=== PATIENT | female | born 1965 | race African-American/Black ===

== ENCOUNTER 2016-08-26 21:57 | Emergency (ER) | payer OTHER ==
[2016-08-26 22:10] VITALS: BP 127/57; PULSE 93; TEMP 98.6; BMI 36.6
--- NOTE | 2016-08-26 22:57 | PDOC ---
History of Present Illness - General History Source: Patient, Old Records Exam Limitations: No Limitations - History of Present Illness Initial Comments: 08/26/16 23:09 The patient is a 50 year old female with a with past medical history of DM, asthma, anemia, migraines, COPD (active smoker), HTN, HLD, CAD, CVA, ARVIND who presents to the emergency department today for further evaluation of a headache for 5 days, abdominal pains and vomiting for two days. The patint notes that her abdominal pain feels like tightness and radiates from her left lower quadrant to her right lower quardrant. The patient reports that she last vomited at 8 pm today. The patient also reports right 5th finger edema. <Adam Roberson - Last Filed: 08/27/16 01:55> <Elena Lucero - Last Filed: 08/27/16 02:39> - General Chief Complaint: Pain Stated Complaint: ABD PAIN Time Seen by Provider: 08/26/16 22:17 Past History <Adam Roberson - Last Filed: 08/27/16 01:55> - Past Medical History Anemia: Yes Asthma: Yes Cancer: No Cardiac Disorders: Yes (chest pain, CAD, [place] x3) CVA: Yes (CVA x3, TIA, left sided residual) COPD: Yes CHF: No Dementia: No Diabetes: Yes GI Disorders: Yes (PEPTIC ULCER) Disorders: No HTN: Yes Hypercholesterolemia: Yes HIV: (PT REPORTS SHE IS POITIVE ON HER RECORDS BUT REPORTS SHE IS NEGATIVE) Liver Disease: No Psychiatric Problems: Yes (BIPOLAR, POST TRAMATIC STRESS) Suicide Attempt (Hx): No Seizures: No Thyroid Disease: No - Surgical History Abdominal Surgery: Yes Appendectomy: No Cardiac Surgery: No Cholecystectomy: No Lung Surgery: No Neurologic Surgery: No Orthopedic Surgery: No - Immunization History Immunization Up to Date: No - Psycho/Social/Smoking Cessation Hx Anxiety: Yes (DEPRESSION, BORDERLINE PERS DISORDER, PTSD) Suicidal Ideation: No Smoking Status: Yes Smoking History: Current every day smoker Have you smoked in the past 12 months: Yes Number of Cigarettes Smoked Daily: 3 If you are a former smoker, when did you quit?: 09/18/14 Cigars Per Day: 20 Information on smoking cessation initiated: No 'Breaking Loose' booklet given: 10/30/14 Hx Alcohol Use: No Drug/Substance Use Hx: No Substance Use Type: None Hx Substance Use Treatment: Yes <Elena Lucero - Last Filed: 08/27/16 02:39> - Past Medical History Allergies/Adverse Reactions: Allergies Allergy/AdvReac Type Severity Reaction Status Date / Time hydromorphone HCl Allergy Intermediate Itching Verified 08/26/16 22:04 [From Dilaudid] amoxicillin [Amoxicillin] Allergy Verified 08/26/16 22:04 ampicillin Allergy Verified 08/26/16 22:04 aspirin Allergy Verified 08/26/16 22:04 cranberry Allergy Verified 08/26/16 22:04 doxycycline Allergy Verified 08/26/16 22:04 Fish Containing Products Allergy Difficulty Verified 08/26/16 22:04 Breathing haloperidol [From Haldol] Allergy Verified 08/26/16 22:04 haloperidol lactate Allergy Verified 08/26/16 22:04 [From Haldol] ibuprofen [From Motrin] Allergy Verified 08/26/16 22:04 ketorolac tromethamine Allergy Verified 08/26/16 22:04 [From Toradol] levofloxacin [From Levaquin] Allergy Verified 08/26/16 22:04 lidocaine [From Lidoderm] Allergy Verified 08/26/16 22:04 milk Allergy Difficulty Verified 08/26/16 22:04 Breathing oxycodone HCl [From Percocet] Allergy Verified 08/26/16 22:04 Penicillins Allergy Verified 08/26/16 22:04 sulfamethoxazole Allergy Verified 08/26/16 22:04 [From Bactrim] tomato [Tomato] Allergy Hives Verified 08/26/16 22:04 trimethoprim [From Bactrim] Allergy Verified 08/26/16 22:04 warfarin sodium Allergy Verified 08/26/16 22:04 [From Coumadin] Gravy Allergy Unknown Uncoded 08/26/16 22:04 Cranberry/Cranberry juice Allergy Uncoded 08/26/16 22:04 Home Medications: Ambulatory Orders Clopidogrel Bisulfate [Plavix -] 75 mg PO DAILY #0 04/12/14 Docusate Sodium [Colace -] 100 mg PO DAILY #0 04/12/14 Sitagliptin Phosphate [Januvia -] 100 mg PO AM #0 04/12/14 Metformin HCl [Glucophage] 1,000 mg PO BID 05/12/14 Quetiapine Fumarate [Seroquel -] 450 mg PO HS 05/12/14 Simvastatin [Zocor -] 40 mg PO HS 05/12/14 Bupropion HCl [Forfivo Xl] 450 mg PO DAILY 09/18/14 Ferrous Sulfate [Feosol] 325 mg PO DAILY 09/18/14 Albuterol 0.083% Nebulizer Laurie [Ventolin 0.083% Nebulizer Soln -] 1 neb NEB Q6H PRN 09/27/14 Albuterol Sulfate Inhaler - [Ventolin HFA Inhaler -] 2 inh PO Q4H PRN 09/27/14 Nebulizer/Compressor [Comp-Air Elite Comp Nebulizer] 1 each MC DAILY #1 each Insulin Lispro [Humalog] 5 unit SQ TID 10/31/14 Aripiprazole [Abilify -] 10 mg PO DAILY 10/23/15 Cephalexin [Keflex] 500 mg PO QID #40 capsule 10/23/15 Clonazepam [Klonopin] 1 mg PO BID 10/23/15 Divalproex [Depakote -] 500 mg PO DAILY 10/23/15 Insulin Detemir [Levemir Flextouch] 10 unit SQ HS 10/23/15 Levothyroxine Sodium [Unithroid] 50 mcg PO DAILY 10/23/15 Morphine *Immediate Release* [Msir -] 15 mg PO Q6H PRN 10/23/15 Nitrofurantoin Monohyd/M-Cryst [Macrobid -] 100 mg PO BID 10/23/15 Nitroglycerin Sublingual [Nitrostat -] 0.6 mg SL BID PRN 10/23/15 Ondansetron HCl [Zofran] 4 mg PO Q8H 10/23/15 Pantoprazole Sodium [Protonix -] 40 mg PO DAILY 10/23/15 Polyethylene Glycol 3350 [Miralax (For Daily Use) -] 17 gm PO DAILY 10/23/15 Quetiapine Fumarate [Seroquel] 200 tab PO DAILY 10/23/15 Sennosides [Senna] 8.6 mg PO HS 10/23/15 Cephalexin Monohydrate [Keflex -] 500 mg PO QID #40 capsule 11/26/15 Review of Systems - Review of Systems Able to Perform ROS?: Yes Comments:: 08/26/16 23:10 CONSTITUTIONAL: Absent: fever, chills, diaphoresis, generalized weakness, malaise, loss of appetite HEENT: Absent: rhinorrhea, nasal congestion, throat pain, throat swelling, difficulty swallowing, mouth swelling, ear pain, eye pain, visual Changes CARDIOVASCULAR: Absent: chest pain, syncope, palpitations, irregular heart rate, lightheadedness , peripheral edema RESPIRATORY: Absent: cough, shortness of breath, dyspnea with exertion, orthopnea, wheezing, stridor, hemoptysis GASTROINTESTINAL: Present: Diarrhea, vomiting Absent: abdominal pain, abdominal distension, constipation, melena, hematochezia GENITOURINARY: Absent: dysuria, frequency, urgency, hesitancy, hematuria, flank pain, genital pain MUSCULOSKELETAL: Present: Right 5th finger edema SKIN: Absent: rash, itching, pallor HEMATOLOGIC/IMMUNOLOGIC: Absent: easy bleeding, easy bruising, lymphadenopathy, frequent infections ENDOCRINE: Absent: unexplained weight gain, unexplained weight loss, heat intolerance, cold intolerance NEUROLOGIC: Present: headache Absent: focal weakness or paresthesias, dizziness, unsteady gait, seizure, mental status changes, bladder or bowel incontinence PSYCHIATRIC: Absent: anxiety, depression, suicidal or homicidal ideation, hallucinations. <Adam Roberson - Last Filed: 08/27/16 01:55> *Physical Exam - Vital Signs Last Vital Signs Temp Pulse Resp BP Pulse Ox 98.6 F 93 H 14 127/57 96 08/26/16 22:05 08/26/16 22:05 08/26/16 22:05 08/26/16 22:05 08/26/16 22:05 - Physical Exam Comments: 08/26/16 23:10 GENERAL: Well developed, well nourished. Awake and alert. No acute distress. HEENT: Normocephalic, atraumatic. PERRLA, EOMI. No conjunctival pallor. Sclera are non- icteric. Moist mucous membranes. Oropharynx is clear. NECK: Supple. Full ROM. No JVD. Carotid pulses 2+ and symmetric, without bruits. No thyromegaly. No lymphadenopathy. CARDIOVASCULAR: Regular rate and rhythm. No murmurs, rubs, or gallops. Distal pulses are 2+ and symmetric. PULMONARY: No evidence of respiratory distress. Lungs clear to auscultation bilaterally. No wheezing, rales or rhonchi. ABDOMINAL: (+) Tenderness on palpation. Soft. Non-distended. No rebound or guarding. No organomegaly. Normoactive bowel sounds. MUSCULOSKELETAL Normal range of motion at all joints. No bony deformities or tenderness. No CVA tenderness. EXTREMITIES: No cyanosis. No clubbing. No edema. No calf tenderness. SKIN: Warm and dry. Normal capillary refill. No rashes. No jaundice. NEUROLOGICAL: Alert, awake, appropriate. Cranial nerves 2-12 intact. No deficits to light touch and temperature in face, upper extremities and lower extremities. No motor deficits in the in face, upper extremities and lower extremities. Normoreflexic in the upper and lower extremities. Normal speech. Toes are down-going bilaterally. Gait is normal without ataxia. PSYCHIATRIC: Cooperative. Good eye contact. Appropriate mood and affect. <Adam Roberson - Last Filed: 08/27/16 01:55> - Vital Signs Last Vital Signs Temp Pulse Resp BP Pulse Ox 98.6 F 93 H 14 127/57 96 08/26/16 22:05 08/26/16 22:05 08/26/16 22:05 08/26/16 22:05 08/26/16 22:05 <Elena Lucero - Last Filed: 08/27/16 02:39> ED Treatment Course - LABORATORY CBC & Chemistry Diagram: 08/26/16 23:45 08/26/16 23:45 <Adam Roberson - Last Filed: 08/27/16 01:55> - LABORATORY CBC & Chemistry Diagram: 08/26/16 23:45 08/26/16 23:45 <Elena Lucero - Last Filed: 08/27/16 02:39> Medical Decision Making - Medical Decision Making 08/27/16 01:55 Called skilled nursing. Patient's nurse was informed that the patient has a UTI and requested a psych eval. <Adam Roberson - Last Filed: 08/27/16 01:55> - Medical Decision Making 08/27/16 01:44 50 yo female BIBA from [facility]. She came WITHOUT ANY paperwork from [facility]. -she has c/o Nausea,vomiting,diarrhea, headache VITAL SIGNS-normotensive, afebrile -cbc and chemistries are unremarkable This pt did not have any vomiting and diarrhea during her ER visit -Urinalysis shows +++UTI I called the skilled nursing and spoke to her nurse. I told her that we received NO PAPERWORK from them. 1-We reviewed the pt's many diagnoses_ migraines, type 2 diabetes, undifferentiated schizophrenia, copd,, atypical face pain,OA 2-I reviewed her stable VS and the lab work with the nurse 3-I informed the nurse that this pt has a UTI and will be started on macrobid 4-the pt will be discharged back to the [facility] 5-pt will need continued antibiotics for her UTI I explained that I started her on macrobid because of the multiple antibiotic allergies I also called Dr Ernie Banuelos and told him of this pt's ER visit and the need for antibiotics for UTI at the skilled nursing. plan- since the pt was afebrile,hod no vomiting in ER,it was felt that we would try to place the pt on po antibiotics at this time 08/27/16 02:21 <Elena Lucero - Last Filed: 08/27/16 02:39> *DC/Admit/Observation/Transfer - Attestations Scribe Attestion: 08/26/16 23:10 Documentation prepared by Adam Roberson, acting as medical receptionist for Elena Lucero MD. <Adam Roberson - Last Filed: 08/27/16 01:55> <Elena Lucero - Last Filed: 08/27/16 02:39> Diagnosis at time of Disposition: UTI (urinary tract infection) Qualifiers: Urinary tract infection type: site unspecified Hematuria presence: without hematuria Qualified Code(s): N39.0 - Urinary tract infection, site not specified - Discharge Dispostion Disposition: HOME Condition at time of disposition: Stable - Patient Instructions Printed Discharge Instructions: DI for Urinary Tract Infection (UTI) Additional Instructions: THIS PATIENT HAS A UTI AND NEEDS ANTIBIOTICS. DUE TO MULTIPLE ALLERGIES SHE WAS STARTED ON MACROBID
[2016-08-26] MEDS ORDERED: ONDANSETRON *ODT* 4 MG TABLET SL ONE (23:02)
[2016-08-26] MEDS ORDERED: ONDANSETRON *ODT* 4 MG TABLET ONE (23:56)
[2016-08-27 00:07] LABS: BASOPHIL 0.7 % (0-2.0); EOSINOPHIL 1.2 % (0-4.5); MCH 28.2 pg (25.7-33.7); MCHC 34.5 g/dl (32.0-36.0); MEAN CELL VOLUME 81.7 fl (80-96); MEAN PLT VOLUME 10.6 fl (7.5-11.1); NEUTROPHILS 63.8 % (42.8-82.8); PLATELET COUNT 166 K/MM3 (134-434); WHITE BLOOD COUNT 9.8 K/mm3 (4.0-10.0)
[2016-08-27] MEDS ORDERED: SODIUM CHLORIDE 1,000 ML IV STA (00:29)
[2016-08-27 00:32] LABS: ALBUMIN 3.4 g/dl (3.4-5.0); ANION GAP 7 (8-16); BILIRUBIN,TOTAL 0.3 mg/dL (0.2-1.0); CALCIUM 8.8 mg/dL (8.5-10.1); CO2 31 mmol/L (21-32); CREATININE 0.9 mg/dL (0.55-1.02); GLUCOSE,RANDOM 83 mg/dL (74-106); SGPT/ALT 18 U/L (12-78)
[2016-08-27 00:33] LABS: ALK PHOS 85 U/L (45-117)
[2016-08-27 00:35] LABS: SGOT/AST 21 U/L (15-37)
[2016-08-27 01:15] LABS: URINE APPEARANCE SLCLOUDY; URINE BILIRUBIN NEGATIVE (NEGATIVE); URINE BLOOD NEGATIVE (NEGATIVE); URINE COLOR YELLOW; URINE GLUCOSE (UA) NEGATIVE (NEGATIVE); URINE KETONE NEGATIVE (NEGATIVE); URINE NITRITE NEGATIVE (NEGATIVE); URINE PROTEIN NEGATIVE (NEGATIVE); URINE UROBILINOGEN NEGATIVE E.U./dl (0.2-1.0)
[2016-08-27 01:19] LABS: URINE LEUK ESTERASE 3+ (NEGATIVE)
[2016-08-27 01:22] LABS: URINE BACTERIA RARE /hpf (NONE SEEN); URINE HYALINE CAST 3 /lpf; URINE MUCUS RARE; URINE RBC 4 /hpf (0-3); URINE WBC 69 /hpf (3-5)
[2016-08-27] MEDS ORDERED: morphine CARPU-JECT 2 MG/1 ML DISP.SYRIN IVPUSH ONE (01:42)
[2016-08-27] MEDS ORDERED: PHENAZOPYRIDINE HCL 100 MG TABLET (FP) PO ONE (01:43)
[2016-08-27] MEDS ORDERED: NITROFURANTOIN MACROCRYSTAL 50 MG CAPSULE (FP) PO SCH (01:45)
[2016-08-27] MEDS ORDERED: NITROFURANTOIN MACROCRYSTAL 50 MG CAPSULE (FP) ONE (01:46)
[2016-08-27] MEDS ORDERED: PHENAZOPYRIDINE HCL 100 MG TABLET (FP) ONE (01:46)
[2016-08-27] MEDS ORDERED: morphine CARPU-JECT 2 MG/1 ML DISP.SYRIN ONE (01:46)
== END 2016-08-27 03:57 ==
LOC: JER 21:57
PROC: 3E0337Z Introduction of Electrolytic and Water Balance Substance into Peripheral Vein, Percutaneous Approach (ICD-10-PCS; principal; 2016-08-26)
PROC: 3E033NZ Introduction of Analgesics, Hypnotics, Sedatives into Peripheral Vein, Percutaneous Approach (ICD-10-PCS; 2016-08-26)
DX: N39.0 Urinary tract infection, site not specified (principal); D64.9 Anemia, unspecified; J45.909 Unspecified asthma, uncomplicated; I25.10 Atherosclerotic heart disease of native coronary artery without angina pectoris; I10 Essential (primary) hypertension; F17.220 Nicotine dependence, chewing tobacco, uncomplicated; I25.2 Old myocardial infarction; I69.854 Hemiplegia and hemiparesis following other cerebrovascular disease affecting left non-dominant side; E11.9 Type 2 diabetes mellitus without complications; Z79.4 Long term (current) use of insulin; Z79.84 Long term (current) use of oral hypoglycemic drugs; J44.9 Chronic obstructive pulmonary disease, unspecified; F31.9 Bipolar disorder, unspecified; F43.10 Post-traumatic stress disorder, unspecified
CPT/HCPCS: 36415; 80053; 81003; 81015; 85025; 96361; 96374; 99283-25

== ENCOUNTER → 2016-11-08 | Emergency (ER) | payer OTHER ==
[~2016-11-08] MED LIST: DEXTROSE 5%-0.45% SALINE 1,000 ML IV SCH
[2016-11-08 19:00] VITALS: TEMP 98.4; BMI 36.9
--- NOTE | 2016-11-08 19:56 | PDOC ---
History of Present Illness - General History Source: Patient Exam Limitations: No Limitations - History of Present Illness Initial Comments: 11/08/16 20:04 The patient is a 51 year old female with significant past medical history of multiple drug and food allergy, diabetes, CAD, hypertension, hyperlipidemia, CVA with mild L sided weakness, asthma/COPD, nicotine dependence, ARVIND, anemia, and migraines who presents to the ED [facility] from [facility] for 1 day of L sided chest pain. Patient describes her pain as a 10/10 and sharp sensation radiating down the L arm with associated SOB and nausea, but no vomiting. No exacerbating or alleviating factors. States she developed pain yesterday while at rest. Patient also has complaints of abdominal discomfort. Denies lightheadedness, diaphoresis, jaw pain, palpitations, or leg swelling. The patient denies fever, chills, cough, and diarrhea. Allergies: hydromorphone HCl, amoxicillin, ampicillin, aspirin, doxycycline, haloperidol, haloperidol lactate, ibuprofen, ketorolac tromethamine, levofloxacin, lidocaine, oxycodone HCl, penicillins, sulfamethoxazole, trimethoprim, warfarin sodium Social History: Current smoker (ppd). Cocaine use Past Surgical History: partial hysterectomy PCP: Dr. Juan Manuel Roy <Priya Gomez - Last Filed: 11/09/16 01:37> - General History Source: Patient <Marcellus Castaneda - Last Filed: 11/12/16 19:18> - General Chief Complaint: Chest Pain Stated Complaint: CHEST PAIN Time Seen by Provider: 11/08/16 19:52 Past History <Priya Gomez - Last Filed: 11/09/16 01:37> - Past Medical History Anemia: Yes Asthma: Yes Cancer: No Cardiac Disorders: Yes (chest pain, CAD, [place] x3) CVA: Yes (CVA x3, TIA, left sided residual) COPD: Yes CHF: No Dementia: No Diabetes: Yes GI Disorders: Yes (PEPTIC ULCER) Disorders: No HTN: Yes Hypercholesterolemia: Yes HIV: (PT REPORTS SHE IS POITIVE ON HER RECORDS BUT REPORTS SHE IS NEGATIVE) Liver Disease: No Psychiatric Problems: Yes (BIPOLAR, POST TRAMATIC STRESS) Suicide Attempt (Hx): No Seizures: No Thyroid Disease: No - Surgical History Abdominal Surgery: Yes Appendectomy: No Cardiac Surgery: No Cholecystectomy: No Lung Surgery: No Neurologic Surgery: No Orthopedic Surgery: No - Immunization History Immunization Up to Date: No - Psycho/Social/Smoking Cessation Hx Anxiety: No Suicidal Ideation: No Smoking Status: Yes Smoking History: Unknown if ever smoked Have you smoked in the past 12 months: No Number of Cigarettes Smoked Daily: 3 If you are a former smoker, when did you quit?: 09/18/14 Cigars Per Day: 20 Information on smoking cessation initiated: No 'Breaking Loose' booklet given: 10/30/14 Hx Alcohol Use: No Drug/Substance Use Hx: No Substance Use Type: None Hx Substance Use Treatment: Yes <Marcellus Castaneda - Last Filed: 11/12/16 19:18> - Past Medical History Allergies/Adverse Reactions: Allergies Allergy/AdvReac Type Severity Reaction Status Date / Time hydromorphone HCl Allergy Intermediate Itching Verified 11/08/16 19:01 [From Dilaudid] amoxicillin [Amoxicillin] Allergy Verified 11/08/16 19:01 ampicillin Allergy Verified 11/08/16 19:01 aspirin Allergy Verified 11/08/16 19:01 cranberry Allergy Verified 11/08/16 19:01 doxycycline Allergy Verified 11/08/16 19:01 Fish Containing Products Allergy Difficulty Verified 11/08/16 19:01 Breathing haloperidol [From Haldol] Allergy Verified 11/08/16 19:01 haloperidol lactate Allergy Verified 11/08/16 19:01 [From Haldol] ibuprofen [From Motrin] Allergy Verified 11/08/16 19:01 ketorolac tromethamine Allergy Verified 11/08/16 19:01 [From Toradol] levofloxacin [From Levaquin] Allergy Verified 11/08/16 19:01 lidocaine [From Lidoderm] Allergy Verified 11/08/16 19:01 milk Allergy Difficulty Verified 11/08/16 19:01 Breathing oxycodone HCl [From Percocet] Allergy Verified 11/08/16 19:01 Penicillins Allergy Verified 11/08/16 19:01 sulfamethoxazole Allergy Verified 11/08/16 19:01 [From Bactrim] tomato [Tomato] Allergy Hives Verified 11/08/16 19:01 trimethoprim [From Bactrim] Allergy Verified 11/08/16 19:01 warfarin sodium Allergy Verified 11/08/16 19:01 [From Coumadin] Gravy Allergy Unknown Uncoded 11/08/16 19:01 Cranberry/Cranberry juice Allergy Uncoded 11/08/16 19:01 Home Medications: Ambulatory Orders Clopidogrel Bisulfate [Plavix -] 75 mg PO DAILY #0 04/12/14 Docusate Sodium [Colace -] 100 mg PO DAILY #0 04/12/14 Sitagliptin Phosphate [Januvia -] 100 mg PO AM #0 04/12/14 Metformin HCl [Glucophage] 1,000 mg PO BID 05/12/14 Quetiapine Fumarate [Seroquel -] 450 mg PO HS 05/12/14 Simvastatin [Zocor -] 40 mg PO HS 05/12/14 Bupropion HCl [Forfivo Xl] 450 mg PO DAILY 09/18/14 Ferrous Sulfate [Feosol] 325 mg PO DAILY 09/18/14 Albuterol 0.083% Nebulizer Laurie [Ventolin 0.083% Nebulizer Soln -] 1 neb NEB Q6H PRN 09/27/14 Albuterol Sulfate Inhaler - [Ventolin HFA Inhaler -] 2 inh PO Q4H PRN 09/27/14 Insulin Lispro [Humalog] 5 unit SQ TID 10/31/14 Aripiprazole [Abilify -] 10 mg PO DAILY 10/23/15 Cephalexin [Keflex] 500 mg PO QID #40 capsule 10/23/15 Clonazepam [Klonopin] 1 mg PO BID 10/23/15 Divalproex [Depakote -] 500 mg PO DAILY 10/23/15 Insulin Detemir [Levemir Flextouch] 10 unit SQ HS 10/23/15 Levothyroxine Sodium [Unithroid] 50 mcg PO DAILY 10/23/15 Morphine *Immediate Release* [Msir -] 15 mg PO Q6H PRN 10/23/15 Nitroglycerin Sublingual [Nitrostat -] 0.6 mg SL BID PRN 10/23/15 Ondansetron HCl [Zofran] 4 mg PO Q8H 10/23/15 Pantoprazole Sodium [Protonix -] 40 mg PO DAILY 10/23/15 Polyethylene Glycol 3350 [Miralax (For Daily Use) -] 17 gm PO DAILY 10/23/15 Quetiapine Fumarate [Seroquel] 200 tab PO DAILY 10/23/15 Sennosides [Senna] 8.6 mg PO HS 10/23/15 Unobtainable 08/27/16 Review of Systems - Review of Systems Able to Perform ROS?: Yes Comments:: 11/08/16 20:04 CONSTITUTIONAL: Absent: fever, chills, diaphoresis, generalized weakness, malaise, loss of appetite HEENT: Absent: rhinorrhea, nasal congestion, throat pain, throat swelling, difficulty swallowing, mouth swelling, ear pain, eye pain, visual Changes CARDIOVASCULAR: +L sided chest pain radiating down L arm Absent: syncope, palpitations, irregular heart rate, lightheadedness, peripheral edema RESPIRATORY: +SOB Absent: cough, dyspnea with exertion, orthopnea, wheezing, stridor, hemoptysis GASTROINTESTINAL: +abdominal discomfort, nausea Absent: abdominal distension, vomiting, diarrhea, constipation, melena, hematochezia GENITOURINARY: Absent: dysuria, frequency, urgency, hesitancy, hematuria, flank pain, genital pain MUSCULOSKELETAL: Absent: arthralgia, joint swelling SKIN: Absent: rash, itching, pallor NEUROLOGIC: Absent: headache, focal paresthesias, dizziness, unsteady gait, seizure, mental status changes, bladder or bowel incontinence <Priya Gomez - Last Filed: 11/09/16 01:37> *Physical Exam - Vital Signs Last Vital Signs Temp Pulse Resp BP Pulse Ox 98.4 F 84 18 103/75 97 11/08/16 18:36 11/08/16 18:36 11/08/16 18:36 11/08/16 18:36 11/08/16 18:36 - Physical Exam Comments: 11/08/16 20:04 GENERAL: Morbidly obese. Well developed, well nourished. Awake and alert. No acute distress. HEENT: Normocephalic, atraumatic. PERRLA, EOMI. No conjunctival pallor. Sclera are non- icteric. Moist mucous membranes. Oropharynx is clear. NECK: Supple. Full ROM. No JVD. Carotid pulses 2+ and symmetric, without bruits. No thyromegaly. No lymphadenopathy. CARDIOVASCULAR: Regular rate and rhythm. No murmurs, rubs, or gallops. Distal pulses are 2+ and symmetric. PULMONARY: No evidence of respiratory distress. Lungs clear to auscultation bilaterally. No wheezing, rales or rhonchi. ABDOMINAL: Protuberant. Soft. Non-tender. Non-distended. No rebound or guarding. No organomegaly. Normoactive bowel sounds. MUSCULOSKELETAL Normal range of motion at all joints. No bony deformities or tenderness. No CVA tenderness. EXTREMITIES: No cyanosis. No clubbing. No edema. No calf tenderness. SKIN: Warm and dry. Normal capillary refill. No rashes. No jaundice. NEUROLOGICAL: Alert, awake, appropriate. Cranial nerves 2-12 intact. No gross neurological deficits. <Priya Gomez - Last Filed: 11/09/16 01:37> - Vital Signs Last Vital Signs Temp Pulse Resp BP Pulse Ox 98.4 F 84 18 103/75 97 11/08/16 18:36 11/08/16 18:36 11/08/16 18:36 11/08/16 18:36 11/08/16 18:36 <Marcellus Castaneda - Last Filed: 11/12/16 19:18> Heart Score/ECG Review - ECG Impressions Comment:: 11/08/16 20:04 NSR @84bpm Cannot r/o anterior infarct, age undetermined Abnormal ECG 11/09/16 01:37 NSR @83bpm Nonspecific T wave abnormality Prolonged QT Abnormal ECG <Priya Gomez - Last Filed: 11/09/16 01:37> ED Treatment Course - LABORATORY CBC & Chemistry Diagram: 11/08/16 20:00 11/08/16 21:20 <Priya Gomez - Last Filed: 11/09/16 01:37> - LABORATORY CBC & Chemistry Diagram: 11/08/16 20:00 11/08/16 21:20 <Marcellus Castaneda - Last Filed: 11/12/16 19:18> Medical Decision Making - Medical Decision Making 11/08/16 22:[address] Jassi Lee (via answering service) who is covering for Dr. Juan Manuel Roy at 22:20 Awaiting call back 11/08/16 22:34 Patient's case discussed with Dr. Dawson Herman who is covering for Dr. Lee at 22:34 <Priya Gomez - Last Filed: 11/09/16 01:37> - Medical Decision Making 11/09/16 02:02 Pt is hemodynamically stable. Sugar improved to 86. No chest pain at this time. EKG unchanged from the first one. Will discharged back to [facility]. 11/12/16 19:18 Dr. Castaneda: The scribe's documentation has been prepared under my direction and personally reviewed by me in its entirery. I confirm that the note above accurately reflects all work, treatment, procedures, and medical decision making performed by me. <Marcellus Castaneda - Last Filed: 11/12/16 19:18> *DC/Admit/Observation/Transfer - Attestations Scribe Attestion: 11/08/16 20:05 Documentation prepared by Priya Gomez, acting as medical record technician for Marcellus Castaneda MD/DO. <Priya Gomez - Last Filed: 11/09/16 01:37> - Discharge Dispostion Admit: No <Marcellus Castaneda - Last Filed: 11/12/16 19:18> Diagnosis at time of Disposition: Diabetes type 2, controlled, Chest pain - Discharge Dispostion Disposition: HOME Condition at time of disposition: Stable - Referrals Referrals: Juan Manuel Roy [Primary Care Provider] - - Patient Instructions Printed Discharge Instructions: DI for Chest Pain
[2016-11-08 20:46] LABS: BASOPHIL 0.8 % (0-2.0); EOSINOPHIL 3.1 % (0-4.5); MCH 27.3 pg (25.7-33.7); MCHC 33.6 g/dl (32.0-36.0); MEAN CELL VOLUME 81.3 fl (80-96); MEAN PLT VOLUME 10.6 fl (7.5-11.1); NEUTROPHILS 62.4 % (42.8-82.8); PLATELET COUNT 207 K/MM3 (134-434); RDW 16.7 % (11.6-15.6)
[2016-11-08 21:48] LABS: INR 1.12 (0.82-1.09); PROTHROMBIN TIME (PATIENT) 12.3 SEC (9.98-11.88)
[2016-11-08 21:52] LABS: ALBUMIN 3.3 g/dl (3.4-5.0); ANION GAP 9 (8-16); BILIRUBIN,TOTAL 0.2 mg/dL (0.2-1.0); CALCIUM 8.4 mg/dL (8.5-10.1); CO2 27 mmol/L (21-32); CREATININE 1.1 mg/dL (0.55-1.02); GLUCOSE,RANDOM 65 mg/dL (74-106); MAGNESIUM 1.7 mg/dL (1.8-2.4); SGOT/AST 14 U/L (15-37); SGPT/ALT 16 U/L (12-78); TOT PROT 6.9 g/dl (6.4-8.2)
[2016-11-08 21:54] LABS: ALK PHOS 87 U/L (45-117); TROPONIN I < 0.02 ng/ml (0.00-0.05)
[2016-11-09 05:17] VITALS: BP 86/58; PULSE 83
--- NOTE | 2016-11-09 10:02 | EKG ---
Test Reason : Blood Pressure : / mmHG Vent. Rate : 084 BPM Atrial Rate : 084 BPM P-R Int : 144 ms QRS Dur : 090 ms QT Int : 378 ms P-R-T Axes : 038 017 028 degrees QTc Int : 446 ms NORMAL SINUS RHYTHM CANNOT RULE OUT ANTERIOR INFARCT , AGE UNDETERMINED ABNORMAL ECG WHEN COMPARED WITH ECG OF 29-OCT-2014 23:56, NONSPECIFIC T WAVE ABNORMALITY, IMPROVED IN INFERIOR LEADS Confirmed by CARA DANIELS, NAVNEET ([id number]) on 11/09/2016 10:01:56 AM Referred By: Confirmed By:NAVNEET MARROQUIN MD
--- NOTE | 2016-11-10 15:39 | EKG ---
Test Reason : Blood Pressure : / mmHG Vent. Rate : 083 BPM Atrial Rate : 083 BPM P-R Int : 146 ms QRS Dur : 088 ms QT Int : 392 ms P-R-T Axes : 042 030 047 degrees QTc Int : 460 ms NORMAL SINUS RHYTHM NONSPECIFIC T WAVE ABNORMALITY PROLONGED QT ABNORMAL ECG WHEN COMPARED WITH ECG OF 08-NOV-2016 18:50, NO SIGNIFICANT CHANGE WAS FOUND Confirmed by TAMIE DANIELS, PRITI ([id number]) on 11/10/2016 3:38:46 PM Referred By: Confirmed By:PRITI WILLETT MD
== END | disposition home or self-care (01) ==
LOC: JER 18:36
DX: E11.9 Type 2 diabetes mellitus without complications (principal); R07.9 Chest pain, unspecified; I25.10 Atherosclerotic heart disease of native coronary artery without angina pectoris; I10 Essential (primary) hypertension; E78.5 Hyperlipidemia, unspecified; J44.9 Chronic obstructive pulmonary disease, unspecified; Z86.73 Personal history of transient ischemic attack (TIA), and cerebral infarction without residual deficits; G47.33 Obstructive sleep apnea (adult) (pediatric); F31.9 Bipolar disorder, unspecified; Z87.891 Personal history of nicotine dependence; Z79.4 Long term (current) use of insulin
CPT/HCPCS: 36415; 71010-TC; 80053; 82550; 82553; 83690; 83735; 84484; 85025; 85610; 93005; 93010; 99283-25

== ENCOUNTER 2016-11-28 03:32 | Emergency (ER) | payer OTHER ==
[2016-11-28 04:00] VITALS: BP 98/65; PULSE 89; TEMP 98.8; BMI 36.9
--- NOTE | 2016-11-28 04:16 | PDOC ---
*Physical Exam - Vital Signs Last Vital Signs Temp Pulse Resp BP Pulse Ox 98.8 F 89 18 98/65 98 11/28/16 03:32 11/28/16 03:32 11/28/16 03:32 11/28/16 03:32 11/28/16 03:32 Medical Decision Making - Medical Decision Making 11/28/16 04:15 agree with care from KEYLINER Kurt *DC/Admit/Observation/Transfer Diagnosis at time of Disposition: Leg pain, bilateral - Discharge Dispostion Disposition: [facility] Condition at time of disposition: Stable - Referrals Referrals: Juan Manuel Roy [Primary Care Provider] - - Patient Instructions Printed Discharge Instructions: DI for Leg Pain Print Language: KENYAN
--- NOTE | 2016-11-28 05:36 | PDOC ---
History of Present Illness - General Chief Complaint: Pain Stated Complaint: LEG PAIN Time Seen by Provider: 11/28/16 03:44 History Source: Patient Exam Limitations: No Limitations - History of Present Illness Initial Comments: 11/28/16 05:32 51yo Female patient with extensive PmHx: HTN, HLD, CVA w/ Lt hemiparesis, COPD , Asthma, NIDDM, CAD, multiple food and drug allergies presents to ED via EMS from [facility] c/o nonspecific leg pain and staff wouldnt give her pain medications early. Patient denies CP, Abd pain, back pain, n/v/d, fever, diff breathing, coughing, congestion, or any other complaints at this time. Occurred: reports: just prior to arrival Severity: No: mild, moderate, severe Lower Extremity Pain Location: bilateral: leg Method of Injury: Yes: unknown. No: assault, burn, direct blow, fell, incised, motor vehicle accident, sports injury, twisted, other Modifying Factors: worse with: None, cold therapy, immobilization, pain medication, rest, other Associated Symptoms: Denies Lower Ext. Injury Location - Specific Injury Location Legs: bilateral: normal inspection, non-tender, normal range of motion Knees: bilateral no evidence of injury, bilateral normal range of motion, bilateral non-tender, bilateral normal inspection Extremity Pain Location - Extremity Pain Location Extremity Pain Locations: bilateral: leg (No swelling, edema, inflammation, sores or wounds noted.) Past History - Travel Traveled outside of the country in the last 30 days: No Close contact w/someone who was outside of country & ill: No - Past Medical History Allergies/Adverse Reactions: Allergies Allergy/AdvReac Type Severity Reaction Status Date / Time hydromorphone HCl Allergy Intermediate Itching Verified 11/28/16 03:52 [From Dilaudid] amoxicillin [Amoxicillin] Allergy Verified 11/28/16 03:52 ampicillin Allergy Verified 11/28/16 03:52 aspirin Allergy Verified 11/28/16 03:52 cranberry Allergy Verified 11/28/16 03:52 doxycycline Allergy Verified 11/28/16 03:52 Fish Containing Products Allergy Difficulty Verified 11/28/16 03:52 Breathing haloperidol [From Haldol] Allergy Verified 11/28/16 03:52 haloperidol lactate Allergy Verified 11/28/16 03:52 [From Haldol] ibuprofen [From Motrin] Allergy Verified 11/28/16 03:52 ketorolac tromethamine Allergy Verified 11/28/16 03:52 [From Toradol] levofloxacin [From Levaquin] Allergy Verified 11/28/16 03:52 lidocaine [From Lidoderm] Allergy Verified 11/28/16 03:52 milk Allergy Difficulty Verified 11/28/16 03:52 Breathing oxycodone HCl [From Percocet] Allergy Verified 11/28/16 03:52 Penicillins Allergy Verified 11/28/16 03:52 sulfamethoxazole Allergy Verified 11/28/16 03:52 [From Bactrim] tomato [Tomato] Allergy Hives Verified 11/28/16 03:52 trimethoprim [From Bactrim] Allergy Verified 11/28/16 03:52 warfarin sodium Allergy Verified 11/28/16 03:52 [From Coumadin] Gravy Allergy Unknown Uncoded 11/28/16 03:52 Cranberry/Cranberry juice Allergy Uncoded 11/28/16 03:52 Home Medications: Ambulatory Orders Clopidogrel Bisulfate [Plavix -] 75 mg PO DAILY #0 04/12/14 Docusate Sodium [Colace -] 100 mg PO DAILY #0 04/12/14 Sitagliptin Phosphate [Januvia -] 100 mg PO AM #0 04/12/14 Metformin HCl [Glucophage] 1,000 mg PO BID 05/12/14 Quetiapine Fumarate [Seroquel -] 450 mg PO HS 05/12/14 Simvastatin [Zocor -] 40 mg PO HS 05/12/14 Bupropion HCl [Forfivo Xl] 450 mg PO DAILY 09/18/14 Ferrous Sulfate [Feosol] 325 mg PO DAILY 09/18/14 Albuterol 0.083% Nebulizer Laurie [Ventolin 0.083% Nebulizer Soln -] 1 neb NEB Q6H PRN 09/27/14 Albuterol Sulfate Inhaler - [Ventolin HFA Inhaler -] 2 inh PO Q4H PRN 09/27/14 Insulin Lispro [Humalog] 5 unit SQ TID 10/31/14 Aripiprazole [Abilify -] 10 mg PO DAILY 10/23/15 Cephalexin [Keflex] 500 mg PO QID #40 capsule 10/23/15 Clonazepam [Klonopin] 1 mg PO BID 10/23/15 Divalproex [Depakote -] 500 mg PO DAILY 10/23/15 Insulin Detemir [Levemir Flextouch] 10 unit SQ HS 10/23/15 Levothyroxine Sodium [Unithroid] 50 mcg PO DAILY 10/23/15 Morphine *Immediate Release* [Msir -] 15 mg PO Q6H PRN 10/23/15 Nitroglycerin Sublingual [Nitrostat -] 0.6 mg SL BID PRN 10/23/15 Ondansetron HCl [Zofran] 4 mg PO Q8H 10/23/15 Pantoprazole Sodium [Protonix -] 40 mg PO DAILY 10/23/15 Polyethylene Glycol 3350 [Miralax (For Daily Use) -] 17 gm PO DAILY 10/23/15 Quetiapine Fumarate [Seroquel] 200 tab PO DAILY 10/23/15 Sennosides [Senna] 8.6 mg PO HS 10/23/15 Anemia: Yes Asthma: Yes Cancer: No Cardiac Disorders: Yes (chest pain, CAD, [place] x3) CVA: Yes (CVA x3, TIA, left sided residual) COPD: Yes CHF: No Dementia: No Diabetes: Yes GI Disorders: Yes (PEPTIC ULCER) Disorders: No HTN: Yes Hypercholesterolemia: Yes HIV: (PT REPORTS SHE IS POITIVE ON HER RECORDS BUT REPORTS SHE IS NEGATIVE) Liver Disease: No Psychiatric Problems: Yes (BIPOLAR, POST TRAMATIC STRESS) Suicide Attempt (Hx): No Seizures: No Thyroid Disease: No - Surgical History Abdominal Surgery: Yes Appendectomy: No Cardiac Surgery: No Cholecystectomy: No Lung Surgery: No Neurologic Surgery: No Orthopedic Surgery: No - Immunization History Immunization Up to Date: No - Psycho/Social/Smoking Cessation Hx Anxiety: No Suicidal Ideation: No Smoking Status: Yes Smoking History: Current every day smoker Have you smoked in the past 12 months: No Number of Cigarettes Smoked Daily: 3 If you are a former smoker, when did you quit?: 09/18/14 Cigars Per Day: 20 Information on smoking cessation initiated: No 'Breaking Loose' booklet given: 10/30/14 Hx Alcohol Use: No Drug/Substance Use Hx: No Substance Use Type: None Hx Substance Use Treatment: Yes Review of Systems - Review of Systems Able to Perform ROS?: Yes Is the patient limited Burmese proficient: No Musculoskeletal: Yes: Other (Bilateral Leg Pain) All Other Systems: Reviewed and Negative *Physical Exam - Vital Signs Last Vital Signs Temp Pulse Resp BP Pulse Ox 98.8 F 89 18 98/65 98 11/28/16 03:32 11/28/16 03:32 11/28/16 03:32 11/28/16 03:32 11/28/16 03:32 - Physical Exam General Appearance: Yes: Nourished, Appropriately Dressed. No: Apparent Distress, Mild Distress, Moderate Distress, Severe Distress Respiratory/Chest: positive: Lungs Clear, Normal Breath Sounds. negative: Chest Tender, Respiratory Distress, Accessory Muscle Use, Labored Respiration, Rapid RR Cardiovascular: positive: Regular Rhythm, Regular Rate Gastrointestinal/Abdominal: positive: Normal Bowel Sounds, Soft. negative: Distended, Guarding, Rebound, Tenderness Musculoskeletal: positive: Normal Inspection. negative: CVA Tenderness Extremity: positive: Normal Capillary Refill, Normal Inspection, Normal Range of Motion. negative: Tender, Pedal Edema, Swelling, Calf Tenderness, Erythema, Inflammation Integumentary: positive: Normal Color, Dry, Warm. negative: Cyanotic, Erythema , Pale, Cold, Clammy, Petechiae, Rash, Swelling, Bruising Neurologic: positive: hardwood faller II-XII NML intact, Fully Oriented, Alert, Normal Mood/ Affect, Normal Response, Motor Strength 5/5 *DC/Admit/Observation/Transfer Diagnosis at time of Disposition: Pain in both lower extremities - Discharge Dispostion Disposition: [facility] Condition at time of disposition: Stable Admit: No - Patient Instructions Printed Discharge Instructions: DI for Leg Pain Print Language: SLOVAK
== END 2016-11-28 06:24 ==
LOC: JER 03:32
DX: M79.605 Pain in left leg (principal); M79.604 Pain in right leg; I10 Essential (primary) hypertension; E78.00 Pure hypercholesterolemia, unspecified; J44.9 Chronic obstructive pulmonary disease, unspecified; J45.909 Unspecified asthma, uncomplicated; E11.9 Type 2 diabetes mellitus without complications; Z79.4 Long term (current) use of insulin; Z79.84 Long term (current) use of oral hypoglycemic drugs; F17.210 Nicotine dependence, cigarettes, uncomplicated
CPT/HCPCS: 99282-25

== ENCOUNTER 2016-12-18 16:22 | Emergency (ER) | payer OTHER ==
--- NOTE | 2016-12-18 16:40 | PDOC ---
History of Present Illness - General Chief Complaint: Chronic pain Stated Complaint: BACK PAIN Time Seen by Provider: 12/18/16 16:26 - History of Present Illness Initial Comments: 12/18/16 18:59 The patient is a 51 year old female with a significant past medical history of extensive psych diagnosis and laminectomy with chronic pain who presents to the emergency c/o waking up with severe pain in her back and legs today. She reports pain is constant and shooting in nature and extends from her upper back down her spinal cord to her legs. Her home morphine she says was not helpful. The patient denies chest pain, shortness of breath, headache and dizziness. Denies fever, chills, nausea, vomit, diarrhea and constipation. Denies dysuria, frequency, urgency and hematuria. Allergies:Hydromorphone, amoxicillin, ampicillin, ASA, cranberrys, doxy, fish, haloperidol, ibuprofen, ketorolac, levo, lidocaine, milk Past surgical history: laminectomy, partial hysterectomy Social history: 20 pack year smoking history, denies drinking or illicits PMD - 12/18/16 18:59 Past History - Past Medical History Allergies/Adverse Reactions: Allergies Allergy/AdvReac Type Severity Reaction Status Date / Time hydromorphone HCl Allergy Intermediate Itching Verified 12/18/16 16:42 [From Dilaudid] amoxicillin [Amoxicillin] Allergy Verified 12/18/16 16:42 ampicillin Allergy Verified 12/18/16 16:42 aspirin Allergy Verified 12/18/16 16:42 cranberry Allergy Verified 12/18/16 16:42 doxycycline Allergy Verified 12/18/16 16:42 Fish Containing Products Allergy Difficulty Verified 12/18/16 16:42 Breathing haloperidol [From Haldol] Allergy Verified 12/18/16 16:42 haloperidol lactate Allergy Verified 12/18/16 16:42 [From Haldol] ibuprofen [From Motrin] Allergy Verified 12/18/16 16:42 ketorolac tromethamine Allergy Verified 12/18/16 16:42 [From Toradol] levofloxacin [From Levaquin] Allergy Verified 12/18/16 16:42 lidocaine [From Lidoderm] Allergy Verified 12/18/16 16:42 milk Allergy Difficulty Verified 12/18/16 16:42 Breathing oxycodone HCl [From Percocet] Allergy Verified 12/18/16 16:42 Penicillins Allergy Verified 12/18/16 16:42 sulfamethoxazole Allergy Verified 12/18/16 16:42 [From Bactrim] tomato [Tomato] Allergy Hives Verified 12/18/16 16:42 trimethoprim [From Bactrim] Allergy Verified 12/18/16 16:42 warfarin sodium Allergy Verified 12/18/16 16:42 [From Coumadin] Gravy Allergy Unknown Uncoded 12/18/16 16:42 Cranberry/Cranberry juice Allergy Uncoded 12/18/16 16:42 Home Medications: Ambulatory Orders Clopidogrel Bisulfate [Plavix -] 75 mg PO DAILY #0 04/12/14 Docusate Sodium [Colace -] 100 mg PO DAILY #0 04/12/14 Sitagliptin Phosphate [Januvia -] 100 mg PO AM #0 04/12/14 Metformin HCl [Glucophage] 1,000 mg PO BID 05/12/14 Quetiapine Fumarate [Seroquel -] 450 mg PO HS 05/12/14 Simvastatin [Zocor -] 40 mg PO HS 05/12/14 Bupropion HCl [Forfivo Xl] 450 mg PO DAILY 09/18/14 Ferrous Sulfate [Feosol] 325 mg PO DAILY 09/18/14 Albuterol 0.083% Nebulizer Laurie [Ventolin 0.083% Nebulizer Soln -] 1 neb NEB Q6H PRN 09/27/14 Albuterol Sulfate Inhaler - [Ventolin HFA Inhaler -] 2 inh PO Q4H PRN 09/27/14 Insulin Lispro [Humalog] 5 unit SQ TID 10/31/14 Aripiprazole [Abilify -] 10 mg PO DAILY 10/23/15 Cephalexin [Keflex] 500 mg PO QID #40 capsule 10/23/15 Clonazepam [Klonopin] 1 mg PO BID 10/23/15 Divalproex [Depakote -] 500 mg PO DAILY 10/23/15 Insulin Detemir [Levemir Flextouch] 10 unit SQ HS 10/23/15 Levothyroxine Sodium [Unithroid] 50 mcg PO DAILY 10/23/15 Morphine *Immediate Release* [Msir -] 15 mg PO Q6H PRN 10/23/15 Nitroglycerin Sublingual [Nitrostat -] 0.6 mg SL BID PRN 10/23/15 Ondansetron HCl [Zofran] 4 mg PO Q8H 10/23/15 Pantoprazole Sodium [Protonix -] 40 mg PO DAILY 10/23/15 Polyethylene Glycol 3350 [Miralax (For Daily Use) -] 17 gm PO DAILY 10/23/15 Quetiapine Fumarate [Seroquel] 200 tab PO DAILY 10/23/15 Sennosides [Senna] 8.6 mg PO HS 10/23/15 Anemia: Yes Asthma: Yes Cancer: No Cardiac Disorders: Yes (chest pain, CAD, [place] x3) CVA: Yes (CVA x3, TIA, left sided residual) COPD: Yes CHF: No Dementia: No Diabetes: Yes GI Disorders: Yes (PEPTIC ULCER) Disorders: No HTN: Yes Hypercholesterolemia: Yes HIV: (PT REPORTS SHE IS POITIVE ON HER RECORDS BUT REPORTS SHE IS NEGATIVE) Liver Disease: No Psychiatric Problems: Yes (BIPOLAR, POST TRAMATIC STRESS) Suicide Attempt (Hx): No Seizures: No Thyroid Disease: No - Surgical History Abdominal Surgery: Yes Appendectomy: No Cardiac Surgery: No Cholecystectomy: No Lung Surgery: No Neurologic Surgery: No Orthopedic Surgery: No - Immunization History Immunization Up to Date: No - Psycho/Social/Smoking Cessation Hx Anxiety: No Suicidal Ideation: No Smoking Status: Yes Smoking History: Current every day smoker Have you smoked in the past 12 months: No Number of Cigarettes Smoked Daily: 3 If you are a former smoker, when did you quit?: 09/18/14 Cigars Per Day: 20 'Breaking Loose' booklet given: 10/30/14 Hx Alcohol Use: No Drug/Substance Use Hx: No Substance Use Type: None Hx Substance Use Treatment: Yes Review of Systems - Review of Systems Comments:: 12/18/16 18:59 GENERAL/CONSTITUTIONAL: No fever or chills. No weakness. HEAD, EYES, EARS, NOSE AND THROAT: No change in vision. No ear pain or discharge. No sore throat. CARDIOVASCULAR: No chest pain or shortness of breath RESPIRATORY: No cough, wheezing, or hemoptysis. GASTROINTESTINAL: No nausea, vomiting, diarrhea or constipation. GENITOURINARY: No dysuria, frequency, or change in urination. MUSCULOSKELETAL: +Endorses signficant back pain radiating down her legs SKIN: No rash NEUROLOGIC: No headache, vertigo, loss of consciousness, or change in strength/ sensation. ENDOCRINE: No increased thirst. No abnormal weight change HEMATOLOGIC/LYMPHATIC: No anemia, easy bleeding, or history of blood clots. ALLERGIC/IMMUNOLOGIC: No hives or skin allergy. 12/18/16 19:03 *Physical Exam - Physical Exam Comments: 12/18/16 18:59 GENERAL: Slurred speach and intermittently responsive; at times not able to tell where she is or what her name is HEAD: No signs of trauma, normocephalic, atraumatic EYES: PERRLA, EOMI, sclera anicteric, conjunctiva clear ENT: Auricles normal inspection, hearing grossly normal, nares patent, oropharynx clear without exudates. Moist mucosa NECK: +Pain to palpation at top of spine and down back. Normal ROM, supple, no lymphadenopathy, JVD, or masses LUNGS: No distress, speaks full sentences, clear to auscultation bilaterally HEART: Regular rate and rhythm, normal S1 and S2, no murmurs, rubs or gallops, peripheral pulses normal and equal bilaterally. ABDOMEN: Soft, nontender, normoactive bowel sounds. No guarding, no rebound. No masses EXTREMITIES: Normal inspection, Normal range of motion, no edema. No clubbing or cyanosis. NEUROLOGICAL: Cranial nerves II through XII grossly intact. Normal speech, normal gait, no focal sensorimotor deficits SKIN: Warm, Dry, normal turgor, no rashes or lesions noted. 12/18/16 19:04 ED Treatment Course - LABORATORY CBC & Chemistry Diagram: 12/18/16 18:26 12/18/16 18:26 Medical Decision Making - Medical Decision Making 12/18/16 19:05 Ms. Villela presented to ED for pain control after her home morphine wasn't able to control her pain. During the history taking she had an instance of not knowing where she was or her name and became unresponsive to voice. She retained eyelid reflex and strength in her extremities. Following this she began to answer again and reported continued pain. Ordered xray of thoracic / spine. Ordered UA/CBC/CMP/utox; Utox + for MDMA. Xray of thoracic/spine Head CT all clear of any acute pathology. Discharging to home to resume home medication. 12/18/16 19:07 12/18/16 21:38 12/18/16 21:40 12/18/16 21:44 12/18/16 21:45 *DC/Admit/Observation/Transfer Diagnosis at time of Disposition: Chronic low back pain Qualifiers: Back pain laterality: midline Sciatica presence: with sciatica Sciatica laterality: bilateral sciatica Qualified Code(s): M54.41 - Lumbago with sciatica , right side - Discharge Dispostion Disposition: INTERMEDIATE FACILITY Condition at time of disposition: Stable - Referrals Referrals: Nav Hsu [Primary Care Provider] - - Patient Instructions Printed Discharge Instructions: Managing Chronic Low Back Pain Additional Instructions: Please return if any worsening of pain or new symptoms. - Attestations Physician Attestion: 12/18/16 21:47 I, Dr. Kaden Covarrubias, attest that this document has been prepared under my direction and personally reviewed by me in its entirety. I further attest, that it accurately reflects all work, treatment, procedures and medical decision -making performed by me.
--- NOTE | 2016-12-18 16:47 | PDOC ---
Attending Attestation - Resident Resident Name: Russell Galindo - ED Attending Attestation I have performed the following: I have examined & evaluated the patient, The case was reviewed & discussed with the resident, I agree w/resident's findings & plan, Exceptions are as noted - HPI HPI: 12/18/16 17:52 51y F hx of dm, cad, htn, hl, cva with residual L sided waekness, copd, tessy, chronic back pain presents with back pain. Pt sent b[facility] for wrsening chronic back pain no associated numbness/tingling/weakness, urinary or bowel incontinence. Duyring HPI pt had an episode of nonresponsiveness, the pts eyes were open at the time, pupils were reactive approx 4mm and reactive to light, she maintained tone in her body as she was sitting up, her arms were limp but when i picked itup and dropped it, there was tone as slowed down the fall of her arm. She also flinched at my hand when i attempted startle her. After about 1 min, she started looking around. There was no seizure like activity, tongue biting,lose of postural tone. pt was able to get off her bed and was ambulatory afterwards on her own w/o assistance will obtain ekg and placed on monitor to r/o arrhtmia incosistent with CVA, but will obtain a CT head will obtain basic blood work and ua to r/o metabolic derangement, anemia, occult infection dispo pending 12/18/16 19:09 pts tox screen + for MDMA, suspect the pts episode may have been secondary to intoxication pt signed out to dr garcia if everything neg and pt at baseline, consider d/c [facility] to [facility] - Physicial Exam PE: 12/19/16 08:22 see above - Medical Decision Making 12/19/16 08:22 see above Heart Score/ECG Review - ECG Impressions Comment:: 12/18/16 19:14 Twelve-lead EKG was performed and reviewed by me. There is normal sinus rhythm with a normal rate. Rate of [address] changes suggestive of acute ischemia.
[2016-12-18 16:52] VITALS: BP 117/65; PULSE 80; TEMP 97; BMI 38.4
[2016-12-18 18:16] LABS: URINE MARIJUANA THC NEGATIVE ng/ml (CUTOFF=50)
[2016-12-18 18:42] LABS: MCH 26.8 pg (25.7-33.7); MEAN CELL VOLUME 81.1 fl (80-96); PLATELET COUNT 170 K/MM3 (134-434); RDW 16.3 % (11.6-15.6); WHITE BLOOD COUNT 9.6 K/mm3 (4.0-10.0)
[2016-12-18 19:06] LABS: ALBUMIN 3.3 g/dl (3.4-5.0); ALK PHOS 105 U/L (45-117); ANION GAP 8 (8-16); BILIRUBIN,TOTAL 0.1 mg/dL (0.2-1.0); CALCIUM 9.1 mg/dL (8.5-10.1); CO2 30 mmol/L (21-32); CREATININE 1.3 mg/dL (0.55-1.02); GLUCOSE,RANDOM 89 mg/dL (74-106); SGOT/AST 17 U/L (15-37); SGPT/ALT 15 U/L (12-78); TOT PROT 7.5 g/dl (6.4-8.2)
--- NOTE | 2016-12-19 14:51 | EKG ---
Test Reason : Blood Pressure : / mmHG Vent. Rate : 082 BPM Atrial Rate : 082 BPM P-R Int : 126 ms QRS Dur : 080 ms QT Int : 388 ms P-R-T Axes : 019 004 015 degrees QTc Int : 453 ms POOR DATA QUALITY, INTERPRETATION MAY BE ADVERSELY AFFECTED NORMAL SINUS RHYTHM CANNOT RULE OUT ANTERIOR INFARCT , AGE UNDETERMINED ABNORMAL ECG WHEN COMPARED WITH ECG OF 09-NOV-2016 01:25, NONSPECIFIC T WAVE ABNORMALITY NO LONGER EVIDENT IN ANTERIOR LEADS Confirmed by ALEXANDER DANIELS, ANDRÉS ([id number]) on 12/19/2016 2:50:59 PM Referred By: Confirmed By:ANDRÉS MUNOZ MD
== END 2016-12-18 23:50 ==
LOC: JER 16:22
DX: M54.41 Lumbago with sciatica, right side (principal); J45.909 Unspecified asthma, uncomplicated; J44.9 Chronic obstructive pulmonary disease, unspecified; I25.2 Old myocardial infarction; I10 Essential (primary) hypertension; F17.210 Nicotine dependence, cigarettes, uncomplicated; E11.9 Type 2 diabetes mellitus without complications; Z79.4 Long term (current) use of insulin; F43.10 Post-traumatic stress disorder, unspecified; Z31.9 Encounter for procreative management, unspecified; Z86.73 Personal history of transient ischemic attack (TIA), and cerebral infarction without residual deficits
CPT/HCPCS: 70450-TC; 72070-TC; 72100-TC; 80053; 80307; 85027; 93005; 93010; 99282-25

== ENCOUNTER 2016-12-31 11:45 | Emergency (ER) | payer OTHER ==
[2016-12-31 12:05] VITALS: TEMP 98.4; BMI 39.2
--- NOTE | 2016-12-31 12:30 | PDOC ---
History of Present Illness - General History Source: Patient Exam Limitations: No Limitations <Christina Yoder - Last Filed: 12/31/16 13:32> <Boom Vega - Last Filed: 12/31/16 19:45> - General Chief Complaint: Weakness Stated Complaint: PAIN Time Seen by Provider: 12/31/16 12:22 - History of Present Illness Initial Comments: 12/31/16 13:33 The patient is a 51 year old female, with a significant past medical history of dm, cad, htn, hl, cva with residual L sided weakness, copd, tessy, chronic back pain, who presents to the emergency department with chest pain and generalized weakness for the past 2 days. The patient reports midsternal non radiating chest pain. Patients chest pain is relieved with sublingual nitroglycerin. Also reports mild diffuse lower abdominal pain with associated nausea, vomiting and sweats.Patient presents to the ED for further evaluation. Note: Patient had recent neck surgery She denies headache or dizziness. She denies fever, chills, diarrhea or constipation. She denies dysuria, frequency, urgency or hematuria. (Christina Yoder) Past History <Christina Yoder - Last Filed: 12/31/16 13:32> - Past Medical History Anemia: Yes Asthma: Yes Cancer: No Cardiac Disorders: Yes (chest pain, CAD, [place] x3) CVA: Yes (CVA x3, TIA, left sided residual) COPD: Yes CHF: No Dementia: No Diabetes: Yes GI Disorders: Yes (PEPTIC ULCER) Disorders: No HTN: Yes Hypercholesterolemia: Yes HIV: (PT REPORTS SHE IS POITIVE ON HER RECORDS BUT REPORTS SHE IS NEGATIVE) Liver Disease: No Psychiatric Problems: Yes (BIPOLAR, POST TRAMATIC STRESS) Suicide Attempt (Hx): No Seizures: No Thyroid Disease: No - Surgical History Abdominal Surgery: Yes Appendectomy: No Cardiac Surgery: No Cholecystectomy: No Lung Surgery: No Neurologic Surgery: No Orthopedic Surgery: No - Immunization History Immunization Up to Date: No - Psycho/Social/Smoking Cessation Hx Anxiety: No Suicidal Ideation: No Smoking Status: Yes Smoking History: Current every day smoker Have you smoked in the past 12 months: Yes Number of Cigarettes Smoked Daily: 4 If you are a former smoker, when did you quit?: 09/18/14 Cigars Per Day: 20 Information on smoking cessation initiated: Yes 'Breaking Loose' booklet given: 10/30/14 Hx Alcohol Use: No Drug/Substance Use Hx: No Substance Use Type: None Hx Substance Use Treatment: Yes <Boom Vega - Last Filed: 12/31/16 19:45> - Past Medical History Allergies/Adverse Reactions: Allergies Allergy/AdvReac Type Severity Reaction Status Date / Time hydromorphone HCl Allergy Intermediate Itching Verified 12/31/16 11:59 [From Dilaudid] amoxicillin [Amoxicillin] Allergy Verified 12/31/16 11:59 ampicillin Allergy Verified 12/31/16 11:59 aspirin Allergy Verified 12/31/16 11:59 cranberry Allergy Verified 12/31/16 11:59 doxycycline Allergy Verified 12/31/16 11:59 Fish Containing Products Allergy Difficulty Verified 12/31/16 11:59 Breathing haloperidol [From Haldol] Allergy Verified 12/31/16 11:59 haloperidol lactate Allergy Verified 12/31/16 11:59 [From Haldol] ibuprofen [From Motrin] Allergy Verified 12/31/16 11:59 ketorolac tromethamine Allergy Verified 12/31/16 11:59 [From Toradol] levofloxacin [From Levaquin] Allergy Verified 12/31/16 11:59 lidocaine [From Lidoderm] Allergy Verified 12/31/16 11:59 milk Allergy Difficulty Verified 12/31/16 11:59 Breathing oxycodone HCl [From Percocet] Allergy Verified 12/31/16 11:59 Penicillins Allergy Verified 12/31/16 11:59 sulfamethoxazole Allergy Verified 12/31/16 11:59 [From Bactrim] tomato [Tomato] Allergy Hives Verified 12/31/16 11:59 trimethoprim [From Bactrim] Allergy Verified 12/31/16 11:59 warfarin sodium Allergy Verified 12/31/16 11:59 [From Coumadin] Gravy Allergy Unknown Uncoded 12/31/16 11:59 Cranberry/Cranberry juice Allergy Uncoded 12/31/16 11:59 Home Medications: Ambulatory Orders Docusate Sodium [Colace -] 100 mg PO DAILY #0 04/12/14 Metformin HCl [Glucophage] 1,000 mg PO BID 05/12/14 Simvastatin [Zocor -] 40 mg PO HS 05/12/14 Ferrous Sulfate [Feosol] 325 mg PO DAILY 09/18/14 Albuterol 0.083% Nebulizer Laurie [Ventolin 0.083% Nebulizer Soln -] 1 neb NEB Q6H PRN 09/27/14 Clonazepam [Klonopin] 1 mg PO BID 10/23/15 Divalproex [Depakote -] 500 mg PO BID 10/23/15 Levothyroxine Sodium [Unithroid] 50 mcg PO DAILY 10/23/15 Morphine *Immediate Release* [Msir -] 30 mg PO Q6H PRN 10/23/15 Nitroglycerin Sublingual [Nitrostat -] 0.6 mg SL BID PRN 10/23/15 Pantoprazole Sodium [Protonix -] 40 mg PO DAILY 10/23/15 Polyethylene Glycol 3350 [Miralax (For Daily Use) -] 17 gm PO DAILY 10/23/15 Quetiapine Fumarate [Seroquel] 200 tab PO HS 10/23/15 Sennosides [Senna] 8.6 mg PO HS 10/23/15 Apixaban [Eliquis] 5 mg PO BID 12/31/16 Benztropine Mesylate [Cogentin -] 0.5 mg PO BID 12/31/16 Budesonide/Formeterol Fumarate [SYMBICORT 80/4.5mcg -] 1 inh PO BID 12/31/16 Bupropion HCl [Wellbutrin Xl -] 150 mg PO BID 12/31/16 Divalproex [Depakote -] 250 mg PO HS 12/31/16 Fluoxetine HCl 20 mg PO BID 12/31/16 Furosemide [Lasix] 40 mg PO DAILY 12/31/16 Gabapentin [Neurontin] 600 mg PO TID 12/31/16 Metoprolol Succinate [Toprol Xl -] 25 mg PO BID 12/31/16 Nitrofurantoin Monohyd/M-Cryst [Macrobid -] 100 mg PO BID #10 capsule 12/31/16 Cardiac Specific PMH - Complaint Specific PMHX Pacemaker: No <Boom Vega - Last Filed: 12/31/16 19:45> Review of Systems - Review of Systems Able to Perform ROS?: Yes <Christina Yoder - Last Filed: 12/31/16 13:32> <Boom Vega - Last Filed: 12/31/16 19:45> - Review of Systems Comments:: 12/31/16 13:33 CONSTITUTIONAL: No reported: Fever, Chills, Diaphoresis, Generalized Weakness, Malaise, Loss of Appetite HEENT: No reported: Rhinorrhea, Nasal Congestion, Throat Pain, Throat Swelling, Difficulty Swallowing, Mouth Swelling, Ear Pain, Eye Pain, Visual Changes CARDIOVASCULAR: Chest pain. No reported: Syncope, Palpitations, Irregular Heart Rate, Lightheadedness, Peripheral Edema RESPIRATORY: No reported: Cough, Shortness of Breath, SOB with Exertion, Orthopnea, Wheezing , Stridor, Hemoptysis GASTROINTESTINAL:Abdominal pain, Nausea, Vomiting No reported: Abdominal Distension, Diarrhea, Constipation, Melena, Hematochezia GENITOURINARY: No reported: Dysuria, Frequency, Urgency, Hesitancy, Flank Pain, Genital Pain MUSCULOSKELETAL: No reported: Myalgia, Arthralgia, Joint Swelling, Back pain, Neck Pain SKIN: No reported: Rash, Itching, Pallor HEMATOLOGIC/IMMUNOLOGIC: No reported: Easy Bleeding, Easy Bruising, Lymphadenopathy, Frequent infections ENDOCRINE: No reported: Unexplained Weight Gain, Unexplained Weight Loss, Heat Intolerance , Cold Intolerance NEUROLOGIC: No reported: Headache, Focal Weakness, Paresthesias, Vertigo, Lightheadedness, Unsteady Gait, Seizure, Mental Status Changes, Incontinence PSYCHIATRIC: No reported: Anxiety, Depression (Christina Yoder) *Physical Exam <Christina Yoder - Last Filed: 12/31/16 13:32> <SilviaBoom - Last Filed: 12/31/16 19:45> - Vital Signs Last Vital Signs Temp Pulse Resp BP Pulse Ox 98.4 F 70 22 122/70 96 12/31/16 11:59 12/31/16 15:36 12/31/16 15:36 12/31/16 15:36 12/31/16 15:36 - Physical Exam Comments: 12/31/16 13:33 GENERAL: The patient is awake, alert, and fully oriented, Nontoxic - in no acute distress. HEAD: Normocephalic, atraumatic. EYES: extraocular movements intact, sclera anicteric, conjunctiva clear. ENT: Normal voice, Moist mucous membranes. NECK: Normal range of motion, No JVD LUNGS: Breath sounds equal, clear to auscultation bilaterally. No wheezes, no rhonchi, no rales. HEART: Regular rate and rhythm, normal S1 and S2 without murmur, rub or gallop. ABDOMEN: + Mild epigastric tenderness. Soft, nontender, normoactive bowel sounds. No guarding, no rebound. No masses. No CVA tenderness EXTREMITIES: +Trace edema. Normal range of motion, no edema. No clubbing or cyanosis. No cords, erythema, or tenderness. NEUROLOGICAL: No facial asymmetry, Normal speech, normal gait. PSYCH: Normal mood, normal affect. SKIN: Warm, Dry, normal turgor. (Christina Yoder) Heart Score/ECG Review <Paresh,Christina - Last Filed: 12/31/16 13:32> <Boom Vega - Last Filed: 12/31/16 19:45> - ECG Impressions Comment:: 12/31/16 18:56 Twelve-lead EKG was performed and reviewed by me. There is normal sinus rhythm with a normal rate. The axis is normal. The intervals are normal. There is normal R wave progression Nonspecific T wave (Boom Vega) ED Treatment Course - LABORATORY CBC & Chemistry Diagram: 12/31/16 12:07 12/31/16 12:06 <Christina Yoder - Last Filed: 12/31/16 13:32> - LABORATORY CBC & Chemistry Diagram: 12/31/16 12:07 12/31/16 12:06 <Boom Vega - Last Filed: 12/31/16 19:45> - ADDITIONAL ORDERS Additional order review: Laboratory Results 12/31/16 12/31/16 12/31/16 17:20 12:30 12:07 INR Sodium Potassium Chloride Carbon Dioxide Anion Gap BUN Creatinine Creat Clearance w eGFR Random Glucose Calcium Magnesium Total Bilirubin AST ALT Alkaline Phosphatase Creatine Kinase 159 Creatine Kinase Index 1.2 CK-MB (CK-2) 1.983 Troponin I < 0.02 Total Protein Albumin Lipase 105 Urine Color Ltyellow Urine Appearance Clear Urine pH 6.0 Urine Protein Negative Urine Glucose (UA) Negative Urine Ketones Negative Urine Blood Negative Urine Nitrite Positive Urine Bilirubin Negative Urine Urobilinogen Negative Ur Leukocyte Esterase 2+ H Urine RBC 1 Urine WBC 25 Ur Epithelial Cells Rare Urine Bacteria Many Urine Mucus Rare 12/31/16 12/31/16 12:07 12:06 INR 1.15 H Sodium 140 Potassium 4.2 Chloride 103 Carbon Dioxide 30 Anion Gap 7 L BUN 15 Creatinine 1.0 D Creat Clearance w eGFR 58.69 Random Glucose 74 Calcium 8.7 Magnesium 1.7 L Total Bilirubin 0.3 D AST 18 ALT 18 Alkaline Phosphatase 103 Creatine Kinase 203 H Creatine Kinase Index 1.3 CK-MB (CK-2) 2.794 Troponin I < 0.02 Total Protein 6.9 Albumin 3.3 L Lipase Urine Color Urine Appearance Urine pH Urine Protein Urine Glucose (UA) Urine Ketones Urine Blood Urine Nitrite Urine Bilirubin Urine Urobilinogen Ur Leukocyte Esterase Urine RBC Urine WBC Ur Epithelial Cells Urine Bacteria Urine Mucus 12/31/16 12:07 RBC 4.19 MCV 79.5 L MCHC 34.4 RDW 16.0 H MPV 10.4 Neutrophils % 64.6 Lymphocytes % 26.3 Monocytes % 5.9 Eosinophils % 2.1 Basophils % 1.1 - RADIOLOGY Radiology Studies Ordered: Category Date Time Status CHEST X-RAY PORTABLE* [RAD] Stat Radiology 12/31/16 12:05 Completed - Medications Given in the ED: ED Medications Discontinued Medications Generic Name Dose Route Start Last Admin Trade Name Freq PRN Reason Stop Dose Admin Al Hydroxide/Mg Hydroxide 30 ml 12/31/16 12:32 12/31/16 13:11 Mylanta Suspension - PO 12/31/16 12:33 Not Given ONCE ONE Famotidine/Sodium Chloride 50 mls @ 100 mls/hr 12/31/16 12:32 12/31/16 13:11 Pepcid 20 Mg Premixed Ivpb - IVPB 12/31/16 13:01 100 mls/hr ONCE ONE Administration Medical Decision Making <Christina Yoder - Last Filed: 12/31/16 13:32> <Boom Vega - Last Filed: 12/31/16 19:45> - Medical Decision Making 12/31/16 12:29 51y F with extensive medical history including dm, htn, cad, hl, cva with residula L sided weakness, copd, tessy, chronic back pain presents with generalized weakness, as well as mild chest pain and lower abdominal pain x 1 day. pt appears well in no distress, exam fairly unremarkable with mild diffuse lower ab tenderness. considder acs, gastritis, pancreatitis, occult uti, pna, will obtain cbc, cmp, lipase, ua, ekg, cxr gentle fluids, pepcid/malox, zofran will reasess A portion of this note was documented by scribe services under my direction. I have reviewed the details of the note, within reason, and agree with the documentation with the following case summary and management plan written by me 12/31/16 15:24 labs reviewed noted for +uti trop neg x 1 will obtain another trop at 4 hrs pt give macrobid 12/31/16 19:05 trop neg x 2 will give macrobid and have pt fu with pmd return precautions were idscussed I discussed the physical exam findings, ancillary test results and final diagnoses with the patient. I answered all of the patient's questions. The patient was satisfied with the care received and felt comfortable with the discharge plan and treatment plan. The patient will call their primary care physician within 24 hours to arrange follow-up and will return to the Emergency Department with any new, persistent or worsening symptoms. (Boom Vega) *DC/Admit/Observation/Transfer <Christina Yoder - Last Filed: 12/31/16 13:32> - Discharge Dispostion Admit: No <Boom Vega - Last Filed: 12/31/16 19:45> Diagnosis at time of Disposition: UTI (urinary tract infection) Qualifiers: Urinary tract infection type: acute cystitis Hematuria presence: with hematuria Qualified Code(s): N30.01 - Acute cystitis with hematuria Chest pain Qualifiers: Chest pain type: unspecified Qualified Code(s): R07.9 - Chest pain, unspecified - Discharge Dispostion Disposition: HOME Condition at time of disposition: Improved - Prescriptions Prescriptions: Nitrofurantoin Monohyd/M-Cryst [Macrobid -] 100 mg PO BID #10 capsule - Referrals Referrals: Fernando Serrano [Primary Care Provider] - - Patient Instructions Printed Discharge Instructions: DI for Urinary Tract Infection (UTI) Additional Instructions: Return to the emergency department immediately with ANY new, persistent or worsening symptoms including fevers, back pain, chills, chest pain, persistent vomiting or any other concerns. Take the antibiotics as prescribed You MUST call and follow up with your doctor tomorrow for further evaluation of your symptoms. Results were discussed with you. Please make sure your doctor reviews the results of your emergency evaluation. Print Language: BANGLADESHI - Attestations Scribe Attestion: 12/31/16 13:33 Documentation prepared by Christina Yoder, acting as hospital medical assistant for Boom Vega MD (Christina Yoder)
[2016-12-31] MEDS ORDERED: FAMOTIDINE 20 MG/50 ML IVPB 50 ML IVPB ONE (12:32)
[2016-12-31] MEDS ORDERED: MAG HYDROX/AL HYDROX/SIMETH 355 ML ORAL.SUSP PO ONE (12:32)
[2016-12-31 13:06] LABS: BASOPHIL 1.1 % (0-2.0); EOSINOPHIL 2.1 % (0-4.5); MCH 27.3 pg (25.7-33.7); MCHC 34.4 g/dl (32.0-36.0); MEAN CELL VOLUME 79.5 fl (80-96); MEAN PLT VOLUME 10.4 fl (7.5-11.1); NEUTROPHILS 64.6 % (42.8-82.8); PLATELET COUNT 184 K/MM3 (134-434); WHITE BLOOD COUNT 10.7 K/mm3 (4.0-10.0)
[2016-12-31 13:12] LABS: URINE APPEARANCE CLEAR; URINE BILIRUBIN NEGATIVE (NEGATIVE); URINE BLOOD NEGATIVE (NEGATIVE); URINE COLOR LTYELLOW; URINE GLUCOSE (UA) NEGATIVE (NEGATIVE); URINE KETONE NEGATIVE (NEGATIVE); URINE NITRITE POSITIVE (NEGATIVE); URINE PROTEIN NEGATIVE (NEGATIVE); URINE UROBILINOGEN NEGATIVE mg/dL (0.2-1.0)
[2016-12-31 13:17] LABS: URINE LEUK ESTERASE 2+ (NEGATIVE)
[2016-12-31 13:25] LABS: URINE BACTERIA MANY /hpf (NONE SEEN); URINE MUCUS RARE; URINE RBC 1 /hpf (0-3); URINE WBC 25 /hpf (3-5)
[2016-12-31 13:31] LABS: INR 1.15 (0.82-1.09); PROTHROMBIN TIME (PATIENT) 12.7 SEC (9.98-11.88)
[2016-12-31 13:31] LABS: ALBUMIN 3.3 g/dl (3.4-5.0); ANION GAP 7 (8-16); BILIRUBIN,TOTAL 0.3 mg/dL (0.2-1.0); CALCIUM 8.7 mg/dL (8.5-10.1); CO2 30 mmol/L (21-32); GLUCOSE,RANDOM 74 mg/dL (74-106); SGPT/ALT 18 U/L (12-78); TOT PROT 6.9 g/dl (6.4-8.2)
[2016-12-31 13:33] LABS: ALK PHOS 103 U/L (45-117); CPK 203 IU/L (26-192); TROPONIN I < 0.02 ng/ml (0.00-0.05)
[2016-12-31 13:35] LABS: MAGNESIUM 1.7 mg/dL (1.8-2.4); SGOT/AST 18 U/L (15-37)
[2016-12-31] MEDS ORDERED: NITROFURANTOIN MACROCRYSTAL 50 MG CAPSULE (FP) PO SCH (14:30)
--- NOTE | 2016-12-31 17:45 | EKG ---
Test Reason : Blood Pressure : / mmHG Vent. Rate : 068 BPM Atrial Rate : 068 BPM P-R Int : 146 ms QRS Dur : 094 ms QT Int : 430 ms P-R-T Axes : 028 009 008 degrees QTc Int : 457 ms NORMAL SINUS RHYTHM NORMAL ECG WHEN COMPARED WITH ECG OF 18-DEC-2016 18:04, NO SIGNIFICANT CHANGE WAS FOUND Confirmed by NELI MARIN MD ([id number]) on 12/31/2016 5:44:49 PM Referred By: Confirmed By:NELI MARIN MD
[2016-12-31 18:10] LABS: CPK 159 IU/L (26-192)
[2016-12-31 18:11] LABS: TROPONIN I < 0.02 ng/ml (0.00-0.05)
[2016-12-31 20:38] VITALS: BP 112/53; PULSE 67
--- NOTE | 2017-01-02 12:39 | PDOC ---
Patient Follow-up (Call Back) - Post ED Follow - Up Condition at time of discharge: Improved Disposition at time of original discharge: HOME Reason for Call Back: Abnwl. Microbiology (Patient with positive Klebsiella in urine, was prescribed Macrobid however resistant. Spoke to med was patient's pharmacy and double checked her list of allergies. As per [facility] pharmacist at [place] is patient is allergic to aspirin, doxycycline, Toradol, Motrin, Levaquin , hydromorphone. There is no penicillin allergy noted as per their records. We' ll prescribe Keflex 500 mg by mouth twice a day for 10 days to monitor patient for rash. [facility], [facility] made aware. [phone] extension [phone].)
== END 2016-12-31 20:38 | disposition home or self-care (01) ==
LOC: JER 11:45
PROC: 3E033GC Introduction of Other Therapeutic Substance into Peripheral Vein, Percutaneous Approach (ICD-10-PCS; principal; 2016-12-31)
DX: N30.01 Acute cystitis with hematuria (principal); R07.9 Chest pain, unspecified; E11.9 Type 2 diabetes mellitus without complications; Z79.84 Long term (current) use of oral hypoglycemic drugs; I10 Essential (primary) hypertension; J44.9 Chronic obstructive pulmonary disease, unspecified; G47.33 Obstructive sleep apnea (adult) (pediatric); I69.854 Hemiplegia and hemiparesis following other cerebrovascular disease affecting left non-dominant side
CPT/HCPCS: 36415; 71010-TC; 80053; 81003; 81015; 83690; 83735; 84484; 85025; 85610; 87086; 87186; 93005; 93010; 96365; 99285-25

== ENCOUNTER 2017-01-19 19:49 | Emergency (ER) | payer OTHER ==
--- NOTE | 2017-01-19 21:06 | PDOC ---
History of Present Illness - General Chief Complaint: Weakness Stated Complaint: DIZZINESS, WEAKNESS Time Seen by Provider: 01/19/17 20:52 - History of Present Illness Initial Comments: 01/19/17 21:04 CHIEF COMPLAINT: HISTORY OF PRESENT ILLNESS: 51 yo F with hx of HTN, HLD, CVA w/ left hemiparesis , COPD, Asthma, NIDDM, CAD, multiple food and drug allergies presents to ED via EMS from [facility] with complaints of weakness. No recent travel or sick contacts. PAST MEDICAL HISTORY: Denies past medical history FAMILY HISTORY: Denies SOCIAL HISTORY: Lives at home with ____. Occupation: . Denies tobacco, alcohol, illicit drug use. SURGICAL HISTORY: Denies ALLERGIES: No known drug allergies REVIEW OF SYSTEMS General/Constitutional: Denies fever or chills. Denies weakness, weight change. HEENT: Denies change in vision. Denies ear pain or discharge. Denies sore throat. Cardiovascular: Denies chest pain or shortness of breath. Respiratory: Denies cough, wheezing, or hemoptysis. Gastrointestinal: Denies nausea, vomiting, diarrhea or constipation. Denies rectal bleeding. Genitourinary: Denies dysuria, frequency, or change in urination. Musculoskeletal: Denies joint or muscle swelling or pain. Denies neck or back pain. Skin and breasts: Denies rash or easy bruising. Neurologic: Denies headache, vertigo, loss of consciousness, or loss of sensation. Psychiatric: Denies depression or anxiety. Endocrine: Denies increased thirst. Denies abnormal weight change. Hematologic/Lymphatic: Denies anemia, easy bleeding, or history of blood clots. Allergic/Immunologic: Denies hives or skin allergy. Denies latex allergy. PHYSICAL EXAM General Appearance: Well-appearing, appropriately dressed. No apparent distress , no intoxication. HEENT: EOMI, PERRLA, normal ENT inspection, normal voice, TMs normal, pharynx normal. No conjunctival pallor. No photophobia, scleral icterus. Neck: Supple. Trachea midline. No tenderness, rigidity, carotid bruit, stridor , lymphadenopathy, or thyromegaly. Respiratory/Chest: Lungs CTAB. No shortness of breath, chest tenderness, respiratory distress, accessory muscle use. No crackles, rales, rhonchi, stridor , wheezing, dullness Cardiovascular: RRR. S1, S2. No JVD, murmur, bradycardia, tachycardia. Vascular Pulses: Dorsalis-Pedis (R): 2+, Dorsalis-Pedis (L): 2+ Gastrointestinal/Abdominal: Normal bowel sounds. Abdomen soft, non-distended. No tenderness or rebound tenderness. No organomegaly, pulsatile mass, guarding , hernia, hepatomegaly, splenomegaly. Lymphatic: No adenopathy, tenderness. Musculoskeletal/Extremities: Normal inspection. FROM of all extremities, normal capillary refill. Pelvis Stable. No CVA tenderness. No tenderness to extremities, pedal edema, swelling, erythema or deformity. Integumentary: Appropriate color, dry, warm. No cyanosis, erythema, jaundice or rash Neurologic: veterinarian assistant II-XII intact. Fully oriented, alert. Appropriate mood/affect. Motor strength 5/5. No appreciable EOM palsy, facial droop or sensory deficit. Past History - Past Medical History Allergies/Adverse Reactions: Allergies Allergy/AdvReac Type Severity Reaction Status Date / Time hydromorphone HCl Allergy Intermediate Itching Verified 12/31/16 11:59 [From Dilaudid] amoxicillin [Amoxicillin] Allergy Verified 12/31/16 11:59 ampicillin Allergy Verified 12/31/16 11:59 aspirin Allergy Verified 12/31/16 11:59 cranberry Allergy Verified 12/31/16 11:59 doxycycline Allergy Verified 12/31/16 11:59 Fish Containing Products Allergy Difficulty Verified 12/31/16 11:59 Breathing haloperidol [From Haldol] Allergy Verified 12/31/16 11:59 haloperidol lactate Allergy Verified 12/31/16 11:59 [From Haldol] ibuprofen [From Motrin] Allergy Verified 12/31/16 11:59 ketorolac tromethamine Allergy Verified 12/31/16 11:59 [From Toradol] levofloxacin [From Levaquin] Allergy Verified 12/31/16 11:59 lidocaine [From Lidoderm] Allergy Verified 12/31/16 11:59 milk Allergy Difficulty Verified 12/31/16 11:59 Breathing oxycodone HCl [From Percocet] Allergy Verified 12/31/16 11:59 Penicillins Allergy Verified 12/31/16 11:59 sulfamethoxazole Allergy Verified 12/31/16 11:59 [From Bactrim] tomato [Tomato] Allergy Hives Verified 12/31/16 11:59 trimethoprim [From Bactrim] Allergy Verified 12/31/16 11:59 warfarin sodium Allergy Verified 12/31/16 11:59 [From Coumadin] Gravy Allergy Unknown Uncoded 12/31/16 11:59 Cranberry/Cranberry juice Allergy Uncoded 12/31/16 11:59 Home Medications: Ambulatory Orders Docusate Sodium [Colace -] 100 mg PO DAILY #0 04/12/14 Metformin HCl [Glucophage] 1,000 mg PO BID 05/12/14 Simvastatin [Zocor -] 40 mg PO HS 05/12/14 Ferrous Sulfate [Feosol] 325 mg PO DAILY 09/18/14 Albuterol 0.083% Nebulizer Laurie [Ventolin 0.083% Nebulizer Soln -] 1 neb NEB Q6H PRN 09/27/14 Clonazepam [Klonopin] 1 mg PO BID 10/23/15 Divalproex [Depakote -] 500 mg PO BID 10/23/15 Levothyroxine Sodium [Unithroid] 50 mcg PO DAILY 10/23/15 Morphine *Immediate Release* [Msir -] 30 mg PO Q6H PRN 10/23/15 Nitroglycerin Sublingual [Nitrostat -] 0.6 mg SL BID PRN 10/23/15 Pantoprazole Sodium [Protonix -] 40 mg PO DAILY 10/23/15 Polyethylene Glycol 3350 [Miralax (For Daily Use) -] 17 gm PO DAILY 10/23/15 Quetiapine Fumarate [Seroquel] 200 tab PO HS 10/23/15 Sennosides [Senna] 8.6 mg PO HS 10/23/15 Apixaban [Eliquis] 5 mg PO BID 12/31/16 Benztropine Mesylate [Cogentin -] 0.5 mg PO BID 12/31/16 Budesonide/Formeterol Fumarate [SYMBICORT 80/4.5mcg -] 1 inh PO BID 12/31/16 Bupropion HCl [Wellbutrin Xl -] 150 mg PO BID 12/31/16 Divalproex [Depakote -] 250 mg PO HS 12/31/16 Fluoxetine HCl 20 mg PO BID 12/31/16 Furosemide [Lasix] 40 mg PO DAILY 07/31/17 Gabapentin [Neurontin] 600 mg PO TID 12/31/16 Metoprolol Succinate [Toprol Xl -] 25 mg PO BID 12/31/16 Nitrofurantoin Monohyd/M-Cryst [Macrobid -] 100 mg PO BID #10 capsule 01/01/17 Cephalexin [Keflex] 500 mg PO BID #20 capsule 01/02/17 Anemia: Yes Asthma: Yes Cancer: No Cardiac Disorders: Yes (chest pain, CAD, [place] x3) CVA: Yes (CVA x3, TIA, left sided residual) COPD: Yes CHF: No Dementia: No Diabetes: Yes GI Disorders: Yes (PEPTIC ULCER) Disorders: No HTN: Yes Hypercholesterolemia: Yes HIV: (PT REPORTS SHE IS POITIVE ON HER RECORDS BUT REPORTS SHE IS NEGATIVE) Liver Disease: No Psychiatric Problems: Yes (BIPOLAR, POST TRAMATIC STRESS) Suicide Attempt (Hx): No Seizures: No Thyroid Disease: No - Surgical History Abdominal Surgery: Yes Appendectomy: No Cardiac Surgery: No Cholecystectomy: No Lung Surgery: No Neurologic Surgery: No Orthopedic Surgery: No - Immunization History Immunization Up to Date: No - Psycho/Social/Smoking Cessation Hx Anxiety: No Suicidal Ideation: No Smoking Status: Yes Smoking History: Current every day smoker Have you smoked in the past 12 months: No Number of Cigarettes Smoked Daily: 3 If you are a former smoker, when did you quit?: 09/18/14 Cigars Per Day: 20 'Breaking Loose' booklet given: 10/30/14 Hx Alcohol Use: No Drug/Substance Use Hx: No Substance Use Type: None Hx Substance Use Treatment: Yes
[2017-01-19] MEDS ORDERED: SODIUM CHLORIDE 1,000 ML IV SCH (21:15)
[2017-01-19 21:32] LABS: BASOPHIL 1.1 % (0-2.0); EOSINOPHIL 1.5 % (0-4.5); MEAN CELL VOLUME 79.9 fl (80-96); MEAN PLT VOLUME 10.6 fl (7.5-11.1); PLATELET COUNT 194 K/MM3 (134-434); RDW 16.2 % (11.6-15.6)
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
[2017-01-19 21:52] LABS: INR 1.23 (0.82-1.09); PROTHROMBIN TIME (PATIENT) 13.6 SEC (9.98-11.88)
[2017-01-19 22:00] LABS: ALBUMIN 3.8 g/dl (3.4-5.0); ANION GAP 10 (8-16); BILIRUBIN,TOTAL 0.3 mg/dL (0.2-1.0); CALCIUM 9.1 mg/dL (8.5-10.1); CO2 26 mmol/L (21-32); CREATININE 1.4 mg/dL (0.55-1.02); GLUCOSE,RANDOM 78 mg/dL (74-106); SGOT/AST 13 U/L (15-37); SGPT/ALT 19 U/L (12-78)
[2017-01-19 22:03] LABS: ALK PHOS 117 U/L (45-117); CPK 137 IU/L (26-192); TROPONIN I < 0.02 ng/ml (0.00-0.05)
[2017-01-19 22:04] VITALS: TEMP 98.1; BMI 31.0
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
[2017-01-19] MEDS ORDERED: ACETAMINOPHEN 325 MG TABLET (FP) PO ONE (23:14)
[2017-01-19] MEDS ORDERED: ONDANSETRON 4 MG/2 ML VIAL IVPUSH ONE (23:15)
[2017-01-19 23:28] LABS: URINE APPEARANCE SLCLOUDY; URINE BILIRUBIN NEGATIVE (NEGATIVE); URINE BLOOD NEGATIVE (NEGATIVE); URINE COLOR YELLOW; URINE GLUCOSE (UA) NEGATIVE (NEGATIVE); URINE KETONE NEGATIVE (NEGATIVE); URINE NITRITE NEGATIVE (NEGATIVE); URINE PROTEIN NEGATIVE (NEGATIVE); URINE UROBILINOGEN NEGATIVE mg/dL (0.2-1.0)
[2017-01-19 23:35] LABS: URINE LEUK ESTERASE 2+ (NEGATIVE)
[2017-01-19 23:51] LABS: URINE BACTERIA RARE /hpf (NONE SEEN); URINE HYALINE CAST 5 /lpf; URINE MUCUS RARE; URINE RBC 4 /hpf (0-3); URINE WBC 5 /hpf (3-5)
[2017-01-20 00:08] LABS: URINE MARIJUANA THC NEGATIVE ng/ml (CUTOFF=50)
[2017-01-20 03:29] VITALS: BP 100/51; PULSE 71
--- NOTE | 2017-01-20 12:50 | EKG ---
Test Reason : Blood Pressure : / mmHG Vent. Rate : 087 BPM Atrial Rate : 087 BPM P-R Int : 148 ms QRS Dur : 096 ms QT Int : 394 ms P-R-T Axes : 035 004 029 degrees QTc Int : 474 ms NORMAL SINUS RHYTHM NORMAL ECG WHEN COMPARED WITH ECG OF 31-DEC-2016 13:21, NO SIGNIFICANT CHANGE WAS FOUND Confirmed by ANYI VILLALBA MD ([id number]) on 01/20/2017 12:50:21 PM Referred By: Confirmed By:ANYI VILLALBA MD
== END 2017-01-20 03:29 | disposition home or self-care (01) ==
LOC: JER 19:49
PROC: 3E0337Z Introduction of Electrolytic and Water Balance Substance into Peripheral Vein, Percutaneous Approach (ICD-10-PCS; principal; 2017-01-19)
PROC: 3E033GC Introduction of Other Therapeutic Substance into Peripheral Vein, Percutaneous Approach (ICD-10-PCS; 2017-01-19)
DX: F15.10 Other stimulant abuse, uncomplicated (principal); I25.10 Atherosclerotic heart disease of native coronary artery without angina pectoris; I10 Essential (primary) hypertension; F17.210 Nicotine dependence, cigarettes, uncomplicated; I25.2 Old myocardial infarction; E11.9 Type 2 diabetes mellitus without complications; Z79.84 Long term (current) use of oral hypoglycemic drugs; J45.909 Unspecified asthma, uncomplicated; J44.9 Chronic obstructive pulmonary disease, unspecified; Z86.73 Personal history of transient ischemic attack (TIA), and cerebral infarction without residual deficits; Z79.01 Long term (current) use of anticoagulants; E78.00 Pure hypercholesterolemia, unspecified
CPT/HCPCS: 36415; 71010-TC; 80053; 80307; 81003; 81015; 84484; 85025; 85610; 93005; 93010; 96361; 96374; 99284-25

== ENCOUNTER 2017-01-25 00:05 | Emergency (ER) | payer OTHER ==
[2017-01-25 00:46] VITALS: TEMP 98.2; BMI 38.8
[2017-01-25] MEDS ORDERED: ACETAMINOPHEN 325 MG TABLET (FP) PO ONE (01:03)
[2017-01-25] MEDS ORDERED: ACETAMINOPHEN 325 MG TABLET (FP) ONE ×2 (01:12→01:17)
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
[2017-01-25] MEDS ORDERED: ALBUTEROL SO4 2.5/IPRATROPIUM 0.5 INH SOL 3 ML VIAL.NEB. NEB ONE ×2 (01:40→03:02)
[2017-01-25 07:29] VITALS: BP 118/86; PULSE 82
== END 2017-01-25 07:29 | disposition home or self-care (01) ==
LOC: JER 00:05
PROC: 3E0F7GC Introduction of Other Therapeutic Substance into Respiratory Tract, Via Natural or Artificial Opening (ICD-10-PCS; principal; 2017-01-25)
DX: B34.9 Viral infection, unspecified (principal); D64.9 Anemia, unspecified; J45.909 Unspecified asthma, uncomplicated; J44.9 Chronic obstructive pulmonary disease, unspecified; E11.9 Type 2 diabetes mellitus without complications; Z79.84 Long term (current) use of oral hypoglycemic drugs; I25.2 Old myocardial infarction; I10 Essential (primary) hypertension; E03.9 Hypothyroidism, unspecified; F31.9 Bipolar disorder, unspecified; F43.10 Post-traumatic stress disorder, unspecified
CPT/HCPCS: 71010-TC; 99281-25; 99282-25

== ENCOUNTER 2017-02-17 10:18 | Emergency (ER) | payer OTHER ==
[2017-02-17] MEDS ORDERED: ACETAMINOPHEN 500 MG TABLET (FP) PO ONE (11:07)
[2017-02-17] MEDS ORDERED: ACETAMINOPHEN 325 MG TABLET (FP) ONE (11:20)
[2017-02-17 11:55] VITALS: BMI 36.9
--- NOTE | 2017-02-17 12:13 | PDOC ---
History of Present Illness <Ryan Carrasco - Last Filed: 02/17/17 12:22> - History of Present Illness Initial Comments: 02/17/17 12:07 "The patient is a 51 year old female, with a significant past medical history of CAD,ND(x3), anemia, CVA(x3), TIA(w/ residual left sided weakness), asthma, COPD, bipolar disorder, hypertension, hyperlipidemia, hypothyroidism, morbid obesity, diabetes mellitus, hypertension, schizophrenia who presents to the emergency department s/p mechanical fall last night. Patient reports she was in bed last night, fell and landed on her left shoulder. Denies headstrike/LOC. Patient denies any weakness, changes in vision. No hip pain, neck or back pain. Patient reports associated left shoulder pain, which she rates a 9/10. Patient reports her pain is exacerbated with movement of her left arm. Patient reports she was able to get up on her own immediately afterwards. She denies any other trauma, recent travel or sick contacts. Allergies: As per nursing notes. Past Surgical History: Back Surgery, Abdominal surgery Social History: Former smoker. No reported ETOH or recreational drug use. PCP: Dr. Fernando Serrano " <Daryl Breen - Last Filed: 02/17/17 12:56> - General Chief Complaint: Injury Stated Complaint: SHOULDER PAIN Time Seen by Provider: 02/17/17 10:35 Past History <Ryan Carrasco - Last Filed: 02/17/17 12:22> - Past Medical History Anemia: Yes Asthma: Yes Cancer: No Cardiac Disorders: Yes (chest pain, CAD, ND x3) CVA: Yes (CVA x3, TIA, left sided residual) COPD: Yes CHF: No Dementia: No Diabetes: Yes GI Disorders: Yes (PEPTIC ULCER) Disorders: No HTN: Yes Hypercholesterolemia: Yes HIV: (PT REPORTS SHE IS POITIVE ON HER RECORDS BUT REPORTS SHE IS NEGATIVE) Liver Disease: No Psychiatric Problems: Yes (BIPOLAR, POST TRAMATIC STRESS) Suicide Attempt (Hx): No Seizures: No Thyroid Disease: No - Surgical History Abdominal Surgery: Yes Appendectomy: No Cardiac Surgery: No Cholecystectomy: No Lung Surgery: No Neurologic Surgery: No Orthopedic Surgery: No - Immunization History Immunization Up to Date: No - Psycho/Social/Smoking Cessation Hx Anxiety: No Suicidal Ideation: No Smoking Status: Yes Smoking History: Unknown if ever smoked Have you smoked in the past 12 months: No Number of Cigarettes Smoked Daily: 3 If you are a former smoker, when did you quit?: 09/18/14 Cigars Per Day: 20 Information on smoking cessation initiated: No 'Breaking Loose' booklet given: 10/30/14 Hx Alcohol Use: No Drug/Substance Use Hx: No Substance Use Type: None Hx Substance Use Treatment: Yes <Daryl Breen - Last Filed: 02/17/17 12:56> - Past Medical History Allergies/Adverse Reactions: Allergies Allergy/AdvReac Type Severity Reaction Status Date / Time hydromorphone HCl Allergy Intermediate Itching Verified 01/25/17 00:27 [From Dilaudid] amoxicillin [Amoxicillin] Allergy Verified 01/25/17 00:27 ampicillin Allergy Verified 01/25/17 00:27 aspirin Allergy Verified 01/25/17 00:27 cranberry Allergy Verified 01/25/17 00:27 doxycycline Allergy Verified 01/25/17 00:27 Fish Containing Products Allergy Difficulty Verified 01/25/17 00:27 Breathing haloperidol [From Haldol] Allergy Verified 01/25/17 00:27 haloperidol lactate Allergy Verified 01/25/17 00:27 [From Haldol] ibuprofen [From Motrin] Allergy Verified 01/25/17 00:27 ketorolac tromethamine Allergy Verified 01/25/17 00:27 [From Toradol] levofloxacin [From Levaquin] Allergy Verified 01/25/17 00:27 lidocaine [From Lidoderm] Allergy Verified 01/25/17 00:27 milk Allergy Difficulty Verified 01/25/17 00:27 Breathing oxycodone HCl [From Percocet] Allergy Verified 01/25/17 00:27 Penicillins Allergy Verified 01/25/17 00:27 sulfamethoxazole Allergy Verified 01/25/17 00:27 [From Bactrim] tomato [Tomato] Allergy Hives Verified 01/25/17 00:27 trimethoprim [From Bactrim] Allergy Verified 01/25/17 00:27 warfarin sodium Allergy Verified 01/25/17 00:27 [From Coumadin] Gravy Allergy Unknown Uncoded 01/25/17 00:27 Cranberry/Cranberry juice Allergy Uncoded 01/25/17 00:27 Home Medications: Ambulatory Orders Albuterol Sulfate Inhaler - [Ventolin Hfa Inhaler -] 2 inh PO Q6H 02/17/17 Apixaban [Eliquis -] 5 mg PO BID 02/17/17 Benztropine Mesylate [Cogentin -] 0.5 mg PO BID 02/17/17 Budesonide/Formeterol Fumarate [SYMBICORT 80/4.5mcg -] 1 inh PO BID 02/17/17 Clonazepam [Klonopin] 1 mg PO BID 02/17/17 Divalproex [Depakote -] 250 mg PO HS 02/17/17 Divalproex [Depakote -] 500 mg PO BID 02/17/17 Docusate Sodium [Colace -] 300 mg PO HS 02/17/17 Ferrous Sulfate [Feosol] 325 mg PO DAILY 02/17/17 Fluoxetine HCl 40 mg PO DAILY 02/17/17 Furosemide [Lasix -] 40 mg PO DAILY 02/17/17 Levothyroxine [Synthroid -] 50 mcg PO DAILY 02/17/17 Metformin HCl 1,000 mg PO BID 02/17/17 Metoprolol Succinate [Toprol Xl -] 25 mg PO BID 02/17/17 Pantoprazole Sodium [Protonix -] 40 mg PO DAILY 02/17/17 Polyethylene Glycol 3350 [Miralax (For Daily Use) -] 17 gm PO DAILY 02/17/17 Quetiapine Fumarate [Seroquel -] 200 mg PO HS 02/17/17 Sennosides [Senna] 2 tab PO HS 02/17/17 Simvastatin [Zocor -] 40 mg PO HS 02/17/17 Review of Systems - Review of Systems Comments:: 02/17/17 12:11 "GENERAL/CONSTITUTIONAL: No fever or chills. No weakness. HEAD, EYES, EARS, NOSE AND THROAT: No change in vision. No ear pain or discharge. No sore throat. CARDIOVASCULAR: No chest pain or shortness of breath. RESPIRATORY: No cough, wheezing, or hemoptysis. GASTROINTESTINAL: No nausea, vomiting, diarrhea or constipation. GENITOURINARY: No dysuria, frequency, or change in urination. MUSCULOSKELETAL: Yes: +left shoulder pain. No other joint or muscle swelling or pain. No neck or back pain. SKIN: No rash NEUROLOGIC: No vertigo, loss of consciousness, or change in strength/sensation. ENDOCRINE: No increased thirst. No abnormal weight change. HEMATOLOGIC/LYMPHATIC: No anemia, easy bleeding, or history of blood clots. ALLERGIC/IMMUNOLOGIC: No hives or skin allergy." <NuhaDaryl - Last Filed: 02/17/17 12:56> *Physical Exam - Vital Signs Last Vital Signs Temp Pulse Resp BP Pulse Ox 98.0 F 73 18 91/58 100 02/17/17 10:20 02/17/17 10:20 02/17/17 10:20 02/17/17 10:20 02/17/17 10:20 <Carrasco,Giomilsy - Last Filed: 02/17/17 12:22> - Vital Signs Last Vital Signs Temp Pulse Resp BP Pulse Ox 98.0 F 73 18 91/58 100 02/17/17 10:20 02/17/17 10:20 02/17/17 10:20 02/17/17 10:20 02/17/17 10:20 - Physical Exam Comments: 02/17/17 12:11 "GENERAL: Awake, alert, and fully oriented, in no acute distress HEAD: No signs of trauma EYES: PERRLA, EOMI, sclera anicteric, conjunctiva clear ENT: Auricles normal inspection, hearing grossly normal, nares patent, oropharynx clear without exudates. Moist mucosa NECK: Nontender, no stepoffs, Normal ROM, supple, no lymphadenopathy, JVD, or masses LUNGS: Breath sounds equal, clear to auscultation bilaterally. No wheezes, and no crackles HEART: Regular rate and rhythm, normal S1 and S2, no murmurs, rubs or gallops ABDOMEN: Soft, nontender, normoactive bowel sounds. No guarding, no rebound. No masses EXTREMITIES: Tenderness to palpation of the left AC joint. No deformity, Normal range of motion, no edema. No clubbing or cyanosis. No cords, erythema, or tenderness NEUROLOGICAL: Cranial nerves II through XII intact. 5/5 strength and sensation in all extremities, Normal speech, normal gait SKIN: Warm, Dry, normal turgor, no rashes or lesions noted. " <NuhaDaryl - Last Filed: 02/17/17 12:56> ED Treatment Course - Medications Given in the ED: ED Medications Discontinued Medications Generic Name Dose Route Start Last Admin Trade Name Mitchelaryan PRN Reason Stop Dose Admin Acetaminophen 1,000 mg 02/17/17 11:07 02/17/17 11:26 Tylenol - PO 02/17/17 11:08 1,000 mg ONCE ONE Administration <Ryan Carrasco - Last Filed: 02/17/17 12:22> - RADIOLOGY Radiology Studies Ordered: Category Date Time Status HEAD CT WITHOUT CONTRAST [CT] Stat CT Scan 02/17/17 11:03 Ordered CHEST PA & LAT [RAD] Stat Radiology 02/17/17 11:07 Completed SHOULDER-LEFT [RAD] Stat Radiology 02/17/17 11:02 Completed - Medications Given in the ED: ED Medications Discontinued Medications Generic Name Dose Route Start Last Admin Trade Name Freq PRN Reason Stop Dose Admin Acetaminophen 1,000 mg 02/17/17 11:07 02/17/17 11:26 Tylenol - PO 02/17/17 11:08 1,000 mg ONCE ONE Administration <Daryl Breen - Last Filed: 02/17/17 12:56> Medical Decision Making - Medical Decision Making 02/17/17 12:12 51 F with L shoulder pain after falling out of bed last night. No deformity to suggest fx or dislocation. Possible AC joint separation. - CTH given pt is on coumadin - XR shoulder - Tylenol 02/17/17 12:[address] negative. Pt stable for DC. <Daryl Breen - Last Filed: 02/17/17 12:56> *DC/Admit/Observation/Transfer - Attestations Scribe Attestion: 02/17/17 12:22 Documentation prepared by Ryan Carrasco, acting as neuropsychology medical consultant for Daryl Breen MD. <Ryan Carrasco - Last Filed: 02/17/17 12:22> - Attestations Physician Attestion: 02/17/17 12:55 I, Dr. Daryl Breen MD, attest that this document has been prepared under my direction and personally reviewed by me in its entirety. I further attest, that it accurately reflects all work, treatment, procedures and medical decision -making performed by me. <Daryl Breen - Last Filed: 02/17/17 12:56> Diagnosis at time of Disposition: Left shoulder pain - Discharge Dispostion Disposition: HOME - Patient Instructions Printed Discharge Instructions: DI for Shoulder Pain Additional Instructions: Take tylenol as needed for your shoulder pain. Follow up with your primary care doctor within 1-2 weeks for a re-evaluation. If you experience worsening pain, chest pain, shortness of breath, or any other concerning symptoms, return to the ER immediately.
[2017-02-17 13:47] VITALS: BP 133/100; PULSE 78; TEMP 97.7
== END 2017-02-17 13:47 ==
LOC: JER 10:18
DX: M25.512 Pain in left shoulder (principal); W06.XXXA Fall from bed, initial encounter; Y93.89 Activity, other specified; Y92.122 Bedroom in nursing home as the place of occurrence of the external cause; I25.2 Old myocardial infarction; I11.9 Hypertensive heart disease without heart failure; J45.909 Unspecified asthma, uncomplicated; J44.9 Chronic obstructive pulmonary disease, unspecified; F31.9 Bipolar disorder, unspecified; F20.9 Schizophrenia, unspecified; I10 Essential (primary) hypertension; E11.9 Type 2 diabetes mellitus without complications; Z79.84 Long term (current) use of oral hypoglycemic drugs; E78.00 Pure hypercholesterolemia, unspecified; E03.9 Hypothyroidism, unspecified; E66.01 Morbid (severe) obesity due to excess calories; Z68.36 Body mass index [BMI] 36.0-36.9, adult
CPT/HCPCS: 70450-TC; 71020-TC; 73030-TC-LT; 99282-25

== ENCOUNTER 2017-03-15 16:49 | Inpatient (IN) | payer OTHER ==
--- NOTE | 2017-03-15 16:52 | PDOC ---
History of Present Illness - General History Source: Patient Exam Limitations: No Limitations - History of Present Illness Initial Comments: 03/15/17 17:24 The patient is a 51 year old female, with a significant past medical history of CAD, NC(x3), anemia, CVA(x3), TIA(w/ residual left sided weakness), asthma, COPD , bipolar disorder, hypertension, hyperlipidemia, hypothyroidism, morbid obesity , diabetes mellitus, hypertension, schizophrenia who presents to the emergency department with numbness and tingling to the left face/extremities with associated weakness and slurred speech since earlier today. The patient reports she was last well at 23:00 last night before she went to bed. Patient states when she woke up this morning at around 07:30 she began to develop numbness and tingling on the left side of her body. Patient reports going to bed again, but when she woke up around 14:30 she noted increased slurred speech, which is not part of the baseline. Patient reports some dizziness, but denies any headache, changes in vision, or LOC. She reports some chest pain since earlier today, but denies any shortness of breath, diaphoresis, palpitations, or lower extremity edema. She reports some abdominal pain, nausea, and vomiting the past couple of days, but denies any diarrhea or constipation. She denies any dysuria, hematuria , frequency, or urgency. She denies any fever or chills. She denies any recent travel or sick contacts. Allergies: As per nursing notes. Past Surgical History: Back Surgery, Abdominal surgery Social History: Former smoker. No reported ETOH or recreational drug use. PCP: Dr. Fernando Serrano <Ryan Carrasco - Last Filed: 03/15/17 19:02> <Poppy Cohen - Last Filed: 03/19/17 01:20> - General Stated Complaint: POSS STROKE Time Seen by Provider: 03/15/17 16:51 NIH Stroke Scale - Last Known Well Date/Time & Onset Date Last Known Well: 03/14/17 Time Last Known Well: 23:00 - Initial Evaluation Level of consciousness: Alert Ask patient the month and their age: Answers one correctly Ask patient to open & close eyes; make fist and let go: Obeys both correctly Best gaze (horizontal eye movement): Normal Visual field testing: No visual field loss Facial paresis (Show teeth/raise eyebrows/close eyes tight): Normal symmetrical movement Motor Function: Left Arm: Drift Motor Function: Right Arm: Normal (extends arm 90 (or 45) degrees for 10 seconds without drift Motor Function: Left Leg: Drift Motor Function: Right Leg: Normal (extends leg 30 degrees for 5 seconds without drift) Limb Ataxia: No ataxia Sensory(Use pinprick test arms,legs,trunk,face/side to side): Mild to moderate decrease in sensation Best language (Describe picture, name items, read sentences): No Aphasia Dysarthria (read several words): Mild to moderate slurring of words Extinction and Inattention: No abnormality - Total Score NIH Stroke Scale Score: 5 <Poppy Cohen - Last Filed: 03/19/17 01:20> tPA Exclusion checklist 3-4.5h - Time Elapsed Date last known well: 03/14/17 Time last known well: 23:00 Elaspsed time: 4 Day(s) and 2 Hour(s) and 20 Minutes - Thrombolytic Therapy Candidate Is patient eligible for thrombolytic therapy: No - Ineligibility reason(s) Reasons No tPA given: Outside of window - delayed arrival <Poppy Cohen - Last Filed: 03/19/17 01:20> Past History <Ryan Carrasco - Last Filed: 03/15/17 19:02> - Past Medical History Anemia: Yes Asthma: Yes Cancer: No Cardiac Disorders: Yes (chest pain, CAD, NC x3) CVA: Yes (CVA x3, TIA, left sided residual) COPD: Yes CHF: No Dementia: No Diabetes: Yes GI Disorders: Yes (PEPTIC ULCER) Disorders: No HTN: Yes Hypercholesterolemia: Yes Liver Disease: No Psychiatric Problems: Yes (BIPOLAR, POST TRAMATIC STRESS) Seizures: No Thyroid Disease: No - Surgical History Abdominal Surgery: Yes Appendectomy: No Cardiac Surgery: No Cholecystectomy: No Lung Surgery: No Neurologic Surgery: No Orthopedic Surgery: No - Immunization History Immunization Up to Date: No - Suicide/Smoking/Psychosocial Hx Smoking Status: Yes Smoking History: Unknown if ever smoked Have you smoked in the past 12 months: No Number of Cigarettes Smoked Daily: 3 If you are a former smoker, when did you quit?: 09/18/14 Cigars Per Day: 20 'Breaking Loose' booklet given: 10/30/14 Hx Alcohol Use: No Drug/Substance Use Hx: No Substance Use Type: None Hx Substance Use Treatment: Yes <Poppy Cohen - Last Filed: 03/19/17 01:20> - Past Medical History Allergies/Adverse Reactions: Allergies Allergy/AdvReac Type Severity Reaction Status Date / Time hydromorphone HCl Allergy Intermediate Itching Verified 03/15/17 16:53 [From Dilaudid] amoxicillin [Amoxicillin] Allergy Verified 03/15/17 16:53 ampicillin Allergy Verified 03/15/17 16:53 aspirin Allergy Difficulty Verified 03/16/17 02:03 Breathing cranberry Allergy Rash Verified 03/16/17 02:03 doxycycline Allergy Rash Verified 03/16/17 02:03 Fish Containing Products Allergy Difficulty Verified 03/15/17 16:53 Breathing haloperidol [From Haldol] Allergy Rash Verified 03/16/17 02:03 haloperidol lactate Allergy Rash Verified 03/16/17 02:03 [From Haldol] ibuprofen [From Motrin] Allergy Difficulty Verified 03/16/17 02:03 Breathing ketorolac tromethamine Allergy Rash Verified 03/16/17 02:03 [From Toradol] levofloxacin [From Levaquin] Allergy Rash Verified 03/16/17 02:03 milk Allergy Difficulty Verified 03/15/17 16:53 Breathing oxycodone HCl [From Percocet] Allergy Rash Verified 03/16/17 02:03 Penicillins Allergy Difficulty Verified 03/16/17 02:03 Breathing sulfamethoxazole Allergy Rash Verified 03/16/17 02:03 [From Bactrim] tomato [Tomato] Allergy Hives Verified 03/15/17 16:53 trimethoprim [From Bactrim] Allergy Verified 03/15/17 16:53 warfarin sodium Allergy Verified 03/15/17 16:53 [From Coumadin] Gravy Allergy Unknown Uncoded 03/15/17 16:53 Cranberry/Cranberry juice Allergy Uncoded 03/15/17 16:53 Home Medications: Ambulatory Orders Albuterol Sulfate Inhaler - [Ventolin HFA Inhaler -] 2 puff IH Q4H 03/15/17 Benztropine Mesylate [Cogentin -] 0.5 mg PO BID 03/15/17 Budesonide/Formeterol Fumarate [SYMBICORT 80/4.5mcg -] 1 inh PO DAILY 03/15/17 Bupropion HCl [Bupropion HCl Sr] 150 mg PO DAILY 03/15/17 Clonazepam [Klonopin] 1 mg PO BID 03/15/17 Divalproex Sodium [Depakote] 500 mg PO BID 03/15/17 Docusate Sodium [Colace -] 300 mg PO HS 03/15/17 Ferrous Sulfate 325 mg PO DAILY 03/15/17 Furosemide [Lasix] 40 mg PO DAILY 03/15/17 Gabapentin [Neurontin] 600 mg PO TID 03/15/17 Metformin HCl 1,000 mg PO BID 03/15/17 Metoprolol Succinate [Toprol XL -] 25 mg PO BID 03/15/17 Morphine *Sr* [MS Contin -] 30 mg PO Q6H 03/15/17 Nitroglycerin [Nitrostat] 0.4 mg SL PRN PRN 03/15/17 Polyethylene Glycol 3350 [Miralax 119 gm Btl -] 17 gm PO DAILY 03/15/17 Quetiapine Fumarate [Seroquel] 200 tab PO HS 03/15/17 Sennosides [Senna -] 2 tab PO HS 03/15/17 Simvastatin [Zocor -] 40 mg PO HS 03/15/17 Apixaban [Eliquis] 5 mg PO BID 03/16/17 Divalproex [Depakote -] 250 mg PO HS 03/16/17 Fluoxetine HCl 40 mg PO DAILY 03/16/17 Levothyroxine [Synthroid -] 500 mcg PO DAILY 03/16/17 Pantoprazole Sodium [Protonix] 40 mg PO DAILY 03/16/17 Review of Systems - Review of Systems Able to Perform ROS?: Yes Comments:: 03/15/17 17:24 GENERAL/CONSTITUTIONAL: Yes left sided weakness. No fever or chills. HEAD, EYES, EARS, NOSE AND THROAT: No change in vision. No ear pain or discharge. No sore throat. CARDIOVASCULAR: Chest pain. No shortness of breath. RESPIRATORY: No cough, wheezing, or hemoptysis. GASTROINTESTINAL: Yes: abdominal pain, nausea, vomiting. No diarrhea or constipation. GENITOURINARY: No dysuria, frequency, or change in urination. MUSCULOSKELETAL: No joint or muscle swelling or pain. No neck or back pain. SKIN: No rash NEUROLOGIC: Left sided numbness/tingling, slurred speech, left sided weakness, dizziness. No headache, loss of consciousness. ENDOCRINE: No increased thirst. No abnormal weight change. HEMATOLOGIC/LYMPHATIC: No anemia, easy bleeding, or history of blood clots. ALLERGIC/IMMUNOLOGIC: No hives or skin allergy. <Ryan Carrasco - Last Filed: 03/15/17 19:02> *Physical Exam - Vital Signs Last Vital Signs Temp Pulse Resp BP Pulse Ox 98.5 F 88 18 125/70 100 03/15/17 16:53 03/15/17 17:08 03/15/17 16:53 03/15/17 16:53 03/15/17 17:08 - Physical Exam Comments: 03/15/17 17:24 GENERAL: Awake, alert, and oriented to place and time, in no acute distress HEAD: No signs of trauma EYES: PERRLA, EOMI, sclera anicteric, conjunctiva clear ENT: Auricles normal inspection, hearing grossly normal, nares patent, oropharynx clear without exudates. Moist mucosa NECK: Normal ROM, supple, no lymphadenopathy, JVD, or masses LUNGS: Breath sounds equal, clear to auscultation bilaterally. No wheezes, and no crackles HEART: Regular rate and rhythm, normal S1 and S2, no murmurs, rubs or gallops ABDOMEN: Periumbilical tenderness. Soft, normoactive bowel sounds. No guarding, no rebound. No masses EXTREMITIES: Normal range of motion, no edema. No clubbing or cyanosis. No cords, erythema, or tenderness NEUROLOGICAL: Stuttered/slurred speech. Decreased sensation to the left face, but no left facial droop or weakness. Decreased sensation to the left arm and left leg with ? muscle strength. Right upper and lower extremities 5/5 strength and sensation SKIN: Warm, Dry, normal turgor, no rashes or lesions noted. <Ryan Carrasco - Last Filed: 03/15/17 19:02> Heart Score/ECG Review - ECG Intrepretation Comment:: 03/15/17 18:37 sinus at 76, nl axis, nl interval, no acute st/t wave findings <Poppy Cohen - Last Filed: 03/19/17 01:20> ED Treatment Course - LABORATORY CBC & Chemistry Diagram: 03/15/17 17:12 03/15/17 17:12 <Ryan Carrasco - Last Filed: 03/15/17 19:02> - LABORATORY CBC & Chemistry Diagram: 03/17/17 08:22 03/17/17 08:22 <Poppy Cohen - Last Filed: 03/19/17 01:20> Medical Decision Making - Critical Care Time Total Critical Care Time (minutes): 30 Critical Care Statement: The care of this patient involved high complexity decision making to prevent further life threatening deterioration of the patient 's condition and/or to evaluate & treat vital organ system(s) failure or risk of failure. - Medical Decision Making 03/15/17 17:12 51yo female with medics from home for facial numbness -last seen normal was 11p last night. -when she woke up at 7am she already felt "off" -when she woke up at 2p she felt worse -abd pain x 2-3 days, n/v yesterday, cp today -will obtain head ct -will check labs, trop, ekg, cxr -pt out of the window for TPA given last normal was 11p last night -will need admission <Poppy Cohen - Last Filed: 03/19/17 01:20> *DC/Admit/Observation/Transfer - Attestations Scribe Attestion: 03/15/17 17:25 Documentation prepared by Ryan Carrasco, acting as electromedical equipment repairer for Poppy Cohen DO. <Ryan Carrasco - Last Filed: 03/15/17 19:02> <Poppy Cohen - Last Filed: 03/19/17 01:20> Diagnosis at time of Disposition: Cerebrovascular accident (CVA) Qualifiers: CVA mechanism: other Qualified Code(s): I63.8 - Other cerebral infarction - Discharge Dispostion Condition at time of disposition: Improved - Referrals
[2017-03-15 17:07] VITALS: BMI 38.8
[2017-03-15 17:48] LABS: BASOPHIL 1.2 % (0-2.0); EOSINOPHIL 1.3 % (0-4.5); MCH 28.2 pg (25.7-33.7); MCHC 34.2 g/dl (32.0-36.0); MEAN CELL VOLUME 82.4 fl (80-96); MEAN PLT VOLUME 12.6 fl (7.5-11.1); NEUTROPHILS 63.4 % (42.8-82.8); PLATELET COUNT 237 K/MM3 (134-434); RDW 16.8 % (11.6-15.6); WHITE BLOOD COUNT 10.4 K/mm3 (4.0-10.0)
[2017-03-15 18:34] LABS: INR 1.05 (0.82-1.09); PROTHROMBIN TIME (PATIENT) 11.9 SEC (9.98-11.88)
[2017-03-15] MEDS ORDERED: ACETAMINOPHEN 325 MG TABLET (FP) PO ONE (19:40)
[2017-03-15 20:02] LABS: URINE APPEARANCE CLEAR; URINE BILIRUBIN NEGATIVE (NEGATIVE); URINE BLOOD TRACE-LYSE (NEGATIVE); URINE COLOR LT. YELLOW; URINE GLUCOSE (UA) NEGATIVE (NEGATIVE); URINE KETONE NEGATIVE (NEGATIVE); URINE NITRITE NEGATIVE (NEGATIVE); URINE PROTEIN NEGATIVE (NEGATIVE); URINE UROBILINOGEN 0.2 mg/dL (0.2-1.0)
[2017-03-15] MEDS ORDERED: morphine SO4 SUSTAINED ACTING 15 MG TABLET.SA PO ONE (21:31)
[2017-03-15] MEDS ORDERED: morphine SO4 SUSTAINED ACTING 15 MG TABLET.SA ONE (21:32)
--- NOTE | 2017-03-15 21:58 | PDOC ---
*Physical Exam - Vital Signs Last Vital Signs Temp Pulse Resp BP Pulse Ox 98.5 F 88 18 125/70 100 03/15/17 16:53 03/15/17 17:08 03/15/17 16:53 03/15/17 16:53 03/15/17 17:08 <NitaCatracho - Last Filed: 03/15/17 21:57> - Vital Signs Last Vital Signs Temp Pulse Resp BP Pulse Ox 98.5 F 88 18 125/70 100 03/15/17 16:53 03/15/17 17:08 03/15/17 16:53 03/15/17 16:53 03/15/17 17:08 <Christy Lamar - Last Filed: 03/16/17 06:43> ED Treatment Course - LABORATORY CBC & Chemistry Diagram: 03/15/17 17:12 03/15/17 17:12 - ADDITIONAL ORDERS Additional order review: Laboratory Results 03/15/17 03/15/17 03/15/17 21:22 19:00 17:12 PT with INR INR PTT (Actin FS) Sodium Cancelled Potassium Cancelled Chloride Cancelled Carbon Dioxide Cancelled Anion Gap Cancelled BUN Cancelled Creatinine Cancelled Creat Clearance w eGFR Cancelled Random Glucose Cancelled Lactic Acid Calcium Cancelled Magnesium Cancelled Total Bilirubin Cancelled AST Cancelled ALT Cancelled Alkaline Phosphatase Cancelled B-Natriuretic Peptide Cancelled Cancelled Total Protein Cancelled Albumin Cancelled Lipase Cancelled Beta HCG, Quant Urine Color Lt. yellow Urine Appearance Clear Urine pH 6.0 Ur Specific [place] Urine Protein Negative Urine Glucose (UA) Negative Urine Ketones Negative Urine Blood Trace-lyse Urine Nitrite Negative Urine Bilirubin Negative Urine Urobilinogen 0.2 Ur Leukocyte Esterase Anti-A Titer Blood Type Antibody Screen Spec Expiration Date 03/15/17 03/15/17 03/15/17 17:12 17:12 17:12 PT with INR 11.90 H INR 1.05 PTT (Actin FS) Sodium Potassium Chloride Carbon Dioxide Anion Gap BUN Creatinine Creat Clearance w eGFR Random Glucose Lactic Acid 1.1 Calcium Magnesium Cancelled Total Bilirubin AST ALT Alkaline Phosphatase B-Natriuretic Peptide Total Protein Albumin Lipase Cancelled Beta HCG, Quant Urine Color Urine Appearance Urine pH Ur Specific [place] Urine Protein Urine Glucose (UA) Urine Ketones Urine Blood Urine Nitrite Urine Bilirubin Urine Urobilinogen Ur Leukocyte Esterase Anti-A Titer Blood Type Antibody Screen Spec Expiration Date 03/15/17 03/15/17 03/15/17 17:12 17:12 17:12 PT with INR INR PTT (Actin FS) 36.6 H Sodium Cancelled Potassium Cancelled Chloride Cancelled Carbon Dioxide Cancelled Anion Gap Cancelled BUN Cancelled Creatinine Cancelled Creat Clearance w eGFR Cancelled Random Glucose Cancelled Lactic Acid Calcium Cancelled Magnesium Total Bilirubin Cancelled AST Cancelled ALT Cancelled Alkaline Phosphatase Cancelled B-Natriuretic Peptide Total Protein Cancelled Albumin Cancelled Lipase Beta HCG, Quant Cancelled Urine Color Urine Appearance Urine pH Ur Specific [place] Urine Protein Urine Glucose (UA) Urine Ketones Urine Blood Urine Nitrite Urine Bilirubin Urine Urobilinogen Ur Leukocyte Esterase Anti-A Titer Cancelled Blood Type Cancelled Antibody Screen Cancelled Spec Expiration Date Cancelled 03/15/17 17:12 RBC 5.42 H MCV 82.4 MCHC 34.2 RDW 16.8 H MPV 12.6 H D Neutrophils % 63.4 Lymphocytes % 28.6 Monocytes % 5.5 Eosinophils % 1.3 Basophils % 1.2 - Medications Given in the ED: ED Medications Discontinued Medications Generic Name Dose Route Start Last Admin Trade Name Freq PRN Reason Stop Dose Admin Acetaminophen 975 mg 03/15/17 19:40 03/15/17 21:37 Tylenol - PO 03/15/17 19:41 Not Given ONCE ONE Morphine Sulfate 30 mg 03/15/17 21:31 03/15/17 21:37 Ms Contin - PO 03/15/17 21:32 30 mg ONCE ONE Administration <Catracho Moya - Last Filed: 03/15/17 21:57> - LABORATORY CBC & Chemistry Diagram: 03/15/17 17:12 03/15/17 21:21 - ADDITIONAL ORDERS Additional order review: Laboratory Results 03/15/17 03/15/17 03/15/17 21:22 19:00 17:12 PT with INR INR PTT (Actin FS) Sodium Cancelled Potassium Cancelled Chloride Cancelled Carbon Dioxide Cancelled Anion Gap Cancelled BUN Cancelled Creatinine Cancelled Creat Clearance w eGFR Cancelled Random Glucose Cancelled Lactic Acid Calcium Cancelled Magnesium Cancelled Total Bilirubin Cancelled AST Cancelled ALT Cancelled Alkaline Phosphatase Cancelled B-Natriuretic Peptide Cancelled Cancelled Total Protein Cancelled Albumin Cancelled Lipase Cancelled Beta HCG, Quant Urine Color Lt. yellow Urine Appearance Clear Urine pH 6.0 Ur Specific [place] Urine Protein Negative Urine Glucose (UA) Negative Urine Ketones Negative Urine Blood Trace-lyse Urine Nitrite Negative Urine Bilirubin Negative Urine Urobilinogen 0.2 Ur Leukocyte Esterase Anti-A Titer Blood Type Antibody Screen Spec Expiration Date 03/15/17 03/15/17 03/15/17 17:12 17:12 17:12 PT with INR 11.90 H INR 1.05 PTT (Actin FS) Sodium Potassium Chloride Carbon Dioxide Anion Gap BUN Creatinine Creat Clearance w eGFR Random Glucose Lactic Acid 1.1 Calcium Magnesium Cancelled Total Bilirubin AST ALT Alkaline Phosphatase B-Natriuretic Peptide Total Protein Albumin Lipase Cancelled Beta HCG, Quant Urine Color Urine Appearance Urine pH Ur Specific [place] Urine Protein Urine Glucose (UA) Urine Ketones Urine Blood Urine Nitrite Urine Bilirubin Urine Urobilinogen Ur Leukocyte Esterase Anti-A Titer Blood Type Antibody Screen Spec Expiration Date 03/15/17 03/15/17 03/15/17 17:12 17:12 17:12 PT with INR INR PTT (Actin FS) 36.6 H Sodium Cancelled Potassium Cancelled Chloride Cancelled Carbon Dioxide Cancelled Anion Gap Cancelled BUN Cancelled Creatinine Cancelled Creat Clearance w eGFR Cancelled Random Glucose Cancelled Lactic Acid Calcium Cancelled Magnesium Total Bilirubin Cancelled AST Cancelled ALT Cancelled Alkaline Phosphatase Cancelled B-Natriuretic Peptide Total Protein Cancelled Albumin Cancelled Lipase Beta HCG, Quant Cancelled Urine Color Urine Appearance Urine pH Ur Specific [place] Urine Protein Urine Glucose (UA) Urine Ketones Urine Blood Urine Nitrite Urine Bilirubin Urine Urobilinogen Ur Leukocyte Esterase Anti-A Titer Cancelled Blood Type Cancelled Antibody Screen Cancelled Spec Expiration Date Cancelled 03/15/17 17:12 RBC 5.42 H MCV 82.4 MCHC 34.2 RDW 16.8 H MPV 12.6 H D Neutrophils % 63.4 Lymphocytes % 28.6 Monocytes % 5.5 Eosinophils % 1.3 Basophils % 1.2 - Medications Given in the ED: ED Medications Discontinued Medications Generic Name Dose Route Start Last Admin Trade Name Freq PRN Reason Stop Dose Admin Acetaminophen 975 mg 03/15/17 19:40 03/15/17 21:37 Tylenol - PO 03/15/17 19:41 Not Given ONCE ONE Morphine Sulfate 30 mg 03/15/17 21:31 03/15/17 21:37 Ms Contin - PO 03/15/17 21:32 30 mg ONCE ONE Administration <Christy Lamar - Last Filed: 03/16/17 06:43> Medical Decision Making - Medical Decision Making 03/15/17 22:22 Dr. Rodriguez was paged and notified via phone service. Case was discussed with Dr. Rodriguez at 22:24. The patient will be admitted to the [facility] and Dr. Rodriguez has agreed to see the patient tomorrow morning. She will receive an MRI of the brain without contrast. 03/16/17 06:43 ADMITTED TO [facility]: cp/cva symptoms since last night. <Christy Lamar - Last Filed: 03/16/17 06:43> *DC/Admit/Observation/Transfer - Discharge Dispostion Admit: Yes <Catracho Moya - Last Filed: 03/15/17 21:57> - Attestations Scribe Attestion: 03/15/17 22:35 Documentation prepared by Christy Lamar, acting as medical attendant for Catracho Moya MD. <Christy Lamar - Last Filed: 03/16/17 06:43> Diagnosis at time of Disposition: Cerebrovascular accident (CVA) Qualifiers: CVA mechanism: other Qualified Code(s): I63.8 - Other cerebral infarction - Referrals - Patient Instructions - Post Discharge Activity History of Present Illnes - History of Present Illness History of Present Illness: 03/15/17 22:33 The patient is a 51 year old female, with a significant past medical history of CAD, GA(x3), anemia, CVA(x3), TIA(w/ residual left sided weakness), asthma, COPD , bipolar disorder, hypertension, hyperlipidemia, hypothyroidism, morbid obesity , diabetes mellitus, hypertension, schizophrenia, who presents to the ED with left-sided weakness and slurred speech. Pts Head CT scan is normal. She was a difficult stick and was stuck multiple times by Nursing and ED staff. Pt will be admitted for ongoing neurological symptoms. Allergies: As per nursing notes. Past Surgical History: Back Surgery, Abdominal surgery Social History: Former smoker. No reported ETOH or recreational drug use. PCP: Dr. Fernnado Serrano <Christy Lamar - Last Filed: 03/16/17 06:43>
[2017-03-15 22:39] LABS: ANION GAP 11 (8-16); CALCIUM 9.2 mg/dL (8.5-10.1); CO2 24 mmol/L (21-32); CREATININE 1.3 mg/dL (0.55-1.02); GLUCOSE,RANDOM 93 mg/dL (74-106)
--- NOTE | 2017-03-16 00:20 | HP ---
CHIEF COMPLAINT: Slurred speech and weakness of L side of face x 1 day PCP: None currently HISTORY OF PRESENT ILLNESS: Pt is a 51 year old female with PMHx of CAD, HI, CVA , Asthma, COPD, Bipolar disorder, HTN, HLD, Hypothyroidism, DM, morbid obesity, cocaine use, PUD, PTSD, migraines, presenting with slurred speech and weakness of the L side of her face. Patient lives in an adult home and went to bed yesterday at around 11pm (she has residual L sided weakness of Lower limb from previous stroke about 3 years ago with no previous slurring of speech) and woke up this morning at 7am with extreme fatigue and slurred speech. She reports having low appetite for the past 2-3 weeks, which just improved.Her mother asked her to go back to bed and she later woke up around 3pm with drooping of the left side of her face in addition to to the slurring of the speech. She was assisted using her cane down to the office where an ambulance was called that brought her her. There was no associated seizures or loss of consciousness. No history of trauma, no nausea or vomiting. Patient had been active the night before she said running after someone before she went to bed. No associated SOB, no cough, no orthopnea or PND. Patient reported chest pain today, crushing in nature, / that radiates to the L arm. The pain is relieved by morphine and there is no known aggravating factor. Patient admits to chronically being on pain meds since surgery for her back in 2009, and also to cocaine use, last use was yesterday. She was specifically requesting intravenous morphine as she says it works better and lasts longer. Patient is concerned about decreased urinary frequency and volume, said she passed urine last at 3pm on 03/15/17. No dysuria or hematuria. ER course was notable for: (1) Lactic acid 1.1, BNP-27.32, INR-1.05 (2) Cr-1.3 (3) Head CT w/o contrast- no discrete infarct- min to mild dilatation of lat and 3rd ventricle 4) Morphine- 30mg PO 5) Acetaminophen 675 6) EKG- Normal sinus rythm, normal EKG Recent Travel: PAST MEDICAL HISTORY: CAD, HI, CVA, Asthma, COPD, Bipolar disorder, HTN, HLD, Hypothyroidism, DM, morbid obesity, cocaine use, PUD, PTSD, migraines PAST SURGICAL HISTORY: Back surgery Abdominal hysterectomy Social History: Smoking: Current-5 cigs/day Alcohol: Not current user Drugs: Crack Cocaine-last use yesterday Family History: Allergies Breathing difficulty with-ASA, Penicillin, motrin Everything else listed rash-except lidocaine which she says she is not allergic to. hydromorphone HCl [From Dilaudid] Allergy (Intermediate, Verified 03/15/17 16:53 ) Itching amoxicillin [Amoxicillin] Allergy (Verified 03/15/17 16:53) ampicillin Allergy (Verified 03/15/17 16:53) aspirin Allergy (Verified 03/15/17 16:53) cranberry Allergy (Verified 03/15/17 16:53) doxycycline Allergy (Verified 03/15/17 16:53) Fish Containing Products Allergy (Verified 03/15/17 16:53) Difficulty Breathing haloperidol [From Haldol] Allergy (Verified 03/15/17 16:53) haloperidol lactate [From Haldol] Allergy (Verified 03/15/17 16:53) ibuprofen [From Motrin] Allergy (Verified 03/15/17 16:53) ketorolac tromethamine [From Toradol] Allergy (Verified 03/15/17 16:53) levofloxacin [From Levaquin] Allergy (Verified 03/15/17 16:53) lidocaine [From Lidoderm] Allergy (Verified 03/15/17 16:53) milk Allergy (Verified 03/15/17 16:53) Difficulty Breathing oxycodone HCl [From Percocet] Allergy (Verified 03/15/17 16:53) Penicillins Allergy (Verified 03/15/17 16:53) sulfamethoxazole [From Bactrim] Allergy (Verified 03/15/17 16:53) tomato [Tomato] Allergy (Verified 03/15/17 16:53) Hives trimethoprim [From Bactrim] Allergy (Verified 03/15/17 16:53) warfarin sodium [From Coumadin] Allergy (Verified 03/15/17 16:53) Gravy Allergy (Unknown, Uncoded 03/15/17 16:53) Cranberry/Cranberry juice Allergy (Uncoded 03/15/17 16:53) HOME MEDICATIONS: Home Medications Medication Instructions Recorded Albuterol Sulfate Inhaler - 2 puff IH DAILY 03/15/17 [Ventolin Hfa Inhaler -] Benztropine Mesylate [Cogentin -] 0.5 mg PO BID 03/15/17 Budesonide/Formeterol Fumarate 1 inh PO DAILY 03/15/17 [SYMBICORT 80/4.5mcg -] Bupropion HCl [Bupropion HCl Sr] 150 mg PO DAILY 03/15/17 Clonazepam [Klonopin] 1 mg PO BID 03/15/17 Divalproex Sodium [Depakote] 500 mg PO BID 03/15/17 Docusate Sodium [Colace -] 300 mg PO HS 03/15/17 Ferrous Sulfate 325 mg PO DAILY 03/15/17 Fluoxetine HCl 20 mg PO DAILY 03/15/17 Furosemide [Lasix] 40 mg PO DAILY 03/15/17 Gabapentin [Neurontin] 600 mg PO TID 03/15/17 Metformin HCl 1,000 mg PO BID 03/15/17 Metoprolol Succinate [Toprol Xl -] 25 mg PO BID 03/15/17 Morphine *Sr* [Ms Contin -] 30 mg PO Q6H 03/15/17 Nitroglycerin [Nitrostat] 0.4 mg SL PRN PRN 03/15/17 Polyethylene Glycol 3350 [Miralax 17 gm PO DAILY 03/15/17 (For Daily Use) -] Quetiapine Fumarate [Seroquel] 200 tab PO HS 03/15/17 Sennosides [Senna] 2 tab PO HS 03/15/17 Simvastatin [Zocor -] 40 mg PO HS 03/15/17 REVIEW OF SYSTEMS CONSTITUTIONAL: Absent: fever, chills, diaphoresis, generalized weakness+, malaise+, loss of appetite, weight change HEENT: Absent: rhinorrhea, nasal congestion, throat pain, throat swelling, difficulty swallowing+, mouth swelling, ear pain, eye pain, visual changes CARDIOVASCULAR: Absent: chest pain+, syncope, palpitations, irregular heart rate, lightheadedness, peripheral edema RESPIRATORY: Absent: cough, shortness of breath, dyspnea with exertion, orthopnea, wheezing, stridor, hemoptysis GASTROINTESTINAL: Absent: abdominal pain, abdominal distension, nausea, vomiting, diarrhea, constipation, melena, hematochezia GENITOURINARY: reduced urinary frequency,Absent: dysuria, frequency, urgency, hesitancy, hematuria, flank pain, genital pain MUSCULOSKELETAL: Absent: myalgia, arthralgia, joint swelling+, back pain, neck pain SKIN: Absent: rash, itching, pallor HEMATOLOGIC/IMMUNOLOGIC: Absent: easy bleeding, easy bruising, lymphadenopathy, frequent infections ENDOCRINE: Absent: unexplained weight gain, unexplained weight loss, heat intolerance, cold intolerance NEUROLOGIC: Absent: headache+, focal weakness+ (facial droop) or paresthesias, dizziness, unsteady gait, seizure, mental status changes, bladder or bowel incontinence PSYCHIATRIC: Absent: anxiety, depression, suicidal or homicidal ideation, hallucinations. PHYSICAL EXAMINATION GENERAL: Awake, lethargic, in no acute respiratory distress. HEAD: Normal with no signs of trauma EYES: Pupils equal, round and reactive to light, extraocular movements intact, no nystagmus, sclera anicteric, conjunctival injection L>R. EARS, NOSE, THROAT: Uvula and tongue not deviated, dark patches on hard palate, oropharynx clear without exudates. Moist mucous membranes. NECK: Normal range of motion, supple without lymphadenopathy, JVD, or masses. LUNGS: Reproducible chest pain in epigastric region, Breath sounds equal, clear to auscultation bilaterally. No wheezes, and no crackles. No accessory muscle use. HEART: Regular rate and rhythm, normal S1 and S2, murmur RSB, radiating to carotids ABDOMEN: Obese, Soft, epigastric tenderness, hypoactive bowel sounds, no guarding, no rebound, no masses. No hepatomegaly or splenomegaly. MUSCULOSKELETAL: Swollen knees R>L, No CVA tenderness. UPPER EXTREMITIES: , warm, well-perfused. No cyanosis. No clubbing. No peripheral edema. Normal power, tone and reflexes UL bilaterally LOWER EXTREMITIES: DP Pulses difficult to palpate, warm. No calf tenderness. No peripheral edema. Power 2/5 LLE, 5/5 RLE, 1+ reflex on L knee 2+ R knee NEUROLOGICAL: Facial droop, reduced facial crease on the R. Normal eye closure and eye brow raising bilaterally. Absent facial sensation on L. Reduced sensation on L upper and lower limbs. Slurred speech. gait not observed. PSYCHIATRIC: Cooperative. Good eye contact. Appropriate mood and affect. ASSESSMENT/PLAN: 51 yr f with PMHx of CAD, HI, CVA, Asthma, COPD, Bipolar disorder, HTN, HLD, Hypothyroidism, DM, morbid obesity, cocaine use, PUD, PTSD, migraines, presenting with slurred speech and weakness of the L side of her face. #R/O CVA: slurred speech, facial droop, reduced sensation on L side of face No acute infarction seen on CT scan w/o contrast EKG-no acute JUSTYNA/STD or TWI Patient said she has plates in back, so cannot do MRI - can verify with raiology as MRI of head was done 2012 after the time she said she got the plates [place] [address] scan of head tomorrow if MRI not possible Past window for TPA Patient is allergic to ASA (SOB) so can not take ASA Is on eliquis from home- continue eliquis 5 mg bid Continous cardiac monitoring Speech and swallow evaluation Neuro consult- Dr Rodriguez Physical therapy Carotid dopplers Atorvostatin 20mg HS Echo #Chest pain Recent cocaine use No SOB, normal EKG Reproducible epigastric pain Trops Repeat EKG Continous cardiac monitoring Hold B blockers Monitor #Chronic back pain Patient is requesting IV morphine, On chronic pain meds s/p back surgery Is on home morphine PO- continue monitor #Continous drug use disorder Patient is using crack cocaine Counseling Hold B blockers monitor #Obstructive Sleep apnea CPAP Monitor #Current smoker [employer] Nicotine patch offered #HTN Currently hypotensive in setting of likely CVA Hold Metoprolol Hold hydralazine Hold lasix #Bipolar disease Continue Quetiapine Continue prozac #COPD/Asthma Continue spiriva Continue Symbicort # PUD Continue Pantoprazole #CAD- stable for now Normal EKG Trops Echo Continue eliquis Hold Metoprolol Hold hydralazine Hold lasix #DM Hold metformin ISS BGMs #Previous CVA Depakoate #Prophylaxis Continue Eliquis Pantoprazole #FEN BMP Monitor electrolytes Replete as needed Visit type - Emergency Visit Emergency Visit: Yes ED Registration Date: 03/15/17 Care time: The patient presented to the Emergency Department on the above date and was hospitalized for further evaluation of their emergent condition. - New Patient This patient is new to me today: Yes Date on this admission: 03/16/17 - Critical Care Critical Care patient: No
--- NOTE | 2017-03-16 01:21 | PN ---
Teaching Attending Note Name of Resident: Maya Danielle ATTENDING PHYSICIAN STATEMENT I saw and evaluated the patient. I reviewed the resident's note and discussed the case with the resident. I agree with the resident's findings and plan as documented. SUBJECTIVE:51yo F with PMH CAD s/p [place] x2, COPD, bipolar, hypothyroid, DM, cocaine use, PTSH, DVT on eliquis presented to the ER for slurred speech and L sided weakness. states she woke up at 7AM with the symptoms but contributed it to being weak and a fever she had the day before (101.3). she took a nap and when she awoke at 1500 the symptoms persisted which prompted her to the ER. other than fever she has had no other symptoms and have been in usual state of health. she states she has had poor appetite over the past 2 months with 100 lb unintentional weight loss but that her appetite has improved. has not seen a physician in the past year. was recently started on a bladder medication due to incontinence, and started on eliquis due to B/L DVT that she developed earlier this year, does not know if they were provoked or not and has not seen a physician who instructed if she should continue or stop it. denies Cp, SOB, fever, chills, N/V/C/d last use cocaine yesterday OBJECTIVE: Last Vital Signs Temp Pulse Resp BP Pulse Ox 98.5 F 88 18 125/70 100 03/15/17 16:53 03/15/17 17:08 03/15/17 16:53 03/15/17 16:53 03/15/17 17:08 General NAD CV S1 S2 RRR no murmur/rub/gallop +chest wall tenderness Lungs CTA B/L no wheezing/rales/rhocnhi Abdomen soft NT/ND obese Extremities no pedal edema Neuro slurred speech, decreased sensation to L side of face, LUE and LLE, strength 5/5 B/L UE, no pronator drift, pt pushes against the bed with LLE to raise R leg and is using her hands during speaking and holding her head up off the bed with her L arm. dysmetria normal, gait testing deferred ASSESSMENT AND PLAN: 51yo F with PMH CAD s/p [place] x2, COPD, bipolar, hypothyroid, DM, cocaine use, PTSD , DVT on eliquis presented to the ER for slurred speech and L sided weakness 1. R/o CVA- tele admission. low suspicion for CVA given clinical findings but does have speech dysarthria. unclear if able to obtain MRI due to hardware in her back from back surgery 2009, does not know if there is metal. if unable to obtain MRI will need to repeat head CT, place on stroke unit, continuous cardiac monitoring, carotid doppler, echo, speech and swallow eval, PT assessment. pt has asa allergy. will defer to neurology about starting agent prophylactically. also questionable if on eliquis, may need to continue. on statin 2. CP-likely musculoskeletal. trend cardiac enzymes and EKG Q6H, continuous cardiac monitoring 3. Continuous cocaine dependence- last use yesterday. counseled on need for drug abstinence and risk assoc with continued use. hold beta chuy at this time 4. Leukocytosis- self reports fever at home. more likely reactive. no source of infection. will hold abx at this time 5. Chronic back pain- s/p surgery 2009. verify home morphine dose. 6. Hypothyroid- on LT4 7. DM- hold oral agents. iss, bgm 8. Bipolar- no signs of rebecca. QTc normal. cont seroquel, cogentin 9. COPD- not on home o2. no signs of COD exacerbation. cont inhalers 10. B/L DVT- self reports was on eliquis. will need to verify, has been on it for over 6 months at this time, may be able to hold at this time and f/u with PMD for hypercoagability workup 11. DVT ppx- hep sq
[2017-03-16] MEDS ORDERED: morphine SO4 SUSTAINED ACTING 15 MG TABLET.SA ONE ×3 (02:45→22:13)
[2017-03-16] MEDS: morphine SO4 SUSTAINED ACTING 30 MG TABLET.SA PO SCH ×4 (02:51→22:23)
[2017-03-16] MEDS ORDERED: LEVOTHYROXINE NA 100 MCG TABLET (FP) PO SCH (07:00)
[2017-03-16] MEDS: INSULIN SLIDING SCALE (NOVOLOG) 1 VIAL SQ SCH ×4 (08:03→22:31)
[2017-03-16] MEDS: BENZTROPINE MESYLATE 0.5 MG TABLET (FP) PO SCH ×2 (10:40→22:18)
[2017-03-16] MEDS: APIXABAN 5 MG TABLET PO SCH ×2 (10:41→22:18)
[2017-03-16] MEDS: DIVALPROEX SODIUM 500 MG TABLET E.C. PO SCH ×2 (10:41→22:18)
[2017-03-16] MEDS: FERROUS SO4 325 MG TABLET (FP) PO SCH (10:41)
[2017-03-16] MEDS: FLUoxetine HCL 20 MG CAPSULE (FP) PO SCH (10:42)
[2017-03-16] MEDS: PANTOPRAZOLE 40 MG TABLET (FP) PO SCH (10:42)
[2017-03-16] MEDS ORDERED: clonazePAM 0.5 MG TABLET ONE (10:56)
[2017-03-16] MEDS: clonazePAM 0.5 MG TABLET PO SCH ×2 (11:01→23:09)
[2017-03-16] MEDS: POLYETHYLENE GLYCOL 3350 119 GM BTL PO SCH (11:02)
--- NOTE | 2017-03-16 12:47 | EKG ---
Test Reason : Blood Pressure : / mmHG Vent. Rate : 076 BPM Atrial Rate : 076 BPM P-R Int : 134 ms QRS Dur : 100 ms QT Int : 418 ms P-R-T Axes : 047 013 038 degrees QTc Int : 470 ms NORMAL SINUS RHYTHM NORMAL ECG WHEN COMPARED WITH ECG OF 19-JAN-2017 21:27, NO SIGNIFICANT CHANGE WAS FOUND Confirmed by NAVNEET MARROQUIN MD ([id number]) on 03/16/2017 12:46:32 PM Referred By: Confirmed By:NAVNEET MARROQUIN MD
--- NOTE | 2017-03-16 13:36 | CONSULT ---
Consult - text type - Consultation Consultation Note: Neurology History of Present Illness The patient is a 51 year old female, with a significant past medical history of CAD, WV(x3), anemia, CVA(x3), TIA(w/ residual left sided weakness), asthma, COPD , bipolar disorder, hypertension, hyperlipidemia, hypothyroidism, morbid obesity , diabetes mellitus, hypertension, schizophrenia who presents to the emergency department with numbness and tingling to the left face/extremities with associated weakness and slurred speech. The patient reported she was last well night before admission at 23:00 before she went to bed. Patient states when she woke up this morning at around 07:30 she began to develop numbness and tingling on the left side of her body. Patient reports going to bed again, but when she woke up around 14:30 she noted increased slurred speech, which is not part of the baseline. She was not in TPA window. CT head was without acute changes. Admitted for further CVA workup. Past History - Past Medical History Anemia: Yes Asthma: Yes Cancer: No Cardiac Disorders: Yes (chest pain, CAD, WV x3) CVA: Yes (CVA x3, TIA, left sided residual) COPD: Yes CHF: No Dementia: No Diabetes: Yes GI Disorders: Yes (PEPTIC ULCER) Disorders: No HTN: Yes Hypercholesterolemia: Yes Liver Disease: No Psychiatric Problems: Yes (BIPOLAR, POST TRAMATIC STRESS) Seizures: No Thyroid Disease: No - Surgical History Abdominal Surgery: Yes Appendectomy: No Cardiac Surgery: No Cholecystectomy: No Lung Surgery: No Neurologic Surgery: No Orthopedic Surgery: No - Immunization History Immunization Up to Date: No - Suicide/Smoking/Psychosocial Hx Smoking Status: Yes Smoking History: Unknown if ever smoked Have you smoked in the past 12 months: No Number of Cigarettes Smoked Daily: 3 If you are a former smoker, when did you quit?: 09/18/14 Cigars Per Day: 20 'Breaking Loose' booklet given: 10/30/14 Hx Alcohol Use: No Drug/Substance Use Hx: No Substance Use Type: None Hx Substance Use Treatment: Yes - Past Medical History Allergies/Adverse Reactions: Allergies Allergy/AdvReac Type Severity Reaction Status Date / Time hydromorphone HCl Allergy Intermediate Itching Verified 03/15/17 16:53 [From Dilaudid] amoxicillin [Amoxicillin] Allergy Verified 03/15/17 16:53 ampicillin Allergy Verified 03/15/17 16:53 aspirin Allergy Verified 03/15/17 16:53 cranberry Allergy Verified 03/15/17 16:53 doxycycline Allergy Verified 03/15/17 16:53 Fish Containing Products Allergy Difficulty Verified 03/15/17 16:53 Breathing haloperidol [From Haldol] Allergy Verified 03/15/17 16:53 haloperidol lactate Allergy Verified 03/15/17 16:53 [From Haldol] ibuprofen [From Motrin] Allergy Verified 03/15/17 16:53 ketorolac tromethamine Allergy Verified 03/15/17 16:53 [From Toradol] levofloxacin [From Levaquin] Allergy Verified 03/15/17 16:53 lidocaine [From Lidoderm] Allergy Verified 03/15/17 16:53 milk Allergy Difficulty Verified 03/15/17 16:53 Breathing oxycodone HCl [From Percocet] Allergy Verified 03/15/17 16:53 Penicillins Allergy Verified 03/15/17 16:53 sulfamethoxazole Allergy Verified 03/15/17 16:53 [From Bactrim] tomato [Tomato] Allergy Hives Verified 03/15/17 16:53 trimethoprim [From Bactrim] Allergy Verified 03/15/17 16:53 warfarin sodium Allergy Verified 03/15/17 16:53 [From Coumadin] Gravy Allergy Unknown Uncoded 03/15/17 16:53 Cranberry/Cranberry juice Allergy Uncoded 03/15/17 16:53 Home Medications: Ambulatory Orders Albuterol Sulfate Inhaler - [Ventolin Hfa Inhaler -] 2 puff IH DAILY 03/15/17 Benztropine Mesylate [Cogentin -] 0.5 mg PO BID 03/15/17 Budesonide/Formeterol Fumarate [SYMBICORT 80/4.5mcg -] 1 inh PO DAILY 03/15/17 Bupropion HCl [Bupropion HCl Sr] 150 mg PO DAILY 03/15/17 Clonazepam [Klonopin] 1 mg PO BID 03/15/17 Divalproex Sodium [Depakote] 500 mg PO BID 03/15/17 Docusate Sodium [Colace -] 300 mg PO HS 03/15/17 Ferrous Sulfate 325 mg PO DAILY 03/15/17 Fluoxetine HCl 20 mg PO DAILY 03/15/17 Furosemide [Lasix] 40 mg PO DAILY 03/15/17 Gabapentin [Neurontin] 600 mg PO TID 03/15/17 Metformin HCl 1,000 mg PO BID 03/15/17 Metoprolol Succinate [Toprol Xl -] 25 mg PO BID 03/15/17 Morphine *Sr* [Ms Contin -] 30 mg PO Q6H 03/15/17 Nitroglycerin [Nitrostat] 0.4 mg SL PRN PRN 03/15/17 Polyethylene Glycol 3350 [Miralax (For Daily Use) -] 17 gm PO DAILY 03/15/17 Quetiapine Fumarate [Seroquel] 200 tab PO HS 03/15/17 Sennosides [Senna] 2 tab PO HS 03/15/17 Simvastatin [Zocor -] 40 mg PO HS 03/15/17 Review of Systems GENERAL/CONSTITUTIONAL: Yes left sided weakness. No fever or chills. HEAD, EYES, EARS, NOSE AND THROAT: No change in vision. No ear pain or discharge. No sore throat. CARDIOVASCULAR: Chest pain. No shortness of breath. RESPIRATORY: No cough, wheezing, or hemoptysis. GASTROINTESTINAL: Yes: abdominal pain, nausea, vomiting. No diarrhea or constipation. GENITOURINARY: No dysuria, frequency, or change in urination. MUSCULOSKELETAL: No joint or muscle swelling or pain. No neck or back pain. SKIN: No rash NEUROLOGIC: Left sided numbness/tingling, slurred speech, left sided weakness, dizziness. No headache, loss of consciousness. ENDOCRINE: No increased thirst. No abnormal weight change. HEMATOLOGIC/LYMPHATIC: No anemia, easy bleeding, or history of blood clots. ALLERGIC/IMMUNOLOGIC: No hives or skin allergy. *Physical Exam Vital Signs Temperature 97.2 F L 03/16/17 08:58 Pulse Rate 90 03/16/17 08:58 Respiratory Rate 20 03/16/17 08:58 Blood Pressure 108/79 03/16/17 08:58 O2 Sat by Pulse Oximetry (%) 98 03/16/17 06:49 GENERAL: Awake, alert, and oriented to place and time, in no acute distress HEAD: No signs of trauma EYES: PERRLA, EOMI, sclera anicteric, conjunctiva clear ENT: Auricles normal inspection, hearing grossly normal, nares patent, oropharynx clear without exudates. Moist mucosa NECK: Normal ROM, supple, no lymphadenopathy, JVD, or masses LUNGS: Breath sounds equal, clear to auscultation bilaterally. No wheezes, and no crackles HEART: Regular rate and rhythm, normal S1 and S2, no murmurs, rubs or gallops ABDOMEN: Periumbilical tenderness. Soft, normoactive bowel sounds. No guarding, no rebound. No masses EXTREMITIES: Normal range of motion, no edema. No clubbing or cyanosis. No cords, erythema, or tenderness NEUROLOGICAL: ?Stuttered/slurred speech. Decreased sensation to the left face, but no left facial droop or weakness. Decreased sensation to the left arm and left leg with ? muscle strength. Right upper and lower extremities 5/5 strength and sensation SKIN: Warm, Dry, normal turgor, no rashes or lesions noted. CBCD WBC 10.4 K/mm3 (4.0-10.0) H 03/15/17 17:12 RBC 5.42 M/mm3 (3.60-5.2) H 03/15/17 17:12 Hgb 15.3 GM/dL (10.7-15.3) D 03/15/17 17:12 Hct 44.6 % (32.4-45.2) D 03/15/17 17:12 MCV 82.4 fl (80-96) 03/15/17 17:12 MCHC 34.2 g/dl (32.0-36.0) 03/15/17 17:12 RDW 16.8 % (11.6-15.6) H 03/15/17 17:12 Plt Count 237 K/MM3 (134-434) D 03/15/17 17:12 MPV 12.6 fl (7.5-11.1) H D 03/15/17 17:12 CMP Sodium 141 mmol/L (136-145) 03/15/17 21:21 Potassium 4.3 mmol/L (3.5-5.1) 03/15/17 21:21 Chloride 106 mmol/L (98-107) 03/15/17 21:21 Carbon Dioxide 24 mmol/L (21-32) 03/15/17 21:21 Anion Gap 11 (8-16) 03/15/17 21:21 BUN 10 mg/dL (7-18) D 03/15/17 21:21 Creatinine 1.3 mg/dL (0.55-1.02) H 03/15/17 21:21 Creat Clearance w eGFR Cancelled 03/15/17 17:12 Calcium 9.2 mg/dL (8.5-10.1) 03/15/17 21:21 Total Bilirubin Cancelled 03/15/17 17:12 AST Cancelled 03/15/17 17:12 ALT Cancelled 03/15/17 17:12 Alkaline Phosphatase Cancelled 03/15/17 17:12 Total Protein Cancelled 03/15/17 17:12 Albumin Cancelled 03/15/17 17:12 CT head reviewed PLan: 51 year old female, with a significant past medical history of CAD, WV(x3), anemia, CVA(x3), TIA(w/ residual left sided weakness), asthma, COPD, bipolar disorder, hypertension, hyperlipidemia, hypothyroidism, morbid obesity, diabetes mellitus, hypertension, schizophrenia who presents to the emergency department with numbness and tingling to the left face/extremities with associated weakness and slurred speech. The patient reported she was last well night before admission at 23:00 before she went to bed. Patient states when she woke up this morning at around 07:30 she began to develop numbness and tingling on the left side of her body. Patient reports going to bed again, but when she woke up around 14:30 she noted increased slurred speech, which is not part of the baseline. She was not in TPA window. CT head was without acute changes. Admitted for further CVA workup. -MRI brain -ASA 81mg -Check LDL, statin -BP monitoring, goal < 160/90 -Tight glycemic control, continue metformin, -Monitor mental status, has h/o bipolar -PT/OT/Speech -DVT ppx
[2017-03-16] MEDS: BUDESONIDE/FORMETEROL FUMARATE 80/4.5 mcg INHALER IH SCH (21:51)
[2017-03-16] MEDS: ALBUTEROL SO4 18 GM HFA INHALER IH SCH (21:52)
[2017-03-16] MEDS ORDERED: morphine SULFATE IMMEDIATE RELEASE 30 MG TAB ONE (21:59)
[2017-03-16] MEDS: morphine SO4 SUSTAINED ACTING 15 MG TABLET.SA PO SCH (22:17)
[2017-03-16] MEDS: SENNOSIDES 8.6MG TABLET (FP) PO SCH (22:18)
[2017-03-16] MEDS: QUEtiapine FUMARATE 200 MG TABLET PO SCH (22:18)
[2017-03-16] MEDS: DOCUSATE SODIUM 100 MG CAPSULE (FP) PO SCH (22:19)
[2017-03-16] MEDS: ATORVASTATIN CA 20 MG TABLET (FP) PO SCH (22:19)
[2017-03-16] MEDS: DIVALPROEX SODIUM 250 MG TABLET E.C. (FP) PO SCH (22:19)
[2017-03-17] MEDS: morphine SO4 SUSTAINED ACTING 15 MG TABLET.SA PO SCH ×4 (01:04→18:35)
[2017-03-17] MEDS ORDERED: morphine SO4 SUSTAINED ACTING 15 MG TABLET.SA ONE ×2 (06:27→11:47)
[2017-03-17] MEDS: INSULIN SLIDING SCALE (NOVOLOG) 1 VIAL SQ SCH ×4 (06:31→16:28)
[2017-03-17 08:39] LABS: BASOPHIL 0.5 % (0-2.0); EOSINOPHIL 1.4 % (0-4.5); MCH 27.5 pg (25.7-33.7); MCHC 33.7 g/dl (32.0-36.0); MEAN CELL VOLUME 81.5 fl (80-96); MEAN PLT VOLUME 11.2 fl (7.5-11.1); NEUTROPHILS 73.9 % (42.8-82.8); PLATELET COUNT 192 K/MM3 (134-434); RDW 16.6 % (11.6-15.6); WHITE BLOOD COUNT 11.4 K/mm3 (4.0-10.0)
[2017-03-17 09:21] LABS: ALBUMIN 3.8 g/dl (3.4-5.0); ANION GAP 8 (8-16); BILIRUBIN,TOTAL 0.3 mg/dL (0.2-1.0); CALCIUM 9.4 mg/dL (8.5-10.1); CO2 29 mmol/L (21-32); CREATININE 1.4 mg/dL (0.55-1.02); GLUCOSE,RANDOM 118 mg/dL (74-106); SGOT/AST 12 U/L (15-37); SGPT/ALT 22 U/L (12-78)
[2017-03-17 09:22] LABS: ALK PHOS 106 U/L (45-117)
[2017-03-17] MEDS ORDERED: clonazePAM 0.5 MG TABLET ONE (10:30)
[2017-03-17] MEDS: clonazePAM 0.5 MG TABLET PO SCH (10:34)
[2017-03-17] MEDS: FERROUS SO4 325 MG TABLET (FP) PO SCH (10:34)
[2017-03-17] MEDS: FLUoxetine HCL 20 MG CAPSULE (FP) PO SCH (10:34)
[2017-03-17] MEDS: BENZTROPINE MESYLATE 0.5 MG TABLET (FP) PO SCH (10:34)
[2017-03-17] MEDS: APIXABAN 5 MG TABLET PO SCH (10:34)
[2017-03-17] MEDS: PANTOPRAZOLE 40 MG TABLET (FP) PO SCH (10:34)
[2017-03-17] MEDS: DIVALPROEX SODIUM 500 MG TABLET E.C. PO SCH (10:34)
[2017-03-17] MEDS: BUDESONIDE/FORMETEROL FUMARATE 80/4.5 mcg INHALER IH SCH (10:47)
[2017-03-17] MEDS: POLYETHYLENE GLYCOL 3350 119 GM BTL PO SCH (10:48)
[2017-03-17] MEDS: ALBUTEROL SO4 18 GM HFA INHALER IH SCH (10:48)
[2017-03-17] MEDS ORDERED: ASPIRIN 81 MG CHEWABLE TABLETS PO SCH (11:00)
[2017-03-17] MEDS ORDERED: diphenhydrAMINE HCL 25 MG CAPSULE (FP) PO ONE ×3 (15:10→21:19)
--- NOTE | 2017-03-17 15:27 | PN ---
Progress Note (short form) - Note Progress Note: called to see ms Manohar who is sedated at present, sleeping in holding area in awkward position. She is admitted with numbness and tingling and holding for CVA work up. Has past history of CVA. She bipolar or schizoaffective by history. She is on a concoction of psych medication including prozac 20 mg a day. Gapapentin 600 po tid Seroquel 200mg at night. depakote 500mg po bid. clonopin 1mg po bid. wellbutrin 150 mg daily. recommend u tox. VAlporic acid level.
--- NOTE | 2017-03-17 15:47 | PN ---
Physical Exam: SUBJECTIVE: Patient seen and examined. No acute events reported. Patient offers no new complaints and said nothing changed since yesterday. OBJECTIVE: Vital Signs Period Temp Pulse Resp BP Sys/Schultz Pulse Ox Last 24 Hr 97.4 F-97.8 F 94-122 18-20 112-128/55-77 96-98 GENERAL: Itching, anxious, A/0x3 with slurred speech HEAD: Normal with no signs of trauma EYES: Pupils equal, round and reactive to light, extraocular movements intact, no nystagmus, sclera anicteric EARS, NOSE, THROAT: Uvula and tongue not deviated, oropharynx clear without exudates. Moist mucous membranes. NECK: Normal range of motion, supple without lymphadenopathy, JVD, or masses. LUNGS: Breath sounds equal, clear to auscultation bilaterally. No wheezes, and no crackles. No accessory muscle use. HEART: Regular rate and rhythm, normal S1 and S2, murmur RSB ABDOMEN: Obese, Soft, epigastric tenderness, normoactive bowel sounds, no guarding, no rebound, no masses. No hepatomegaly or splenomegaly. MUSCULOSKELETAL: Swollen knees R>L, No CVA tenderness. UPPER EXTREMITIES: , warm, well-perfused. No cyanosis. No clubbing. No peripheral edema. Normal power, tone and reflexes UL bilaterally LOWER EXTREMITIES: 1+ pulses, warm. No calf tenderness. No peripheral edema. 3/ 5 LLE strength , 5/5 RLE, 1+ L knee patellar reflex NEUROLOGICAL: No left face droop or weakness. Normal eye closure and eye brow raising bilaterally. Reduced sensation on L upper and lower limbs. Slurred speech. gait not observed. Laboratory Results - last 24 hr 03/17/17 03/17/17 08:22 08:22 WBC 11.4 H RBC 4.89 Hgb 13.4 D Hct 39.9 MCV 81.5 MCH 27.5 MCHC 33.7 RDW 16.6 H Plt Count 192 MPV 11.2 H D Neutrophils % 73.9 Lymphocytes % 19.6 D Monocytes % 4.6 Eosinophils % 1.4 Basophils % 0.5 Sodium 139 Potassium 4.0 Chloride 102 Carbon Dioxide 29 D Anion Gap 8 BUN 20 H D Creatinine 1.4 H Creat Clearance w eGFR 39.80 Random Glucose 118 H D Calcium 9.4 Total Bilirubin 0.3 AST 12 L ALT 22 Alkaline Phosphatase 106 Total Protein 8.0 Albumin 3.8 Active Medications Generic Name Dose Route Start Last Admin Trade Name Winston PRN Reason Stop Dose Admin Albuterol Sulfate 2 puff 03/16/17 10:00 03/17/17 10:48 Ventolin Hfa Inhaler - IH 2 puff DAILY BHARAT Administration Apixaban 5 mg 03/16/17 10:00 03/17/17 10:34 Eliquis - PO 5 mg BID BHARAT Administration Atorvastatin Calcium 20 mg 03/16/17 22:00 03/16/17 22:19 Lipitor - PO 20 mg HS BHARAT Administration Benztropine Mesylate 0.5 mg 03/16/17 10:00 03/17/17 10:34 Cogentin - PO 0.5 mg BID BHARAT Administration Budesonide/Formoterol Fumarate 1 puff 03/16/17 10:00 03/17/17 10:47 Symbicort 80/4.5mcg - IH 1 puff DAILY BHARAT Administration Bupropion HCl 150 mg 03/16/17 10:00 03/17/17 10:34 Wellbutrin Xl - PO 150 mg DAILY BHARAT Administration Clonazepam 1 mg 03/16/17 10:00 03/17/17 10:34 Klonopin - PO 1 mg BID BHARAT Administration Divalproex Sodium 500 mg 03/16/17 10:00 03/17/17 10:34 Depakote - PO 500 mg BID BHARAT Administration Divalproex Sodium 250 mg 03/16/17 22:00 03/16/17 22:19 Depakote - PO 250 mg HS BHARAT Administration Docusate Sodium 300 mg 03/16/17 22:00 03/16/17 22:19 Colace - PO 300 mg HS BHARAT Administration Ferrous Sulfate 325 mg 03/16/17 10:00 03/17/17 10:34 Feosol - PO 325 mg DAILY BHARAT Administration Fluoxetine HCl 40 mg 03/16/17 10:00 03/17/17 10:34 Prozac - PO 40 mg DAILY BHARAT Administration Insulin Aspart 1 vial 03/16/17 07:00 03/17/17 11:12 Novolog Vial Sliding Scale - SQ Not Given ACHS BHARAT Protocol Morphine Sulfate 30 mg 03/16/17 22:13 03/17/17 11:57 Ms Contin - PO 30 mg Q6HPO BHARAT Administration Pantoprazole Sodium 40 mg 03/16/17 10:00 03/17/17 10:34 Protonix - PO 40 mg DAILY BHARAT Administration Polyethylene Glycol 17 gm 03/16/17 10:00 03/17/17 10:48 Miralax (For Daily Use) - PO Not Given DAILY BHARAT Quetiapine Fumarate 400 mg 03/16/17 22:00 03/16/17 22:18 Seroquel - PO 400 mg HS BHARAT Administration Senna 2 tab 03/16/17 22:00 03/16/17 22:18 Senna - PO 2 tab HS BHARAT Administration ASSESSMENT/PLAN: #R/O CVA: -slurred speech, reduced sensation on L side of face -No acute infarction seen on CT scan w/o contrast -EKG-no acute JUSTYNA/STD or TWI -Hardware in back according to patient from surgery in 2009, so cannot do MRI -Aspirin allergic -continue home eliquis 5 mg bid -Continous cardiac monitoring -Speech and swallow evaluation -Physical therapy -Carotid doppler shows minimal atherosclerotic vessels -Atorvostatin 20mg HS - Echo 2015: unremarkable -FU utox -FU neuro reccs #Chest pain -Recent cocaine use -Utox pending -negative trops -normal EKG -Continuous cardiac monitoring -BB held -Will monitor #Chronic back pain -On chronic pain meds s/p back surgery -Continue home morphine for pain control - will monitor #Polysubstance durg use -admits to crack/cocaine -BB held -counseling #HTN -Hold Metoprolol -Hold hydralazine -Hold lasix #Bipolar disease -Continue Quetiapine -Continue prozac -follow up psyche #COPD/Asthma -Continue spiriva -Continue Symbicort # PUD -Continue Pantoprazole #CAD -Continue eliquis -Hold Metoprolol -Hold hydralazine -Hold lasix #DM -Hold metformin -ISS -BGMs #History of CVA - cont Depakoate #DVT prophylaxis -Continue Eliquis #FEN -BMP -Monitor electrolytes -Replete as needed Visit type - Emergency Visit Emergency Visit: Yes ED Registration Date: 03/15/17 Care time: The patient presented to the Emergency Department on the above date and was hospitalized for further evaluation of their emergent condition. - New Patient This patient is new to me today: No - Critical Care Critical Care patient: No
--- NOTE | 2017-03-17 16:50 | PN ---
Teaching Attending Note Name of Resident: Olegario Ybarra ATTENDING PHYSICIAN STATEMENT I saw and evaluated the patient. I reviewed the resident's note and discussed the case with the resident. I agree with the resident's findings and plan as documented. SUBJECTIVE: OBJECTIVE: ASSESSMENT AND PLAN: patient is still complaining of itching MRI didnt show any acute stroke will keep jake patient on 1:1 psych evaluation c/w same medical management metoprolol was held due to cocaine use may consider carvidilol with alpha blockade or diltiazem if required but after cardiology consult
[2017-03-17] MEDS: DOCUSATE SODIUM 100 MG CAPSULE (FP) PO SCH (21:56)
[2017-03-17] MEDS: SENNOSIDES 8.6MG TABLET (FP) PO SCH (21:56)
[2017-03-17] MEDS: QUEtiapine FUMARATE 200 MG TABLET PO SCH (21:56)
[2017-03-17] MEDS: DIVALPROEX SODIUM 250 MG TABLET E.C. (FP) PO SCH (21:56)
[2017-03-17] MEDS: ATORVASTATIN CA 20 MG TABLET (FP) PO SCH (21:56)
[2017-03-18] MEDS: BENZTROPINE MESYLATE 0.5 MG TABLET (FP) PO SCH ×3 (01:17→21:02)
[2017-03-18] MEDS: APIXABAN 5 MG TABLET PO SCH ×3 (01:17→21:02)
[2017-03-18] MEDS: DIVALPROEX SODIUM 500 MG TABLET E.C. PO SCH ×3 (01:17→21:02)
[2017-03-18] MEDS: INSULIN SLIDING SCALE (NOVOLOG) 1 VIAL SQ SCH ×5 (01:39→21:51)
[2017-03-18] MEDS: morphine SO4 SUSTAINED ACTING 15 MG TABLET.SA PO SCH ×5 (01:40→23:21)
[2017-03-18] MEDS ORDERED: clonazePAM 0.5 MG TABLET ONE (02:46)
[2017-03-18] MEDS: clonazePAM 0.5 MG TABLET PO SCH ×3 (02:48→21:01)
--- NOTE | 2017-03-18 09:41 | CONSULT ---
Admitting History and Physical - Primary Care Physician PCP: Luther Moreno - Admission History of Present Illness: 51 yr f with PMHx of CAD, MD, CVA, Asthma, COPD, Bipolar disorder, HTN, HLD, Hypothyroidism, DM, morbid obesity, cocaine use, PUD, PTSD, migraines, presenting with slurred speech and weakness of the L side of her face. No acute infarction seen on CT scan w/o contrast or MRI. Microvascular changes noted. Pt c/o itchiness, scratching herself frequently. 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 No: Alzheimer's, Dementia, Multiple Sclerosis, Peripheral Neuropathy, Parkinson's, Seizure, Syncope, Vertigo, Other Cardiovascular: Yes: CAD, HTN, Hyperlipdemia, MD (x3 per pt) Pulmonary: Yes: Asthma, Sleep Apnea. No: Bronchitis, Cancer, COPD, O2 Dependent , Pneumonia, Previously Intubated, Pulmonary Embolus, Pulmonary Fibrosis, Other Gastrointestinal: Yes: Peptic Ulcer Disease. No: Ascites, Cancer, Constipation , Crohn's Disease, Diverticulitis, Diverticulosis, Esophageal Varices, Gastritis , GERD, GI Bleed, Hemorrhoids, Hiatal Hernia, Inflamatory Bowel Disease, Irritable Bowel Disease, Pancreatitis, Ulcerative Colitis, Other Psych: Yes: Addictions (cocaine abuse in past, clean since 2012), Depression, Other (Bipolar disorder) Musculoskeletal: Yes: Chronic low back pain Endocrine: Yes: Diabetes Mellitus, Other (Morbid Obesity) - Smoking History Smoking history: Unknown if ever smoked Have you smoked in the past 12 months: No Aproximately how many cigarettes per day: 3 If you are a former smoker, when did you quit?: 09/18/14 - Alcohol/Substance Use Hx Alcohol Use: No History of Substance Use: reports: Cocaine - Social History History of Recent Travel: No History - Admission Reason For Visit: CEREBROVASCULAR ACCIDENT (CVA) - Diagnostics CT Scan: Report Reviewed MRI: Report Reviewed (No acute infarct.Microvascular changes noted) - General Mental Status: Alert and Oriented, Awake and Alert, Able to Follow Commands Attention: Distractible, Mild Impairment Ability to Follow Directions: Good Head/Neck Control: WFL - Hearing Hearing: Normal Speech Evaluation - Communication Primary Language: ARABIC Oral Expression Ability: Yes: Mild Impairment, Moderate Impairment - Speech Production Apraxia: Yes Able to Make Needs Known: Yes: Mildly Impaired Intelligibility: Yes: Mildly Impaired, Moderately Impaired - Speech Characteristics Voice Loudness: Normal Voice Pitch: Yes: Normal Voice Phonatory-based Quality: Yes: Normal Speech Pattern: Impaired Speech Clarity: < 50% Nasal Resonance: Normal Articulation: Yes: Imprecise Rate of Speech: Too Fast - Language/Auditory Comprehension Follows: Yes: 1 Stage Simple Commands Observation: Able to respond to yes/no queries: Yes, Yes/No Confusion: No, Comprehends Conversational Speech: Yes - Language/Verbal Expression Able to Respond to Simple Queries: Yes: WNL Able to Communicate Wants and Needs: Yes: WNL Functional Communication Status: Yes: WNL - Swallow Evaluation/Bedside Assessment Current Nutritional Intake: Regular, Thin Liquids Oral Secretions: Yes: WFL Dentition: Yes: Edentulous Facial Symmetry at Rest: Facial Droop Left Facial Symmetry on Retraction: Symmetrical Against Resistance Opening: Normal Against Resistance Closing: Normal Pucker Lips: Normal Smile: Normal Lingual Movement: Symmetric Lingual Speed of Movement: Normal Lingual Movement Strgth Against Opposition: Normal Lingual Movement Characteristics: Normal Velopharyngeal Movement: Normal Laryngeal Elevation: WFL Laryngeal Movement: Able to Palpate Rate of Intake: WFL Bolus Size: WFL Labial Seal: WFL Chewing: WFL (edentulous) Oral Prep Time: WFL A-P Transit: WFL Pocketing: None Timing of Swallow: WFL Coughing/Throat Clear: No Change in Voice: No Recommendations - Speech Evaluation, Impression/Plan Impression: Pt with left facial weakness at rest. Speech is fairly precise and intelligible on 1-2 syllable level, but breaks down with multisyllabic words and phrases/sentennces, with imprecise articulation and rapid rate. Apraxia? Language grossly intact. Oriented. Swallowing overtly intact. Pt is edentulous , adversely affecting efficiency of mastication. - Dysphagia Impressions/Plan Dysphagia Impressions: Mild Impairment *Silent aspiration: cannot be R/O at bedside Dysphagia Treatment Plan: Safe Rate, Elevate HOB during feed - Recommendations Diet Consistency: Regular (Soft, consider chopped meats.) Medication Administration: Whole with water Liquids: Thin Liquids
--- NOTE | 2017-03-18 10:14 | PN ---
Progress Note (short form) - Note Progress Note: Neurology History of Present Illness The patient is a 51 year old female, with a significant past medical history of CAD, ND(x3), anemia, CVA(x3), TIA(w/ residual left sided weakness), asthma, COPD , bipolar disorder, hypertension, hyperlipidemia, hypothyroidism, morbid obesity , diabetes mellitus, hypertension, schizophrenia who presented to the emergency department with numbness and tingling to the left face/extremities with associated weakness and slurred speech. She was not in TPA window. CT head was without acute changes. Admitted for further CVA workup and MRI brain without acute changes. Carotid Dopplers completed and reviewed and without hemodynamically significant stenosis. Active Medications Albuterol Sulfate (Ventolin Hfa Inhaler -) 2 puff IH DAILY [facility] Last Admin: 03/17/17 10:48 Dose: 2 puff Apixaban (Eliquis -) 5 mg PO BID [facility] Last Admin: 03/18/17 01:17 Dose: 5 mg Atorvastatin Calcium (Lipitor -) 20 mg PO HS [facility] Last Admin: 03/17/17 21:56 Dose: 20 mg Benztropine Mesylate (Cogentin -) 0.5 mg PO BID [facility] Last Admin: 03/18/17 01:17 Dose: 0.5 mg Budesonide/Formoterol Fumarate (Symbicort 80/4.5mcg -) 1 puff IH DAILY [facility] Last Admin: 03/17/17 10:47 Dose: 1 puff Bupropion HCl (Wellbutrin Xl -) 150 mg PO DAILY [facility] Last Admin: 03/17/17 10:34 Dose: 150 mg Clonazepam (Klonopin -) 1 mg PO BID [facility] Last Admin: 03/18/17 02:48 Dose: 1 mg Divalproex Sodium (Depakote -) 500 mg PO BID [facility] Last Admin: 03/18/17 01:17 Dose: 500 mg Divalproex Sodium (Depakote -) 250 mg PO HS [facility] Last Admin: 03/17/17 21:56 Dose: 250 mg Docusate Sodium (Colace -) 300 mg PO HS [facility] Last Admin: 03/17/17 21:56 Dose: 300 mg Ferrous Sulfate (Feosol -) 325 mg PO DAILY [facility] Last Admin: 03/17/17 10:34 Dose: 325 mg Fluoxetine HCl (Prozac -) 40 mg PO DAILY [facility] Last Admin: 03/17/17 10:34 Dose: 40 mg Insulin Aspart (Novolog Vial Sliding Scale -) 1 vial SQ ACHS [facility] PRN Reason: Protocol Last Admin: 03/18/17 08:43 Dose: Not Given Morphine Sulfate (Ms Contin -) 30 mg PO Q6HPO [facility] Last Admin: 03/18/17 07:46 Dose: Not Given Pantoprazole Sodium (Protonix -) 40 mg PO DAILY [facility] Last Admin: 03/17/17 10:34 Dose: 40 mg Polyethylene Glycol (Miralax (For Daily Use) -) 17 gm PO DAILY [facility] Last Admin: 03/17/17 10:48 Dose: Not Given Quetiapine Fumarate (Seroquel -) 400 mg PO HS [facility] Last Admin: 03/17/17 21:56 Dose: 400 mg Senna (Senna -) 2 tab PO [facility] Last Admin: 03/17/17 21:56 Dose: 2 tab *Physical Exam Vital Signs Temperature 98.4 F 03/17/17 19:47 Pulse Rate 98 H 03/18/17 08:00 Respiratory Rate 20 03/18/17 08:00 Blood Pressure 109/70 03/18/17 08:00 O2 Sat by Pulse Oximetry (%) 99 03/17/17 23:50 GENERAL: Awake, alert, and oriented to place and time, in no acute distress HEAD: No signs of trauma EYES: PERRLA, EOMI, sclera anicteric, conjunctiva clear ENT: Auricles normal inspection, hearing grossly normal, nares patent, oropharynx clear without exudates. Moist mucosa NECK: Normal ROM, supple, no lymphadenopathy, JVD, or masses LUNGS: Breath sounds equal, clear to auscultation bilaterally. No wheezes, and no crackles HEART: Regular rate and rhythm, normal S1 and S2, no murmurs, rubs or gallops ABDOMEN: Periumbilical tenderness. Soft, normoactive bowel sounds. No guarding, no rebound. No masses EXTREMITIES: Normal range of motion, no edema. No clubbing or cyanosis. No cords, erythema, or tenderness NEUROLOGICAL: Stuttered/slurred speech. Decreased sensation to the left face, but no left facial droop or weakness. Decreased sensation to the left arm and left leg with ? muscle strength. Right upper and lower extremities 5/5 strength and sensation SKIN: Warm, Dry, normal turgor, no rashes or lesions noted. CBCD WBC 11.4 K/mm3 (4.0-10.0) H 03/17/17 08:22 RBC 4.89 M/mm3 (3.60-5.2) 03/17/17 08:22 Hgb 13.4 GM/dL (10.7-15.3) D 03/17/17 08:22 Hct 39.9 % (32.4-45.2) 03/17/17 08:22 MCV 81.5 fl (80-96) 03/17/17 08:22 MCHC 33.7 g/dl (32.0-36.0) 03/17/17 08:22 RDW 16.6 % (11.6-15.6) H 03/17/17 08:22 Plt Count 192 K/MM3 (134-434) 03/17/17 08:22 MPV 11.2 fl (7.5-11.1) H D 03/17/17 08:22 CMP Sodium 139 mmol/L (136-145) 03/17/17 08:22 Potassium 4.0 mmol/L (3.5-5.1) 03/17/17 08:22 Chloride 102 mmol/L (98-107) 03/17/17 08:22 Carbon Dioxide 29 mmol/L (21-32) D 03/17/17 08:22 Anion Gap 8 (8-16) 03/17/17 08:22 BUN 20 mg/dL (7-18) H D 03/17/17 08:22 Creatinine 1.4 mg/dL (0.55-1.02) H 03/17/17 08:22 Creat Clearance w eGFR 39.80 (>60) 03/17/17 08:22 Calcium 9.4 mg/dL (8.5-10.1) 03/17/17 08:22 Total Bilirubin 0.3 mg/dL (0.2-1.0) 03/17/17 08:22 AST 12 U/L (15-37) L 03/17/17 08:22 ALT 22 U/L (12-78) 03/17/17 08:22 Alkaline Phosphatase 106 U/L (45-117) 03/17/17 08:22 Total Protein 8.0 g/dl (6.4-8.2) 03/17/17 08:22 Albumin 3.8 g/dl (3.4-5.0) 03/17/17 08:22 CT head reviewed MRI brain reviewed PLan: 51 year old female, with a significant past medical history of CAD, ND(x3), anemia, CVA(x3), TIA(w/ residual left sided weakness), asthma, COPD, bipolar disorder, hypertension, hyperlipidemia, hypothyroidism, morbid obesity, diabetes mellitus, hypertension, schizophrenia who presents to the emergency department with numbness and tingling to the left face/extremities with associated weakness and slurred speech. The patient reported she was last well night before admission at 23:00 before she went to bed. Patient states when she woke up this morning at around 07:30 she began to develop numbness and tingling on the left side of her body. Patient reports going to bed again, but when she woke up around 14:30 she noted increased slurred speech, which is not part of the baseline. She was not in TPA window. CT head was without acute changes. Admitted for further CVA workup. -MRI brain reviewed , no acute changes -ASA 81mg -Check LDL, statin -BP monitoring, goal < 160/90 -Tight glycemic control, continue metformin, -Monitor mental status, has h/o bipolar -PT/OT/Speech therapy -DVT ppx
[2017-03-18] MEDS: ALBUTEROL SO4 18 GM HFA INHALER IH SCH (10:52)
[2017-03-18] MEDS: FERROUS SO4 325 MG TABLET (FP) PO SCH (10:52)
[2017-03-18] MEDS: PANTOPRAZOLE 40 MG TABLET (FP) PO SCH (10:52)
[2017-03-18] MEDS: BUDESONIDE/FORMETEROL FUMARATE 80/4.5 mcg INHALER IH SCH (11:09)
[2017-03-18] MEDS: FLUoxetine HCL 20 MG CAPSULE (FP) PO SCH (11:22)
[2017-03-18] MEDS ORDERED: HEMOQUE TEST 1 EACH EACH ONE ×2 (11:42→17:24)
[2017-03-18] MEDS: POLYETHYLENE GLYCOL 3350 119 GM BTL PO SCH (11:48)
--- NOTE | 2017-03-18 13:57 | PN ---
Teaching Attending Note Name of Resident: Olegario Ybarra ATTENDING PHYSICIAN STATEMENT I saw and evaluated the patient. I reviewed the resident's note and discussed the case with the resident. I agree with the resident's findings and plan as documented. SUBJECTIVE: No acute events She is alert and cooperative Per RN - ambulated with assistance Eats her meals No complaints No suicidal ideation Refused BG monitoring Active Medications Albuterol Sulfate (Ventolin Hfa Inhaler -) 2 puff IH DAILY [facility] Last Admin: 03/18/17 10:52 Dose: Not Given Apixaban (Eliquis -) 5 mg PO BID [facility] Last Admin: 03/18/17 11:21 Dose: 5 mg Atorvastatin Calcium (Lipitor -) 20 mg PO HS [facility] Last Admin: 03/17/17 21:56 Dose: 20 mg Benztropine Mesylate (Cogentin -) 0.5 mg PO BID [facility] Last Admin: 03/18/17 11:22 Dose: 0.5 mg Budesonide/Formoterol Fumarate (Symbicort 80/4.5mcg -) 1 puff IH DAILY [facility] Last Admin: 03/18/17 11:09 Dose: Not Given Bupropion HCl (Wellbutrin Xl -) 150 mg PO DAILY [facility] Last Admin: 03/18/17 11:21 Dose: 150 mg Clonazepam (Klonopin -) 1 mg PO BID [facility] Last Admin: 03/18/17 10:51 Dose: 1 mg Divalproex Sodium (Depakote -) 500 mg PO BID [facility] Last Admin: 03/18/17 11:21 Dose: 500 mg Divalproex Sodium (Depakote -) 250 mg PO HS [facility] Last Admin: 03/17/17 21:56 Dose: 250 mg Docusate Sodium (Colace -) 300 mg PO HS [facility] Last Admin: 03/17/17 21:56 Dose: 300 mg Ferrous Sulfate (Feosol -) 325 mg PO DAILY [facility] Last Admin: 03/18/17 10:52 Dose: 325 mg Fluoxetine HCl (Prozac -) 40 mg PO DAILY [facility] Last Admin: 03/18/17 11:22 Dose: 40 mg Insulin Aspart (Novolog Vial Sliding Scale -) 1 vial SQ ACHS [facility] PRN Reason: Protocol Last Admin: 03/18/17 11:48 Dose: Not Given Morphine Sulfate (Ms Contin -) 30 mg PO Q6HPO [facility] Last Admin: 03/18/17 11:30 Dose: 30 mg Pantoprazole Sodium (Protonix -) 40 mg PO DAILY [facility] Last Admin: 03/18/17 10:52 Dose: 40 mg Polyethylene Glycol (Miralax (For Daily Use) -) 17 gm PO DAILY [facility] Last Admin: 03/18/17 11:48 Dose: Not Given Quetiapine Fumarate (Seroquel -) 400 mg PO [facility] Last Admin: 03/17/17 21:56 Dose: 400 mg Senna (Senna -) 2 tab PO [facility] Last Admin: 03/17/17 21:56 Dose: 2 tab OBJECTIVE: Vital Signs Temperature 98.4 F 03/17/17 19:47 Pulse Rate 98 H 03/18/17 08:00 Respiratory Rate 20 03/18/17 12:55 Blood Pressure 109/70 03/18/17 08:00 O2 Sat by Pulse Oximetry (%) 99 03/18/17 12:55 LUNGS: Breath sounds equal, clear to auscultation bilaterally. No wheezes, and no crackles HEART: Regular rate and rhythm, normal S1 and S2, no murmurs, rubs or gallops ABDOMEN: Periumbilical tenderness. Soft, normoactive bowel sounds. No guarding, no rebound. No masses EXTREMITIES: Normal range of motion, no edema. No clubbing or cyanosis. No cords, erythema, or tenderness NEUROLOGICAL: Stuttered/slurred speech. Decreased sensation to the left face, but no left facial droop or weakness. Decreased sensation to the left arm and left muscle strength is intact . Right upper and lower extremities 5/5 strength and sensation SKIN: Warm, Dry, normal turgor CBC, BMP 03/17/17 08:22 03/17/17 08:22 ASSESSMENT AND PLAN: 1. Suspected CVA - ruled out . Presented with numbness and tingling to the left face/extremities with associated weakness and slurred speech. She was not in TPA window. CT head was without acute changes. Admitted for further CVA workup and MRI brain was without acute changes. Carotid Dopplers completed and reviewed and are without hemodynamically significant stenosis. Has multiple risk factors for CVA and at this point will continue with risk factor modifications. She is on Eliquis for DVT therefore not on ASA and Plavix 2. History of bipolar disorder , polysubstance abuse - no need for direct observation - c/w wellbutrin, seroquel, prozac 3. History of CAD- no chest pain now , metoprolol was held due to cocaine use. No acute changes on EKG 4. Self reported history of DVT - Eliquis was reinstated on this admission however it is unclear if DVT was provoked and if yes - wether she already completed the treatment . Patient is a poor historian and unable to clarify . 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
--- NOTE | 2017-03-18 16:44 | PN ---
Physical Exam: SUBJECTIVE: Patient seen and examined No new c/o. Seen eating in bed. Tolerating well. OBJECTIVE: Vital Signs Period Temp Pulse Resp BP Sys/Schultz Pulse Ox Last 24 Hr 98.4 F 92-104 16-20 106-134/52-73 18-99 GENERAL: The patient is awake, alert, in no acute distress. EYES: PERRL, extraocular movements intact, sclera anicteric, conjunctiva clear. ENT: moist mucous membranes. Edentulous. LUNGS: Breath sounds equal, clear to auscultation bilaterally, no wheezes, no crackles, no accessory muscle use. HEART: Regular rate and rhythm, S1, S2 without murmur, rub or gallop. ABDOMEN: Obese, Soft, nontender, nondistended, normoactive bowel sounds, EXTREMITIES: 2+ pulses, warm, well-perfused, no edema. Bilaterally mildly swollen tender knees. No visible tremors. NEUROLOGICAL: No facial droop. Decreased sensation to face on L and upper and lower limb on L. Tongue and uvula not deviated. Normal power, tone and reflexes UL bilaterally. Power 5/5 R LE and 5/5 LLE. Abnormal speech (absent teeth), gait not observed. PSYCH: Normal mood, normal affect. Laboratory Results - last 24 hr 03/16/17 03/17/17 03/17/17 22:30 05:57 11:10 POC Glucometer 134.48013 163.67815 141.27212 03/17/17 03/18/17 16:25 01:36 POC Glucometer 104.34946 129.55269 Active Medications Generic Name Dose Route Start Last Admin Trade Name Winston PRN Reason Stop Dose Admin Albuterol Sulfate 2 puff 03/16/17 10:00 03/18/17 10:52 Ventolin Hfa Inhaler - IH Not Given DAILY [facility] Apixaban 5 mg 03/16/17 10:00 03/18/17 11:21 Eliquis - PO 5 mg BID [facility] Administration Atorvastatin Calcium 20 mg 03/16/17 22:00 03/17/17 21:56 Lipitor - PO 20 mg HS [facility] Administration Benztropine Mesylate 0.5 mg 03/16/17 10:00 03/18/17 11:22 Cogentin - PO 0.5 mg BID [facility] Administration Budesonide/Formoterol Fumarate 1 puff 03/16/17 10:00 03/18/17 11:09 Symbicort 80/4.5mcg - IH Not Given DAILY [facility] Bupropion HCl 150 mg 03/16/17 10:00 03/18/17 11:21 Wellbutrin Xl - PO 150 mg DAILY [facility] Administration Clonazepam 1 mg 03/16/17 10:00 03/18/17 10:51 Klonopin - PO 1 mg BID [facility] Administration Divalproex Sodium 500 mg 03/16/17 10:00 03/18/17 11:21 Depakote - PO 500 mg BID [facility] Administration Divalproex Sodium 250 mg 03/16/17 22:00 03/17/17 21:56 Depakote - PO 250 mg HS [facility] Administration Docusate Sodium 300 mg 03/16/17 22:00 03/17/17 21:56 Colace - PO 300 mg HS [facility] Administration Ferrous Sulfate 325 mg 03/16/17 10:00 03/18/17 10:52 Feosol - PO 325 mg DAILY [facility] Administration Fluoxetine HCl 40 mg 03/16/17 10:00 03/18/17 11:22 Prozac - PO 40 mg DAILY [facility] Administration Insulin Aspart 1 vial 03/16/17 07:00 03/18/17 11:48 Novolog Vial Sliding Scale - SQ Not Given ACHS [facility] Protocol Morphine Sulfate 30 mg 03/16/17 22:13 03/18/17 11:30 Ms Contin - PO 30 mg Q6HPO [facility] Administration Pantoprazole Sodium 40 mg 03/16/17 10:00 03/18/17 10:52 Protonix - PO 40 mg DAILY [facility] Administration Polyethylene Glycol 17 gm 03/16/17 10:00 03/18/17 11:48 Miralax (For Daily Use) - PO Not Given DAILY [facility] Quetiapine Fumarate 400 mg 03/16/17 22:00 03/17/17 21:56 Seroquel - PO 400 mg HS [facility] Administration Senna 2 tab 03/16/17 22:00 03/17/17 21:56 Senna - PO 2 tab HS [facility] Administration ASSESSMENT/PLAN: 51 yr f with PMHx of CAD, [place], CVA, Asthma, COPD, Bipolar disorder, HTN, HLD, Hypothyroidism, DM, morbid obesity, cocaine use, PUD, PTSD, migraines, presenting with slurred speech and weakness of the L side of her face. #CVA: Ruled out No acute infarction seen on CT scan w/o contrast or on MRI EKG-Normal EKG, no acute JUSTYNA/STD or TWI Past window for TPA Patient is allergic to ASA (SOB) so can not take ASA Is on eliquis from home- continue eliquis 5 mg bid Discontinue continous cardiac monitoring Speech and swallow evaluation Neuro consult- Dr Rodriguez- reviewed Physical therapy- ambulates with walker Carotid dopplers- no evidence of significant stenosis Atorvostatin 20mg HS #Chest pain: Has had chronic chest pain, No SOB, normal EKG Recent cocaine use, Hold B blockers Reproducible epigastric pain Trops- negative No abnormality detected on continous cardiac monitoring- discontinue cardiac monitoring #Chronic back pain On chronic pain meds s/p back surgery Is on home morphine PO- continue #Continous drug use disorder Patient is using crack cocaine Counseling Hold B blockers monitor #Obstructive Sleep apnea CPAP #Current smoker Application Support Analyst Nicotine patch offered #HTN Currently hypotensive in setting of likely CVA Hold Metoprolol Resume hydralazine Resume lasix #Bipolar disease Continue Quetiapine Continue prozac #COPD/Asthma Continue spiriva Continue Symbicort # PUD Continue Pantoprazole 40mg daily #CAD- stable for now Normal EKG Trops-negative Continue eliquis Hold Metoprolol Continue hydralazine Continue lasix 40mg daily #DM Resume metformin 500mg bid Discontinue ISS, BGMs #Previous CVA Depakoate 250mg HS #Previous DVT Unclear when it was diagnosed and if she completed treatment Patient is restarted on eliquis, for likely change to plavix/ ASA (if she can tolerate) in future if eliquis is stopped Patient may resume all her medications except Metoprolol which is being held in the setting of continuous cocaine use. Visit type - Emergency Visit Emergency Visit: Yes ED Registration Date: 03/15/17 Care time: The patient presented to the Emergency Department on the above date and was hospitalized for further evaluation of their emergent condition. - New Patient This patient is new to me today: No - Critical Care Critical Care patient: No - Discharge Referral Referred to [facility] No
--- NOTE | 2017-03-18 18:42 | CON.PSY ---
Psychiatry Consult Chief Complaint: I am ok now. Symptoms: reports: Irritability, Disorganized/Disruptive Thoughts - Previous Psychiatric Treatment Outpatient: Less than 6 mos ago Inpatient: One prior admission - Previous Substance Abuse Treatment Outpatient: None - Reason for Previous Treatment Reason for Previous Treatment: Biploar Illness, Cocaine - Current Medications Current Medications: Active Medications Albuterol Sulfate (Ventolin Hfa Inhaler -) 2 puff IH DAILY [facility] Last Admin: 03/18/17 10:52 Dose: Not Given Apixaban (Eliquis -) 5 mg PO BID [facility] Last Admin: 03/18/17 11:21 Dose: 5 mg Atorvastatin Calcium (Lipitor -) 20 mg PO HS [facility] Last Admin: 03/17/17 21:56 Dose: 20 mg Benztropine Mesylate (Cogentin -) 0.5 mg PO BID [facility] Last Admin: 03/18/17 11:22 Dose: 0.5 mg Budesonide/Formoterol Fumarate (Symbicort 80/4.5mcg -) 1 puff IH DAILY [facility] Last Admin: 03/18/17 11:09 Dose: Not Given Bupropion HCl (Wellbutrin Xl -) 150 mg PO DAILY [facility] Last Admin: 03/18/17 11:21 Dose: 150 mg Clonazepam (Klonopin -) 1 mg PO BID [facility] Last Admin: 03/18/17 10:51 Dose: 1 mg Divalproex Sodium (Depakote -) 500 mg PO BID [facility] Last Admin: 03/18/17 11:21 Dose: 500 mg Divalproex Sodium (Depakote -) 250 mg PO HS [facility] Last Admin: 03/17/17 21:56 Dose: 250 mg Docusate Sodium (Colace -) 300 mg PO HS [facility] Last Admin: 03/17/17 21:56 Dose: 300 mg Ferrous Sulfate (Feosol -) 325 mg PO DAILY [facility] Last Admin: 03/18/17 10:52 Dose: 325 mg Fluoxetine HCl (Prozac -) 40 mg PO DAILY [facility] Last Admin: 03/18/17 11:22 Dose: 40 mg Insulin Aspart (Novolog Vial Sliding Scale -) 1 vial SQ ACHS [facility] PRN Reason: Protocol Last Admin: 03/18/17 17:50 Dose: Not Given Morphine Sulfate (Ms Contin -) 30 mg PO Q6HPO [facility] Last Admin: 03/18/17 17:49 Dose: 30 mg Pantoprazole Sodium (Protonix -) 40 mg PO DAILY [facility] Last Admin: 03/18/17 10:52 Dose: 40 mg Polyethylene Glycol (Miralax (For Daily Use) -) 17 gm PO DAILY [facility] Last Admin: 03/18/17 11:48 Dose: Not Given Quetiapine Fumarate (Seroquel -) 400 mg PO [facility] Last Admin: 03/17/17 21:56 Dose: 400 mg Senna (Senna -) 2 tab PO [facility] Last Admin: 03/17/17 21:56 Dose: 2 tab - Allergies Allergies: Allergies Allergy/AdvReac Type Severity Reaction Status Date / Time hydromorphone HCl Allergy Intermediate Itching Verified 03/15/17 16:53 [From Dilaudid] amoxicillin [Amoxicillin] Allergy Verified 03/15/17 16:53 ampicillin Allergy Verified 03/15/17 16:53 aspirin Allergy Difficulty Verified 03/16/17 02:03 Breathing cranberry Allergy Rash Verified 03/16/17 02:03 doxycycline Allergy Rash Verified 03/16/17 02:03 Fish Containing Products Allergy Difficulty Verified 03/15/17 16:53 Breathing haloperidol [From Haldol] Allergy Rash Verified 03/16/17 02:03 haloperidol lactate Allergy Rash Verified 03/16/17 02:03 [From Haldol] ibuprofen [From Motrin] Allergy Difficulty Verified 03/16/17 02:03 Breathing ketorolac tromethamine Allergy Rash Verified 03/16/17 02:03 [From Toradol] levofloxacin [From Levaquin] Allergy Rash Verified 03/16/17 02:03 milk Allergy Difficulty Verified 03/15/17 16:53 Breathing oxycodone HCl [From Percocet] Allergy Rash Verified 03/16/17 02:03 Penicillins Allergy Difficulty Verified 03/16/17 02:03 Breathing sulfamethoxazole Allergy Rash Verified 03/16/17 02:03 [From Bactrim] tomato [Tomato] Allergy Hives Verified 03/15/17 16:53 trimethoprim [From Bactrim] Allergy Verified 03/15/17 16:53 warfarin sodium Allergy Verified 03/15/17 16:53 [From Coumadin] Gravy Allergy Unknown Uncoded 03/15/17 16:53 Cranberry/Cranberry juice Allergy Uncoded 03/15/17 16:53 - Current Living Status Usual Living Arrangement: Residential - Current Mental Status Evaluation Appearance: Disheveled Attitude: Guarded - Affect Affect: Constrictive Appropriateness: Appropriate to Content - Mood Mood: Irritable - Speech/Language Expressive: Coherent - Psychomotor Activity Psychomotor Activity: Hyperactive - Thought Process Thought Process: Circumstantial - Thought Content Hallucinations: Absent Delusions: Absent - Self Perception Self Perception: No Impairment - Cognition Attention: Alert Orientation: Time Memory, Immediate Recall: Intact Memory, Short Term: 2/3 Memory, Remote with Promptin/3 - Concentration Serial Sevens Intact: No Simple Calculations Intact: No - Abstraction Proverb Interpretation: Intact Judgement: Minimally Impaired - Insight Insight: Impaired - Impulse Control Impulse Control: Minimally Impaired - Suicidal Ideation Suicidal Ideation: No - Homicidal Ideation Homicidal Ideation: No Assessment/Plan 1) Patient is Psychatrically stable. 2) Return to N Home.
[2017-03-18] MEDS ORDERED: diphenhydrAMINE HCL 25 MG CAPSULE (FP) PO ONE (20:38)
[2017-03-18] MEDS: DIVALPROEX SODIUM 250 MG TABLET E.C. (FP) PO SCH (21:01)
[2017-03-18] MEDS: ATORVASTATIN CA 20 MG TABLET (FP) PO SCH (21:01)
[2017-03-18] MEDS: DOCUSATE SODIUM 100 MG CAPSULE (FP) PO SCH (21:01)
[2017-03-18] MEDS: SENNOSIDES 8.6MG TABLET (FP) PO SCH (21:01)
[2017-03-18] MEDS: QUEtiapine FUMARATE 200 MG TABLET PO SCH (21:43)
[2017-03-19] MEDS: morphine SO4 SUSTAINED ACTING 15 MG TABLET.SA PO SCH ×2 (05:49)
[2017-03-19 05:55] VITALS: TEMP 98
[2017-03-19] MEDS: INSULIN SLIDING SCALE (NOVOLOG) 1 VIAL SQ SCH (06:09)
[2017-03-19 06:35] LABS: ALBUMIN 3.5 g/dl (3.4-5.0); ANION GAP 8 (8-16); CALCIUM 8.9 mg/dL (8.5-10.1); CO2 30 mmol/L (21-32); GLUCOSE,RANDOM 93 mg/dL (74-106); SGOT/AST 9 U/L (15-37); SGPT/ALT 18 U/L (12-78)
[2017-03-19 06:37] LABS: ALK PHOS 87 U/L (45-117); BILIRUBIN,TOTAL 0.3 mg/dL (0.2-1.0); TOT PROT 6.9 g/dl (6.4-8.2)
[2017-03-19] MEDS ORDERED: PT OWN MED DRAWER 7, Y5N ONE (08:00)
[2017-03-19] MEDS: clonazePAM 0.5 MG TABLET PO SCH (09:10)
[2017-03-19] MEDS: FLUoxetine HCL 20 MG CAPSULE (FP) PO SCH (09:11)
[2017-03-19] MEDS: APIXABAN 5 MG TABLET PO SCH (09:11)
[2017-03-19] MEDS: FERROUS SO4 325 MG TABLET (FP) PO SCH (09:11)
[2017-03-19] MEDS: BENZTROPINE MESYLATE 0.5 MG TABLET (FP) PO SCH (09:11)
[2017-03-19] MEDS: DIVALPROEX SODIUM 500 MG TABLET E.C. PO SCH (09:12)
[2017-03-19] MEDS: PANTOPRAZOLE 40 MG TABLET (FP) PO SCH (09:12)
[2017-03-19] MEDS: BUDESONIDE/FORMETEROL FUMARATE 80/4.5 mcg INHALER IH SCH (09:13)
[2017-03-19] MEDS: POLYETHYLENE GLYCOL 3350 119 GM BTL PO SCH (09:13)
--- NOTE | 2017-03-19 10:12 | PN ---
Progress Note (short form) - Note Progress Note: Neurology History of Present Illness The patient is a 51 year old female, with a significant past medical history of CAD, NV(x3), anemia, CVA(x3), TIA(w/ residual left sided weakness), asthma, COPD , bipolar disorder, hypertension, hyperlipidemia, hypothyroidism, morbid obesity , diabetes mellitus, hypertension, schizophrenia who presented to the emergency department with numbness and tingling to the left face/extremities with associated weakness and slurred speech. She was not in TPA window. CT head was without acute changes. Admitted for further CVA workup and MRI brain without acute changes. Carotid Dopplers completed and reviewed and without hemodynamically significant stenosis. Pysch consult note reviewed and deemed patient stable, recommended transfer back to [place] [facility]. Active Medications Albuterol Sulfate (Ventolin Hfa Inhaler -) 2 puff IH DAILY [facility] Last Admin: 03/18/17 10:52 Dose: Not Given Apixaban (Eliquis -) 5 mg PO BID [facility] Last Admin: 03/19/17 09:11 Dose: 5 mg Atorvastatin Calcium (Lipitor -) 20 mg PO HS [facility] Last Admin: 03/18/17 21:01 Dose: 20 mg Benztropine Mesylate (Cogentin -) 0.5 mg PO BID [facility] Last Admin: 03/19/17 09:11 Dose: 0.5 mg Budesonide/Formoterol Fumarate (Symbicort 80/4.5mcg -) 1 puff IH DAILY [facility] Last Admin: 03/19/17 09:13 Dose: Not Given Bupropion HCl (Wellbutrin Xl -) 150 mg PO DAILY [facility] Last Admin: 03/19/17 09:11 Dose: 150 mg Clonazepam (Klonopin -) 1 mg PO BID [facility] Last Admin: 03/19/17 09:10 Dose: 1 mg Divalproex Sodium (Depakote -) 500 mg PO BID [facility] Last Admin: 03/19/17 09:12 Dose: 500 mg Divalproex Sodium (Depakote -) 250 mg PO HS [facility] Last Admin: 03/18/17 21:01 Dose: 250 mg Docusate Sodium (Colace -) 300 mg PO HS [facility] Last Admin: 03/18/17 21:01 Dose: 300 mg Ferrous Sulfate (Feosol -) 325 mg PO DAILY [facility] Last Admin: 03/19/17 09:11 Dose: 325 mg Fluoxetine HCl (Prozac -) 40 mg PO DAILY [facility] Last Admin: 03/19/17 09:11 Dose: 40 mg Insulin Aspart (Novolog Vial Sliding Scale -) 1 vial SQ [facility] PRN Reason: Protocol Last Admin: 03/19/17 06:09 Dose: Not Given Morphine Sulfate (Ms Contin -) 30 mg PO Q6HPO [facility] Last Admin: 03/19/17 05:49 Dose: 30 mg Pantoprazole Sodium (Protonix -) 40 mg PO DAILY [facility] Last Admin: 03/19/17 09:12 Dose: 40 mg Polyethylene Glycol (Miralax (For Daily Use) -) 17 gm PO DAILY [facility] Last Admin: 03/19/17 09:13 Dose: Not Given Quetiapine Fumarate (Seroquel -) 400 mg PO HS [facility] Last Admin: 03/18/17 21:43 Dose: 400 mg Senna (Senna -) 2 tab PO [facility] Last Admin: 03/18/17 21:01 Dose: 2 tab *Physical Exam Vital Signs Temperature 98.0 F 03/19/17 05:54 Pulse Rate 107 H 03/19/17 05:54 Respiratory Rate 22 03/19/17 05:54 Blood Pressure 103/80 03/19/17 05:54 O2 Sat by Pulse Oximetry (%) 94 L 03/18/17 20:30 GENERAL: Awake, alert, and oriented to place and time, in no acute distress HEAD: No signs of trauma EYES: PERRLA, EOMI, sclera anicteric, conjunctiva clear ENT: Auricles normal inspection, hearing grossly normal, nares patent, oropharynx clear without exudates. Moist mucosa NECK: Normal ROM, supple, no lymphadenopathy, JVD, or masses LUNGS: Breath sounds equal, clear to auscultation bilaterally. No wheezes, and no crackles HEART: Regular rate and rhythm, normal S1 and S2, no murmurs, rubs or gallops ABDOMEN: Periumbilical tenderness. Soft, normoactive bowel sounds. No guarding, no rebound. No masses EXTREMITIES: Normal range of motion, no edema. No clubbing or cyanosis. No cords, erythema, or tenderness NEUROLOGICAL: Stuttered/slurred speech. Decreased sensation to the left face, but no left facial droop or weakness. Decreased sensation to the left arm and left leg with ? muscle strength. Right upper and lower extremities 5/5 strength and sensation SKIN: Warm, Dry, normal turgor, no rashes or lesions noted. CBCD WBC 11.4 K/mm3 (4.0-10.0) H 03/17/17 08:22 RBC 4.89 M/mm3 (3.60-5.2) 03/17/17 08:22 Hgb 13.4 GM/dL (10.7-15.3) D 03/17/17 08:22 Hct 39.9 % (32.4-45.2) 03/17/17 08:22 MCV 81.5 fl (80-96) 03/17/17 08:22 MCHC 33.7 g/dl (32.0-36.0) 03/17/17 08:22 RDW 16.6 % (11.6-15.6) H 03/17/17 08:22 Plt Count 192 K/MM3 (134-434) 03/17/17 08:22 MPV 11.2 fl (7.5-11.1) H D 03/17/17 08:22 CMP Sodium 142 mmol/L (136-145) 03/19/17 05:00 Potassium 4.4 mmol/L (3.5-5.1) 03/19/17 05:00 Chloride 104 mmol/L (98-107) 03/19/17 05:00 Carbon Dioxide 30 mmol/L (21-32) 03/19/17 05:00 Anion Gap 8 (8-16) 03/19/17 05:00 BUN 19 mg/dL (7-18) H 03/19/17 05:00 Creatinine 1.0 mg/dL (0.55-1.02) D 03/19/17 05:00 Creat Clearance w eGFR 58.69 (>60) 03/19/17 05:00 Calcium 8.9 mg/dL (8.5-10.1) 03/19/17 05:00 Total Bilirubin 0.3 mg/dL (0.2-1.0) 03/19/17 05:00 AST 9 U/L (15-37) L D 03/19/17 05:00 ALT 18 U/L (12-78) 03/19/17 05:00 Alkaline Phosphatase 87 U/L (45-117) 03/19/17 05:00 Total Protein 6.9 g/dl (6.4-8.2) 03/19/17 05:00 Albumin 3.5 g/dl (3.4-5.0) 03/19/17 05:00 CT head reviewed MRI brain reviewed PLan: 51 year old female, with a significant past medical history of CAD, NV(x3), anemia, CVA(x3), TIA(w/ residual left sided weakness), asthma, COPD, bipolar disorder, hypertension, hyperlipidemia, hypothyroidism, morbid obesity, diabetes mellitus, hypertension, schizophrenia who presents to the emergency department with numbness and tingling to the left face/extremities with associated weakness and slurred speech. The patient reported she was last well night before admission at 23:00 before she went to bed. Patient states when she woke up this morning at around 07:30 she began to develop numbness and tingling on the left side of her body. Patient reports going to bed again, but when she woke up around 14:30 she noted increased slurred speech, which is not part of the baseline. She was not in TPA window. CT head was without acute changes. Admitted for further CVA workup. -MRI brain reviewed , no acute changes -CD reviewed -Psych note appreciated -ASA 81mg -Check LDL, statin -BP monitoring, goal < 160/90 -Tight glycemic control, continue metformin, -Monitor mental status, has h/o bipolar -PT/OT/Speech therapy -DVT ppx
[2017-03-19 10:53] VITALS: BP 73/42; PULSE 18
--- NOTE | 2017-03-19 18:28 | PN ---
Teaching Attending Note Name of Resident: Maya Danielle ATTENDING PHYSICIAN STATEMENT I saw and evaluated the patient. I reviewed the resident's note and discussed the case with the resident. I agree with the resident's findings and plan as documented. SUBJECTIVE: OBJECTIVE: Vital Signs Period Temp Pulse Resp BP Sys/Schultz Pulse Ox Last 24 Hr 98.0 F-98.7 F 18-107 20-22 73-107/42-80 94-94 ASSESSMENT AND PLAN:
== END 2017-03-19 11:00 | disposition home or self-care (01) | DRG 58 ==
LOC: JER 16:49 → JERBED 21:59 → J2W 03-18 06:06
PROVIDERS: ADMIT Internal Medicine; ATTEND Internal Medicine
DX: R47.81 Slurred speech (principal); R53.1 Weakness; I25.10 Atherosclerotic heart disease of native coronary artery without angina pectoris; I25.2 Old myocardial infarction; D64.9 Anemia, unspecified; I69.854 Hemiplegia and hemiparesis following other cerebrovascular disease affecting left non-dominant side; J44.9 Chronic obstructive pulmonary disease, unspecified; F31.89 Other bipolar disorder; E11.9 Type 2 diabetes mellitus without complications; E78.5 Hyperlipidemia, unspecified; E03.9 Hypothyroidism, unspecified; I10 Essential (primary) hypertension; E66.8 Other obesity; Z68.38 Body mass index [BMI] 38.0-38.9, adult; F20.89 Other schizophrenia; R29.705 NIHSS score 5; F43.10 Post-traumatic stress disorder, unspecified; K27.9 Peptic ulcer, site unspecified, unspecified as acute or chronic, without hemorrhage or perforation; F14.10 Cocaine abuse, uncomplicated; G43.809 Other migraine, not intractable, without status migrainosus; F17.210 Nicotine dependence, cigarettes, uncomplicated; Z88.1 Allergy status to other antibiotic agents; G47.33 Obstructive sleep apnea (adult) (pediatric); M54.89 Other dorsalgia; M79.1 Myalgia; R07.89 Other chest pain
CPT/HCPCS: 36415; 70450-TC; 70551-TC; 71010-TC; 80048; 80053; 81003; 83605; 83690; 83880; 85025; 85610; 85730; 93005; 93010; 93880-TC; 99285-25

== ENCOUNTER 2017-03-26 23:55 | Emergency (ER) | payer OTHER ==
[2017-03-27 00:27] VITALS: BP 104/63; PULSE 71; TEMP 97.5; BMI 34.4
--- NOTE | 2017-03-27 00:28 | PDOC ---
History of Present Illness <Elena Lucero - Last Filed: 03/27/17 00:28> - General History Source: Patient - History of Present Illness Initial Comments: 03/27/17 01:33 The patient is a 51 year old female, with a significant past medical history of CAD, [place], CVA/TIA, Asthma, COPD, bipolar disorder, schizophrenia, HTN, HLD, hypothyroidism, DM, morbid obesity, cocaine use, PUD, PTSD, and migraines, who was BIBA to the ED with diffuse pain s/p fall. Patient states she is hurting all over except for her toes. She mentioned that she was having a lot of neck pain. Patient says her head is sore and thinks that she may have fell out of bed. She states that morphine will take care of her pain. Patient was recently here on the and discharged on the in regards to concern for CVA. She uses a cane to walk and states that she has chronic left sided upper extremity weakness due to her past stroke. Allergies: Dilaudid, haldol, toradol, levaquin, oxycodone, motrin, percocet, amoxicillin, trimethoprim, coumadin, bactrim, penicillins tomato, cranberry, gravy fish, milk. Past surgical history: None reported. Social Hx: Drug abuse PCP: Fernando Serrano She denies recent fevers, chills, or dizziness. She denies recent nausea, vomit , diarrhea or constipation. She denies recent dysuria, frequency, urgency or hematuria. She denies recent chest pain or shortness of breath. <Gisela Cavanaugh - Last Filed: 03/27/17 01:42> - General Chief Complaint: Injury Stated Complaint: FALL Past History - Past Medical History Anemia: Yes Asthma: Yes Cancer: No Cardiac Disorders: Yes (chest pain, CAD, [place] x3) CVA: Yes (CVA x3, TIA, left sided residual) COPD: Yes CHF: No Dementia: No Diabetes: Yes GI Disorders: Yes (PEPTIC ULCER) Disorders: No HTN: Yes Hypercholesterolemia: Yes Liver Disease: No Psychiatric Problems: Yes (BIPOLAR, POST TRAMATIC STRESS) Seizures: No Thyroid Disease: No - Surgical History Abdominal Surgery: Yes Appendectomy: No Cardiac Surgery: No Cholecystectomy: No Lung Surgery: No Neurologic Surgery: No Orthopedic Surgery: No - Immunization History Immunization Up to Date: No - Suicide/Smoking/Psychosocial Hx Smoking Status: Yes Smoking History: Unknown if ever smoked Have you smoked in the past 12 months: No Number of Cigarettes Smoked Daily: 3 If you are a former smoker, when did you quit?: 09/18/2014 Cigars Per Day: 20 Information on smoking cessation initiated: No 'Breaking Loose' booklet given: 10/30/14 Hx Alcohol Use: No Drug/Substance Use Hx: No Substance Use Type: None Hx Substance Use Treatment: Yes <Elena Lucero - Last Filed: 03/27/17 00:28> <Gisela Cavanaugh - Last Filed: 03/27/17 01:42> - Past Medical History Allergies/Adverse Reactions: Allergies Allergy/AdvReac Type Severity Reaction Status Date / Time hydromorphone HCl Allergy Intermediate Itching Verified 03/27/17 00:25 [From Dilaudid] amoxicillin [Amoxicillin] Allergy Verified 03/27/17 00:25 ampicillin Allergy Verified 03/27/17 00:25 aspirin Allergy Difficulty Verified 03/27/17 00:25 Breathing cranberry Allergy Rash Verified 03/27/17 00:25 doxycycline Allergy Rash Verified 03/27/17 00:25 Fish Containing Products Allergy Difficulty Verified 03/27/17 00:25 Breathing haloperidol [From Haldol] Allergy Rash Verified 03/27/17 00:25 haloperidol lactate Allergy Rash Verified 03/27/17 00:25 [From Haldol] ibuprofen [From Motrin] Allergy Difficulty Verified 03/27/17 00:25 Breathing ketorolac tromethamine Allergy Rash Verified 03/27/17 00:25 [From Toradol] levofloxacin [From Levaquin] Allergy Rash Verified 03/27/17 00:25 milk Allergy Difficulty Verified 03/27/17 00:25 Breathing oxycodone HCl [From Percocet] Allergy Rash Verified 03/27/17 00:25 Penicillins Allergy Difficulty Verified 03/27/17 00:25 Breathing sulfamethoxazole Allergy Rash Verified 03/27/17 00:25 [From Bactrim] tomato [Tomato] Allergy Hives Verified 03/27/17 00:25 trimethoprim [From Bactrim] Allergy Verified 03/27/17 00:25 warfarin sodium Allergy Verified 03/27/17 00:25 [From Coumadin] Gravy Allergy Unknown Uncoded 03/27/17 00:25 Cranberry/Cranberry juice Allergy Uncoded 03/27/17 00:25 Home Medications: Ambulatory Orders Albuterol Sulfate Inhaler - [Ventolin HFA Inhaler -] 2 puff IH Q4H 03/15/17 Benztropine Mesylate [Cogentin -] 0.5 mg PO BID 03/15/17 Budesonide/Formeterol Fumarate [SYMBICORT 80/4.5mcg -] 1 inh PO DAILY 03/15/17 Bupropion HCl [Bupropion HCl Sr] 150 mg PO DAILY 03/15/17 Clonazepam [Klonopin] 1 mg PO BID 03/15/17 Divalproex Sodium [Depakote] 500 mg PO BID 03/15/17 Docusate Sodium [Colace -] 300 mg PO HS 03/15/17 Ferrous Sulfate 325 mg PO DAILY 03/15/17 Furosemide [Lasix] 40 mg PO DAILY 03/15/17 Gabapentin [Neurontin] 600 mg PO TID 03/15/17 Metformin HCl 1,000 mg PO BID 03/15/17 Metoprolol Succinate [Toprol XL -] 25 mg PO BID 03/15/17 Morphine *Sr* [MS Contin -] 30 mg PO Q6H 03/15/17 Nitroglycerin [Nitrostat] 0.4 mg SL PRN PRN 03/15/17 Polyethylene Glycol 3350 [Miralax 119 gm Btl -] 17 gm PO DAILY 03/15/17 Quetiapine Fumarate [Seroquel] 200 tab PO HS 03/15/17 Sennosides [Senna -] 2 tab PO HS 03/15/17 Simvastatin [Zocor -] 40 mg PO HS 03/15/17 Apixaban [Eliquis] 5 mg PO BID 03/16/17 Divalproex [Depakote -] 250 mg PO HS 03/16/17 Fluoxetine HCl 40 mg PO DAILY 03/16/17 Levothyroxine [Synthroid -] 500 mcg PO DAILY 03/16/17 Pantoprazole Sodium [Protonix] 40 mg PO DAILY 03/16/17 Review of Systems - Review of Systems Comments:: 03/27/17 01:33 CONSTITUTIONAL: Present: Left-sided weakness Absent: fever, no chills, EYES: Absent: visual changes ENT: Present: neck pain. Absent: ear pain, no sore throat CARDIOVASCULAR: Absent: chest pain, no palpitations RESPIRATORY: Absent: cough, no SOB GI: Absent: abdominal pain, no nausea, no vomiting, no constipation, no diarrhea GENITOURINARY: Absent: dysuria, no frequency, no hematuria MUSCULOSKELETAL: Present: back pain, Mild-chronic left upper arm weakness. SKIN: Absent: rash NEURO: Present: headache <Gisela Cavanaugh - Last Filed: 03/27/17 01:42> *Physical Exam - Vital Signs Last Vital Signs Temp Pulse Resp BP Pulse Ox 97.5 F L 71 14 104/63 98 03/27/17 00:25 03/27/17 00:25 03/27/17 00:25 03/27/17 00:25 03/27/17 00:25 <Elena Lucero - Last Filed: 03/27/17 00:28> - Vital Signs Last Vital Signs Temp Pulse Resp BP Pulse Ox 97.5 F L 71 14 104/63 98 03/27/17 00:25 03/27/17 00:25 03/27/17 00:25 03/27/17 00:25 03/27/17 00:25 - Physical Exam Comments: 03/27/17 01:33 GENERAL: Obese. Disheveled in appearance HEENT: No scalp laceration or any evidence of head trauma. Normocephalic, atraumatic. PERRL, EOM intact. Uvula midline, no erythema CARDIOVASCULAR: Normal S1, S2. Regular rate and rhythm. PULMONARY: Clear to auscultation bilaterally. BACK: L5-S1 lower back pain ABDOMEN: Protuberant, soft, non-distended, non-tender. EXTREMITIES: Mild-chronic left upper arm weakness.Movement in all four extremities. No gross deformities. SKIN: Warm, dry. No rash NEUROLOGICAL: Alert, conversant.No focal neurological deficits. <Gisela Cavanaugh - Last Filed: 03/27/17 01:42> *DC/Admit/Observation/Transfer - Attestations Scribe Attestion: 03/27/17 01:41 Documentation prepared by Gisela Cavanaugh, acting as medical records secretary for Elena Lucero MD. <Gisela Cavanaugh - Last Filed: 03/27/17 01:42>
--- NOTE | 2017-03-27 04:01 | PDOC ---
*Physical Exam - Vital Signs Last Vital Signs Temp Pulse Resp BP Pulse Ox 97.5 F L 71 14 104/63 98 03/27/17 00:25 03/27/17 00:25 03/27/17 00:25 03/27/17 00:25 03/27/17 00:25 *DC/Admit/Observation/Transfer Diagnosis at time of Disposition: Chronic low back pain - Discharge Dispostion Disposition: HOME Condition at time of disposition: Stable Admit: No - Referrals Referrals: Fernando Serrano [Primary Care Provider] - - Patient Instructions Printed Discharge Instructions: Managing Chronic Low Back Pain - Post Discharge Activity
== END 2017-03-27 05:22 | disposition home or self-care (01) ==
LOC: JER 23:55
DX: M54.5 Low back pain (principal); G89.29 Other chronic pain; J44.9 Chronic obstructive pulmonary disease, unspecified; F31.9 Bipolar disorder, unspecified; F20.9 Schizophrenia, unspecified; I10 Essential (primary) hypertension; E78.5 Hyperlipidemia, unspecified; E03.9 Hypothyroidism, unspecified; F14.90 Cocaine use, unspecified, uncomplicated; K27.9 Peptic ulcer, site unspecified, unspecified as acute or chronic, without hemorrhage or perforation; Z86.73 Personal history of transient ischemic attack (TIA), and cerebral infarction without residual deficits; Z72.0 Tobacco use
CPT/HCPCS: 70450-TC; 72100-TC; 99281-25

== ENCOUNTER 2017-03-30 02:29 | Observation (INO) | payer OTHER ==
--- NOTE | 2017-03-30 02:41 | PDOC ---
History of Present Illness - General Chief Complaint: Syncope/Near Syncope Stated Complaint: FALL Time Seen by Provider: 03/30/17 02:39 - History of Present Illness Initial Comments: 03/30/17 03:42 The patient is a 51-year-old female with PMH of CAD, NC, CVA/TIA, asthma, COPD, bipolar disorder, schizophrenia, HTN, HLD, hypothyroidism, DM, morbid obesity, cocaine use, PUD, PTSD, and migraines who is brought in by ambulance to the emergency department this morning with pain status post fall/syncope. Patient states that she went up to smoke on the roof for building spoke for coming in. She states she kept her lightheaded and passed out. She reports LOC of approximately 10 minutes, however there is no clock on the roof and this was an unwitnessed fall. Patient states that she currently feels lightheaded and that she has "pain all over. She states that she has chest pain that started approximately 6 hours ago and is getting worse. She states that her last cocaine use was . Admits to headache, chest pain. Denies fevers, chills , cough, runny nose, shortness of breath, palpitations, nausea, vomiting and diarrhea. Past History - Travel Traveled outside of the country in the last 30 days: No Close contact w/someone who was outside of country & ill: No - Past Medical History Allergies/Adverse Reactions: Allergies Allergy/AdvReac Type Severity Reaction Status Date / Time hydromorphone HCl Allergy Intermediate Itching Verified 03/30/17 06:13 [From Dilaudid] amoxicillin [Amoxicillin] Allergy Verified 03/30/17 06:13 ampicillin Allergy Verified 03/30/17 06:13 aspirin Allergy Difficulty Verified 03/30/17 06:13 Breathing cranberry Allergy Rash Verified 03/30/17 06:13 doxycycline Allergy Rash Verified 03/30/17 06:13 Fish Containing Products Allergy Difficulty Verified 03/30/17 06:13 Breathing haloperidol [From Haldol] Allergy Rash Verified 03/30/17 06:13 haloperidol lactate Allergy Rash Verified 03/30/17 06:13 [From Haldol] ibuprofen [From Motrin] Allergy Difficulty Verified 03/30/17 06:13 Breathing ketorolac tromethamine Allergy Rash Verified 03/30/17 06:13 [From Toradol] levofloxacin [From Levaquin] Allergy Rash Verified 03/30/17 06:13 milk Allergy Difficulty Verified 03/30/17 06:13 Breathing oxycodone HCl [From Percocet] Allergy Rash Verified 03/30/17 06:13 Penicillins Allergy Difficulty Verified 03/30/17 06:13 Breathing sulfamethoxazole Allergy Rash Verified 03/30/17 06:13 [From Bactrim] tomato [Tomato] Allergy Hives Verified 03/30/17 06:13 trimethoprim [From Bactrim] Allergy Verified 03/30/17 06:13 warfarin sodium Allergy Verified 03/30/17 06:13 [From Coumadin] Gravy Allergy Unknown Uncoded 03/30/17 06:13 Cranberry/Cranberry juice Allergy Uncoded 03/30/17 06:13 Home Medications: Ambulatory Orders Albuterol Sulfate Inhaler - [Ventolin HFA Inhaler -] 2 puff IH Q4H 03/15/17 Benztropine Mesylate [Cogentin -] 0.5 mg PO BID 03/15/17 Budesonide/Formeterol Fumarate [SYMBICORT 80/4.5mcg -] 1 inh PO DAILY 03/15/17 Bupropion HCl [Bupropion HCl Sr] 150 mg PO DAILY 03/15/17 Clonazepam [Klonopin] 1 mg PO BID 03/15/17 Divalproex Sodium [Depakote] 500 mg PO BID 03/15/17 Docusate Sodium [Colace -] 300 mg PO HS 03/15/17 Ferrous Sulfate 325 mg PO DAILY 03/15/17 Furosemide [Lasix] 40 mg PO DAILY 03/15/17 Gabapentin [Neurontin] 600 mg PO TID 03/15/17 Metformin HCl 1,000 mg PO BID 03/15/17 Metoprolol Succinate [Toprol XL -] 25 mg PO BID 03/15/17 Morphine *Sr* [MS Contin -] 30 mg PO Q6H 03/15/17 Nitroglycerin [Nitrostat] 0.4 mg SL PRN PRN 03/15/17 Polyethylene Glycol 3350 [Miralax 119 gm Btl -] 17 gm PO DAILY 03/15/17 Quetiapine Fumarate [Seroquel] 200 tab PO HS 03/15/17 Sennosides [Senna -] 2 tab PO HS 03/15/17 Simvastatin [Zocor -] 40 mg PO HS 03/15/17 Apixaban [Eliquis] 5 mg PO BID 03/16/17 Divalproex [Depakote -] 250 mg PO HS 03/16/17 Fluoxetine HCl 40 mg PO DAILY 03/16/17 Levothyroxine [Synthroid -] 500 mcg PO DAILY 03/16/17 Pantoprazole Sodium [Protonix] 40 mg PO DAILY 03/16/17 Anemia: Yes Asthma: Yes Cancer: No Cardiac Disorders: Yes (chest pain, CAD, NC x3) CVA: Yes (CVA x3, TIA, left sided residual) COPD: Yes CHF: No Dementia: No Diabetes: Yes GI Disorders: Yes (PEPTIC ULCER) Disorders: No HTN: Yes Hypercholesterolemia: Yes Liver Disease: No Psychiatric Problems: Yes (BIPOLAR, POST TRAMATIC STRESS) Seizures: No Thyroid Disease: No - Surgical History Abdominal Surgery: Yes Appendectomy: No Cardiac Surgery: No Cholecystectomy: No Lung Surgery: No Neurologic Surgery: No Orthopedic Surgery: No - Immunization History Immunization Up to Date: No - Suicide/Smoking/Psychosocial Hx Smoking Status: Yes Smoking History: Unknown if ever smoked Have you smoked in the past 12 months: No Number of Cigarettes Smoked Daily: 3 If you are a former smoker, when did you quit?: 09/18/2014 Cigars Per Day: 20 'Breaking Loose' booklet given: 10/30/14 Hx Alcohol Use: No Drug/Substance Use Hx: No Substance Use Type: None Hx Substance Use Treatment: Yes Review of Systems - Review of Systems Able to Perform ROS?: Yes Comments:: 03/30/17 03:46 CONSTITUTIONAL: Absent: fever, chills, diaphoresis, generalized weakness, malaise, loss of appetite HEENT: Absent: rhinorrhea, nasal congestion, throat pain, throat swelling, difficulty swallowing, mouth swelling, ear pain, eye pain, visual Changes CARDIOVASCULAR: Present: Chest pain, syncope Absent: chest pain, loss of consciousness, palpitations, irregular heart rate, peripheral edema RESPIRATORY: Absent: cough, shortness of breath, dyspnea with exertion, orthopnea, wheezing, stridor, hemoptysis GASTROINTESTINAL: Absent: abdominal pain, abdominal distension, nausea, vomiting, diarrhea, constipation, melena, hematochezia GENITOURINARY: Absent: dysuria, frequency, urgency, hesitancy, hematuria, flank pain, genital pain MUSCULOSKELETAL: Absent: myalgia, arthralgia, joint swelling SKIN: Absent: rash, itching, pallor HEMATOLOGIC/IMMUNOLOGIC: Absent: easy bleeding, easy bruising, lymphadenopathy, frequent infections ENDOCRINE: Absent: unexplained weight gain, unexplained weight loss, heat intolerance, cold intolerance NEUROLOGIC: Present: Headache, dizziness. Absent: focal weakness or paresthesias, unsteady gait, seizure, mental status changes, bladder or bowel incontinence PSYCHIATRIC: Present: Suicidal ideation Absent: anxiety, depression, homicidal ideation, hallucinations. Is the patient limited [place]ian proficient: No *Physical Exam - Physical Exam Comments: 03/30/17 05:58 GENERAL: Well developed, well nourished. Awake and alertx3. No acute distress. Disheveled HEENT: Normocephalic, atraumatic. PERRLA, EOMI. No conjunctival pallor. Sclera are non- icteric. Moist mucous membranes. Oropharynx is clear. NECK: Supple. Full ROM. No JVD. Carotid pulses 2+ and symmetric, without bruits. No thyromegaly. No lymphadenopathy. CARDIOVASCULAR: TTP of chest. Regular rate and rhythm. No murmurs, rubs, or gallops. Distal pulses are 2+ and symmetric. PULMONARY: No evidence of respiratory distress. Lungs clear to auscultation bilaterally. No wheezing, rales or rhonchi. ABDOMINAL: Diffuse abdominal tenderness. Soft. Non-distended. No rebound or guarding. No organomegaly. Normoactive bowel sounds. MUSCULOSKELETAL Normal range of motion at all joints. No bony deformities or tenderness. No CVA tenderness. EXTREMITIES: No cyanosis. No clubbing. No edema. No calf tenderness. SKIN: Warm and dry. Normal capillary refill. No rashes. No jaundice. NEUROLOGICAL: Alert, awake, appropriate. Cranial nerves 2-12 intact. No deficits to light touch and temperature in face, upper extremities and lower extremities. No motor deficits in the in face, upper extremities and lower extremities. Normoreflexic in the upper and lower extremities. Speech slurred, however this is the pt baseline d/t old CVA. Toes are down-going bilaterally. Gait is normal without ataxia. PSYCHIATRIC: States she wants to hurt herself. Cooperative. Good eye contact. Appropriate mood and affect. ED Treatment Course - LABORATORY CBC & Chemistry Diagram: 03/30/17 07:20 03/30/17 07:20 Medical Decision Making - Medical Decision Making 03/30/17 03:59 The patient is a 51-year-old female with PMH of CAD, NC, CVA/TIA, asthma, COPD, bipolar disorder, schizophrenia, HTN, HLD, hypothyroidism, DM, morbid obesity, cocaine use, PUD, PTSD, and migraines who is brought in by ambulance to the emergency department this morning with pain status post fall/syncope. Pt. is well known to the department. Pt. states on arrival that she is having a "lot of pain" and is requesting morphine. Will work up for syncopal episode at this time. Chest pain does not seem to be cardiac in origin as it is reproducible on exam. Pt also states that she feels like she might want to hurt herself, but has no plan. 1. CBC, CMP, PT/INR, Trop, UA, UC, Upreg 2. Tylenol 3. CT Head, CXR, EKG 4. Psych consult in AM. 5. Reassess 03/30/17 04:48 EKG: rate 86, sinus rhythm. Normal intervals. No acute-st-t wave changes. Pt. with poor veins. Multiple IV attempts with no success. Pt. refuses arterial draw at this time. 03/30/17 06:00 Sign out given to Samreen Marquis NP. 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
[2017-03-30 02:53] VITALS: BMI 35.4
[2017-03-30] MEDS ORDERED: ACETAMINOPHEN 325 MG TABLET (FP) PO ONE (03:03)
[2017-03-30 05:53] LABS: INR 1.03 (0.82-1.09); PROTHROMBIN TIME (PATIENT) 11.6 SEC (9.98-11.88)
[2017-03-30 07:39] LABS: BASOPHIL 0.4 % (0-2.0); EOSINOPHIL 1.3 % (0-4.5); MCH 28.8 pg (25.7-33.7); MCHC 35.4 g/dl (32.0-36.0); MEAN CELL VOLUME 81.3 fl (80-96); MEAN PLT VOLUME 10.9 fl (7.5-11.1); NEUTROPHILS 66.2 % (42.8-82.8); PLATELET COUNT 164 K/MM3 (134-434); RDW 16.8 % (11.6-15.6); WHITE BLOOD COUNT 9.1 K/mm3 (4.0-10.0)
[2017-03-30 07:43] LABS: URINE APPEARANCE CLOUDY; URINE BILIRUBIN NEGATIVE (NEGATIVE); URINE BLOOD NEGATIVE (NEGATIVE); URINE COLOR DKYELLOW; URINE GLUCOSE (UA) NEGATIVE (NEGATIVE); URINE KETONE NEGATIVE (NEGATIVE); URINE NITRITE NEGATIVE (NEGATIVE); URINE UROBILINOGEN 4.0 E.U/dl mg/dL (0.2-1.0)
[2017-03-30 07:48] LABS: URINE PROTEIN 1+ (NEGATIVE)
[2017-03-30 07:49] LABS: URINE BACTERIA RARE /hpf (NONE SEEN); URINE HYALINE CAST 3 /lpf; URINE MUCUS RARE; URINE RBC 6 /hpf (0-3); URINE WBC 60 /hpf (3-5)
[2017-03-30 08:08] LABS: ALBUMIN 3.6 g/dl (3.4-5.0); ANION GAP 5 (8-16); CALCIUM 8.5 mg/dL (8.5-10.1); CO2 32 mmol/L (21-32); CREATININE 1.4 mg/dL (0.55-1.02); GLUCOSE,RANDOM 72 mg/dL (74-106); MAGNESIUM 2.1 mg/dL (1.8-2.4); PHOSPHOROUS 3.8 mg/dL (2.5-4.9); SGOT/AST 12 U/L (15-37); SGPT/ALT 19 U/L (12-78)
[2017-03-30 08:13] LABS: ALK PHOS 97 U/L (45-117); BILIRUBIN,TOTAL 0.4 mg/dL (0.2-1.0); CPK 258 IU/L (26-192); TOT PROT 7.3 g/dl (6.4-8.2); TROPONIN I < 0.02 ng/ml (0.00-0.05)
[2017-03-30] MEDS ORDERED: metFORMIN HCL 500 MG TABLET (FP) PO ONE (08:39)
[2017-03-30] MEDS ORDERED: GABAPENTIN 300 MG CAPSULE (FP) PO ONE (08:39)
[2017-03-30] MEDS ORDERED: FLUoxetine HCL 20 MG CAPSULE (FP) PO ONE (08:40)
[2017-03-30] MEDS ORDERED: clonazePAM 0.5 MG TABLET PO ONE (08:41)
[2017-03-30] MEDS ORDERED: DIVALPROEX SODIUM 500 MG TABLET E.C. PO ONE (08:41)
[2017-03-30] MEDS ORDERED: BENZTROPINE MESYLATE 0.5 MG TABLET (FP) PO ONE (08:42)
--- NOTE | 2017-03-30 08:45 | PDOC ---
*Physical Exam - Vital Signs Last Vital Signs Temp Pulse Resp BP Pulse Ox 98.0 F 78 16 110/68 98 03/30/17 06:24 03/30/17 06:24 03/30/17 06:24 03/30/17 06:24 03/30/17 06:24 ED Treatment Course - LABORATORY CBC & Chemistry Diagram: 03/30/17 07:20 03/30/17 07:20 - ADDITIONAL ORDERS Additional order review: Laboratory Results 03/30/17 03/30/17 03/30/17 07:32 07:30 07:20 PT with INR INR Sodium 140 Potassium 3.5 D Chloride 103 Carbon Dioxide 32 Anion Gap 5 L BUN 15 D Creatinine 1.4 H D Creat Clearance w eGFR 39.80 Random Glucose 72 L D Calcium 8.5 Phosphorus 3.8 Magnesium 2.1 D Total Bilirubin 0.4 D AST 12 L D ALT 19 Alkaline Phosphatase 97 Creatine Kinase 258 H Troponin I < 0.02 B-Natriuretic Peptide 34.55 Total Protein 7.3 Albumin 3.6 Urine Color Dkyellow Urine Appearance Cloudy Urine pH 6.0 Urine Protein 1+ H Urine Glucose (UA) Negative Urine Ketones Negative Urine Blood Negative Urine Nitrite Negative Urine Bilirubin Negative Urine Urobilinogen 4.0 e.u/dl H Urine RBC 6 Urine WBC 60 Ur Epithelial Cells Many Urine Bacteria Rare Hyaline Casts 3 Urine Mucus Rare Urine HCG, Qual Negative 03/30/17 05:20 PT with INR 11.60 INR 1.03 Sodium Potassium Chloride Carbon Dioxide Anion Gap BUN Creatinine Creat Clearance w eGFR Random Glucose Calcium Phosphorus Magnesium Total Bilirubin AST ALT Alkaline Phosphatase Creatine Kinase Troponin I B-Natriuretic Peptide Total Protein Albumin Urine Color Urine Appearance Urine pH Urine Protein Urine Glucose (UA) Urine Ketones Urine Blood Urine Nitrite Urine Bilirubin Urine Urobilinogen Urine RBC Urine WBC Ur Epithelial Cells Urine Bacteria Hyaline Casts Urine Mucus Urine HCG, Qual 03/30/17 07:20 RBC 4.35 MCV 81.3 MCHC 35.4 RDW 16.8 H MPV 10.9 Neutrophils % 66.2 Lymphocytes % 26.0 D Monocytes % 6.1 Eosinophils % 1.3 Basophils % 0.4 - Medications Given in the ED: ED Medications Discontinued Medications Generic Name Dose Route Start Last Admin Trade Name Freq PRN Reason Stop Dose Admin Acetaminophen 650 mg 03/30/17 03:03 03/30/17 04:02 Tylenol - PO 03/30/17 03:04 Not Given ONCE ONE Medical Decision Making - Medical Decision Making 03/30/17 07:44 Patient received in sign out. Patient status post syncopal episode with head injury. Patient also arrives with complaints of chest pain and while here states she has been feeling depressed and wanting to hurt herself feeling hopeless. Patient has no plan to injure herself and denies any homicidal ideation. Patient requesting her morning psych meds. Patient ordered for medication and awaiting [employer]sey [employer] talent scout for consultation. One-to-one observation in place. Pt eating breakfast. Laboratory Tests 03/30/17 03/30/17 07:20 07:45 Sodium 140 Potassium 3.5 D Chloride 103 Carbon Dioxide 32 Anion Gap 5 L BUN 15 D Creatinine 1.4 H D Creat Clearance w eGFR 39.80 Random Glucose 72 L D Calcium 8.5 Phosphorus 3.8 Magnesium 2.1 D Total Bilirubin 0.4 D AST 12 L D ALT 19 Alkaline Phosphatase 97 Creatine Kinase 258 H Creatine Kinase Index 1.0 CK-MB (CK-2) 2.604 Troponin I < 0.02 B-Natriuretic Peptide 34.55 Total Protein 7.3 Albumin 3.6 Opiates Screen Positive Ur Amphetamines Screen Positive MDMA (Ecstasy) Screen Positive Cocaine Screen Positive 03/30/17 10:[address] negative for acute findings. Patient stating she wants Tylenol for her headache. Patient will be given a dose of liquid Tylenol. Patient has been cleared by talent scout . 03/30/17 10:36 Since patient is on eliquis and had a head injury secondary to syncope patient will be admitted observation. 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
--- NOTE | 2017-03-30 09:37 | EKG ---
Test Reason : Blood Pressure : / mmHG Vent. Rate : 086 BPM Atrial Rate : 086 BPM P-R Int : 144 ms QRS Dur : 090 ms QT Int : 408 ms P-R-T Axes : 041 012 030 degrees QTc Int : 488 ms NORMAL SINUS RHYTHM CANNOT RULE OUT ANTERIOR INFARCT , AGE UNDETERMINED ABNORMAL ECG WHEN COMPARED WITH ECG OF 15-MAR-2017 17:08, NO SIGNIFICANT CHANGE WAS FOUND Confirmed by ALEXANDER DANIELS, ANDRÉS ([id number]) on 03/30/2017 9:37:05 AM Referred By: Confirmed By:ANDRÉS MUNOZ MD
[2017-03-30 09:48] LABS: URINE MARIJUANA THC NEGATIVE ng/ml (CUTOFF=50)
--- NOTE | 2017-03-30 10:08 | CON.PSY ---
Psychiatry Consult Chief Complaint: Asked to see this patient for suicidal ideation History of Present Problem: Patient was brought to the ER for expressing the thought to kill herself after the of her best friend. Her friend committed suicide. She was seen and evaluated Medical Records seen Hx obtained from patient and medical provider here in the ER,, She states that she did feel like ' ending it all' but at this time she feels well The purpose for living, she states are, her mentally ill son and her mother She did give some vague suicidal attempt in the past by drug OD. She denies hopeless and helplessness. no plans/ no intent/ Symptoms: denies: Depressed Mood, Anhedonia, Worthlessness/Guilt, Decreased Energy, Suicidality (Mood is neutral), Self destructive thoughts, Appetite Disturbance, Weight change, Hopelessness, Sleep Disturbance, Diurnal Mood Changes, Impaired Concentration, Decreased Motivation, Memory Impairment, Irritability, Expansive / Elevated Mood, Grandiosity, Hyper-religiosity, Excessive Energy, Racing Thoughts, Anxiety, Panic Attacks, Obsessive Thoughts, Flashbacks, Compulsive Behaviors, Agoraphobia, Restlessness, Phobias, Bulimic Behavior, Anorexic Behavior, Somatic Symptoms, Sexual Dysfunction, Inability to Control Temper, Aggressivity, Impulsivity, Depersonalization, Derealization, Amnesic Episodes, Disorganized/Disruptive Thoughts, Delusions, Hallucinations, Paranoia, Conduct Problems, Oppositionalism, Attention Deficit, Learning Problems, Firesetting, Enuresis, Lying, Hyperactivity, Other - Allergies Allergies: Allergies Allergy/AdvReac Type Severity Reaction Status Date / Time hydromorphone HCl Allergy Intermediate Itching Verified 03/30/17 06:13 [From Dilaudid] amoxicillin [Amoxicillin] Allergy Verified 03/30/17 06:13 ampicillin Allergy Verified 03/30/17 06:13 aspirin Allergy Difficulty Verified 03/30/17 06:13 Breathing cranberry Allergy Rash Verified 03/30/17 06:13 doxycycline Allergy Rash Verified 03/30/17 06:13 Fish Containing Products Allergy Difficulty Verified 03/30/17 06:13 Breathing haloperidol [From Haldol] Allergy Rash Verified 03/30/17 06:13 haloperidol lactate Allergy Rash Verified 03/30/17 06:13 [From Haldol] ibuprofen [From Motrin] Allergy Difficulty Verified 03/30/17 06:13 Breathing ketorolac tromethamine Allergy Rash Verified 03/30/17 06:13 [From Toradol] levofloxacin [From Levaquin] Allergy Rash Verified 03/30/17 06:13 milk Allergy Difficulty Verified 03/30/17 06:13 Breathing oxycodone HCl [From Percocet] Allergy Rash Verified 03/30/17 06:13 Penicillins Allergy Difficulty Verified 03/30/17 06:13 Breathing sulfamethoxazole Allergy Rash Verified 03/30/17 06:13 [From Bactrim] tomato [Tomato] Allergy Hives Verified 03/30/17 06:13 trimethoprim [From Bactrim] Allergy Verified 03/30/17 06:13 warfarin sodium Allergy Verified 03/30/17 06:13 [From Coumadin] Gravy Allergy Unknown Uncoded 03/30/17 06:13 Cranberry/Cranberry juice Allergy Uncoded 03/30/17 06:13 - Current Living Status Usual Living Arrangement: Jail - Current Mental Status Evaluation Attitude: Cooperative - Affect Affect: Constrictive Appropriateness: Appropriate to Content - Mood Mood: Other (neutral) - Speech/Language Receptive: Age Appropriate Comprehension of Spoken Words - Psychomotor Activity Psychomotor Activity: Normal - Thought Process Thought Process: Intact - Thought Content Hallucinations: Absent Delusions: Absent - Self Perception Self Perception: No Impairment - Cognition Attention: Alert Orientation: Time, Person, Place Memory, Immediate Recall: Intact - Concentration Simple Calculations Intact: Yes - Abstraction Proverb Interpretation: Intact Judgement: Minimally Impaired - Insight Insight: Intact - Impulse Control Impulse Control: Good Control - Suicidal Ideation Suicidal Ideation: No - Homicidal Ideation Homicidal Ideation: No Assessment/Plan Acute suicidal crisis and to thoughts of wanting to kill herself after the of her best friend. At this time her suicidal state has diminished Patient has underlying psychiatric condition and active polysubstance abuse She is refusing detoxification at this time Patient is not suicidal at this time.
[2017-03-30] MEDS ORDERED: ACETAMINOPHEN 650 MG/20.3 ML ORAL SOLUTION (CUPS) PO ONE (10:12)
[2017-03-30] MEDS ORDERED: PANTOPRAZOLE 40 MG TABLET (FP) PO ONE (10:26)
[2017-03-30 11:39] LABS: URINE LEUK ESTERASE 3+ (NEGATIVE)
--- NOTE | 2017-03-30 13:33 | HP ---
CHIEF COMPLAINT: Syncope HISTORY OF PRESENT ILLNESS: The patient is a 51-year-old female with PMH of CAD, [place], CVA/TIA, asthma, COPD, bipolar disorder, schizophrenia, HTN, HLD, hypothyroidism, DM, morbid obesity, cocaine use, PUD, PTSD, and migraines who was brought in by ambulance to the emergency department status post fall/syncope. Patient states that she went up to smoke on the roof of her building. She became lightheaded and passed out. She reports LOC of approximately 10 minutes, however there was no clock on the roof and this was an unwitnessed fall. On presentation to ED, patient stated she felt lightheaded, had a headache, and had "pain all over." She also reported chest pain x 6 hours. Her last cocaine use was . During the course of her ED stay, patient reported feeling depressed, hopeless and wanting to hurt herself. Denied fevers, sweats, chills, cough, runny nose, shortness of breath, palpitations, nausea, vomiting and diarrhea. ER course was notable for: (1) CT head: no acute pathology (2) Troponin neg x 1 (3) Utox positive for opiates, amphetamines, MDMA, cocaine (4) ECG: sinus rhythm @ 86bpm; prolonged QTc 488 Recent Travel: No PAST MEDICAL HISTORY: As above PAST SURGICAL HISTORY: As above Social History: Smoking: yes Alcohol: yes Drugs: yes Family History: Allergies hydromorphone HCl [From Dilaudid] Allergy (Intermediate, Verified 03/30/17 06:13 ) Itching amoxicillin [Amoxicillin] Allergy (Verified 03/30/17 06:13) ampicillin Allergy (Verified 03/30/17 06:13) aspirin Allergy (Verified 03/30/17 06:13) Difficulty Breathing cranberry Allergy (Verified 03/30/17 06:13) Rash doxycycline Allergy (Verified 03/30/17 06:13) Rash Fish Containing Products Allergy (Verified 03/30/17 06:13) Difficulty Breathing haloperidol [From Haldol] Allergy (Verified 03/30/17 06:13) Rash haloperidol lactate [From Haldol] Allergy (Verified 03/30/17 06:13) Rash ibuprofen [From Motrin] Allergy (Verified 03/30/17 06:13) Difficulty Breathing ketorolac tromethamine [From Toradol] Allergy (Verified 03/30/17 06:13) Rash levofloxacin [From Levaquin] Allergy (Verified 03/30/17 06:13) Rash milk Allergy (Verified 03/30/17 06:13) Difficulty Breathing oxycodone HCl [From Percocet] Allergy (Verified 03/30/17 06:13) Rash Penicillins Allergy (Verified 03/30/17 06:13) Difficulty Breathing sulfamethoxazole [From Bactrim] Allergy (Verified 03/30/17 06:13) Rash tomato [Tomato] Allergy (Verified 03/30/17 06:13) Hives trimethoprim [From Bactrim] Allergy (Verified 03/30/17 06:13) warfarin sodium [From Coumadin] Allergy (Verified 03/30/17 06:13) Gravy Allergy (Unknown, Uncoded 03/30/17 06:13) Cranberry/Cranberry juice Allergy (Uncoded 03/30/17 06:13) HOME MEDICATIONS: Home Medications Medication Instructions Recorded Albuterol Sulfate Inhaler - 2 puff IH Q4H 03/15/17 [Ventolin HFA Inhaler -] Benztropine Mesylate [Cogentin -] 0.5 mg PO BID 03/15/17 Budesonide/Formeterol Fumarate 1 inh PO DAILY 03/15/17 [SYMBICORT 80/4.5mcg -] Bupropion HCl [Bupropion HCl Sr] 150 mg PO DAILY 03/15/17 Clonazepam [Klonopin] 1 mg PO BID 03/15/17 Divalproex Sodium [Depakote] 500 mg PO BID 03/15/17 Docusate Sodium [Colace -] 300 mg PO HS 03/15/17 Ferrous Sulfate 325 mg PO DAILY 03/15/17 Furosemide [Lasix] 40 mg PO DAILY 03/15/17 Gabapentin [Neurontin] 600 mg PO TID 03/15/17 Metformin HCl 1,000 mg PO BID 03/15/17 Metoprolol Succinate [Toprol XL -] 25 mg PO BID 03/15/17 Morphine *Sr* [MS Contin -] 30 mg PO Q6H 03/15/17 Nitroglycerin [Nitrostat] 0.4 mg SL PRN PRN 03/15/17 Polyethylene Glycol 3350 [Miralax 17 gm PO DAILY 03/15/17 119 gm Btl -] Quetiapine Fumarate [Seroquel] 200 tab PO HS 03/15/17 Sennosides [Senna -] 2 tab PO HS 03/15/17 Simvastatin [Zocor -] 40 mg PO HS 03/15/17 Apixaban [Eliquis] 5 mg PO BID 03/16/17 Divalproex [Depakote -] 250 mg PO HS 03/16/17 Fluoxetine HCl 40 mg PO DAILY 03/16/17 Levothyroxine [Synthroid -] 500 mcg PO DAILY 03/16/17 Pantoprazole Sodium [Protonix] 40 mg PO DAILY 03/16/17 REVIEW OF SYSTEMS CONSTITUTIONAL: Present: weakness, dizziness Absent: fever, chills, diaphoresis, generalized weakness, malaise, loss of appetite, weight change HEENT: Absent: rhinorrhea, nasal congestion, throat pain, throat swelling, difficulty swallowing, mouth swelling, ear pain, eye pain, visual changes CARDIOVASCULAR: Present: chest pain, syncope, lightheadedness Absent: chest pain, syncope, palpitations, irregular heart rate, peripheral edema RESPIRATORY: Absent: cough, shortness of breath, dyspnea with exertion, orthopnea, wheezing, stridor, hemoptysis GASTROINTESTINAL: Absent: abdominal pain, abdominal distension, nausea, vomiting, diarrhea, constipation, melena, hematochezia GENITOURINARY: Absent: dysuria, frequency, urgency, hesitancy, hematuria, flank pain, genital pain MUSCULOSKELETAL: Absent: myalgia, arthralgia, joint swelling, back pain, neck pain SKIN: Absent: rash, itching, pallor HEMATOLOGIC/IMMUNOLOGIC: Absent: easy bleeding, easy bruising, lymphadenopathy, frequent infections ENDOCRINE: Absent: unexplained weight gain, unexplained weight loss, heat intolerance, cold intolerance NEUROLOGIC: Present: headache, dizziness Absent: focal weakness or paresthesias, unsteady gait, seizure, mental status changes, bladder or bowel incontinence PSYCHIATRIC: Present: depression, suicidal ideation Absent: anxiety, suicidal ideation, hallucinations. PHYSICAL EXAMINATION Vital Signs - 24 hr 03/30/17 12:39 Pulse Rate [ 80 Apical] Respiratory 18 Rate Blood Pressure 97/64 [Right Arm] O2 Sat by Pulse 100 Oximetry (%) GENERAL: Awake, alert, and fully oriented, in no acute distress. HEAD: Normal with no signs of trauma. EYES: Pupils equal, round and reactive to light, extraocular movements intact, sclera anicteric, conjunctiva clear. No ptosis. EARS, NOSE, THROAT: Ears normal, nares patent, oropharynx clear without exudates. Moist mucous membranes. NECK: Normal range of motion, supple without lymphadenopathy, JVD, or masses. LUNGS: Breath sounds equal, clear to auscultation bilaterally. No wheezes, and no crackles. No accessory muscle use. HEART: Regular rate and rhythm, normal S1 and S2 without murmur, rub or gallop. ABDOMEN: Soft, nontender, not distended, normoactive bowel sounds, no guarding, no rebound, no masses. No hepatomegaly or splenomegaly. MUSCULOSKELETAL: Normal range of motion at all joints. No bony deformities or tenderness. No CVA tenderness. UPPER EXTREMITIES: 2+ pulses, warm, well-perfused. No cyanosis. No clubbing. No peripheral edema. LOWER EXTREMITIES: 2+ pulses, warm, well-perfused. No calf tenderness. No peripheral edema. NEUROLOGICAL: Cranial nerves II-XII intact. Normal speech. Gait not observed. ASSESSMENT/PLAN: 51 year-old female with a PMH significant for HTN, HLD, CAD s/p [place], h/o CVA/TIA , migraines, asthma/COPD (current smoker), NIDDM, hypothyroidism, PUD, bipolar disorder, schizophrenia, and polysubstance abuse. Placed on observation following a syncopal episode. Syncope --r/o ACS: troponins negative x 2; echo ordered; cardiology consult requested ; telemetry monitoring --US carotids done earlier this month, no significant atherosclerosis, no hemodynamically significant stenosis --orthostatics --initial CT head negative for acute pathology, repeat pending Hypertension --stop metoprolol due to utox positive for cocaine --BP is well-controlled Hyperlipidemia --continue Lipitor CAD s/p [place] --allergic to ASA; continue statin; no beta blockers h/o CVA/TIA --continue Eliquis SIMRAN --Cr 1.4, baseline 1.0 --likely prerenal, IV fluids Asthma/COPD --continue symbicort, albuterol MDI NIDDM --Novolog sliding scale coverage Hypothyroidism --continue levothyroxine --f/u TSH PUD --Protonix PO Bipolar disorder Schizophrenia --hold seroquel due to prolonged QTc --continue Depakote, Wellbutrin, Prozac, clonazepam PRN Polysubstance abuse --utox positive for opiates, amphetamines, MDMA, cocaine --no signs or symptoms of withdrawal, monitor closely DVT prophylaxis: on Eliquis Dispo: continues to require inpatient care. Full Code. Visit type - Emergency Visit Emergency Visit: Yes ED Registration Date: 03/30/17 Care time: The patient presented to the Emergency Department on the above date and was hospitalized for further evaluation of their emergent condition. - New Patient This patient is new to me today: Yes Date on this admission: 03/31/17 - Critical Care Critical Care patient: No
[2017-03-30] MEDS ORDERED: PATIENT'S OWN MEDICATION (NON-FORMULARY) (Fluoxetine Hcl [Fluoxetine Hcl] 40 MG) PO SCH (13:45)
[2017-03-30] MEDS ORDERED: PATIENT'S OWN MEDICATION (NON-FORMULARY) (Clonazepam [Klonopin] 1 MG) PO SCH (13:45)
[2017-03-30] MEDS ORDERED: NITROGLYCERIN SUBLINGUAL 1/150 0.4 MG TAB SL PRN (13:45)
[2017-03-30] MEDS ORDERED: morphine SO4 SUSTAINED ACTING 30 MG TABLET.SA PO SCH (13:45)
[2017-03-30] MEDS ORDERED: PATIENT'S OWN MEDICATION (NON-FORMULARY) (Bupropion Hcl [Bupropion Hcl Sr] 150 MG) PO SCH (13:45)
[2017-03-30] MEDS ORDERED: clonazePAM 0.5 MG TABLET PO PRN (13:54)
[2017-03-30] MEDS ORDERED: PATIENT'S OWN MEDICATION (NON-FORMULARY) (Gabapentin [Neurontin] 600 MG) PO SCH (14:00)
[2017-03-30] MEDS ORDERED: DIVALPROEX SODIUM 250 MG TABLET E.C. (FP) PO SCH (14:00)
[2017-03-30] MEDS: ALBUTEROL SO4 18 GM HFA INHALER IH SCH ×2 (14:16→22:49)
[2017-03-30] MEDS: FUROSEMIDE 40 MG TABLET (FP) PO SCH (14:16)
[2017-03-30] MEDS: SODIUM CHLORIDE 1,000 ML IV SCH (14:16)
[2017-03-30] MEDS ORDERED: QUEtiapine FUMARATE 50 MG TABLET PO SCH (22:00)
[2017-03-30] MEDS ORDERED: METOPROLOL SUCCINATE 25 MG TAB.SR.24H (FP) PO SCH (22:00)
[2017-03-30] MEDS: BENZTROPINE MESYLATE 0.5 MG TABLET (FP) PO SCH (22:29)
[2017-03-30] MEDS: APIXABAN 5 MG TABLET PO SCH (22:29)
[2017-03-30] MEDS: morphine SO4 SUSTAINED ACTING 30 MG TABLET.SA PO SCH (22:30)
[2017-03-30] MEDS: GABAPENTIN 300 MG CAPSULE (FP) PO SCH (22:30)
[2017-03-30] MEDS: DOCUSATE SODIUM 100 MG CAPSULE (FP) PO SCH (22:31)
[2017-03-30] MEDS: ATORVASTATIN CA 20 MG TABLET (FP) PO SCH (22:32)
[2017-03-30] MEDS: SENNOSIDES 8.6MG TABLET (FP) PO SCH (22:33)
[2017-03-30] MEDS: INSULIN (NOVOLOG) ASPART 100 UNITS/ML 10ML VIAL SQ SCH (22:36)
[2017-03-30] MEDS: DIVALPROEX SODIUM 500 MG TABLET E.C. PO SCH (22:48)
[2017-03-30] MEDS: DIVALPROEX SODIUM 250 MG TABLET E.C. (FP) PO SCH (23:07)
[2017-03-31] MEDS: GABAPENTIN 300 MG CAPSULE (FP) PO SCH ×2 (06:29→14:00)
[2017-03-31] MEDS: morphine SO4 SUSTAINED ACTING 30 MG TABLET.SA PO SCH ×2 (06:30→14:00)
[2017-03-31] MEDS: LEVOTHYROXINE NA 100 MCG TABLET (FP) PO SCH (06:30)
[2017-03-31] MEDS: INSULIN (NOVOLOG) ASPART 100 UNITS/ML 10ML VIAL SQ SCH ×4 (06:36→22:38)
[2017-03-31 07:29] LABS: BASOPHIL 0.5 % (0-2.0); EOSINOPHIL 1.5 % (0-4.5); MCH 28.6 pg (25.7-33.7); MEAN CELL VOLUME 81.7 fl (80-96); NEUTROPHILS 59.7 % (42.8-82.8); PLATELET COUNT 155 K/MM3 (134-434); RDW 16.9 % (11.6-15.6)
[2017-03-31 08:16] LABS: ALBUMIN 3.4 g/dl (3.4-5.0); ANION GAP 7 (8-16); CALCIUM 8.5 mg/dL (8.5-10.1); CO2 29 mmol/L (21-32); CREATININE 1.5 mg/dL (0.55-1.02); GLUCOSE,RANDOM 90 mg/dL (74-106); MAGNESIUM 2.1 mg/dL (1.8-2.4); PHOSPHOROUS 4.3 mg/dL (2.5-4.9); SGOT/AST 8 U/L (15-37); SGPT/ALT 17 U/L (12-78)
[2017-03-31 08:27] LABS: ALK PHOS 95 U/L (45-117); BILIRUBIN,TOTAL 0.3 mg/dL (0.2-1.0); THYROID STIMULATING HORMONE 1.53 uIU/ml (0.358-3.74); TOT PROT 7.1 g/dl (6.4-8.2)
--- NOTE | 2017-03-31 09:46 | CONSULT ---
Consult - text type - Consultation Consultation Note: Cardiology 51-year-old female brought in by ambulance to the emergency department status post fall/syncope. Patient states that she went up to smoke on the roof of her building. She became lightheaded and passed out. She reports LOC of approximately 10 minutes, however there was no clock on the roof and this was an unwitnessed fall. On presentation to ED, patient stated she felt lightheaded , had a headache, and had "pain all over." She also reported chest pain x 6 hours. Her last cocaine use was . During the course of her ED stay, patient reported feeling depressed, hopeless and wanting to hurt herself. Utox positive for opiates, amphetamines, MDMA, cocaine social substance and cigarette abuse allergy ASA FH ? PMH ? CAD, ? [place], ? CVA/TIA, asthma, COPD, bipolar disorder, schizophrenia, HTN, HLD, hypothyroidism, DM, morbid obesity, cocaine use, PUD, PTSD, migraines Surgery:? PE: vitals stable normal cardio-pulmonary exam abdomen soft no leg edema Impression: atypical cardiac symptoms Dizziness and syncope No AK or CHF or arrythmia EKG NSR, low R diffusely, borderline QTc CXR normal telemetry NSR, PAC's Rec: Echocardiogram TSH Stress Echocardiogram or Nuclear stress test ( ? if she will be able to )
[2017-03-31] MEDS ORDERED: BUDESONIDE/FORMETEROL FUMARATE 80/4.5 mcg INHALER IH SCH (10:00)
[2017-03-31] MEDS ORDERED: POLYETHYLENE GLYCOL 3350 119 GM BTL PO SCH (10:00)
[2017-03-31] MEDS ORDERED: PANTOPRAZOLE 40 MG TABLET (FP) PO SCH (10:00)
[2017-03-31] MEDS ORDERED: LEVOTHYROXINE NA 100 MCG TABLET (FP) PO SCH (10:00)
[2017-03-31] MEDS: DIVALPROEX SODIUM 500 MG TABLET E.C. PO SCH ×2 (11:13→22:39)
[2017-03-31] MEDS: FUROSEMIDE 40 MG TABLET (FP) PO SCH (11:13)
[2017-03-31] MEDS: FLUoxetine HCL 20 MG CAPSULE (FP) PO SCH (11:14)
[2017-03-31] MEDS: BENZTROPINE MESYLATE 0.5 MG TABLET (FP) PO SCH ×2 (11:15→22:38)
[2017-03-31] MEDS: APIXABAN 5 MG TABLET PO SCH ×2 (11:15→22:38)
[2017-03-31] MEDS: ALBUTEROL SO4 18 GM HFA INHALER IH SCH ×3 (11:16→17:58)
--- NOTE | 2017-03-31 13:47 | PN ---
Physical Exam: SUBJECTIVE: Patient seen and examined. RN reported patient was oob earlier today , able to get to commode, walk a few steps around the room. This afternoon, RN noticed patient had not eaten her lunch and was somnolent. Found patient in bed. Breathing was unlabored. Afebrile. Vital signs stable. Responded to voice, opened eyes to her name, but would then close her eyes again. Responded to minimial painful stimuli, saying, loudly, "Ow." Stat CT head performed, negative. OBJECTIVE: Vital Signs Period Temp Pulse Resp BP Sys/Schultz Pulse Ox Last 24 Hr 97.2 F-98.9 F 82-100 16-22 111-126/62-78 95-97 GENERAL/NEURO: The patient appears to be sleepy but responds to voice and painful stimuli. Does not answer questions. HEAD: Normal with no signs of trauma. LUNGS: CTA HEART: Regular rate and rhythm, S1, S2 without murmur, rub or gallop. ABDOMEN: Soft, nontender, nondistended EXTREMITIES: 2+ pulses, warm, well-perfused, no edema. Laboratory Results - last 24 hr 03/30/17 03/30/17 03/30/17 14:25 15:25 17:17 WBC RBC Hgb Hct MCV MCH MCHC RDW Plt Count MPV Neutrophils % Lymphocytes % Monocytes % Eosinophils % Basophils % Sodium Potassium Chloride Carbon Dioxide Anion Gap BUN Creatinine Creat Clearance w eGFR POC Glucometer 87 Random Glucose Calcium Phosphorus Magnesium Total Bilirubin AST ALT Alkaline Phosphatase Troponin I Cancelled < 0.02 Total Protein Albumin TSH 03/30/17 03/31/17 03/31/17 22:36 05:20 05:20 WBC 9.0 RBC 4.40 Hgb 12.6 Hct 35.9 MCV 81.7 MCH 28.6 MCHC 35.0 RDW 16.9 H Plt Count 155 MPV 11.0 Neutrophils % 59.7 Lymphocytes % 32.7 D Monocytes % 5.6 Eosinophils % 1.5 Basophils % 0.5 Sodium 140 Potassium 4.1 Chloride 104 Carbon Dioxide 29 Anion Gap 7 L BUN 15 Creatinine 1.5 H Creat Clearance w eGFR 36.76 POC Glucometer 114 Random Glucose 90 D Calcium 8.5 Phosphorus 4.3 Magnesium 2.1 Total Bilirubin 0.3 D AST 8 L D ALT 17 Alkaline Phosphatase 95 Troponin I Total Protein 7.1 Albumin 3.4 TSH 1.53 03/31/17 03/31/17 06:36 11:10 WBC RBC Hgb Hct MCV MCH MCHC RDW Plt Count MPV Neutrophils % Lymphocytes % Monocytes % Eosinophils % Basophils % Sodium Potassium Chloride Carbon Dioxide Anion Gap BUN Creatinine Creat Clearance w eGFR POC Glucometer 111 125 Random Glucose Calcium Phosphorus Magnesium Total Bilirubin AST ALT Alkaline Phosphatase Troponin I Total Protein Albumin TSH Current Medications Generic Name Dose Route Start Last Admin Trade Name Freq PRN Reason Stop Dose Admin Albuterol Sulfate 2 puff 03/30/17 13:45 03/31/17 17:58 Ventolin Hfa Inhaler - IH Not Given Q4H BHARAT Apixaban 5 mg 03/30/17 13:45 03/31/17 11:15 Eliquis - PO 5 mg BID BHARAT Administration Atorvastatin Calcium 20 mg 03/30/17 22:00 03/30/17 22:32 Lipitor - PO 20 mg HS BHARAT Administration Benztropine Mesylate 0.5 mg 03/30/17 13:45 03/31/17 11:15 Cogentin - PO 0.5 mg BID BHARAT Administration Budesonide/Formoterol Fumarate 1 puff 03/31/17 10:00 03/31/17 11:14 Symbicort 80/4.5mcg - IH 1 inh DAILY BHARAT Administration Bupropion HCl 150 mg 03/31/17 10:00 03/31/17 10:00 Wellbutrin Xl - PO Not Given DAILY BHARAT Clonazepam 1 mg 03/30/17 13:54 Klonopin - PO BID PRN ANXIETY Divalproex Sodium 250 mg 03/30/17 22:00 03/30/17 23:07 Depakote - PO 250 mg HS BHARAT Administration Divalproex Sodium 500 mg 03/30/17 14:49 03/31/17 11:13 Depakote - PO 500 mg BID BHARAT Administration Docusate Sodium 300 mg 03/30/17 22:00 03/30/17 22:31 Colace - PO 300 mg HS BHARAT Administration Fluoxetine HCl 40 mg 03/31/17 10:00 03/31/17 11:14 Prozac - PO 40 mg DAILY BHARAT Administration Gabapentin 600 mg 03/30/17 15:00 03/31/17 14:00 Neurontin - PO Not Given TID BHARAT Sodium Chloride 1,000 mls @ 75 mls/hr 03/30/17 14:00 03/31/17 14:00 Normal Saline - IV Not Given ASDIR [facility] Insulin Aspart 0 units 03/30/17 16:30 03/31/17 17:57 Novolog Vial SQ Not Given ACHS [facility] Protocol Levothyroxine Sodium 100 mcg 03/31/17 07:00 03/31/17 06:30 Synthroid - PO 100 mcg DAILY@0700 BHARAT Administration Morphine Sulfate 30 mg 03/30/17 15:15 03/31/17 14:00 Ms Contin - PO Not Given TID [facility] Pantoprazole Sodium 40 mg 03/31/17 10:00 03/31/17 11:12 Protonix - PO 40 mg DAILY BHARAT Administration Polyethylene Glycol 17 gm 03/31/17 10:00 03/31/17 11:14 Miralax (For Daily Use) - PO 17 g DAILY BHARAT Administration Senna 2 tab 03/30/17 22:00 03/30/17 22:33 Senna - PO 2 tab HS BHARAT Administration ASSESSMENT/PLAN: 51 year-old female with a PMH significant for HTN, HLD, CAD s/p [place], h/o CVA/TIA , migraines, asthma/COPD (current smoker), NIDDM, hypothyroidism, PUD, bipolar disorder, schizophrenia, and polysubstance abuse. Placed on observation following a syncopal episode. Syncope --r/o ACS: troponins negative x 2; echo and stress tomorrow; cardiology following --US carotids no significant atherosclerois or hemodynamically significan stenosis --orthostatics qshift --CT head neg x 3 --possible that episode of somnolence this afternoon was from oversedation; hold MS Contin, restart at a lower dose Hypertension --stop metoprolol due to utox positive for cocaine --BP is well-controlled Hyperlipidemia --continue Lipitor CAD s/p [place] --allergic to ASA; continue statin; no beta blockers h/o CVA/TIA --continue Eliquis SIMRAN --Cr trending up --hold Lasix --renal consult requested Asthma/COPD --continue symbicort, albuterol MDI NIDDM --Novolog sliding scale coverage Hypothyroidism --continue levothyroxine --TSH wnl PUD --Protonix PO Bipolar disorder Schizophrenia --hold seroquel due to prolonged QTc --continue Depakote, Wellbutrin, Prozac, clonazepam PRN Polysubstance abuse --utox positive for opiates, amphetamines, MDMA, cocaine --no signs or symptoms of withdrawal, monitor closely DVT prophylaxis: on Eliquis Visit type - Emergency Visit Emergency Visit: Yes ED Registration Date: 03/30/17 Care time: The patient presented to the Emergency Department on the above date and was hospitalized for further evaluation of their emergent condition. - New Patient This patient is new to me today: No - Critical Care Critical Care patient: No
[2017-03-31] MEDS: SODIUM CHLORIDE 1,000 ML IV SCH (14:00)
[2017-03-31 19:12] LABS: URINE APPEARANCE CLEAR; URINE BILIRUBIN NEGATIVE (NEGATIVE); URINE BLOOD NEGATIVE (NEGATIVE); URINE COLOR YELLOW; URINE GLUCOSE (UA) NEGATIVE (NEGATIVE); URINE KETONE NEGATIVE (NEGATIVE); URINE NITRITE NEGATIVE (NEGATIVE); URINE PROTEIN NEGATIVE (NEGATIVE); URINE UROBILINOGEN NEGATIVE mg/dL (0.2-1.0)
[2017-03-31] MEDS: DIVALPROEX SODIUM 250 MG TABLET E.C. (FP) PO SCH (22:39)
--- NOTE | 2017-03-31 22:41 | HOSP ---
Subjective - Review of Symptoms Events since last encounter: Hospitalist Encounter Notified by RN that the patient is very restless and is complaining of generalized itching Arrived to bedside, patient is alert to name only, follows simple commands. Patient reports generalized pruritus Advised RN to give patient her psychotropic meds, ordered benadryl for itching Will continue to monitor Physical Examination Vital Signs: Vital Signs Temperature 97.5 F L 03/31/17 13:00 Pulse Rate 104 H 03/31/17 13:00 Respiratory Rate 16 03/31/17 13:00 Blood Pressure 150/90 03/31/17 13:00 O2 Sat by Pulse Oximetry (%) 94 L 03/31/17 13:00 Labs: CBC, BMP 03/31/17 05:20 03/31/17 05:20
[2017-03-31] MEDS: ATORVASTATIN CA 20 MG TABLET (FP) PO SCH (22:48)
[2017-03-31] MEDS: SENNOSIDES 8.6MG TABLET (FP) PO SCH (22:49)
[2017-03-31] MEDS: DOCUSATE SODIUM 100 MG CAPSULE (FP) PO SCH (22:49)
[2017-03-31 23:19] LABS: URINE LEUK ESTERASE Negative (NEGATIVE)
[2017-04-01] MEDS ORDERED: ONDANSETRON *ODT* 4 MG TABLET SL ONE (02:52)
[2017-04-01] MEDS: INSULIN (NOVOLOG) ASPART 100 UNITS/ML 10ML VIAL SQ SCH (06:11)
[2017-04-01] MEDS: LEVOTHYROXINE NA 100 MCG TABLET (FP) PO SCH (06:12)
[2017-04-01] MEDS: BENZTROPINE MESYLATE 0.5 MG TABLET (FP) PO SCH (10:39)
[2017-04-01] MEDS: APIXABAN 5 MG TABLET PO SCH (10:39)
[2017-04-01] MEDS: DIVALPROEX SODIUM 500 MG TABLET E.C. PO SCH (10:40)
[2017-04-01] MEDS: FLUoxetine HCL 20 MG CAPSULE (FP) PO SCH (10:40)
[2017-04-01 11:42] VITALS: BP 123/74; PULSE 77; TEMP 97.3
--- NOTE | 2017-04-01 14:45 | EKG ---
Test Reason : Blood Pressure : / mmHG Vent. Rate : 099 BPM Atrial Rate : 099 BPM P-R Int : 134 ms QRS Dur : 086 ms QT Int : 364 ms P-R-T Axes : 036 008 020 degrees QTc Int : 467 ms NORMAL SINUS RHYTHM NORMAL ECG WHEN COMPARED WITH ECG OF 30-MAR-2017 03:08, NO SIGNIFICANT CHANGE WAS FOUND Confirmed by NELI MARIN MD ([id number]) on 04/01/2017 2:45:49 PM Referred By: Tariq KUHN Confirmed By:NELI MARIN MD
--- NOTE | 2017-04-01 17:18 | DS ---
Physical Exam: SUBJECTIVE: Patient seen and examined OBJECTIVE: Vital Signs Period Temp Pulse Resp BP Sys/Schultz Pulse Ox Last 24 Hr 97.3 F-98.5 F 75-92 16-20 120-134/55-84 96-96 PHYSICAL EXAM GENERAL: The patient is awake, alert, and fully oriented, in no acute distress. HEAD: Normal with no signs of trauma. EYES: PERRL, extraocular movements intact, sclera anicteric, conjunctiva clear. ENT: Ears normal, nares patent, oropharynx clear without exudates, moist mucous membranes. NECK: Trachea midline, full range of motion, supple. LUNGS: Breath sounds equal, clear to auscultation bilaterally, no wheezes, no crackles, no accessory muscle use. HEART: Regular rate and rhythm, S1, S2 without murmur, rub or gallop. ABDOMEN: Soft, nontender, nondistended, normoactive bowel sounds, no guarding, no rebound, no hepatosplenomegaly, no masses. EXTREMITIES: 2+ pulses, warm, well-perfused, no edema. NEUROLOGICAL: Cranial nerves II through XII grossly intact. Normal speech, gait not observed. PSYCH: Normal mood, normal affect. SKIN: Warm, dry, normal turgor, no rashes or lesions noted. LABS Laboratory Results - last 24 hr 03/31/17 03/31/17 03/31/17 17:33 18:56 21:29 POC Glucometer 101 120 Urine Color Yellow Urine Appearance Clear Urine pH 5.0 Ur Specific [place] 1.015 Urine Protein Negative Urine Glucose (UA) Negative Urine Ketones Negative Urine Blood Negative Urine Nitrite Negative Urine Bilirubin Negative Urine Urobilinogen Negative Ur Leukocyte Esterase Negative HOSPITAL COURSE: Date of Admission:03/30/17 Date of Discharge: 04/01/17 Discharge Summary Reason For Visit: SYNCOPE Current Active Problems Chest pain at rest (Acute) Weakness (Acute) Asthma exacerbation (Chronic) Bipolar 1 disorder, depressed (Chronic) Bipolar disorder (Chronic) COPD exacerbation (Chronic) Cigarette nicotine dependence with nicotine-induced disorder (Chronic) 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 (Chronic) Hyperlipidemia (Chronic) Knee pain (Chronic) Leg pain, bilateral (Chronic) Morbid obesity (Chronic) Neurological muscle weakness (Chronic) ARVIND treated with BiPAP (Chronic) Condition: Unchanged/Unknown - Instructions Referrals: Fernando Serrano [Primary Care Provider] - Disposition: AGAINST MEDICAL ADVICE - Home Medications Comprehensive Discharge Medication List: Ambulatory Orders Albuterol Sulfate Inhaler - [Ventolin HFA Inhaler -] 2 puff IH Q4H 03/15/17 Benztropine Mesylate [Cogentin -] 0.5 mg PO BID 03/15/17 Budesonide/Formeterol Fumarate [SYMBICORT 80/4.5mcg -] 1 inh PO DAILY 03/15/17 Bupropion HCl [Bupropion HCl Sr] 150 mg PO DAILY 03/15/17 Clonazepam [Klonopin] 1 mg PO BID 03/15/17 Divalproex Sodium [Depakote] 500 mg PO BID 03/15/17 Docusate Sodium [Colace -] 300 mg PO HS 03/15/17 Ferrous Sulfate 325 mg PO DAILY 03/15/17 Furosemide [Lasix] 40 mg PO DAILY 03/15/17 Gabapentin [Neurontin] 600 mg PO TID 03/15/17 Metformin HCl 1,000 mg PO BID 03/15/17 Metoprolol Succinate [Toprol XL -] 25 mg PO BID 03/15/17 Morphine *Sr* [MS Contin -] 30 mg PO Q6H 03/15/17 Nitroglycerin [Nitrostat] 0.4 mg SL PRN PRN 03/15/17 Polyethylene Glycol 3350 [Miralax 119 gm Btl -] 17 gm PO DAILY 03/15/17 Quetiapine Fumarate [Seroquel] 200 tab PO HS 03/15/17 Sennosides [Senna -] 2 tab PO HS 03/15/17 Simvastatin [Zocor -] 40 mg PO HS 03/15/17 Apixaban [Eliquis] 5 mg PO BID 03/16/17 Divalproex [Depakote -] 250 mg PO HS 03/16/17 Fluoxetine HCl 40 mg PO DAILY 03/16/17 Levothyroxine [Synthroid -] 500 mcg PO DAILY 03/16/17 Pantoprazole Sodium [Protonix] 40 mg PO DAILY 03/16/17
== END 2017-04-01 11:30 | disposition left against medical advice (07) ==
LOC: JER 02:29 → JERBED 10:43 → J4W 16:58
PROVIDERS: ADMIT Hospitalist; ATTEND Nurse Practitioner Acute Care
PROC: 5A09357 Assistance with Respiratory Ventilation, Less than 24 Consecutive Hours, Continuous Positive Airway Pressure (ICD-10-PCS; principal; 2017-03-30)
PROC: 3E0F7GC Introduction of Other Therapeutic Substance into Respiratory Tract, Via Natural or Artificial Opening (ICD-10-PCS; 2017-03-30)
DX: R55 Syncope and collapse (principal); R07.9 Chest pain, unspecified; F99 Mental disorder, not otherwise specified; S09.90XA Unspecified injury of head, initial encounter; I10 Essential (primary) hypertension; I25.10 Atherosclerotic heart disease of native coronary artery without angina pectoris; I25.2 Old myocardial infarction; E78.5 Hyperlipidemia, unspecified; E03.9 Hypothyroidism, unspecified; E11.9 Type 2 diabetes mellitus without complications; G47.33 Obstructive sleep apnea (adult) (pediatric); R53.1 Weakness; J44.1 Chronic obstructive pulmonary disease with (acute) exacerbation; E66.01 Morbid (severe) obesity due to excess calories; F31.9 Bipolar disorder, unspecified; F20.0 Paranoid schizophrenia; F19.10 Other psychoactive substance abuse, uncomplicated; K27.9 Peptic ulcer, site unspecified, unspecified as acute or chronic, without hemorrhage or perforation; F43.10 Post-traumatic stress disorder, unspecified; D64.9 Anemia, unspecified; N17.9 Acute kidney failure, unspecified; F17.210 Nicotine dependence, cigarettes, uncomplicated; J45.901 Unspecified asthma with (acute) exacerbation; Z91.81 History of falling; Z79.01 Long term (current) use of anticoagulants; Z91.14 Patient's other noncompliance with medication regimen; Z88.1 Allergy status to other antibiotic agents; Z88.6 Allergy status to analgesic agent; Z88.0 Allergy status to penicillin; Z88.2 Allergy status to sulfonamides; Z88.8 Allergy status to other drugs, medicaments and biological substances; Z91.012 Allergy to eggs; Z79.84 Long term (current) use of oral hypoglycemic drugs; Z68.35 Body mass index [BMI] 35.0-35.9, adult; Z86.73 Personal history of transient ischemic attack (TIA), and cerebral infarction without residual deficits; W18.39XA Other fall on same level, initial encounter; Y93.9 Activity, unspecified; Y92.9 Unspecified place or not applicable
CPT/HCPCS: 36415; 70450-TC; 71010-TC; 80053; 80307; 81003; 81015; 82550; 82553; 83735; 83880; 84100; 84443; 84484; 84703; 85025; 85610; 87086; 93005; 93010; 93970-TC; 94640; 94660; 99285-25; G0378; G0480

== ENCOUNTER 2017-04-06 09:49 | Emergency (ER) | payer OTHER ==
[2017-04-06 10:10] VITALS: BMI 35.4
[2017-04-06 10:42] LABS: EOSINOPHIL 0.3 % (0-4.5); MCH 28.5 pg (25.7-33.7); MEAN CELL VOLUME 81.4 fl (80-96); MEAN PLT VOLUME 10.8 fl (7.5-11.1); NEUTROPHILS 67.4 % (42.8-82.8); PLATELET COUNT 158 K/MM3 (134-434); RDW 17.5 % (11.6-15.6); WHITE BLOOD COUNT 8.7 K/mm3 (4.0-10.0)
[2017-04-06 11:12] LABS: ALBUMIN 3.9 g/dl (3.4-5.0); ALK PHOS 103 U/L (45-117); ANION GAP 9 (8-16); BILIRUBIN,TOTAL 0.6 mg/dL (0.2-1.0); CO2 29 mmol/L (21-32); CREATININE 1.5 mg/dL (0.55-1.02); GLUCOSE,RANDOM 99 mg/dL (74-106); SGOT/AST 19 U/L (15-37); SGPT/ALT 20 U/L (12-78); TOT PROT 7.9 g/dl (6.4-8.2)
[2017-04-06 11:13] LABS: CPK 567 IU/L (26-192); TROPONIN I < 0.02 ng/ml (0.00-0.05)
[2017-04-06] MEDS ORDERED: ACETAMINOPHEN 325 MG TABLET (FP) PO ONE (11:16)
--- NOTE | 2017-04-06 11:21 | PDOC ---
Attending Attestation - Resident Resident Name: Jesus Ceron - ED Attending Attestation I have performed the following: I have examined & evaluated the patient, The case was reviewed & discussed with the resident, I agree w/resident's findings & plan, Exceptions are as noted - HPI HPI: 04/06/17 11:29 51y F hx of CAD, [place], CVA/TIA with residual L sided weakness,a sthma, copd, bipolar disorder, schizophrenia,htn, hl, hypothyroidism, dm, polysubstance abuse , ptsd, presents with chest pain. Pt states that she was using crack last night , marijuana and etoh last night as she felt lonely and sad (no SI/SA or HI). She notes her chest pain is L sided sharp, intermittent lasting for approx hr denies any diaphoresis, exertional sob. pts exam reveals mild reproducible pain to her L chest general: no distress, pulmonary: cta no wheezing/rales cardiac - rrr, no m/r/g abd: soft, nondistended, nontender, no rebound/guarding ext: mild edema symmetrically no tenderness suspect msk pain vs acs.possible cociane cp will obtain ekg, trops, cxr pt alelrgic to ASA will reassess - Physicial Exam PE: 04/07/17 15:32 see above - Medical Decision Making 04/06/17 17:25 trop neg x 2 pt feeling improved will dc with pmd fu return precautions were discussed Heart Score/ECG Review - ECG Impressions Comment:: 04/06/17 17:33 Twelve-lead EKG was performed and reviewed by me. There is normal sinus rhythm with a normal rate. rate of 80 The axis is normal. The intervals are normal. There is normal R wave progression There are no ST or T wave abnormalities. Impression: Normal twelve-lead EKG
[2017-04-06] MEDS ORDERED: traMADol HCL 50 MG TABLET PO ONE (12:36)
[2017-04-06] MEDS ORDERED: diphenhydrAMINE HCL 50 MG CAPSULE PO ONE (12:37)
[2017-04-06] MEDS ORDERED: diphenhydrAMINE HCL 25 MG CAPSULE (FP) PO ONE (12:53)
--- NOTE | 2017-04-06 16:08 | PDOC ---
History of Present Illness - General History Source: Patient Exam Limitations: No Limitations <Jesus Ceron - Last Filed: 04/10/17 14:59> <Boom Vega - Last Filed: 04/11/17 07:11> - General Chief Complaint: Chest Pain Stated Complaint: CHEST PAIN Time Seen by Provider: 04/06/17 10:10 - History of Present Illness Initial Comments: 04/06/17 16:44 51F (Jesus Ceron) Past History - Past Medical History Anemia: Yes Asthma: Yes Cancer: No Cardiac Disorders: Yes (chest pain, CAD, DC x3) CVA: Yes (CVA x3, TIA, left sided residual) COPD: Yes CHF: No Dementia: No Diabetes: Yes GI Disorders: Yes (PEPTIC ULCER) Disorders: No HTN: Yes Hypercholesterolemia: Yes Liver Disease: No Psychiatric Problems: Yes (BIPOLAR, POST TRAMATIC STRESS) Seizures: No Thyroid Disease: No - Surgical History Abdominal Surgery: Yes Appendectomy: No Cardiac Surgery: No Cholecystectomy: No Lung Surgery: No Neurologic Surgery: No Orthopedic Surgery: No - Immunization History Immunization Up to Date: No - Suicide/Smoking/Psychosocial Hx Smoking Status: Yes Smoking History: Current every day smoker Have you smoked in the past 12 months: Yes Number of Cigarettes Smoked Daily: 3 If you are a former smoker, when did you quit?: 09/18/2014 Cigars Per Day: 20 Information on smoking cessation initiated: No 'Breaking Loose' booklet given: 10/30/14 Hx Alcohol Use: Yes Drug/Substance Use Hx: Yes Substance Use Type: Alcohol, Cocaine, Marijuana Hx Substance Use Treatment: Yes <Jesus Ceron - Last Filed: 04/10/17 14:59> <Boom Vega - Last Filed: 04/11/17 07:11> - Past Medical History Allergies/Adverse Reactions: Allergies Allergy/AdvReac Type Severity Reaction Status Date / Time hydromorphone HCl Allergy Intermediate Itching Verified 04/06/17 10:05 [From Dilaudid] amoxicillin [Amoxicillin] Allergy Verified 04/06/17 10:05 ampicillin Allergy Verified 04/06/17 10:05 aspirin Allergy Difficulty Verified 04/06/17 10:05 Breathing cranberry Allergy Rash Verified 04/06/17 10:05 doxycycline Allergy Rash Verified 04/06/17 10:05 Fish Containing Products Allergy Difficulty Verified 04/06/17 10:05 Breathing haloperidol [From Haldol] Allergy Rash Verified 04/06/17 10:05 haloperidol lactate Allergy Rash Verified 04/06/17 10:05 [From Haldol] ibuprofen [From Motrin] Allergy Difficulty Verified 04/06/17 10:05 Breathing ketorolac tromethamine Allergy Rash Verified 04/06/17 10:05 [From Toradol] levofloxacin [From Levaquin] Allergy Rash Verified 04/06/17 10:05 milk Allergy Difficulty Verified 04/06/17 10:05 Breathing oxycodone HCl [From Percocet] Allergy Rash Verified 04/06/17 10:05 Penicillins Allergy Difficulty Verified 04/06/17 10:05 Breathing sulfamethoxazole Allergy Rash Verified 04/06/17 10:05 [From Bactrim] tomato [Tomato] Allergy Hives Verified 04/06/17 10:05 trimethoprim [From Bactrim] Allergy Verified 04/06/17 10:05 warfarin sodium Allergy Verified 04/06/17 10:05 [From Coumadin] Gravy Allergy Unknown Uncoded 04/06/17 10:05 Cranberry/Cranberry juice Allergy Uncoded 04/06/17 10:05 Home Medications: Ambulatory Orders Albuterol Sulfate Inhaler - [Ventolin HFA Inhaler -] 2 puff IH Q4H 03/15/17 Benztropine Mesylate [Cogentin -] 0.5 mg PO BID 03/15/17 Budesonide/Formeterol Fumarate [SYMBICORT 80/4.5mcg -] 1 inh PO DAILY 03/15/17 Bupropion HCl [Bupropion HCl Sr] 150 mg PO DAILY 03/15/17 Clonazepam [Klonopin] 1 mg PO BID 03/15/17 Divalproex Sodium [Depakote] 500 mg PO BID 03/15/17 Docusate Sodium [Colace -] 300 mg PO HS 03/15/17 Ferrous Sulfate 325 mg PO DAILY 03/15/17 Furosemide [Lasix] 40 mg PO DAILY 03/15/17 Gabapentin [Neurontin] 600 mg PO TID 03/15/17 Metformin HCl 1,000 mg PO BID 03/15/17 Metoprolol Succinate [Toprol XL -] 25 mg PO BID 03/15/17 Morphine *Sr* [MS Contin -] 30 mg PO Q6H 03/15/17 Nitroglycerin [Nitrostat] 0.4 mg SL PRN PRN 03/15/17 Polyethylene Glycol 3350 [Miralax 119 gm Btl -] 17 gm PO DAILY 03/15/17 Quetiapine Fumarate [Seroquel] 200 tab PO HS 03/15/17 Sennosides [Senna -] 2 tab PO HS 03/15/17 Simvastatin [Zocor -] 40 mg PO HS 03/15/17 Apixaban [Eliquis] 5 mg PO BID 03/16/17 Divalproex [Depakote -] 250 mg PO HS 03/16/17 Fluoxetine HCl 40 mg PO DAILY 03/16/17 Levothyroxine [Synthroid -] 500 mcg PO DAILY 03/16/17 Pantoprazole Sodium [Protonix] 40 mg PO DAILY 03/16/17 Cardiac Specific PMH - Complaint Specific PMHX Pacemaker: No <Jesus Ceron - Last Filed: 04/10/17 14:59> Review of Systems - Review of Systems Able to Perform ROS?: Yes Constitutional: No: Chills, Diaphoresis, Fever HEENTM: No: Blurred Vision, Double Vision Respiratory: No: Cough, Orthopnea, Shortness of Breath, SOB with Exertion, Wheezing Cardiac (ROS): Yes: Chest Pain. No: Irregular Heart Rate, Syncope, Chest Tightness ABD/GI: No: Nausea, Vomiting : No: Dysuria, Frequency Musculoskeletal: No: Back Pain Neurological: No: Headache, Numbness, Weakness <Boom Vega - Last Filed: 04/11/17 07:11> - Vital Signs Last Vital Signs Temp Pulse Resp BP Pulse Ox 98.4 F 76 20 120/65 100 04/06/17 17:30 04/06/17 17:30 04/06/17 17:30 04/06/17 17:30 04/06/17 17:30 Heart Score/ECG Review <Jesus Ceron - Last Filed: 04/10/17 14:59> <Boom Vega - Last Filed: 04/11/17 07:11> - ECG Impressions Comment:: 04/06/17 17:26 Twelve-lead EKG was performed and reviewed by me. There is normal sinus rhythm with a normal rate. rate of 80 The axis is normal. The intervals are normal. There is normal R wave progression There are no ST or T wave abnormalities. Impression: Normal twelve-lead EKG (Boom Vega) ED Treatment Course - LABORATORY CBC & Chemistry Diagram: 04/06/17 10:33 04/06/17 10:33 <Jesus Ceron - Last Filed: 04/10/17 14:59> - LABORATORY CBC & Chemistry Diagram: 04/06/17 10:33 04/06/17 10:33 <Boom Vega - Last Filed: 04/11/17 07:11> - ADDITIONAL ORDERS Additional order review: 04/06/17 10:33 RBC 4.69 MCV 81.4 MCHC 35.0 RDW 17.5 H MPV 10.8 Neutrophils % 67.4 Lymphocytes % 27.3 Monocytes % 4.0 Eosinophils % 0.3 Basophils % 1.0 - RADIOLOGY Radiology Studies Ordered: Category Date Time Status CHEST X-RAY PORTABLE* [RAD] Stat Radiology 04/06/17 10:12 Completed - Medications Given in the ED: ED Medications Discontinued Medications Generic Name Dose Route Start Last Admin Trade Name Winston PRN Reason Stop Dose Admin Acetaminophen 650 mg 04/06/17 11:16 04/06/17 11:30 Tylenol - PO 04/06/17 11:17 650 mg ONCE ONE Administration Diphenhydramine HCl 50 mg 04/06/17 12:37 04/06/17 12:58 Benadryl - PO 04/06/17 12:38 50 mg ONCE ONE Administration Tramadol HCl 50 mg 04/06/17 12:36 04/06/17 12:58 Ultram - PO 04/06/17 12:37 50 mg ONCE ONE Administration *DC/Admit/Observation/Transfer - Discharge Dispostion Admit: No <Jesus Ceron - Last Filed: 04/10/17 14:59> <Bomo Vega - Last Filed: 04/11/17 07:11> Diagnosis at time of Disposition: Atypical chest pain - Discharge Dispostion Disposition: HOME Condition at time of disposition: Improved - Patient Instructions Printed Discharge Instructions: DI for Atypical Chest Pain Additional Instructions: Come back to Emergency Department for any new, concerning or worsening symptom. Print Language: ROMANSH Addendum entered and electronically signed by Jesus Ceron, RES 04/06/17 19:16: History of Present Illness - General Chief Complaint: Chest Pain Stated Complaint: CHEST PAIN Time Seen by Provider: 04/06/17 10:10 History Source: Patient Exam Limitations: Physical Impairment - History of Present Illness Initial Comments: 04/06/17 19:16 51y F hx of CAD, DC, CVA/TIA with residual L sided weakness,a sthma, copd, bipolar disorder, schizophrenia,htn, hl, hypothyroidism, dm, polysubstance abuse , ptsd, presents with chest pain. Pt states that she was using crack last night , marijuana and etoh last night as she felt lonely and sad (no SI/SA or HI). She notes her chest pain is L sided sharp, intermittent lasting for approx hr denies any diaphoresis, exertional sob. Addendum entered and electronically signed by Jesus Ceron, RESIDENT 04/10/17 14 :59: History of Present Illness - General Chief Complaint: Chest Pain Stated Complaint: CHEST PAIN Time Seen by Provider: 04/06/17 10:10 History Source: Patient - History of Present Illness Initial Comments: 04/10/17 14:59 51y F hx of CAD, DC, CVA/TIA with residual L sided weakness,a sthma, copd, bipolar disorder, schizophrenia,htn, hl, hypothyroidism, dm, polysubstance abuse , ptsd, presents with chest pain. Pt states that she was using crack last night , marijuana and etoh last night as she felt lonely and sad (no SI/SA or HI). She notes her chest pain is L sided sharp, intermittent lasting for approx hr denies any diaphoresis, exertional sob. pts exam reveals mild reproducible pain to her L chest general: no distress, pulmonary: cta no wheezing/rales cardiac - rrr, no m/r/g abd: soft, nondistended, nontender, no rebound/guarding ext: mild edema symmetrically no tenderness
[2017-04-06 16:11] LABS: CPK 399 IU/L (26-192); TROPONIN I < 0.02 ng/ml (0.00-0.05)
[2017-04-06 19:07] VITALS: BP 120/65; PULSE 76; TEMP 98.4
--- NOTE | 2017-04-10 13:08 | EKG ---
Test Reason : Blood Pressure : / mmHG Vent. Rate : 080 BPM Atrial Rate : 080 BPM P-R Int : 146 ms QRS Dur : 096 ms QT Int : 386 ms P-R-T Axes : 037 000 015 degrees QTc Int : 445 ms NORMAL SINUS RHYTHM EARLY R WAVE PROGRESSION WHEN COMPARED WITH ECG OF 31-MAR-2017 15:26, NO SIGNIFICANT CHANGE WAS FOUND Confirmed by JARRETT VALE MD ([id number]) on 04/10/2017 1:08:07 PM Referred By: Confirmed By:JARRETT VALE MD
== END 2017-04-06 18:16 | disposition home or self-care (01) ==
LOC: JER 09:49
DX: R07.89 Other chest pain (principal); I25.2 Old myocardial infarction; I25.10 Atherosclerotic heart disease of native coronary artery without angina pectoris; I10 Essential (primary) hypertension; I69.852 Hemiplegia and hemiparesis following other cerebrovascular disease affecting left dominant side; J45.909 Unspecified asthma, uncomplicated; J44.9 Chronic obstructive pulmonary disease, unspecified; E78.00 Pure hypercholesterolemia, unspecified; E03.9 Hypothyroidism, unspecified; E11.9 Type 2 diabetes mellitus without complications; Z79.84 Long term (current) use of oral hypoglycemic drugs; F31.9 Bipolar disorder, unspecified; F20.9 Schizophrenia, unspecified
CPT/HCPCS: 36415; 71010-TC; 80053; 82550; 82553; 84484; 85025; 93005; 93010; 99285-25

== ENCOUNTER 2017-04-24 09:46 | Emergency (ER) | payer OTHER ==
[2017-04-24 09:55] VITALS: TEMP 98.4; BMI 35.4
--- NOTE | 2017-04-24 10:03 | PDOC ---
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 Staff at [facility] report that the patient usually uses a walker at baseline, but got up today without the walker and fell backwards. Staff also reports that she hit the back of her head. Pt reports that she does not remember the fall and thinks she may have passed out. Staff at [facility] states that she did not pass out and initially did not want medical attention but 30 mins later was having upper back pain and asked for transfer to the ER. The patient currently reports neck pain and back pain. She states that she feels off and ligthheaded. Denies chest pain, SOB, palpitations. Denies fever, chills, nausea, vomiting. Denies headache, changes in vision. Allergies: hydromorphone HCl, amoxicillin, ampicillin, aspirin, doxycycline, fish, haloperidol, haloperidol lactate, ibuprofen, ketorolac tromethamine, levofloxacin, oxycodone HCl, milk, fish, penicillins, sulfamethoxazole, trimethoprim, warfarin, tomato Social hx: Alcohol abuse (reports 1 drink/day). Crack use (Last used 4 days ago) , Everyday tobacco use <Janice Pickard - Last Filed: 04/24/17 12:33> <Christina Yoder - Last Filed: 04/24/17 13:55> <Adonay Liz - Last Filed: 04/24/17 16:03> - General Chief Complaint: Syncope/Near Syncope Stated Complaint: FALL Time Seen by Provider: 04/24/17 10:02 Past History <Janice Pickard - Last Filed: 04/24/17 12:33> <Christina Yoder - Last Filed: 04/24/17 13:55> - Past Medical History Anemia: Yes Asthma: Yes Cancer: No Cardiac Disorders: Yes (chest pain, CAD, [place] x3) CVA: Yes (CVA x3, TIA, left sided residual) COPD: Yes CHF: No Dementia: No Diabetes: Yes GI Disorders: Yes (PEPTIC ULCER) Disorders: No HTN: Yes Hypercholesterolemia: Yes Liver Disease: No Psychiatric Problems: Yes (BIPOLAR, POST TRAMATIC STRESS) Seizures: No Thyroid Disease: No - Surgical History Abdominal Surgery: Yes Appendectomy: No Cardiac Surgery: No Cholecystectomy: No Lung Surgery: No Neurologic Surgery: No Orthopedic Surgery: No - Immunization History Immunization Up to Date: No - Suicide/Smoking/Psychosocial Hx Smoking Status: Yes Smoking History: Current every day smoker Have you smoked in the past 12 months: Yes Number of Cigarettes Smoked Daily: 3 If you are a former smoker, when did you quit?: 09/18/2014 Cigars Per Day: 20 Information on smoking cessation initiated: Yes 'Breaking Loose' booklet given: 10/30/14 Hx Alcohol Use: Yes Drug/Substance Use Hx: Yes Substance Use Type: Alcohol, Cocaine, Marijuana Hx Substance Use Treatment: Yes <Adonay Liz - Last Filed: 04/24/17 16:03> - Past Medical History Allergies/Adverse Reactions: Allergies Allergy/AdvReac Type Severity Reaction Status Date / Time hydromorphone HCl Allergy Intermediate Itching Verified 04/24/17 09:59 [From Dilaudid] amoxicillin [Amoxicillin] Allergy Verified 04/24/17 09:59 ampicillin Allergy Verified 04/24/17 09:59 aspirin Allergy Difficulty Verified 04/24/17 09:59 Breathing cranberry Allergy Rash Verified 04/24/17 09:59 doxycycline Allergy Rash Verified 04/24/17 09:59 Fish Containing Products Allergy Difficulty Verified 04/24/17 09:59 Breathing haloperidol [From Haldol] Allergy Rash Verified 04/24/17 09:59 haloperidol lactate Allergy Rash Verified 04/24/17 09:59 [From Haldol] ibuprofen [From Motrin] Allergy Difficulty Verified 04/24/17 09:59 Breathing ketorolac tromethamine Allergy Rash Verified 04/24/17 09:59 [From Toradol] levofloxacin [From Levaquin] Allergy Rash Verified 04/24/17 09:59 milk Allergy Difficulty Verified 04/24/17 09:59 Breathing oxycodone HCl [From Percocet] Allergy Rash Verified 04/24/17 09:59 Penicillins Allergy Difficulty Verified 04/24/17 09:59 Breathing sulfamethoxazole Allergy Rash Verified 04/24/17 09:59 [From Bactrim] tomato [Tomato] Allergy Hives Verified 04/24/17 09:59 trimethoprim [From Bactrim] Allergy Verified 04/24/17 09:59 warfarin sodium Allergy Verified 04/24/17 09:59 [From Coumadin] Gravy Allergy Unknown Uncoded 04/24/17 09:59 Cranberry/Cranberry juice Allergy Uncoded 04/24/17 09:59 Home Medications: Ambulatory Orders Albuterol Sulfate Inhaler - [Ventolin HFA Inhaler -] 2 puff IH Q4H 03/15/17 Benztropine Mesylate [Cogentin -] 0.5 mg PO BID 03/15/17 Budesonide/Formeterol Fumarate [SYMBICORT 80/4.5mcg -] 1 inh PO DAILY 03/15/17 Bupropion HCl [Bupropion HCl Sr] 150 mg PO DAILY 03/15/17 Clonazepam [Klonopin] 1 mg PO BID 03/15/17 Divalproex Sodium [Depakote] 500 mg PO BID 03/15/17 Docusate Sodium [Colace -] 300 mg PO HS 03/15/17 Ferrous Sulfate 325 mg PO DAILY 03/15/17 Furosemide [Lasix] 40 mg PO DAILY 03/15/17 Gabapentin [Neurontin] 600 mg PO TID 03/15/17 Metoprolol Succinate [Toprol XL -] 25 mg PO BID 03/15/17 Morphine *Sr* [MS Contin -] 30 mg PO Q6H 03/15/17 Nitroglycerin [Nitrostat] 0.4 mg SL PRN PRN 03/15/17 Polyethylene Glycol 3350 [Miralax 119 gm Btl -] 17 gm PO DAILY 03/15/17 Quetiapine Fumarate [Seroquel] 200 tab PO HS 03/15/17 Sennosides [Senna -] 2 tab PO HS 03/15/17 Simvastatin [Zocor -] 40 mg PO HS 03/15/17 Apixaban [Eliquis] 5 mg PO BID 03/16/17 Divalproex [Depakote -] 250 mg PO HS 03/16/17 Levothyroxine [Synthroid -] 500 mcg PO DAILY 03/16/17 Pantoprazole Sodium [Protonix] 40 mg PO DAILY 03/16/17 Fluoxetine HCl [Prozac -] 20 mg PO DAILY 04/24/17 Metformin HCl [Glucophage -] 500 mg PO BID 04/24/17 Review of Systems - Review of Systems Able to Perform ROS?: Yes Comments:: 04/24/17 12:33 GENERAL/CONSTITUTIONAL: No fever or chills. No weakness. HEAD, EYES, EARS, NOSE AND THROAT: No change in vision. No ear pain or discharge. No sore throat. GASTROINTESTINAL: No nausea, vomiting, diarrhea or constipation. GENITOURINARY: No dysuria, frequency, or change in urination. CARDIOVASCULAR: No chest pain or shortness of breath. RESPIRATORY: No cough, wheezing, or hemoptysis. MUSCULOSKELETAL: +neck pain, back pain. SKIN: No rash NEUROLOGIC: +lightheaded. No headache, loss of consciousness, or change in strength/sensation. ENDOCRINE: No increased thirst. No abnormal weight change. HEMATOLOGIC/LYMPHATIC: No anemia, easy bleeding, or history of blood clots. ALLERGIC/IMMUNOLOGIC: No hives or skin allergy. <Janice Pickard - Last Filed: 04/24/17 12:33> *Physical Exam - Vital Signs Last Vital Signs Temp Pulse Resp BP Pulse Ox 98.4 F 83 16 110/64 04/24/17 09:51 04/24/17 09:51 04/24/17 09:51 04/24/17 09:51 - Physical Exam Comments: 04/24/17 12:33 GENERAL: Awake, alert, and fully oriented, in no acute distress HEAD: No signs of trauma, patch of alopecia on crown of head EYES: PERRLA, EOMI, sclera anicteric, conjunctiva clear ENT: Auricles normal inspection, hearing grossly normal, nares patent, oropharynx clear without exudates. Moist mucosa NECK: Normal ROM, supple, no lymphadenopathy, JVD, or masses LUNGS: Breath sounds equal, clear to auscultation bilaterally. No wheezes, and no crackles HEART: Regular rate and rhythm, normal S1 and S2, no murmurs, rubs or gallops ABDOMEN: Soft, nontender, normoactive bowel sounds. No guarding, no rebound. No masses EXTREMITIES: Normal range of motion, no edema. No clubbing or cyanosis. No cords , erythema, or tenderness BACK: There is a midline scar on the thoracic spine that is clean, dry and well healed. + midline spinal tenderness in cervical/thoracic region. No midline lumbar ttp. NEUROLOGICAL: Normal speech, cranial nerves intact, negative pronator drift, 5/ 5 strength in all 4 extremities, normal sensation to light touch in all 4 extremities, normal cerebellar exam, normal gait, normal reflexes and tone SKIN: Warm, Dry, normal turgor, no rashes or lesions noted. <Janice Pickard - Last Filed: 04/24/17 12:33> - Vital Signs Last Vital Signs Temp Pulse Resp BP Pulse Ox 98.4 F 83 16 110/64 04/24/17 09:51 04/24/17 09:51 04/24/17 09:51 04/24/17 09:51 <Christina Yoder - Last Filed: 04/24/17 13:55> - Vital Signs Last Vital Signs Temp Pulse Resp BP Pulse Ox 98.4 F 83 16 110/64 04/24/17 09:51 04/24/17 09:51 04/24/17 09:51 04/24/17 09:51 <Adonay Liz - Last Filed: 04/24/17 16:03> ED Treatment Course - LABORATORY CBC & Chemistry Diagram: 04/24/17 10:45 04/24/17 10:45 - ADDITIONAL ORDERS Additional order review: Laboratory Results 04/24/17 04/24/17 10:45 10:45 Sodium 141 Potassium 4.5 D Chloride 105 Carbon Dioxide 31 Anion Gap 5 L BUN 23 H D Creatinine 1.2 H Creat Clearance w eGFR 47.55 Random Glucose 78 D Calcium 8.7 Magnesium 2.1 Total Bilirubin 0.3 D AST 11 L D ALT 17 Alkaline Phosphatase 97 Troponin I < 0.02 Total Protein 7.3 Albumin 3.5 Beta HCG, Quant 2.9 Urine Color Yellow Urine Appearance Cloudy Urine pH 5.0 Ur Specific [place] 1.019 Urine Protein Negative Urine Glucose (UA) Negative Urine Ketones Negative Urine Blood Negative Urine Nitrite Negative Urine Bilirubin Negative Urine Urobilinogen 2.0 H 04/24/17 10:45 RBC 4.15 MCV 83.4 MCHC 34.3 RDW 16.9 H MPV 10.3 Neutrophils % 58.3 Lymphocytes % 33.1 D Monocytes % 6.3 Eosinophils % 1.5 D Basophils % 0.8 - Medications Given in the ED: ED Medications Discontinued Medications Generic Name Dose Route Start Last Admin Trade Name Freq PRN Reason Stop Dose Admin Morphine Sulfate 2 mg 04/24/17 12:04 04/24/17 12:10 Morphine Injection - IVPUSH 04/24/17 12:05 2 mg ONCE ONE Administration <AmandeepjerjoseJanice - Last Filed: 04/24/17 12:33> - LABORATORY CBC & Chemistry Diagram: 04/24/17 10:45 04/24/17 10:45 - ADDITIONAL ORDERS Additional order review: Laboratory Results 04/24/17 04/24/17 10:45 10:45 Sodium 141 Potassium 4.5 D Chloride 105 Carbon Dioxide 31 Anion Gap 5 L BUN 23 H D Creatinine 1.2 H Creat Clearance w eGFR 47.55 Random Glucose 78 D Calcium 8.7 Magnesium 2.1 Total Bilirubin 0.3 D AST 11 L D ALT 17 Alkaline Phosphatase 97 Troponin I < 0.02 Total Protein 7.3 Albumin 3.5 Beta HCG, Quant 2.9 Urine Color Yellow Urine Appearance Cloudy Urine pH 5.0 Ur Specific [place] 1.019 Urine Protein Negative Urine Glucose (UA) Negative Urine Ketones Negative Urine Blood Negative Urine Nitrite Negative Urine Bilirubin Negative Urine Urobilinogen 2.0 H Ur Leukocyte Esterase 1+ H 04/24/17 10:45 RBC 4.15 MCV 83.4 MCHC 34.3 RDW 16.9 H MPV 10.3 Neutrophils % 58.3 Lymphocytes % 33.1 D Monocytes % 6.3 Eosinophils % 1.5 D Basophils % 0.8 - Medications Given in the ED: ED Medications Discontinued Medications Generic Name Dose Route Start Last Admin Trade Name [place] PRN Reason Stop Dose Admin Morphine Sulfate 2 mg 04/24/17 12:04 04/24/17 12:10 Morphine Injection - IVPUSH 04/24/17 12:05 2 mg ONCE ONE Administration <Christina Yoder - Last Filed: 04/24/17 13:55> - LABORATORY CBC & Chemistry Diagram: 04/24/17 10:45 04/24/17 10:45 <Adonay Liz - Last Filed: 04/24/17 16:03> Medical Decision Making - Medical Decision Making 04/24/17 13:[address] w/o Con IMPRESSION: See discussion above The alignment is satisfactory. No gross fracture or subluxation is seen. Reported By: Shyla Saeed MD 04/24/[address] IMPRESSION: No significant interval change from 03/22/[address] No evidence of acute intracranial hemorrhage or acute skull fracture. No mass effect, midline shift or hydrocephalus. Reported By: Adolfo Perez DO 04/24/[address] IMPRESSION: Status post posterior fusion of T3-T9 vertebral bodies with interpedicular screws identified except at T6 level. Fusion of T5 and T6 vertebral bodies. No compression fracture or subluxation is identified. Evaluation of the spinal canal at the site of surgery is limited due to beam hardening artifacts. No compression fracture or subluxation is identified. No paravertebral soft tissue abnormality is seen Reported By: Shyla Saeed MD 04/24/17 1324 Chest Xray AP and lateral views reveal extensive spinal fusion with a accentuated thoracic kyphosis and degenerative changes with wedging. There is chin artifact, clear lungs, normal mediastinum and sharp angles. An acute process is not seen. Since 04/06/2017, there is a better inspiratory effort. If symptoms persist or there is decreased range of motion then further imaging may be of help. Reported By: Jigar Paige MD 04/24/17 1319 Hip/Pelvis Xray Impression : No acute pathology. See discussion above. Reported By: Jigar Paige MD 04/24/17 1327 <Christina Yoder - Last Filed: 04/24/17 13:55> - Medical Decision Making 04/24/17 12:57 51-year-old female with multiple medical problems presents with head pain, neck pain, and back pain after fall at the adult home this morning. The fall was witnessed by staff at [facility] who report that the patient typically uses a walker to ambulate but was not using her walker this morning and fell. The patient does not recall whether she lost consciousness or not, however the staff reports that she did not pass out. Will do a trauma workup to rule out any injury including a CT of the head, cervical spine, and thoracic spine. Will also obtain basic blood work and a troponin since patient does not recall the episode. 04/24/17 14:59 Blood work and imaging unremarkable. Patient now reports to me that she's had dull chest pain since yesterday in the sternal area that is nonradiating. EKG with normal sinus rhythm, rate 74. Normal axis and intervals. No ST elevations. Will check a second troponin and if negative, this is likely atypical chest pain. 04/24/17 16:02 Second troponin is negative. On reassessment the patient reports that she feels much better. She requests discharge to her adult home. I discussed the physical exam findings, ancillary test results and final diagnoses with the patient. I answered all of the patient's questions. The patient was satisfied with the care received and felt comfortable with the discharge plan and treatment plan. The patient will call their primary care physician within 24 hours to arrange follow-up and will return to the Emergency Department with any new, persistent or worsening symptoms. <Adonay Liz - Last Filed: 04/24/17 16:03> *DC/Admit/Observation/Transfer - Attestations Scribe Attestion: 04/24/17 12:34 Documentation prepared by BECKY Lowe, acting as medical receptionist assistant for Adonay Liz MD. <Janice Pickard - Last Filed: 04/24/17 12:33> <Christina Yoder - Last Filed: 04/24/17 13:55> - Discharge Dispostion Admit: No - Attestations Physician Attestion: 04/24/17 16:03 I, Dr. Adonay Liz MD, attest that this document has been prepared under my direction and personally reviewed by me in its entirety. I further attest, that it accurately reflects all work, treatment, procedures and medical decision -making performed by me. <Adonay Liz - Last Filed: 04/24/17 16:03> Diagnosis at time of Disposition: Chest pain, Fall - Discharge Dispostion Disposition: HOME Condition at time of disposition: Stable - Referrals Referrals: Fernando Serrano [Primary Care Provider] -
[2017-04-24 10:53] LABS: BASOPHIL 0.8 % (0-2.0); EOSINOPHIL 1.5 % (0-4.5); MCH 28.6 pg (25.7-33.7); MCHC 34.3 g/dl (32.0-36.0); MEAN CELL VOLUME 83.4 fl (80-96); MEAN PLT VOLUME 10.3 fl (7.5-11.1); NEUTROPHILS 58.3 % (42.8-82.8); PLATELET COUNT 141 K/MM3 (134-434); RDW 16.9 % (11.6-15.6); WHITE BLOOD COUNT 7.9 K/mm3 (4.0-10.0)
[2017-04-24 10:55] LABS: URINE APPEARANCE CLOUDY; URINE BILIRUBIN NEGATIVE (NEGATIVE); URINE BLOOD NEGATIVE (NEGATIVE); URINE COLOR YELLOW; URINE GLUCOSE (UA) NEGATIVE (NEGATIVE); URINE KETONE NEGATIVE (NEGATIVE); URINE NITRITE NEGATIVE (NEGATIVE); URINE PROTEIN NEGATIVE (NEGATIVE)
[2017-04-24 11:30] LABS: ALBUMIN 3.5 g/dl (3.4-5.0); ANION GAP 5 (8-16); BILIRUBIN,TOTAL 0.3 mg/dL (0.2-1.0); CALCIUM 8.7 mg/dL (8.5-10.1); CO2 31 mmol/L (21-32); CREATININE 1.2 mg/dL (0.55-1.02); GLUCOSE,RANDOM 78 mg/dL (74-106); MAGNESIUM 2.1 mg/dL (1.8-2.4); SGOT/AST 11 U/L (15-37); SGPT/ALT 17 U/L (12-78); TOT PROT 7.3 g/dl (6.4-8.2)
[2017-04-24 11:33] LABS: ALK PHOS 97 U/L (45-117); TROPONIN I < 0.02 ng/ml (0.00-0.05)
[2017-04-24] MEDS ORDERED: morphine CARPU-JECT 4 MG/1 ML DISP.SYRIN IVPUSH ONE (12:04)
[2017-04-24 12:42] LABS: URINE LEUK ESTERASE 1+ (NEGATIVE)
[2017-04-24 14:05] LABS: URINE RBC 0-3 /hpf (0-3)
[2017-04-24 14:06] LABS: URINE BACTERIA MODERATE /hpf (NEGATIVE)
[2017-04-24 16:34] VITALS: BP 110/70; PULSE 68
--- NOTE | 2017-04-25 21:41 | EKG ---
Test Reason : Blood Pressure : / mmHG Vent. Rate : 074 BPM Atrial Rate : 074 BPM P-R Int : 152 ms QRS Dur : 086 ms QT Int : 394 ms P-R-T Axes : 036 018 033 degrees QTc Int : 437 ms NORMAL SINUS RHYTHM EARLY R WAVE PROGRESSION WHEN COMPARED WITH ECG OF 06-APR-2017 10:12, NO SIGNIFICANT CHANGE WAS FOUND Confirmed by JARRETT VALE MD ([id number]) on 04/25/2017 9:41:02 PM Referred By: Confirmed By:JARRETT VALE MD
== END 2017-04-24 16:35 ==
LOC: JER 09:46
PROC: 3E033NZ Introduction of Analgesics, Hypnotics, Sedatives into Peripheral Vein, Percutaneous Approach (ICD-10-PCS; principal; 2017-04-24)
DX: R07.89 Other chest pain (principal); W18.39XA Other fall on same level, initial encounter; Y93.01 Activity, walking, marching and hiking; Y92.128 Other place in nursing home as the place of occurrence of the external cause; Y99.8 Other external cause status; I25.2 Old myocardial infarction; I25.10 Atherosclerotic heart disease of native coronary artery without angina pectoris; I10 Essential (primary) hypertension; F17.210 Nicotine dependence, cigarettes, uncomplicated; J45.909 Unspecified asthma, uncomplicated; J44.9 Chronic obstructive pulmonary disease, unspecified; E78.00 Pure hypercholesterolemia, unspecified; E03.9 Hypothyroidism, unspecified; E11.9 Type 2 diabetes mellitus without complications; F43.10 Post-traumatic stress disorder, unspecified; F31.9 Bipolar disorder, unspecified; F25.9 Schizoaffective disorder, unspecified; Z87.11 Personal history of peptic ulcer disease; I69.854 Hemiplegia and hemiparesis following other cerebrovascular disease affecting left non-dominant side
CPT/HCPCS: 36415; 70450-TC; 71020-TC; 72125-TC; 72128-TC; 72170-TC; 80053; 81003; 81015; 83735; 84484; 84702; 85025; 87086; 93005; 93010; 99283-25

== ENCOUNTER 2017-05-07 20:53 | Emergency (ER) | payer OTHER ==
[2017-05-07 21:24] VITALS: BP 114/74; PULSE 78; TEMP 98.6; BMI 35.9
--- NOTE | 2017-05-07 21:24 | PDOC ---
History of Present Illness - General Exam Limitations: No Limitations - History of Present Illness Initial Comments: 05/07/17 21:45 Patient is a 51 year old female with a significant past medical history of CAD, PR, CVA/TIA, asthma, COPD, bipolar disorder, schizophrenia, HTN, HLD, hypothyroidism, DM, morbid obesity, cocaine use, PUD, PTSD, and migraines who presents to the ED with complaints of chest pain that began yesterday at 3am. Patient reports waking up from sleeping yesterday morning with sudden onset of left sided chest pain. Patient states chest pain is a 10/10 pressured pain that radiates toward her left arm. She reports experiencing SOB secondary to left sided chest pain. Patient reports being treated and released yesterday afternoon from [facility] for chest pain. Patient states taking Nitro for chest pain with minimal relief. Denies fever, chills. Denies nausea, vomiting. Denies contact with sick individuals, out of state travel. Denies any other symptoms. Allergies: hydromorphone HCl, amoxicillin , ampicillin Allergy, aspirin Allergy , cranberry Allergy,doxycycline Allergy, Fish Containing Products Allergy, Haloperidol, haloperidol lactate,Ibuprofen, ketorolac tromethamine, Levofloxacin , milk Allergy, oxycodone HCl, Penicillins Allergy, Sulfamethoxazole, Tomato, Trimethoprim, warfarin sodium, Gravy Allergy,Cranberry/Cranberry juice Allergy Social history: Current smoker. Current drinker. Current Illicit drug user. Surgical history: None PMD: Dr. Fernando Serrano. <Galdino Meza - Last Filed: 05/07/17 21:46> - General History Source: Patient <Marcellus Castaneda - Last Filed: 05/08/17 19:26> - General Chief Complaint: Chest Pain Stated Complaint: CHEST PAIN Time Seen by Provider: 05/07/17 21:24 Past History <Galdino Meza - Last Filed: 05/07/17 21:46> - Past Medical History Anemia: Yes Asthma: Yes Cancer: No Cardiac Disorders: Yes (chest pain, CAD, [place] x3) CVA: Yes (CVA x3, TIA, left sided residual) COPD: Yes CHF: No Dementia: No Diabetes: Yes GI Disorders: Yes (PEPTIC ULCER) Disorders: No HTN: Yes Hypercholesterolemia: Yes Liver Disease: No Psychiatric Problems: Yes (BIPOLAR, POST TRAMATIC STRESS) Seizures: No Thyroid Disease: No - Surgical History Abdominal Surgery: Yes Appendectomy: No Cardiac Surgery: No Cholecystectomy: No Lung Surgery: No Neurologic Surgery: No Orthopedic Surgery: No - Immunization History Immunization Up to Date: No - Suicide/Smoking/Psychosocial Hx Smoking Status: Yes Smoking History: Never smoked Have you smoked in the past 12 months: Yes Number of Cigarettes Smoked Daily: 3 If you are a former smoker, when did you quit?: 09/18/2014 Cigars Per Day: 20 Information on smoking cessation initiated: No 'Breaking Loose' booklet given: 10/30/14 Hx Alcohol Use: No Drug/Substance Use Hx: No Substance Use Type: Alcohol, Cocaine, Marijuana Hx Substance Use Treatment: Yes <Marcellus Castaneda - Last Filed: 05/08/17 19:26> - Past Medical History Allergies/Adverse Reactions: Allergies Allergy/AdvReac Type Severity Reaction Status Date / Time hydromorphone HCl Allergy Intermediate Itching Verified 05/07/17 21:25 [From Dilaudid] amoxicillin [Amoxicillin] Allergy Verified 05/07/17 21:25 ampicillin Allergy Verified 05/07/17 21:25 aspirin Allergy Difficulty Verified 05/07/17 21:25 Breathing cranberry Allergy Rash Verified 05/07/17 21:25 doxycycline Allergy Rash Verified 05/07/17 21:25 Fish Containing Products Allergy Difficulty Verified 05/07/17 21:25 Breathing haloperidol [From Haldol] Allergy Rash Verified 05/07/17 21:25 haloperidol lactate Allergy Rash Verified 05/07/17 21:25 [From Haldol] ibuprofen [From Motrin] Allergy Difficulty Verified 05/07/17 21:25 Breathing ketorolac tromethamine Allergy Rash Verified 05/07/17 21:25 [From Toradol] levofloxacin [From Levaquin] Allergy Rash Verified 05/07/17 21:25 milk Allergy Difficulty Verified 05/07/17 21:25 Breathing oxycodone HCl [From Percocet] Allergy Rash Verified 05/07/17 21:25 Penicillins Allergy Difficulty Verified 05/07/17 21:25 Breathing sulfamethoxazole Allergy Rash Verified 05/07/17 21:25 [From Bactrim] tomato [Tomato] Allergy Hives Verified 05/07/17 21:25 trimethoprim [From Bactrim] Allergy Verified 05/07/17 21:25 warfarin sodium Allergy Verified 05/07/17 21:25 [From Coumadin] Gravy Allergy Unknown Uncoded 05/07/17 21:25 Cranberry/Cranberry juice Allergy Uncoded 05/07/17 21:25 Home Medications: Ambulatory Orders Albuterol Sulfate Inhaler - [Ventolin HFA Inhaler -] 2 puff IH Q4H 03/15/17 Benztropine Mesylate [Cogentin -] 0.5 mg PO BID 03/15/17 Budesonide/Formeterol Fumarate [SYMBICORT 80/4.5mcg -] 1 inh PO DAILY 03/15/17 Bupropion HCl [Bupropion HCl Sr] 150 mg PO DAILY 03/15/17 Clonazepam [Klonopin] 1 mg PO BID 03/15/17 Divalproex Sodium [Depakote] 500 mg PO BID 03/15/17 Docusate Sodium [Colace -] 300 mg PO HS 03/15/17 Ferrous Sulfate 325 mg PO DAILY 03/15/17 Furosemide [Lasix] 40 mg PO DAILY 03/15/17 Gabapentin [Neurontin] 600 mg PO TID 03/15/17 Metoprolol Succinate [Toprol XL -] 25 mg PO BID 03/15/17 Morphine *Sr* [MS Contin -] 30 mg PO Q6H 03/15/17 Nitroglycerin [Nitrostat] 0.4 mg SL PRN PRN 03/15/17 Polyethylene Glycol 3350 [Miralax 119 gm Btl -] 17 gm PO DAILY 03/15/17 Quetiapine Fumarate [Seroquel] 200 tab PO HS 03/15/17 Sennosides [Senna -] 2 tab PO HS 03/15/17 Simvastatin [Zocor -] 40 mg PO HS 03/15/17 Apixaban [Eliquis] 5 mg PO BID 03/16/17 Divalproex [Depakote -] 250 mg PO HS 03/16/17 Levothyroxine [Synthroid -] 500 mcg PO DAILY 03/16/17 Pantoprazole Sodium [Protonix] 40 mg PO DAILY 03/16/17 Fluoxetine HCl [Prozac -] 20 mg PO DAILY 04/24/17 Metformin HCl [Glucophage -] 500 mg PO BID 04/24/17 Review of Systems - Review of Systems Able to Perform ROS?: Yes Comments:: 12/05/17 21:45 CONSTITUTIONAL: Absent: fever, no chills, no fatigue EYES: Absent: visual changes ENT: Absent: ear pain, no sore throat CARDIOVASCULAR:+Chest Pain. Absent: no palpitations RESPIRATORY: +SOB. Absent: cough, GI: Absent: abdominal pain, no nausea, no vomiting, no constipation, no diarrhea GENITOURINARY: Absent: dysuria, no frequency, no hematuria MUSCULOSKELETAL: Absent: back pain, no arthralgia, no myalgia SKIN: Absent: rash All Other Systems: Reviewed and Negative <Galdino Meza - Last Filed: 05/07/17 21:46> *Physical Exam - Vital Signs Last Vital Signs Temp Pulse Resp BP Pulse Ox 98.6 F 78 18 114/74 100 05/07/17 20:53 05/07/17 20:53 05/07/17 20:53 05/07/17 20:53 05/07/17 20:53 - Physical Exam Comments: 05/07/17 21:45 GENERAL: Well-appearing, well-nourished. No apparent distress. HEENT: Normocephalic, atraumatic. PERRL, EOM intact. CARDIOVASCULAR: Normal S1, S2. Regular rate and rhythm. PULMONARY: Clear to auscultation bilaterally. ABDOMEN: Soft, non-distended, non-tender. EXTREMITIES: Normal ROM in all four extremities. No gross deformities. SKIN: Warm, dry. No rash NEUROLOGICAL: No focal neurological deficits. <Galdino Meza - Last Filed: 05/07/17 21:46> - Vital Signs Last Vital Signs Temp Pulse Resp BP Pulse Ox 98.6 F 78 18 114/74 100 05/07/17 20:53 05/07/17 20:53 05/07/17 20:53 05/07/17 20:53 05/07/17 20:53 <Marcellus Castaneda - Last Filed: 05/08/17 19:26> Heart Score/ECG Review - ECG Intrepretation Comment:: 05/07/17 21:34 Normal Sinus Rhythm. Cannot Rule out Anterior Infarct, age undetermined. Abnormal ECG. <Galdino Meza - Last Filed: 05/07/17 21:46> ED Treatment Course - LABORATORY CBC & Chemistry Diagram: 05/07/17 21:30 05/07/17 22:25 <Marcellus Castaneda - Last Filed: 05/08/17 19:26> Medical Decision Making - Medical Decision Making 05/08/17 19:25 Dr. Castaneda: The scribe's documentation has been prepared under my direction and personally reviewed by me in its entirery. I confirm that the note above accurately reflects all work, treatment, procedures, and medical decision making performed by me. <Marcellus Castaneda - Last Filed: 05/08/17 19:26> *DC/Admit/Observation/Transfer - Attestations Scribe Attestion: 05/07/17 21:34 Documentation prepared by Galdino Meza, acting as certified ophthalmic medical technician for Marcellus Castaneda MD/DO. <Galdino Meza - Last Filed: 05/07/17 21:46> - Discharge Dispostion Admit: No <Marcellus Castaneda - Last Filed: 05/08/17 19:26> Diagnosis at time of Disposition: Chest pain - Discharge Dispostion Disposition: HOME Condition at time of disposition: Stable - Referrals Referrals: Fernando Serrano [Primary Care Provider] - Andreas Soto MD [Staff Physician] - - Patient Instructions Printed Discharge Instructions: DI for Chest Pain Additional Instructions: Please continue your medications. Follow up with your doctor or the doctor referred to you. Return if any problems. - Post Discharge Activity
[2017-05-07 21:50] LABS: BASOPHIL 0.6 % (0-2.0); EOSINOPHIL 0.9 % (0-4.5); MCH 29.1 pg (25.7-33.7); MCHC 34.5 g/dl (32.0-36.0); MEAN CELL VOLUME 84.5 fl (80-96); MEAN PLT VOLUME 10.8 fl (7.5-11.1); NEUTROPHILS 54.7 % (42.8-82.8); PLATELET COUNT 192 K/MM3 (134-434); RDW 17.1 % (11.6-15.6); WHITE BLOOD COUNT 7.7 K/mm3 (4.0-10.0)
[2017-05-07 22:18] LABS: INR 1.01 (0.82-1.09); PROTHROMBIN TIME (PATIENT) 11.4 SEC (9.98-11.88)
[2017-05-07] MEDS ORDERED: morphine CARPU-JECT 2 MG/1 ML DISP.SYRIN IVPUSH ONE (23:00)
[2017-05-07 23:01] LABS: ALBUMIN 3.5 g/dl (3.4-5.0); ANION GAP 6 (8-16); BILIRUBIN,TOTAL 0.3 mg/dL (0.2-1.0); CALCIUM 8.6 mg/dL (8.5-10.1); CALCIUM 8.8 mg/dL (8.5-10.1); CO2 28 mmol/L (21-32); CO2 29 mmol/L (21-32); CREATININE 1.2 mg/dL (0.55-1.02); GLUCOSE,RANDOM 103 mg/dL (74-106); GLUCOSE,RANDOM 105 mg/dL (74-106); SGOT/AST 12 U/L (15-37); SGPT/ALT 14 U/L (12-78); TOT PROT 7.2 g/dl (6.4-8.2)
[2017-05-07 23:02] LABS: ALK PHOS 91 U/L (45-117)
[2017-05-07 23:03] LABS: TROPONIN I < 0.02 ng/ml (0.00-0.05)
[2017-05-08 03:06] LABS: TROPONIN I < 0.02 ng/ml (0.00-0.05)
[2017-05-08 03:09] LABS: CPK 184 IU/L (26-192)
--- NOTE | 2017-05-08 10:21 | EKG ---
Test Reason : Blood Pressure : / mmHG Vent. Rate : 073 BPM Atrial Rate : 073 BPM P-R Int : 152 ms QRS Dur : 086 ms QT Int : 394 ms P-R-T Axes : 029 001 019 degrees QTc Int : 434 ms NORMAL SINUS RHYTHM CANNOT RULE OUT ANTERIOR INFARCT , AGE UNDETERMINED ABNORMAL ECG WHEN COMPARED WITH ECG OF 24-APR-2017 11:10, MINIMAL CRITERIA FOR ANTERIOR INFARCT ARE NOW PRESENT Confirmed by ALEXANDER DANIELS, ANDRÉS ([id number]) on 05/08/2017 10:20:41 AM Referred By: Confirmed By:ANDRÉS MUNOZ MD
== END 2017-05-08 03:46 | disposition home or self-care (01) ==
LOC: JER 20:53
PROC: 3E033GC Introduction of Other Therapeutic Substance into Peripheral Vein, Percutaneous Approach (ICD-10-PCS; principal; 2017-05-07)
PROC: 3E033NZ Introduction of Analgesics, Hypnotics, Sedatives into Peripheral Vein, Percutaneous Approach (ICD-10-PCS; 2017-05-07)
DX: R07.9 Chest pain, unspecified (principal); I10 Essential (primary) hypertension; J44.9 Chronic obstructive pulmonary disease, unspecified; Z86.73 Personal history of transient ischemic attack (TIA), and cerebral infarction without residual deficits; I25.2 Old myocardial infarction; I50.9 Heart failure, unspecified; F31.9 Bipolar disorder, unspecified; E11.9 Type 2 diabetes mellitus without complications; E78.00 Pure hypercholesterolemia, unspecified; Z87.891 Personal history of nicotine dependence; E66.01 Morbid (severe) obesity due to excess calories; Z68.35 Body mass index [BMI] 35.0-35.9, adult
CPT/HCPCS: 36415; 71010-TC; 80048; 80053; 82550; 82553; 84484; 85025; 85610; 93005; 93010; 99282-25

== ENCOUNTER 2017-05-08 19:49 | Emergency (ER) | payer OTHER ==
[2017-05-08 20:04] VITALS: BP 110/65; PULSE 84; TEMP 98.5; BMI 39.9
[2017-05-08] MEDS ORDERED: ACETAMINOPHEN 325 MG TABLET (FP) PO ONE (20:30)
--- NOTE | 2017-05-08 22:22 | PDOC ---
History of Present Illness - General Chief Complaint: Injury Stated Complaint: FALL History Source: Patient Exam Limitations: No Limitations - History of Present Illness Initial Comments: 51-year-old female well-known to the ED here today complaining of a fall. Patient states she tripped and fell on some stairs sustaining injury to her left wrist and right knee. Denies any neck or back pain no LOC has been ambulating since with some mild pain no other moderating factors did not take anything for her pain prior to lsoounc24/06/17 22:13 Past History - Past Medical History Allergies/Adverse Reactions: Allergies Allergy/AdvReac Type Severity Reaction Status Date / Time hydromorphone HCl Allergy Intermediate Itching Verified 05/08/17 20:02 [From Dilaudid] amoxicillin [Amoxicillin] Allergy Verified 05/08/17 20:02 ampicillin Allergy Verified 05/08/17 20:02 aspirin Allergy Difficulty Verified 05/08/17 20:02 Breathing cranberry Allergy Rash Verified 05/08/17 20:02 doxycycline Allergy Rash Verified 05/08/17 20:02 Fish Containing Products Allergy Difficulty Verified 05/08/17 20:02 Breathing haloperidol [From Haldol] Allergy Rash Verified 05/08/17 20:02 haloperidol lactate Allergy Rash Verified 05/08/17 20:02 [From Haldol] ibuprofen [From Motrin] Allergy Difficulty Verified 05/08/17 20:02 Breathing ketorolac tromethamine Allergy Rash Verified 05/08/17 20:02 [From Toradol] levofloxacin [From Levaquin] Allergy Rash Verified 05/08/17 20:02 milk Allergy Difficulty Verified 05/08/17 20:02 Breathing oxycodone HCl [From Percocet] Allergy Rash Verified 05/08/17 20:02 Penicillins Allergy Difficulty Verified 05/08/17 20:02 Breathing sulfamethoxazole Allergy Rash Verified 05/08/17 20:02 [From Bactrim] tomato [Tomato] Allergy Hives Verified 05/08/17 20:02 trimethoprim [From Bactrim] Allergy Verified 05/08/17 20:02 warfarin sodium Allergy Verified 05/08/17 20:02 [From Coumadin] Gravy Allergy Unknown Uncoded 05/08/17 20:02 Cranberry/Cranberry juice Allergy Uncoded 05/08/17 20:02 Home Medications: Ambulatory Orders Albuterol Sulfate Inhaler - [Ventolin HFA Inhaler -] 2 puff IH Q4H 03/15/17 Benztropine Mesylate [Cogentin -] 0.5 mg PO BID 03/15/17 Budesonide/Formeterol Fumarate [SYMBICORT 80/4.5mcg -] 1 inh PO DAILY 03/15/17 Bupropion HCl [Bupropion HCl Sr] 150 mg PO DAILY 03/15/17 Clonazepam [Klonopin] 1 mg PO BID 03/15/17 Divalproex Sodium [Depakote] 500 mg PO BID 03/15/17 Docusate Sodium [Colace -] 300 mg PO HS 03/15/17 Ferrous Sulfate 325 mg PO DAILY 03/15/17 Furosemide [Lasix] 40 mg PO DAILY 03/15/17 Gabapentin [Neurontin] 600 mg PO TID 03/15/17 Metoprolol Succinate [Toprol XL -] 25 mg PO BID 03/15/17 Morphine *Sr* [MS Contin -] 30 mg PO Q6H 03/15/17 Nitroglycerin [Nitrostat] 0.4 mg SL PRN PRN 03/15/17 Polyethylene Glycol 3350 [Miralax 119 gm Btl -] 17 gm PO DAILY 03/15/17 Quetiapine Fumarate [Seroquel] 200 tab PO HS 03/15/17 Sennosides [Senna -] 2 tab PO HS 03/15/17 Simvastatin [Zocor -] 40 mg PO HS 03/15/17 Apixaban [Eliquis] 5 mg PO BID 03/16/17 Divalproex [Depakote -] 250 mg PO HS 03/16/17 Levothyroxine [Synthroid -] 500 mcg PO DAILY 03/16/17 Pantoprazole Sodium [Protonix] 40 mg PO DAILY 03/16/17 Fluoxetine HCl [Prozac -] 20 mg PO DAILY 04/24/17 Metformin HCl [Glucophage -] 500 mg PO BID 04/24/17 Anemia: Yes Asthma: Yes Cancer: No Cardiac Disorders: Yes (chest pain, CAD, [place] x3) CVA: Yes (CVA x3, TIA, left sided residual) COPD: Yes CHF: No DVT: No Dementia: No Diabetes: Yes GI Disorders: Yes (PEPTIC ULCER) Disorders: No HTN: Yes Hypercholesterolemia: Yes Liver Disease: No Psychiatric Problems: Yes (BIPOLAR, POST TRAMATIC STRESS) Seizures: No Thyroid Disease: No - Surgical History Abdominal Surgery: Yes Appendectomy: No Cardiac Surgery: No Cholecystectomy: No Lung Surgery: No Neurologic Surgery: No Orthopedic Surgery: No - Immunization History Immunization Up to Date: No - Suicide/Smoking/Psychosocial Hx Smoking Status: Yes Smoking History: Never smoked Have you smoked in the past 12 months: No Number of Cigarettes Smoked Daily: 3 If you are a former smoker, when did you quit?: 09/18/2014 Cigars Per Day: 20 Information on smoking cessation initiated: No 'Breaking Loose' booklet given: 10/30/14 Hx Alcohol Use: No Drug/Substance Use Hx: No Substance Use Type: Alcohol, Cocaine, Marijuana Hx Substance Use Treatment: Yes Review of Systems - Review of Systems Constitutional: No: Chills, Diaphoresis HEENTM: No: Blurred Vision, Mouth Swelling Respiratory: No: Orthopnea, Shortness of Breath Cardiac (ROS): No: Chest Pain, Edema ABD/GI: No: Abdominal Distended Musculoskeletal: Yes: Joint Pain Integumentary: No: Bruising, Change in Color Neurological: No: Headache, Numbness All Other Systems: Reviewed and Negative *Physical Exam - Vital Signs Last Vital Signs Temp Pulse Resp BP Pulse Ox 98.5 F 84 20 110/65 96 05/08/17 20:02 05/08/17 20:02 05/08/17 20:02 05/08/17 20:02 05/08/17 20:02 - Physical Exam General Appearance: Yes: Nourished, Appropriately Dressed HEENT: positive: LINDA Respiratory/Chest: positive: Lungs Clear, Normal Breath Sounds Cardiovascular: positive: Regular Rhythm, Regular Rate, S1, S2 Gastrointestinal/Abdominal: positive: Normal Bowel Sounds, Flat, Soft Extremity: positive: Tender, Other (left wrist ttp, no deformity. FROM. distally n/v intact. elbo / shoulder NTFROM. right knee mild ttp, no deformity no eccymosis or effusion. ) ED Treatment Course - RADIOLOGY Radiology Studies Ordered: Category Date Time Status KNEE 3 POS-RIGHT [RAD] Stat Radiology 05/08/17 20:29 Completed WRIST-LEFT [RAD] Stat Radiology 05/08/17 20:29 Completed - Medications Given in the ED: ED Medications Discontinued Medications Generic Name Dose Route Start Last Admin Trade Name Freq PRN Reason Stop Dose Admin Acetaminophen 650 mg 05/08/17 20:30 05/08/17 20:45 Tylenol - PO 05/08/17 20:31 650 mg ONCE ONE Administration Medical Decision Making - Medical Decision Making 05/08/17 22:16 51-year-old status post fall with complaint of left wrist and right knee pain. [facility] plan x-rays to rule out fracture pain control Tylenol. X-rays are negative for any acute fracture or deformity. We'll discharge patient home with Tylenol for pain and given orthopedic for follow-up as needed *DC/Admit/Observation/Transfer Diagnosis at time of Disposition: Contusion - Discharge Dispostion Disposition: HOME Condition at time of disposition: Improved Admit: No - Referrals Referrals: Fernando Serrano [Primary Care Provider] - Daryl Christianson MD [Staff Physician] - - Patient Instructions Printed Discharge Instructions: Contusion Additional Instructions: take tylenol 500 mg every 6 hours as needed for pain. return for any problems or concerns. you can follow up with orthopedist. see referral information for Dr. Christianson, see referral information. - Post Discharge Activity
== END 2017-05-08 23:48 ==
LOC: JER 19:49
DX: S60.212A Contusion of left wrist, initial encounter (principal); S80.01XA Contusion of right knee, initial encounter; W10.8XXA Fall (on) (from) other stairs and steps, initial encounter; Y93.89 Activity, other specified; Y92.128 Other place in nursing home as the place of occurrence of the external cause; Y99.8 Other external cause status; I25.10 Atherosclerotic heart disease of native coronary artery without angina pectoris; I10 Essential (primary) hypertension; I25.2 Old myocardial infarction; F31.9 Bipolar disorder, unspecified; F43.10 Post-traumatic stress disorder, unspecified; J45.909 Unspecified asthma, uncomplicated; I69.854 Hemiplegia and hemiparesis following other cerebrovascular disease affecting left non-dominant side
CPT/HCPCS: 73110-TC-LT; 73562-TC-RT; 99281-25

== ENCOUNTER 2017-05-12 19:29 | Inpatient (IN) | payer OTHER ==
[2017-05-12 19:45] VITALS: BMI 47.8
--- NOTE | 2017-05-12 19:45 | PDOC ---
History of Present Illness - History of Present Illness Initial Comments: 05/12/17 20:04 Ms. Villela is a 51 yo female w/ pmh of CAD, [place], CVA/TIA, asthma, COPD, bipolar disorder, schizophrenia, HTN, HLD, hypothyroidism, DM, morbid obesity, cocaine use, PUD, PTSD, and migraines who presents via EMS after she fell earlier today. Ms. Villela says that her vertigo was acting up and caused her to fall down on her right side. She is currently reporting severe right hip pain shooting down her leg. The patient denies chest pain, shortness of breath, headache and dizziness. Denies fever, chills, nausea, vomit, diarrhea and constipation. Denies dysuria, frequency, urgency and hematuria. <Kaden Covarrubias - Last Filed: 05/13/17 00:00> <Elena Lucero - Last Filed: 05/13/17 00:02> - General Stated Complaint: FALL Time Seen by Provider: 05/12/17 19:44 Past History - Past Medical History Anemia: Yes Asthma: Yes Cancer: No Cardiac Disorders: Yes (chest pain, CAD, [place] x3) CVA: Yes (CVA x3, TIA, left sided residual) COPD: Yes CHF: No DVT: No Dementia: No Diabetes: Yes GI Disorders: Yes (PEPTIC ULCER) Disorders: No HTN: Yes Hypercholesterolemia: Yes Liver Disease: No Psychiatric Problems: Yes (BIPOLAR, POST TRAMATIC STRESS) Seizures: No Thyroid Disease: No - Surgical History Abdominal Surgery: Yes Appendectomy: No Cardiac Surgery: No Cholecystectomy: No Lung Surgery: No Neurologic Surgery: No Orthopedic Surgery: No - Immunization History Immunization Up to Date: No - Suicide/Smoking/Psychosocial Hx Smoking Status: Yes Smoking History: Never smoked Have you smoked in the past 12 months: No Number of Cigarettes Smoked Daily: 3 If you are a former smoker, when did you quit?: 09/18/2014 Cigars Per Day: 20 'Breaking Loose' booklet given: 10/30/14 Hx Alcohol Use: No Drug/Substance Use Hx: No Substance Use Type: Alcohol, Cocaine, Marijuana Hx Substance Use Treatment: Yes <Kaden Covarrubias - Last Filed: 05/13/17 00:00> <Elena Lucero - Last Filed: 05/13/17 00:02> - Past Medical History Allergies/Adverse Reactions: Allergies Allergy/AdvReac Type Severity Reaction Status Date / Time hydromorphone HCl Allergy Intermediate Itching Verified 05/08/17 20:02 [From Dilaudid] amoxicillin [Amoxicillin] Allergy Verified 05/08/17 20:02 ampicillin Allergy Verified 05/08/17 20:02 aspirin Allergy Difficulty Verified 05/08/17 20:02 Breathing cranberry Allergy Rash Verified 05/08/17 20:02 doxycycline Allergy Rash Verified 05/08/17 20:02 Fish Containing Products Allergy Difficulty Verified 05/08/17 20:02 Breathing haloperidol [From Haldol] Allergy Rash Verified 05/08/17 20:02 haloperidol lactate Allergy Rash Verified 05/08/17 20:02 [From Haldol] ibuprofen [From Motrin] Allergy Difficulty Verified 05/08/17 20:02 Breathing ketorolac tromethamine Allergy Rash Verified 05/08/17 20:02 [From Toradol] levofloxacin [From Levaquin] Allergy Rash Verified 05/08/17 20:02 milk Allergy Difficulty Verified 05/08/17 20:02 Breathing oxycodone HCl [From Percocet] Allergy Rash Verified 05/08/17 20:02 Penicillins Allergy Difficulty Verified 05/08/17 20:02 Breathing sulfamethoxazole Allergy Rash Verified 05/08/17 20:02 [From Bactrim] tomato [Tomato] Allergy Hives Verified 05/08/17 20:02 trimethoprim [From Bactrim] Allergy Verified 05/08/17 20:02 warfarin sodium Allergy Verified 05/08/17 20:02 [From Coumadin] Gravy Allergy Unknown Uncoded 05/08/17 20:02 Cranberry/Cranberry juice Allergy Uncoded 05/08/17 20:02 Home Medications: Ambulatory Orders Albuterol Sulfate Inhaler - [Ventolin HFA Inhaler -] 2 puff IH Q4H 03/15/17 Benztropine Mesylate [Cogentin -] 0.5 mg PO BID 03/15/17 Budesonide/Formeterol Fumarate [SYMBICORT 80/4.5mcg -] 1 inh PO DAILY 03/15/17 Bupropion HCl [Bupropion HCl Sr] 150 mg PO DAILY 03/15/17 Clonazepam [Klonopin] 1 mg PO BID 03/15/17 Divalproex Sodium [Depakote] 500 mg PO BID 03/15/17 Docusate Sodium [Colace -] 300 mg PO HS 03/15/17 Ferrous Sulfate 325 mg PO DAILY 03/15/17 Furosemide [Lasix] 40 mg PO DAILY 03/15/17 Gabapentin [Neurontin] 600 mg PO TID 03/15/17 Metoprolol Succinate [Toprol XL -] 25 mg PO BID 03/15/17 Morphine *Sr* [MS Contin -] 30 mg PO Q6H 03/15/17 Nitroglycerin [Nitrostat] 0.4 mg SL PRN PRN 03/15/17 Polyethylene Glycol 3350 [Miralax 119 gm Btl -] 17 gm PO DAILY 03/15/17 Quetiapine Fumarate [Seroquel] 200 tab PO HS 03/15/17 Sennosides [Senna -] 2 tab PO HS 03/15/17 Simvastatin [Zocor -] 40 mg PO HS 03/15/17 Apixaban [Eliquis] 5 mg PO BID 03/16/17 Divalproex [Depakote -] 250 mg PO HS 03/16/17 Levothyroxine [Synthroid -] 500 mcg PO DAILY 03/16/17 Pantoprazole Sodium [Protonix] 40 mg PO DAILY 03/16/17 Fluoxetine HCl [Prozac -] 20 mg PO DAILY 04/24/17 Metformin HCl [Glucophage -] 500 mg PO BID 04/24/17 Review of Systems - Review of Systems Comments:: 05/12/17 20:13 GENERAL/CONSTITUTIONAL: No fever or chills. No weakness. HEAD, EYES, EARS, NOSE AND THROAT: No change in vision. No ear pain or discharge. No sore throat. CARDIOVASCULAR: No chest pain or shortness of breath RESPIRATORY: No cough, wheezing, or hemoptysis. GASTROINTESTINAL: No nausea, vomiting, diarrhea or constipation. GENITOURINARY: No dysuria, frequency, or change in urination. MUSCULOSKELETAL: +RLE pain with movement SKIN: No rash NEUROLOGIC: No headache, vertigo, loss of consciousness, or change in strength/ sensation. ENDOCRINE: No increased thirst. No abnormal weight change HEMATOLOGIC/LYMPHATIC: No anemia, easy bleeding, or history of blood clots. ALLERGIC/IMMUNOLOGIC: No hives or skin allergy. <Kaden Covarrubias - Last Filed: 05/13/17 00:00> *Physical Exam - Physical Exam Comments: 05/12/17 20:13 GENERAL: Awake, alert, and fully oriented, in no acute distress HEAD: No signs of trauma, normocephalic, atraumatic EYES: PERRLA, EOMI, sclera anicteric, conjunctiva clear ENT: Auricles normal inspection, hearing grossly normal, nares patent, oropharynx clear without exudates. Moist mucosa NECK: Normal ROM, supple, no lymphadenopathy, JVD, or masses LUNGS: No distress, speaks full sentences, clear to auscultation bilaterally HEART: Regular rate and rhythm, normal S1 and S2, no murmurs, rubs or gallops, peripheral pulses normal and equal bilaterally. ABDOMEN: Soft, nontender, normoactive bowel sounds. No guarding, no rebound. No masses EXTREMITIES: +RLE appears shortened and externally rotated. NEUROLOGICAL: Cranial nerves II through XII grossly intact. Normal speech, normal gait, no focal sensorimotor deficits SKIN: Warm, Dry, normal turgor, no rashes or lesions noted. <Kaden Covarrubias - Last Filed: 05/13/17 00:00> - Vital Signs Last Vital Signs Temp Pulse Resp BP Pulse Ox 98.3 F 105 H 18 112/75 99 05/12/17 19:42 05/12/17 19:42 05/12/17 19:42 05/12/17 19:42 05/12/17 19:42 <Elena Lucero - Last Filed: 05/13/17 00:02> ED Treatment Course - Medications Given in the ED: ED Medications Discontinued Medications Generic Name Dose Route Start Last Admin Trade Name Freq PRN Reason Stop Dose Admin Morphine Sulfate 4 mg 05/12/17 19:58 05/12/17 20:20 Morphine Injection - IM 05/12/17 19:59 4 mg ONCE ONE Administration <Elena Lucero - Last Filed: 05/13/17 00:02> Medical Decision Making - Medical Decision Making 05/12/17 23:42 Suspicion for fracture on Hip XR w/ reproducible point tenderness noted on exam. Pelvic CT ordered for further evaluation revealed: "Nondisplaced fracture involving posterior aspect of right acetabulum extending into the hip joint. Right hip effusion." Ortho paged 05/12/17 23:57 Discussed patient with Orthopedics ([facility]) who would like admitted for evaluation in morning. Patient discussed with inpatient team and admitted per Ortho recommendation. <Kaden Covarrubias - Last Filed: 05/13/17 00:00> *DC/Admit/Observation/Transfer - Discharge Dispostion Admit: Yes <Kaden Covarrubias - Last Filed: 05/13/17 00:00> - Discharge Dispostion Admit: Yes <Elena Lucero - Last Filed: 05/13/17 00:02> Diagnosis at time of Disposition: Pelvic fracture Qualifiers: Encounter type: initial encounter Pelvic bone location: acetabulum Sublocation of acetabulum: posterior wall Fracture type: closed Fracture alignment: nondisplaced Laterality: right Qualified Code(s): S32.424A - Nondisplaced fracture of posterior wall of right acetabulum, initial encounter for closed fracture - Discharge Dispostion Condition at time of disposition: Stable
[2017-05-12] MEDS ORDERED: morphine CARPU-JECT 2 MG/1 ML DISP.SYRIN IM ONE (19:58)
--- NOTE | 2017-05-13 00:08 | PDOC ---
Attending Attestation - Resident Resident Name: BrendanshelbyRolyKaden - ED Attending Attestation I have performed the following: I have examined & evaluated the patient, The case was reviewed & discussed with the resident, I agree w/resident's findings & plan, Exceptions are as noted - HPI HPI: 05/13/17 00:07 51 yo female BIBA from [facility] with c/o pelvic pain after falling, denies any head injury -pt alert and conversant -pain in pelvic area,no lower leg pain - Physicial Exam PE: 05/13/17 00:08 wnwd 51 yo female p/w pelvic pain s/p falling HEAD no evidence of trauma,no scalp lac ,no hematoma NECK supple lungs cta b/l cvs [id number] abd protuberant,no tenderness right leg- no ankle or leg pain pelvis pain in groin area left leg no pain,no deformity skin warm,dry neuro axox3,conversant - Medical Decision Making 05/13/17 00:12 ct scan shows nondispaced rt acetabular fracture of posterior aspect of acetabulum extending into the hip joint spoke with ortho([facility]) who recommended admission
[2017-05-13 00:35] LABS: BASO % 0.8 % (0-2.0); EOS % 0.4 % (0-4.5); MCH 29.1 pg (25.7-33.7); MCHC 34.8 g/dl (32.0-36.0); MEAN CELL VOLUME 83.5 fl (80-96); MEAN PLT VOLUME 11.5 fl (7.5-11.1); NEUT % 66.9 % (42.8-82.8); PLATELET COUNT 172 K/MM3 (134-434); RDW 16.7 % (11.6-15.6); WHITE BLOOD COUNT 11.5 K/mm3 (4.0-10.0)
[2017-05-13 01:22] LABS: ALBUMIN 3.6 g/dl (3.4-5.0); ANION GAP 7 (8-16); BILIRUBIN,TOTAL 0.5 mg/dL (0.2-1.0); CALCIUM 9.2 mg/dL (8.5-10.1); CO2 31 mmol/L (21-32); CREATININE 1.3 mg/dL (0.55-1.02); GLUCOSE,RANDOM 82 mg/dL (74-106); SGPT/ALT 18 U/L (12-78); TOT PROT 7.2 g/dl (6.4-8.2)
[2017-05-13 01:23] LABS: ALK PHOS 94 U/L (45-117); SGOT/AST 17 U/L (15-37)
--- NOTE | 2017-05-13 01:30 | PN ---
Teaching Attending Note Name of Resident: Eric Akers ATTENDING PHYSICIAN STATEMENT I saw and evaluated the patient. I reviewed the resident's note and discussed the case with the resident. I agree with the resident's findings and plan as documented. SUBJECTIVE: 51 F with Pmhx of CAD, CA, CVA/TIA, asthma, COPD, bipolar do, schizophrenia, HTN , HLD, hypothyriodism, DM, cocaine use hx, PUD, PTSD, and migraines who presents post fall. States she felt the room spinning and she fell. Notes she has had prior vertigo before. Also notes headache, pain when she turns her head to the right. Denies any chest pain, pressure or shortness of breath prior. OBJECTIVE: Physical: VS: Vital Signs Period Temp Pulse Resp BP Sys/Schultz Pulse Ox Last 24 Hr 98.3 F 105 18 112/75 99 GEN: NAD, Resting in bed, AAOx3 HEENT: NCAT, PERRL, Throat without erythema or exudates CARD:RRR S1, S2 RESP: Decreased at bases ABD: BSx4, NTD to palpation EXT: - C/C/E NEURO: CN II-XII intact CBCD WBC 11.5 K/mm3 (4.0-10.0) H D 05/13/17 00:28 RBC 4.19 M/mm3 (3.60-5.2) 05/13/17 00:28 Hgb 12.2 GM/dL (10.7-15.3) 05/13/17 00:28 Hct 35.0 % (32.4-45.2) 05/13/17 00:28 MCV 83.5 fl (80-96) 05/13/17 00:28 MCHC 34.8 g/dl (32.0-36.0) 05/13/17 00:28 RDW 16.7 % (11.6-15.6) H 05/13/17 00:28 Plt Count 172 K/MM3 (134-434) 05/13/17 00:28 MPV 11.5 fl (7.5-11.1) H 05/13/17 00:28 CMP Sodium 143 mmol/L (136-145) 05/13/17 00:28 Potassium 3.9 mmol/L (3.5-5.1) 05/13/17 00:28 Chloride 105 mmol/L (98-107) 05/13/17 00:28 Carbon Dioxide 31 mmol/L (21-32) 05/13/17 00:28 Anion Gap 7 (8-16) L 05/13/17 00:28 BUN 26 mg/dL (7-18) H D 05/13/17 00:28 Creatinine 1.3 mg/dL (0.55-1.02) H 05/13/17 00:28 Creat Clearance w eGFR 43.36 (>60) 05/13/17 00:28 Random Glucose 82 mg/dL (74-106) D 05/13/17 00:28 Calcium 9.2 mg/dL (8.5-10.1) 05/13/17 00:28 Total Bilirubin 0.5 mg/dL (0.2-1.0) D 05/13/17 00:28 AST 17 U/L (15-37) D 05/13/17 00:28 ALT 18 U/L (12-78) D 05/13/17 00:28 Alkaline Phosphatase 94 U/L (45-117) 05/13/17 00:28 Total Protein 7.2 g/dl (6.4-8.2) 05/13/17 00:28 Albumin 3.6 g/dl (3.4-5.0) 05/13/17 00:28 Home Medications Medication Instructions Recorded Albuterol Sulfate Inhaler - 2 puff IH Q4H 03/15/17 [Ventolin HFA Inhaler -] Benztropine Mesylate [Cogentin -] 0.5 mg PO BID 03/15/17 Budesonide/Formeterol Fumarate 1 inh PO DAILY 03/15/17 [SYMBICORT 80/4.5mcg -] Bupropion HCl [Bupropion HCl Sr] 150 mg PO DAILY 03/15/17 Clonazepam [Klonopin] 1 mg PO BID 03/15/17 Divalproex Sodium [Depakote] 500 mg PO BID 03/15/17 Docusate Sodium [Colace -] 300 mg PO HS 03/15/17 Ferrous Sulfate 325 mg PO DAILY 03/15/17 Furosemide [Lasix] 40 mg PO DAILY 03/15/17 Gabapentin [Neurontin] 600 mg PO TID 03/15/17 Metoprolol Succinate [Toprol XL -] 25 mg PO BID 03/15/17 Morphine *Sr* [MS Contin -] 30 mg PO Q6H 03/15/17 Nitroglycerin [Nitrostat] 0.4 mg SL PRN PRN 03/15/17 Polyethylene Glycol 3350 [Miralax 17 gm PO DAILY 03/15/17 119 gm Btl -] Quetiapine Fumarate [Seroquel] 200 tab PO HS 03/15/17 Sennosides [Senna -] 2 tab PO HS 03/15/17 Simvastatin [Zocor -] 40 mg PO HS 03/15/17 Apixaban [Eliquis] 5 mg PO BID 03/16/17 Divalproex [Depakote -] 250 mg PO HS 03/16/17 Levothyroxine [Synthroid -] 500 mcg PO DAILY 03/16/17 Pantoprazole Sodium [Protonix] 40 mg PO DAILY 03/16/17 Fluoxetine HCl [Prozac -] 20 mg PO DAILY 04/24/17 Metformin HCl [Glucophage -] 500 mg PO BID 04/24/17 EKG: NSR QtC 469 Hip Xray: Non-Displaced R. Acetabuler fracture ASSESSMENT AND PLAN: 51 F with Pmhx of CAD, CA, CVA/TIA, asthma, COPD, bipolar do, schizophrenia, HTN , HLD, hypothyriodism, DM, cocaine use hx, PUD, PTSD, and migraines who presents post fall, and found to have a R. Acetebular Fracture. 1.) Fracture of R. Acetabulum - NPO - IVF - Pain control - CBC, Type & Screen - Ortho consult 2.) Fall/Vertigo - Fall Percaustions - Meclizine prn - CT HEAD 3.) COPD - CXR- after prg. test - C/W home meds - Nebs Prn 4.) CAD - C/W home meds - ASA allergy 5.) Bipolar Do/Schizophrenia hx. -C/W home meds, with close obs. of QtC ([employer]) - Repeat EKG in AM 6.) Hypothyriodism - Chk. TSH - C/W Synthriod 7.) CVA/TIA HX. - ASA allergy - Hold Eliquis - Heparin gtt, stop 4 hrs prior if procedure needed. 8.) Dvt Ppx - Hep. gtt Place in Med-Sx
[2017-05-13] MEDS ORDERED: HEPARIN NA (PORCINE) 5,000 UNITS/ML 1ML VIAL IVPUSH PRN ×2 (02:21)
[2017-05-13 02:26] LABS: INR 1.12 (0.82-1.09); PROTHROMBIN TIME (PATIENT) 12.6 SEC (9.98-11.88)
[2017-05-13 02:28] LABS: ACTIVATED PTT 35.2 SECONDS (26.9-34.4)
[2017-05-13] MEDS ORDERED: HEPARIN SOD,PORK IN 0.45% NACL 25,000 UNIT/500 ML INFUS.BAG IVPB SCH (02:30)
--- NOTE | 2017-05-13 02:59 | HP ---
CHIEF COMPLAINT: Right hip pain after fall HISTORY OF PRESENT ILLNESS: Patient is a 51 yo F with PMHx of CAD, [place], CVA, Asthma, COPD, Bipolar disorder, HTN, HLD, Hypothyroidism, DM, morbid obesity, cocaine use, PUD, PTSD, migraines, presented today with 10/10 constant, right hip pain radiating to the right foot after falling at home. Patient said she was walking and lost her balance because she had an episode of "vertigo". Before she fell she said she felt as the room was spinning. She said she had vertigo for years and her doctor stopped the medications because it was affecting her blood pressure. She denied losing consciousness or hitting her head. She does endorses numbness and tingling of her right foot. She also says she has a history of migraines and gets headaches every time she turns her head to the right side. Patient denies head trauma, LOC, dizziness, SOB, chest pain, and urinary symptoms. ER course was notable for: (1) CT hip: nondispaced rt acetabular fracture of posterior aspect of acetabulum extending into the hip joint Recent Travel: n/A PAST MEDICAL HISTORY: CAD, [place], CVA, Asthma, COPD, Bipolar disorder, HTN, HLD, Hypothyroidism, DM, morbid obesity, cocaine use, PUD, PTSD, migraines PAST SURGICAL HISTORY: Social History: Smoking: yes Alcohol: no Drugs: cocaine, marijuana Family History: Allergies hydromorphone HCl [From Dilaudid] Allergy (Intermediate, Verified 05/08/17 20:02 ) Itching amoxicillin [Amoxicillin] Allergy (Verified 05/08/17 20:02) ampicillin Allergy (Verified 05/08/17 20:02) aspirin Allergy (Verified 05/08/17 20:02) Difficulty Breathing cranberry Allergy (Verified 05/08/17 20:02) Rash doxycycline Allergy (Verified 05/08/17 20:02) Rash Fish Containing Products Allergy (Verified 05/08/17 20:02) Difficulty Breathing haloperidol [From Haldol] Allergy (Verified 05/08/17 20:02) Rash haloperidol lactate [From Haldol] Allergy (Verified 05/08/17 20:02) Rash ibuprofen [From Motrin] Allergy (Verified 05/08/17 20:02) Difficulty Breathing ketorolac tromethamine [From Toradol] Allergy (Verified 05/08/17 20:02) Rash levofloxacin [From Levaquin] Allergy (Verified 05/08/17 20:02) Rash milk Allergy (Verified 05/08/17 20:02) Difficulty Breathing oxycodone HCl [From Percocet] Allergy (Verified 05/08/17 20:02) Rash Penicillins Allergy (Verified 05/08/17 20:02) Difficulty Breathing sulfamethoxazole [From Bactrim] Allergy (Verified 05/08/17 20:02) Rash tomato [Tomato] Allergy (Verified 05/08/17 20:02) Hives trimethoprim [From Bactrim] Allergy (Verified 05/08/17 20:02) warfarin sodium [From Coumadin] Allergy (Verified 05/08/17 20:02) Gravy Allergy (Unknown, Uncoded 05/08/17 20:02) Cranberry/Cranberry juice Allergy (Uncoded 05/08/17 20:02) HOME MEDICATIONS: Home Medications Medication Instructions Recorded Albuterol Sulfate Inhaler - 2 puff IH Q4H 03/15/17 [Ventolin HFA Inhaler -] Benztropine Mesylate [Cogentin -] 0.5 mg PO BID 03/15/17 Budesonide/Formeterol Fumarate 1 inh PO DAILY 03/15/17 [SYMBICORT 80/4.5mcg -] Bupropion HCl [Bupropion HCl Sr] 150 mg PO DAILY 03/15/17 Clonazepam [Klonopin] 1 mg PO BID 03/15/17 Divalproex Sodium [Depakote] 500 mg PO BID 03/15/17 Docusate Sodium [Colace -] 300 mg PO HS 03/15/17 Ferrous Sulfate 325 mg PO DAILY 03/15/17 Furosemide [Lasix] 40 mg PO DAILY 03/15/17 Gabapentin [Neurontin] 600 mg PO TID 03/15/17 Metoprolol Succinate [Toprol XL -] 25 mg PO BID 03/15/17 Morphine *Sr* [MS Contin -] 30 mg PO Q6H 03/15/17 Nitroglycerin [Nitrostat] 0.4 mg SL PRN PRN 03/15/17 Polyethylene Glycol 3350 [Miralax 17 gm PO DAILY 03/15/17 119 gm Btl -] Quetiapine Fumarate [Seroquel] 200 tab PO HS 03/15/17 Sennosides [Senna -] 2 tab PO HS 03/15/17 Simvastatin [Zocor -] 40 mg PO HS 03/15/17 Apixaban [Eliquis] 5 mg PO BID 03/16/17 Divalproex [Depakote -] 250 mg PO HS 03/16/17 Levothyroxine [Synthroid -] 500 mcg PO DAILY 03/16/17 Pantoprazole Sodium [Protonix] 40 mg PO DAILY 03/16/17 Fluoxetine HCl [Prozac -] 20 mg PO DAILY 04/24/17 Metformin HCl [Glucophage -] 500 mg PO BID 04/24/17 REVIEW OF SYSTEMS CONSTITUTIONAL: Absent: fever, chills, diaphoresis, generalized weakness, malaise, loss of appetite, weight change HEENT: Absent: rhinorrhea, nasal congestion, throat pain, throat swelling, difficulty swallowing, mouth swelling, ear pain, eye pain, visual changes CARDIOVASCULAR: Absent: chest pain, syncope, palpitations, irregular heart rate, lightheadedness , peripheral edema RESPIRATORY: Absent: cough, shortness of breath, dyspnea with exertion, orthopnea, wheezing, stridor, hemoptysis GASTROINTESTINAL: Absent: abdominal pain, abdominal distension, nausea, vomiting, diarrhea, constipation, melena, hematochezia GENITOURINARY: Absent: dysuria, frequency, urgency, hesitancy, hematuria, flank pain, genital pain MUSCULOSKELETAL: back pain Absent: myalgia, arthralgia, joint swelling, neck pain SKIN: Absent: rash, itching, pallor HEMATOLOGIC/IMMUNOLOGIC: Absent: easy bleeding, easy bruising, lymphadenopathy, frequent infections ENDOCRINE: Absent: unexplained weight gain, unexplained weight loss, heat intolerance, cold intolerance NEUROLOGIC: Absent: headache, focal weakness or paresthesias, dizziness, unsteady gait, seizure, mental status changes, bladder or bowel incontinence PSYCHIATRIC: Absent: anxiety, depression, suicidal or homicidal ideation, hallucinations. PHYSICAL EXAMINATION Vital Signs - 24 hr 05/12/17 19:42 Temperature 98.3 F Pulse Rate 105 H Respiratory 18 Rate Blood Pressure 112/75 O2 Sat by Pulse 99 Oximetry (%) GENERAL: Awake, alert, and oriented to place and time, in no acute distress HEAD: No signs of trauma EYES: PERRLA, EOMI, sclera anicteric, conjunctiva clear ENT:nares patent, oropharynx clear without exudates. Moist mucosa NECK: supple, no lymphadenopathy LUNGS: decreased breath sounds at bases HEART: Regular rate and rhythm, normal S1 and S2, no murmurs, rubs or gallops ABDOMEN: Soft, nontender normoactive bowel sounds. No guarding, no rebound. No masses EXTREMITIES: limited RLE examination. 1/5 strength. tender to palpation right hip down to foot.. RUE 5/5 strength. LUE 4/5 strength NEUROLOGICAL: CN 2-12 intact, decreased sensations in RLE from hip down to foot. reflex 2+ b/l throughout SKIN: Warm, Dry, normal turgor, no rashes or lesions noted. Laboratory Results - last 24 hr 05/13/17 05/13/17 05/13/17 00:28 00:28 00:28 WBC 11.5 H D RBC 4.19 Hgb 12.2 Hct 35.0 MCV 83.5 MCH 29.1 MCHC 34.8 RDW 16.7 H Plt Count 172 MPV 11.5 H Neutrophils % 66.9 D Lymphocytes % 24.4 D Monocytes % 7.5 Eosinophils % 0.4 Basophils % 0.8 Sodium 143 Potassium 3.9 Chloride 105 Carbon Dioxide 31 Anion Gap 7 L BUN 26 H D Creatinine 1.3 H Creat Clearance w eGFR 43.36 Random Glucose 82 D Calcium 9.2 Total Bilirubin 0.5 D AST 17 D ALT 18 D Alkaline Phosphatase 94 Total Protein 7.2 Albumin 3.6 Blood Type O POSITIVE Antibody Screen Negative ASSESSMENT/PLAN: 51 F with Pmhx of CAD, [place], CVA/TIA, asthma, COPD, bipolar do, schizophrenia, HTN , HLD, hypothyriodism, DM, cocaine use hx, PUD, PTSD, and migraines who presents was found to have a R. Acetebular Fracture s/p Fall. #Fracture of R. Acetabulum -nondispaced rt acetabular fracture of posterior aspect of acetabulum extending into the hip joint -Ortho consulted - IVF NS @75 cc/hour - Pain control with morphine 4mg q4 - FU CBC, CMP in AM #Fall/Vertigo - Fall Precautions - Meclizine prn - Head CT without contrast #Polysubstance drug use/Bipolar/COPD -need to confirm meds #HTN -restart home meds -need to confirm meds #CAD -Hold Metoprolol -Hold lasix -confirm meds #Hypothyroidism -confirm meds #DM -Hold metformin -ISS -BGMs #DVT prophylaxis -Heparin drip #FEN -IV fluids -WNL -NPO Dispo: med surge Visit type - Emergency Visit Emergency Visit: Yes ED Registration Date: 05/12/17 Care time: The patient presented to the Emergency Department on the above date and was hospitalized for further evaluation of their emergent condition. - New Patient This patient is new to me today: Yes Date on this admission: 05/13/17 - Critical Care Critical Care patient: No
[2017-05-13] MEDS: morphine SULFATE 4 MG/ML VIAL IVPUSH PRN ×3 (03:30→21:56)
[2017-05-13] MEDS: SODIUM CHLORIDE 1,000 ML IV SCH (03:30)
[2017-05-13] MEDS ORDERED: PT OWN MED DRAWER 7, Y5N ONE ×3 (05:46→18:24)
[2017-05-13] MEDS ORDERED: ALBUTEROL SO4 2.5/IPRATROPIUM 0.5 INH SOL 3 ML VIAL.NEB. NEB PRN (06:29)
[2017-05-13] MEDS ORDERED: INSULIN SLIDING SCALE (NOVOLOG) 1 VIAL SQ SCH (07:00)
[2017-05-13 07:37] LABS: BASO % 0.8 % (0-2.0); EOS % 0.7 % (0-4.5); MCH 29.3 pg (25.7-33.7); MEAN CELL VOLUME 83.7 fl (80-96); MEAN PLT VOLUME 11.1 fl (7.5-11.1); NEUT % 63.1 % (42.8-82.8); PLATELET COUNT 156 K/MM3 (134-434); RDW 16.9 % (11.6-15.6); WHITE BLOOD COUNT 9.7 K/mm3 (4.0-10.0)
[2017-05-13 08:06] LABS: INR 1.1 (0.82-1.09); PROTHROMBIN TIME (PATIENT) 12.4 SEC (9.98-11.88)
[2017-05-13] MEDS: INSULIN SLIDING SCALE (NOVOLOG) 1 VIAL SQ SCH ×4 (08:07→22:03)
--- NOTE | 2017-05-13 08:15 | PN ---
Physical Exam: SUBJECTIVE: Patient seen and examined by me this AM - Concerned about her pain control. Endorses spasms in her R hip and decreased sensation from the R hip down. Wants to eat, states she has a PAITÑO because she hasnt eaten. Denies any dizziness, sob, cp, n/v, changes in vision. Appears very lethargic w/ slow mentation on exam. - Plan to be seen by ortho today for possible surgical correction of fx. OBJECTIVE: Vital Signs Period Temp Pulse Resp BP Sys/Schultz Pulse Ox Last 24 Hr 97.9 F-98.3 F 87-105 18-20 112-126/64-75 99 GENERAL: The patient is A&Ox3, somnolent, appears fatigued HEAD: Normal with no signs of trauma. EYES: PERRL, extraocular movements intact, sclera anicteric, conjunctiva clear. No ptosis. ENT: Ears normal, nares patent, oropharynx clear without exudates, moist mucous membranes. NECK: Trachea midline, supple. LUNGS: Decreased breath sounds at bases, rhonchi at LLL. No wheezes, no crackles , no accessory muscle use. HEART: Regular rate and rhythm, S1, S2 without murmur, rub or gallop. ABDOMEN: Pendulous breasts BL. Globular abdomen, tender to palpation in periumbical region and RLQ. normoactive bowel sounds, conscious guarding, no rebound, no hepatosplenomegaly, no masses. Upper EXTREMITIES: 2+ pulses, warm, well-perfused, no edema. Lower extremities: 2+ pulses BL DP, PT. Wwp. No edema or lesions. NEUROLOGICAL: Cranial nerves II through XII grossly intact. Delayed speech, gait not observed. 4/5 strength with L arm flexion/extension at elbow. 5/5 strength in R arm flexion extension. 3+ R biceps reflex, 2+ left reflex. No sensation to light touch on R arm in all dermatomes. Normal on L. 5/5 strength throughout in L leg. Unable to adequately evaluated R leg, as tender to pain w/ movement, pt unwilling to move. However movement noted in toes. No sensation to light touch from hip down on R side, preserved on L. 2+ patellar reflexes BL. PSYCH: Constricted affect. SKIN: Warm, dry, normal turgor, no rashes or lesions noted Laboratory Results - last 24 hr 05/13/17 05/13/17 05/13/17 00:28 00:28 00:28 WBC 11.5 H D RBC 4.19 Hgb 12.2 Hct 35.0 MCV 83.5 MCH 29.1 MCHC 34.8 RDW 16.7 H Plt Count 172 MPV 11.5 H Neutrophils % 66.9 D Lymphocytes % 24.4 D Monocytes % 7.5 Eosinophils % 0.4 Basophils % 0.8 PT with INR INR PTT (Actin FS) Sodium 143 Potassium 3.9 Chloride 105 Carbon Dioxide 31 Anion Gap 7 L BUN 26 H D Creatinine 1.3 H Creat Clearance w eGFR 43.36 POC Glucometer Random Glucose 82 D Calcium 9.2 Total Bilirubin 0.5 D AST 17 D ALT 18 D Alkaline Phosphatase 94 Total Protein 7.2 Albumin 3.6 Blood Type O POSITIVE Antibody Screen Negative 05/13/17 05/13/17 05/13/17 02:00 06:00 07:43 WBC 9.7 RBC 4.19 Hgb 12.3 Hct 35.0 MCV 83.7 MCH 29.3 MCHC 35.0 RDW 16.9 H Plt Count 156 MPV 11.1 Neutrophils % 63.1 Lymphocytes % 27.5 Monocytes % 7.9 Eosinophils % 0.7 Basophils % 0.8 PT with INR 12.60 H INR 1.12 PTT (Actin FS) 35.2 H Sodium Potassium Chloride Carbon Dioxide Anion Gap BUN Creatinine Creat Clearance w eGFR POC Glucometer 92 Random Glucose Calcium Total Bilirubin AST ALT Alkaline Phosphatase Total Protein Albumin Blood Type Antibody Screen Active Medications Generic Name Dose Route Start Last Admin Trade Name Freq PRN Reason Stop Dose Admin Albuterol Sulfate 2 puff 05/13/17 07:15 Ventolin Hfa Inhaler - IH Q4H BHARAT Albuterol/Ipratropium 1 amp 05/13/17 06:29 Duoneb - NEB Q4H PRN SHORTNESS OF BREATH Atorvastatin Calcium 20 mg 05/13/17 22:00 Lipitor - PO HS BHARAT Budesonide/Formoterol Fumarate 1 puff 05/13/17 10:00 Symbicort 80/4.5mcg - IH DAILY BHAART Docusate Sodium 300 mg 05/13/17 22:00 Colace - PO HS BHARAT Ferrous Sulfate 325 mg 05/13/17 10:00 Feosol - PO DAILY BHARAT Sodium Chloride 1,000 mls @ 83 mls/hr 05/13/17 02:00 05/13/17 03:30 Normal Saline - IV 83 mls/hr ASDIR BHARAT Administration Insulin Aspart 1 vial 05/13/17 07:00 Novolog Vial Sliding Scale - SQ ACHS BHARAT Protocol Levothyroxine Sodium 50 mcg 05/14/17 07:00 Synthroid - PO DAILY@0700 BHARAT Meclizine HCl 12.5 mg 05/13/17 02:46 Antivert - PO Q6H PRN VERTIGO Metoprolol Succinate 25 mg 05/13/17 10:00 Toprol Xl - PO BID BHARAT Morphine Sulfate 4 mg 05/13/17 02:09 05/13/17 03:30 Morphine Sulfate IVPUSH 4 mg Q4H PRN Administration PAIN Pantoprazole Sodium 40 mg 05/13/17 10:00 Protonix - PO DAILY BHARAT Senna 2 tab 05/13/17 22:00 Senna - PO HS BHARAT No micro EKG: NSR, rate of 88, NAD, QTC 469 Imaging: Pelvic CT 05/12 - R acetabular fx on CT R Hip XR 05/12 - Finding suggestive of subtle acetabular fx. Non-con head CT 05/13 - Mild volume loss and mild to moderate ventriculomegaly that has increased since prior examination dated 01/25/2014. Neurology consult is suggested. No mass lesion, gross acute infarct or intracranial hemorrhage are identified ASSESSMENT/PLAN: Pt is a 51 yo F with pmh of CAD, [place], CVA, Asthma, COPD, Bipolar disorder, HTN, HLD, Hypothyroidism, DM2, cocaine abuse, PUD, PTSD presented late night 05/12 w / severe constant hip pain with radiation to R foot after mechanical fall at home due to episode of vertigo (no LOC, chronic vertigo). Current med list updated. #R acetabular fracture - Non-displaced R posterior acetabular fx on 05/12 CT scan of pelvis - Orth consulted. Recommend to non-surgical intervention. Limited weight- bearing of R LE - IVFs - Hgb 12.3 -> 12.2, stable overnight. Monitor for further bleeds or hypotension - Morphine 4mg q4h PRN for pain control #Mechanical fall/chronic vertigo - 05/[address] negative for acute bleed, mass or midline shift. Moderate ventriculomegaly/volume loss - Meclizine 12.5 q6h for vertigo - Consider Neuro eval - Fall risk - Bed alarm #PSA - Buproprion 400mg daily #Bipolar disorder/PTSD - Depakote 750 qHs - Klonopin 1mg PO BID - Hold Seroquel 300 qHs for now (QTC prolongation risk) #COPD - Ventolin 1 puff q4h prn - Symbicort 1 puff po daily #HTN -Toprol XL 12.5 BID - Monitor BP #CAD - Cardiology consulted. Recs appreciated. - Restarted home eliquis 5mg BID - Nitroglycerin 0.4mg SL PRN - Toprol XL 12.5 BID - Atovastatin 20mg po qHs - Hold lasix #Hypothyroidism - TSH 1.55 -Synthroid 50mcg daily #DM2 - BG controlled on admission -ISS -BGM ACHS - Gabapentin 300mg TID for neuropathy per home med list #Depression - Qtc 469 - Hold Prozac 20 mg daily for now #Anemia - Ferrous sulfate 325mg daily #PPX - Eliquis 5mg BID - Protonix 40mg daily #FEN F: NS 83cc E: Daily BMPs, no abs N: Diabetic diet Dispo: Continue to monitor on med/surg floors. Will likely require d/c to [place]. Plan discussed with attending, Dr. Cheyenne Powell, PGY1 Visit type - Emergency Visit Emergency Visit: Yes ED Registration Date: 05/12/17 Care time: The patient presented to the Emergency Department on the above date and was hospitalized for further evaluation of their emergent condition. - New Patient This patient is new to me today: Yes Date on this admission: 05/13/17 - Critical Care Critical Care patient: No
--- NOTE | 2017-05-13 08:50 | PN ---
Teaching Attending Note Name of Resident: Darrin Powell ATTENDING PHYSICIAN STATEMENT I saw and evaluated the patient. I reviewed the resident's note and discussed the case with the resident. I agree with the resident's findings and plan as documented. SUBJECTIVE: Patient is lying in bed c/o having right hip pain x 1 day. she states she fell and injured her right side yesterday. Denies any chest pain, no shortness of breath. No fever or chills. no abdominal pain. OBJECTIVE: Vital Signs Temperature 98 F 05/13/17 06:00 Pulse Rate 88 05/13/17 06:00 Respiratory Rate 20 05/13/17 06:00 Blood Pressure 126/68 05/13/17 06:00 O2 Sat by Pulse Oximetry (%) 99 05/12/17 19:42 CBCD WBC 9.7 K/mm3 (4.0-10.0) 05/13/17 06:00 RBC 4.19 M/mm3 (3.60-5.2) 05/13/17 06:00 Hgb 12.3 GM/dL (10.7-15.3) 05/13/17 06:00 Hct 35.0 % (32.4-45.2) 05/13/17 06:00 MCV 83.7 fl (80-96) 05/13/17 06:00 MCHC 35.0 g/dl (32.0-36.0) 05/13/17 06:00 RDW 16.9 % (11.6-15.6) H 05/13/17 06:00 Plt Count 156 K/MM3 (134-434) 05/13/17 06:00 MPV 11.1 fl (7.5-11.1) 05/13/17 06:00 CMP Sodium 141 mmol/L (136-145) 05/13/17 06:00 Potassium 3.9 mmol/L (3.5-5.1) 05/13/17 06:00 Chloride 105 mmol/L (98-107) 05/13/17 06:00 Carbon Dioxide 31 mmol/L (21-32) 05/13/17 00:28 Anion Gap 7 (8-16) L 05/13/17 00:28 BUN 26 mg/dL (7-18) H D 05/13/17 00:28 Creatinine 1.3 mg/dL (0.55-1.02) H 05/13/17 00:28 Creat Clearance w eGFR 43.36 (>60) 05/13/17 00:28 Random Glucose 82 mg/dL (74-106) D 05/13/17 00:28 Calcium 9.2 mg/dL (8.5-10.1) 05/13/17 00:28 Total Bilirubin 0.5 mg/dL (0.2-1.0) D 05/13/17 00:28 AST 17 U/L (15-37) D 05/13/17 00:28 ALT 18 U/L (12-78) D 05/13/17 00:28 Alkaline Phosphatase 94 U/L (45-117) 05/13/17 00:28 Total Protein 7.2 g/dl (6.4-8.2) 05/13/17 00:28 Albumin 3.6 g/dl (3.4-5.0) 05/13/17 00:28 Home Medication List Medication Instructions Recorded Confirmed Type Albuterol Sulfate Inhaler - 2 puff IH Q4H 03/15/17 05/13/17 History [Ventolin HFA Inhaler -] Benztropine Mesylate [Cogentin -] 0.5 mg PO BID 03/15/17 05/13/17 History Budesonide/Formeterol Fumarate 1 inh PO DAILY 03/15/17 05/13/17 History [SYMBICORT 80/4.5mcg -] Bupropion HCl [Bupropion HCl Sr] 150 mg PO DAILY 03/15/17 05/13/17 History Clonazepam [Klonopin] 1 mg PO BID 03/15/17 05/13/17 History Divalproex Sodium [Depakote] 500 mg PO BID 03/15/17 05/13/17 History Docusate Sodium [Colace -] 300 mg PO HS 03/15/17 05/13/17 History Ferrous Sulfate 325 mg PO DAILY 03/15/17 05/13/17 History Furosemide [Lasix] 40 mg PO DAILY 03/15/17 05/13/17 History Gabapentin [Neurontin] 600 mg PO TID 03/15/17 05/13/17 History Metoprolol Succinate [Toprol XL -] 25 mg PO BID 03/15/17 05/13/17 History Morphine *Sr* [MS Contin -] 30 mg PO Q6H 03/15/17 05/13/17 History Nitroglycerin [Nitrostat] 0.4 mg SL PRN PRN 03/15/17 05/13/17 History Polyethylene Glycol 3350 [Miralax 17 gm PO DAILY 03/15/17 05/13/17 History 119 gm Btl -] Quetiapine Fumarate [Seroquel] 200 tab PO HS 03/15/17 05/13/17 History Sennosides [Senna -] 2 tab PO HS 03/15/17 05/13/17 History Simvastatin [Zocor -] 40 mg PO HS 03/15/17 05/13/17 History Apixaban [Eliquis] 5 mg PO BID 03/16/17 05/13/17 History Divalproex [Depakote -] 250 mg PO HS 03/16/17 05/13/17 History Levothyroxine [Synthroid -] 500 mcg PO DAILY 03/16/17 05/13/17 History Pantoprazole Sodium [Protonix] 40 mg PO DAILY 03/16/17 05/13/17 History Fluoxetine HCl [Prozac -] 20 mg PO DAILY 04/24/17 05/13/17 History Metformin HCl [Glucophage -] 500 mg PO BID 04/24/17 05/13/17 History Active Medications Generic Name Dose Route Start Last Admin Trade Name Freq PRN Reason Stop Dose Admin Albuterol Sulfate 2 puff 05/13/17 07:15 Ventolin Hfa Inhaler - IH Q4H BHARAT Albuterol/Ipratropium 1 amp 05/13/17 06:29 Duoneb - NEB Q4H PRN SHORTNESS OF BREATH Atorvastatin Calcium 20 mg 05/13/17 22:00 Lipitor - PO HS BHARAT Budesonide/Formoterol Fumarate 1 puff 05/13/17 10:00 Symbicort 80/4.5mcg - IH DAILY BHARAT Docusate Sodium 300 mg 05/13/17 22:00 Colace - PO HS BHARAT Ferrous Sulfate 325 mg 05/13/17 10:00 Feosol - PO DAILY BHARAT Sodium Chloride 1,000 mls @ 83 mls/hr 05/13/17 02:00 05/13/17 03:30 Normal Saline - IV 83 mls/hr ASDIR BHARAT Administration Insulin Aspart 1 vial 05/13/17 07:00 05/13/17 08:07 Novolog Vial Sliding Scale - SQ Not Given ACHS [facility] Protocol Levothyroxine Sodium 50 mcg 05/14/17 07:00 Synthroid - PO DAILY@0700 BHARAT Meclizine HCl 12.5 mg 05/13/17 02:46 Antivert - PO Q6H PRN VERTIGO Metoprolol Succinate 25 mg 05/13/17 10:00 Toprol Xl - PO BID BHARAT Morphine Sulfate 4 mg 05/13/17 02:09 05/13/17 03:30 Morphine Sulfate IVPUSH 4 mg Q4H PRN Administration PAIN Pantoprazole Sodium 40 mg 05/13/17 10:00 Protonix - PO DAILY BHARAT Senna 2 tab 05/13/17 22:00 Senna - PO HS BHARAT Head CT without contrast: Mild volume loss; mild to moderate ventriculomegaly increased from prior exam. Xray of right hip: subtle acetabulum fx PE: per resident's note ASSESSMENT AND PLAN: Patient is a 51 F with Pmhx of CAD, [place], CVA/TIA, asthma, COPD, bipolar do, schizophrenia, HTN, HLD, hypothyriodism, DM, cocaine use hx, PUD, PTSD, and migraines who presents was found to have a Right Acetebular Fracture s/p Fall. # Nondisplaced Fracture of Right Acetabulum, as per ortho will proceed non- surgically and partial WB RLE , no surgeries at this time. Ortho consult appreciated # Hx of Dizziness and Vertigo; Fall Precautions ; Meclizine prn #Polysubstance drug use/Bipolar/COPD continue home meds. #HTN continue meds. #CAD Hold Metoprolol, lasix #Hypothyroidism ; continue meds #DM ISS, BGMs hold metformin for now #DVT Px: Heparin drip
[2017-05-13 08:54] LABS: BILIRUBIN,TOTAL 0.7 mg/dL (0.2-1.0)
[2017-05-13 08:58] LABS: ALBUMIN 3.5 g/dl (3.4-5.0); ALK PHOS 99 U/L (45-117); ANION GAP 9 (8-16); CALCIUM 8.7 mg/dL (8.5-10.1); CO2 27 mmol/L (21-32); CREATININE 1.2 mg/dL (0.55-1.02); GLUCOSE,RANDOM 81 mg/dL (74-106); MAGNESIUM 1.9 mg/dL (1.8-2.4); SGOT/AST 10 U/L (15-37); SGPT/ALT 15 U/L (12-78)
[2017-05-13 09:06] LABS: THYROID STIMULATING HORMONE 1.55 uIU/ml (0.358-3.74)
--- NOTE | 2017-05-13 09:43 | CONSULT ---
Consult Consult Specialty:: orthopedics - History of Present Illness History of Present Illness: 51y/o female c/o right hip pain for 1 day. she states she fell and injured her right side yesterday. She c/o pain in the right hip which is worse with movement and better with rest. She had x-rays and a CT of the pelvis in the ER. She has been resting in bed. The pain does not radiate. no other associated, aggravating or relieving factors. 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 No: Alzheimer's, Dementia, Multiple Sclerosis, Peripheral Neuropathy, Parkinson's, Seizure, Syncope, Vertigo, Other Cardio/Vascular: Yes: CAD, HTN, Hyperlipdemia, CO (x3 per pt) Pulmonary: Yes: Asthma, Sleep Apnea. No: Bronchitis, Cancer, COPD, O2 Dependent , Pneumonia, Previously Intubated, Pulmonary Embolus, Pulmonary Fibrosis, Other Gastrointestinal: Yes: Peptic Ulcer Disease. No: Ascites, Cancer, Constipation , Crohn's Disease, Diverticulitis, Diverticulosis, Esophageal Varices, Gastritis , GERD, GI Bleed, Hemorrhoids, Hiatal Hernia, Inflamatory Bowel Disease, Irritable Bowel Disease, Pancreatitis, Ulcerative Colitis, Other Psych: Yes: Addictions (cocaine abuse in past, clean since 2012), Depression, Other (Bipolar disorder) Musculoskeletal: Yes: Chronic low back pain Endocrine: Yes: Diabetes Mellitus, Other (Morbid Obesity) - Alcohol/Substance Use Hx Alcohol Use: No History of Substance Use: reports: Cocaine - Smoking History Smoking history: Never smoked Have you smoked in the past 12 months: No Aproximately how many cigarettes per day: 3 If you are a former smoker, when did you quit?: 09/18/2014 - Social History Usual Living Arrangement: [facility] History of Recent Travel: No Home Medications - Allergies Allergies/Adverse Reactions: Allergies Allergy/AdvReac Type Severity Reaction Status Date / Time hydromorphone HCl Allergy Intermediate Itching Verified 05/08/17 20:02 [From Dilaudid] amoxicillin [Amoxicillin] Allergy Verified 05/08/17 20:02 ampicillin Allergy Verified 05/08/17 20:02 aspirin Allergy Difficulty Verified 05/08/17 20:02 Breathing cranberry Allergy Rash Verified 05/08/17 20:02 doxycycline Allergy Rash Verified 05/08/17 20:02 Fish Containing Products Allergy Difficulty Verified 05/08/17 20:02 Breathing haloperidol [From Haldol] Allergy Rash Verified 05/08/17 20:02 haloperidol lactate Allergy Rash Verified 05/08/17 20:02 [From Haldol] ibuprofen [From Motrin] Allergy Difficulty Verified 05/08/17 20:02 Breathing ketorolac tromethamine Allergy Rash Verified 05/08/17 20:02 [From Toradol] levofloxacin [From Levaquin] Allergy Rash Verified 05/08/17 20:02 milk Allergy Difficulty Verified 05/08/17 20:02 Breathing oxycodone HCl [From Percocet] Allergy Rash Verified 05/08/17 20:02 Penicillins Allergy Difficulty Verified 05/08/17 20:02 Breathing sulfamethoxazole Allergy Rash Verified 05/08/17 20:02 [From Bactrim] tomato [Tomato] Allergy Hives Verified 05/08/17 20:02 trimethoprim [From Bactrim] Allergy Verified 05/08/17 20:02 warfarin sodium Allergy Verified 05/08/17 20:02 [From Coumadin] Gravy Allergy Unknown Uncoded 05/08/17 20:02 Cranberry/Cranberry juice Allergy Uncoded 05/08/17 20:02 - Home Medications Home Medications: Ambulatory Orders Albuterol Sulfate Inhaler - [Ventolin HFA Inhaler -] 2 puff IH Q4H 03/15/17 Benztropine Mesylate [Cogentin -] 0.5 mg PO BID 03/15/17 Budesonide/Formeterol Fumarate [SYMBICORT 80/4.5mcg -] 1 inh PO DAILY 03/15/17 Bupropion HCl [Bupropion HCl Sr] 150 mg PO DAILY 03/15/17 Clonazepam [Klonopin] 1 mg PO BID 03/15/17 Divalproex Sodium [Depakote] 500 mg PO BID 03/15/17 Docusate Sodium [Colace -] 300 mg PO HS 03/15/17 Ferrous Sulfate 325 mg PO DAILY 03/15/17 Furosemide [Lasix] 40 mg PO DAILY 03/15/17 Gabapentin [Neurontin] 600 mg PO TID 03/15/17 Metoprolol Succinate [Toprol XL -] 25 mg PO BID 03/15/17 Morphine *Sr* [MS Contin -] 30 mg PO Q6H 03/15/17 Nitroglycerin [Nitrostat] 0.4 mg SL PRN PRN 03/15/17 Polyethylene Glycol 3350 [Miralax 119 gm Btl -] 17 gm PO DAILY 03/15/17 Quetiapine Fumarate [Seroquel] 200 tab PO HS 03/15/17 Sennosides [Senna -] 2 tab PO HS 03/15/17 Simvastatin [Zocor -] 40 mg PO HS 03/15/17 Apixaban [Eliquis] 5 mg PO BID 03/16/17 Divalproex [Depakote -] 250 mg PO HS 03/16/17 Levothyroxine [Synthroid -] 500 mcg PO DAILY 03/16/17 Pantoprazole Sodium [Protonix] 40 mg PO DAILY 03/16/17 Fluoxetine HCl [Prozac -] 20 mg PO DAILY 04/24/17 Metformin HCl [Glucophage -] 500 mg PO BID 04/24/17 Review of Systems - Review of Systems Constitutional: reports: No Symptoms Eyes: reports: No Symptoms HENT: reports: No Symptoms Neck: reports: No Symptoms Cardiovascular: reports: No Symptoms Respiratory: reports: No Symptoms Gastrointestinal: reports: No Symptoms Genitourinary: reports: No Symptoms Breasts: reports: No Symptoms Reported Musculoskeletal: reports: Extremity Pain, Joint Pain Integumentary: reports: No Symptoms Neurological: reports: No Symptoms Endocrine: reports: No Symptoms Hematology/Lymphatic: reports: No Symptoms Psychiatric: reports: No Symptoms Physical Exam Vital Signs: Vital Signs Temperature 98.4 F 05/13/17 08:50 Pulse Rate 92 H 05/13/17 08:50 Respiratory Rate 20 05/13/17 08:50 Blood Pressure 124/62 05/13/17 08:50 O2 Sat by Pulse Oximetry (%) 99 05/12/17 19:42 Constitutional: Yes: Well Nourished, No Distress, Calm HENT: Yes: Atraumatic, Normocephalic Musculoskeletal: Yes: Other (Right hip: No open wounds. No focal areas of tenderness. Compartments soft. Calf nontender. Pain with motion of the hip. +2 distal pulses. Pt able to move foot but uncooperative. Pt states she cannot feel sensation but then stated 'your hand is cold' as I palpated the RLE.) Labs: CBC, BMP 05/13/17 06:00 12/11/17 06:00 Imaging - Results X-ray: Report Reviewed, Image Reviewed Cat Scan: Report Reviewed, Image Reviewed (Nondispaced acetabulum fracture) Assessment/Plan #1 Nondisplaced acetabulum fracture, right -Discussed today's findings and treatment options with the patient. -Will proceed non-surgically. Partial WB RLE -Pain control -DVT prophylaxis
[2017-05-13] MEDS ORDERED: LEVOTHYROXINE NA 100 MCG TABLET (FP) PO SCH (10:00)
[2017-05-13] MEDS ORDERED: METOPROLOL SUCCINATE 25 MG TAB.SR.24H (FP) PO SCH (10:00)
[2017-05-13] MEDS: PANTOPRAZOLE 40 MG TABLET (FP) PO SCH (10:46)
[2017-05-13] MEDS: FERROUS SO4 325 MG TABLET (FP) PO SCH (10:46)
--- NOTE | 2017-05-13 12:27 | CON.CARD ---
Consult Consult Specialty:: Cardiology Referred by:: Hospitalist Medicine Reason for Consultation:: Pre-operative cardiovascular evaluation - History of Present Illness Chief Complaint: Right hip pain post fall History of Present Illness: Patient is a 51 yo F with PMHx of CAD, [place], CVA, Asthma, COPD, Bipolar disorder, HTN, HLD, Hypothyroidism, DM, morbid obesity, cocaine use, PUD, PTSD, migraines , presented with constant, right hip pain radiating to the right foot after falling at home. Patient said she was walking and lost her balance because she had an episode of "vertigo". Before she fell she said she felt as the room was spinning. She c/o pain in the right hip which is worse with movement and better with rest. She denied losing consciousness or hitting her head. She does endorses numbness and tingling of her right foot. She also says she has a history of migraines and gets headaches every time she turns her head to the right side. Patient denies head trauma, LOC, dizziness, SOB, chest pain, palpitations, orthopnea, PND or LE edema. 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 No: Alzheimer's, Dementia, Multiple Sclerosis, Peripheral Neuropathy, Parkinson's, Seizure, Syncope, Vertigo, Other Cardio/Vascular: Yes: CAD, HTN, Hyperlipdemia, IL (x3 per pt) Pulmonary: Yes: Asthma, Sleep Apnea. No: Bronchitis, Cancer, COPD, O2 Dependent , Pneumonia, Previously Intubated, Pulmonary Embolus, Pulmonary Fibrosis, Other Gastrointestinal: Yes: Peptic Ulcer Disease. No: Ascites, Cancer, Constipation , Crohn's Disease, Diverticulitis, Diverticulosis, Esophageal Varices, Gastritis , GERD, GI Bleed, Hemorrhoids, Hiatal Hernia, Inflamatory Bowel Disease, Irritable Bowel Disease, Pancreatitis, Ulcerative Colitis, Other Psych: Yes: Addictions (cocaine abuse in past, clean since 2012), Depression, Other (Bipolar disorder) Musculoskeletal: Yes: Chronic low back pain Endocrine: Yes: Diabetes Mellitus, Other (Morbid Obesity) - Alcohol/Substance Use Hx Alcohol Use: No History of Substance Use: reports: Cocaine - Smoking History Smoking history: Never smoked Have you smoked in the past 12 months: No Aproximately how many cigarettes per day: 3 If you are a former smoker, when did you quit?: 09/18/2014 - Social History Usual Living Arrangement: Long Term History of Recent Travel: No Home Medications - Allergies Allergies/Adverse Reactions: Allergies Allergy/AdvReac Type Severity Reaction Status Date / Time hydromorphone HCl Allergy Intermediate Itching Verified 05/08/17 20:02 [From Dilaudid] amoxicillin [Amoxicillin] Allergy Verified 05/08/17 20:02 ampicillin Allergy Verified 05/08/17 20:02 aspirin Allergy Difficulty Verified 05/08/17 20:02 Breathing cranberry Allergy Rash Verified 05/08/17 20:02 doxycycline Allergy Rash Verified 05/08/17 20:02 Fish Containing Products Allergy Difficulty Verified 05/08/17 20:02 Breathing haloperidol [From Haldol] Allergy Rash Verified 05/08/17 20:02 haloperidol lactate Allergy Rash Verified 05/08/17 20:02 [From Haldol] ibuprofen [From Motrin] Allergy Difficulty Verified 05/08/17 20:02 Breathing ketorolac tromethamine Allergy Rash Verified 05/08/17 20:02 [From Toradol] levofloxacin [From Levaquin] Allergy Rash Verified 05/08/17 20:02 milk Allergy Difficulty Verified 05/08/17 20:02 Breathing oxycodone HCl [From Percocet] Allergy Rash Verified 05/08/17 20:02 Penicillins Allergy Difficulty Verified 05/08/17 20:02 Breathing sulfamethoxazole Allergy Rash Verified 05/08/17 20:02 [From Bactrim] tomato [Tomato] Allergy Hives Verified 05/08/17 20:02 trimethoprim [From Bactrim] Allergy Verified 05/08/17 20:02 warfarin sodium Allergy Verified 05/08/17 20:02 [From Coumadin] Gravy Allergy Unknown Uncoded 05/08/17 20:02 Cranberry/Cranberry juice Allergy Uncoded 05/08/17 20:02 - Home Medications Home Medications: Ambulatory Orders Albuterol Sulfate Inhaler - [Ventolin HFA Inhaler -] 2 puff IH Q4H 03/15/17 Benztropine Mesylate [Cogentin -] 0.5 mg PO BID 03/15/17 Budesonide/Formeterol Fumarate [SYMBICORT 80/4.5mcg -] 1 inh PO DAILY 03/15/17 Bupropion HCl [Bupropion HCl Sr] 150 mg PO DAILY 03/15/17 Clonazepam [Klonopin] 1 mg PO BID 03/15/17 Divalproex Sodium [Depakote] 500 mg PO BID 03/15/17 Docusate Sodium [Colace -] 300 mg PO HS 03/15/17 Ferrous Sulfate 325 mg PO DAILY 03/15/17 Furosemide [Lasix] 40 mg PO DAILY 03/15/17 Gabapentin [Neurontin] 600 mg PO TID 03/15/17 Metoprolol Succinate [Toprol XL -] 25 mg PO BID 03/15/17 Morphine *Sr* [MS Contin -] 30 mg PO Q6H 03/15/17 Nitroglycerin [Nitrostat] 0.4 mg SL PRN PRN 03/15/17 Polyethylene Glycol 3350 [Miralax 119 gm Btl -] 17 gm PO DAILY 03/15/17 Quetiapine Fumarate [Seroquel] 200 tab PO HS 03/15/17 Sennosides [Senna -] 2 tab PO HS 03/15/17 Simvastatin [Zocor -] 40 mg PO HS 03/15/17 Apixaban [Eliquis] 5 mg PO BID 03/16/17 Divalproex [Depakote -] 250 mg PO HS 03/16/17 Levothyroxine [Synthroid -] 500 mcg PO DAILY 03/16/17 Pantoprazole Sodium [Protonix] 40 mg PO DAILY 03/16/17 Fluoxetine HCl [Prozac -] 20 mg PO DAILY 04/24/17 Metformin HCl [Glucophage -] 500 mg PO BID 04/24/17 Review of Systems - Review of Systems Musculoskeletal: reports: Joint Pain (Right hip pain) Vital Signs: Vital Signs Temperature 98.4 F 05/13/17 08:50 Pulse Rate 92 H 05/13/17 08:50 Respiratory Rate 20 05/13/17 08:50 Blood Pressure 124/62 05/13/17 08:50 O2 Sat by Pulse Oximetry (%) 99 05/12/17 19:42 Constitutional: Yes: No Distress, Calm Neck: Yes: Supple Respiratory: Yes: Regular, Diminished Gastrointestinal: Yes: Normal Bowel Sounds, Soft Cardiovascular: Yes: Regular Rate and Rhythm JVD: No Carotid Bruit: No Heart Sounds: Yes: S1, S2 Edema: No - Other Data Labs, Other Data: CBC, BMP 05/13/17 06:00 05/13/17 06:00 INR, PTT INR 1.10 (0.82-1.09) 05/13/17 06:00 NSR @ Problem List - Problems (1) Pelvic fracture Code(s): S32.9XXA - FRACTURE OF UNSP PARTS OF LUMBOSACRAL SPINE AND PELVIS, INIT Qualifiers: Encounter type: initial encounter Pelvic bone location: acetabulum Sublocation of acetabulum: posterior wall Fracture type: closed Fracture alignment: nondisplaced Laterality: right Qualified Code(s): S32.424A - Nondisplaced fracture of posterior wall of right acetabulum, initial encounter for closed fracture (2) Hx of long-term use of 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 Code(s): Z79.01 - LONGTERM (CURRENT) USE OF ANTICOAGULANTS (3) Bipolar disorder Code(s): F31.9 - BIPOLAR DISORDER, UNSPECIFIED Qualifiers: Active/Remission status: in full remission Most recent bipolar episode type : most recent episode depressed (4) 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 Code(s): E11.9 - TYPE 2 DIABETES MELLITUS WITHOUT COMPLICATIONS Qualifiers: 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 type: type 2 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 complication status: without complication (5) HTN (hypertension) Code(s): I10 - ESSENTIAL (PRIMARY) HYPERTENSION Qualifiers: Hypertension type: essential hypertension Qualified Code(s): I10 - Essential (primary) hypertension (6) Hyperlipidemia Code(s): E78.5 - HYPERLIPIDEMIA, UNSPECIFIED Qualifiers: Hyperlipidemia type: pure hypercholesterolemia Qualified Code(s): E78.00 - Pure hypercholesterolemia, unspecified; E78.0 - Pure hypercholesterolemia (7) ARVIND treated with BiPAP Code(s): G47.33 - OBSTRUCTIVE SLEEP APNEA (ADULT) (PEDIATRIC) (8) Pre-operative cardiovascular examination Code(s): Z01.810 - ENCOUNTER FOR PREPROCEDURAL CARDIOVASCULAR EXAMINATION Assessment/Plan Cat Scan: Report Reviewed, Image Reviewed (Nondispaced acetabulum fracture) 1. Non-displaced Fracture of R. Acetabulum 2. CAD h/o [place] 3. Hypothyroidism 4. Polysubstance abuse, Bipolar d/o, schizophrenia 5. COPD 6. CVA/TIA 7. Migraine headache P:1. Ortho plans for non-surgical management with partial WB RLE, pain control 2. Continue Metoprolol Succinate [Toprol XL -] 25 mg PO BID, Zocor 40 qhs, hold Lasix 3. Maintain on eliquis 5 bid for DVT prophylaxis 4. Thank you for consultative opportunity
[2017-05-13] MEDS: BUDESONIDE/FORMETEROL FUMARATE 80/4.5 mcg INHALER IH SCH (13:29)
[2017-05-13] MEDS: ALBUTEROL SO4 18 GM HFA INHALER IH SCH ×4 (13:29→23:11)
--- NOTE | 2017-05-13 14:56 | EKG ---
Test Reason : Blood Pressure : / mmHG Vent. Rate : 088 BPM Atrial Rate : 088 BPM P-R Int : 136 ms QRS Dur : 094 ms QT Int : 388 ms P-R-T Axes : 039 012 033 degrees QTc Int : 469 ms NORMAL SINUS RHYTHM NORMAL ECG WHEN COMPARED WITH ECG OF 07-MAY-2017 21:26, NO SIGNIFICANT CHANGE WAS FOUND Confirmed by NELI MARIN MD ([id number]) on 05/13/2017 2:56:02 PM Referred By: Confirmed By:NELI MARIN MD
[2017-05-13] MEDS: SENNOSIDES 8.6MG TABLET (FP) PO SCH (21:58)
[2017-05-13] MEDS: DOCUSATE SODIUM 100 MG CAPSULE (FP) PO SCH (21:59)
[2017-05-13] MEDS: APIXABAN 5 MG TABLET PO SCH (21:59)
[2017-05-13] MEDS: METOPROLOL SUCCINATE 25 MG TAB.SR.24H (FP) PO SCH (22:00)
[2017-05-13] MEDS: ATORVASTATIN CA 20 MG TABLET (FP) PO SCH (22:00)
[2017-05-14] MEDS: ALBUTEROL SO4 18 GM HFA INHALER IH SCH ×4 (06:11→14:26)
[2017-05-14] MEDS: SODIUM CHLORIDE 1,000 ML IV SCH (06:12)
[2017-05-14] MEDS: INSULIN SLIDING SCALE (NOVOLOG) 1 VIAL SQ SCH ×4 (06:14→21:25)
[2017-05-14] MEDS: LEVOTHYROXINE NA 100 MCG TABLET (FP) PO SCH (06:15)
--- NOTE | 2017-05-14 06:33 | PN ---
Physical Exam: SUBJECTIVE: Patient seen and examined by me this AM - No major overnight events. Pt still complaining of lack of sensation in R leg from hip down, however reacts to tactile stimulation/joint manipulation. Pt complaining of persistent joint pain in R hip and upper leg. - Denies any fever/chills, PATIÑO/lightheadness, CP, palpitations, SOB, cough, N/V, abdominal pain, LE edema - Seen by ortho yesterday. Recommend non-surgical management, limited weight- bearing - Plan for transfer to short term rehab, pending authorization. OBJECTIVE: Vital Signs Intake & Output 05/11/17 05/12/17 05/13/17 05/14/17 23:59 23:59 23:59 23:59 Intake Total 1380 Balance 1380 Weight 146.964 kg 147 kg Period Temp Pulse Resp BP Sys/Schultz Pulse Ox Last 24 Hr 97.4 F-99 F 81-94 20-20 106-139/56-77 95-99 GENERAL: A&Ox3 HEAD: NCAt EYES: PERRL, extraocular movements intact, sclera anicteric, conjunctiva clear. No ptosis. ENT: Ears normal, nares patent, oropharynx clear without exudates, moist mucous membranes. NECK: Trachea midline, no thyromegaly appreciate, supple. LUNGS: Decreased bibasilar breath sounds, trace rhonchi at LLL. No wheezes, no crackles, no accessory muscle use. HEART: Regular rate and rhythm, S1, S2 without murmur, rub or gallop. ABDOMEN: Globular abdomen, tender to palpation in suprapubic region and RLQ. Normoactive bowel sounds, conscious guarding, no rebound, no hepatosplenomegaly , no masses. Upper EXTREMITIES: 2+ pulses, warm, well-perfused, no edema. Lower extremities: 2+ pulses BL DP, PT. wwp. No edema or lesions. NEUROLOGICAL: Cranial nerves II through XII grossly intact. Normal speech, gait not observed. 4/5 strength with L arm flexion/extension at elbow. 5/5 strength in R arm flexion/extension. 2+ R biceps reflex, 2+ left reflex. No sensation to light touch on R arm in all dermatomes. Normal on L. 5/5 strength throughout in L leg. Patient unwilling to move R leg, due to pain. Able to move toes, plantarflex. No sensation to light touch from hip down on R side, however patient reacts to limb manipulation and tactile stimulation. Preserved sensation to light touch on L. 2+ patellar reflexes BL. PSYCH: Constrict affect, appropriate. Denies any delusions. Endorses visual hallucinations at night "faces in the dark". Denies thoughts of homicide/ suicide. Good insight, poor judgment SKIN: Warm, dry, normal turgor, no rashes or lesions noted Laboratory Results - last 24 hr CBC, BMP 05/13/17 06:00 05/13/17 06:00 05/13/17 05/13/17 05/13/17 06:00 06:00 06:00 WBC 9.7 RBC 4.19 Hgb 12.3 Hct 35.0 MCV 83.7 MCH 29.3 MCHC 35.0 RDW 16.9 H Plt Count 156 MPV 11.1 Neutrophils % 63.1 Lymphocytes % 27.5 Monocytes % 7.9 Eosinophils % 0.7 Basophils % 0.8 PT with INR 12.40 H INR 1.10 Sodium 141 Potassium 3.9 Chloride 105 Carbon Dioxide 27 Anion Gap 9 BUN 22 H Creatinine 1.2 H Creat Clearance w eGFR 47.55 POC Glucometer Random Glucose 81 Calcium 8.7 Phosphorus 4.0 Magnesium 1.9 Total Bilirubin 0.7 D AST 10 L D ALT 15 Alkaline Phosphatase 99 Total Protein 7.0 Albumin 3.5 TSH 1.55 D 05/13/17 05/13/17 05/13/17 07:20 07:43 11:44 WBC RBC Hgb Hct MCV MCH MCHC RDW Plt Count MPV Neutrophils % Lymphocytes % Monocytes % Eosinophils % Basophils % PT with INR INR Sodium Potassium Chloride Carbon Dioxide Anion Gap BUN Creatinine Creat Clearance w eGFR POC Glucometer 92 134 Random Glucose Calcium Phosphorus Magnesium Total Bilirubin AST ALT Alkaline Phosphatase Total Protein Albumin TSH Cancelled 05/13/17 05/13/17 17:09 22:02 WBC RBC Hgb Hct MCV MCH MCHC RDW Plt Count MPV Neutrophils % Lymphocytes % Monocytes % Eosinophils % Basophils % PT with INR INR Sodium Potassium Chloride Carbon Dioxide Anion Gap BUN Creatinine Creat Clearance w eGFR POC Glucometer 129 125 Random Glucose Calcium Phosphorus Magnesium Total Bilirubin AST ALT Alkaline Phosphatase Total Protein Albumin TSH Active Medications Generic Name Dose Route Start Last Admin Trade Name Freq PRN Reason Stop Dose Admin Albuterol Sulfate 2 puff 05/13/17 07:15 05/14/17 06:15 Ventolin Hfa Inhaler - IH 2 puff Q4H BHARAT Administration Albuterol/Ipratropium 1 amp 05/13/17 06:29 Duoneb - NEB Q4H PRN SHORTNESS OF BREATH Apixaban 5 mg 05/13/17 22:00 05/13/17 21:59 Eliquis - PO 5 mg BID BHARAT Administration Atorvastatin Calcium 20 mg 05/13/17 22:00 05/13/17 22:00 Lipitor - PO 20 mg HS BHARAT Administration Budesonide/Formoterol Fumarate 1 puff 05/13/17 10:00 05/13/17 13:29 Symbicort 80/4.5mcg - IH Not Given DAILY BHARAT Docusate Sodium 300 mg 05/13/17 22:00 05/13/17 21:59 Colace - PO 300 mg HS BHARAT Administration Ferrous Sulfate 325 mg 05/13/17 10:00 05/13/17 10:46 Feosol - PO 325 mg DAILY BHARAT Administration Sodium Chloride 1,000 mls @ 83 mls/hr 05/13/17 02:00 05/14/17 06:12 Normal Saline - IV 83 mls/hr ASDIR BHARAT Administration Insulin Aspart 1 vial 05/13/17 07:00 05/14/17 06:14 Novolog Vial Sliding Scale - SQ Not Given ACHS [facility] Protocol Levothyroxine Sodium 50 mcg 05/14/17 07:00 05/14/17 06:15 Synthroid - PO 50 mcg DAILY@0700 BHARAT Administration Meclizine HCl 12.5 mg 05/13/17 02:46 Antivert - PO Q6H PRN VERTIGO Metoprolol Succinate 12.5 mg 05/13/17 22:00 05/13/17 22:00 Toprol Xl - PO 12.5 mg BID BHARAT Administration Morphine Sulfate 4 mg 05/13/17 02:09 05/13/17 21:56 Morphine Sulfate IVPUSH 4 mg Q4H PRN Administration PAIN Pantoprazole Sodium 40 mg 05/13/17 10:00 05/13/17 10:46 Protonix - PO 40 mg DAILY BHARAT Administration Senna 2 tab 05/13/17 22:00 05/13/17 21:58 Senna - PO 2 tab HS BHARAT Administration No micro EKG: NSR, rate of 88, NAD, QTC 469 Imaging: Pelvic CT 05/12 - R acetabular fx on CT R Hip XR 05/12 - Finding suggestive of subtle acetabular fx. Non-con head CT 05/13 - Mild volume loss and mild to moderate ventriculomegaly that has increased since prior examination dated 01/25/2014. Neurology consult is suggested. No mass lesion, gross acute infarct or intracranial hemorrhage are identified ASSESSMENT/PLAN: Pt is a 51 yo F with pmh of CAD, [place], CVA, Asthma, COPD, Bipolar disorder, HTN, HLD, Hypothyroidism, DM2, cocaine abuse, PUD, PTSD presented late night 05/12 w / severe constant hip pain with radiation to R foot after mechanical fall at home due to episode of vertigo (no LOC, chronic vertigo). Pt seen by ortho yesterday, recommend non-surgical management/limited weight-bearing. Pt pending placement at acute rehab facility. #R acetabular fracture - Non-displaced R posterior acetabular fx on 05/12 CT scan of pelvis - Orth consulted. Recommend to non-surgical intervention. Limited weight- bearing of R LE - IVFs - Hgb 12.2, 05/13. Monitor for further bleeds or hypotension - Morphine 4mg q4h PRN for pain control #Mechanical fall/chronic vertigo - 05/[address] negative for acute bleed, mass or midline shift. Moderate ventriculomegaly/volume loss - Meclizine 12.5 q6h for vertigo - Consider Neuro eval - Fall risk #PSA - Buproprion 400mg daily #Bipolar disorder/PTSD - Depakote 750 qHs - Klonopin 1mg PO BID - Seroquel 300 qHs #COPD - Ventolin 1 puff q4h prn - Symbicort 1 puff po daily #HTN -Toprol XL 12.5 BID - Monitor BP #CAD - Cardiology consulted. Recs appreciated. - Eliquis 5mg BID - Nitroglycerin 0.4mg SL PRN - Toprol XL 12.5 BID - Atovastatin 20mg po qHs - Hold lasix #Hypothyroidism - TSH 1.55 -Synthroid 50mcg daily #DM2 - BG controlled on admission -ISS -BGM ACHS - Gabapentin 300mg TID for neuropathy per home med list #Depression - Prozac 40 mg daily for now #Anemia - Ferrous sulfate 325mg daily #PPX - Eliquis 5mg BID - Protonix 40mg daily #FEN F: NS 83cc E: Daily BMPs, no abs N: Diabetic diet Dispo: Continue to monitor on med/surg floors. Possible d/c tomorrow pending authorization for acute care facility. Plan discussed with attending, Dr. Cheyenne Powell, PGY1 Visit type - Emergency Visit Emergency Visit: Yes ED Registration Date: 05/12/17 Care time: The patient presented to the Emergency Department on the above date and was hospitalized for further evaluation of their emergent condition. - New Patient This patient is new to me today: No - Critical Care Critical Care patient: No
[2017-05-14] MEDS ORDERED: PT OWN MED DRAWER 7, Y5N ONE ×4 (06:49→21:07)
[2017-05-14] MEDS ORDERED: PATIENT'S OWN MEDICATION (NON-FORMULARY) (Tizanidine Hcl [Zanaflex] 2 MG) PO PRN (07:27)
[2017-05-14] MEDS: morphine SULFATE 4 MG/ML VIAL IVPUSH PRN ×3 (08:43→20:13)
[2017-05-14] MEDS ORDERED: BUPROPION HCL 400 MG PO SCH (10:00)
[2017-05-14] MEDS: FERROUS SO4 325 MG TABLET (FP) PO SCH (10:15)
[2017-05-14] MEDS: FLUoxetine HCL 20 MG CAPSULE (FP) PO SCH (10:15)
[2017-05-14] MEDS: PANTOPRAZOLE 40 MG TABLET (FP) PO SCH (10:15)
[2017-05-14] MEDS: clonazePAM 0.5 MG TABLET PO SCH ×2 (10:15→21:42)
[2017-05-14] MEDS: METOPROLOL SUCCINATE 25 MG TAB.SR.24H (FP) PO SCH ×2 (10:16→21:32)
[2017-05-14] MEDS: BUDESONIDE/FORMETEROL FUMARATE 80/4.5 mcg INHALER IH SCH (10:16)
[2017-05-14] MEDS: APIXABAN 5 MG TABLET PO SCH ×2 (10:17→21:43)
[2017-05-14] MEDS: BENZTROPINE MESYLATE 0.5 MG TABLET (FP) PO SCH (10:17)
[2017-05-14] MEDS: POLYETHYLENE GLYCOL 3350 119 GM BTL PO SCH (10:18)
--- NOTE | 2017-05-14 10:49 | PN ---
Progress Note, Physician Chief Complaint: Events noted Complains of lower extremity pain History of Present Illness: Patient was seen and examined. Awake and alert. Chart was reviewed Denies chest pain, SOB or palpitations - Current Medication List Current Medications: Active Medications Albuterol Sulfate (Ventolin Hfa Inhaler -) 2 puff IH Q4H [facility] Last Admin: 05/14/17 06:15 Dose: 2 puff Albuterol/Ipratropium (Duoneb -) 1 amp NEB Q4H PRN PRN Reason: SHORTNESS OF BREATH Apixaban (Eliquis -) 5 mg PO BID [facility] Last Admin: 05/14/17 10:17 Dose: 5 mg Atorvastatin Calcium (Lipitor -) 20 mg PO HS [facility] Last Admin: 05/13/17 22:00 Dose: 20 mg Benztropine Mesylate (Cogentin -) 1 mg PO DAILY [facility] Last Admin: 05/14/17 10:17 Dose: 1 mg Budesonide/Formoterol Fumarate (Symbicort 80/4.5mcg -) 1 puff IH DAILY [facility] Last Admin: 05/14/17 10:16 Dose: Not Given Clonazepam (Klonopin -) 1 mg PO BID [facility] Last Admin: 05/14/17 10:15 Dose: 1 mg Divalproex Sodium (Depakote -) 750 mg PO HS [facility] Docusate Sodium (Colace -) 300 mg PO HS [facility] Last Admin: 05/13/17 21:59 Dose: 300 mg Ferrous Sulfate (Feosol -) 325 mg PO DAILY [facility] Last Admin: 05/14/17 10:15 Dose: 325 mg Fluoxetine HCl (Prozac -) 40 mg PO DAILY [facility] Last Admin: 05/14/17 10:15 Dose: 40 mg Gabapentin (Neurontin -) 300 mg PO TID [facility] Sodium Chloride (Normal Saline -) 1,000 mls @ 83 mls/hr IV ASDIR [facility] Last Admin: 05/14/17 06:12 Dose: 83 mls/hr Insulin Aspart (Novolog Vial Sliding Scale -) 1 vial SQ ACHS [facility] PRN Reason: Protocol Last Admin: 05/14/17 06:14 Dose: Not Given Levothyroxine Sodium (Synthroid -) 50 mcg PO DAILY@0700 [facility] Last Admin: 05/14/17 06:15 Dose: 50 mcg Meclizine HCl (Antivert -) 12.5 mg PO Q6H PRN PRN Reason: VERTIGO Metoprolol Succinate (Toprol Xl -) 12.5 mg PO BID [facility] Last Admin: 05/14/17 10:16 Dose: 12.5 mg Morphine Sulfate (Morphine Sulfate) 4 mg IVPUSH Q4H PRN PRN Reason: PAIN Last Admin: 05/14/17 08:43 Dose: 4 mg Non-Formulary Medication (Bupropion Hcl [Bupropion Hcl Sr]) 400 mg PO DAILY [facility] Non-Formulary Medication (Tizanidine Hcl [Zanaflex]) 2 mg PO TID PRN PRN Reason: MUSCLE SPASMS Pantoprazole Sodium (Protonix -) 40 mg PO DAILY [facility] Last Admin: 05/14/17 10:15 Dose: 40 mg Polyethylene Glycol (Miralax (For Daily Use) -) 17 gm PO DAILY [facility] Last Admin: 05/14/17 10:18 Dose: Not Given Quetiapine Fumarate (Seroquel -) mg PO [facility] Senna (Senna -) 2 tab PO [facility] Last Admin: 05/13/17 21:58 Dose: 2 tab - Objective Vital Signs: Vital Signs Temperature 98.6 F 05/14/17 05:00 Pulse Rate 81 05/14/17 05:00 Respiratory Rate 20 05/14/17 05:00 Blood Pressure 139/77 05/14/17 05:00 O2 Sat by Pulse Oximetry (%) 99 05/13/17 21:00 Constitutional: Yes: Mild Distress HENT: Yes: Atraumatic Neck: Yes: Supple Cardiovascular: Yes: Regular Rate and Rhythm, S1, S2 Respiratory: Yes: CTA Bilaterally Gastrointestinal: Yes: Normal Bowel Sounds, Soft. No: Tenderness Edema: No Labs: CBC, BMP 05/13/17 06:00 05/13/17 06:00 INR, PTT INR 1.10 (0.82-1.09) 05/13/17 06:00 Problem List - Problems (1) Pelvic fracture Code(s): S32.9XXA - FRACTURE OF UNSP PARTS OF LUMBOSACRAL SPINE AND PELVIS, INIT Qualifiers: Encounter type: subsequent encounter Pelvic bone location: acetabulum Sublocation of acetabulum: posterior wall Fracture type: closed Fracture alignment: nondisplaced Laterality: right Qualified Code(s): S32.424A - Nondisplaced fracture of posterior wall of right acetabulum, initial encounter for closed fracture (2) Weakness Code(s): R53.1 - WEAKNESS (3) Bipolar disorder Code(s): F31.9 - BIPOLAR DISORDER, UNSPECIFIED Qualifiers: Active/Remission status: in full remission Most recent bipolar episode type : most recent episode depressed (4) Diabetes type 2, controlled Code(s): E11.9 - TYPE 2 DIABETES MELLITUS WITHOUT COMPLICATIONS Qualifiers: 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 complication status: without complication 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 prison insulin use: without prison use Qualified Code(s): E11.9 - Type 2 diabetes mellitus without complications (5) HTN (hypertension) Code(s): I10 - ESSENTIAL (PRIMARY) HYPERTENSION Qualifiers: Hypertension type: essential hypertension Qualified Code(s): I10 - Essential (primary) hypertension (6) Hyperlipidemia Code(s): E78.5 - HYPERLIPIDEMIA, UNSPECIFIED Qualifiers: Hyperlipidemia type: pure hypercholesterolemia Qualified Code(s): E78.00 - Pure hypercholesterolemia, unspecified; E78.0 - Pure hypercholesterolemia (7) CAD (coronary artery disease) Code(s): I25.10 - ATHSCL HEART DISEASE OF [place] CORONARY ARTERY W/O ANG PCTRS (8) COPD (chronic obstructive pulmonary disease) Code(s): J44.9 - CHRONIC OBSTRUCTIVE PULMONARY DISEASE, UNSPECIFIED Assessment/Plan 1. Non-displaced Fracture of right acetabulum 2. CAD h/o [place] 3. Hypothyroidism 4. Polysubstance abuse, Bipolar disorder and schizophrenia 5. COPD 6. CVA/TIA 7. Migraine headache PLAN: 1. Non-surgical management as per Orthopedics 2. Continue Metoprolol ER 12.5 mg PO BID and Atorvastatin mg qhs. Lasix held 3. Maintain on Eliquis for DVT prophylaxis, but would need to clarify DVT prophylactic dose ? 2.5 mg BID 4. Continue analgesics Further plans are to follow Ahmet Antunez MD
[2017-05-14] MEDS: GABAPENTIN 300 MG CAPSULE (FP) PO SCH ×2 (14:18→21:42)
--- NOTE | 2017-05-14 18:35 | PN ---
Teaching Attending Note Name of Resident: Darrin Powell ATTENDING PHYSICIAN STATEMENT I saw and evaluated the patient. I reviewed the resident's note and discussed the case with the resident. I agree with the resident's findings and plan as documented. SUBJECTIVE: Patient is comfortable with no acute distress, no nausea or vomiting , c/o having right hip pain. OBJECTIVE: Vital Signs Temperature 98.9 F 05/14/17 15:07 Pulse Rate 97 H 05/14/17 15:07 Respiratory Rate 20 05/14/17 15:07 Blood Pressure 128/91 05/14/17 15:07 O2 Sat by Pulse Oximetry (%) 97 05/14/17 09:00 CBCD WBC 9.7 K/mm3 (4.0-10.0) 05/13/17 06:00 RBC 4.19 M/mm3 (3.60-5.2) 05/13/17 06:00 Hgb 12.3 GM/dL (10.7-15.3) 05/13/17 06:00 Hct 35.0 % (32.4-45.2) 05/13/17 06:00 MCV 83.7 fl (80-96) 05/13/17 06:00 MCHC 35.0 g/dl (32.0-36.0) 05/13/17 06:00 RDW 16.9 % (11.6-15.6) H 05/13/17 06:00 Plt Count 156 K/MM3 (134-434) 05/13/17 06:00 MPV 11.1 fl (7.5-11.1) 05/13/17 06:00 CMP Sodium 141 mmol/L (136-145) 05/13/17 06:00 Potassium 3.9 mmol/L (3.5-5.1) 05/13/17 06:00 Chloride 105 mmol/L (98-107) 05/13/17 06:00 Carbon Dioxide 27 mmol/L (21-32) 05/13/17 06:00 Anion Gap 9 (8-16) 05/13/17 06:00 BUN 22 mg/dL (7-18) H 05/13/17 06:00 Creatinine 1.2 mg/dL (0.55-1.02) H 05/13/17 06:00 Creat Clearance w eGFR 47.55 (>60) 05/13/17 06:00 Random Glucose 81 mg/dL (74-106) 05/13/17 06:00 Calcium 8.7 mg/dL (8.5-10.1) 05/13/17 06:00 Total Bilirubin 0.7 mg/dL (0.2-1.0) D 05/13/17 06:00 AST 10 U/L (15-37) L D 05/13/17 06:00 ALT 15 U/L (12-78) 05/13/17 06:00 Alkaline Phosphatase 99 U/L (45-117) 05/13/17 06:00 Total Protein 7.0 g/dl (6.4-8.2) 05/13/17 06:00 Albumin 3.5 g/dl (3.4-5.0) 05/13/17 06:00 Current Medications Generic Name Dose Route Start Last Admin Trade Name Freq PRN Reason Stop Dose Admin Albuterol Sulfate 2 puff 05/13/17 07:15 05/14/17 14:26 Ventolin Hfa Inhaler - IH Not Given Q4H BHARAT Albuterol/Ipratropium 1 amp 05/13/17 06:29 Duoneb - NEB Q4H PRN SHORTNESS OF BREATH Apixaban 5 mg 05/13/17 22:00 05/14/17 10:17 Eliquis - PO 5 mg BID BHARAT Administration Atorvastatin Calcium 20 mg 05/13/17 22:00 05/13/17 22:00 Lipitor - PO 20 mg HS BHARAT Administration Benztropine Mesylate 1 mg 05/14/17 10:00 05/14/17 10:17 Cogentin - PO 1 mg DAILY BHARAT Administration Budesonide/Formoterol Fumarate 1 puff 05/13/17 10:00 05/14/17 10:16 Symbicort 80/4.5mcg - IH Not Given DAILY BHARAT Clonazepam 1 mg 05/14/17 10:00 05/14/17 10:15 Klonopin - PO 1 mg BID BHARAT Administration Divalproex Sodium 750 mg 05/14/17 22:00 Depakote - PO HS BHARAT Docusate Sodium 300 mg 05/13/17 22:00 05/13/17 21:59 Colace - PO 300 mg HS BHARAT Administration Ferrous Sulfate 325 mg 05/13/17 10:00 05/14/17 10:15 Feosol - PO 325 mg DAILY BHARAT Administration Fluoxetine HCl 40 mg 05/14/17 10:00 05/14/17 10:15 Prozac - PO 40 mg DAILY BHARAT Administration Gabapentin 300 mg 05/14/17 14:00 05/14/17 14:18 Neurontin - PO 300 mg TID BHARAT Administration Sodium Chloride 1,000 mls @ 83 mls/hr 05/13/17 02:00 05/14/17 06:12 Normal Saline - IV 83 mls/hr ASDIR BHARAT Administration Insulin Aspart 1 vial 05/13/17 07:00 05/14/17 16:49 Novolog Vial Sliding Scale - SQ Not Given ACHS [facility] Protocol Levothyroxine Sodium 50 mcg 05/14/17 07:00 05/14/17 06:15 Synthroid - PO 50 mcg DAILY@0700 BHARAT Administration Meclizine HCl 12.5 mg 05/13/17 02:46 Antivert - PO Q6H PRN VERTIGO Metoprolol Succinate 12.5 mg 05/13/17 22:00 05/14/17 10:16 Toprol Xl - PO 12.5 mg BID BHARAT Administration Morphine Sulfate 4 mg 05/13/17 02:09 05/14/17 14:18 Morphine Sulfate IVPUSH 4 mg Q4H PRN Administration PAIN Non-Formulary Medication 400 mg 05/14/17 10:00 Bupropion Hcl [Bupropion Hcl Sr] PO DAILY BHARAT Non-Formulary Medication 2 mg 05/14/17 07:27 Tizanidine Hcl [Zanaflex] PO TID PRN MUSCLE SPASMS Pantoprazole Sodium 40 mg 05/13/17 10:00 05/14/17 10:15 Protonix - PO 40 mg DAILY BHARAT Administration Polyethylene Glycol 17 gm 05/14/17 10:00 05/14/17 10:18 Miralax (For Daily Use) - PO Not Given DAILY [facility] Quetiapine Fumarate mg 05/14/17 22:00 Seroquel - PO HS BHARAT Senna 2 tab 05/13/17 22:00 05/13/17 21:58 Senna - PO 2 tab HS BHARAT Administration Home Medications Medication Instructions Recorded Albuterol Sulfate Inhaler - 1 puff IH Q4H 03/15/17 [Ventolin HFA Inhaler -] Benztropine Mesylate [Cogentin -] 1 mg PO DAILY 03/15/17 Budesonide/Formeterol Fumarate 1 inh PO DAILY 03/15/17 [SYMBICORT 80/4.5mcg -] Bupropion HCl [Bupropion HCl Sr] 400 mg PO DAILY 03/15/17 Clonazepam [Klonopin] 1 mg PO BID 03/15/17 Docusate Sodium [Colace -] 300 mg PO HS 03/15/17 Ferrous Sulfate 325 mg PO DAILY 03/15/17 Furosemide [Lasix] 40 mg PO DAILY 03/15/17 Gabapentin [Neurontin] 300 mg PO TID 03/15/17 Metoprolol Succinate [Toprol XL -] 12.5 mg PO BID 03/15/17 Morphine *Sr* [MS Contin -] 15 mg PO Q6H 03/15/17 Nitroglycerin [Nitrostat] 0.6 mg SL PRN PRN 03/15/17 Polyethylene Glycol 3350 [Miralax 17 gm PO DAILY 03/15/17 119 gm Btl -] Quetiapine Fumarate [Seroquel] 300 tab PO HS 03/15/17 Sennosides [Senna -] 2 tab PO HS 03/15/17 Simvastatin [Zocor -] 40 mg PO HS 03/15/17 Apixaban [Eliquis] 5 mg PO BID 03/16/17 Divalproex [Depakote -] 750 mg PO HS 03/16/17 Levothyroxine [Synthroid -] 50 mcg PO DAILY 03/16/17 Pantoprazole Sodium [Protonix] 40 mg PO DAILY 03/16/17 Fluoxetine HCl [Prozac -] 40 mg PO DAILY 04/24/17 Metformin HCl [Glucophage -] 500 mg PO BID 04/24/17 Tizanidine HCl [Zanaflex] 2 mg PO TID PRN 05/13/[address] without contrast: Mild volume loss; mild to moderate ventriculomegaly increased from prior exam. Xray of right hip: subtle acetabulum fx PE: per resident's note Pulses are positive. ASSESSMENT AND PLAN: Patient is a 51 F with Pmhx of CAD, [place], CVA/TIA, asthma, COPD, bipolar do, schizophrenia, HTN, HLD, hypothyriodism, DM, cocaine use hx, PUD, PTSD, and migraines who presents was found to have a Right Acetebular Fracture s/p Fall. # Nondisplaced Fracture of Right Acetabulum, as per ortho: no surgeries at this time and partial WB RLE . Ortho consult appreciated # Hx of Dizziness and Vertigo; Fall Precautions ; Meclizine prn #Polysubstance drug use/Bipolar/COPD continue home meds. #HTN continue meds. #CAD Hold Metoprolol, lasix #Hypothyroidism ; continue meds #DM ISS, BGMs hold metformin for now #DVT Px: Heparin drip
--- NOTE | 2017-05-14 19:27 | CON.PSY ---
Psychiatry Consult Chief Complaint: Asked to see this patient for psychoses- auditory hallucination History of Present Problem: Patient has a hx of multiple psychiatric hospitalization in the past for what sounds like Bipolar symptoms with psychoses. She admits to hearing voices lately which is more prominent now during her hospitalization and increased stress. Admits that the voices are not of a command type - Admits to Depression more so because she has lost her sense of independence and is dependent on staff for ADL care etc. Also depressed about her son who has been diagnosed with schizophrenia. She denies suicidal/homicidal ideation. Symptoms: reports: Depressed Mood, Hallucinations - Current Medications Current Medications: Active Medications Albuterol Sulfate (Ventolin Hfa Inhaler -) 2 puff IH Q4H [facility] Last Admin: 05/14/17 14:26 Dose: Not Given Albuterol/Ipratropium (Duoneb -) 1 amp NEB Q4H PRN PRN Reason: SHORTNESS OF BREATH Apixaban (Eliquis -) 5 mg PO BID [facility] Last Admin: 05/14/17 10:17 Dose: 5 mg Atorvastatin Calcium (Lipitor -) 20 mg PO HS [facility] Last Admin: 05/13/17 22:00 Dose: 20 mg Benztropine Mesylate (Cogentin -) 1 mg PO DAILY [facility] Last Admin: 05/14/17 10:17 Dose: 1 mg Budesonide/Formoterol Fumarate (Symbicort 80/4.5mcg -) 1 puff IH DAILY [facility] Last Admin: 05/14/17 10:16 Dose: Not Given Clonazepam (Klonopin -) 1 mg PO BID [facility] Last Admin: 05/14/17 10:15 Dose: 1 mg Divalproex Sodium (Depakote -) 750 mg PO HS BHARAT Docusate Sodium (Colace -) 300 mg PO HS [facility] Last Admin: 05/13/17 21:59 Dose: 300 mg Ferrous Sulfate (Feosol -) 325 mg PO DAILY [facility] Last Admin: 05/14/17 10:15 Dose: 325 mg Fluoxetine HCl (Prozac -) 40 mg PO DAILY [facility] Last Admin: 05/14/17 10:15 Dose: 40 mg Gabapentin (Neurontin -) 300 mg PO TID [facility] Last Admin: 05/14/17 14:18 Dose: 300 mg Sodium Chloride (Normal Saline -) 1,000 mls @ 83 mls/hr IV ASDIR [facility] Last Admin: 05/14/17 06:12 Dose: 83 mls/hr Insulin Aspart (Novolog Vial Sliding Scale -) 1 vial SQ ACHS [facility] PRN Reason: Protocol Last Admin: 05/14/17 16:49 Dose: Not Given Levothyroxine Sodium (Synthroid -) 50 mcg PO DAILY@0700 [facility] Last Admin: 05/14/17 06:15 Dose: 50 mcg Meclizine HCl (Antivert -) 12.5 mg PO Q6H PRN PRN Reason: VERTIGO Metoprolol Succinate (Toprol Xl -) 12.5 mg PO BID [facility] Last Admin: 05/14/17 10:16 Dose: 12.5 mg Morphine Sulfate (Morphine Sulfate) 4 mg IVPUSH Q4H PRN PRN Reason: PAIN Last Admin: 05/14/17 14:18 Dose: 4 mg Non-Formulary Medication (Bupropion Hcl [Bupropion Hcl Sr]) 400 mg PO DAILY [facility] Non-Formulary Medication (Tizanidine Hcl [Zanaflex]) 2 mg PO TID PRN PRN Reason: MUSCLE SPASMS Pantoprazole Sodium (Protonix -) 40 mg PO DAILY [facility] Last Admin: 05/14/17 10:15 Dose: 40 mg Polyethylene Glycol (Miralax (For Daily Use) -) 17 gm PO DAILY [facility] Last Admin: 05/14/17 10:18 Dose: Not Given Quetiapine Fumarate (Seroquel -) mg PO HS [facility] Senna (Senna -) 2 tab PO [facility] Last Admin: 05/13/17 21:58 Dose: 2 tab - Allergies Allergies: Allergies Allergy/AdvReac Type Severity Reaction Status Date / Time hydromorphone HCl Allergy Intermediate Itching Verified 05/08/17 20:02 [From Dilaudid] amoxicillin [Amoxicillin] Allergy Verified 05/08/17 20:02 ampicillin Allergy Verified 05/08/17 20:02 aspirin Allergy Difficulty Verified 05/08/17 20:02 Breathing cranberry Allergy Rash Verified 05/08/17 20:02 doxycycline Allergy Rash Verified 05/08/17 20:02 Fish Containing Products Allergy Difficulty Verified 05/08/17 20:02 Breathing haloperidol [From Haldol] Allergy Rash Verified 05/08/17 20:02 haloperidol lactate Allergy Rash Verified 05/08/17 20:02 [From Haldol] ibuprofen [From Motrin] Allergy Difficulty Verified 05/08/17 20:02 Breathing ketorolac tromethamine Allergy Rash Verified 05/08/17 20:02 [From Toradol] levofloxacin [From Levaquin] Allergy Rash Verified 05/08/17 20:02 milk Allergy Difficulty Verified 05/08/17 20:02 Breathing oxycodone HCl [From Percocet] Allergy Rash Verified 05/08/17 20:02 Penicillins Allergy Difficulty Verified 05/08/17 20:02 Breathing sulfamethoxazole Allergy Rash Verified 05/08/17 20:02 [From Bactrim] trimethoprim [From Bactrim] Allergy Verified 05/08/17 20:02 warfarin sodium Allergy Verified 05/08/17 20:02 [From Coumadin] Gravy Allergy Unknown Uncoded 05/08/17 20:02 Cranberry/Cranberry juice Allergy Uncoded 05/08/17 20:02 raw tomato Allergy Uncoded 05/13/17 13:04 - Current Living Status Usual Living Arrangement: Retirement - Current Mental Status Evaluation Appearance: Other (d) Attitude: Guarded - Affect Affect: Constrictive Appropriateness: Not Appropriate, Appropriate to Content - Mood Mood: Depressed, Anxious - Speech/Language Expressive: Coherent Receptive: Age Appropriate Comprehension of Spoken Words - Psychomotor Activity Psychomotor Activity: Normal, Slowed - Thought Content Type: Auditory - Cognition Attention: Alert Orientation: Person, Place - Abstraction Judgement: Minimally Impaired (some aspects of test not done- unable to obtain due to her resistance) - Impulse Control Impulse Control: Minimally Impaired - Suicidal Ideation Suicidal Ideation: No - Homicidal Ideation Homicidal Ideation: No Assessment/Plan Auditory hallucinations Patient is not acutely psychotic. Her hospitalization is a stressful event for her which can explain the increase in auditory hallucinations Continue current meds
[2017-05-14] MEDS ORDERED: INSULIN (NOVOLOG) ASPART 100 UNITS/ML 10ML VIAL ONE (21:05)
[2017-05-14] MEDS: DOCUSATE SODIUM 100 MG CAPSULE (FP) PO SCH (21:38)
[2017-05-14] MEDS: DIVALPROEX SODIUM 250 MG TABLET E.C. (FP) PO SCH (21:42)
[2017-05-14] MEDS: SENNOSIDES 8.6MG TABLET (FP) PO SCH (21:42)
[2017-05-14] MEDS: ATORVASTATIN CA 20 MG TABLET (FP) PO SCH (21:43)
[2017-05-14] MEDS ORDERED: QUEtiapine FUMARATE 300 MG TABLET PO ONE (21:55)
[2017-05-14] MEDS ORDERED: QUEtiapine FUMARATE 100 MG TABLET (FP) PO SCH (22:00)
--- NOTE | 2017-05-15 05:50 | PN ---
Physical Exam: SUBJECTIVE: Patient seen and examined by me this AM - No major overnight events. Pt more somnolent on exam this AM. complaining of poor sleep, nightmares overnight. Pt still with pain in R hip. Continues to endorse no sensation throughout R leg, however reacts to passive joint manipulation. - Has not been OOB/ambulating. - Denies any fever, PATIÑO/lightheadness, CP, SOB, cough, N/V, abdominal pain, dysuria, diarrhea - Pt endorses continued auditory hallucinations. Dr. Valverde contacted this PM , informed. States that she does not believe pt is threat to herself or others, not a candidate for inpt psych. - Pt denied from all acute rehab facilities per SW. Will f/u tomorrow. OBJECTIVE: Vital Signs Intake & Output 05/12/17 05/13/17 05/14/17 05/15/17 23:59 23:59 23:59 23:59 Intake Total 1380 2286 Balance 1380 2286 Weight 146.964 kg 147 kg Period Temp Pulse Resp BP Sys/Schultz Pulse Ox Last 24 Hr 98.3 F-98.9 F 81-97 20-20 107-128/54-91 97 GENERAL: A&Ox3 HEAD: NCAT EYES: PERRL, extraocular movements intact, sclera anicteric, conjunctiva clear. No ptosis. ENT: Ears normal, nares patent, oropharynx clear without exudates, moist mucous membranes. NECK: Trachea midline, No JVD or thyromegaly, supple. LUNGS: Decreased bibasilar breath sounds. No wheezes, no crackles, no accessory muscle use. HEART: Regular rate and rhythm, S1, S2 without murmur, rub or gallop. ABDOMEN: Globular abdomen, tender to palpation in RLQ. Normoactive bowel sounds , conscious guarding w/ palpation in RLQ, no rebound, no hepatosplenomegaly, no masses. Upper EXTREMITIES: 2+ pulses, warm, well-perfused, no edema. Lower extremities: 2+ pulses BL DP, PT. wwp. No edema or lesions. NEUROLOGICAL: Cranial nerves II through XII grossly intact. Normal speech, gait not observed. 4/5 strength with L arm flexion/extension at elbow. 5/5 strength in R arm flexion/extension. 2+ R biceps reflex, 2+ left reflex. No sensation to light touch on R arm in all dermatomes. Normal on L. 5/5 strength throughout in L leg. 2/5 strength on dorse/plantarflexion of R foot. No sensation to light touch from hip down on R side, still reacts to passive joint manipulation. Preserved sensation to light touch on L. 2+ patellar reflexes BL. PSYCH: Constricted affect, appropriate. Denies any delusions. Endorses auditory hallucinations". Denies thoughts of homicide/suicide to interviewer. Good insight, poor judgment SKIN: Warm, dry, normal turgor, no rashes or lesions noted Laboratory Results - last 24 hr CBC, BMP 05/13/17 06:00 05/13/17 06:00 05/14/17 05/14/17 05/14/17 06:14 11:13 16:44 POC Glucometer 110 121 138 05/14/17 21:22 POC Glucometer 118 Active Medications Generic Name Dose Route Start Last Admin Trade Name Freq PRN Reason Stop Dose Admin Albuterol Sulfate 2 puff 05/13/17 07:15 05/14/17 14:26 Ventolin Hfa Inhaler - IH Not Given Q4H BHARAT Albuterol/Ipratropium 1 amp 05/13/17 06:29 Duoneb - NEB Q4H PRN SHORTNESS OF BREATH Apixaban 5 mg 05/13/17 22:00 05/14/17 21:43 Eliquis - PO 5 mg BID BHARAT Administration Atorvastatin Calcium 20 mg 05/13/17 22:00 05/14/17 21:43 Lipitor - PO 20 mg HS BHARAT Administration Benztropine Mesylate 1 mg 05/14/17 10:00 05/14/17 10:17 Cogentin - PO 1 mg DAILY BHARAT Administration Budesonide/Formoterol Fumarate 1 puff 05/13/17 10:00 05/14/17 10:16 Symbicort 80/4.5mcg - IH Not Given DAILY BHARAT Clonazepam 1 mg 05/14/17 10:00 05/14/17 21:42 Klonopin - PO 1 mg BID BHARAT Administration Divalproex Sodium 750 mg 05/14/17 22:00 05/14/17 21:42 Depakote - PO 750 mg HS BHARAT Administration Docusate Sodium 300 mg 05/13/17 22:00 05/14/17 21:38 Colace - PO 300 mg HS BHARAT Administration Ferrous Sulfate 325 mg 05/13/17 10:00 05/14/17 10:15 Feosol - PO 325 mg DAILY BHARAT Administration Fluoxetine HCl 40 mg 05/14/17 10:00 05/14/17 10:15 Prozac - PO 40 mg DAILY BHARAT Administration Gabapentin 300 mg 05/14/17 14:00 05/14/17 21:42 Neurontin - PO 300 mg TID BHARAT Administration Sodium Chloride 1,000 mls @ 83 mls/hr 05/13/17 02:00 05/14/17 06:12 Normal Saline - IV 83 mls/hr ASDIR BHARAT Administration Insulin Aspart 1 vial 05/13/17 07:00 05/14/17 21:25 Novolog Vial Sliding Scale - SQ Not Given ACHS [facility] Protocol Levothyroxine Sodium 50 mcg 05/14/17 07:00 05/14/17 06:15 Synthroid - PO 50 mcg DAILY@0700 BHARAT Administration Meclizine HCl 12.5 mg 05/13/17 02:46 Antivert - PO Q6H PRN VERTIGO Metoprolol Succinate 12.5 mg 05/13/17 22:00 05/14/17 21:32 Toprol Xl - PO Not Given BID BHARAT Morphine Sulfate 4 mg 05/13/17 02:09 05/14/17 20:13 Morphine Sulfate IVPUSH 4 mg Q4H PRN Administration PAIN Non-Formulary Medication 400 mg 05/14/17 10:00 Bupropion Hcl [Bupropion Hcl Sr] PO DAILY BHARAT Non-Formulary Medication 2 mg 05/14/17 07:27 Tizanidine Hcl [Zanaflex] PO TID PRN MUSCLE SPASMS Pantoprazole Sodium 40 mg 05/13/17 10:00 05/14/17 10:15 Protonix - PO 40 mg DAILY BHARAT Administration Polyethylene Glycol 17 gm 05/14/17 10:00 05/14/17 10:18 Miralax (For Daily Use) - PO Not Given DAILY BHARAT Quetiapine Fumarate mg 05/14/17 22:00 Seroquel - PO HS BHARAT Senna 2 tab 05/13/17 22:00 05/14/17 21:42 Senna - PO 2 tab HS BHARAT Administration No micro EKG: NSR, rate of 88, NAD, QTC 469 Imaging: Pelvic CT 05/12 - R acetabular fx on CT R Hip XR 05/12 - Finding suggestive of subtle acetabular fx. Non-con head CT 05/13 - Mild volume loss and mild to moderate ventriculomegaly that has increased since prior examination dated 01/25/2014. Neurology consult is suggested. No mass lesion, gross acute infarct or intracranial hemorrhage are identified Venous Duplex 05/15 - Impression: No DVT is identified involving either leg. Please see above. An approximately 4.4 x 2 x 1.3 cm right popliteal fossa cyst is noted. ASSESSMENT/PLAN: Pt is a 51 yo F with pmh of CAD, [place], CVA, Asthma, COPD, Bipolar disorder, HTN, HLD, Hypothyroidism, DM2, cocaine abuse, PUD, PTSD presented late night 05/12 w / severe constant hip pain with radiation to R foot after mechanical fall at home due to episode of vertigo (no LOC, chronic vertigo). Pt pending placement at short-term rehab facility. Pt endorsing auditory hallucinations, psych aware. Non-surgical management of R acetabular fx. #R acetabular fracture - Non-displaced R posterior acetabular fx on 05/12 CT scan of pelvis - Orth consulted. Recommend to non-surgical intervention. Limited weight- bearing of R LE - IVFs - Hgb 12.3 today. Monitor for further bleeds or hypotension - Decrease Morphine 4mg to 2mg q4h PRN for pain control. Add oxycodone 10mg PO q6h PRN - PT eval #Mechanical fall/chronic vertigo - 05/[address] negative for acute bleed, mass or midline shift. Moderate ventriculomegaly/volume loss - Cardiology consulted. Recs appreciated. - Meclizine 12.5 q6h for vertigo - Fall risk #PSA - Buproprion 400mg daily #Bipolar disorder/PTSD - Depakote 750 qHs - Klonopin 1mg PO BID - Seroquel 300 qHs #COPD - Ventolin 1 puff q4h prn - Symbicort 1 puff po daily #HTN -Toprol XL 12.5 BID - Monitor BP #CAD - Cardiology consulted. Recs appreciated. - Decrease Eliquis 5mg BID to 2.5mg BID per cardiology recs - Nitroglycerin 0.4mg SL PRN - Toprol XL 12.5 BID - Atovastatin 20mg po qHs - Hold lasix #Hypothyroidism - TSH 1.55 -Synthroid 50mcg daily #DM2 - BG controlled on admission -ISS -BGM ACHS - Gabapentin 300mg TID for neuropathy per home med list #Depression - Prozac 40 mg daily for now #Anemia - Ferrous sulfate 325mg daily #PPX - Eliquis 2.5mg BID - Protonix 40mg daily #FEN F: PO hydration E: Daily BMPs, no abs N: Diabetic diet Dispo: Continue to monitor on med/surg floors. Pending placement at acute rehab facility. Plan discussed with attending, Dr. Edwin Powell, PGY1 Visit type - Emergency Visit Emergency Visit: Yes ED Registration Date: 05/12/17 Care time: The patient presented to the Emergency Department on the above date and was hospitalized for further evaluation of their emergent condition. - New Patient This patient is new to me today: No - Critical Care Critical Care patient: No
[2017-05-15] MEDS: INSULIN SLIDING SCALE (NOVOLOG) 1 VIAL SQ SCH ×4 (06:36→23:31)
[2017-05-15] MEDS: LEVOTHYROXINE NA 100 MCG TABLET (FP) PO SCH (06:37)
[2017-05-15] MEDS: GABAPENTIN 300 MG CAPSULE (FP) PO SCH ×3 (06:37→23:36)
[2017-05-15] MEDS: SODIUM CHLORIDE 1,000 ML IV SCH (06:37)
[2017-05-15] MEDS: morphine SULFATE 4 MG/ML VIAL IVPUSH PRN ×4 (06:38→23:22)
[2017-05-15] MEDS ORDERED: PT OWN MED DRAWER 7, Y5N ONE ×2 (09:25→23:18)
[2017-05-15] MEDS: FERROUS SO4 325 MG TABLET (FP) PO SCH (09:28)
[2017-05-15] MEDS: FLUoxetine HCL 20 MG CAPSULE (FP) PO SCH (09:28)
[2017-05-15] MEDS: PANTOPRAZOLE 40 MG TABLET (FP) PO SCH (09:28)
[2017-05-15] MEDS: clonazePAM 0.5 MG TABLET PO SCH ×2 (09:28→23:38)
[2017-05-15] MEDS: POLYETHYLENE GLYCOL 3350 119 GM BTL PO SCH (09:29)
[2017-05-15] MEDS: METOPROLOL SUCCINATE 25 MG TAB.SR.24H (FP) PO SCH ×2 (09:29→23:32)
[2017-05-15] MEDS: BUDESONIDE/FORMETEROL FUMARATE 80/4.5 mcg INHALER IH SCH (09:29)
[2017-05-15] MEDS: APIXABAN 5 MG TABLET PO SCH (09:30)
[2017-05-15] MEDS: BENZTROPINE MESYLATE 0.5 MG TABLET (FP) PO SCH (09:30)
[2017-05-15 10:58] LABS: BASO % 1.2 % (0-2.0); EOS % 2.3 % (0-4.5); MCH 29.2 pg (25.7-33.7); MCHC 34.3 g/dl (32.0-36.0); MEAN CELL VOLUME 85.3 fl (80-96); MEAN PLT VOLUME 10.2 fl (7.5-11.1); NEUT % 66.3 % (42.8-82.8); PLATELET COUNT 142 K/MM3 (134-434); RDW 16.3 % (11.6-15.6); WHITE BLOOD COUNT 8.9 K/mm3 (4.0-10.0)
[2017-05-15] MEDS: ALBUTEROL SO4 18 GM HFA INHALER IH SCH (11:18)
[2017-05-15 11:34] LABS: ANION GAP 6 (8-16); CALCIUM 8.3 mg/dL (8.5-10.1); CO2 28 mmol/L (21-32); GLUCOSE,RANDOM 77 mg/dL (74-106)
--- NOTE | 2017-05-15 13:38 | PN ---
Progress Note, Physician History of Present Illness: Right hip discomfort. - Current Medication List Current Medications: Active Medications Albuterol Sulfate (Ventolin Hfa Inhaler -) 2 puff IH Q4H [facility] Last Admin: 05/15/17 11:18 Dose: Not Given Albuterol/Ipratropium (Duoneb -) 1 amp NEB Q4H PRN PRN Reason: SHORTNESS OF BREATH Apixaban (Eliquis -) 5 mg PO BID [facility] Last Admin: 05/15/17 09:30 Dose: 5 mg Atorvastatin Calcium (Lipitor -) 20 mg PO HS [facility] Last Admin: 05/14/17 21:43 Dose: 20 mg Benztropine Mesylate (Cogentin -) 1 mg PO DAILY [facility] Last Admin: 05/15/17 09:30 Dose: 1 mg Budesonide/Formoterol Fumarate (Symbicort 80/4.5mcg -) 1 puff IH DAILY [facility] Last Admin: 05/15/17 09:29 Dose: Not Given Clonazepam (Klonopin -) 1 mg PO BID [facility] Last Admin: 05/15/17 09:28 Dose: 1 mg Divalproex Sodium (Depakote -) 750 mg PO HS [facility] Last Admin: 05/14/17 21:42 Dose: 750 mg Docusate Sodium (Colace -) 300 mg PO HS [facility] Last Admin: 05/14/17 21:38 Dose: 300 mg Ferrous Sulfate (Feosol -) 325 mg PO DAILY [facility] Last Admin: 05/15/17 09:28 Dose: 325 mg Fluoxetine HCl (Prozac -) 40 mg PO DAILY [facility] Last Admin: 05/15/17 09:28 Dose: 40 mg Gabapentin (Neurontin -) 300 mg PO TID [facility] Last Admin: 05/15/17 06:37 Dose: 300 mg Sodium Chloride (Normal Saline -) 1,000 mls @ 83 mls/hr IV ASDIR [facility] Last Admin: 05/15/17 06:37 Dose: 83 mls/hr Insulin Aspart (Novolog Vial Sliding Scale -) 1 vial SQ ACHS [facility] PRN Reason: Protocol Last Admin: 05/15/17 11:19 Dose: Not Given Levothyroxine Sodium (Synthroid -) 50 mcg PO DAILY@0700 [facility] Last Admin: 05/15/17 06:37 Dose: 50 mcg Meclizine HCl (Antivert -) 12.5 mg PO Q6H PRN PRN Reason: VERTIGO Metoprolol Succinate (Toprol Xl -) 12.5 mg PO BID [facility] Last Admin: 05/15/17 09:29 Dose: 12.5 mg Morphine Sulfate (Morphine Sulfate) 4 mg IVPUSH Q4H PRN PRN Reason: PAIN Last Admin: 05/15/17 11:13 Dose: 4 mg Non-Formulary Medication (Bupropion Hcl [Bupropion Hcl Sr]) 400 mg PO DAILY [facility] Non-Formulary Medication (Tizanidine Hcl [Zanaflex]) 2 mg PO TID PRN PRN Reason: MUSCLE SPASMS Pantoprazole Sodium (Protonix -) 40 mg PO DAILY [facility] Last Admin: 05/15/17 09:28 Dose: 40 mg Polyethylene Glycol (Miralax (For Daily Use) -) 17 gm PO DAILY [facility] Last Admin: 05/15/17 09:29 Dose: Not Given Quetiapine Fumarate (Seroquel -) mg PO [facility] Senna (Senna -) 2 tab PO [facility] Last Admin: 05/14/17 21:42 Dose: 2 tab - Objective Vital Signs: Vital Signs Temperature 98.3 F 05/15/17 09:00 Pulse Rate 80 05/15/17 11:59 Respiratory Rate 20 05/15/17 09:00 Blood Pressure 114/73 05/15/17 09:00 O2 Sat by Pulse Oximetry (%) 98 05/15/17 11:59 Constitutional: Yes: No Distress, Calm Neck: Yes: Supple Cardiovascular: Yes: Regular Rate and Rhythm Respiratory: Yes: Regular, Diminished Gastrointestinal: Yes: Normal Bowel Sounds, Soft, Abdomen, Obese Edema: No Labs: CBC, BMP 05/15/17 10:50 05/15/17 10:50 INR, PTT INR 1.10 (0.82-1.09) 05/13/17 06:00 Problem List - Problems (1) Pelvic fracture Code(s): S32.9XXA - FRACTURE OF UNSP PARTS OF LUMBOSACRAL SPINE AND PELVIS, INIT Qualifiers: Encounter type: subsequent encounter Pelvic bone location: acetabulum Sublocation of acetabulum: posterior wall Fracture type: closed Fracture alignment: nondisplaced Laterality: right (2) Hx of prison use of 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 Code(s): Z79.01 - HALF-WAY (CURRENT) USE OF ANTICOAGULANTS (3) Bipolar disorder Code(s): F31.9 - BIPOLAR DISORDER, UNSPECIFIED Qualifiers: Active/Remission status: in full remission Most recent bipolar episode type : most recent episode depressed (4) 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 Code(s): E11.9 - TYPE 2 DIABETES MELLITUS WITHOUT COMPLICATIONS Qualifiers: 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 type: type 2 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 complication status: without complication (5) HTN (hypertension) Code(s): I10 - ESSENTIAL (PRIMARY) HYPERTENSION Qualifiers: Hypertension type: essential hypertension Qualified Code(s): I10 - Essential (primary) hypertension (6) Hyperlipidemia Code(s): E78.5 - HYPERLIPIDEMIA, UNSPECIFIED Qualifiers: Hyperlipidemia type: pure hypercholesterolemia Qualified Code(s): E78.00 - Pure hypercholesterolemia, unspecified; E78.0 - Pure hypercholesterolemia (7) ARVIND treated with BiPAP Code(s): G47.33 - OBSTRUCTIVE SLEEP APNEA (ADULT) (PEDIATRIC) (8) Pre-operative cardiovascular examination Code(s): Z01.810 - ENCOUNTER FOR PREPROCEDURAL CARDIOVASCULAR EXAMINATION Assessment/Plan Cat Scan: Report Reviewed, Image Reviewed (Nondispaced acetabulum fracture) 1. Non-displaced Fracture of right acetabulum 2. CAD h/o [place] 3. Hypothyroidism 4. Polysubstance abuse, Bipolar disorder and schizophrenia 5. COPD 6. CVA/TIA 7. Migraine headache PLAN: 1. Non-surgical management as per Orthopedics 2. Continue Metoprolol ER 12.5 mg PO BID and Atorvastatin 20 mg qhs. Lasix held 3. Decrease Eliquis 2.5 bid for DVT prophylaxis 4. Continue analgesics as needed
--- NOTE | 2017-05-15 19:19 | PN ---
Teaching Attending Note Name of Resident: Darrin Powell ATTENDING PHYSICIAN STATEMENT I saw and evaluated the patient. I reviewed the resident's note and discussed the case with the resident. I agree with the resident's findings and plan as documented. SUBJECTIVE: No fever or chills. cont to hear voices. does not have suicidal ideation . pain in R pevic area OBJECTIVE: NAD , awake , alert , and cooperative CV: RRR Lungs : CTAB Abd: soft, NT< ND < NL BS Ext : no edema , TTP over R groin ASSESSMENT AND PLAN: 51 y/o lady with h/o CAD, s/p MT, CVA/TIA, asthma, schizophrenia, HTN, and other medical problems who presented after a mechanical fall and was found to have R pelvic Fx 1- R acetabular Fx and R inferior pubic Ramus Fx . - No surgical intervention - cont pain control ( decrease morphine dose and add oxycodone ) - PT 2- Auditory hallucinations : case was revisited with Psych. further eval tomorrow - cont bupropion - cont seroquel - cont prozac and Klonopin 3- h/o cad and MT : - cont BB - not on ASA 4-h/o CVA: no h/o of Afib - will confirm dose of eliquis and indication 5- DVT PX : on eliquis DC IVF
[2017-05-15] MEDS ORDERED: oxyCODONE HCL 5 MG TABLET PO ONE (20:19)
[2017-05-15] MEDS ORDERED: morphine SULFATE 4 MG/ML VIAL IVPUSH ONE (20:20)
[2017-05-15] MEDS ORDERED: INSULIN (NOVOLOG) ASPART 100 UNITS/ML 10ML VIAL ONE (23:16)
[2017-05-15] MEDS: SENNOSIDES 8.6MG TABLET (FP) PO SCH (23:36)
[2017-05-15] MEDS: ATORVASTATIN CA 20 MG TABLET (FP) PO SCH (23:36)
[2017-05-15] MEDS: QUEtiapine FUMARATE 100 MG TABLET (FP) PO SCH (23:37)
[2017-05-15] MEDS: DOCUSATE SODIUM 100 MG CAPSULE (FP) PO SCH (23:37)
[2017-05-15] MEDS: DIVALPROEX SODIUM 250 MG TABLET E.C. (FP) PO SCH (23:39)
[2017-05-15] MEDS: APIXABAN 2.5 MG TABLET PO SCH (23:39)
[2017-05-16] MEDS: ALBUTEROL SO4 18 GM HFA INHALER IH SCH ×7 (01:13→20:00)
[2017-05-16] MEDS: morphine SULFATE 4 MG/ML VIAL IVPUSH PRN ×2 (03:32→09:13)
[2017-05-16] MEDS: INSULIN SLIDING SCALE (NOVOLOG) 1 VIAL SQ SCH ×4 (07:10→21:39)
[2017-05-16] MEDS: GABAPENTIN 300 MG CAPSULE (FP) PO SCH ×3 (07:11→21:40)
[2017-05-16] MEDS: LEVOTHYROXINE NA 100 MCG TABLET (FP) PO SCH (07:11)
--- NOTE | 2017-05-16 08:22 | PN ---
Physical Exam: SUBJECTIVE: Patient seen and examined by me this AM - Pt endorsing command auditory hallucinations overnight, telling her to hurt herself. Placed on 1to1. No active attempts at self-harm. Psychiatrist Dr. Valverde attempted to be contacted. Pt given morphine 4mg IV given for pain overnight - Very somnolent this AM. Fell asleep during exam. Continues to endorse auditory command hallucinations, but no active plan. Endorses visual hallucinations of past "people who hurt me". Still with pain, muscle spasms in R hip. Better tolerance to passive movement on exam. Endorsing mild PATIÑO. States she can feel more in R leg now. OBJECTIVE: Vital Signs Intake & Output 05/13/17 05/14/17 05/15/17 05/16/17 23:59 23:59 23:59 23:59 Intake Total 1380 2618 1727 Balance 1380 2618 1727 Weight 147 kg Period Temp Pulse Resp BP Sys/Schultz Pulse Ox Last 24 Hr 97.4 F-98.4 F 75-97 18-20 114-120/57-73 98-98 GENERAL: A&Ox3. Very somnolent in AM, falling asleep during exam HEAD: NCAT EYES: PERRL, extraocular movements intact, sclera anicteric, conjunctiva clear. No ptosis. ENT: Ears normal, nares patent, oropharynx clear without exudates, moist mucous membranes. NECK: Trachea midline, No JVD or thyromegaly, supple. LUNGS: Decreased bibasilar breath sounds. No wheezes, no crackles, no accessory muscle use. HEART: Regular rate and rhythm, S1, S2 without murmur, rub or gallop. ABDOMEN: Globular abdomen, monitor and storage bin tender to palpation in RLQ. Normoactive bowel sounds, guarding w/ palpation in RLQ, no rebound, no hepatosplenomegaly, no masses. Upper EXTREMITIES: 2+ pulses, warm, well-perfused, no edema. Lower extremities: 2+ pulses BL DP, PT. wwp. No edema or lesions. More tolerant of passive leg manipulation of R leg. Tender to palpation at R hip, RLQ and with significant external rotation of R leg at hip. NEUROLOGICAL: Cranial nerves II through XII grossly intact. Normal speech, gait not observed. 4/5 strength with L arm flexion/extension at elbow. 5/5 strength in R arm flexion/extension. 2+ R biceps reflex, 2+ left reflex. No sensation to light touch on R arm in all dermatomes. Normal on L. 5/5 strength throughout in L leg. 2/5 strength on dorse/plantarflexion of R foot. Endorses some mild sensation to light touch on anterior and medial thigh on R side. Preserved sensation to light touch on L. 2+ patellar reflexes BL. PSYCH: Constricted affect, appropriate. Denies any delusions. Endorses auditory hallucinations, visual hallucinations. States voices are telling her to hurt herself. Denies any homicidal ideation, + suicidal ideation w/o active plan. Good insight, poor judgment SKIN: Warm, dry, normal turgor, no rashes or lesions noted Laboratory Results - last 24 hr CBC, BMP 05/15/17 10:50 05/15/17 10:50 05/15/17 05/15/17 05/15/17 10:50 10:50 11:17 WBC 8.9 RBC 3.78 Hgb 11.1 Hct 32.3 L MCV 85.3 MCH 29.2 MCHC 34.3 RDW 16.3 H Plt Count 142 MPV 10.2 Neutrophils % 66.3 Lymphocytes % 23.1 Monocytes % 7.1 Eosinophils % 2.3 D Basophils % 1.2 Sodium 145 Potassium 3.9 Chloride 111 H Carbon Dioxide 28 Anion Gap 6 L BUN 22 H Creatinine 1.0 POC Glucometer 99 Random Glucose 77 Calcium 8.3 L 05/15/17 05/15/17 05/16/17 16:51 23:30 07:09 WBC RBC Hgb Hct MCV MCH MCHC RDW Plt Count MPV Neutrophils % Lymphocytes % Monocytes % Eosinophils % Basophils % Sodium Potassium Chloride Carbon Dioxide Anion Gap BUN Creatinine POC Glucometer 132 158 88 Random Glucose Calcium Active Medications Generic Name Dose Route Start Last Admin Trade Name Freq PRN Reason Stop Dose Admin Albuterol Sulfate 2 puff 05/13/17 07:15 05/16/17 04:29 Ventolin Hfa Inhaler - IH Not Given Q4H [facility] Albuterol/Ipratropium 1 amp 05/13/17 06:29 Duoneb - NEB Q4H PRN SHORTNESS OF BREATH Apixaban 2.5 mg 05/15/17 22:00 05/15/17 23:39 Eliquis - PO 2.5 mg BID [facility] Administration Atorvastatin Calcium 20 mg 05/13/17 22:00 05/15/17 23:36 Lipitor - PO 20 mg HS [facility] Administration Benztropine Mesylate 1 mg 05/14/17 10:00 05/15/17 09:30 Cogentin - PO 1 mg DAILY [facility] Administration Budesonide/Formoterol Fumarate 1 puff 05/13/17 10:00 05/15/17 09:29 Symbicort 80/4.5mcg - IH Not Given DAILY [facility] Clonazepam 1 mg 05/14/17 10:00 05/15/17 23:38 Klonopin - PO 1 mg BID [facility] Administration Divalproex Sodium 750 mg 05/14/17 22:00 05/15/17 23:39 Depakote - PO 750 mg HS [facility] Administration Docusate Sodium 300 mg 05/13/17 22:00 05/15/17 23:37 Colace - PO 300 mg HS [facility] Administration Ferrous Sulfate 325 mg 05/13/17 10:00 05/15/17 09:28 Feosol - PO 325 mg DAILY [facility] Administration Fluoxetine HCl 40 mg 05/14/17 10:00 05/15/17 09:28 Prozac - PO 40 mg DAILY [facility] Administration Gabapentin 300 mg 05/14/17 14:00 05/16/17 07:11 Neurontin - PO 300 mg TID [facility] Administration Insulin Aspart 1 vial 05/13/17 07:00 05/16/17 07:10 Novolog Vial Sliding Scale - SQ Not Given ACHS [facility] Protocol Levothyroxine Sodium 50 mcg 05/14/17 07:00 05/16/17 07:11 Synthroid - PO 50 mcg DAILY@0700 [facility] Administration Meclizine HCl 12.5 mg 05/13/17 02:46 Antivert - PO Q6H PRN VERTIGO Metoprolol Succinate 12.5 mg 05/13/17 22:00 05/15/17 23:32 Toprol Xl - PO Not Given BID [facility] Morphine Sulfate 2 mg 05/15/17 19:19 05/16/17 03:32 Morphine Sulfate IVPUSH 2 mg Q4H PRN Administration PAIN Non-Formulary Medication 400 mg 05/14/17 10:00 Bupropion Hcl [Bupropion Hcl Sr] PO DAILY [facility] Non-Formulary Medication 2 mg 05/14/17 07:27 Tizanidine Hcl [Zanaflex] PO TID PRN MUSCLE SPASMS Oxycodone HCl 10 mg 05/15/17 19:18 Roxicodone - PO Q6H PRN PAIN Pantoprazole Sodium 40 mg 05/13/17 10:00 05/15/17 09:28 Protonix - PO 40 mg DAILY [facility] Administration Polyethylene Glycol 17 gm 05/14/17 10:00 05/15/17 09:29 Miralax (For Daily Use) - PO Not Given DAILY [facility] Quetiapine Fumarate 300 mg 05/15/17 22:00 05/15/17 23:37 Seroquel - PO 300 mg HS [facility] Administration Senna 2 tab 05/13/17 22:00 05/15/17 23:36 Senna - PO 2 tab HS [facility] Administration No micro EKG: NSR, rate of 88, NAD, QTC 469 Imaging: Pelvic CT 05/12 - R acetabular fx on CT R Hip XR 05/12 - Finding suggestive of subtle acetabular fx. Non-con head CT 05/13 - Mild volume loss and mild to moderate ventriculomegaly that has increased since prior examination dated 01/25/2014. Neurology consult is suggested. No mass lesion, gross acute infarct or intracranial hemorrhage are identified Venous Duplex 05/15 - Impression: No DVT is identified involving either leg. Please see above. An approximately 4.4 x 2 x 1.3 cm right popliteal fossa cyst is noted. ASSESSMENT/PLAN: Pt is a 51 yo F with pmh of CAD, NM, CVA, Asthma, COPD, Bipolar disorder, HTN, HLD, Hypothyroidism, DM2, cocaine abuse, PUD, PTSD presented late night 05/12 w / severe constant hip pain with radiation to R foot after mechanical fall at home due to episode of vertigo (no LOC, chronic vertigo). Pt continues to endorse command auditory hallucinations, states voices are telling her to harm herself. Still on . Plan for placement at in psych facility. Psychiatry contacted again for reevaluation. No significant change in R hip pain. #R acetabular fracture - Non-displaced R posterior acetabular fx on 05/12 CT scan of pelvis - Orth consulted. Recommend to non-surgical intervention. Limited weight- bearing of R LE - IVFs - D/c morphine. oxycodone 10mg PO q6h PRN - Baclofen once time dose tonight for spasm. Hesitant to give muscle relaxants, as pt already very sedated. - PT eval #Auditory command hallucinations - Psychiatry consulted again. Will re-evaluate in PM. - Cont all home psych meds - Awaiting placement in inpt psych facility - Will require 2PC per SW - Cont 1to1 #Mechanical fall/chronic vertigo - 05/[address] negative for acute bleed, mass or midline shift. Moderate ventriculomegaly/volume loss - Cardiology consulted. Recs appreciated. - Meclizine 12.5 q6h for vertigo - Fall risk #Bipolar disorder/PTSD/psychosis - Depakote 750 qHs - Klonopin 1mg PO BID - Seroquel 300 qHs - Bupropion 300mg (400 mg non formulary) #COPD - Ventolin 1 puff q4h prn - Symbicort 1 puff po daily #HTN -Toprol XL 12.5 BID - Monitor BP #CAD - Cardiology consulted. Recs appreciated. - Eliquis 5mg for hx of DVTs (2 month ago, most recent) and CVA - Nitroglycerin 0.4mg SL PRN - Toprol XL 12.5 BID - Atovastatin 20mg po qHs - Hold lasix #Hypothyroidism - TSH 1.55 -Synthroid 50mcg daily #DM2 - BG controlled on admission -ISS -BGM ACHS - Gabapentin 300mg TID for neuropathy per home med list #Depression - Prozac 40 mg daily for now #Anemia - Ferrous sulfate 325mg daily #PPX - Eliquis 5mg BID - Protonix 40mg daily #FEN F: PO hydration E: Daily BMPs, no abs N: Diabetic diet Dispo: Continue to monitor on med/surg floors. Pending placement at inpt psych facility. Plan discussed with attending, Dr. Edwin Powell, PGY1 Visit type - Emergency Visit Emergency Visit: Yes ED Registration Date: 05/12/17 Care time: The patient presented to the Emergency Department on the above date and was hospitalized for further evaluation of their emergent condition. - New Patient This patient is new to me today: No - Critical Care Critical Care patient: No
[2017-05-16] MEDS ORDERED: PT OWN MED DRAWER 7, Y5N ONE (08:47)
[2017-05-16] MEDS: FERROUS SO4 325 MG TABLET (FP) PO SCH (09:17)
[2017-05-16] MEDS: FLUoxetine HCL 20 MG CAPSULE (FP) PO SCH (09:17)
[2017-05-16] MEDS: clonazePAM 0.5 MG TABLET PO SCH ×2 (09:17→21:40)
[2017-05-16] MEDS: PANTOPRAZOLE 40 MG TABLET (FP) PO SCH (09:18)
[2017-05-16] MEDS: BUDESONIDE/FORMETEROL FUMARATE 80/4.5 mcg INHALER IH SCH (09:19)
[2017-05-16] MEDS: METOPROLOL SUCCINATE 25 MG TAB.SR.24H (FP) PO SCH ×2 (09:19→21:50)
[2017-05-16] MEDS: BENZTROPINE MESYLATE 0.5 MG TABLET (FP) PO SCH (09:20)
[2017-05-16] MEDS: APIXABAN 2.5 MG TABLET PO SCH ×2 (09:21→21:41)
[2017-05-16] MEDS: POLYETHYLENE GLYCOL 3350 119 GM BTL PO SCH (10:00)
--- NOTE | 2017-05-16 12:18 | PN ---
Progress Note, Physician History of Present Illness: Right hip discomfort improved, appetite improved. - Current Medication List Current Medications: Active Medications Albuterol Sulfate (Ventolin Hfa Inhaler -) 2 puff IH Q4H [facility] Last Admin: 05/16/17 07:45 Dose: 2 puff Albuterol/Ipratropium (Duoneb -) 1 amp NEB Q4H PRN PRN Reason: SHORTNESS OF BREATH Apixaban (Eliquis -) 5 mg PO BID [facility] Atorvastatin Calcium (Lipitor -) 20 mg PO HS [facility] Last Admin: 05/15/17 23:36 Dose: 20 mg Benztropine Mesylate (Cogentin -) 1 mg PO DAILY [facility] Last Admin: 05/16/17 09:20 Dose: 1 mg Budesonide/Formoterol Fumarate (Symbicort 80/4.5mcg -) 1 puff IH DAILY [facility] Last Admin: 05/16/17 09:19 Dose: 1 inh Clonazepam (Klonopin -) 1 mg PO BID [facility] Last Admin: 05/16/17 09:17 Dose: 1 mg Divalproex Sodium (Depakote -) 750 mg PO HS [facility] Last Admin: 05/15/17 23:39 Dose: 750 mg Docusate Sodium (Colace -) 300 mg PO HS [facility] Last Admin: 05/15/17 23:37 Dose: 300 mg Ferrous Sulfate (Feosol -) 325 mg PO DAILY [facility] Last Admin: 05/16/17 09:17 Dose: 325 mg Fluoxetine HCl (Prozac -) 40 mg PO DAILY [facility] Last Admin: 05/16/17 09:17 Dose: 40 mg Gabapentin (Neurontin -) 300 mg PO TID [facility] Last Admin: 05/16/17 07:11 Dose: 300 mg Insulin Aspart (Novolog Vial Sliding Scale -) 1 vial SQ ACHS [facility] PRN Reason: Protocol Last Admin: 05/16/17 07:10 Dose: Not Given Levothyroxine Sodium (Synthroid -) 50 mcg PO DAILY@0700 [facility] Last Admin: 05/16/17 07:11 Dose: 50 mcg Meclizine HCl (Antivert -) 12.5 mg PO Q6H PRN PRN Reason: VERTIGO Metoprolol Succinate (Toprol Xl -) 12.5 mg PO BID [facility] Last Admin: 05/16/17 09:19 Dose: 12.5 mg Non-Formulary Medication (Bupropion Hcl [Bupropion Hcl Sr]) 400 mg PO DAILY [facility] Non-Formulary Medication (Tizanidine Hcl [Zanaflex]) 2 mg PO TID PRN PRN Reason: MUSCLE SPASMS Oxycodone HCl (Roxicodone -) 10 mg PO Q6H PRN PRN Reason: PAIN Pantoprazole Sodium (Protonix -) 40 mg PO DAILY [facility] Last Admin: 05/16/17 09:18 Dose: 40 mg Polyethylene Glycol (Miralax (For Daily Use) -) 17 gm PO DAILY [facility] Last Admin: 05/15/17 09:29 Dose: Not Given Quetiapine Fumarate (Seroquel -) 300 mg PO [facility] Last Admin: 05/15/17 23:37 Dose: 300 mg Senna (Senna -) 2 tab PO [facility] Last Admin: 05/15/17 23:36 Dose: 2 tab - Objective Vital Signs: Vital Signs Temperature 97.4 F L 05/16/17 06:00 Pulse Rate 97 H 05/16/17 06:00 Respiratory Rate 18 05/16/17 06:00 Blood Pressure 120/65 05/16/17 06:00 O2 Sat by Pulse Oximetry (%) 98 05/15/17 21:00 Constitutional: Yes: No Distress, Calm Neck: Yes: Supple Cardiovascular: Yes: Regular Rate and Rhythm, Varicosities Respiratory: Yes: Diminished Gastrointestinal: Yes: Normal Bowel Sounds, Soft, Abdomen, Obese Edema: No Labs: CBC, BMP 05/15/17 10:50 05/15/17 10:50 INR, PTT INR 1.10 (0.82-1.09) 05/13/17 06:00 - ....Imaging Ultrasound: Report Reviewed (Neg DVT bilaterally) Problem List - Problems (1) Pelvic fracture Code(s): S32.9XXA - FRACTURE OF UNSP PARTS OF LUMBOSACRAL SPINE AND PELVIS, INIT Qualifiers: Encounter type: subsequent encounter Pelvic bone location: acetabulum Sublocation of acetabulum: posterior wall Fracture type: closed Fracture alignment: nondisplaced Laterality: right (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 Code(s): Z79.01 - HIGH MAN (CURRENT) USE OF ANTICOAGULANTS (3) Bipolar disorder Code(s): F31.9 - BIPOLAR DISORDER, UNSPECIFIED Qualifiers: Active/Remission status: in full remission Most recent bipolar episode type : most recent episode depressed (4) 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 Code(s): E11.9 - TYPE 2 DIABETES MELLITUS WITHOUT COMPLICATIONS Qualifiers: 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 type: type 2 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 complication status: without complication (5) HTN (hypertension) Code(s): I10 - ESSENTIAL (PRIMARY) HYPERTENSION Qualifiers: Hypertension type: essential hypertension Qualified Code(s): I10 - Essential (primary) hypertension (6) Hyperlipidemia Code(s): E78.5 - HYPERLIPIDEMIA, UNSPECIFIED Qualifiers: Hyperlipidemia type: pure hypercholesterolemia Qualified Code(s): E78.00 - Pure hypercholesterolemia, unspecified; E78.0 - Pure hypercholesterolemia (7) ARVIND treated with BiPAP Code(s): G47.33 - OBSTRUCTIVE SLEEP APNEA (ADULT) (PEDIATRIC) (8) Auditory hallucinations Code(s): R44.0 - AUDITORY HALLUCINATIONS Assessment/Plan Cat Scan: Report Reviewed, Image Reviewed (Nondispaced acetabulum fracture) 1. Non-displaced Fracture of right acetabulum and R inferior pubic Ramus 2. CAD h/o [place] 3. Hypothyroidism 4. Polysubstance abuse, Bipolar disorder and schizophrenia 5. COPD 6. CVA/TIA 7. Migraine headache, auditory hallucinations PLAN: 1. Non-surgical management as per Orthopedics 2. Continue Metoprolol ER 12.5 mg PO BID and Atorvastatin 20 mg qhs. Lasix held 3. Recommend decrease Eliquis 2.5 bid for DVT prophylaxis dose 4. Continue analgesics as needed
[2017-05-16] MEDS: oxyCODONE HCL 5 MG TABLET PO PRN ×2 (15:59→22:28)
--- NOTE | 2017-05-16 17:50 | PN ---
Teaching Attending Note Name of Resident: Darrin Powell ATTENDING PHYSICIAN STATEMENT I saw and evaluated the patient. I reviewed the resident's note and discussed the case with the resident. I agree with the resident's findings and plan as documented. SUBJECTIVE: No fever or chills. still has auditory hallucinations that ask her to kill herself via strangulation. OBJECTIVE: NAD , awake , alert , and cooperative CV: RRR Lungs : CTAB Abd: soft, NT, ND, NL BS. Ext : no edema , TTP over R groin . decreased senation to light touch in R LE . ASSESSMENT AND PLAN: 51 y/o lady with h/o CAD, s/p [place], CVA/TIA, asthma, schizophrenia, HTN, and other medical problems who presented after a mechanical fall and was found to have R pelvic Fx 1- R acetabular Fx and R inferior pubic Ramus Fx. - No surgical intervention - cont pain control - PT 2- Auditory hallucinations : concern for SI - 1:1 observation - Psych was asked to reevaluate fpor inpt psych admisison - cont bupropion - cont seroquel - cont prozac and Klonopin 3- h/o cad and OR : - cont BB - not on ASA 4-h/o CVA: no h/o of Afib 5- Recent DVT as outpt 2 months ago, increase eliquis to 5 BID HLOC , pending dc planning
--- NOTE | 2017-05-16 18:43 | CON.PSY ---
Psychiatry Consult Chief Complaint: Asked to see Ms. Villela for suicidal ideation History of Present Problem: Patient was seen today. She was found lying in bed with a 1 to1 direct observation at her bedside. She was having visible spasm and she was screaming as they occur. Patient states that she does not want to hurt herself and has no plan. At the same time,she says that she wanted to strangle herself because that is the only means to do it as she is too weak and she cannot walk. Patient states that she had been through 'so much' throughout her life- childhood trauma, back surgery etc and she survived without wanting to hurt herself.. With all that has happened to her she states that she did not entertain self harm. She wants her pain to be controlled and she was reassured that the pain medication was changed today and she should be feeling better soon. Also, she did not get wellbutrin as it was non formulary, the [place] version,, Today, wellbutrin XL was ordered instead MS Patient is awake, alert and fully oriented x 4. + Muscle spasm noted. Speech is intact, logical and coherent. Mood is depressed. Thought process/ content- NL No psychoses elicited A/P Although she denies feeling helpless and hopeless, she did entertain a plan to strangle herself. This constitutes a plan. During the encounter she seemed to change her mind very often from yes I want to end it all to No, I am not going to act on it Based on these observations, I would lean on the side of safety and deemed her suicidal at this time. - Current Medications Current Medications: Active Medications Albuterol Sulfate (Ventolin Hfa Inhaler -) 2 puff IH Q4H [facility] Last Admin: 05/16/17 16:04 Dose: Not Given Albuterol/Ipratropium (Duoneb -) 1 amp NEB Q4H PRN PRN Reason: SHORTNESS OF BREATH Apixaban (Eliquis -) 2.5 mg PO BID [facility] Atorvastatin Calcium (Lipitor -) 20 mg PO HS [facility] Last Admin: 05/15/17 23:36 Dose: 20 mg Benztropine Mesylate (Cogentin -) 1 mg PO DAILY [facility] Last Admin: 05/16/17 09:20 Dose: 1 mg Budesonide/Formoterol Fumarate (Symbicort 80/4.5mcg -) 1 puff IH DAILY [facility] Last Admin: 05/16/17 09:19 Dose: 1 inh Bupropion HCl (Wellbutrin Xl -) 300 mg PO DAILY [facility] Clonazepam (Klonopin -) 1 mg PO BID [facility] Last Admin: 05/16/17 09:17 Dose: 1 mg Divalproex Sodium (Depakote -) 750 mg PO HS [facility] Last Admin: 05/15/17 23:39 Dose: 750 mg Docusate Sodium (Colace -) 300 mg PO HS [facility] Last Admin: 05/15/17 23:37 Dose: 300 mg Ferrous Sulfate (Feosol -) 325 mg PO DAILY [facility] Last Admin: 05/16/17 09:17 Dose: 325 mg Fluoxetine HCl (Prozac -) 40 mg PO DAILY [facility] Last Admin: 05/16/17 09:17 Dose: 40 mg Gabapentin (Neurontin -) 300 mg PO TID [facility] Last Admin: 05/16/17 15:58 Dose: 300 mg Insulin Aspart (Novolog Vial Sliding Scale -) 1 vial SQ ACHS [facility] PRN Reason: Protocol Last Admin: 05/16/17 15:18 Dose: Not Given Levothyroxine Sodium (Synthroid -) 50 mcg PO DAILY@0700 [facility] Last Admin: 05/16/17 07:11 Dose: 50 mcg Meclizine HCl (Antivert -) 12.5 mg PO Q6H PRN PRN Reason: VERTIGO Metoprolol Succinate (Toprol Xl -) 12.5 mg PO BID [facility] Last Admin: 05/16/17 09:19 Dose: 12.5 mg Non-Formulary Medication (Bupropion Hcl [Bupropion Hcl Sr]) 400 mg PO DAILY [facility] Non-Formulary Medication (Tizanidine Hcl [Zanaflex]) 2 mg PO TID PRN PRN Reason: MUSCLE SPASMS Oxycodone HCl (Roxicodone -) 10 mg PO Q6H PRN PRN Reason: PAIN Last Admin: 05/16/17 15:59 Dose: 10 mg Pantoprazole Sodium (Protonix -) 40 mg PO DAILY [facility] Last Admin: 05/16/17 09:18 Dose: 40 mg Polyethylene Glycol (Miralax (For Daily Use) -) 17 gm PO DAILY [facility] Last Admin: 05/16/17 10:00 Dose: Not Given Quetiapine Fumarate (Seroquel -) 300 mg PO [facility] Last Admin: 05/15/17 23:37 Dose: 300 mg Senna (Senna -) 2 tab PO [facility] Last Admin: 05/15/17 23:36 Dose: 2 tab - Allergies Allergies: Allergies Allergy/AdvReac Type Severity Reaction Status Date / Time hydromorphone HCl Allergy Intermediate Itching Verified 05/08/17 20:02 [From Dilaudid] amoxicillin [Amoxicillin] Allergy Verified 05/08/17 20:02 ampicillin Allergy Verified 05/08/17 20:02 aspirin Allergy Difficulty Verified 05/08/17 20:02 Breathing cranberry Allergy Rash Verified 05/08/17 20:02 doxycycline Allergy Rash Verified 05/08/17 20:02 Fish Containing Products Allergy Difficulty Verified 05/08/17 20:02 Breathing haloperidol [From Haldol] Allergy Rash Verified 05/08/17 20:02 haloperidol lactate Allergy Rash Verified 05/08/17 20:02 [From Haldol] ibuprofen [From Motrin] Allergy Difficulty Verified 05/08/17 20:02 Breathing ketorolac tromethamine Allergy Rash Verified 05/08/17 20:02 [From Toradol] levofloxacin [From Levaquin] Allergy Rash Verified 05/08/17 20:02 milk Allergy Difficulty Verified 05/08/17 20:02 Breathing oxycodone HCl [From Percocet] Allergy Rash Verified 05/08/17 20:02 Penicillins Allergy Difficulty Verified 05/08/17 20:02 Breathing sulfamethoxazole Allergy Rash Verified 05/08/17 20:02 [From Bactrim] trimethoprim [From Bactrim] Allergy Verified 05/08/17 20:02 warfarin sodium Allergy Verified 05/08/17 20:02 [From Coumadin] Gravy Allergy Unknown Uncoded 05/08/17 20:02 Cranberry/Cranberry juice Allergy Uncoded 05/08/17 20:02 raw tomato Allergy Uncoded 05/13/17 13:04
[2017-05-16] MEDS ORDERED: BACLOFEN 10 MG TABLET (FP) PO ONE (20:00)
[2017-05-16] MEDS: SENNOSIDES 8.6MG TABLET (FP) PO SCH (21:39)
[2017-05-16] MEDS: ATORVASTATIN CA 20 MG TABLET (FP) PO SCH (21:40)
[2017-05-16] MEDS: DOCUSATE SODIUM 100 MG CAPSULE (FP) PO SCH (21:40)
[2017-05-16] MEDS: QUEtiapine FUMARATE 100 MG TABLET (FP) PO SCH (21:41)
[2017-05-16] MEDS: DIVALPROEX SODIUM 250 MG TABLET E.C. (FP) PO SCH (21:41)
[2017-05-16] MEDS ORDERED: APIXABAN 5 MG TABLET PO SCH (22:00)
[2017-05-17] MEDS: ALBUTEROL SO4 18 GM HFA INHALER IH SCH ×7 (00:10→23:37)
[2017-05-17] MEDS: oxyCODONE HCL 5 MG TABLET PO PRN ×3 (06:20→18:26)
[2017-05-17] MEDS: LEVOTHYROXINE NA 100 MCG TABLET (FP) PO SCH (06:21)
[2017-05-17] MEDS: INSULIN SLIDING SCALE (NOVOLOG) 1 VIAL SQ SCH ×4 (06:21→21:10)
[2017-05-17] MEDS: GABAPENTIN 300 MG CAPSULE (FP) PO SCH ×3 (06:21→21:12)
--- NOTE | 2017-05-17 08:51 | PN ---
Physical Exam: SUBJECTIVE: Patient seen and examined by me this AM - No major events overnight. Still on 1to1. 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 States she could "strangle herself with her tubing". Concurs with plan for transfer to in psych. Pt will require 2PC. - Pt still complaining of R hip pain, muscle spasms. Started on baclofen with some improvement. -Pt more agreeable with staff this AM. Denies any hallucinations overnight. Sleep well. Denies any fevers/chills, CP, SOB, N/V, abdominal pain, LE edema, new neuro symptoms. States sensation returning in R leg. OBJECTIVE: Vital Signs Intake & Output 05/14/17 05/15/17 05/16/17 05/17/17 23:59 23:59 23:59 23:59 Intake Total 2618 1727 700 Balance 2618 1727 700 Period Temp Pulse Resp BP Sys/Schultz Pulse Ox Last 24 Hr 97.7 F-98.9 F 86-100 18-18 108-123/59-66 97-98 GENERAL: A&Ox3. More alert this AM, interactive with examiner HEAD: NCAT EYES: PERRL, extraocular movements intact, sclera anicteric, conjunctiva clear. No ptosis. ENT: Ears normal, nares patent, oropharynx clear without exudates, moist mucous membranes. NECK: Trachea midline, No JVD or thyromegaly, supple. LUNGS: Decreased breath sounds at bases. No wheezes, no crackles, no accessory muscle use. HEART: Regular rate and rhythm, S1, S2 without murmur, rub or gallop. ABDOMEN: Globular abdomen, char filter tank tender head to palpation in RLQ. Normoactive bowel sounds, guarding w/ palpation in RLQ, no rebound, no hepatosplenomegaly, no masses. Upper EXTREMITIES: 2+ pulses, warm, well-perfused, no edema. Lower extremities: 2+ pulses BL DP, PT. wwp. No edema or lesions. Tolerating passive leg manipulation of R leg w/ some pain. Distended superficial varicose veins inferior to L popliteal fossa. Tender to palpation at R hip, RLQ still. NEUROLOGICAL: Cranial nerves II through XII grossly intact. Normal speech, gait not observed. 5/5 strength with L arm flexion/extension at elbow. 5/5 strength in R arm flexion/extension. 2+ R biceps reflex, 2+ left biceps reflex. Decreased sensation to light touch on R arm in all dermatomes. Normal sensation on L. 5/5 strength throughout in L leg. 3/5 strength on dorsi/plantarflexion of R foot , 2/5 flex/extension at R knee, limited by pain. Endorses sensation to light touch in all dermatomes in R leg, diminished compared to L. Preserved sensation to light touch on L. 2+ patellar reflexes BL. PSYCH: Constricted affect, appropriate. Denies any delusions. Denies any auditory/visual hallucinations overnight. Good insight, poor judgment. SKIN: Warm, dry, normal turgor, no rashes or lesions noted Laboratory Results - last 24 hr CBC, BMP 05/15/17 10:50 05/15/17 10:50 05/16/17 05/17/17 20:47 06:19 POC Glucometer 131 88 Active Medications Generic Name Dose Route Start Last Admin Trade Name Freq PRN Reason Stop Dose Admin Albuterol Sulfate 2 puff 05/13/17 07:15 05/17/17 06:22 Ventolin Hfa Inhaler - IH 2 puff Q4H [facility] Administration Albuterol/Ipratropium 1 amp 05/13/17 06:29 Duoneb - NEB Q4H PRN SHORTNESS OF BREATH Apixaban 2.5 mg 05/16/17 22:00 05/16/17 21:41 Eliquis - PO 2.5 mg BID [facility] Administration Atorvastatin Calcium 20 mg 05/13/17 22:00 05/16/17 21:40 Lipitor - PO 20 mg HS [facility] Administration Benztropine Mesylate 1 mg 05/14/17 10:00 05/16/17 09:20 Cogentin - PO 1 mg DAILY [facility] Administration Budesonide/Formoterol Fumarate 1 puff 05/13/17 10:00 05/16/17 09:19 Symbicort 80/4.5mcg - IH 1 inh DAILY [facility] Administration Bupropion HCl 300 mg 05/17/17 10:00 Wellbutrin Xl - PO DAILY [facility] Clonazepam 1 mg 05/14/17 10:00 05/16/17 21:40 Klonopin - PO 1 mg BID [facility] Administration Divalproex Sodium 750 mg 05/14/17 22:00 05/16/17 21:41 Depakote - PO 750 mg HS [facility] Administration Docusate Sodium 300 mg 05/13/17 22:00 05/16/17 21:40 Colace - PO 300 mg HS [facility] Administration Ferrous Sulfate 325 mg 05/13/17 10:00 05/16/17 09:17 Feosol - PO 325 mg DAILY [facility] Administration Fluoxetine HCl 40 mg 05/14/17 10:00 05/16/17 09:17 Prozac - PO 40 mg DAILY [facility] Administration Gabapentin 300 mg 05/14/17 14:00 05/17/17 06:21 Neurontin - PO 300 mg TID [facility] Administration Insulin Aspart 1 vial 05/13/17 07:00 05/17/17 06:21 Novolog Vial Sliding Scale - SQ Not Given ACHS [facility] Protocol Levothyroxine Sodium 50 mcg 05/14/17 07:00 05/17/17 06:21 Synthroid - PO 50 mcg DAILY@0700 [facility] Administration Meclizine HCl 12.5 mg 05/13/17 02:46 Antivert - PO Q6H PRN [facility] Metoprolol Succinate 12.5 mg 05/13/17 22:00 05/16/17 21:50 Toprol Xl - PO 12.5 mg BID [facility] Administration Non-Formulary Medication 2 mg 05/14/17 07:27 Tizanidine Hcl [Zanaflex] PO TID PRN MUSCLE SPASMS Oxycodone HCl 10 mg 05/15/17 19:18 05/17/17 06:20 Roxicodone - PO 10 mg Q6H PRN Administration PAIN Pantoprazole Sodium 40 mg 05/13/17 10:00 05/16/17 09:18 Protonix - PO 40 mg DAILY [facility] Administration Polyethylene Glycol 17 gm 05/14/17 10:00 05/16/17 10:00 Miralax (For Daily Use) - PO Not Given DAILY [facility] Quetiapine Fumarate 300 mg 05/15/17 22:00 05/16/17 21:41 Seroquel - PO 300 mg HS [facility] Administration Senna 2 tab 05/13/17 22:00 05/16/17 21:39 Senna - PO 2 tab HS [facility] Administration No micro EKG: NSR, rate of 88, NAD, QTC 469 Imaging: Pelvic CT 05/12 - R acetabular fx on CT R Hip XR 05/12 - Finding suggestive of subtle acetabular fx. Non-con head CT 05/13 - Mild volume loss and mild to moderate ventriculomegaly that has increased since prior examination dated 01/25/2014. Neurology consult is suggested. No mass lesion, gross acute infarct or intracranial hemorrhage are identified Venous Duplex 05/15 - Impression: No DVT is identified involving either leg. Please see above. An approximately 4.4 x 2 x 1.3 cm right popliteal fossa cyst is noted. ASSESSMENT/PLAN: Pt is a 51 yo F with pmh of CAD, AK, CVA, Asthma, COPD, Bipolar disorder, HTN, HLD, Hypothyroidism, DM2, cocaine abuse, PUD, PTSD presented late night 05/12 w / severe constant hip pain with radiation to R foot after mechanical fall at home due to episode of vertigo (no LOC, chronic vertigo). Pt continued to endorse command auditory hallucinations last night w/ psychological stress evaluator w/ active plan. Recommend transfer to inpt psych facility, 2PC completed today. Still with pain , muscle spasms in R hip. #R acetabular fracture - Non-displaced R posterior acetabular fx on 05/12 CT scan of pelvis - Orth consulted initially. Recommend to non-surgical intervention, Limited weight-bearing of R LE - IVFs - oxycodone 10mg PO q6h PRN, acetaminophen for pain - Started on baclofen 10mg TID today. Hesitant to give muscle relaxants, as pt already very sedated. - PT following #Auditory command hallucinations/suicidality - Seen by psychological stress evaluator Candy Valverde, endorsing suicidality/command auditory hallucinations w/ active plan. Transfer to inpt psych facility - 2PC completed today. Will file for transfer to [facility] inpt psych facility - Cont all home psych meds - Cont 1to1 #Mechanical fall/chronic vertigo - 05/[address] negative for acute bleed, mass or midline shift. Moderate ventriculomegaly/volume loss - Meclizine 12.5 q6h for vertigo - Fall risk #Bipolar disorder/PTSD/psychosis - Depakote 750 qHs - Klonopin 1mg PO BID - Seroquel 300 qHs - Bupropion 300mg (400 mg non formulary) #COPD - Ventolin 1 puff q4h prn - Symbicort 1 puff po daily #HTN -Toprol XL 12.5 BID - Monitor BP #CAD - Cardiology consulted. Recs appreciated. - Eliquis 5mg for hx of DVTs (2 month ago, most recent) and CVA - Nitroglycerin 0.4mg SL PRN - Toprol XL 12.5 BID - Atovastatin 20mg po qHs #Hypothyroidism - TSH 1.55 -Synthroid 50mcg daily #DM2 - BG controlled on admission -ISS -BGM ACHS - Gabapentin 300mg TID for neuropathy per home med list #Depression - Prozac 40 mg daily for now #PPX - Eliquis 5mg BID - Protonix 40mg daily #FEN F: PO hydration E: Daily BMPs, no abs N: Diabetic diet Dispo: Pending placement for inpt psych. 2PC completed. Plan discussed with attending, Dr. Edwin Powell, PGY1 Visit type - Emergency Visit Emergency Visit: Yes ED Registration Date: 05/12/17 Care time: The patient presented to the Emergency Department on the above date and was hospitalized for further evaluation of their emergent condition. - New Patient This patient is new to me today: No - Critical Care Critical Care patient: No
[2017-05-17] MEDS ORDERED: PT OWN MED DRAWER 7, Y5N ONE ×2 (09:22→18:59)
[2017-05-17] MEDS: BUDESONIDE/FORMETEROL FUMARATE 80/4.5 mcg INHALER IH SCH (09:24)
[2017-05-17] MEDS: POLYETHYLENE GLYCOL 3350 119 GM BTL PO SCH ×2 (09:24→13:58)
[2017-05-17] MEDS: FERROUS SO4 325 MG TABLET (FP) PO SCH (09:26)
[2017-05-17] MEDS: clonazePAM 0.5 MG TABLET PO SCH ×2 (09:26→21:15)
[2017-05-17] MEDS: FLUoxetine HCL 20 MG CAPSULE (FP) PO SCH (09:26)
[2017-05-17] MEDS: PANTOPRAZOLE 40 MG TABLET (FP) PO SCH (09:29)
[2017-05-17] MEDS: METOPROLOL SUCCINATE 25 MG TAB.SR.24H (FP) PO SCH ×2 (09:29→21:12)
[2017-05-17] MEDS: APIXABAN 2.5 MG TABLET PO SCH (09:31)
[2017-05-17] MEDS: BENZTROPINE MESYLATE 0.5 MG TABLET (FP) PO SCH (09:31)
--- NOTE | 2017-05-17 14:20 | PN ---
Progress Note, Physician History of Present Illness: Right thigh muscle spasms. Suicidal ideations. - Current Medication List Current Medications: Active Medications Albuterol Sulfate (Ventolin Hfa Inhaler -) 2 puff IH Q4H [facility] Last Admin: 05/17/17 11:28 Dose: Not Given Albuterol/Ipratropium (Duoneb -) 1 amp NEB Q4H PRN PRN Reason: SHORTNESS OF BREATH Apixaban (Eliquis -) 2.5 mg PO BID [facility] Last Admin: 05/17/17 09:31 Dose: 2.5 mg Atorvastatin Calcium (Lipitor -) 20 mg PO HS [facility] Last Admin: 05/16/17 21:40 Dose: 20 mg Benztropine Mesylate (Cogentin -) 1 mg PO DAILY [facility] Last Admin: 05/17/17 09:31 Dose: 1 mg Budesonide/Formoterol Fumarate (Symbicort 80/4.5mcg -) 1 puff IH DAILY [facility] Last Admin: 05/17/17 09:24 Dose: 1 inh Bupropion HCl (Wellbutrin Xl -) 300 mg PO DAILY [facility] Last Admin: 05/17/17 09:31 Dose: 300 mg Clonazepam (Klonopin -) 1 mg PO BID [facility] Last Admin: 05/17/17 09:26 Dose: 1 mg Divalproex Sodium (Depakote -) 750 mg PO HS [facility] Last Admin: 05/16/17 21:41 Dose: 750 mg Docusate Sodium (Colace -) 300 mg PO HS [facility] Last Admin: 05/16/17 21:40 Dose: 300 mg Ferrous Sulfate (Feosol -) 325 mg PO DAILY [facility] Last Admin: 05/17/17 09:26 Dose: 325 mg Fluoxetine HCl (Prozac -) 40 mg PO DAILY [facility] Last Admin: 05/17/17 09:26 Dose: 40 mg Gabapentin (Neurontin -) 300 mg PO TID [facility] Last Admin: 05/17/17 13:58 Dose: 300 mg Insulin Aspart (Novolog Vial Sliding Scale -) 1 vial SQ ACHS [facility] PRN Reason: Protocol Last Admin: 05/17/17 11:27 Dose: Not Given Levothyroxine Sodium (Synthroid -) 50 mcg PO DAILY@0700 [facility] Last Admin: 05/17/17 06:21 Dose: 50 mcg Meclizine HCl (Antivert -) 12.5 mg PO Q6H PRN PRN Reason: VERTIGO Metoprolol Succinate (Toprol Xl -) 12.5 mg PO BID [facility] Last Admin: 05/17/17 09:29 Dose: 12.5 mg Oxycodone HCl (Roxicodone -) 10 mg PO Q6H PRN PRN Reason: PAIN Last Admin: 05/17/17 12:08 Dose: 10 mg Pantoprazole Sodium (Protonix -) 40 mg PO DAILY [facility] Last Admin: 05/17/17 09:29 Dose: 40 mg Polyethylene Glycol (Miralax (For Daily Use) -) 17 gm PO DAILY [facility] Last Admin: 05/17/17 13:58 Dose: Not Given Quetiapine Fumarate (Seroquel -) 300 mg PO [facility] Last Admin: 05/16/17 21:41 Dose: 300 mg Senna (Senna -) 2 tab PO [facility] Last Admin: 05/16/17 21:39 Dose: 2 tab - Objective Vital Signs: Vital Signs Temperature 98.2 F 05/17/17 09:00 Pulse Rate 91 H 05/17/17 09:00 Respiratory Rate 18 05/17/17 09:00 Blood Pressure 113/66 05/17/17 09:00 O2 Sat by Pulse Oximetry (%) 96 05/17/17 09:00 Constitutional: Yes: No Distress, Calm Neck: Yes: Supple Cardiovascular: Yes: Regular Rate and Rhythm Respiratory: Yes: Regular, Diminished Gastrointestinal: Yes: Normal Bowel Sounds, Soft, Abdomen, Obese Edema: No Labs: CBC, BMP 05/15/17 10:50 05/15/17 10:50 INR, PTT INR 1.10 (0.82-1.09) 05/13/17 06:00 Problem List - Problems (1) Pelvic fracture Code(s): S32.9XXA - FRACTURE OF UNSP PARTS OF LUMBOSACRAL SPINE AND PELVIS, INIT Qualifiers: Encounter type: subsequent encounter Pelvic bone location: acetabulum Sublocation of acetabulum: posterior wall Fracture type: closed Fracture alignment: nondisplaced Laterality: right (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 Code(s): Z79.01 - DETENTION (CURRENT) USE OF ANTICOAGULANTS (3) Bipolar disorder Code(s): F31.9 - BIPOLAR DISORDER, UNSPECIFIED Qualifiers: Active/Remission status: in full remission Most recent bipolar episode type : most recent episode depressed (4) 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 Code(s): E11.9 - TYPE 2 DIABETES MELLITUS WITHOUT COMPLICATIONS Qualifiers: 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 type: type 2 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 complication status: without complication (5) HTN (hypertension) Code(s): I10 - ESSENTIAL (PRIMARY) HYPERTENSION Qualifiers: Hypertension type: essential hypertension Qualified Code(s): I10 - Essential (primary) hypertension (6) Hyperlipidemia Code(s): E78.5 - HYPERLIPIDEMIA, UNSPECIFIED Qualifiers: Hyperlipidemia type: pure hypercholesterolemia Qualified Code(s): E78.00 - Pure hypercholesterolemia, unspecified; E78.0 - Pure hypercholesterolemia (7) ARVIND treated with BiPAP Code(s): G47.33 - OBSTRUCTIVE SLEEP APNEA (ADULT) (PEDIATRIC) (8) Auditory hallucinations Code(s): R44.0 - AUDITORY HALLUCINATIONS (9) Suicidal ideations Code(s): R45.851 - SUICIDAL IDEATIONS Assessment/Plan Cat Scan: Report Reviewed, Image Reviewed (Nondispaced acetabulum fracture) 1. Non-displaced Fracture of right acetabulum and R inferior pubic Ramus 2. CAD h/o PR 3. Hypothyroidism 4. Polysubstance abuse, Bipolar disorder and schizophrenia 5. COPD 6. CVA/TIA 7. Migraine headache, auditory hallucinations, suicidal ideations PLAN: 1. Non-surgical management as per Orthopedics 2. Continue Metoprolol ER 12.5 mg PO BID and Atorvastatin 20 mg qhs. Lasix held 3. Increased Eliquis 5 bid as patient currently in 3rd month of acute treatment 4. Continue analgesics as needed 5. Currently on 1:1 observation, plan for transfer to inpatient psych facility
[2017-05-17] MEDS ORDERED: APIXABAN 2.5 MG TABLET PO SCH (14:23)
--- NOTE | 2017-05-17 19:25 | PN ---
Teaching Attending Note Name of Resident: Darrin Powell ATTENDING PHYSICIAN STATEMENT I saw and evaluated the patient. I reviewed the resident's note and discussed the case with the resident. I agree with the resident's findings and plan as documented. SUBJECTIVE: no fever or chills. today she denies any hallucination OBJECTIVE: NAD , awake , alert , and cooperative CV: RRR Lungs : CTAB Abd: soft, NT, ND, NL BS. Ext : no edema , TTP over R groin . decreased senation to light touch in R LE . ASSESSMENT AND PLAN: 51 y/o lady with h/o CAD, s/p IN, CVA/TIA, asthma, schizophrenia, HTN, and other medical problems who presented after a mechanical fall and was found to have R pelvic Fx 1- R acetabular Fx and R inferior pubic Ramus Fx. - No surgical intervention - cont pain control - PT 2- Auditory hallucinations with suicidality - 1:1 observation -2PC commitment for inpt psych - cont bupropion - cont seroquel - cont prozac and Klonopin 3- h/o cad and IN : - cont BB - not on ASA 4-h/o CVA: no h/o of Afib 5- Recent DVT as outpt 2 months ago, cont eliquis 5 BID pending psych placement
[2017-05-17] MEDS: QUEtiapine FUMARATE 100 MG TABLET (FP) PO SCH (21:11)
[2017-05-17] MEDS: SENNOSIDES 8.6MG TABLET (FP) PO SCH (21:11)
[2017-05-17] MEDS: DIVALPROEX SODIUM 250 MG TABLET E.C. (FP) PO SCH (21:12)
[2017-05-17] MEDS: BACLOFEN 10 MG TABLET (FP) PO SCH (21:12)
[2017-05-17] MEDS: ATORVASTATIN CA 20 MG TABLET (FP) PO SCH (21:14)
[2017-05-17] MEDS: DOCUSATE SODIUM 100 MG CAPSULE (FP) PO SCH (21:15)
[2017-05-18] MEDS: ALBUTEROL SO4 18 GM HFA INHALER IH SCH ×5 (05:46→22:33)
[2017-05-18] MEDS: oxyCODONE HCL 5 MG TABLET PO PRN ×3 (05:50→19:53)
[2017-05-18] MEDS: BACLOFEN 10 MG TABLET (FP) PO SCH ×3 (05:52→23:33)
[2017-05-18] MEDS: GABAPENTIN 300 MG CAPSULE (FP) PO SCH ×3 (05:52→23:34)
[2017-05-18] MEDS: INSULIN SLIDING SCALE (NOVOLOG) 1 VIAL SQ SCH ×4 (06:00→23:35)
[2017-05-18] MEDS: LEVOTHYROXINE NA 100 MCG TABLET (FP) PO SCH (06:01)
[2017-05-18] MEDS ORDERED: PT OWN MED DRAWER 7, Y5N ONE ×2 (09:46→22:42)
[2017-05-18] MEDS: clonazePAM 0.5 MG TABLET PO SCH ×2 (09:59→23:33)
[2017-05-18] MEDS: FLUoxetine HCL 20 MG CAPSULE (FP) PO SCH (09:59)
[2017-05-18] MEDS: FERROUS SO4 325 MG TABLET (FP) PO SCH (09:59)
[2017-05-18] MEDS: PANTOPRAZOLE 40 MG TABLET (FP) PO SCH (09:59)
[2017-05-18] MEDS: METOPROLOL SUCCINATE 25 MG TAB.SR.24H (FP) PO SCH ×2 (09:59→23:34)
[2017-05-18] MEDS: POLYETHYLENE GLYCOL 3350 119 GM BTL PO SCH (10:00)
[2017-05-18] MEDS: APIXABAN 5 MG TABLET PO SCH ×2 (10:01→23:32)
[2017-05-18] MEDS: BENZTROPINE MESYLATE 0.5 MG TABLET (FP) PO SCH (10:01)
[2017-05-18] MEDS: BUDESONIDE/FORMETEROL FUMARATE 80/4.5 mcg INHALER IH SCH (10:01)
--- NOTE | 2017-05-18 12:30 | PN ---
Progress Note, Physician Chief Complaint: Events noted Complains of lower extremity pain Currently 1:1 for suicidal ideation History of Present Illness: Patient was seen and examined. Awake and alert. Chart was reviewed Denies chest pain, SOB or palpitations Hip and back pain - Current Medication List Current Medications: Active Medications Albuterol Sulfate (Ventolin Hfa Inhaler -) 2 puff IH Q4H [facility] Last Admin: 05/18/17 11:49 Dose: Not Given Apixaban (Eliquis -) 5 mg PO BID [facility] Last Admin: 05/18/17 10:01 Dose: 5 mg Atorvastatin Calcium (Lipitor -) 20 mg PO HS [facility] Last Admin: 05/17/17 21:14 Dose: 20 mg Baclofen (Lioresal -) 10 mg PO TID [facility] Last Admin: 05/18/17 05:52 Dose: 10 mg Benztropine Mesylate (Cogentin -) 1 mg PO DAILY [facility] Last Admin: 05/18/17 10:01 Dose: 1 mg Budesonide/Formoterol Fumarate (Symbicort 80/4.5mcg -) 1 puff IH DAILY [facility] Last Admin: 05/18/17 10:01 Dose: 1 inh Bupropion HCl (Wellbutrin Xl -) 300 mg PO DAILY [facility] Last Admin: 05/18/17 10:00 Dose: 300 mg Clonazepam (Klonopin -) 1 mg PO BID [facility] Last Admin: 05/18/17 09:59 Dose: 1 mg Divalproex Sodium (Depakote -) 750 mg PO HS [facility] Last Admin: 05/17/17 21:12 Dose: 750 mg Docusate Sodium (Colace -) 300 mg PO HS [facility] Last Admin: 05/17/17 21:15 Dose: 300 mg Ferrous Sulfate (Feosol -) 325 mg PO DAILY [facility] Last Admin: 05/18/17 09:59 Dose: 325 mg Fluoxetine HCl (Prozac -) 40 mg PO DAILY [facility] Last Admin: 05/18/17 09:59 Dose: 40 mg Gabapentin (Neurontin -) 300 mg PO TID [facility] Last Admin: 05/18/17 05:52 Dose: 300 mg Insulin Aspart (Novolog Vial Sliding Scale -) 1 vial SQ ACHS [facility] PRN Reason: Protocol Last Admin: 05/18/17 11:11 Dose: Not Given Levothyroxine Sodium (Synthroid -) 50 mcg PO DAILY@0700 [facility] Last Admin: 05/18/17 06:01 Dose: 50 mcg Meclizine HCl (Antivert -) 12.5 mg PO Q6H PRN PRN Reason: VERTIGO Metoprolol Succinate (Toprol Xl -) 12.5 mg PO BID [facility] Last Admin: 05/18/17 09:59 Dose: 12.5 mg Oxycodone HCl (Roxicodone -) 10 mg PO Q6H PRN PRN Reason: PAIN Last Admin: 05/18/17 12:08 Dose: 10 mg Pantoprazole Sodium (Protonix -) 40 mg PO DAILY [facility] Last Admin: 05/18/17 09:59 Dose: 40 mg Polyethylene Glycol (Miralax (For Daily Use) -) 17 gm PO DAILY [facility] Last Admin: 05/18/17 10:00 Dose: Not Given Quetiapine Fumarate (Seroquel -) 300 mg PO HS [facility] Last Admin: 05/17/17 21:11 Dose: 300 mg Senna (Senna -) 2 tab PO [facility] Last Admin: 05/17/17 21:11 Dose: 2 tab - Objective Vital Signs: Vital Signs Temperature 98.0 F 05/18/17 09:00 Pulse Rate 87 05/18/17 09:00 Respiratory Rate 18 05/18/17 09:00 Blood Pressure 110/64 05/18/17 09:00 O2 Sat by Pulse Oximetry (%) 96 05/18/17 09:00 Eyes: Yes: PERRL HENT: Yes: Atraumatic Neck: Yes: Supple Cardiovascular: Yes: Regular Rate and Rhythm, S1, S2 Respiratory: Yes: CTA Bilaterally Gastrointestinal: Yes: Normal Bowel Sounds, Soft. No: Tenderness Edema: No Problem List - Problems (1) Pelvic fracture Code(s): S32.9XXA - FRACTURE OF UNSP PARTS OF LUMBOSACRAL SPINE AND PELVIS, INIT Qualifiers: Encounter type: subsequent encounter Pelvic bone location: acetabulum Sublocation of acetabulum: posterior wall Fracture type: closed Fracture alignment: nondisplaced Laterality: right (2) Weakness Code(s): R53.1 - WEAKNESS (3) Bipolar disorder Code(s): F31.9 - BIPOLAR DISORDER, UNSPECIFIED Qualifiers: Active/Remission status: in full remission Most recent bipolar episode type : most recent episode depressed (4) Diabetes type 2, controlled Code(s): E11.9 - TYPE 2 DIABETES MELLITUS WITHOUT COMPLICATIONS Qualifiers: 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 complication status: without complication 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 halfway insulin use: without halfway use Qualified Code(s): E11.9 - Type 2 diabetes mellitus without complications (5) HTN (hypertension) Code(s): I10 - ESSENTIAL (PRIMARY) HYPERTENSION Qualifiers: Hypertension type: essential hypertension Qualified Code(s): I10 - Essential (primary) hypertension (6) Hyperlipidemia Code(s): E78.5 - HYPERLIPIDEMIA, UNSPECIFIED Qualifiers: Hyperlipidemia type: pure hypercholesterolemia Qualified Code(s): E78.00 - Pure hypercholesterolemia, unspecified; E78.0 - Pure hypercholesterolemia (7) CAD (coronary artery disease) Code(s): I25.10 - ATHSCL HEART DISEASE OF [place] CORONARY ARTERY W/O ANG PCTRS (8) COPD (chronic obstructive pulmonary disease) Code(s): J44.9 - CHRONIC OBSTRUCTIVE PULMONARY DISEASE, UNSPECIFIED Assessment/Plan 1. Non-displaced Fracture of right acetabulum 2. CAD h/o [place] 3. Hypothyroidism 4. Polysubstance abuse, Bipolar disorder and schizophrenia 5. COPD 6. CVA/TIA 7. Migraine headache 8. Suicidal ideation now on 1:1 PLAN: 1. Non-surgical management as per Orthopedics 2. Continue Metoprolol ER 12.5 mg PO BID and Atorvastatin mg qhs. Lasix held 3. Maintain on Eliquis for DVT prophylaxis, but would need to clarify DVT prophylactic dose ? 2.5 mg BID 4. Continue analgesics and eventual psych inpatient care Further plans are to follow Ahmet Antunez MD
[2017-05-18 13:57] LABS: URINE APPEARANCE TURBID; URINE BILIRUBIN NEGATIVE (NEGATIVE); URINE BLOOD 2+ (NEGATIVE); URINE COLOR YELLOW; URINE GLUCOSE (UA) NEGATIVE (NEGATIVE); URINE KETONE NEGATIVE (NEGATIVE); URINE NITRITE NEGATIVE (NEGATIVE); URINE UROBILINOGEN NEGATIVE mg/dL (0.2-1.0)
[2017-05-18 14:03] LABS: URINE LEUK ESTERASE 3+ (NEGATIVE); URINE PROTEIN 1+ (NEGATIVE)
[2017-05-18 14:15] LABS: URINE BACTERIA MANY /hpf (NONE SEEN); URINE RBC 78 /hpf (0-3); URINE WBC 199 /hpf (3-5)
--- NOTE | 2017-05-18 15:39 | PN ---
Physical Exam: SUBJECTIVE: Patient seen and examined by me at bedside. Patient denies any hallucinations. Patient complains of urinary frequency and lower abdominal tenderness. Otherwise, patient denies fever, chills, nausea, vomiting, abdominal pain, chest pain, palpitations, shortness of breath. OBJECTIVE: Vital Signs Period Temp Pulse Resp BP Sys/Schultz Pulse Ox Last 24 Hr 97.5 F-98.6 F 75-94 18-20 105-133/62-86 96-96 GENERAL: The patient is awake, alert, and fully oriented, in no acute distress. EYES: PERRL, extraocular movements intact, sclera anicteric, conjunctiva clear. No ptosis. ENT: Oropharynx clear without exudates, moist mucous membranes. LUNGS: Breath sounds equal, clear to auscultation bilaterally, no wheezes, no crackles, no accessory muscle use. HEART: Regular rate and rhythm, S1, S2 without murmur, rub or gallop. ABDOMEN: Soft, obese, nondistended, tenderness upon palpation of suprapubic region. Normoactive bowel sounds EXTREMITIES: No peripheral edema. Limited ROM of right leg. NEUROLOGICAL: Cranial nerves II through XII grossly intact. Normal speech. No facial droop. Motor strength 5/5 on left LE and unable to assess on right side Laboratory Results - last 24 hr 05/17/17 05/17/17 05/18/17 16:39 21:08 05:48 POC Glucometer 150 164 106 Urine Color Urine Appearance Urine pH Ur Specific [place] Urine Protein Urine Glucose (UA) Urine Ketones Urine Blood Urine Nitrite Urine Bilirubin Urine Urobilinogen Urine WBC (Auto) Urine RBC (Auto) Ur Epithelial Cells Urine Bacteria 05/18/17 05/18/17 11:07 13:08 POC Glucometer 114 Urine Color Yellow Urine Appearance Turbid Urine pH 5.0 Ur Specific [place] 1.012 Urine Protein 1+ H Urine Glucose (UA) Negative Urine Ketones Negative Urine Blood 2+ H Urine Nitrite Negative Urine Bilirubin Negative Urine Urobilinogen Negative Urine WBC (Auto) 199 Urine RBC (Auto) 78 Ur Epithelial Cells Many Urine Bacteria Many Active Medications Generic Name Dose Route Start Last Admin Trade Name Freq PRN Reason Stop Dose Admin Albuterol Sulfate 2 puff 05/13/17 07:15 05/18/17 11:49 Ventolin Hfa Inhaler - IH Not Given Q4H [facility] Apixaban 5 mg 05/18/17 10:00 05/18/17 10:01 Eliquis - PO 5 mg BID [facility] Administration Atorvastatin Calcium 20 mg 05/13/17 22:00 05/17/17 21:14 Lipitor - PO 20 mg HS [facility] Administration Baclofen 10 mg 05/17/17 22:00 05/18/17 13:24 Lioresal - PO 10 mg TID [facility] Administration Benztropine Mesylate 1 mg 05/14/17 10:00 05/18/17 10:01 Cogentin - PO 1 mg DAILY [facility] Administration Budesonide/Formoterol Fumarate 1 puff 05/13/17 10:00 05/18/17 10:01 Symbicort 80/4.5mcg - IH 1 inh DAILY [facility] Administration Bupropion HCl 300 mg 05/17/17 10:00 05/18/17 10:00 Wellbutrin Xl - PO 300 mg DAILY [facility] Administration Clonazepam 1 mg 05/14/17 10:00 05/18/17 09:59 Klonopin - PO 1 mg BID [facility] Administration Divalproex Sodium 750 mg 05/14/17 22:00 05/17/17 21:12 Depakote - PO 750 mg HS [facility] Administration Docusate Sodium 300 mg 05/13/17 22:00 05/17/17 21:15 Colace - PO 300 mg HS [facility] Administration Ferrous Sulfate 325 mg 05/13/17 10:00 05/18/17 09:59 Feosol - PO 325 mg DAILY [facility] Administration Fluoxetine HCl 40 mg 05/14/17 10:00 05/18/17 09:59 Prozac - PO 40 mg DAILY [facility] Administration Gabapentin 300 mg 05/14/17 14:00 05/18/17 13:24 Neurontin - PO 300 mg TID [facility] Administration Insulin Aspart 1 vial 05/13/17 07:00 05/18/17 11:11 Novolog Vial Sliding Scale - SQ Not Given ACHS [facility] Protocol Levothyroxine Sodium 50 mcg 05/14/17 07:00 05/18/17 06:01 Synthroid - PO 50 mcg DAILY@0700 [facility] Administration Meclizine HCl 12.5 mg 05/13/17 02:46 Antivert - PO Q6H PRN VERTIGO Metoprolol Succinate 12.5 mg 05/13/17 22:00 05/18/17 09:59 Toprol Xl - PO 12.5 mg BID [facility] Administration Oxycodone HCl 10 mg 05/15/17 19:18 05/18/17 12:08 Roxicodone - PO 10 mg Q6H PRN Administration PAIN Pantoprazole Sodium 40 mg 05/13/17 10:00 05/18/17 09:59 Protonix - PO 40 mg DAILY [facility] Administration Polyethylene Glycol 17 gm 05/14/17 10:00 05/18/17 10:00 Miralax (For Daily Use) - PO Not Given DAILY [facility] Quetiapine Fumarate 300 mg 05/15/17 22:00 05/17/17 21:11 Seroquel - PO 300 mg HS [facility] Administration Senna 2 tab 05/13/17 22:00 05/17/17 21:11 Senna - PO 2 tab HS [facility] Administration Imaging: Pelvic CT 05/12 - R acetabular fx on CT R Hip XR 05/12 - Finding suggestive of subtle acetabular fx. Non-con head CT 05/13 - Mild volume loss and mild to moderate ventriculomegaly that has increased since prior examination dated 01/25/2014. Neurology consult is suggested. No mass lesion, gross acute infarct or intracranial hemorrhage are identified Venous Duplex 05/15 - Impression: No DVT is identified involving either leg. Please see above. An approximately 4.4 x 2 x 1.3 cm right popliteal fossa cyst is noted. ASSESSMENT/PLAN: Patient is a 51 year old female who presented with severe constant hip pain with radiation to R foot after mechanical fall at home due to episode of vertigo. Patient continued to endorse command auditory hallucinations and suicidal ideations. Patient admitted for further monitoring and management. Right Acetabular Fracture - Non-displaced R posterior acetabular fx on 05/12 CT scan of pelvis - Orth consulted initially. Recommend to non-surgical intervention, Limited weight-bearing of R LE - oxycodone 10mg PO q6h PRN, acetaminophen for pain - Started on baclofen 10mg TID today. - PT following Auditory Command hallucinations/suicidality -Seen by psychiatric mental health nurse Candy Valverde, endorsing suicidality/command auditory hallucinations w/ active plan. Transfer to in psych facility pending. -Continue 1to1 -Continue Home medication Bupropion 300mg daily, Seroquel 300mg, Klonopin 1mg BID Urinary Frequency with Suprapubic Tenderness -U/A ordered -If U/A positive will send blood and urine cultures and start Abx Mechanical fall/chronic vertigo -07/[address] negative for acute bleed, mass or midline shift. Moderate ventriculomegaly/volume loss -Meclizine 12.5 q6h for vertigo -Fall risk Bipolar disorder/PTSD/psychosis/Depression - Depakote 750 qHs - Klonopin 1mg PO BID - Seroquel 300 qHs - Bupropion 300mg (400 mg non formulary) -Prozac 40 mg daily for now COPD - Ventolin 1 puff q4h prn - Symbicort 1 puff po daily HTN -Toprol XL 12.5 BID - Monitor BP CAD - Cardiology consulted. Recs appreciated. - Eliquis 5mg for hx of DVTs (2 month ago, most recent) and CVA - Nitroglycerin 0.4mg SL PRN - Toprol XL 12.5 BID - Atovastatin 20mg po qHs Hypothyroidism -TSH 1.55 -Synthroid 50mcg daily NIDDMII -ISS -BGM ACHS -Gabapentin 300mg TID for neuropathy per home med list F/E/N -PO hydration -Daily BMPs, no abs -Diabetic diet PPX -Eliquis 5mg BID -Protonix 40mg daily Disposition -Full code -Awaiting inpatient psych Visit type - Emergency Visit Emergency Visit: Yes ED Registration Date: 05/12/17 Care time: The patient presented to the Emergency Department on the above date and was hospitalized for further evaluation of their emergent condition. - New Patient This patient is new to me today: Yes Date on this admission: 05/18/17 - Critical Care Critical Care patient: No
--- NOTE | 2017-05-18 16:23 | PN ---
Teaching Attending Note Name of Resident: Sujatha Ybarra ATTENDING PHYSICIAN STATEMENT I saw and evaluated the patient. I reviewed the resident's note and discussed the case with the resident. I agree with the resident's findings and plan as documented. SUBJECTIVE: Cont to have R groin pain . cont to have auditory hallucinations , but have stopped to ask her to kill her self . complains of urinary frequency OBJECTIVE: NAD, awake , alert , and cooperative CV: RRR Lungs : CTAB Abd: soft, minimal TTP in suprapubic area , ND, NL BS. Ext: no edema , TTP over R groin . decreased senation to light touch in R LE . ASSESSMENT AND PLAN: 51 y/o lady with h/o CAD, s/p [place], CVA/TIA, asthma, schizophrenia, HTN, and other medical problems who presented after a mechanical fall and was found to have R pelvic Fx 1- R acetabular Fx and R inferior pubic Ramus Fx. - No surgical intervention - cont pain control - PT 2- Auditory hallucinations with suicidality - 1:1 observation - 2PC commitment for inpt psych - cont bupropion - cont seroquel - cont prozac and Klonopin 3- h/o cad and NM : - cont BB - not on ASA 4-H/o CVA: no h/o of Afib 5- Recent DVT as outpt 2 months ago, cont eliquis 5 BID 6- Dysuria : Check UA . blood work BMP tomorrow. pending psych placement
[2017-05-18] MEDS ORDERED: AZTREONAM 1 GRAM SYRINGE 1 GM/10 ML DISP.SYRIN IVPUSH SCH (18:00)
[2017-05-18 19:15] LABS: URINE LEUK ESTERASE 2+ (NEGATIVE)
[2017-05-18] MEDS: AZTREONAM 1 GRAM SYRINGE 1 GM/10 ML DISP.SYRIN IVPUSH SCH (19:55)
[2017-05-18] MEDS ORDERED: INSULIN (NOVOLOG) ASPART 100 UNITS/ML 10ML VIAL ONE (22:40)
[2017-05-18] MEDS: DIVALPROEX SODIUM 250 MG TABLET E.C. (FP) PO SCH (23:32)
[2017-05-18] MEDS: DOCUSATE SODIUM 100 MG CAPSULE (FP) PO SCH (23:32)
[2017-05-18] MEDS: ATORVASTATIN CA 20 MG TABLET (FP) PO SCH (23:34)
[2017-05-18] MEDS: QUEtiapine FUMARATE 100 MG TABLET (FP) PO SCH (23:34)
[2017-05-18] MEDS: SENNOSIDES 8.6MG TABLET (FP) PO SCH (23:34)
[2017-05-19] MEDS: ALBUTEROL SO4 18 GM HFA INHALER IH SCH ×6 (00:40→21:16)
[2017-05-19] MEDS: AZTREONAM 1 GRAM SYRINGE 1 GM/10 ML DISP.SYRIN IVPUSH SCH ×3 (02:43→17:26)
[2017-05-19] MEDS: INSULIN SLIDING SCALE (NOVOLOG) 1 VIAL SQ SCH ×4 (06:14→21:38)
[2017-05-19] MEDS ORDERED: INSULIN (NOVOLOG) ASPART 100 UNITS/ML 10ML VIAL ONE ×2 (06:47→21:13)
[2017-05-19] MEDS: LEVOTHYROXINE NA 100 MCG TABLET (FP) PO SCH (07:20)
[2017-05-19] MEDS: GABAPENTIN 300 MG CAPSULE (FP) PO SCH ×3 (07:20→21:37)
[2017-05-19] MEDS: BACLOFEN 10 MG TABLET (FP) PO SCH ×3 (07:21→21:37)
[2017-05-19] MEDS: oxyCODONE HCL 5 MG TABLET PO PRN ×3 (07:21→19:29)
[2017-05-19] MEDS: METOPROLOL SUCCINATE 25 MG TAB.SR.24H (FP) PO SCH ×2 (09:55→21:19)
[2017-05-19] MEDS: PANTOPRAZOLE 40 MG TABLET (FP) PO SCH (09:55)
[2017-05-19] MEDS: FLUoxetine HCL 20 MG CAPSULE (FP) PO SCH (09:55)
[2017-05-19] MEDS: BENZTROPINE MESYLATE 0.5 MG TABLET (FP) PO SCH (09:55)
[2017-05-19] MEDS: clonazePAM 0.5 MG TABLET PO SCH ×2 (09:55→21:30)
[2017-05-19] MEDS: APIXABAN 5 MG TABLET PO SCH ×2 (09:56→21:30)
[2017-05-19] MEDS: BUDESONIDE/FORMETEROL FUMARATE 80/4.5 mcg INHALER IH SCH (09:56)
[2017-05-19] MEDS: POLYETHYLENE GLYCOL 3350 119 GM BTL PO SCH (09:56)
[2017-05-19] MEDS: FERROUS SO4 325 MG TABLET (FP) PO SCH (09:58)
[2017-05-19 10:31] LABS: ANION GAP 7 (8-16); CALCIUM 8.9 mg/dL (8.5-10.1); CO2 28 mmol/L (21-32); GLUCOSE,RANDOM 110 mg/dL (74-106)
--- NOTE | 2017-05-19 11:01 | CON.ID ---
Consult Consult Specialty:: infectious diseases Reason for Consultation:: UTI, - History of Present Illness Chief Complaint: pain in the leg and increased frequency of urine History of Present Illness: 51y/o female admitted for rt hip pain and was diagnosed with rt pelvic fracture evalauted by ortho and being treated conservatively . 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 No: Alzheimer's, Dementia, Multiple Sclerosis, Peripheral Neuropathy, Parkinson's, Seizure, Syncope, Vertigo, Other Cardio/Vascular: Yes: CAD, HTN, Hyperlipdemia, [place] (x3 per pt) Pulmonary: Yes: Asthma, Sleep Apnea. No: Bronchitis, Cancer, COPD, O2 Dependent , Pneumonia, Previously Intubated, Pulmonary Embolus, Pulmonary Fibrosis, Other Gastrointestinal: Yes: Peptic Ulcer Disease. No: Ascites, Cancer, Constipation , Crohn's Disease, Diverticulitis, Diverticulosis, Esophageal Varices, Gastritis , GERD, GI Bleed, Hemorrhoids, Hiatal Hernia, Inflamatory Bowel Disease, Irritable Bowel Disease, Pancreatitis, Ulcerative Colitis, Other Psych: Yes: Addictions (cocaine abuse in past, clean since 2012), Depression, Other (Bipolar disorder) Musculoskeletal: Yes: Chronic low back pain Endocrine: Yes: Diabetes Mellitus, Other (Morbid Obesity) - Alcohol/Substance Use Hx Alcohol Use: No History of Substance Use: reports: Cocaine - Smoking History Smoking history: Never smoked Have you smoked in the past 12 months: No Aproximately how many cigarettes per day: 3 If you are a former smoker, when did you quit?: 09/18/2014 - Social History Usual Living Arrangement: Assisted History of Recent Travel: No Home Medications - Allergies Allergies/Adverse Reactions: Allergies Allergy/AdvReac Type Severity Reaction Status Date / Time hydromorphone HCl Allergy Intermediate Itching Verified 05/08/17 20:02 [From Dilaudid] amoxicillin [Amoxicillin] Allergy Verified 05/08/17 20:02 ampicillin Allergy Verified 05/08/17 20:02 aspirin Allergy Difficulty Verified 05/08/17 20:02 Breathing cranberry Allergy Rash Verified 05/08/17 20:02 doxycycline Allergy Rash Verified 05/08/17 20:02 Fish Containing Products Allergy Difficulty Verified 05/08/17 20:02 Breathing haloperidol [From Haldol] Allergy Rash Verified 05/08/17 20:02 haloperidol lactate Allergy Rash Verified 05/08/17 20:02 [From Haldol] ibuprofen [From Motrin] Allergy Difficulty Verified 05/08/17 20:02 Breathing ketorolac tromethamine Allergy Rash Verified 05/08/17 20:02 [From Toradol] levofloxacin [From Levaquin] Allergy Rash Verified 05/08/17 20:02 milk Allergy Difficulty Verified 05/08/17 20:02 Breathing oxycodone HCl [From Percocet] Allergy Rash Verified 05/08/17 20:02 Penicillins Allergy Difficulty Verified 05/08/17 20:02 Breathing sulfamethoxazole Allergy Rash Verified 05/08/17 20:02 [From Bactrim] trimethoprim [From Bactrim] Allergy Verified 05/08/17 20:02 warfarin sodium Allergy Verified 05/08/17 20:02 [From Coumadin] Gravy Allergy Unknown Uncoded 05/08/17 20:02 Cranberry/Cranberry juice Allergy Uncoded 05/08/17 20:02 raw tomato Allergy Uncoded 05/13/17 13:04 - Home Medications Home Medications: Ambulatory Orders Albuterol Sulfate Inhaler - [Ventolin HFA Inhaler -] 1 puff IH Q4H 03/15/17 Benztropine Mesylate [Cogentin -] 1 mg PO DAILY 03/15/17 Budesonide/Formeterol Fumarate [SYMBICORT 80/4.5mcg -] 1 inh PO DAILY 03/15/17 Bupropion HCl [Bupropion HCl Sr] 400 mg PO DAILY 03/15/17 Clonazepam [Klonopin] 1 mg PO BID 03/15/17 Docusate Sodium [Colace -] 300 mg PO HS 03/15/17 Ferrous Sulfate 325 mg PO DAILY 03/15/17 Furosemide [Lasix] 40 mg PO DAILY 03/15/17 Gabapentin [Neurontin] 300 mg PO TID 03/15/17 Metoprolol Succinate [Toprol XL -] 12.5 mg PO BID 03/15/17 Morphine *Sr* [MS Contin -] 15 mg PO Q6H 03/15/17 Nitroglycerin [Nitrostat] 0.6 mg SL PRN PRN 03/15/17 Polyethylene Glycol 3350 [Miralax 119 gm Btl -] 17 gm PO DAILY 03/15/17 Quetiapine Fumarate [Seroquel] 300 tab PO HS 03/15/17 Sennosides [Senna -] 2 tab PO HS 03/15/17 Simvastatin [Zocor -] 40 mg PO HS 03/15/17 Apixaban [Eliquis] 5 mg PO BID 03/16/17 Divalproex [Depakote -] 750 mg PO HS 03/16/17 Levothyroxine [Synthroid -] 50 mcg PO DAILY 03/16/17 Pantoprazole Sodium [Protonix] 40 mg PO DAILY 03/16/17 Fluoxetine HCl [Prozac -] 40 mg PO DAILY 04/24/17 Metformin HCl [Glucophage -] 500 mg PO BID 04/24/17 Tizanidine HCl [Zanaflex] 2 mg PO TID PRN 05/13/17 Review of Systems - Review of Systems Constitutional: reports: Other Eyes: reports: No Symptoms HENT: reports: No Symptoms Neck: reports: No Symptoms Cardiovascular: reports: No Symptoms Respiratory: reports: No Symptoms Gastrointestinal: reports: No Symptoms Genitourinary: reports: Frequency Musculoskeletal: reports: Joint Pain (rt side), Other Endocrine: reports: No Symptoms Hematology/Lymphatic: reports: No Symptoms Physical Exam Vital Signs: Vital Signs Temperature 98.6 F 05/19/17 09:00 Pulse Rate 87 05/19/17 09:00 Respiratory Rate 20 05/19/17 09:00 Blood Pressure 109/64 05/19/17 09:00 O2 Sat by Pulse Oximetry (%) 95 05/19/17 09:00 Constitutional: Yes: Well Nourished, Calm, Mild Distress, Obese Eyes: Yes: Conjunctiva Clear HENT: Yes: Atraumatic, Normocephalic Neck: Yes: Supple, Trachea Midline Cardiovascular: Yes: Regular Rate and Rhythm Respiratory: Yes: Regular, Poor Air Entry (bases) Gastrointestinal: Yes: Normal Bowel Sounds, Soft Musculoskeletal: Yes: Other (pain in the rt leg) Neurological: Yes: Alert, Oriented Psychiatric: Yes: Alert, Oriented Labs: CBC, BMP 05/15/17 10:50 05/19/17 09:53 Assessment/Plan patient with rt sided fracture now with uti and suicidal ideation and one to one patient still with symptoms cx have been send patient allergic to multiple medications allergies asked and noted what patient gets Problem List - Problems (1) Pelvic fracture Code(s): S32.9XXA - FRACTURE OF UNSP PARTS OF LUMBOSACRAL SPINE AND PELVIS, INIT Qualifiers: Encounter type: subsequent encounter Pelvic bone location: acetabulum Sublocation of acetabulum: posterior wall Fracture type: closed Fracture alignment: nondisplaced Laterality: right (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 Code(s): Z79.01 - [facility] (CURRENT) USE OF ANTICOAGULANTS (3) Bipolar disorder Code(s): F31.9 - BIPOLAR DISORDER, UNSPECIFIED Qualifiers: Active/Remission status: in full remission Most recent bipolar episode type : most recent episode depressed (4) 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 Code(s): E11.9 - TYPE 2 DIABETES MELLITUS WITHOUT COMPLICATIONS Qualifiers: 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 type: type 2 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 complication status: without complication (5) HTN (hypertension) Code(s): I10 - ESSENTIAL (PRIMARY) HYPERTENSION Qualifiers: Hypertension type: essential hypertension Qualified Code(s): I10 - Essential (primary) hypertension (6) Hyperlipidemia Code(s): E78.5 - HYPERLIPIDEMIA, UNSPECIFIED Qualifiers: Hyperlipidemia type: pure hypercholesterolemia Qualified Code(s): E78.00 - Pure hypercholesterolemia, unspecified; E78.0 - Pure hypercholesterolemia (7) ARVIND treated with BiPAP Code(s): G47.33 - OBSTRUCTIVE SLEEP APNEA (ADULT) (PEDIATRIC) (8) Auditory hallucinations Code(s): R44.0 - AUDITORY HALLUCINATIONS 9 UTI patient has received aztreonam plan we will continnue aztreonam await for cx reports to be back once we have that then we will decide further mgmt rest ct to monitor for fevers
--- NOTE | 2017-05-19 14:35 | PN ---
Progress Note (short form) - Note Progress Note: Subjective: no fever or chills. has pain in R hip. feels much better today Objective: Vital Signs: Last Vital Signs Temp Pulse Resp BP Pulse Ox 98.3 F 95 H 20 114/71 95 05/19/17 14:00 05/19/17 14:00 05/19/17 14:00 05/19/17 14:00 05/19/17 09:00 Laboratory Results - last 24 hr 05/18/17 05/18/17 05/18/17 13:08 16:49 23:29 Sodium Potassium Chloride Carbon Dioxide Anion Gap BUN Creatinine POC Glucometer 132 201 Random Glucose Calcium Ur Leukocyte Esterase 2+ H 05/19/17 05/19/17 05/19/17 06:11 09:53 11:00 Sodium 140 Potassium 4.5 Chloride 105 Carbon Dioxide 28 Anion Gap 7 L BUN 25 H Creatinine 1.0 POC Glucometer 97 90 Random Glucose 110 H D Calcium 8.9 Ur Leukocyte Esterase Physical Exam: NAD, awake , alert , and cooperative CV: RRR Lungs : CTAB Abd: soft, minimal TTP in suprapubic area , ND, NL BS. Ext: no edema , TTP over R groin . NL sensation in LE b/l ASSESSMENT AND PLAN: 51 y/o lady with h/o CAD, s/p [place], CVA/TIA, asthma, schizophrenia, HTN, and other medical problems who presented after a mechanical fall and was found to have R pelvic Fx 1- R acetabular Fx and R inferior pubic Ramus Fx. - No surgical intervention - cont pain control - PT 2- Auditory hallucinations with suicidality - 1:1 observation - 2PC commitment for inpt psych - cont bupropion - cont seroquel - cont prozac and Klonopin 3- UTI: with multiple allergies to ABx. cont ot have abd tenderness. unfortunately, ABx were given before U cx was sent - cont Aztreonam, day 2 - CBC in am 4-h/o CAD and CA : - cont BB - not on ASA 5- H/o CVA: no h/o of Afib 6- Recent DVT as outpt 2 months ago, cont eliquis 5 BID HLOC cont to search for inpatient psych facility Visit type - Emergency Visit Emergency Visit: Yes ED Registration Date: 05/12/17 Care time: The patient presented to the Emergency Department on the above date and was hospitalized for further evaluation of their emergent condition. - New Patient This patient is new to me today: No - Critical Care Critical Care patient: No
[2017-05-19] MEDS: AZTREONAM 1 GM in DEXTROSE 5%-WATER - 50 ML IVPB SCH (14:42)
[2017-05-19] MEDS ORDERED: ACETAMINOPHEN 1000 MG/100 ML VIAL (NON FORMULARY) IVPB ONE (20:59)
[2017-05-19] MEDS ORDERED: PT OWN MED DRAWER 7, Y5N ONE ×3 (21:16→21:20)
--- NOTE | 2017-05-19 21:21 | PN ---
Progress Note, Physician Chief Complaint: Events noted Complains of lower extremity pain Currently 1:1 for suicidal ideation History of Present Illness: Patient was seen and examined. Awake and alert. Chart was reviewed Denies chest pain, SOB or palpitations Hip and back pain - Current Medication List Current Medications: Active Medications Albuterol Sulfate (Ventolin Hfa Inhaler -) 2 puff IH Q4H [facility] Last Admin: 05/19/17 21:16 Dose: Not Given Apixaban (Eliquis -) 5 mg PO BID [facility] Last Admin: 05/19/17 09:56 Dose: 5 mg Atorvastatin Calcium (Lipitor -) 20 mg PO HS [facility] Last Admin: 05/18/17 23:34 Dose: 20 mg Baclofen (Lioresal -) 10 mg PO TID [facility] Last Admin: 05/19/17 13:21 Dose: 10 mg Benztropine Mesylate (Cogentin -) 1 mg PO DAILY [facility] Last Admin: 05/19/17 09:55 Dose: 1 mg Budesonide/Formoterol Fumarate (Symbicort 80/4.5mcg -) 1 puff IH DAILY [facility] Last Admin: 05/19/17 09:56 Dose: 1 inh Bupropion HCl (Wellbutrin Xl -) 300 mg PO DAILY [facility] Last Admin: 05/19/17 09:54 Dose: 300 mg Clonazepam (Klonopin -) 1 mg PO BID [facility] Last Admin: 05/19/17 09:55 Dose: 1 mg Divalproex Sodium (Depakote -) 750 mg PO [facility] Last Admin: 05/18/17 23:32 Dose: 750 mg Docusate Sodium (Colace -) 300 mg PO HS [facility] Last Admin: 05/18/17 23:32 Dose: 300 mg Ferrous Sulfate (Feosol -) 325 mg PO DAILY [facility] Last Admin: 05/19/17 09:58 Dose: 325 mg Fluoxetine HCl (Prozac -) 40 mg PO DAILY [facility] Last Admin: 05/19/17 09:55 Dose: 40 mg Gabapentin (Neurontin -) 300 mg PO TID [facility] Last Admin: 05/19/17 13:21 Dose: 300 mg Aztreonam (Azactam (Restricted To Id) -) 1 gm in 10 mls @ 120 mls/hr IVPUSH Q8H -IV [facility] PRN Reason: Protocol Last Admin: 05/19/17 17:26 Dose: 120 mls/hr Insulin Aspart (Novolog Vial Sliding Scale -) 1 vial SQ ACHS [facility] PRN Reason: Protocol Last Admin: 05/19/17 17:13 Dose: Not Given Levothyroxine Sodium (Synthroid -) 50 mcg PO DAILY@0700 [facility] Last Admin: 05/19/17 07:20 Dose: 50 mcg Meclizine HCl (Antivert -) 12.5 mg PO Q6H PRN PRN Reason: VERTIGO Metoprolol Succinate (Toprol Xl -) 12.5 mg PO BID [facility] Last Admin: 05/19/17 09:55 Dose: 12.5 mg Oxycodone HCl (Roxicodone -) 10 mg PO Q6H PRN PRN Reason: PAIN Last Admin: 05/19/17 19:29 Dose: 10 mg Pantoprazole Sodium (Protonix -) 40 mg PO DAILY [facility] Last Admin: 05/19/17 09:55 Dose: 40 mg Polyethylene Glycol (Miralax (For Daily Use) -) 17 gm PO DAILY [facility] Last Admin: 05/19/17 09:56 Dose: Not Given Quetiapine Fumarate (Seroquel -) 300 mg PO HS [facility] Last Admin: 05/18/17 23:34 Dose: 300 mg Senna (Senna -) 2 tab PO [facility] Last Admin: 05/18/17 23:34 Dose: 2 tab - Objective Vital Signs: Vital Signs Temperature 99 F 05/19/17 19:36 Pulse Rate 103 H 05/19/17 19:36 Respiratory Rate 20 05/19/17 19:36 Blood Pressure 105/81 05/19/17 19:36 O2 Sat by Pulse Oximetry (%) 95 05/19/17 19:37 Eyes: Yes: PERRL HENT: Yes: Atraumatic Neck: Yes: Supple Cardiovascular: Yes: Regular Rate and Rhythm, S1, S2 Respiratory: Yes: CTA Bilaterally Gastrointestinal: Yes: Normal Bowel Sounds, Soft. No: Tenderness Edema: No Labs: CBC, BMP 05/15/17 10:50 05/19/17 09:53 Problem List - Problems (1) Pelvic fracture Code(s): S32.9XXA - FRACTURE OF UNSP PARTS OF LUMBOSACRAL SPINE AND PELVIS, INIT Qualifiers: Encounter type: subsequent encounter Pelvic bone location: acetabulum Sublocation of acetabulum: posterior wall Fracture type: closed Fracture alignment: nondisplaced Laterality: right (2) Weakness Code(s): R53.1 - WEAKNESS (3) Bipolar disorder Code(s): F31.9 - BIPOLAR DISORDER, UNSPECIFIED Qualifiers: Active/Remission status: in full remission Most recent bipolar episode type : most recent episode depressed (4) Diabetes type 2, controlled Code(s): E11.9 - TYPE 2 DIABETES MELLITUS WITHOUT COMPLICATIONS Qualifiers: 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 complication status: without complication 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 ocean transportation intermediary insulin use: without snf use Qualified Code(s): E11.9 - Type 2 diabetes mellitus without complications (5) HTN (hypertension) Code(s): I10 - ESSENTIAL (PRIMARY) HYPERTENSION Qualifiers: Hypertension type: essential hypertension Qualified Code(s): I10 - Essential (primary) hypertension (6) Hyperlipidemia Code(s): E78.5 - HYPERLIPIDEMIA, UNSPECIFIED Qualifiers: Hyperlipidemia type: pure hypercholesterolemia Qualified Code(s): E78.00 - Pure hypercholesterolemia, unspecified; E78.0 - Pure hypercholesterolemia (7) CAD (coronary artery disease) Code(s): I25.10 - ATHSCL HEART DISEASE OF [place] CORONARY ARTERY W/O ANG PCTRS (8) COPD (chronic obstructive pulmonary disease) Code(s): J44.9 - CHRONIC OBSTRUCTIVE PULMONARY DISEASE, UNSPECIFIED Assessment/Plan 1. Non-displaced Fracture of right acetabulum 2. CAD h/o [place] 3. Hypothyroidism 4. Polysubstance abuse, Bipolar disorder and schizophrenia 5. COPD 6. CVA/TIA 7. Migraine headache 8. Suicidal ideation now on 1:1 PLAN: 1. Non-surgical management as per Orthopedics 2. Continue Metoprolol ER and Atorvastatin. 3. Maintain on Eliquis for DVT prophylaxis, but would need to clarify DVT prophylactic dose ? 2.5 mg BID 4. Continue analgesics and eventual psych inpatient care Further plans are to follow Ahmet Antunez MD
[2017-05-19] MEDS: DOCUSATE SODIUM 100 MG CAPSULE (FP) PO SCH (21:29)
[2017-05-19] MEDS: DIVALPROEX SODIUM 250 MG TABLET E.C. (FP) PO SCH (21:30)
[2017-05-19] MEDS: QUEtiapine FUMARATE 100 MG TABLET (FP) PO SCH (21:38)
[2017-05-19] MEDS: SENNOSIDES 8.6MG TABLET (FP) PO SCH (21:38)
[2017-05-19] MEDS: ATORVASTATIN CA 20 MG TABLET (FP) PO SCH (21:39)
[2017-05-20] MEDS: ALBUTEROL SO4 18 GM HFA INHALER IH SCH ×6 (00:42→23:09)
[2017-05-20] MEDS ORDERED: PT OWN MED DRAWER 7, Y5N ONE ×5 (01:57→18:27)
[2017-05-20] MEDS: AZTREONAM 1 GRAM SYRINGE 1 GM/10 ML DISP.SYRIN IVPUSH SCH ×3 (02:43→17:22)
[2017-05-20] MEDS: INSULIN SLIDING SCALE (NOVOLOG) 1 VIAL SQ SCH ×4 (06:28→21:52)
[2017-05-20] MEDS: LEVOTHYROXINE NA 100 MCG TABLET (FP) PO SCH (06:30)
[2017-05-20] MEDS: GABAPENTIN 300 MG CAPSULE (FP) PO SCH ×3 (06:31→21:40)
[2017-05-20] MEDS: BACLOFEN 10 MG TABLET (FP) PO SCH ×3 (06:32→21:39)
[2017-05-20] MEDS: oxyCODONE HCL 5 MG TABLET PO PRN ×2 (06:32→15:41)
[2017-05-20 08:17] LABS: EOS % 2.6 % (0-4.5); MCH 28.7 pg (25.7-33.7); MEAN CELL VOLUME 84.6 fl (80-96); MEAN PLT VOLUME 10.6 fl (7.5-11.1); NEUT % 59.5 % (42.8-82.8); PLATELET COUNT 171 K/MM3 (134-434); RDW 16.1 % (11.6-15.6); WHITE BLOOD COUNT 7.2 K/mm3 (4.0-10.0)
[2017-05-20] MEDS: clonazePAM 0.5 MG TABLET PO SCH ×2 (09:12→21:39)
[2017-05-20] MEDS: FERROUS SO4 325 MG TABLET (FP) PO SCH (09:12)
[2017-05-20] MEDS: FLUoxetine HCL 20 MG CAPSULE (FP) PO SCH (09:12)
[2017-05-20] MEDS: PANTOPRAZOLE 40 MG TABLET (FP) PO SCH (09:12)
[2017-05-20] MEDS: BUDESONIDE/FORMETEROL FUMARATE 80/4.5 mcg INHALER IH SCH (09:14)
[2017-05-20] MEDS: METOPROLOL SUCCINATE 25 MG TAB.SR.24H (FP) PO SCH ×2 (09:14→21:37)
[2017-05-20] MEDS: APIXABAN 5 MG TABLET PO SCH ×2 (09:15→21:38)
[2017-05-20] MEDS: POLYETHYLENE GLYCOL 3350 119 GM BTL PO SCH (09:15)
[2017-05-20] MEDS: BENZTROPINE MESYLATE 1 MG TABLET (FP) PO SCH (09:15)
--- NOTE | 2017-05-20 10:50 | PN ---
Progress Note, Physician History of Present Illness: Resting comfortably, remains on 1:1 observation for suicidal ideations. - Current Medication List Current Medications: Active Medications Albuterol Sulfate (Ventolin Hfa Inhaler -) 2 puff IH Q4H [facility] Last Admin: 05/20/17 09:12 Dose: Not Given Apixaban (Eliquis -) 5 mg PO BID [facility] Last Admin: 05/20/17 09:15 Dose: 5 mg Atorvastatin Calcium (Lipitor -) 20 mg PO HS [facility] Last Admin: 05/19/17 21:39 Dose: 20 mg Baclofen (Lioresal -) 10 mg PO TID [facility] Last Admin: 05/20/17 06:32 Dose: 10 mg Benztropine Mesylate (Cogentin -) 1 mg PO DAILY [facility] Last Admin: 05/20/17 09:15 Dose: 1 mg Budesonide/Formoterol Fumarate (Symbicort 80/4.5mcg -) 1 puff IH DAILY [facility] Last Admin: 05/20/17 09:14 Dose: 1 inh Bupropion HCl (Wellbutrin Xl -) 300 mg PO DAILY [facility] Last Admin: 05/20/17 09:15 Dose: 300 mg Clonazepam (Klonopin -) 1 mg PO BID [facility] Last Admin: 05/20/17 09:12 Dose: 1 mg Divalproex Sodium (Depakote -) 750 mg PO HS [facility] Last Admin: 05/19/17 21:30 Dose: 750 mg Docusate Sodium (Colace -) 300 mg PO HS [facility] Last Admin: 05/19/17 21:29 Dose: 300 mg Ferrous Sulfate (Feosol -) 325 mg PO DAILY [facility] Last Admin: 05/20/17 09:12 Dose: 325 mg Fluoxetine HCl (Prozac -) 40 mg PO DAILY [facility] Last Admin: 05/20/17 09:12 Dose: 40 mg Gabapentin (Neurontin -) 300 mg PO TID [facility] Last Admin: 05/20/17 06:31 Dose: 300 mg Aztreonam (Azactam (Restricted To Id) -) 1 gm in 10 mls @ 120 mls/hr IVPUSH Q8H -IV [facility] PRN Reason: Protocol Last Admin: 05/20/17 09:24 Dose: 120 mls/hr Insulin Aspart (Novolog Vial Sliding Scale -) 1 vial SQ ACHS [facility] PRN Reason: Protocol Last Admin: 05/20/17 06:28 Dose: Not Given Levothyroxine Sodium (Synthroid -) 50 mcg PO DAILY@0700 [facility] Last Admin: 05/20/17 06:30 Dose: 50 mcg Meclizine HCl (Antivert -) 12.5 mg PO Q6H PRN PRN Reason: VERTIGO Metoprolol Succinate (Toprol Xl -) 12.5 mg PO BID [facility] Last Admin: 05/20/17 09:14 Dose: 12.5 mg Oxycodone HCl (Roxicodone -) 10 mg PO Q6H PRN PRN Reason: PAIN Last Admin: 05/20/17 06:32 Dose: 10 mg Pantoprazole Sodium (Protonix -) 40 mg PO DAILY [facility] Last Admin: 05/20/17 09:12 Dose: 40 mg Polyethylene Glycol (Miralax (For Daily Use) -) 17 gm PO DAILY [facility] Last Admin: 05/20/17 09:15 Dose: Not Given Quetiapine Fumarate (Seroquel -) 300 mg PO HS [facility] Last Admin: 05/19/17 21:38 Dose: 300 mg Senna (Senna -) 2 tab PO [facility] Last Admin: 05/19/17 21:38 Dose: 2 tab - Objective Vital Signs: Vital Signs Temperature 98.1 F 05/20/17 08:54 Pulse Rate 84 05/20/17 08:54 Respiratory Rate 20 05/20/17 08:54 Blood Pressure 114/67 05/20/17 08:54 O2 Sat by Pulse Oximetry (%) 95 05/19/17 19:37 Constitutional: Yes: No Distress, Calm Neck: Yes: Supple Cardiovascular: Yes: Regular Rate and Rhythm Respiratory: Yes: Regular, Diminished Gastrointestinal: Yes: Normal Bowel Sounds, Soft, Abdomen, Obese Edema: No Labs: CBC, BMP 05/20/17 06:30 05/19/17 09:53 INR, PTT INR 1.10 (0.82-1.09) 05/13/17 06:00 Problem List - Problems (1) Pelvic fracture Code(s): S32.9XXA - FRACTURE OF UNSP PARTS OF LUMBOSACRAL SPINE AND PELVIS, INIT Qualifiers: Encounter type: subsequent encounter Pelvic bone location: acetabulum Sublocation of acetabulum: posterior wall Fracture type: closed Fracture alignment: nondisplaced Laterality: right (2) 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 (3) Bipolar disorder Code(s): F31.9 - BIPOLAR DISORDER, UNSPECIFIED Qualifiers: Active/Remission status: in full remission Most recent bipolar episode type : most recent episode depressed (4) 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 Code(s): E11.9 - TYPE 2 DIABETES MELLITUS WITHOUT COMPLICATIONS Qualifiers: 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 type: type 2 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 complication status: without complication (5) HTN (hypertension) Code(s): I10 - ESSENTIAL (PRIMARY) HYPERTENSION Qualifiers: Hypertension type: essential hypertension Qualified Code(s): I10 - Essential (primary) hypertension (6) Hyperlipidemia Code(s): E78.5 - HYPERLIPIDEMIA, UNSPECIFIED Qualifiers: Hyperlipidemia type: pure hypercholesterolemia Qualified Code(s): E78.00 - Pure hypercholesterolemia, unspecified; E78.0 - Pure hypercholesterolemia (7) ARVIND treated with BiPAP Code(s): G47.33 - OBSTRUCTIVE SLEEP APNEA (ADULT) (PEDIATRIC) (8) Auditory hallucinations Code(s): R44.0 - AUDITORY HALLUCINATIONS (9) Suicidal ideations Code(s): R45.851 - SUICIDAL IDEATIONS (10) DVT (deep venous thrombosis) Code(s): I82.409 - ACUTE EMBOLISM AND THOMBOS UNSP DEEP VN UNSP LOWER EXTREMITY Assessment/Plan 1. Non-displaced Fracture of right acetabulum 2. CAD h/o [place] 3. Hypothyroidism 4. Polysubstance abuse, Bipolar disorder and schizophrenia 5. COPD 6. CVA/TIA 7. Migraine headache 8. Suicidal ideation now on 1:1 9. DVT 2 months ago 10. UTI PLAN: 1. Non-surgical management as per Orthopedics 2. Continue Metoprolol ER 12.5 bid and Atorvastatin 20 qhs. 3. Maintain on Eliquis 5 bid for DVT treatment 4. Continue analgesics and eventual psych inpatient care 5. Abx course for UTI
--- NOTE | 2017-05-20 13:12 | PN ---
Progress Note, Physician History of Present Illness: remains on 1 to 1 for suicidal ideas otherwise stable - Current Medication List Current Medications: Active Medications Albuterol Sulfate (Ventolin Hfa Inhaler -) 2 puff IH Q4H [facility] Last Admin: 05/20/17 11:22 Dose: 2 puff Apixaban (Eliquis -) 5 mg PO BID [facility] Last Admin: 05/20/17 09:15 Dose: 5 mg Atorvastatin Calcium (Lipitor -) 20 mg PO HS [facility] Last Admin: 05/19/17 21:39 Dose: 20 mg Baclofen (Lioresal -) 10 mg PO TID [facility] Last Admin: 05/20/17 06:32 Dose: 10 mg Benztropine Mesylate (Cogentin -) 1 mg PO DAILY [facility] Last Admin: 05/20/17 09:15 Dose: 1 mg Budesonide/Formoterol Fumarate (Symbicort 80/4.5mcg -) 1 puff IH DAILY [facility] Last Admin: 05/20/17 09:14 Dose: 1 inh Bupropion HCl (Wellbutrin Xl -) 300 mg PO DAILY [facility] Last Admin: 05/20/17 09:15 Dose: 300 mg Clonazepam (Klonopin -) 1 mg PO BID [facility] Last Admin: 05/20/17 09:12 Dose: 1 mg Divalproex Sodium (Depakote -) 750 mg PO HS [facility] Last Admin: 05/19/17 21:30 Dose: 750 mg Docusate Sodium (Colace -) 300 mg PO HS [facility] Last Admin: 05/19/17 21:29 Dose: 300 mg Ferrous Sulfate (Feosol -) 325 mg PO DAILY [facility] Last Admin: 05/20/17 09:12 Dose: 325 mg Fluoxetine HCl (Prozac -) 40 mg PO DAILY [facility] Last Admin: 05/20/17 09:12 Dose: 40 mg Gabapentin (Neurontin -) 300 mg PO TID [facility] Last Admin: 05/20/17 06:31 Dose: 300 mg Aztreonam (Azactam (Restricted To Id) -) 1 gm in 10 mls @ 120 mls/hr IVPUSH Q8H -IV [facility] PRN Reason: Protocol Last Admin: 05/20/17 09:24 Dose: 120 mls/hr Insulin Aspart (Novolog Vial Sliding Scale -) 1 vial SQ ACHS [facility] PRN Reason: Protocol Last Admin: 05/20/17 11:23 Dose: Not Given Levothyroxine Sodium (Synthroid -) 50 mcg PO DAILY@0700 [facility] Last Admin: 05/20/17 06:30 Dose: 50 mcg Meclizine HCl (Antivert -) 12.5 mg PO Q6H PRN PRN Reason: VERTIGO Metoprolol Succinate (Toprol Xl -) 12.5 mg PO BID [facility] Last Admin: 05/20/17 09:14 Dose: 12.5 mg Oxycodone HCl (Roxicodone -) 10 mg PO Q6H PRN PRN Reason: PAIN Last Admin: 05/20/17 06:32 Dose: 10 mg Pantoprazole Sodium (Protonix -) 40 mg PO DAILY [facility] Last Admin: 05/20/17 09:12 Dose: 40 mg Polyethylene Glycol (Miralax (For Daily Use) -) 17 gm PO DAILY [facility] Last Admin: 05/20/17 09:15 Dose: Not Given Quetiapine Fumarate (Seroquel -) 300 mg PO [facility] Last Admin: 05/19/17 21:38 Dose: 300 mg Senna (Senna -) 2 tab PO [facility] Last Admin: 05/19/17 21:38 Dose: 2 tab - Objective Vital Signs: Vital Signs Temperature 98.1 F 05/20/17 08:54 Pulse Rate 84 05/20/17 08:54 Respiratory Rate 20 05/20/17 08:54 Blood Pressure 114/67 05/20/17 08:54 O2 Sat by Pulse Oximetry (%) 92 L 05/20/17 09:00 Constitutional: Yes: No Distress, Calm Cardiovascular: Yes: Regular Rate and Rhythm Respiratory: Yes: Regular, CTA Bilaterally Gastrointestinal: Yes: Normal Bowel Sounds, Soft Extremities: Yes: Other Labs: CBC, BMP 05/20/17 06:30 05/19/17 09:53 INR, PTT INR 1.10 (0.82-1.09) 05/13/17 06:00 Assessment/Plan patient with rt sided fracture now with uti and suicidal ideation and one to one patient still with symptoms cx have been send patient allergic to multiple medications allergies asked and noted what patient gets Problem List - Problems (1) Pelvic fracture Code(s): S32.9XXA - FRACTURE OF UNSP PARTS OF LUMBOSACRAL SPINE AND PELVIS, INIT Qualifiers: Encounter type: subsequent encounter Pelvic bone location: acetabulum Sublocation of acetabulum: posterior wall Fracture type: closed Fracture alignment: nondisplaced Laterality: right (2) 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 Code(s): Z79.01 - JAIL (CURRENT) USE OF ANTICOAGULANTS (3) Bipolar disorder Code(s): F31.9 - BIPOLAR DISORDER, UNSPECIFIED Qualifiers: Active/Remission status: in full remission Most recent bipolar episode type : most recent episode depressed (4) 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 Code(s): E11.9 - TYPE 2 DIABETES MELLITUS WITHOUT COMPLICATIONS Qualifiers: 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 type: type 2 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 complication status: without complication (5) HTN (hypertension) Code(s): I10 - ESSENTIAL (PRIMARY) HYPERTENSION Qualifiers: Hypertension type: essential hypertension Qualified Code(s): I10 - Essential (primary) hypertension (6) Hyperlipidemia Code(s): E78.5 - HYPERLIPIDEMIA, UNSPECIFIED Qualifiers: Hyperlipidemia type: pure hypercholesterolemia Qualified Code(s): E78.00 - Pure hypercholesterolemia, unspecified; E78.0 - Pure hypercholesterolemia (7) ARVIND treated with BiPAP Code(s): G47.33 - OBSTRUCTIVE SLEEP APNEA (ADULT) (PEDIATRIC) (8) Auditory hallucinations Code(s): R44.0 - AUDITORY HALLUCINATIONS 9 UTI plan continue abx repeat urine rest as per primary team
--- NOTE | 2017-05-20 17:28 | PN ---
Physical Exam: SUBJECTIVE: Patient seen and examined. No acute events overnight. Pt states that right hip pain is same as yesterday, well controlled. She denies chest pain, SOB, abdominal pain, n/v/d/c, and dysuria. OBJECTIVE: Vital Signs Period Temp Pulse Resp BP Sys/Schultz Pulse Ox Last 24 Hr 97.9 F-99 F 84-103 20-20 101-114/54-81 92-95 GENERAL: middle aged female, tired, alert, in no acute distress. HEENT: NC, AT LUNGS: Breath sounds equal, clear to auscultation bilaterally, no wheezes, no crackles, no accessory muscle use. HEART: Regular rate and rhythm, S1, S2 without murmur, rub or gallop. ABDOMEN: obese abdomen, soft, nontender, nondistended, normoactive bowel sounds , no guarding EXTREMITIES: no edema. R leg is externally rotated. NEUROLOGICAL: Normal speech, gait not observed. PSYCH: denies SI, HI, AH, and VH Laboratory Results - last 24 hr 05/19/17 05/20/17 05/20/17 21:29 06:27 06:30 WBC 7.2 RBC 3.98 Hgb 11.4 Hct 33.7 MCV 84.6 MCH 28.7 MCHC 34.0 RDW 16.1 H Plt Count 171 D MPV 10.6 Neutrophils % 59.5 Lymphocytes % 31.9 D Monocytes % 5.0 Eosinophils % 2.6 Basophils % 1.0 POC Glucometer 165 101 Active Medications Generic Name Dose Route Start Last Admin Trade Name Freq PRN Reason Stop Dose Admin Albuterol Sulfate 2 puff 05/13/17 07:15 05/20/17 15:41 Ventolin Hfa Inhaler - IH 2 puff Q4H [facility] Administration Apixaban 5 mg 05/18/17 10:00 05/20/17 09:15 Eliquis - PO 5 mg BID [facility] Administration Atorvastatin Calcium 20 mg 05/13/17 22:00 05/19/17 21:39 Lipitor - PO 20 mg HS [facility] Administration Baclofen 10 mg 05/17/17 22:00 05/20/17 13:19 Lioresal - PO 10 mg TID [facility] Administration Benztropine Mesylate 1 mg 05/20/17 10:00 05/20/17 09:15 Cogentin - PO 1 mg DAILY [facility] Administration Budesonide/Formoterol Fumarate 1 puff 05/13/17 10:00 05/20/17 09:14 Symbicort 80/4.5mcg - IH 1 inh DAILY [facility] Administration Bupropion HCl 300 mg 05/17/17 10:00 05/20/17 09:15 Wellbutrin Xl - PO 300 mg DAILY [facility] Administration Clonazepam 1 mg 05/14/17 10:00 05/20/17 09:12 Klonopin - PO 1 mg BID [facility] Administration Divalproex Sodium 750 mg 05/14/17 22:00 05/19/17 21:30 Depakote - PO 750 mg HS [facility] Administration Docusate Sodium 300 mg 05/13/17 22:00 05/19/17 21:29 Colace - PO 300 mg HS [facility] Administration Ferrous Sulfate 325 mg 05/13/17 10:00 05/20/17 09:12 Feosol - PO 325 mg DAILY [facility] Administration Fluoxetine HCl 40 mg 05/14/17 10:00 05/20/17 09:12 Prozac - PO 40 mg DAILY [facility] Administration Gabapentin 300 mg 05/14/17 14:00 05/20/17 13:19 Neurontin - PO 300 mg TID [facility] Administration Aztreonam 1 gm in 10 mls @ 120 mls/hr 05/19/17 11:00 05/20/17 09:24 Azactam (Restricted To Id) - IVPUSH 120 mls/hr Q8H-IV [facility] Administration Protocol Insulin Aspart 1 vial 05/13/17 07:00 05/20/17 16:35 Novolog Vial Sliding Scale - SQ Not Given ACHS [facility] Protocol Levothyroxine Sodium 50 mcg 05/14/17 07:00 05/20/17 06:30 Synthroid - PO 50 mcg DAILY@0700 [facility] Administration Meclizine HCl 12.5 mg 05/13/17 02:46 Antivert - PO Q6H PRN [facility]IGO Metoprolol Succinate 12.5 mg 05/13/17 22:00 05/20/17 09:14 Toprol Xl - PO 12.5 mg BID [facility] Administration Oxycodone HCl 10 mg 05/15/17 19:18 05/20/17 15:41 Roxicodone - PO 10 mg Q6H PRN Administration PAIN Pantoprazole Sodium 40 mg 05/13/17 10:00 05/20/17 09:12 Protonix - PO 40 mg DAILY [facility] Administration Polyethylene Glycol 17 gm 05/14/17 10:00 05/20/17 09:15 Miralax (For Daily Use) - PO Not Given DAILY [facility] Quetiapine Fumarate 300 mg 05/15/17 22:00 05/19/17 21:38 Seroquel - PO 300 mg HS [facility] Administration Senna 2 tab 05/13/17 22:00 05/19/17 21:38 Senna - PO 2 tab HS [facility] Administration ASSESSMENT/PLAN: 51F w/ hx of CAD s/p MS, CVA/TIA, asthma, DVT, schizophrenia, and HTN who presented after a mechanical fall and was found to have R acetabular and right inferior pubic ramus fracture. #R acetabular Fx and R inferior pubic Ramus Fx - no surgical intervention - continue pain control with oxycodone PRN - PT #Auditory hallucinations with suicidality - 1:1 observation - awaiting inpt psych consideration at [facility] - continue bupropion, seroquel, prozac, Klonopin, depakote #DM -continue ISS, gabapentin #UTI - multiple allergies to abx, abx were given before Ucx was sent -still has abdominal tenderness. No fever, no leukocytosis. - cont Aztreonam, day 3. Switch to nitrofurantoin once inpt bed available - monitor wbc count #asthma -continue symbicort and ventolin #hypothyroidism -continue synthroid #anemia -continue ferrous sulfate #HLD -continue lipitor #constipation -continue colace, miralax, senna #h/o CAD and MS - cont toprol - not on ASA #H/o CVA: no h/o of Afib #DVT - occurred as outpt 2 months ago - cont eliquis 5 BID #FEN/ppx -not on fluids -no electrolyte labs today -diabetic diet -protonix 40 -eliquis 5 BID #Dispo -awaiting inpatient psych placement -Deondre Moya MD PGY1 Visit type - Emergency Visit Emergency Visit: Yes ED Registration Date: 05/12/17 Care time: The patient presented to the Emergency Department on the above date and was hospitalized for further evaluation of their emergent condition. - New Patient This patient is new to me today: Yes Date on this admission: 05/20/17 - Critical Care Critical Care patient: No
--- NOTE | 2017-05-20 19:20 | PN ---
Teaching Attending Note Name of Resident: Deondre Moya ATTENDING PHYSICIAN STATEMENT I saw and evaluated the patient. I reviewed the resident's note and discussed the case with the resident. I agree with the resident's findings and plan as documented. SUBJECTIVE: pain in R hip, no fever or chills, has minimal dysuria OBJECTIVE: NAD, awake , alert , and cooperative CV: RRR Lungs: CTAB Abd: soft, minimal TTP in suprapubic area , ND, NL BS. Ext: no edema , TTP over R groin . NL sensation in LE b/l ASSESSMENT AND PLAN: 51 y/o lady with h/o CAD, s/p HI, CVA/TIA, asthma, schizophrenia, HTN, and other medical problems who presented after a mechanical fall and was found to have R pelvic Fx 1- R acetabular Fx and R inferior pubic Ramus Fx. - No surgical intervention - cont pain control - PT 2- Auditory hallucinations with suicidality - 1:1 observation - cont bupropion - cont seroquel - cont prozac and Klonopin 3- UTI: with multiple allergies to ABx. cont ot have abd tenderness. unfortunately, ABx were given before U cx was sent , and cx is contaminant - cont Aztreonam, day 3 . - probably at dc will switch to po Macrobid 4-h/o CAD and HI : - cont BB - not on ASA 5- H/o CVA: no h/o of Afib 6- Recent DVT as outpt 2 months ago, cont eliquis 5 BID HLOC cont to search for inpatient psych facility
[2017-05-20] MEDS: SENNOSIDES 8.6MG TABLET (FP) PO SCH (21:36)
[2017-05-20] MEDS: DIVALPROEX SODIUM 250 MG TABLET E.C. (FP) PO SCH (21:38)
[2017-05-20] MEDS: DOCUSATE SODIUM 100 MG CAPSULE (FP) PO SCH (21:38)
[2017-05-20] MEDS: QUEtiapine FUMARATE 100 MG TABLET (FP) PO SCH (21:40)
[2017-05-20] MEDS: ATORVASTATIN CA 20 MG TABLET (FP) PO SCH (21:50)
[2017-05-21] MEDS: AZTREONAM 1 GRAM SYRINGE 1 GM/10 ML DISP.SYRIN IVPUSH SCH ×3 (02:09→17:48)
[2017-05-21] MEDS: ALBUTEROL SO4 18 GM HFA INHALER IH SCH ×6 (02:21→22:39)
[2017-05-21] MEDS: BACLOFEN 10 MG TABLET (FP) PO SCH ×3 (06:18→21:24)
[2017-05-21] MEDS: GABAPENTIN 300 MG CAPSULE (FP) PO SCH ×3 (06:18→21:24)
[2017-05-21] MEDS: LEVOTHYROXINE NA 100 MCG TABLET (FP) PO SCH (06:18)
[2017-05-21] MEDS: oxyCODONE HCL 5 MG TABLET PO PRN ×3 (06:20→20:01)
[2017-05-21] MEDS: INSULIN SLIDING SCALE (NOVOLOG) 1 VIAL SQ SCH ×4 (06:21→21:26)
[2017-05-21] MEDS ORDERED: PT OWN MED DRAWER 7, Y5N ONE ×3 (09:38→21:10)
[2017-05-21] MEDS: FERROUS SO4 325 MG TABLET (FP) PO SCH (09:39)
[2017-05-21] MEDS: PANTOPRAZOLE 40 MG TABLET (FP) PO SCH (09:40)
[2017-05-21] MEDS: clonazePAM 0.5 MG TABLET PO SCH ×2 (09:40→21:23)
[2017-05-21] MEDS: FLUoxetine HCL 20 MG CAPSULE (FP) PO SCH (09:40)
[2017-05-21] MEDS: BENZTROPINE MESYLATE 1 MG TABLET (FP) PO SCH (09:40)
[2017-05-21] MEDS: MECLIZINE HCL 12.5 MG TABLET PO PRN (09:40)
[2017-05-21] MEDS: BUDESONIDE/FORMETEROL FUMARATE 80/4.5 mcg INHALER IH SCH (09:41)
[2017-05-21] MEDS: POLYETHYLENE GLYCOL 3350 119 GM BTL PO SCH (09:41)
[2017-05-21] MEDS: APIXABAN 5 MG TABLET PO SCH ×2 (09:41→21:25)
[2017-05-21] MEDS: METOPROLOL SUCCINATE 25 MG TAB.SR.24H (FP) PO SCH ×2 (09:41→21:24)
--- NOTE | 2017-05-21 11:37 | PN ---
Progress Note, Physician Chief Complaint: Events noted Complains of lower extremity and back pain Currently 1:1 observation for suicidal ideation History of Present Illness: Patient was seen and examined. Awake and alert. Chart was reviewed Denies chest pain, SOB or palpitations Hip and back pain - Current Medication List Current Medications: Active Medications Albuterol Sulfate (Ventolin Hfa Inhaler -) 2 puff IH Q4H [facility] Last Admin: 05/21/17 11:24 Dose: Not Given Apixaban (Eliquis -) 5 mg PO BID [facility] Last Admin: 05/21/17 09:41 Dose: 5 mg Atorvastatin Calcium (Lipitor -) 20 mg PO HS [facility] Last Admin: 05/20/17 21:50 Dose: 20 mg Baclofen (Lioresal -) 10 mg PO TID [facility] Last Admin: 05/21/17 06:18 Dose: 10 mg Benztropine Mesylate (Cogentin -) 1 mg PO DAILY [facility] Last Admin: 05/21/17 09:40 Dose: 1 mg Budesonide/Formoterol Fumarate (Symbicort 80/4.5mcg -) 1 puff IH DAILY [facility] Last Admin: 05/21/17 09:41 Dose: 1 inh Bupropion HCl (Wellbutrin Xl -) 300 mg PO DAILY [facility] Last Admin: 05/21/17 09:41 Dose: 300 mg Clonazepam (Klonopin -) 1 mg PO BID [facility] Last Admin: 05/21/17 09:40 Dose: 1 mg Divalproex Sodium (Depakote -) 750 mg PO HS [facility] Last Admin: 05/20/17 21:38 Dose: 750 mg Docusate Sodium (Colace -) 300 mg PO HS [facility] Last Admin: 05/20/17 21:38 Dose: 300 mg Ferrous Sulfate (Feosol -) 325 mg PO DAILY [facility] Last Admin: 05/21/17 09:39 Dose: 325 mg Fluoxetine HCl (Prozac -) 40 mg PO DAILY [facility] Last Admin: 05/21/17 09:40 Dose: 40 mg Gabapentin (Neurontin -) 300 mg PO TID [facility] Last Admin: 05/21/17 06:18 Dose: 300 mg Aztreonam (Azactam (Restricted To Id) -) 1 gm in 10 mls @ 120 mls/hr IVPUSH Q8H -IV [facility] PRN Reason: Protocol Last Admin: 05/21/17 02:09 Dose: 120 mls/hr Insulin Aspart (Novolog Vial Sliding Scale -) 1 vial SQ ACHS [facility] PRN Reason: Protocol Last Admin: 05/21/17 11:24 Dose: Not Given Levothyroxine Sodium (Synthroid -) 50 mcg PO DAILY@0700 [facility] Last Admin: 05/21/17 06:18 Dose: 50 mcg Meclizine HCl (Antivert -) 12.5 mg PO Q6H PRN PRN Reason: [facility]ERTIGO Last Admin: 05/21/17 09:40 Dose: 12.5 mg Metoprolol Succinate (Toprol Xl -) 12.5 mg PO BID [facility] Last Admin: 05/21/17 09:41 Dose: Not Given Oxycodone HCl (Roxicodone -) 10 mg PO Q6H PRN PRN Reason: PAIN Last Admin: 05/21/17 06:20 Dose: 10 mg Pantoprazole Sodium (Protonix -) 40 mg PO DAILY [facility] Last Admin: 05/21/17 09:40 Dose: 40 mg Polyethylene Glycol (Miralax (For Daily Use) -) 17 gm PO DAILY [facility] Last Admin: 05/21/17 09:41 Dose: Not Given Quetiapine Fumarate (Seroquel -) 300 mg PO HS [facility] Last Admin: 05/20/17 21:40 Dose: 300 mg Senna (Senna -) 2 tab PO [facility] Last Admin: 05/20/17 21:36 Dose: 2 tab - Objective Vital Signs: Vital Signs Temperature 98.4 F 05/21/17 09:00 Pulse Rate 86 05/21/17 09:00 Respiratory Rate 20 05/21/17 09:00 Blood Pressure 94/55 05/21/17 09:00 O2 Sat by Pulse Oximetry (%) 98 05/21/17 09:00 Eyes: Yes: PERRL HENT: Yes: Atraumatic Neck: Yes: Supple Cardiovascular: Yes: Regular Rate and Rhythm, S1, S2 Respiratory: Yes: CTA Bilaterally Gastrointestinal: Yes: Normal Bowel Sounds, Soft. No: Tenderness Edema: No Labs: CBC, BMP 05/20/17 06:30 05/19/17 09:53 Problem List - Problems (1) Pelvic fracture Code(s): S32.9XXA - FRACTURE OF UNSP PARTS OF LUMBOSACRAL SPINE AND PELVIS, INIT Qualifiers: Encounter type: subsequent encounter Pelvic bone location: acetabulum Sublocation of acetabulum: posterior wall Fracture type: closed Fracture alignment: nondisplaced Laterality: right (2) Weakness Code(s): R53.1 - WEAKNESS (3) Bipolar disorder Code(s): F31.9 - BIPOLAR DISORDER, UNSPECIFIED Qualifiers: Active/Remission status: in full remission Most recent bipolar episode type : most recent episode depressed (4) Diabetes type 2, controlled Code(s): E11.9 - TYPE 2 DIABETES MELLITUS WITHOUT COMPLICATIONS Qualifiers: 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 complication status: without complication 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 longterm insulin use: without longterm use Qualified Code(s): E11.9 - Type 2 diabetes mellitus without complications (5) HTN (hypertension) Code(s): I10 - ESSENTIAL (PRIMARY) HYPERTENSION Qualifiers: Hypertension type: essential hypertension Qualified Code(s): I10 - Essential (primary) hypertension (6) Hyperlipidemia Code(s): E78.5 - HYPERLIPIDEMIA, UNSPECIFIED Qualifiers: Hyperlipidemia type: pure hypercholesterolemia Qualified Code(s): E78.00 - Pure hypercholesterolemia, unspecified; E78.0 - Pure hypercholesterolemia (7) CAD (coronary artery disease) Code(s): I25.10 - ATHSCL HEART DISEASE OF [place] CORONARY ARTERY W/O ANG PCTRS (8) COPD (chronic obstructive pulmonary disease) Code(s): J44.9 - CHRONIC OBSTRUCTIVE PULMONARY DISEASE, UNSPECIFIED Assessment/Plan 1. Non-displaced Fracture of right acetabulum 2. CAD h/o OR 3. Hypothyroidism 4. Polysubstance abuse, Bipolar disorder and schizophrenia 5. COPD 6. CVA/TIA 7. Migraine headache 8. Suicidal ideation now on 1:1 PLAN: 1. Non-surgical management as per Orthopedics 2. Continue Metoprolol ER and Atorvastatin. 3. Maintain on Eliquis for DVT prophylaxis, but would need to clarify DVT prophylactic dose ? 2.5 mg BID 4. Continue analgesics and eventual psych inpatient care Further plans are to follow Ahmet Antunez MD
--- NOTE | 2017-05-21 13:48 | PN ---
Progress Note, Physician History of Present Illness: stable no new issues dysuria improving - Current Medication List Current Medications: Active Medications Albuterol Sulfate (Ventolin Hfa Inhaler -) 2 puff IH Q4H [facility] Last Admin: 05/21/17 11:24 Dose: Not Given Apixaban (Eliquis -) 5 mg PO BID [facility] Last Admin: 05/21/17 09:41 Dose: 5 mg Atorvastatin Calcium (Lipitor -) 20 mg PO HS [facility] Last Admin: 05/20/17 21:50 Dose: 20 mg Baclofen (Lioresal -) 10 mg PO TID [facility] Last Admin: 05/21/17 06:18 Dose: 10 mg Benztropine Mesylate (Cogentin -) 1 mg PO DAILY [facility] Last Admin: 05/21/17 09:40 Dose: 1 mg Budesonide/Formoterol Fumarate (Symbicort 80/4.5mcg -) 1 puff IH DAILY [facility] Last Admin: 05/21/17 09:41 Dose: 1 inh Bupropion HCl (Wellbutrin Xl -) 300 mg PO DAILY [facility] Last Admin: 05/21/17 09:41 Dose: 300 mg Clonazepam (Klonopin -) 1 mg PO BID [facility] Last Admin: 05/21/17 09:40 Dose: 1 mg Divalproex Sodium (Depakote -) 750 mg PO [facility] Last Admin: 05/20/17 21:38 Dose: 750 mg Docusate Sodium (Colace -) 300 mg PO HS [facility] Last Admin: 05/20/17 21:38 Dose: 300 mg Ferrous Sulfate (Feosol -) 325 mg PO DAILY [facility] Last Admin: 05/21/17 09:39 Dose: 325 mg Fluoxetine HCl (Prozac -) 40 mg PO DAILY [facility] Last Admin: 05/21/17 09:40 Dose: 40 mg Gabapentin (Neurontin -) 300 mg PO TID [facility] Last Admin: 05/21/17 06:18 Dose: 300 mg Aztreonam (Azactam (Restricted To Id) -) 1 gm in 10 mls @ 120 mls/hr IVPUSH Q8H -IV [facility] PRN Reason: Protocol Last Admin: 05/21/17 12:41 Dose: 120 mls/hr Insulin Aspart (Novolog Vial Sliding Scale -) 1 vial SQ ACHS [facility] PRN Reason: Protocol Last Admin: 05/21/17 11:24 Dose: Not Given Levothyroxine Sodium (Synthroid -) 50 mcg PO DAILY@0700 [facility] Last Admin: 05/21/17 06:18 Dose: 50 mcg Meclizine HCl (Antivert -) 12.5 mg PO Q6H PRN PRN Reason: VERTIGO Last Admin: 05/21/17 09:40 Dose: 12.5 mg Metoprolol Succinate (Toprol Xl -) 12.5 mg PO BID [facility] Last Admin: 05/21/17 09:41 Dose: Not Given Oxycodone HCl (Roxicodone -) 10 mg PO Q6H PRN PRN Reason: PAIN Last Admin: 05/21/17 12:42 Dose: 10 mg Pantoprazole Sodium (Protonix -) 40 mg PO DAILY [facility] Last Admin: 05/21/17 09:40 Dose: 40 mg Polyethylene Glycol (Miralax (For Daily Use) -) 17 gm PO DAILY [facility] Last Admin: 05/21/17 09:41 Dose: Not Given Quetiapine Fumarate (Seroquel -) 300 mg PO HS [facility] Last Admin: 05/20/17 21:40 Dose: 300 mg Senna (Senna -) 2 tab PO [facility] Last Admin: 05/20/17 21:36 Dose: 2 tab - Objective Vital Signs: Vital Signs Temperature 98.4 F 05/21/17 09:00 Pulse Rate 86 05/21/17 09:00 Respiratory Rate 20 05/21/17 09:00 Blood Pressure 94/55 05/21/17 09:00 O2 Sat by Pulse Oximetry (%) 98 05/21/17 09:00 Constitutional: Yes: No Distress, Calm Cardiovascular: Yes: Regular Rate and Rhythm Respiratory: Yes: Regular, CTA Bilaterally Gastrointestinal: Yes: Normal Bowel Sounds, Soft Musculoskeletal: Yes: WNL Extremities: Yes: WNL Neurological: Yes: Alert, Oriented Psychiatric: Yes: Alert, Oriented Labs: CBC, BMP 05/20/17 06:30 05/19/17 09:53 INR, PTT INR 1.10 (0.82-1.09) 05/13/17 06:00 Assessment/Plan patient with rt sided fracture now with uti and suicidal ideation and one to one patient still with symptoms cx have been send patient allergic to multiple medications allergies asked and noted what patient gets Problem List - Problems (1) Pelvic fracture Code(s): S32.9XXA - FRACTURE OF UNSP PARTS OF LUMBOSACRAL SPINE AND PELVIS, INIT Qualifiers: Encounter type: subsequent encounter Pelvic bone location: acetabulum Sublocation of acetabulum: posterior wall Fracture type: closed Fracture alignment: nondisplaced Laterality: right (2) Hx of half-way use of 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 Code(s): Z79.01 - [employer]OMOTIVE [employer]JECT [employer] (CURRENT) USE OF ANTICOAGULANTS (3) Bipolar disorder Code(s): F31.9 - BIPOLAR DISORDER, UNSPECIFIED Qualifiers: Active/Remission status: in full remission Most recent bipolar episode type : most recent episode depressed (4) 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 Code(s): E11.9 - TYPE 2 DIABETES MELLITUS WITHOUT COMPLICATIONS Qualifiers: 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 type: type 2 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 complication status: without complication (5) HTN (hypertension) Code(s): I10 - ESSENTIAL (PRIMARY) HYPERTENSION Qualifiers: Hypertension type: essential hypertension Qualified Code(s): I10 - Essential (primary) hypertension (6) Hyperlipidemia Code(s): E78.5 - HYPERLIPIDEMIA, UNSPECIFIED Qualifiers: Hyperlipidemia type: pure hypercholesterolemia Qualified Code(s): E78.00 - Pure hypercholesterolemia, unspecified; E78.0 - Pure hypercholesterolemia (7) ARVIND treated with BiPAP Code(s): G47.33 - OBSTRUCTIVE SLEEP APNEA (ADULT) (PEDIATRIC) (8) Auditory hallucinations Code(s): R44.0 - AUDITORY HALLUCINATIONS 9 UTI plan continue abx once patient finishes 5 days can stop if possible to get repeat urine cx so we can figure out if she still has infection rest as per primary team
--- NOTE | 2017-05-21 15:59 | PN ---
Teaching Attending Note Name of Resident: Deondre Moya ATTENDING PHYSICIAN STATEMENT I saw and evaluated the patient. I reviewed the resident's note and discussed the case with the resident. I agree with the resident's findings and plan as documented. SUBJECTIVE: no fever or chills. has R hip pain OBJECTIVE: NAD, awake , alert , and cooperative CV: RRR Lungs: CTAB Abd: soft, minimal TTP in suprapubic area , ND, NL BS. Ext: no edema , TTP over R groin . NL sensation in LE b/l ASSESSMENT AND PLAN: 51 y/o lady with h/o CAD, s/p NH, CVA/TIA, asthma, schizophrenia, HTN, and other medical problems who presented after a mechanical fall and was found to have R pelvic Fx 1- R acetabular Fx and R inferior pubic Ramus Fx. - No surgical intervention - cont pain control - PT 2- Auditory hallucinations with suicidality - 1:1 observation - cont bupropion - cont seroquel - cont prozac and Klonopin 3- UTI: with multiple allergies to ABx. - cont Aztreonam, day 4. d/w Dr. Baird, last day tomorrow . 4-h/o CAD and NH : - cont BB - not on ASA 5- H/o CVA: no h/o of Afib 6- Recent DVT as outpt 2 months ago, cont eliquis 5 BID HLOC cont to search for inpatient psych facility , difficult dispo , due to rehab needs . Cont PT in mean time, ambulation improved significantly today ( 40 feet with PT). hopefully will have no rehab needs in few days
--- NOTE | 2017-05-21 16:11 | PN ---
Physical Exam: SUBJECTIVE: Patient seen and examined. No acute events overnight. Pt refused morning labs. She complains of mild back and knee pain, but denies chest pain, SOB, abdominal pain, n/v/d/c, and dysuria. OBJECTIVE: Vital Signs Period Temp Pulse Resp BP Sys/Schultz Pulse Ox Last 24 Hr 97.8 F-98.8 F 72-94 20-20 94-141/53-78 98-99 GENERAL: middle aged female, alert, in no acute distress. HEENT: NC, AT LUNGS: Breath sounds equal, clear to auscultation bilaterally, no wheezes, no crackles, no accessory muscle use. HEART: Regular rate and rhythm, S1, S2 without murmur, rub or gallop. ABDOMEN: obese abdomen, soft, nontender, nondistended, normoactive bowel sounds , no guarding EXTREMITIES: no edema. R leg is externally rotated. NEUROLOGICAL: Normal speech, gait not observed. PSYCH: denies SI, HI, AH, and VH Laboratory Results - last 24 hr 05/20/17 05/20/17 05/20/17 11:20 16:26 21:50 POC Glucometer 88 110 130 05/21/17 05/21/17 06:17 11:22 POC Glucometer 100 123 Active Medications Generic Name Dose Route Start Last Admin Trade Name Winston PRN Reason Stop Dose Admin Albuterol Sulfate 2 puff 05/13/17 07:15 05/21/17 14:45 Ventolin Hfa Inhaler - IH Not Given Q4H [facility] Apixaban 5 mg 05/18/17 10:00 05/21/17 09:41 Eliquis - PO 5 mg BID [facility] Administration Atorvastatin Calcium 20 mg 05/13/17 22:00 05/20/17 21:50 Lipitor - PO 20 mg HS [facility] Administration Baclofen 10 mg 05/17/17 22:00 05/21/17 13:50 Lioresal - PO 10 mg TID [facility] Administration Benztropine Mesylate 1 mg 05/20/17 10:00 05/21/17 09:40 Cogentin - PO 1 mg DAILY [facility] Administration Budesonide/Formoterol Fumarate 1 puff 05/13/17 10:00 05/21/17 09:41 Symbicort 80/4.5mcg - IH 1 inh DAILY [facility] Administration Bupropion HCl 300 mg 05/17/17 10:00 05/21/17 09:41 Wellbutrin Xl - PO 300 mg DAILY [facility] Administration Clonazepam 1 mg 05/14/17 10:00 05/21/17 09:40 Klonopin - PO 1 mg BID [facility] Administration Divalproex Sodium 750 mg 05/14/17 22:00 05/20/17 21:38 Depakote - PO 750 mg HS [facility] Administration Docusate Sodium 300 mg 05/13/17 22:00 05/20/17 21:38 Colace - PO 300 mg HS [facility] Administration Ferrous Sulfate 325 mg 05/13/17 10:00 05/21/17 09:39 Feosol - PO 325 mg DAILY [facility] Administration Fluoxetine HCl 40 mg 05/14/17 10:00 05/21/17 09:40 Prozac - PO 40 mg DAILY [facility] Administration Gabapentin 300 mg 05/14/17 14:00 05/21/17 13:50 Neurontin - PO 300 mg TID [facility] Administration Aztreonam 1 gm in 10 mls @ 120 mls/hr 05/19/17 11:00 05/21/17 12:41 Azactam (Restricted To Id) - IVPUSH 120 mls/hr Q8H-IV [facility] Administration Protocol Insulin Aspart 1 vial 05/13/17 07:00 05/21/17 11:24 Novolog Vial Sliding Scale - SQ Not Given ACHS [facility] Protocol Levothyroxine Sodium 50 mcg 05/14/17 07:00 05/21/17 06:18 Synthroid - PO 50 mcg DAILY@0700 [facility] Administration Meclizine HCl 12.5 mg 05/13/17 02:46 05/21/17 09:40 Antivert - PO 12.5 mg Q6H PRN Administration VERTIGO Metoprolol Succinate 12.5 mg 05/13/17 22:00 05/21/17 09:41 Toprol Xl - PO Not Given BID [facility] Oxycodone HCl 10 mg 05/15/17 19:18 05/21/17 12:42 Roxicodone - PO 10 mg Q6H PRN Administration PAIN Pantoprazole Sodium 40 mg 05/13/17 10:00 05/21/17 09:40 Protonix - PO 40 mg DAILY [facility] Administration Polyethylene Glycol 17 gm 05/14/17 10:00 05/21/17 09:41 Miralax (For Daily Use) - PO Not Given DAILY [facility] Quetiapine Fumarate 300 mg 05/15/17 22:00 05/20/17 21:40 Seroquel - PO 300 mg HS [facility] Administration Senna 2 tab 05/13/17 22:00 05/20/17 21:36 Senna - PO 2 tab HS [facility] Administration ASSESSMENT/PLAN: 51F w/ hx of CAD s/p [place], CVA/TIA, asthma, DVT, schizophrenia, and HTN who presented after a mechanical fall and was found to have R acetabular and right inferior pubic ramus fracture. #R acetabular Fx and R inferior pubic Ramus Fx - no surgical intervention - continue pain control with oxycodone PRN - PT #Auditory hallucinations with suicidality - 1:1 observation - awaiting inpt psych consideration at [facility] - continue bupropion, seroquel, prozac, Klonopin, depakote #DM -continue ISS, gabapentin #UTI - multiple allergies to abx, abx were given before Ucx was sent -Ucx: contaminant. Repeat ordered. f/u -no further abdominal tenderness. No fever, no leukocytosis. - cont Aztreonam, day 4. Switch to nitrofurantoin once inpt bed available - monitor wbc count #asthma -continue symbicort and ventolin #hypothyroidism -continue synthroid #anemia -continue ferrous sulfate #HLD -continue lipitor #constipation -continue colace, miralax, senna #h/o CAD and [place] - cont toprol - not on ASA #H/o CVA: no h/o of Afib #DVT - occurred as outpt 2 months ago - cont eliquis 5 BID #FEN/ppx -not on fluids -no electrolyte labs today -diabetic diet -protonix 40 -eliquis 5 BID #Dispo -awaiting inpatient psych placement -Deondre Moya MD PGY1 Visit type - Emergency Visit Emergency Visit: Yes ED Registration Date: 05/12/17 Care time: The patient presented to the Emergency Department on the above date and was hospitalized for further evaluation of their emergent condition. - New Patient This patient is new to me today: No - Critical Care Critical Care patient: No
--- NOTE | 2017-05-21 19:36 | HOSP ---
Subjective - Review of Symptoms Events since last encounter: Pt c/o new onset chest pain on the Right and Left side of chest, radiating down the Left arm. Pt pointed to subclavicular area on both sides of chest as origin of pain. Pain is not reproducible on exam. Pain was exacerbated when pt became aggravated by her roommate. Pt reports a history of heart attack and stroke, endorsing that the current pain feels similar to those occasions. Pain is constant, described as a feeling of pressure, progressively worsening, rated 8/10. Physical Exam: GENERAL: AAOx3, NAD, calmly watching television with headphones when I entered the room CV: RRR, +S1/S2, no murmur LUNGS: CTAB AB: soft, nontender, nondistended EXTREMETIES: no edema Physical Examination Vital Signs: Vital Signs Temperature 97.8 F 05/21/17 14:03 Pulse Rate 94 H 05/21/17 14:03 Respiratory Rate 20 05/21/17 14:03 Blood Pressure 129/68 05/21/17 14:03 O2 Sat by Pulse Oximetry (%) 98 05/21/17 09:00 Labs: CBC, BMP 05/20/17 06:30 05/19/17 09:53 Hospitalist Encounter Assessment: A/P 51yo F with PMH of CAD, [place], CVA/TIA, htn, schizophrenia, presenting with new onset chest pain. - Suspicion for ACS is low. - f/u stat EKG - f/u stat trops Visit type - Emergency Visit Emergency Visit: Yes ED Registration Date: 05/12/17 Care time: The patient presented to the Emergency Department on the above date and was hospitalized for further evaluation of their emergent condition. - New Patient This patient is new to me today: Yes Date on this admission: 05/21/17 - Critical Care Critical Care patient: No
[2017-05-21] MEDS: DOCUSATE SODIUM 100 MG CAPSULE (FP) PO SCH (21:23)
[2017-05-21] MEDS: SENNOSIDES 8.6MG TABLET (FP) PO SCH (21:24)
[2017-05-21] MEDS: ATORVASTATIN CA 20 MG TABLET (FP) PO SCH (21:24)
[2017-05-21] MEDS: QUEtiapine FUMARATE 100 MG TABLET (FP) PO SCH (21:25)
[2017-05-21] MEDS: DIVALPROEX SODIUM 250 MG TABLET E.C. (FP) PO SCH (21:25)
[2017-05-22] MEDS ORDERED: PT OWN MED DRAWER 7, Y5N ONE ×5 (01:13→22:45)
[2017-05-22] MEDS: AZTREONAM 1 GRAM SYRINGE 1 GM/10 ML DISP.SYRIN IVPUSH SCH ×3 (01:20→17:28)
[2017-05-22] MEDS: ALBUTEROL SO4 18 GM HFA INHALER IH SCH ×4 (03:25→14:28)
[2017-05-22] MEDS: BACLOFEN 10 MG TABLET (FP) PO SCH ×3 (05:49→23:04)
[2017-05-22] MEDS: GABAPENTIN 300 MG CAPSULE (FP) PO SCH ×3 (05:49→23:03)
[2017-05-22] MEDS: oxyCODONE HCL 5 MG TABLET PO PRN ×3 (05:50→19:51)
[2017-05-22] MEDS: INSULIN SLIDING SCALE (NOVOLOG) 1 VIAL SQ SCH ×4 (06:00→23:05)
[2017-05-22] MEDS: LEVOTHYROXINE NA 100 MCG TABLET (FP) PO SCH (06:00)
[2017-05-22] MEDS: clonazePAM 0.5 MG TABLET PO SCH ×2 (10:15→23:03)
[2017-05-22] MEDS: FERROUS SO4 325 MG TABLET (FP) PO SCH (10:17)
[2017-05-22] MEDS: PANTOPRAZOLE 40 MG TABLET (FP) PO SCH (10:17)
[2017-05-22] MEDS: APIXABAN 5 MG TABLET PO SCH ×2 (10:17→23:04)
[2017-05-22] MEDS: FLUoxetine HCL 20 MG CAPSULE (FP) PO SCH (10:17)
[2017-05-22] MEDS: BUDESONIDE/FORMETEROL FUMARATE 80/4.5 mcg INHALER IH SCH (10:18)
[2017-05-22] MEDS: POLYETHYLENE GLYCOL 3350 119 GM BTL PO SCH (10:18)
[2017-05-22] MEDS: METOPROLOL SUCCINATE 25 MG TAB.SR.24H (FP) PO SCH ×2 (10:18→23:06)
[2017-05-22] MEDS: BENZTROPINE MESYLATE 1 MG TABLET (FP) PO SCH (10:18)
--- NOTE | 2017-05-22 11:19 | EKG ---
Test Reason : Blood Pressure : / mmHG Vent. Rate : 084 BPM Atrial Rate : 084 BPM P-R Int : 144 ms QRS Dur : 084 ms QT Int : 396 ms P-R-T Axes : 036 011 052 degrees QTc Int : 467 ms NORMAL SINUS RHYTHM NORMAL ECG WHEN COMPARED WITH ECG OF 13-MAY-2017 00:34, NO SIGNIFICANT CHANGE WAS FOUND Confirmed by ANDRÉS MUNOZ MD ([id number]) on 05/22/2017 11:19:26 AM Referred By: Confirmed By:ANDRÉS MUNOZ MD
--- NOTE | 2017-05-22 11:37 | PN ---
Progress Note, Physician History of Present Illness: Resting comfortably, remains on 1:1 observation for suicidal ideations. Atypical chest discomfort earlier since resolved, no EKG changes. - Current Medication List Current Medications: Active Medications Albuterol Sulfate (Ventolin Hfa Inhaler -) 2 puff IH Q4H [facility] Last Admin: 05/22/17 11:10 Dose: Not Given Apixaban (Eliquis -) 5 mg PO BID [facility] Last Admin: 05/22/17 10:17 Dose: 5 mg Atorvastatin Calcium (Lipitor -) 20 mg PO HS [facility] Last Admin: 05/21/17 21:24 Dose: 20 mg Baclofen (Lioresal -) 10 mg PO TID [facility] Last Admin: 05/22/17 05:49 Dose: 10 mg Benztropine Mesylate (Cogentin -) 1 mg PO DAILY [facility] Last Admin: 05/22/17 10:18 Dose: 1 mg Budesonide/Formoterol Fumarate (Symbicort 80/4.5mcg -) 1 puff IH DAILY [facility] Last Admin: 05/22/17 10:18 Dose: 1 inh Bupropion HCl (Wellbutrin Xl -) 300 mg PO DAILY [facility] Last Admin: 05/22/17 10:18 Dose: 300 mg Clonazepam (Klonopin -) 1 mg PO BID [facility] Last Admin: 05/22/17 10:15 Dose: 1 mg Divalproex Sodium (Depakote -) 750 mg PO HS [facility] Last Admin: 05/21/17 21:25 Dose: 750 mg Docusate Sodium (Colace -) 300 mg PO HS [facility] Last Admin: 05/21/17 21:23 Dose: 300 mg Ferrous Sulfate (Feosol -) 325 mg PO DAILY [facility] Last Admin: 05/22/17 10:17 Dose: 325 mg Fluoxetine HCl (Prozac -) 40 mg PO DAILY [facility] Last Admin: 05/22/17 10:17 Dose: 40 mg Gabapentin (Neurontin -) 300 mg PO TID [facility] Last Admin: 05/22/17 05:49 Dose: 300 mg Aztreonam (Azactam (Restricted To Id) -) 1 gm in 10 mls @ 120 mls/hr IVPUSH Q8H -IV [facility] PRN Reason: Protocol Stop: 05/22/17 23:59 Last Admin: 05/22/17 10:15 Dose: 120 mls/hr Insulin Aspart (Novolog Vial Sliding Scale -) 1 vial SQ ACHS [facility] PRN Reason: Protocol Last Admin: 05/22/17 11:10 Dose: Not Given Levothyroxine Sodium (Synthroid -) 50 mcg PO DAILY@0700 [facility] Last Admin: 05/22/17 06:00 Dose: 50 mcg Meclizine HCl (Antivert -) 12.5 mg PO Q6H PRN PRN Reason: VERTIGO Last Admin: 05/21/17 09:40 Dose: 12.5 mg Metoprolol Succinate (Toprol Xl -) 12.5 mg PO BID [facility] Last Admin: 05/22/17 10:18 Dose: Not Given Oxycodone HCl (Roxicodone -) 10 mg PO Q6H PRN PRN Reason: PAIN Last Admin: 05/22/17 05:50 Dose: 10 mg Pantoprazole Sodium (Protonix -) 40 mg PO DAILY [facility] Last Admin: 05/22/17 10:17 Dose: 40 mg Polyethylene Glycol (Miralax (For Daily Use) -) 17 gm PO DAILY [facility] Last Admin: 05/22/17 10:18 Dose: Not Given Quetiapine Fumarate (Seroquel -) 300 mg PO HS [facility] Last Admin: 05/21/17 21:25 Dose: 300 mg Senna (Senna -) 2 tab PO [facility] Last Admin: 05/21/17 21:24 Dose: 2 tab - Objective Vital Signs: Vital Signs Temperature 97.9 F 05/22/17 09:00 Pulse Rate 88 05/22/17 09:00 Respiratory Rate 20 05/22/17 09:00 Blood Pressure 94/55 05/22/17 09:00 O2 Sat by Pulse Oximetry (%) 97 05/22/17 09:00 Constitutional: Yes: No Distress, Calm Neck: Yes: Supple Cardiovascular: Yes: Regular Rate and Rhythm Respiratory: Yes: Regular, Diminished Gastrointestinal: Yes: Normal Bowel Sounds, Soft, Abdomen, Obese Edema: No Labs: CBC, BMP 05/20/17 06:30 05/19/17 09:53 INR, PTT INR 1.10 (0.82-1.09) 05/13/17 06:00 - ....Imaging EKG: Report Reviewed (NSR without ST-T changes) Problem List - Problems (1) Pelvic fracture Code(s): S32.9XXA - FRACTURE OF UNSP PARTS OF LUMBOSACRAL SPINE AND PELVIS, INIT Qualifiers: Encounter type: subsequent encounter Pelvic bone location: acetabulum Sublocation of acetabulum: posterior wall Fracture type: closed Fracture alignment: nondisplaced Laterality: right (2) Hx of 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 use of 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 Code(s): Z79.01 - PANMAN (CURRENT) USE OF ANTICOAGULANTS (3) Bipolar disorder Code(s): F31.9 - BIPOLAR DISORDER, UNSPECIFIED Qualifiers: Active/Remission status: in full remission Most recent bipolar episode type : most recent episode depressed (4) 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 Code(s): E11.9 - TYPE 2 DIABETES MELLITUS WITHOUT COMPLICATIONS Qualifiers: 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 type: type 2 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 complication status: without complication (5) HTN (hypertension) Code(s): I10 - ESSENTIAL (PRIMARY) HYPERTENSION Qualifiers: Hypertension type: essential hypertension Qualified Code(s): I10 - Essential (primary) hypertension (6) Hyperlipidemia Code(s): E78.5 - HYPERLIPIDEMIA, UNSPECIFIED Qualifiers: Hyperlipidemia type: pure hypercholesterolemia Qualified Code(s): E78.00 - Pure hypercholesterolemia, unspecified; E78.0 - Pure hypercholesterolemia (7) ARVIND treated with BiPAP Code(s): G47.33 - OBSTRUCTIVE SLEEP APNEA (ADULT) (PEDIATRIC) (8) Auditory hallucinations Code(s): R44.0 - AUDITORY HALLUCINATIONS (9) Suicidal ideations Code(s): R45.851 - SUICIDAL IDEATIONS (10) DVT (deep venous thrombosis) Code(s): I82.409 - ACUTE EMBOLISM AND THOMBOS UNSP DEEP VN UNSP LOWER EXTREMITY Assessment/Plan 1. Non-displaced Fracture of right acetabulum 2. CAD h/o NH 3. Hypothyroidism 4. Polysubstance abuse, Bipolar disorder and schizophrenia 5. COPD 6. CVA/TIA 7. Migraine headache 8. Suicidal ideation now on 1:1 PLAN: 1. Non-surgical management as per Orthopedics 2. Continue Metoprolol ER and Atorvastatin. 3. Maintain on Eliquis for DVT prophylaxis, but would need to clarify DVT prophylactic dose ? 2.5 mg BID 4. Continue analgesics and eventual psych inpatient care
--- NOTE | 2017-05-22 15:47 | PN ---
Progress Note, Physician History of Present Illness: stable no new issues patient still c/o of dysuria pain still in the leg - Current Medication List Current Medications: Active Medications Albuterol Sulfate (Ventolin Hfa Inhaler -) 2 puff IH Q4H [facility] Last Admin: 05/22/17 14:28 Dose: Not Given Apixaban (Eliquis -) 5 mg PO BID [facility] Last Admin: 05/22/17 10:17 Dose: 5 mg Atorvastatin Calcium (Lipitor -) 20 mg PO HS [facility] Last Admin: 05/21/17 21:24 Dose: 20 mg Baclofen (Lioresal -) 10 mg PO TID [facility] Last Admin: 05/22/17 13:19 Dose: 10 mg Benztropine Mesylate (Cogentin -) 1 mg PO DAILY [facility] Last Admin: 05/22/17 10:18 Dose: 1 mg Budesonide/Formoterol Fumarate (Symbicort 80/4.5mcg -) 1 puff IH DAILY [facility] Last Admin: 05/22/17 10:18 Dose: 1 inh Bupropion HCl (Wellbutrin Xl -) 300 mg PO DAILY [facility] Last Admin: 05/22/17 10:18 Dose: 300 mg Clonazepam (Klonopin -) 1 mg PO BID [facility] Last Admin: 05/22/17 10:15 Dose: 1 mg Divalproex Sodium (Depakote -) 750 mg PO HS [facility] Last Admin: 05/21/17 21:25 Dose: 750 mg Docusate Sodium (Colace -) 300 mg PO HS [facility] Last Admin: 05/21/17 21:23 Dose: 300 mg Ferrous Sulfate (Feosol -) 325 mg PO DAILY [facility] Last Admin: 05/22/17 10:17 Dose: 325 mg Fluoxetine HCl (Prozac -) 40 mg PO DAILY [facility] Last Admin: 05/22/17 10:17 Dose: 40 mg Gabapentin (Neurontin -) 300 mg PO TID [facility] Last Admin: 05/22/17 13:19 Dose: 300 mg Aztreonam (Azactam (Restricted To Id) -) 1 gm in 10 mls @ 120 mls/hr IVPUSH Q8H -IV [facility] PRN Reason: Protocol Stop: 05/22/17 23:59 Last Admin: 05/22/17 10:15 Dose: 120 mls/hr Insulin Aspart (Novolog Vial Sliding Scale -) 1 vial SQ ACHS [facility] PRN Reason: Protocol Last Admin: 05/22/17 11:10 Dose: Not Given Levothyroxine Sodium (Synthroid -) 50 mcg PO DAILY@0700 [facility] Last Admin: 05/22/17 06:00 Dose: 50 mcg Meclizine HCl (Antivert -) 12.5 mg PO Q6H PRN PRN Reason: VERTIGO Last Admin: 05/21/17 09:40 Dose: 12.5 mg Metoprolol Succinate (Toprol Xl -) 12.5 mg PO BID [facility] Last Admin: 05/22/17 10:18 Dose: Not Given Oxycodone HCl (Roxicodone -) 10 mg PO Q6H PRN PRN Reason: PAIN Last Admin: 05/22/17 11:57 Dose: 10 mg Pantoprazole Sodium (Protonix -) 40 mg PO DAILY [facility] Last Admin: 05/22/17 10:17 Dose: 40 mg Polyethylene Glycol (Miralax (For Daily Use) -) 17 gm PO DAILY [facility] Last Admin: 05/22/17 10:18 Dose: Not Given Quetiapine Fumarate (Seroquel -) 300 mg PO HS [facility] Last Admin: 05/21/17 21:25 Dose: 300 mg Senna (Senna -) 2 tab PO [facility] Last Admin: 05/21/17 21:24 Dose: 2 tab - Objective Vital Signs: Vital Signs Temperature 98.4 F 05/22/17 15:27 Pulse Rate 95 H 05/22/17 15:27 Respiratory Rate 20 05/22/17 15:27 Blood Pressure 125/73 05/22/17 15:27 O2 Sat by Pulse Oximetry (%) 97 05/22/17 09:00 Constitutional: Yes: Calm, Mild Distress Eyes: Yes: Conjunctiva Clear Cardiovascular: Yes: Regular Rate and Rhythm Respiratory: Yes: Regular, CTA Bilaterally Gastrointestinal: Yes: Normal Bowel Sounds, Soft Musculoskeletal: Yes: WNL Extremities: Yes: WNL Neurological: Yes: Alert, Oriented Psychiatric: Yes: Alert, Oriented Labs: CBC, BMP 05/20/17 06:30 05/19/17 09:53 INR, PTT INR 1.10 (0.82-1.09) 05/13/17 06:00 Assessment/Plan patient with rt sided fracture now with uti and suicidal ideation and one to one patient still with symptoms cx have been send patient allergic to multiple medications allergies asked and noted what patient gets Problem List - Problems (1) Pelvic fracture Code(s): S32.9XXA - FRACTURE OF UNSP PARTS OF LUMBOSACRAL SPINE AND PELVIS, INIT Qualifiers: Encounter type: subsequent encounter Pelvic bone location: acetabulum Sublocation of acetabulum: posterior wall Fracture type: closed Fracture alignment: nondisplaced Laterality: right (2) Hx of terminal gauger use of 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 Code(s): Z79.01 - SUSTAINABLE AGRICULTURE SPECIALIST (CURRENT) USE OF ANTICOAGULANTS (3) Bipolar disorder Code(s): F31.9 - BIPOLAR DISORDER, UNSPECIFIED Qualifiers: Active/Remission status: in full remission Most recent bipolar episode type : most recent episode depressed (4) 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 Code(s): E11.9 - TYPE 2 DIABETES MELLITUS WITHOUT COMPLICATIONS Qualifiers: 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 type: type 2 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 complication status: without complication (5) HTN (hypertension) Code(s): I10 - ESSENTIAL (PRIMARY) HYPERTENSION Qualifiers: Hypertension type: essential hypertension Qualified Code(s): I10 - Essential (primary) hypertension (6) Hyperlipidemia Code(s): E78.5 - HYPERLIPIDEMIA, UNSPECIFIED Qualifiers: Hyperlipidemia type: pure hypercholesterolemia Qualified Code(s): E78.00 - Pure hypercholesterolemia, unspecified; E78.0 - Pure hypercholesterolemia (7) ARVIND treated with BiPAP Code(s): G47.33 - OBSTRUCTIVE SLEEP APNEA (ADULT) (PEDIATRIC) (8) Auditory hallucinations Code(s): R44.0 - AUDITORY HALLUCINATIONS 9 UTI plan stopped abx hydration pain mgmt rest as per primary
--- NOTE | 2017-05-22 16:22 | PN ---
Mental Health Exam - Mental Status Exam Alert and Oriented to: Time, Place, Person Cognitive Function: Grossly Intact Patient Appearance: Well Groomed Mood: Apathetic, Apprehensive ("i have no strength in my legs". ) Affect: Appropriate, Normal Range Patient Behavior: Passive, Appropriate, Cooperative Speech Pattern: Clear, Perseverating ("i want to go home at this time, if i had the strength". ) Voice Loudness: Normal Thought Process: Intact, Goal Oriented Thought Disorder: Not Present Hallucinations: None Suicidal Ideation: None, No Plan Homicidal Ideation: None, No Plan Insight/Judgement: Fair Sleep: Fair Appetite: Fair Muscle strength/Tone: Mild Hypotonicity Gait/Station: Deferred (Client is seen at bedside on Constant observaion with a sitter staff. She is intently watching her favorite Tv show. She denies SI?HI at present.Has no plan at present.She stated, "i am too weak, my legs, i am in pain and unable to walk".) Additional Comments: wellbutrin xl at present. See Mental healt status update. Plan.. may discontinue Constant awareness for suicidal ideation. .....Spoke with PAVEL Bolaños covering 7[address] A re client made coments last night that "i will get out of bed to help u", as roomate was calling [employer] for assistance. ...Client is not currently suicidal, without a plan to harm self.
--- NOTE | 2017-05-22 16:46 | PN ---
Physical Exam: SUBJECTIVE: Patient seen and examined. Pt complained of chest pain overnight. EKG was NSR without signs of ischemia. She refused nurse to draw labs. This am, pt states that her knee is still causing her pain, but she denies chest pain at this time. She denies all other complaints. OBJECTIVE: Vital Signs Period Temp Pulse Resp BP Sys/Schultz Pulse Ox Last 24 Hr 97.5 F-98.5 F 71-95 20-20 94-125/55-73 96-97 GENERAL: middle aged female, alert, in no acute distress. HEENT: NC, AT LUNGS: Breath sounds equal, clear to auscultation bilaterally, no wheezes, no crackles, no accessory muscle use. HEART: Regular rate and rhythm, S1, S2 without murmur, rub or gallop. ABDOMEN: obese abdomen, soft, nontender, nondistended, normoactive bowel sounds , no guarding EXTREMITIES: no edema. R leg is externally rotated. NEUROLOGICAL: Normal speech, gait not observed. PSYCH: denies SI, HI, AH, and VH Laboratory Results - last 24 hr 05/21/17 05/22/17 05/22/17 21:23 05:52 11:08 POC Glucometer 162 93 130 05/22/17 16:20 POC Glucometer 145 Active Medications Generic Name Dose Route Start Last Admin Trade Name Winston PRN Reason Stop Dose Admin Albuterol Sulfate 2 puff 05/13/17 07:15 05/22/17 14:28 Ventolin Hfa Inhaler - IH Not Given Q4H BHARAT Apixaban 5 mg 05/18/17 10:00 05/22/17 10:17 Eliquis - PO 5 mg BID BHARAT Administration Atorvastatin Calcium 20 mg 05/13/17 22:00 05/21/17 21:24 Lipitor - PO 20 mg HS BHARAT Administration Baclofen 10 mg 05/17/17 22:00 05/22/17 13:19 Lioresal - PO 10 mg TID [facility]AT Administration Benztropine Mesylate 1 mg 05/20/17 10:00 05/22/17 10:18 Cogentin - PO 1 mg DAILY [facility]ARAT Administration Budesonide/Formoterol Fumarate 1 puff 05/13/17 10:00 05/22/17 10:18 Symbicort 80/4.5mcg - IH 1 inh DAILY BHARAT Administration Bupropion HCl 300 mg 05/17/17 10:00 05/22/17 10:18 Wellbutrin Xl - PO 300 mg DAILY [facility]AT Administration Clonazepam 1 mg 05/14/17 10:00 05/22/17 10:15 Klonopin - PO 1 mg BID BH[facility]AT Administration Divalproex Sodium 750 mg 05/14/17 22:00 05/21/17 21:25 Depakote - PO 750 mg HS BHARAT Administration Docusate Sodium 300 mg 05/13/17 22:00 05/21/17 21:23 Colace - PO 300 mg HS [facility]AT Administration Ferrous Sulfate 325 mg 05/13/17 10:00 05/22/17 10:17 Feosol - PO 325 mg DAILY [facility] Administration Fluoxetine HCl 40 mg 05/14/17 10:00 05/22/17 10:17 Prozac - PO 40 mg DAILY [facility] Administration Gabapentin 300 mg 05/14/17 14:00 05/22/17 13:19 Neurontin - PO 300 mg TID [facility] Administration Aztreonam 1 gm in 10 mls @ 120 mls/hr 05/19/17 11:00 05/22/17 10:15 Azactam (Restricted To Id) - IVPUSH 05/22/17 23:59 120 mls/hr Q8H-IV [facility]ARAT Administration Protocol Insulin Aspart 1 vial 05/13/17 07:00 05/22/17 16:21 Novolog Vial Sliding Scale - SQ Not Given ACHS BHARAT Protocol Levothyroxine Sodium 50 mcg 05/14/17 07:00 05/22/17 06:00 Synthroid - PO 50 mcg DAILY@0700 [facility] Administration Meclizine HCl 12.5 mg 05/13/17 02:46 05/21/17 09:40 Antivert - PO 12.5 mg Q6H PRN Administration VERTIGO Metoprolol Succinate 12.5 mg 05/13/17 22:00 05/22/17 10:18 Toprol Xl - PO Not Given BID [facility]ARAT Oxycodone HCl 10 mg 05/15/17 19:18 05/22/17 11:57 Roxicodone - PO 10 mg Q6H PRN Administration PAIN Pantoprazole Sodium 40 mg 05/13/17 10:00 05/22/17 10:17 Protonix - PO 40 mg DAILY [facility]AT Administration Polyethylene Glycol 17 gm 05/14/17 10:00 05/22/17 10:18 Miralax (For Daily Use) - PO Not Given DAILY [facility] Quetiapine Fumarate 300 mg 05/15/17 22:00 05/21/17 21:25 Seroquel - PO 300 mg HS [facility] Administration Senna 2 tab 05/13/17 22:00 05/21/17 21:24 Senna - PO 2 tab HS [facility] Administration ASSESSMENT/PLAN: 51F w/ hx of CAD s/p [place], CVA/TIA, asthma, DVT, schizophrenia, and HTN who presented after a mechanical fall and was found to have R acetabular and right inferior pubic ramus fracture. #R acetabular Fx and R inferior pubic Ramus Fx - no surgical intervention - continue pain control with oxycodone PRN - PT #Auditory hallucinations with suicidality - 1:1 observation - psych re-evaluated pt and determined that pt is no longer acutely suicidal - continue bupropion, seroquel, prozac, Klonopin, depakote #DM -continue ISS, gabapentin #UTI - multiple allergies to abx, abx were given before Ucx was sent -f/u Ucx -No fever, no leukocytosis. - cont Aztreonam, day 5, last day - monitor wbc count #asthma -continue symbicort and ventolin #hypothyroidism -continue synthroid #anemia -continue ferrous sulfate #HLD -continue lipitor #constipation -continue colace, miralax, senna #h/o CAD and OK - cont toprol - not on ASA #H/o CVA: no h/o of Afib #DVT - occurred as outpt 2 months ago - cont eliquis 5 BID #FEN/ppx -not on fluids -no electrolyte labs today -diabetic diet -protonix 40 -eliquis 5 BID #Dispo -medically stable for discharge. Pt no longer suicidal per psych, so pt can be discharged to any SNF. -Deondre Moya MD PGY1 Visit type - Emergency Visit Emergency Visit: Yes ED Registration Date: 05/12/17 Care time: The patient presented to the Emergency Department on the above date and was hospitalized for further evaluation of their emergent condition. - New Patient This patient is new to me today: No - Critical Care Critical Care patient: No
--- NOTE | 2017-05-22 19:47 | PN ---
Teaching Attending Note Name of Resident: Deondre Moya ATTENDING PHYSICIAN STATEMENT I saw and evaluated the patient. I reviewed the resident's note and discussed the case with the resident. I agree with the resident's findings and plan as documented. SUBJECTIVE: Patient is lying in bed, does not want to talk, making no eye contacts. OBJECTIVE: Vital Signs Temperature 98.3 F 05/22/17 18:00 Pulse Rate 103 H 05/22/17 18:00 Respiratory Rate 18 05/22/17 18:00 Blood Pressure 114/62 05/22/17 18:00 O2 Sat by Pulse Oximetry (%) 97 05/22/17 09:00 CBCD WBC 7.2 K/mm3 (4.0-10.0) 05/20/17 06:30 RBC 3.98 M/mm3 (3.60-5.2) 05/20/17 06:30 Hgb 11.4 GM/dL (10.7-15.3) 05/20/17 06:30 Hct 33.7 % (32.4-45.2) 05/20/17 06:30 MCV 84.6 fl (80-96) 05/20/17 06:30 MCHC 34.0 g/dl (32.0-36.0) 05/20/17 06:30 RDW 16.1 % (11.6-15.6) H 05/20/17 06:30 Plt Count 171 K/MM3 (134-434) D 05/20/17 06:30 MPV 10.6 fl (7.5-11.1) 05/20/17 06:30 CMP Sodium 140 mmol/L (136-145) 05/19/17 09:53 Potassium 4.5 mmol/L (3.5-5.1) 05/19/17 09:53 Chloride 105 mmol/L (98-107) 05/19/17 09:53 Carbon Dioxide 28 mmol/L (21-32) 05/19/17 09:53 Anion Gap 7 (8-16) L 05/19/17 09:53 BUN 25 mg/dL (7-18) H 05/19/17 09:53 Creatinine 1.0 mg/dL (0.55-1.02) 05/19/17 09:53 Creat Clearance w eGFR 47.55 (>60) 05/13/17 06:00 Random Glucose 110 mg/dL (74-106) H D 05/19/17 09:53 Calcium 8.9 mg/dL (8.5-10.1) 05/19/17 09:53 Total Bilirubin 0.7 mg/dL (0.2-1.0) D 05/13/17 06:00 AST 10 U/L (15-37) L D 05/13/17 06:00 ALT 15 U/L (12-78) 05/13/17 06:00 Alkaline Phosphatase 99 U/L (45-117) 05/13/17 06:00 Total Protein 7.0 g/dl (6.4-8.2) 05/13/17 06:00 Albumin 3.5 g/dl (3.4-5.0) 05/13/17 06:00 Current Medications Generic Name Dose Route Start Last Admin Trade Name Freq PRN Reason Stop Dose Admin Albuterol Sulfate 2 puff 05/13/17 07:15 05/22/17 14:28 Ventolin Hfa Inhaler - IH Not Given Q4H BHARAT Apixaban 5 mg 05/18/17 10:00 05/22/17 10:17 Eliquis - PO 5 mg BID BHARAT Administration Atorvastatin Calcium 20 mg 05/13/17 22:00 05/21/17 21:24 Lipitor - PO 20 mg HS BHARAT Administration Baclofen 10 mg 05/17/17 22:00 05/22/17 13:19 Lioresal - PO 10 mg TID BHARAT Administration Benztropine Mesylate 1 mg 05/20/17 10:00 05/22/17 10:18 Cogentin - PO 1 mg DAILY BHARAT Administration Budesonide/Formoterol Fumarate 1 puff 05/13/17 10:00 05/22/17 10:18 Symbicort 80/4.5mcg - IH 1 inh DAILY BHARAT Administration Bupropion HCl 300 mg 05/17/17 10:00 05/22/17 10:18 Wellbutrin Xl - PO 300 mg DAILY BHARAT Administration Clonazepam 1 mg 05/14/17 10:00 05/22/17 10:15 Klonopin - PO 1 mg BID BHARAT Administration Divalproex Sodium 750 mg 05/14/17 22:00 05/21/17 21:25 Depakote - PO 750 mg HS BHARAT Administration Docusate Sodium 300 mg 05/13/17 22:00 05/21/17 21:23 Colace - PO 300 mg HS BHARAT Administration Ferrous Sulfate 325 mg 05/13/17 10:00 05/22/17 10:17 Feosol - PO 325 mg DAILY BHARAT Administration Fluoxetine HCl 40 mg 05/14/17 10:00 05/22/17 10:17 Prozac - PO 40 mg DAILY BHARAT Administration Gabapentin 300 mg 05/14/17 14:00 05/22/17 13:19 Neurontin - PO 300 mg TID BHARAT Administration Aztreonam 1 gm in 10 mls @ 120 mls/hr 05/19/17 11:00 05/22/17 17:28 Azactam (Restricted To Id) - IVPUSH 05/22/17 23:59 120 mls/hr Q8H-IV BHARAT Administration Protocol Insulin Aspart 1 vial 05/13/17 07:00 05/22/17 16:21 Novolog Vial Sliding Scale - SQ Not Given ACHS BHARAT Protocol Levothyroxine Sodium 50 mcg 05/14/17 07:00 05/22/17 06:00 Synthroid - PO 50 mcg DAILY@0700 [facility]AT Administration Meclizine HCl 12.5 mg 05/13/17 02:46 05/21/17 09:40 Antivert - PO 12.5 mg Q6H PRN Administration VERTIGO Metoprolol Succinate 12.5 mg 05/13/17 22:00 05/22/17 10:18 Toprol Xl - PO Not Given BID BHARAT Oxycodone HCl 10 mg 05/15/17 19:18 05/22/17 11:57 Roxicodone - PO 10 mg Q6H PRN Administration PAIN Pantoprazole Sodium 40 mg 05/13/17 10:00 05/22/17 10:17 Protonix - PO 40 mg DAILY BHARAT Administration Polyethylene Glycol 17 gm 05/14/17 10:00 05/22/17 10:18 Miralax (For Daily Use) - PO Not Given DAILY BHARAT Quetiapine Fumarate 300 mg 05/15/17 22:00 05/21/17 21:25 Seroquel - PO 300 mg HS BHARAT Administration Senna 2 tab 05/13/17 22:00 05/21/17 21:24 Senna - PO 2 tab HS BHARAT Administration Home Medications Medication Instructions Recorded Albuterol Sulfate Inhaler - 1 puff IH Q4H 03/15/17 [Ventolin HFA Inhaler -] Benztropine Mesylate [Cogentin -] 1 mg PO DAILY 03/15/17 Budesonide/Formeterol Fumarate 1 inh PO DAILY 03/15/17 [SYMBICORT 80/4.5mcg -] Bupropion HCl [Bupropion HCl Sr] 400 mg PO DAILY 03/15/17 Clonazepam [Klonopin] 1 mg PO BID 03/15/17 Docusate Sodium [Colace -] 300 mg PO HS 03/15/17 Ferrous Sulfate 325 mg PO DAILY 03/15/17 Furosemide [Lasix] 40 mg PO DAILY 03/15/17 Gabapentin [Neurontin] 300 mg PO TID 03/15/17 Metoprolol Succinate [Toprol XL -] 12.5 mg PO BID 03/15/17 Morphine *Sr* [MS Contin -] 15 mg PO Q6H 03/15/17 Nitroglycerin [Nitrostat] 0.6 mg SL PRN PRN 03/15/17 Polyethylene Glycol 3350 [Miralax 17 gm PO DAILY 03/15/17 119 gm Btl -] Quetiapine Fumarate [Seroquel] 300 tab PO HS 03/15/17 Sennosides [Senna -] 2 tab PO HS 03/15/17 Simvastatin [Zocor -] 40 mg PO HS 03/15/17 Apixaban [Eliquis] 5 mg PO BID 03/16/17 Divalproex [Depakote -] 750 mg PO HS 03/16/17 Levothyroxine [Synthroid -] 50 mcg PO DAILY 03/16/17 Pantoprazole Sodium [Protonix] 40 mg PO DAILY 03/16/17 Fluoxetine HCl [Prozac -] 40 mg PO DAILY 04/24/17 Metformin HCl [Glucophage -] 500 mg PO BID 04/24/17 Tizanidine HCl [Zanaflex] 2 mg PO TID PRN 05/13/17 PE: refused physical exam. ASSESSMENT AND PLAN: Patient is a 51 y/o lady with h/o CAD, s/p [place], CVA/TIA, asthma, schizophrenia, HTN, who presented after a mechanical fall and was found to have R pelvic Fx # Acute rihgt acetabular Fx and Right inferior pubic Ramus Fx. No surgical intervention as per ortho. PT continue, pain meds. prn # Auditory hallucinations with suicidality , will get psych. to see her for further assessment , continue Observation 1:1, cont bupropion , seroquel, prozac and Klonopin as per her home meds. # UTI: with multiple allergies to ABx. last day of Aztreonam is today .completed 5 days of IV Abx. as per discussion with Dr. Baird. #h/o CAD and SD : cont BB , not on ASA # H/o CVA: no h/o of Afib # Recent DVT as outpt 2 months ago, cont eliquis 5 BID
[2017-05-22] MEDS: SENNOSIDES 8.6MG TABLET (FP) PO SCH (23:02)
[2017-05-22] MEDS: DOCUSATE SODIUM 100 MG CAPSULE (FP) PO SCH (23:03)
[2017-05-22] MEDS: ATORVASTATIN CA 20 MG TABLET (FP) PO SCH (23:04)
[2017-05-22] MEDS: DIVALPROEX SODIUM 250 MG TABLET E.C. (FP) PO SCH (23:05)
[2017-05-22] MEDS: QUEtiapine FUMARATE 100 MG TABLET (FP) PO SCH (23:06)
[2017-05-23] MEDS: oxyCODONE HCL 5 MG TABLET PO PRN ×2 (02:30→19:08)
[2017-05-23] MEDS: BACLOFEN 10 MG TABLET (FP) PO SCH ×3 (06:21→21:47)
[2017-05-23] MEDS: INSULIN SLIDING SCALE (NOVOLOG) 1 VIAL SQ SCH ×4 (06:21→21:48)
[2017-05-23] MEDS: LEVOTHYROXINE NA 100 MCG TABLET (FP) PO SCH (06:22)
[2017-05-23] MEDS: GABAPENTIN 300 MG CAPSULE (FP) PO SCH ×3 (06:22→21:47)
--- NOTE | 2017-05-23 08:45 | PN ---
Teaching Attending Note Name of Resident: Deondre Moya ATTENDING PHYSICIAN STATEMENT I saw and evaluated the patient. I reviewed the resident's note and discussed the case with the resident. I agree with the resident's findings and plan as documented. SUBJECTIVE: Patient is feeling better with no acute distress. Patient denies any suicidal ideation. OBJECTIVE: Vital Signs Temperature 97.6 F 05/23/17 06:00 Pulse Rate 84 05/23/17 06:00 Respiratory Rate 18 05/23/17 06:00 Blood Pressure 109/75 05/23/17 06:00 O2 Sat by Pulse Oximetry (%) 95 05/22/17 19:54 CBCD WBC 7.2 K/mm3 (4.0-10.0) 05/20/17 06:30 RBC 3.98 M/mm3 (3.60-5.2) 05/20/17 06:30 Hgb 11.4 GM/dL (10.7-15.3) 05/20/17 06:30 Hct 33.7 % (32.4-45.2) 05/20/17 06:30 MCV 84.6 fl (80-96) 05/20/17 06:30 MCHC 34.0 g/dl (32.0-36.0) 05/20/17 06:30 RDW 16.1 % (11.6-15.6) H 05/20/17 06:30 Plt Count 171 K/MM3 (134-434) D 05/20/17 06:30 MPV 10.6 fl (7.5-11.1) 05/20/17 06:30 CMP Sodium 140 mmol/L (136-145) 05/19/17 09:53 Potassium 4.5 mmol/L (3.5-5.1) 05/19/17 09:53 Chloride 105 mmol/L (98-107) 05/19/17 09:53 Carbon Dioxide 28 mmol/L (21-32) 05/19/17 09:53 Anion Gap 7 (8-16) L 05/19/17 09:53 BUN 25 mg/dL (7-18) H 05/19/17 09:53 Creatinine 1.0 mg/dL (0.55-1.02) 05/19/17 09:53 Creat Clearance w eGFR 47.55 (>60) 05/13/17 06:00 Random Glucose 110 mg/dL (74-106) H D 05/19/17 09:53 Calcium 8.9 mg/dL (8.5-10.1) 05/19/17 09:53 Total Bilirubin 0.7 mg/dL (0.2-1.0) D 05/13/17 06:00 AST 10 U/L (15-37) L D 05/13/17 06:00 ALT 15 U/L (12-78) 05/13/17 06:00 Alkaline Phosphatase 99 U/L (45-117) 05/13/17 06:00 Total Protein 7.0 g/dl (6.4-8.2) 05/13/17 06:00 Albumin 3.5 g/dl (3.4-5.0) 05/13/17 06:00 Current Medications Generic Name Dose Route Start Last Admin Trade Name Freq PRN Reason Stop Dose Admin Albuterol Sulfate 2 puff 05/13/17 07:15 05/22/17 14:28 Ventolin Hfa Inhaler - IH Not Given Q4H BHARAT Apixaban 5 mg 05/18/17 10:00 05/22/17 23:04 Eliquis - PO 5 mg BID BHARAT Administration Atorvastatin Calcium 20 mg 05/13/17 22:00 05/22/17 23:04 Lipitor - PO 20 mg HS BHARAT Administration Baclofen 10 mg 05/17/17 22:00 05/23/17 06:21 Lioresal - PO 10 mg TID BHARAT Administration Benztropine Mesylate 1 mg 05/20/17 10:00 05/22/17 10:18 Cogentin - PO 1 mg DAILY BHARAT Administration Budesonide/Formoterol Fumarate 1 puff 05/13/17 10:00 05/22/17 10:18 Symbicort 80/4.5mcg - IH 1 inh DAILY BHARAT Administration Bupropion HCl 300 mg 05/17/17 10:00 05/22/17 10:18 Wellbutrin Xl - PO 300 mg DAILY BHARAT Administration Clonazepam 1 mg 05/14/17 10:00 05/22/17 23:03 Klonopin - PO 1 mg BID BHARAT Administration Divalproex Sodium 750 mg 05/14/17 22:00 05/22/17 23:05 Depakote - PO 750 mg HS BHARAT Administration Docusate Sodium 300 mg 05/13/17 22:00 05/22/17 23:03 Colace - PO 300 mg HS BHARAT Administration Ferrous Sulfate 325 mg 05/13/17 10:00 05/22/17 10:17 Feosol - PO 325 mg DAILY [facility]ARAT Administration Fluoxetine HCl 40 mg 05/14/17 10:00 05/22/17 10:17 Prozac - PO 40 mg DAILY BHARAT Administration Gabapentin 300 mg 05/14/17 14:00 05/23/17 06:22 Neurontin - PO 300 mg TID BHARAT Administration Insulin Aspart 1 vial 05/13/17 07:00 05/23/17 06:21 Novolog Vial Sliding Scale - SQ Not Given ACHS [facility] Protocol Levothyroxine Sodium 50 mcg 05/14/17 07:00 05/23/17 06:22 Synthroid - PO 50 mcg DAILY@0700 BHARAT Administration Meclizine HCl 12.5 mg 05/13/17 02:46 05/21/17 09:40 Antivert - PO 12.5 mg Q6H PRN Administration VERTIGO Metoprolol Succinate 12.5 mg 05/13/17 22:00 05/22/17 23:06 Toprol Xl - PO Not Given BID BHARAT Oxycodone HCl 10 mg 05/15/17 19:18 05/23/17 02:30 Roxicodone - PO 10 mg Q6H PRN Administration PAIN Pantoprazole Sodium 40 mg 05/13/17 10:00 05/22/17 10:17 Protonix - PO 40 mg DAILY BHARAT Administration Polyethylene Glycol 17 gm 05/14/17 10:00 05/22/17 10:18 Miralax (For Daily Use) - PO Not Given DAILY BHARAT Quetiapine Fumarate 300 mg 05/15/17 22:00 05/22/17 23:06 Seroquel - PO 300 mg HS BHARAT Administration Senna 2 tab 05/13/17 22:00 05/22/17 23:02 Senna - PO 2 tab HS BHARAT Administration Home Medications Medication Instructions Recorded RX: Albuterol Sulfate Inhaler - 1 puff IH Q4H 03/15/17 [Ventolin HFA Inhaler -] RX: Benztropine Mesylate [Cogentin 1 mg PO DAILY 03/15/17 -] RX: Budesonide/Formeterol Fumarate 1 inh PO DAILY 03/15/17 [SYMBICORT 80/4.5mcg -] RX: Bupropion HCl [Bupropion HCl 400 mg PO DAILY 03/15/17 Sr] RX: Clonazepam [Klonopin] 1 mg PO BID 03/15/17 RX: Docusate Sodium [Colace -] 300 mg PO HS 03/15/17 RX: Ferrous Sulfate 325 mg PO DAILY 03/15/17 RX: Furosemide [Lasix] 40 mg PO DAILY 03/15/17 RX: Gabapentin [Neurontin] 300 mg PO TID 03/15/17 RX: Metoprolol Succinate [Toprol 12.5 mg PO BID 03/15/17 XL -] RX: Morphine *Sr* [MS Contin -] 15 mg PO Q6H 03/15/17 RX: Nitroglycerin [Nitrostat] 0.6 mg SL PRN PRN 03/15/17 RX: Polyethylene Glycol 3350 17 gm PO DAILY 03/15/17 [Miralax 119 gm Btl -] RX: Quetiapine Fumarate [Seroquel] 300 tab PO HS 03/15/17 RX: Sennosides [Senna -] 2 tab PO HS 03/15/17 RX: Simvastatin [Zocor -] 40 mg PO HS 03/15/17 RX: Apixaban [Eliquis] 5 mg PO BID 03/16/17 RX: Divalproex [Depakote -] 750 mg PO HS 03/16/17 RX: Levothyroxine [Synthroid -] 50 mcg PO DAILY 03/16/17 RX: Pantoprazole Sodium [Protonix] 40 mg PO DAILY 03/16/17 Fluoxetine HCl [Prozac -] 40 mg PO DAILY 04/24/17 Metformin HCl [Glucophage -] 500 mg PO BID 04/24/17 Tizanidine HCl [Zanaflex] 2 mg PO TID PRN 05/13/17 PE: per resident's note ASSESSMENT AND PLAN: Patient is a 51 y/o lady with h/o CAD, s/p [place], CVA/TIA, asthma, schizophrenia, HTN, who presented after a mechanical fall and was found to have R pelvic Fx # Right Acetabulum nondisplaced Fracture , Right inferior pubic Ramus Fx :as per ortho; no surgeries at this time and partial WB RLE . Ortho Dr.Christianson. No surgical intervention as per ortho. PT continue, pain meds. prn # Auditory hallucinations with suicidal ideation resolved , discontinued Observation 1:1, cont. her home meds bupropion , seroquel, prozac and Klonopin # UTI: completed 5 days of IV Abx. discussed with Dr. Baird. Ucx: growing group D strep or enterococcus, as per Brie to start the patien ton Vancomycin #h/o CAD and [place] : cont BB , not on ASA # H/o CVA: no h/o of Afib # Recent DVT as outpt 2 months ago, cont eliquis 5 BID
[2017-05-23] MEDS: FLUoxetine HCL 20 MG CAPSULE (FP) PO SCH (10:30)
[2017-05-23] MEDS: clonazePAM 0.5 MG TABLET PO SCH ×2 (10:31→21:47)
[2017-05-23] MEDS: FERROUS SO4 325 MG TABLET (FP) PO SCH (10:31)
[2017-05-23] MEDS: PANTOPRAZOLE 40 MG TABLET (FP) PO SCH (10:34)
[2017-05-23] MEDS: METOPROLOL SUCCINATE 25 MG TAB.SR.24H (FP) PO SCH ×2 (10:34→21:46)
[2017-05-23] MEDS: POLYETHYLENE GLYCOL 3350 119 GM BTL PO SCH (10:34)
[2017-05-23] MEDS: APIXABAN 5 MG TABLET PO SCH ×2 (10:40→21:48)
[2017-05-23] MEDS: BENZTROPINE MESYLATE 1 MG TABLET (FP) PO SCH (10:40)
--- NOTE | 2017-05-23 11:16 | PN ---
Progress Note, Physician History of Present Illness: continues to c/o of severe burning also drinking a lot - Current Medication List Current Medications: Active Medications Albuterol Sulfate (Ventolin Hfa Inhaler -) 2 puff IH Q4H [facility] Last Admin: 05/22/17 14:28 Dose: Not Given Apixaban (Eliquis -) 5 mg PO BID [facility] Last Admin: 05/23/17 10:40 Dose: 5 mg Atorvastatin Calcium (Lipitor -) 20 mg PO HS [facility] Last Admin: 05/22/17 23:04 Dose: 20 mg Baclofen (Lioresal -) 10 mg PO TID [facility] Last Admin: 05/23/17 06:21 Dose: 10 mg Benztropine Mesylate (Cogentin -) 1 mg PO DAILY [facility] Last Admin: 05/23/17 10:40 Dose: 1 mg Budesonide/Formoterol Fumarate (Symbicort 80/4.5mcg -) 1 puff IH DAILY [facility] Last Admin: 05/22/17 10:18 Dose: 1 inh Bupropion HCl (Wellbutrin Xl -) 300 mg PO DAILY [facility] Last Admin: 05/23/17 10:35 Dose: 300 mg Clonazepam (Klonopin -) 1 mg PO BID [facility] Last Admin: 05/23/17 10:31 Dose: 1 mg Divalproex Sodium (Depakote -) 750 mg PO HS [facility] Last Admin: 05/22/17 23:05 Dose: 750 mg Docusate Sodium (Colace -) 300 mg PO HS [facility] Last Admin: 05/22/17 23:03 Dose: 300 mg Ferrous Sulfate (Feosol -) 325 mg PO DAILY [facility] Last Admin: 05/23/17 10:31 Dose: 325 mg Fluoxetine HCl (Prozac -) 40 mg PO DAILY [facility] Last Admin: 05/23/17 10:30 Dose: 40 mg Gabapentin (Neurontin -) 300 mg PO TID [facility] Last Admin: 05/23/17 06:22 Dose: 300 mg Insulin Aspart (Novolog Vial Sliding Scale -) 1 vial SQ ACHS [facility] PRN Reason: Protocol Last Admin: 05/23/17 06:21 Dose: Not Given Levothyroxine Sodium (Synthroid -) 50 mcg PO DAILY@0700 [facility] Last Admin: 05/23/17 06:22 Dose: 50 mcg Meclizine HCl (Antivert -) 12.5 mg PO Q6H PRN PRN Reason: VERTIGO Last Admin: 05/21/17 09:40 Dose: 12.5 mg Metoprolol Succinate (Toprol Xl -) 12.5 mg PO BID [facility] Last Admin: 05/23/17 10:34 Dose: 12.5 mg Oxycodone HCl (Roxicodone -) 10 mg PO Q6H PRN PRN Reason: PAIN Last Admin: 05/23/17 02:30 Dose: 10 mg Pantoprazole Sodium (Protonix -) 40 mg PO DAILY [facility] Last Admin: 05/23/17 10:34 Dose: 40 mg Polyethylene Glycol (Miralax (For Daily Use) -) 17 gm PO DAILY [facility] Last Admin: 05/23/17 10:34 Dose: Not Given Quetiapine Fumarate (Seroquel -) 300 mg PO HS [facility] Last Admin: 05/22/17 23:06 Dose: 300 mg Senna (Senna -) 2 tab PO [facility] Last Admin: 05/22/17 23:02 Dose: 2 tab - Objective Vital Signs: Vital Signs Temperature 97.6 F 05/23/17 06:00 Pulse Rate 84 05/23/17 06:00 Respiratory Rate 18 05/23/17 06:00 Blood Pressure 109/75 05/23/17 06:00 O2 Sat by Pulse Oximetry (%) 95 05/22/17 19:54 Constitutional: Yes: Calm, Mild Distress Cardiovascular: Yes: Regular Rate and Rhythm Respiratory: Yes: Regular, CTA Bilaterally Gastrointestinal: Yes: Normal Bowel Sounds, Soft Musculoskeletal: Yes: WNL Extremities: Yes: WNL Neurological: Yes: Alert, Oriented Psychiatric: Yes: Alert, Oriented Labs: CBC, BMP 05/20/17 06:30 05/19/17 09:53 INR, PTT INR 1.10 (0.82-1.09) 05/13/17 06:00 Assessment/Plan patient with rt sided fracture now with uti and suicidal ideation and one to one patient still with symptoms cx have been send patient allergic to multiple medications allergies asked and noted what patient gets Problem List - Problems (1) Pelvic fracture Code(s): S32.9XXA - FRACTURE OF UNSP PARTS OF LUMBOSACRAL SPINE AND PELVIS, INIT Qualifiers: Encounter type: subsequent encounter Pelvic bone location: acetabulum Sublocation of acetabulum: posterior wall Fracture type: closed Fracture alignment: nondisplaced Laterality: right (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 Code(s): Z79.01 - [facility] (CURRENT) USE OF ANTICOAGULANTS (3) Bipolar disorder Code(s): F31.9 - BIPOLAR DISORDER, UNSPECIFIED Qualifiers: Active/Remission status: in full remission Most recent bipolar episode type : most recent episode depressed (4) 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 Code(s): E11.9 - TYPE 2 DIABETES MELLITUS WITHOUT COMPLICATIONS Qualifiers: 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 type: type 2 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 complication status: without complication (5) HTN (hypertension) Code(s): I10 - ESSENTIAL (PRIMARY) HYPERTENSION Qualifiers: Hypertension type: essential hypertension Qualified Code(s): I10 - Essential (primary) hypertension (6) Hyperlipidemia Code(s): E78.5 - HYPERLIPIDEMIA, UNSPECIFIED Qualifiers: Hyperlipidemia type: pure hypercholesterolemia Qualified Code(s): E78.00 - Pure hypercholesterolemia, unspecified; E78.0 - Pure hypercholesterolemia (7) ARVIND treated with BiPAP Code(s): G47.33 - OBSTRUCTIVE SLEEP APNEA (ADULT) (PEDIATRIC) (8) Auditory hallucinations Code(s): R44.0 - AUDITORY HALLUCINATIONS 9 UTI plan repeat cx noted 1 to 1 stopped burning still present will start patient on vanco
--- NOTE | 2017-05-23 12:30 | PN ---
Progress Note, Physician Chief Complaint: Events noted no significant changes History of Present Illness: Patient was seen and examined. Awake and alert. Chart was reviewed Denies chest pain, SOB or palpitations Hip and back pain - Current Medication List Current Medications: Active Medications Albuterol Sulfate (Ventolin Hfa Inhaler -) 2 puff IH Q4H [facility] Last Admin: 05/22/17 14:28 Dose: Not Given Apixaban (Eliquis -) 5 mg PO BID [facility] Last Admin: 05/23/17 10:40 Dose: 5 mg Atorvastatin Calcium (Lipitor -) 20 mg PO HS [facility] Last Admin: 05/22/17 23:04 Dose: 20 mg Baclofen (Lioresal -) 10 mg PO TID [facility] Last Admin: 05/23/17 06:21 Dose: 10 mg Benztropine Mesylate (Cogentin -) 1 mg PO DAILY [facility] Last Admin: 05/23/17 10:40 Dose: 1 mg Budesonide/Formoterol Fumarate (Symbicort 80/4.5mcg -) 1 puff IH DAILY [facility] Last Admin: 05/22/17 10:18 Dose: 1 inh Bupropion HCl (Wellbutrin Xl -) 300 mg PO DAILY [facility] Last Admin: 05/23/17 10:35 Dose: 300 mg Clonazepam (Klonopin -) 1 mg PO BID [facility] Last Admin: 05/23/17 10:31 Dose: 1 mg Divalproex Sodium (Depakote -) 750 mg PO HS [facility] Last Admin: 05/22/17 23:05 Dose: 750 mg Docusate Sodium (Colace -) 300 mg PO HS [facility] Last Admin: 05/22/17 23:03 Dose: 300 mg Ferrous Sulfate (Feosol -) 325 mg PO DAILY [facility] Last Admin: 05/23/17 10:31 Dose: 325 mg Fluoxetine HCl (Prozac -) 40 mg PO DAILY [facility] Last Admin: 05/23/17 10:30 Dose: 40 mg Gabapentin (Neurontin -) 300 mg PO TID [facility] Last Admin: 05/23/17 06:22 Dose: 300 mg Vancomycin HCl 1,250 mg/ (Dextrose) 250 mls @ 250 mls/hr IVPB DAILY [facility] PRN Reason: Protocol Insulin Aspart (Novolog Vial Sliding Scale -) 1 vial SQ ACHS [facility] PRN Reason: Protocol Last Admin: 05/23/17 06:21 Dose: Not Given Levothyroxine Sodium (Synthroid -) 50 mcg PO DAILY@0700 [facility] Last Admin: 05/23/17 06:22 Dose: 50 mcg Meclizine HCl (Antivert -) 12.5 mg PO Q6H PRN PRN Reason: VERTIGO Last Admin: 05/21/17 09:40 Dose: 12.5 mg Metoprolol Succinate (Toprol Xl -) 12.5 mg PO BID [facility] Last Admin: 05/23/17 10:34 Dose: 12.5 mg Oxycodone HCl (Roxicodone -) 10 mg PO Q6H PRN PRN Reason: PAIN Last Admin: 05/23/17 02:30 Dose: 10 mg Pantoprazole Sodium (Protonix -) 40 mg PO DAILY [facility] Last Admin: 05/23/17 10:34 Dose: 40 mg Polyethylene Glycol (Miralax (For Daily Use) -) 17 gm PO DAILY [facility] Last Admin: 05/23/17 10:34 Dose: Not Given Quetiapine Fumarate (Seroquel -) 300 mg PO HS [facility] Last Admin: 05/22/17 23:06 Dose: 300 mg Senna (Senna -) 2 tab PO [facility] Last Admin: 05/22/17 23:02 Dose: 2 tab - Objective Vital Signs: Vital Signs Temperature 97.6 F 05/23/17 06:00 Pulse Rate 84 05/23/17 06:00 Respiratory Rate 18 05/23/17 06:00 Blood Pressure 109/75 05/23/17 06:00 O2 Sat by Pulse Oximetry (%) 95 05/22/17 19:54 Neck: Yes: Supple Cardiovascular: Yes: Regular Rate and Rhythm, S1, S2 Respiratory: Yes: CTA Bilaterally Gastrointestinal: Yes: Normal Bowel Sounds, Soft. No: Tenderness Edema: No Problem List - Problems (1) Pelvic fracture Code(s): S32.9XXA - FRACTURE OF UNSP PARTS OF LUMBOSACRAL SPINE AND PELVIS, INIT Qualifiers: Encounter type: subsequent encounter Pelvic bone location: acetabulum Sublocation of acetabulum: posterior wall Fracture type: closed Fracture alignment: nondisplaced Laterality: right (2) Weakness Code(s): R53.1 - WEAKNESS (3) Bipolar disorder Code(s): F31.9 - BIPOLAR DISORDER, UNSPECIFIED Qualifiers: Active/Remission status: in full remission Most recent bipolar episode type : most recent episode depressed (4) Diabetes type 2, controlled Code(s): E11.9 - TYPE 2 DIABETES MELLITUS WITHOUT COMPLICATIONS Qualifiers: 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 complication status: without complication 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 alf insulin use: without alf use Qualified Code(s): E11.9 - Type 2 diabetes mellitus without complications (5) HTN (hypertension) Code(s): I10 - ESSENTIAL (PRIMARY) HYPERTENSION Qualifiers: Hypertension type: essential hypertension Qualified Code(s): I10 - Essential (primary) hypertension (6) Hyperlipidemia Code(s): E78.5 - HYPERLIPIDEMIA, UNSPECIFIED Qualifiers: Hyperlipidemia type: pure hypercholesterolemia Qualified Code(s): E78.00 - Pure hypercholesterolemia, unspecified; E78.0 - Pure hypercholesterolemia (7) CAD (coronary artery disease) Code(s): I25.10 - ATHSCL HEART DISEASE OF [place] CORONARY ARTERY W/O ANG PCTRS (8) COPD (chronic obstructive pulmonary disease) Code(s): J44.9 - CHRONIC OBSTRUCTIVE PULMONARY DISEASE, UNSPECIFIED Assessment/Plan 1. Non-displaced Fracture of right acetabulum 2. CAD h/o NE 3. Hypothyroidism 4. Polysubstance abuse, Bipolar disorder and schizophrenia 5. COPD 6. CVA/TIA 7. Migraine headache 8. Suicidal ideation on 1:1 PLAN: 1. Non-surgical management as per Orthopedics 2. Continue Metoprolol ER and Atorvastatin. 3. Maintain on Eliquis for DVT prophylaxis, but would need to clarify DVT prophylactic dose ? 2.5 mg BID 4. Continue analgesics and psych follow up Further plans are to follow Ahmet Antunez MD
[2017-05-23] MEDS: ALBUTEROL SO4 18 GM HFA INHALER IH SCH ×3 (15:02→19:09)
--- NOTE | 2017-05-23 15:04 | PN ---
Physical Exam: SUBJECTIVE: Patient seen and examined. No acute events overnight. Pt re-evaluated by psych yesterday, deemed not to be acutely suicidal anymore. This am, pt reports mild pain in leg, but no chest pain, SOB, abdominal pain, n/v/d/c, and dysuria. OBJECTIVE: Vital Signs Period Temp Pulse Resp BP Sys/Schultz Pulse Ox Last 24 Hr 97.6 F-98.7 F 84-103 18-20 105-125/62-75 95-95 GENERAL: middle aged female, alert, in no acute distress. HEENT: NC, AT LUNGS: Breath sounds equal, clear to auscultation bilaterally, no wheezes, no crackles, no accessory muscle use. HEART: Regular rate and rhythm, S1, S2 without murmur, rub or gallop. ABDOMEN: obese abdomen, soft, nontender, nondistended, normoactive bowel sounds , no guarding EXTREMITIES: no edema. R leg is externally rotated slightly. NEUROLOGICAL: Normal speech, gait not observed. PSYCH: denies SI, HI, AH, and VH at this time Laboratory Results - last 24 hr 05/22/17 05/22/17 05/23/17 16:20 23:01 06:20 POC Glucometer 145 135 112 05/23/17 12:16 POC Glucometer 86 Active Medications Generic Name Dose Route Start Last Admin Trade Name Mitchelq PRN Reason Stop Dose Admin Albuterol Sulfate 2 puff 05/13/17 07:15 05/22/17 14:28 Ventolin Hfa Inhaler - IH Not Given Q4H BHARAT Apixaban 5 mg 05/18/17 10:00 05/23/17 10:40 Eliquis - PO 5 mg BID BHARAT Administration Atorvastatin Calcium 20 mg 05/13/17 22:00 05/22/17 23:04 Lipitor - PO 20 mg HS BHARAT Administration Baclofen 10 mg 05/17/17 22:00 05/23/17 06:21 Lioresal - PO 10 mg TID BHARAT Administration Benztropine Mesylate 1 mg 05/20/17 10:00 05/23/17 10:40 Cogentin - PO 1 mg DAILY BHARAT Administration Budesonide/Formoterol Fumarate 1 puff 05/13/17 10:00 05/22/17 10:18 Symbicort 80/4.5mcg - IH 1 inh DAILY BHARAT Administration Bupropion HCl 300 mg 05/17/17 10:00 05/23/17 10:35 Wellbutrin Xl - PO 300 mg DAILY BHARAT Administration Clonazepam 1 mg 05/14/17 10:00 05/23/17 10:31 Klonopin - PO 1 mg BID BHARAT Administration Divalproex Sodium 750 mg 05/14/17 22:00 05/22/17 23:05 Depakote - PO 750 mg HS BHARAT Administration Docusate Sodium 300 mg 05/13/17 22:00 05/22/17 23:03 Colace - PO 300 mg HS BHARAT Administration Ferrous Sulfate 325 mg 05/13/17 10:00 05/23/17 10:31 Feosol - PO 325 mg DAILY BHARAT Administration Fluoxetine HCl 40 mg 05/14/17 10:00 05/23/17 10:30 Prozac - PO 40 mg DAILY BHARAT Administration Gabapentin 300 mg 05/14/17 14:00 05/23/17 06:22 Neurontin - PO 300 mg TID BHARAT Administration Vancomycin HCl 1,250 mg/ 250 mls @ 166.667 mls/hr 05/23/17 13:00 Dextrose IVPB DAILY@1300 [facility] Protocol Insulin Aspart 1 vial 05/13/17 07:00 05/23/17 06:21 Novolog Vial Sliding Scale - SQ Not Given ACHS [facility] Protocol Levothyroxine Sodium 50 mcg 05/14/17 07:00 05/23/17 06:22 Synthroid - PO 50 mcg DAILY@0700 BHARAT Administration Meclizine HCl 12.5 mg 05/13/17 02:46 05/21/17 09:40 Antivert - PO 12.5 mg Q6H PRN Administration VERTIGO Metoprolol Succinate 12.5 mg 05/13/17 22:00 05/23/17 10:34 Toprol Xl - PO 12.5 mg BID BHARAT Administration Oxycodone HCl 10 mg 05/15/17 19:18 05/23/17 02:30 Roxicodone - PO 10 mg Q6H PRN Administration PAIN Pantoprazole Sodium 40 mg 05/13/17 10:00 05/23/17 10:34 Protonix - PO 40 mg DAILY BHARAT Administration Polyethylene Glycol 17 gm 05/14/17 10:00 05/23/17 10:34 Miralax (For Daily Use) - PO Not Given DAILY BHARAT Quetiapine Fumarate 300 mg 05/15/17 22:00 05/22/17 23:06 Seroquel - PO 300 mg HS BHARAT Administration Senna 2 tab 05/13/17 22:00 05/22/17 23:02 Senna - PO 2 tab HS BHARAT Administration ASSESSMENT/PLAN: 51F w/ hx of CAD s/p [place], CVA/TIA, asthma, DVT, schizophrenia, and HTN who presented after a mechanical fall and was found to have R acetabular and right inferior pubic ramus fracture. #R acetabular Fx and R inferior pubic Ramus Fx - no surgical intervention - continue pain control with oxycodone PRN - PT #Auditory hallucinations with suicidality- resolved as per psych - 1:1 observation discontinued - psych re-evaluated pt and determined that pt is no longer acutely suicidal - continue bupropion, seroquel, prozac, Klonopin, depakote #DM -continue ISS, gabapentin #UTI - multiple allergies to abx, abx were given before Ucx was sent -Ucx: growing > 100,000 CFU of group D strep or enterococcus -No fever, no leukocytosis. - per ID, pt started on vancomycin #asthma -continue symbicort and ventolin #hypothyroidism -continue synthroid #anemia -continue ferrous sulfate #HLD -continue lipitor #constipation -continue colace, miralax, senna #h/o CAD and [place] - cont toprol - not on ASA #H/o CVA: no h/o of Afib #DVT - occurred as outpt 2 months ago - cont eliquis 5 BID #FEN/ppx -not on fluids -no electrolyte labs today -diabetic diet -protonix 40 -eliquis 5 BID #Dispo -medically stable for discharge. Pt no longer suicidal per psych, so pt can be discharged to any SNF. -Deondre Moya MD PGY1 Visit type - Emergency Visit Emergency Visit: Yes ED Registration Date: 05/12/17 Care time: The patient presented to the Emergency Department on the above date and was hospitalized for further evaluation of their emergent condition. - New Patient This patient is new to me today: No - Critical Care Critical Care patient: No
[2017-05-23] MEDS: VANCOMYCIN 1,250 MG in DEXTROSE 5%-WATER - 250 ML IVPB SCH (15:06)
[2017-05-23] MEDS: BUDESONIDE/FORMETEROL FUMARATE 80/4.5 mcg INHALER IH SCH (15:07)
[2017-05-23] MEDS ORDERED: PT OWN MED DRAWER 7, Y5N ONE (21:16)
[2017-05-23] MEDS: DOCUSATE SODIUM 100 MG CAPSULE (FP) PO SCH (21:45)
[2017-05-23] MEDS: SENNOSIDES 8.6MG TABLET (FP) PO SCH (21:46)
[2017-05-23] MEDS: QUEtiapine FUMARATE 100 MG TABLET (FP) PO SCH (21:47)
[2017-05-23] MEDS: ATORVASTATIN CA 20 MG TABLET (FP) PO SCH (21:47)
[2017-05-23] MEDS: DIVALPROEX SODIUM 250 MG TABLET E.C. (FP) PO SCH (21:48)
[2017-05-24] MEDS: ALBUTEROL SO4 18 GM HFA INHALER IH SCH ×4 (00:22→22:16)
[2017-05-24] MEDS: BACLOFEN 10 MG TABLET (FP) PO SCH ×3 (05:53→22:08)
[2017-05-24] MEDS: oxyCODONE HCL 5 MG TABLET PO PRN ×3 (05:53→21:18)
[2017-05-24] MEDS: GABAPENTIN 300 MG CAPSULE (FP) PO SCH ×3 (05:53→22:08)
[2017-05-24] MEDS: LEVOTHYROXINE NA 100 MCG TABLET (FP) PO SCH (06:01)
[2017-05-24] MEDS: INSULIN SLIDING SCALE (NOVOLOG) 1 VIAL SQ SCH ×4 (06:15→22:16)
[2017-05-24 08:48] LABS: BASO # 0.1 # (0.1-1); BASO % 0.7 % (0-2.0); EOS # 0.1 # (0-4.5); EOS % 1.5 % (0-4.5); MCH 28.7 pg (25.7-33.7); MEAN CELL VOLUME 84.2 fl (80-96); MEAN PLT VOLUME 10.3 fl (7.5-11.1); MONO # 0.4 # (3.8-10.2); NEUT # 5.2 # (42.8-82.8); NEUT % 66.9 % (42.8-82.8); PLATELET COUNT 207 K/MM3 (134-434); WHITE BLOOD COUNT 7.8 K/mm3 (4.0-10.0)
[2017-05-24 09:08] LABS: ANION GAP 7 (8-16); CALCIUM 8.8 mg/dL (8.5-10.1); CO2 31 mmol/L (21-32); CREATININE 1.1 mg/dL (0.55-1.02); GLUCOSE,RANDOM 81 mg/dL (74-106)
[2017-05-24] MEDS: METOPROLOL SUCCINATE 25 MG TAB.SR.24H (FP) PO SCH ×2 (10:58→22:06)
[2017-05-24] MEDS: PANTOPRAZOLE 40 MG TABLET (FP) PO SCH (10:59)
[2017-05-24] MEDS: FERROUS SO4 325 MG TABLET (FP) PO SCH (10:59)
[2017-05-24] MEDS: FLUoxetine HCL 20 MG CAPSULE (FP) PO SCH (10:59)
[2017-05-24] MEDS: clonazePAM 0.5 MG TABLET PO SCH ×2 (11:00→22:07)
[2017-05-24] MEDS ORDERED: PT OWN MED DRAWER 7, Y5N ONE ×2 (11:02→12:23)
[2017-05-24] MEDS: APIXABAN 5 MG TABLET PO SCH ×2 (11:03→22:07)
[2017-05-24] MEDS: BENZTROPINE MESYLATE 1 MG TABLET (FP) PO SCH (11:04)
[2017-05-24] MEDS: POLYETHYLENE GLYCOL 3350 119 GM BTL PO SCH (11:06)
[2017-05-24] MEDS: BUDESONIDE/FORMETEROL FUMARATE 80/4.5 mcg INHALER IH SCH (11:15)
--- NOTE | 2017-05-24 11:24 | PN ---
Progress Note, Physician History of Present Illness: says burning in urine has not improved much patient looks comfortable - Current Medication List Current Medications: Active Medications Albuterol Sulfate (Ventolin Hfa Inhaler -) 2 puff IH Q4H [facility] Last Admin: 05/24/17 03:50 Dose: Not Given Apixaban (Eliquis -) 5 mg PO BID [facility] Last Admin: 05/24/17 11:03 Dose: 5 mg Atorvastatin Calcium (Lipitor -) 20 mg PO HS [facility] Last Admin: 05/23/17 21:47 Dose: 20 mg Baclofen (Lioresal -) 10 mg PO TID [facility] Last Admin: 05/24/17 05:53 Dose: 10 mg Benztropine Mesylate (Cogentin -) 1 mg PO DAILY [facility] Last Admin: 05/24/17 11:04 Dose: 1 mg Budesonide/Formoterol Fumarate (Symbicort 80/4.5mcg -) 1 puff IH DAILY [facility] Last Admin: 05/24/17 11:15 Dose: Not Given Bupropion HCl (Wellbutrin Xl -) 300 mg PO DAILY [facility] Last Admin: 05/24/17 10:58 Dose: 300 mg Clonazepam (Klonopin -) 1 mg PO BID [facility] Last Admin: 05/24/17 11:00 Dose: 1 mg Divalproex Sodium (Depakote -) 750 mg PO HS [facility] Last Admin: 05/23/17 21:48 Dose: 750 mg Docusate Sodium (Colace -) 300 mg PO HS [facility] Last Admin: 05/23/17 21:45 Dose: 300 mg Ferrous Sulfate (Feosol -) 325 mg PO DAILY [facility] Last Admin: 05/24/17 10:59 Dose: 325 mg Fluoxetine HCl (Prozac -) 40 mg PO DAILY [facility] Last Admin: 05/24/17 10:59 Dose: 40 mg Gabapentin (Neurontin -) 300 mg PO TID [facility] Last Admin: 05/24/17 05:53 Dose: 300 mg Vancomycin HCl 1,250 mg/ (Dextrose) 250 mls @ 166.667 mls/hr IVPB DAILY@1300 [facility] PRN Reason: Protocol Last Admin: 05/23/17 15:06 Dose: 166.667 mls/hr Insulin Aspart (Novolog Vial Sliding Scale -) 1 vial SQ ACHS [facility] PRN Reason: Protocol Last Admin: 05/24/17 06:15 Dose: Not Given Levothyroxine Sodium (Synthroid -) 50 mcg PO DAILY@0700 [facility] Last Admin: 05/24/17 06:01 Dose: 50 mcg Meclizine HCl (Antivert -) 12.5 mg PO Q6H PRN PRN Reason: VERTIGO Last Admin: 05/21/17 09:40 Dose: 12.5 mg Metoprolol Succinate (Toprol Xl -) 12.5 mg PO BID [facility] Last Admin: 05/24/17 10:58 Dose: 12.5 mg Oxycodone HCl (Roxicodone -) 10 mg PO Q6H PRN PRN Reason: PAIN Last Admin: 05/24/17 05:53 Dose: 10 mg Pantoprazole Sodium (Protonix -) 40 mg PO DAILY [facility] Last Admin: 05/24/17 10:59 Dose: 40 mg Polyethylene Glycol (Miralax (For Daily Use) -) 17 gm PO DAILY [facility] Last Admin: 05/24/17 11:06 Dose: 17 grams Quetiapine Fumarate (Seroquel -) 300 mg PO HS [facility] Last Admin: 05/23/17 21:47 Dose: 300 mg Senna (Senna -) 2 tab PO [facility] Last Admin: 05/23/17 21:46 Dose: 2 tab - Objective Vital Signs: Vital Signs Temperature 98.7 F 05/24/17 08:41 Pulse Rate 85 05/24/17 08:41 Respiratory Rate 18 05/24/17 08:41 Blood Pressure 110/68 05/24/17 08:41 O2 Sat by Pulse Oximetry (%) 100 05/23/17 21:00 Constitutional: Yes: No Distress, Calm Cardiovascular: Yes: Regular Rate and Rhythm Respiratory: Yes: Regular, CTA Bilaterally Gastrointestinal: Yes: Normal Bowel Sounds, Soft Musculoskeletal: Yes: WNL Extremities: Yes: WNL Neurological: Yes: Alert, Oriented Psychiatric: Yes: Alert Labs: CBC, BMP 05/24/17 08:20 05/24/17 08:20 INR, PTT INR 1.10 (0.82-1.09) 05/13/17 06:00 Assessment/Plan patient with rt sided fracture now with uti and suicidal ideation and one to one patient still with symptoms cx have been send patient allergic to multiple medications allergies asked and noted what patient gets Problem List - Problems (1) Pelvic fracture Code(s): S32.9XXA - FRACTURE OF UNSP PARTS OF LUMBOSACRAL SPINE AND PELVIS, INIT Qualifiers: Encounter type: subsequent encounter Pelvic bone location: acetabulum Sublocation of acetabulum: posterior wall Fracture type: closed Fracture alignment: nondisplaced Laterality: right (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 Code(s): 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.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) USE OF ANTICOAGULANTS (3) Bipolar disorder Code(s): F31.9 - BIPOLAR DISORDER, UNSPECIFIED Qualifiers: Active/Remission status: in full remission Most recent bipolar episode type : most recent episode depressed (4) 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 Code(s): E11.9 - TYPE 2 DIABETES MELLITUS WITHOUT COMPLICATIONS Qualifiers: 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 type: type 2 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 complication status: without complication (5) HTN (hypertension) Code(s): I10 - ESSENTIAL (PRIMARY) HYPERTENSION Qualifiers: Hypertension type: essential hypertension Qualified Code(s): I10 - Essential (primary) hypertension (6) Hyperlipidemia Code(s): E78.5 - HYPERLIPIDEMIA, UNSPECIFIED Qualifiers: Hyperlipidemia type: pure hypercholesterolemia Qualified Code(s): E78.00 - Pure hypercholesterolemia, unspecified; E78.0 - Pure hypercholesterolemia (7) ARVIND treated with BiPAP Code(s): G47.33 - OBSTRUCTIVE SLEEP APNEA (ADULT) (PEDIATRIC) (8) Auditory hallucinations Code(s): R44.0 - AUDITORY HALLUCINATIONS 9 UTI plan continue abx if patients insurance approves linezoloid patient can be discharged on zyox 600 mg bid for 7 days
--- NOTE | 2017-05-24 11:31 | PN ---
Progress Note, Physician History of Present Illness: Resting comfortably, no complaints. - Current Medication List Current Medications: Active Medications Albuterol Sulfate (Ventolin Hfa Inhaler -) 2 puff IH Q4H [facility] Last Admin: 05/24/17 03:50 Dose: Not Given Apixaban (Eliquis -) 5 mg PO BID [facility] Last Admin: 05/24/17 11:03 Dose: 5 mg Atorvastatin Calcium (Lipitor -) 20 mg PO HS [facility] Last Admin: 05/23/17 21:47 Dose: 20 mg Baclofen (Lioresal -) 10 mg PO TID [facility] Last Admin: 05/24/17 05:53 Dose: 10 mg Benztropine Mesylate (Cogentin -) 1 mg PO DAILY [facility] Last Admin: 05/24/17 11:04 Dose: 1 mg Budesonide/Formoterol Fumarate (Symbicort 80/4.5mcg -) 1 puff IH DAILY [facility] Last Admin: 05/24/17 11:15 Dose: Not Given Bupropion HCl (Wellbutrin Xl -) 300 mg PO DAILY [facility] Last Admin: 05/24/17 10:58 Dose: 300 mg Clonazepam (Klonopin -) 1 mg PO BID [facility] Last Admin: 05/24/17 11:00 Dose: 1 mg Divalproex Sodium (Depakote -) 750 mg PO [facility] Last Admin: 05/23/17 21:48 Dose: 750 mg Docusate Sodium (Colace -) 300 mg PO HS [facility] Last Admin: 05/23/17 21:45 Dose: 300 mg Ferrous Sulfate (Feosol -) 325 mg PO DAILY [facility] Last Admin: 05/24/17 10:59 Dose: 325 mg Fluoxetine HCl (Prozac -) 40 mg PO DAILY [facility] Last Admin: 05/24/17 10:59 Dose: 40 mg Gabapentin (Neurontin -) 300 mg PO TID [facility] Last Admin: 05/24/17 05:53 Dose: 300 mg Vancomycin HCl 1,250 mg/ (Dextrose) 250 mls @ 166.667 mls/hr IVPB DAILY@1300 [facility] PRN Reason: Protocol Last Admin: 05/23/17 15:06 Dose: 166.667 mls/hr Insulin Aspart (Novolog Vial Sliding Scale -) 1 vial SQ ACHS [facility] PRN Reason: Protocol Last Admin: 05/24/17 06:15 Dose: Not Given Levothyroxine Sodium (Synthroid -) 50 mcg PO DAILY@0700 [facility] Last Admin: 05/24/17 06:01 Dose: 50 mcg Meclizine HCl (Antivert -) 12.5 mg PO Q6H PRN PRN Reason: VERTIGO Last Admin: 05/21/17 09:40 Dose: 12.5 mg Metoprolol Succinate (Toprol Xl -) 12.5 mg PO BID [facility] Last Admin: 05/24/17 10:58 Dose: 12.5 mg Oxycodone HCl (Roxicodone -) 10 mg PO Q6H PRN PRN Reason: PAIN Last Admin: 05/24/17 05:53 Dose: 10 mg Pantoprazole Sodium (Protonix -) 40 mg PO DAILY [facility] Last Admin: 05/24/17 10:59 Dose: 40 mg Polyethylene Glycol (Miralax (For Daily Use) -) 17 gm PO DAILY [facility] Last Admin: 05/24/17 11:06 Dose: 17 grams Quetiapine Fumarate (Seroquel -) 300 mg PO [facility] Last Admin: 05/23/17 21:47 Dose: 300 mg Senna (Senna -) 2 tab PO [facility] Last Admin: 05/23/17 21:46 Dose: 2 tab - Objective Vital Signs: Vital Signs Temperature 98.7 F 05/24/17 08:41 Pulse Rate 85 05/24/17 08:41 Respiratory Rate 18 05/24/17 08:41 Blood Pressure 110/68 05/24/17 08:41 O2 Sat by Pulse Oximetry (%) 100 05/23/17 21:00 Constitutional: Yes: No Distress, Calm, Thin Neck: Yes: Supple Cardiovascular: Yes: Regular Rate and Rhythm Respiratory: Yes: Regular, Diminished Gastrointestinal: Yes: Normal Bowel Sounds, Soft Edema: No Labs: CBC, BMP 05/24/17 08:20 05/24/17 08:20 INR, PTT INR 1.10 (0.82-1.09) 05/13/17 06:00 Problem List - Problems (1) Pelvic fracture Code(s): S32.9XXA - FRACTURE OF UNSP PARTS OF LUMBOSACRAL SPINE AND PELVIS, INIT Qualifiers: Encounter type: subsequent encounter Pelvic bone location: acetabulum Sublocation of acetabulum: posterior wall Fracture type: closed Fracture alignment: nondisplaced Laterality: right (2) 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(s): 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 (3) Bipolar disorder Code(s): F31.9 - BIPOLAR DISORDER, UNSPECIFIED Qualifiers: Active/Remission status: in full remission Most recent bipolar episode type : most recent episode depressed (4) 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 Code(s): E11.9 - TYPE 2 DIABETES MELLITUS WITHOUT COMPLICATIONS Qualifiers: 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 type: type 2 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 complication status: without complication (5) HTN (hypertension) Code(s): I10 - ESSENTIAL (PRIMARY) HYPERTENSION Qualifiers: Hypertension type: essential hypertension Qualified Code(s): I10 - Essential (primary) hypertension (6) Hyperlipidemia Code(s): E78.5 - HYPERLIPIDEMIA, UNSPECIFIED Qualifiers: Hyperlipidemia type: pure hypercholesterolemia Qualified Code(s): E78.00 - Pure hypercholesterolemia, unspecified; E78.0 - Pure hypercholesterolemia (7) ARVIND treated with BiPAP Code(s): G47.33 - OBSTRUCTIVE SLEEP APNEA (ADULT) (PEDIATRIC) (8) Auditory hallucinations Code(s): R44.0 - AUDITORY HALLUCINATIONS (9) Suicidal ideations Code(s): R45.851 - SUICIDAL IDEATIONS (10) DVT (deep venous thrombosis) Code(s): I82.409 - ACUTE EMBOLISM AND THOMBOS UNSP DEEP VN UNSP LOWER EXTREMITY Assessment/Plan 1. Non-displaced Fracture of right acetabulum 2. CAD h/o [place] 3. Hypothyroidism 4. Polysubstance abuse, Bipolar disorder and schizophrenia 5. COPD 6. CVA/TIA 7. Migraine headache PLAN: 1. Non-surgical management as per Orthopedics 2. Continue Metoprolol ER 12.5 bid and Atorvastatin 20 qhs 3. Maintain on Eliquis 5 bid for DVT treatment 4. Continue analgesics and eventual psych inpatient care
[2017-05-24] MEDS: MECLIZINE HCL 12.5 MG TABLET PO PRN (12:24)
[2017-05-24] MEDS: VANCOMYCIN 1,250 MG in DEXTROSE 5%-WATER - 250 ML IVPB SCH (14:17)
[2017-05-24] MEDS ORDERED: morphine CARPU-JECT 10 MG/1 ML DISP.SYRIN IVPUSH ONE (14:39)
[2017-05-24] MEDS ORDERED: morphine CARPU-JECT 8 MG/1 ML DISP.SYRIN IVPUSH ONE (14:45)
--- NOTE | 2017-05-24 18:33 | DS ---
Physical Exam: SUBJECTIVE: Patient seen and examined. Pt refused PT yesterday. This am, pt endorses usual back and leg pain. She denies headache, chest pain, SOB, abdominal pain, n/v/d/c, and dysuria. OBJECTIVE: Vital Signs Period Temp Pulse Resp BP Sys/Schultz Pulse Ox Last 24 Hr 97.5 F-98.7 F 72-91 18-20 103-136/50-71 100 PHYSICAL EXAM GENERAL: middle aged female, alert, in no acute distress. HEENT: NC, AT LUNGS: Breath sounds equal, clear to auscultation bilaterally, no wheezes, no crackles, no accessory muscle use. HEART: Regular rate and rhythm, S1, S2 without murmur, rub or gallop. ABDOMEN: obese abdomen, soft, nontender, nondistended, normoactive bowel sounds , no guarding EXTREMITIES: no edema. R leg is externally rotated slightly. NEUROLOGICAL: Normal speech, gait not observed. PSYCH: denies SI, HI, AH, and VH at this time LABS Laboratory Results - last 24 hr 05/24/17 05/24/17 05/24/17 05:52 08:20 08:20 WBC 7.8 RBC 4.15 Hgb 11.9 Hct 35.0 MCV 84.2 MCH 28.7 MCHC 34.0 RDW 16.0 H Plt Count 207 D MPV 10.3 Absolute Neuts (auto) 5.2 L Absolute Lymphs (auto) 2.0 L Absolute Monos (auto) 0.4 L Absolute Eos (auto) 0.1 Absolute Basos (auto) 0.1 Neutrophils % 66.9 Lymphocytes % 25.9 Monocytes % 5.0 Eosinophils % 1.5 Basophils % 0.7 Sodium 143 Potassium 4.0 Chloride 105 Carbon Dioxide 31 Anion Gap 7 L BUN 28 H Creatinine 1.1 H POC Glucometer 97 Random Glucose 81 D Calcium 8.8 05/24/17 05/24/17 12:14 16:04 WBC RBC Hgb Hct MCV MCH MCHC RDW Plt Count MPV Absolute Neuts (auto) Absolute Lymphs (auto) Absolute Monos (auto) Absolute Eos (auto) Absolute Basos (auto) Neutrophils % Lymphocytes % Monocytes % Eosinophils % Basophils % Sodium Potassium Chloride Carbon Dioxide Anion Gap BUN Creatinine POC Glucometer 116 184 Random Glucose Calcium HOSPITAL COURSE: Date of Admission:05/12/17 Date of Discharge: 05/24/17 51F w/ hx of CAD s/p [place], CVA/TIA, asthma, DVT, schizophrenia, and HTN who presented after a mechanical fall and was found to have R acetabular and right inferior pubic ramus fracture. Per orthopedic surgery, pt was treated conservatively with pain control and physical therapy. Pt was evaluated by psych and deemed to be acutely suicidal requiring 1:1 observation. Several days later, after re-evaluation by psych, pt was deemed to be no longer suicidal. During her hospitalization, she developed a UTI growing enterococcus on Ucx. Pt treated with vancomycin. Today, pt has normal vitals, is stable, and is ready for discharge to [facility]. She is to complete her course of vancomycin. -Deondre Moya MD PGY1 Minutes to complete discharge: 38 Discharge Summary Reason For Visit: FRACTURE OF PELVIS Current Active Problems Auditory hallucinations (Acute) Fall (Acute) Pelvic fracture (Acute) Pre-operative cardiovascular examination (Acute) Suicidal ideations (Acute) Asthma (Chronic) Bipolar 1 disorder, depressed (Chronic) Bipolar disorder (Chronic) CAD (coronary artery disease) (Chronic) COPD (chronic obstructive pulmonary disease) (Chronic) Chronic low back pain (Chronic) DVT (deep venous thrombosis) (Chronic) Diabetes type 2, controlled (Chronic) HTN (hypertension) (Chronic) Hyperlipidemia (Chronic) - Instructions Diet, Activity, Other Instructions: You were admitted to the hospital after a fall and found to have a non- displaced right acetabulum fracture. Surgery decided that it did not require surgery, and so you were managed with physical therapy and pain control. You were also found to have a UTI, for which you are currently receiving a course of antibiotics. Medications: Please continue taking your previous home medications as prescribed. In addition , vancomycin IV prescribed for you for 5 more days to finish a course of antibiotics for a UTI. Follow-up: 1. Please follow-up with your primary care provider in one week. If you require a referral for a primary care provider, contact information for Dr. Rees has been provided to you. Please call this number to schedule an appointment in one week. 2. Please follow up with psychiatry within two weeks. If you don't have one, we have referred you to Dr. Chacko. 3. Please follow up with orthopedic surgery within two weeks. We have referred you to [facility]. Diet: Please conform to a low salt, low carbohydrate diet and avoid refined foods with high sugar content. Exercise: You are approved for walking with partial weight-bearing on your right leg. Please return to the hospital if you have any worsening pain, swelling, numbness in your right leg or you feel that your leg is become cold to touch, or if you experience any new symptoms. Referrals: Suleiman Rees MD [Staff Physician] - 1 Week Thien eMi PA [Physician Optical Glass Etcher] - 2 Weeks Irene Chacko MD [Staff Physician] - Disposition: [facility] - Home Medications Comprehensive Discharge Medication List: Ambulatory Orders Albuterol Sulfate Inhaler - [Ventolin HFA Inhaler -] 1 puff IH Q4H 03/15/17 Benztropine Mesylate [Cogentin -] 1 mg PO DAILY 03/15/17 Budesonide/Formeterol Fumarate [SYMBICORT 80/4.5mcg -] 1 inh PO DAILY 03/15/17 Bupropion HCl [Bupropion HCl Sr] 400 mg PO DAILY 03/15/17 Clonazepam [Klonopin] 1 mg PO BID 03/15/17 Docusate Sodium [Colace -] 300 mg PO HS 03/15/17 Ferrous Sulfate 325 mg PO DAILY 03/15/17 Furosemide [Lasix] 40 mg PO DAILY 03/15/17 Gabapentin [Neurontin] 300 mg PO TID 03/15/17 Metoprolol Succinate [Toprol XL -] 12.5 mg PO BID 03/15/17 Morphine *Sr* [MS Contin -] 15 mg PO Q6H 03/15/17 Nitroglycerin [Nitrostat] 0.6 mg SL PRN PRN 03/15/17 Polyethylene Glycol 3350 [Miralax 119 gm Btl -] 17 gm PO DAILY 03/15/17 Quetiapine Fumarate [Seroquel] 300 tab PO HS 03/15/17 Sennosides [Senna -] 2 tab PO HS 03/15/17 Simvastatin [Zocor -] 40 mg PO HS 03/15/17 Apixaban [Eliquis] 5 mg PO BID 03/16/17 Divalproex [Depakote -] 750 mg PO HS 03/16/17 Levothyroxine [Synthroid -] 50 mcg PO DAILY 03/16/17 Pantoprazole Sodium [Protonix] 40 mg PO DAILY 03/16/17 Fluoxetine HCl [Prozac -] 40 mg PO DAILY 04/24/17 Metformin HCl [Glucophage -] 500 mg PO BID 04/24/17 Tizanidine HCl [Zanaflex] 2 mg PO TID PRN 05/13/17 Vancomycin 1,250 mg IVPB DAILY@1300 3 Days vial 05/24/17 This patient is new to me today: No Emergency Visit: Yes ED Registration Date: 05/12/17 Care time: The patient presented to the Emergency Department on the above date and was hospitalized for further evaluation of their emergent condition. Critical Care patient: No - Discharge Referral Referred to [facility] Med [facility] No
--- NOTE | 2017-05-24 21:18 | PN ---
Teaching Attending Note Name of Resident: Deondre Moya ATTENDING PHYSICIAN STATEMENT I saw and evaluated the patient. I reviewed the resident's note and discussed the case with the resident. I agree with the resident's findings and plan as documented. SUBJECTIVE: Patient continues to feel well, no acute distress. No fever or chills, no shortness of breath. OBJECTIVE: Vital Signs Temperature 98.5 F 05/24/17 19:20 Pulse Rate 89 05/24/17 19:20 Respiratory Rate 20 05/24/17 19:20 Blood Pressure 111/73 05/24/17 19:20 O2 Sat by Pulse Oximetry (%) 100 05/23/17 21:00 CBCD WBC 7.8 K/mm3 (4.0-10.0) 05/24/17 08:20 RBC 4.15 M/mm3 (3.60-5.2) 05/24/17 08:20 Hgb 11.9 GM/dL (10.7-15.3) 05/24/17 08:20 Hct 35.0 % (32.4-45.2) 05/24/17 08:20 MCV 84.2 fl (80-96) 05/24/17 08:20 MCHC 34.0 g/dl (32.0-36.0) 05/24/17 08:20 RDW 16.0 % (11.6-15.6) H 05/24/17 08:20 Plt Count 207 K/MM3 (134-434) D 05/24/17 08:20 MPV 10.3 fl (7.5-11.1) 05/24/17 08:20 CMP Sodium 143 mmol/L (136-145) 05/24/17 08:20 Potassium 4.0 mmol/L (3.5-5.1) 05/24/17 08:20 Chloride 105 mmol/L (98-107) 05/24/17 08:20 Carbon Dioxide 31 mmol/L (21-32) 05/24/17 08:20 Anion Gap 7 (8-16) L 05/24/17 08:20 BUN 28 mg/dL (7-18) H 05/24/17 08:20 Creatinine 1.1 mg/dL (0.55-1.02) H 05/24/17 08:20 Creat Clearance w eGFR 47.55 (>60) 05/13/17 06:00 Random Glucose 81 mg/dL (74-106) D 05/24/17 08:20 Calcium 8.8 mg/dL (8.5-10.1) 05/24/17 08:20 Total Bilirubin 0.7 mg/dL (0.2-1.0) D 05/13/17 06:00 AST 10 U/L (15-37) L D 05/13/17 06:00 ALT 15 U/L (12-78) 05/13/17 06:00 Alkaline Phosphatase 99 U/L (45-117) 05/13/17 06:00 Total Protein 7.0 g/dl (6.4-8.2) 05/13/17 06:00 Albumin 3.5 g/dl (3.4-5.0) 05/13/17 06:00 Current Medications Generic Name Dose Route Start Last Admin Trade Name Freq PRN Reason Stop Dose Admin Albuterol Sulfate 2 puff 05/13/17 07:15 05/24/17 21:03 Ventolin Hfa Inhaler - IH Not Given Q4H BHARAT Apixaban 5 mg 05/18/17 10:00 05/24/17 11:03 Eliquis - PO 5 mg BID BHARAT Administration Atorvastatin Calcium 20 mg 05/13/17 22:00 05/23/17 21:47 Lipitor - PO 20 mg HS BHARAT Administration Baclofen 10 mg 05/17/17 22:00 05/24/17 15:04 Lioresal - PO 10 mg TID BHARAT Administration Benztropine Mesylate 1 mg 05/20/17 10:00 05/24/17 11:04 Cogentin - PO 1 mg DAILY BHARAT Administration Budesonide/Formoterol Fumarate 1 puff 05/13/17 10:00 05/24/17 11:15 Symbicort 80/4.5mcg - IH Not Given DAILY BHARAT Bupropion HCl 300 mg 05/17/17 10:00 05/24/17 10:58 Wellbutrin Xl - PO 300 mg DAILY BHARAT Administration Clonazepam 1 mg 05/14/17 10:00 05/24/17 11:00 Klonopin - PO 1 mg BID BHARAT Administration Divalproex Sodium 750 mg 05/14/17 22:00 05/23/17 21:48 Depakote - PO 750 mg HS BHARAT Administration Docusate Sodium 300 mg 05/13/17 22:00 05/23/17 21:45 Colace - PO 300 mg HS BHARAT Administration Ferrous Sulfate 325 mg 05/13/17 10:00 05/24/17 10:59 Feosol - PO 325 mg DAILY BHARAT Administration Fluoxetine HCl 40 mg 05/14/17 10:00 05/24/17 10:59 Prozac - PO 40 mg DAILY BHARAT Administration Gabapentin 300 mg 05/14/17 14:00 05/24/17 15:04 Neurontin - PO 300 mg TID BHARAT Administration Vancomycin HCl 1,250 mg/ 250 mls @ 166.667 mls/hr 05/23/17 13:00 05/24/17 14: 17 Dextrose IVPB 166.667 mls/hr DAILY@1300 BHARAT Administration Protocol Insulin Aspart 1 vial 05/13/17 07:00 05/24/17 16:05 Novolog Vial Sliding Scale - SQ Not Given ACHS [facility] Protocol Levothyroxine Sodium 50 mcg 05/14/17 07:00 05/24/17 06:01 Synthroid - PO 50 mcg DAILY@0700 BHARAT Administration Meclizine HCl 12.5 mg 05/13/17 02:46 05/24/17 12:24 Antivert - PO 12.5 mg Q6H PRN Administration VERTIGO Metoprolol Succinate 12.5 mg 05/13/17 22:00 05/24/17 10:58 Toprol Xl - PO 12.5 mg BID BHARAT Administration Oxycodone HCl 10 mg 05/15/17 19:18 05/24/17 14:15 Roxicodone - PO 10 mg Q6H PRN Administration PAIN Pantoprazole Sodium 40 mg 05/13/17 10:00 05/24/17 10:59 Protonix - PO 40 mg DAILY BHARAT Administration Polyethylene Glycol 17 gm 05/14/17 10:00 05/24/17 11:06 Miralax (For Daily Use) - PO 17 grams DAILY BHARAT Administration Quetiapine Fumarate 300 mg 05/15/17 22:00 05/23/17 21:47 Seroquel - PO 300 mg HS BHARAT Administration Senna 2 tab 05/13/17 22:00 05/23/17 21:46 Senna - PO 2 tab HS BHARAT Administration Home Medications Medication Instructions Recorded Albuterol Sulfate Inhaler - 1 puff IH Q4H 03/15/17 [Ventolin HFA Inhaler -] Benztropine Mesylate [Cogentin -] 1 mg PO DAILY 03/15/17 Budesonide/Formeterol Fumarate 1 inh PO DAILY 03/15/17 [SYMBICORT 80/4.5mcg -] Bupropion HCl [Bupropion HCl Sr] 400 mg PO DAILY 03/15/17 Clonazepam [Klonopin] 1 mg PO BID 03/15/17 Docusate Sodium [Colace -] 300 mg PO HS 03/15/17 Ferrous Sulfate 325 mg PO DAILY 03/15/17 Furosemide [Lasix] 40 mg PO DAILY 03/15/17 Gabapentin [Neurontin] 300 mg PO TID 03/15/17 Metoprolol Succinate [Toprol XL -] 12.5 mg PO BID 03/15/17 Morphine *Sr* [MS Contin -] 15 mg PO Q6H 03/15/17 Nitroglycerin [Nitrostat] 0.6 mg SL PRN PRN 03/15/17 Polyethylene Glycol 3350 [Miralax 17 gm PO DAILY 03/15/17 119 gm Btl -] Quetiapine Fumarate [Seroquel] 300 tab PO HS 03/15/17 Sennosides [Senna -] 2 tab PO HS 03/15/17 Simvastatin [Zocor -] 40 mg PO HS 03/15/17 Apixaban [Eliquis] 5 mg PO BID 03/16/17 Divalproex [Depakote -] 750 mg PO HS 03/16/17 Levothyroxine [Synthroid -] 50 mcg PO DAILY 03/16/17 Pantoprazole Sodium [Protonix] 40 mg PO DAILY 03/16/17 Fluoxetine HCl [Prozac -] 40 mg PO DAILY 04/24/17 Metformin HCl [Glucophage -] 500 mg PO BID 04/24/17 Tizanidine HCl [Zanaflex] 2 mg PO TID PRN 05/13/17 Vancomycin 1,250 mg IVPB DAILY@1300 3 Days 05/24/17 vial ASSESSMENT AND PLAN: Patient is a 51 y/o lady with h/o CAD, s/p UT, CVA/TIA, asthma, schizophrenia, HTN, who presented after a mechanical fall and was found to have R pelvic Fx # Right Acetabulum nondisplaced Fracture , Right inferior pubic Ramus Fx :as per ortho; no surgeries at this time and partial WB RLE . Ortho . # No further Auditory hallucinations or any suicidal ideation , discontinued Observation 1:1, cont. her home meds bupropion , seroquel, prozac and Klonopin # UTI: completed 5 days of IV Abx. discussed with Dr. Baird. Ucx: growing group D strep or enterococcus, as per Brie to start the patient on Vancomycin day #2 #h/o CAD and UT : cont BB , not on ASA # H/o CVA: no h/o of Afib # Recent DVT as outpt 2 months ago, cont eliquis 5 BID
[2017-05-24] MEDS: SENNOSIDES 8.6MG TABLET (FP) PO SCH (22:06)
[2017-05-24] MEDS: DIVALPROEX SODIUM 250 MG TABLET E.C. (FP) PO SCH (22:06)
[2017-05-24] MEDS: QUEtiapine FUMARATE 100 MG TABLET (FP) PO SCH (22:07)
[2017-05-24] MEDS: DOCUSATE SODIUM 100 MG CAPSULE (FP) PO SCH (22:08)
[2017-05-24] MEDS: ATORVASTATIN CA 20 MG TABLET (FP) PO SCH (22:08)
[2017-05-25] MEDS: ALBUTEROL SO4 18 GM HFA INHALER IH SCH ×8 (04:29→23:15)
[2017-05-25] MEDS: BACLOFEN 10 MG TABLET (FP) PO SCH ×3 (05:56→22:40)
[2017-05-25] MEDS: GABAPENTIN 300 MG CAPSULE (FP) PO SCH ×3 (05:56→22:40)
[2017-05-25] MEDS: oxyCODONE HCL 5 MG TABLET PO PRN ×2 (05:57→12:23)
[2017-05-25] MEDS: INSULIN SLIDING SCALE (NOVOLOG) 1 VIAL SQ SCH ×5 (06:00→23:17)
[2017-05-25] MEDS: LEVOTHYROXINE NA 100 MCG TABLET (FP) PO SCH (06:00)
--- NOTE | 2017-05-25 07:28 | PN ---
Mental Health Exam - Mental Status Exam Alert and Oriented to: Time, Place, Person Cognitive Function: Grossly Intact Patient Appearance: Unkempt Mood: Suspicious, Withdrawn, Apprehensive Affect: Labile Patient Behavior: Restless Speech Pattern: Clear Voice Loudness: Normal Thought Process: Circumstantial, Goal Oriented Thought Disorder: Present (Hearing voices ") Hallucinations: Auditory Suicidal Ideation: Current, Plan ("to strangle myself") Homicidal Ideation: No Plan Insight/Judgement: Impaired Sleep: Fair Appetite: Fair Muscle strength/Tone: Mild Hypotonicity Gait/Station: Deferred
--- NOTE | 2017-05-25 07:31 | PN ---
Progress Note (short form) - Note Progress Note: Client re -consult. Stated my mood is "bad". "the 1-1 lifts my mood". Hearing voices to hurt self with "my hands on my neck" plan. Maintain Constant observation, titrate, add, seroquel to 25mg in the am Continue current regimen. Spoke with [place] ZHAO on floor. Problem List - Problems (1) Auditory hallucinations Code(s): R44.0 - AUDITORY HALLUCINATIONS
[2017-05-25] MEDS ORDERED: PT OWN MED DRAWER 7, Y5N ONE ×4 (10:18→23:08)
[2017-05-25] MEDS: FLUoxetine HCL 20 MG CAPSULE (FP) PO SCH (10:22)
[2017-05-25] MEDS: clonazePAM 0.5 MG TABLET PO SCH ×2 (10:22→22:40)
[2017-05-25] MEDS: METOPROLOL SUCCINATE 25 MG TAB.SR.24H (FP) PO SCH ×2 (10:23→22:43)
[2017-05-25] MEDS: FERROUS SO4 325 MG TABLET (FP) PO SCH (10:23)
[2017-05-25] MEDS: PANTOPRAZOLE 40 MG TABLET (FP) PO SCH (10:23)
[2017-05-25] MEDS: BUDESONIDE/FORMETEROL FUMARATE 80/4.5 mcg INHALER IH SCH (10:24)
[2017-05-25] MEDS: APIXABAN 5 MG TABLET PO SCH ×2 (10:24→22:41)
[2017-05-25] MEDS: POLYETHYLENE GLYCOL 3350 119 GM BTL PO SCH (10:24)
[2017-05-25] MEDS: BENZTROPINE MESYLATE 1 MG TABLET (FP) PO SCH (10:24)
--- NOTE | 2017-05-25 13:44 | PN ---
Progress Note, Physician History of Present Illness: Tearful, reported auditory hallucinations to psychiatrist. - Current Medication List Current Medications: Active Medications Albuterol Sulfate (Ventolin Hfa Inhaler -) 2 puff IH Q4H [facility] Last Admin: 05/25/17 07:35 Dose: Not Given Apixaban (Eliquis -) 5 mg PO BID [facility] Last Admin: 05/25/17 10:24 Dose: 5 mg Atorvastatin Calcium (Lipitor -) 20 mg PO HS [facility] Last Admin: 05/24/17 22:08 Dose: 20 mg Baclofen (Lioresal -) 10 mg PO TID [facility] Last Admin: 05/25/17 05:56 Dose: 10 mg Benztropine Mesylate (Cogentin -) 1 mg PO DAILY [facility] Last Admin: 05/25/17 10:24 Dose: 1 mg Budesonide/Formoterol Fumarate (Symbicort 80/4.5mcg -) 1 puff IH DAILY [facility] Last Admin: 05/25/17 10:24 Dose: Not Given Bupropion HCl (Wellbutrin Xl -) 300 mg PO DAILY [facility] Last Admin: 05/25/17 10:23 Dose: 300 mg Clonazepam (Klonopin -) 1 mg PO BID [facility] Last Admin: 05/25/17 10:22 Dose: 1 mg Divalproex Sodium (Depakote -) 750 mg PO HS [facility] Last Admin: 05/24/17 22:06 Dose: 750 mg Docusate Sodium (Colace -) 300 mg PO HS [facility] Last Admin: 05/24/17 22:08 Dose: 300 mg Ferrous Sulfate (Feosol -) 325 mg PO DAILY [facility] Last Admin: 05/25/17 10:23 Dose: 325 mg Fluoxetine HCl (Prozac -) 40 mg PO DAILY [facility] Last Admin: 05/25/17 10:22 Dose: 40 mg Gabapentin (Neurontin -) 300 mg PO TID [facility] Last Admin: 05/25/17 05:56 Dose: 300 mg Vancomycin HCl 1,250 mg/ (Dextrose) 250 mls @ 166.667 mls/hr IVPB DAILY@1300 [facility] PRN Reason: Protocol Last Admin: 05/24/17 14:17 Dose: 166.667 mls/hr Insulin Aspart (Novolog Vial Sliding Scale -) 1 vial SQ ACHS [facility] PRN Reason: Protocol Last Admin: 05/25/17 06:00 Dose: Not Given Levothyroxine Sodium (Synthroid -) 50 mcg PO DAILY@0700 [facility] Last Admin: 05/25/17 06:00 Dose: 50 mcg Meclizine HCl (Antivert -) 12.5 mg PO Q6H PRN PRN Reason: VERTIGO Last Admin: 05/24/17 12:24 Dose: 12.5 mg Metoprolol Succinate (Toprol Xl -) 12.5 mg PO BID [facility] Last Admin: 05/25/17 10:23 Dose: 12.5 mg Oxycodone HCl (Roxicodone -) 10 mg PO Q6H PRN PRN Reason: PAIN Last Admin: 05/25/17 12:23 Dose: 10 mg Pantoprazole Sodium (Protonix -) 40 mg PO DAILY [facility] Last Admin: 05/25/17 10:23 Dose: 40 mg Polyethylene Glycol (Miralax (For Daily Use) -) 17 gm PO DAILY [facility] Last Admin: 05/25/17 10:24 Dose: Not Given Quetiapine Fumarate (Seroquel -) 300 mg PO HS [facility] Last Admin: 05/24/17 22:07 Dose: 300 mg Senna (Senna -) 2 tab PO [facility] Last Admin: 05/24/17 22:06 Dose: 2 tab - Objective Vital Signs: Vital Signs Temperature 98.7 F 05/25/17 06:00 Pulse Rate 75 05/25/17 06:00 Respiratory Rate 20 05/25/17 06:00 Blood Pressure 128/75 05/25/17 06:00 O2 Sat by Pulse Oximetry (%) 97 05/24/17 21:00 Constitutional: Yes: No Distress, Calm Neck: Yes: Supple Cardiovascular: Yes: Regular Rate and Rhythm Respiratory: Yes: Regular, Diminished Gastrointestinal: Yes: Normal Bowel Sounds, Soft Edema: No Labs: CBC, BMP 05/24/17 08:20 05/24/17 08:20 INR, PTT INR 1.10 (0.82-1.09) 05/13/17 06:00 Problem List - Problems (1) Pelvic fracture Code(s): S32.9XXA - FRACTURE OF UNSP PARTS OF LUMBOSACRAL SPINE AND PELVIS, INIT Qualifiers: Encounter type: subsequent encounter Pelvic bone location: acetabulum Sublocation of acetabulum: posterior wall Fracture type: closed Fracture alignment: nondisplaced Laterality: right (2) 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 Code(s): Z79.01 - [facility] (CURRENT) USE OF ANTICOAGULANTS (3) Bipolar disorder Code(s): F31.9 - BIPOLAR DISORDER, UNSPECIFIED Qualifiers: Active/Remission status: in full remission Most recent bipolar episode type : most recent episode depressed (4) 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 Code(s): E11.9 - TYPE 2 DIABETES MELLITUS WITHOUT COMPLICATIONS Qualifiers: 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 type: type 2 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 complication status: without complication (5) HTN (hypertension) Code(s): I10 - ESSENTIAL (PRIMARY) HYPERTENSION Qualifiers: Hypertension type: essential hypertension Qualified Code(s): I10 - Essential (primary) hypertension (6) Hyperlipidemia Code(s): E78.5 - HYPERLIPIDEMIA, UNSPECIFIED Qualifiers: Hyperlipidemia type: pure hypercholesterolemia Qualified Code(s): E78.00 - Pure hypercholesterolemia, unspecified; E78.0 - Pure hypercholesterolemia (7) ARVIND treated with BiPAP Code(s): G47.33 - OBSTRUCTIVE SLEEP APNEA (ADULT) (PEDIATRIC) (8) Auditory hallucinations Code(s): R44.0 - AUDITORY HALLUCINATIONS (9) Suicidal ideations Code(s): R45.851 - SUICIDAL IDEATIONS (10) DVT (deep venous thrombosis) Code(s): I82.409 - ACUTE EMBOLISM AND THOMBOS UNSP DEEP VN UNSP LOWER EXTREMITY Assessment/Plan 1. Non-displaced Fracture of right acetabulum 2. CAD h/o NH 3. Hypothyroidism 4. Polysubstance abuse, Bipolar disorder and schizophrenia with auditory hallucinations 5. COPD 6. CVA/TIA 7. Migraine headache PLAN: 1. Non-surgical management as per Orthopedics 2. Continue Metoprolol ER 12.5 bid and Atorvastatin 20 qhs 3. Maintain on Eliquis 5 bid for DVT treatment 4. Continue analgesics, psychotropes per psych and eventual psych inpatient care
[2017-05-25] MEDS: morphine SO4 SUSTAINED ACTING 15 MG TABLET.SA PO SCH ×3 (14:03→23:14)
[2017-05-25] MEDS: VANCOMYCIN 1,250 MG in DEXTROSE 5%-WATER - 250 ML IVPB SCH (14:04)
--- NOTE | 2017-05-25 14:45 | PN ---
Progress Note, Physician History of Present Illness: Pt seen and examined. Events noted, notes reviewed. Pt is afebrile, alert. States she is depressed and wants to kill herself but does not want anything because "no one can fix me". When asked she states she has dysuria. - Current Medication List Current Medications: Active Medications Albuterol Sulfate (Ventolin Hfa Inhaler -) 2 puff IH Q4H [facility] Last Admin: 05/25/17 13:49 Dose: Not Given Apixaban (Eliquis -) 5 mg PO BID [facility] Last Admin: 05/25/17 10:24 Dose: 5 mg Atorvastatin Calcium (Lipitor -) 20 mg PO HS [facility] Last Admin: 05/24/17 22:08 Dose: 20 mg Baclofen (Lioresal -) 10 mg PO TID [facility] Last Admin: 05/25/17 14:03 Dose: Not Given Benztropine Mesylate (Cogentin -) 1 mg PO DAILY [facility] Last Admin: 05/25/17 10:24 Dose: 1 mg Budesonide/Formoterol Fumarate (Symbicort 80/4.5mcg -) 1 puff IH DAILY [facility] Last Admin: 05/25/17 10:24 Dose: Not Given Bupropion HCl (Wellbutrin Xl -) 300 mg PO DAILY [facility] Last Admin: 05/25/17 10:23 Dose: 300 mg Clonazepam (Klonopin -) 1 mg PO BID [facility] Last Admin: 05/25/17 10:22 Dose: 1 mg Divalproex Sodium (Depakote -) 750 mg PO [facility] Last Admin: 05/24/17 22:06 Dose: 750 mg Docusate Sodium (Colace -) 300 mg PO [facility] Last Admin: 05/24/17 22:08 Dose: 300 mg Ferrous Sulfate (Feosol -) 325 mg PO DAILY [facility] Last Admin: 05/25/17 10:23 Dose: 325 mg Fluoxetine HCl (Prozac -) 40 mg PO DAILY [facility] Last Admin: 05/25/17 10:22 Dose: 40 mg Gabapentin (Neurontin -) 300 mg PO TID [facility] Last Admin: 05/25/17 14:03 Dose: 300 mg Vancomycin HCl 1,250 mg/ (Dextrose) 250 mls @ 166.667 mls/hr IVPB DAILY@1300 [facility] PRN Reason: Protocol Last Admin: 05/25/17 14:04 Dose: 166.667 mls/hr Insulin Aspart (Novolog Vial Sliding Scale -) 1 vial SQ ACHS [facility] PRN Reason: Protocol Last Admin: 05/25/17 13:49 Dose: Not Given Levothyroxine Sodium (Synthroid -) 50 mcg PO DAILY@0700 [facility] Last Admin: 05/25/17 06:00 Dose: 50 mcg Meclizine HCl (Antivert -) 12.5 mg PO Q6H PRN PRN Reason: VERTIGO Last Admin: 05/24/17 12:24 Dose: 12.5 mg Metoprolol Succinate (Toprol Xl -) 12.5 mg PO BID [facility] Last Admin: 05/25/17 10:23 Dose: 12.5 mg Morphine Sulfate (Ms Contin -) 15 mg PO Q6HPO [facility] Last Admin: 05/25/17 14:03 Dose: 15 mg Pantoprazole Sodium (Protonix -) 40 mg PO DAILY [facility] Last Admin: 05/25/17 10:23 Dose: 40 mg Polyethylene Glycol (Miralax (For Daily Use) -) 17 gm PO DAILY [facility] Last Admin: 05/25/17 10:24 Dose: Not Given Quetiapine Fumarate (Seroquel -) 300 mg PO HS [facility] Last Admin: 05/24/17 22:07 Dose: 300 mg Senna (Senna -) 2 tab PO [facility] Last Admin: 05/24/17 22:06 Dose: 2 tab - Objective Vital Signs: Vital Signs Temperature 98.7 F 05/25/17 06:00 Pulse Rate 75 05/25/17 06:00 Respiratory Rate 20 05/25/17 06:00 Blood Pressure 128/75 05/25/17 06:00 O2 Sat by Pulse Oximetry (%) 97 05/24/17 21:00 Constitutional: Yes: No Distress Cardiovascular: Yes: Regular Rate and Rhythm Respiratory: Yes: Regular Gastrointestinal: Yes: Normal Bowel Sounds, Soft Genitourinary: Yes: WNL Neurological: Yes: Alert Psychiatric: Yes: Suicidal Ideation Labs: CBC, BMP 05/24/17 08:20 05/24/17 08:20 INR, PTT INR 1.10 (0.82-1.09) 05/13/17 06:00 Microbiology 05/21/17 15:15 Urine - Urine Clean Catch Urine Culture - Final Enterococcus Faecalis 05/18/17 20:28 Urine - Urine Clean Catch Urine Culture - Final Contaminated: Please Repeat Problem List - Problems (1) Pelvic fracture Code(s): S32.9XXA - FRACTURE OF UNSP PARTS OF LUMBOSACRAL SPINE AND PELVIS, INIT Qualifiers: Encounter type: subsequent encounter Pelvic bone location: acetabulum Sublocation of acetabulum: posterior wall Fracture type: closed Fracture alignment: nondisplaced Laterality: right (2) Suicidal ideations Code(s): R45.851 - SUICIDAL IDEATIONS (3) Bipolar disorder Code(s): F31.9 - BIPOLAR DISORDER, UNSPECIFIED Qualifiers: Active/Remission status: in full remission Most recent bipolar episode type : most recent episode depressed (4) CAD (coronary artery disease) Code(s): I25.10 - ATHSCL HEART DISEASE OF [place] CORONARY ARTERY W/O ANG PCTRS (5) DVT (deep venous thrombosis) Code(s): I82.409 - ACUTE EMBOLISM AND THOMBOS UNSP DEEP VN UNSP LOWER EXTREMITY (6) Diabetes type 2, controlled Code(s): E11.9 - TYPE 2 DIABETES MELLITUS WITHOUT COMPLICATIONS Qualifiers: 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 complication status: without complication 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 female with multiple medical problems, including nondisplaced acetabular fracture with c/o dysuria Enterococcal UTI Multiple antibiotic allergies - continue Vancomycin IV for now - psychiatry following continue monitor
--- NOTE | 2017-05-25 19:34 | PN ---
Physical Exam: SUBJECTIVE: Patient seen and examined c/o having Dysuria. having suicidal ideation again. Otherwise the patient has no complains. OBJECTIVE: Vital Signs Temperature 97.9 F 05/25/17 18:00 Pulse Rate 94 H 05/25/17 18:00 Respiratory Rate 20 05/25/17 18:00 Blood Pressure 132/75 05/25/17 18:00 O2 Sat by Pulse Oximetry (%) 97 05/25/17 09:00 GENERAL: The patient is awake, alert, and fully oriented, in no acute distress. HEAD: Normal with no signs of trauma. EYES: PERRL, extraocular movements intact, sclera anicteric, conjunctiva clear. ENT: Ears normal, oropharynx clear without exudates, moist mucous membranes. NECK: Trachea midline, full range of motion, supple. LUNGS: Breath sounds equal, clear to auscultation bilaterally, no wheezes, no crackles, no accessory muscle use. HEART: Regular rate and rhythm, S1, S2 without murmur, rub or gallop. ABDOMEN: Soft, nontender, nondistended, normoactive bowel sounds, no guarding, no rebound, no hepatosplenomegaly, no masses. EXTREMITIES: 2+ pulses, warm, well-perfused, right lower hip fx nondisplaced NEUROLOGICAL: Cranial nerves II through XII grossly intact. Normal speech, gait not observed. PSYCH: Normal mood, normal affect. SKIN: Warm, dry, normal turgor, no rashes or lesions noted Laboratory Results - last 24 hr 05/25/17 05/25/17 05:59 11:41 POC Glucometer 85 122 Active Medications Generic Name Dose Route Start Last Admin Trade Name Winston PRN Reason Stop Dose Admin Albuterol Sulfate 2 puff 05/13/17 07:15 05/25/17 16:47 Ventolin Hfa Inhaler - IH Not Given Q4H BHARAT Apixaban 5 mg 05/18/17 10:00 05/25/17 10:24 Eliquis - PO 5 mg BID BHARAT Administration Atorvastatin Calcium 20 mg 05/13/17 22:00 05/24/17 22:08 Lipitor - PO 20 mg HS BHARAT Administration Baclofen 10 mg 05/17/17 22:00 05/25/17 14:03 Lioresal - PO Not Given TID BHARAT Benztropine Mesylate 1 mg 05/20/17 10:00 05/25/17 10:24 Cogentin - PO 1 mg DAILY BHARAT Administration Budesonide/Formoterol Fumarate 1 puff 05/13/17 10:00 05/25/17 10:24 Symbicort 80/4.5mcg - IH Not Given DAILY BHARAT Bupropion HCl 300 mg 05/17/17 10:00 05/25/17 10:23 Wellbutrin Xl - PO 300 mg DAILY BHARAT Administration Clonazepam 1 mg 05/14/17 10:00 05/25/17 10:22 Klonopin - PO 1 mg BID BHARAT Administration Divalproex Sodium 750 mg 05/14/17 22:00 05/24/17 22:06 Depakote - PO 750 mg HS BHARAT Administration Docusate Sodium 300 mg 05/13/17 22:00 05/24/17 22:08 Colace - PO 300 mg HS BHARAT Administration Ferrous Sulfate 325 mg 05/13/17 10:00 05/25/17 10:23 Feosol - PO 325 mg DAILY BHARAT Administration Fluoxetine HCl 40 mg 05/14/17 10:00 05/25/17 10:22 Prozac - PO 40 mg DAILY BHARAT Administration Gabapentin 300 mg 05/14/17 14:00 05/25/17 14:03 Neurontin - PO 300 mg TID BHARAT Administration Vancomycin HCl 1,250 mg/ 250 mls @ 166.667 mls/hr 05/23/17 13:00 05/25/17 14: 04 Dextrose IVPB 166.667 mls/hr DAILY@1300 BHARAT Administration Protocol Insulin Aspart 1 vial 05/13/17 07:00 05/25/17 16:47 Novolog Vial Sliding Scale - SQ Not Given [facility] Protocol Levothyroxine Sodium 50 mcg 05/14/17 07:00 05/25/17 06:00 Synthroid - PO 50 mcg DAILY@0700 BHARAT Administration Meclizine HCl 12.5 mg 05/13/17 02:46 05/24/17 12:24 Antivert - PO 12.5 mg Q6H PRN Administration VERTIGO Metoprolol Succinate 12.5 mg 05/13/17 22:00 05/25/17 10:23 Toprol Xl - PO 12.5 mg BID BHARAT Administration Morphine Sulfate 15 mg 05/25/17 14:00 05/25/17 18:03 Ms Contin - PO 15 mg Q6HPO BHARAT Administration Pantoprazole Sodium 40 mg 05/13/17 10:00 05/25/17 10:23 Protonix - PO 40 mg DAILY BHARAT Administration Polyethylene Glycol 17 gm 05/14/17 10:00 05/25/17 10:24 Miralax (For Daily Use) - PO Not Given DAILY BHARAT Quetiapine Fumarate 300 mg 05/15/17 22:00 05/24/17 22:07 Seroquel - PO 300 mg HS BHARAT Administration Senna 2 tab 05/13/17 22:00 05/24/17 22:06 Senna - PO 2 tab HS BHARAT Administration Home Medications Medication Instructions Recorded Albuterol Sulfate Inhaler - 1 puff IH Q4H 03/15/17 [Ventolin HFA Inhaler -] Benztropine Mesylate [Cogentin -] 1 mg PO DAILY 03/15/17 Budesonide/Formeterol Fumarate 1 inh PO DAILY 03/15/17 [SYMBICORT 80/4.5mcg -] Bupropion HCl [Bupropion HCl Sr] 400 mg PO DAILY 03/15/17 Clonazepam [Klonopin] 1 mg PO BID 03/15/17 Docusate Sodium [Colace -] 300 mg PO HS 03/15/17 Ferrous Sulfate 325 mg PO DAILY 03/15/17 Furosemide [Lasix] 40 mg PO DAILY 03/15/17 Gabapentin [Neurontin] 300 mg PO TID 03/15/17 Metoprolol Succinate [Toprol XL -] 12.5 mg PO BID 03/15/17 Morphine *Sr* [MS Contin -] 15 mg PO Q6H 03/15/17 Nitroglycerin [Nitrostat] 0.6 mg SL PRN PRN 03/15/17 Polyethylene Glycol 3350 [Miralax 17 gm PO DAILY 03/15/17 119 gm Btl -] Quetiapine Fumarate [Seroquel] 300 tab PO HS 03/15/17 Sennosides [Senna -] 2 tab PO HS 03/15/17 Simvastatin [Zocor -] 40 mg PO HS 03/15/17 Apixaban [Eliquis] 5 mg PO BID 03/16/17 Divalproex [Depakote -] 750 mg PO HS 03/16/17 Levothyroxine [Synthroid -] 50 mcg PO DAILY 03/16/17 Pantoprazole Sodium [Protonix] 40 mg PO DAILY 03/16/17 Fluoxetine HCl [Prozac -] 40 mg PO DAILY 04/24/17 Metformin HCl [Glucophage -] 500 mg PO BID 04/24/17 Tizanidine HCl [Zanaflex] 2 mg PO TID PRN 05/13/17 Vancomycin 1,250 mg IVPB DAILY@1300 3 Days 05/24/17 vial ASSESSMENT/PLAN: Patient is a 51 y/o lady with h/o CAD, s/p MS, CVA/TIA, asthma, schizophrenia, HTN, who presented after a mechanical fall and was found to have R pelvic Fx # Right Acetabular nondisplaced Fracture , Right inferior pubic Ramus Fx :as per ortho; no surgery at this time and partial WB RLE . Ortho appreciated. # Continues to have suicidal ideation , will continue Observation 1:1, cont. her home meds bupropion , seroquel, prozac and Klonopin , being seen by [facility]. # Enteroccal UTI with dysuria : on Vancomycin day #3 s/p completed 5 days of IV Abx, Azactam since is allergic to PCN #h/o CAD and MS : cont BB , not on ASA # H/o CVA: no h/o of Afib # Recent DVT 2 months ago, cont eliquis 5mg BID waiting for rehab. Visit type - Emergency Visit Emergency Visit: Yes ED Registration Date: 05/12/17 Care time: The patient presented to the Emergency Department on the above date and was hospitalized for further evaluation of their emergent condition. - New Patient This patient is new to me today: No - Critical Care Critical Care patient: No
[2017-05-25] MEDS: DIVALPROEX SODIUM 250 MG TABLET E.C. (FP) PO SCH (22:40)
[2017-05-25] MEDS: SENNOSIDES 8.6MG TABLET (FP) PO SCH (22:42)
[2017-05-25] MEDS: DOCUSATE SODIUM 100 MG CAPSULE (FP) PO SCH (22:42)
[2017-05-25] MEDS: QUEtiapine FUMARATE 100 MG TABLET (FP) PO SCH (22:42)
[2017-05-25] MEDS: ATORVASTATIN CA 20 MG TABLET (FP) PO SCH (22:42)
[2017-05-26] MEDS: ALBUTEROL SO4 18 GM HFA INHALER IH SCH ×7 (02:06→22:51)
[2017-05-26] MEDS: INSULIN SLIDING SCALE (NOVOLOG) 1 VIAL SQ SCH ×4 (06:15→21:36)
[2017-05-26] MEDS: BACLOFEN 10 MG TABLET (FP) PO SCH ×3 (06:16→21:34)
[2017-05-26] MEDS: GABAPENTIN 300 MG CAPSULE (FP) PO SCH ×3 (06:17→21:35)
[2017-05-26] MEDS: LEVOTHYROXINE NA 100 MCG TABLET (FP) PO SCH (06:17)
[2017-05-26] MEDS: morphine SO4 SUSTAINED ACTING 15 MG TABLET.SA PO SCH ×4 (06:18→23:18)
[2017-05-26] MEDS ORDERED: PT OWN MED DRAWER 7, Y5N ONE (09:02)
[2017-05-26] MEDS: FLUoxetine HCL 20 MG CAPSULE (FP) PO SCH (09:05)
[2017-05-26] MEDS: METOPROLOL SUCCINATE 25 MG TAB.SR.24H (FP) PO SCH ×2 (09:05→21:34)
[2017-05-26] MEDS: PANTOPRAZOLE 40 MG TABLET (FP) PO SCH (09:05)
[2017-05-26] MEDS: FERROUS SO4 325 MG TABLET (FP) PO SCH (09:05)
[2017-05-26] MEDS: clonazePAM 0.5 MG TABLET PO SCH ×2 (09:05→21:33)
[2017-05-26] MEDS: APIXABAN 5 MG TABLET PO SCH ×2 (09:06→21:34)
[2017-05-26] MEDS: BENZTROPINE MESYLATE 1 MG TABLET (FP) PO SCH (09:06)
[2017-05-26] MEDS: POLYETHYLENE GLYCOL 3350 119 GM BTL PO SCH (09:06)
[2017-05-26] MEDS: BUDESONIDE/FORMETEROL FUMARATE 80/4.5 mcg INHALER IH SCH (09:07)
--- NOTE | 2017-05-26 09:17 | PN ---
Progress Note (short form) - Note Progress Note: Patient continues to have suicidal ideation Vital Signs Temperature 98.3 F 05/26/17 08:56 Pulse Rate 90 05/26/17 08:56 Respiratory Rate 18 05/26/17 08:56 Blood Pressure 122/64 05/26/17 08:56 O2 Sat by Pulse Oximetry (%) 99 05/25/17 22:30 GENERAL: The patient is awake, alert, and fully oriented, in no acute distress. HEAD: Normal with no signs of trauma. EYES: PERRL, extraocular movements intact, sclera anicteric, conjunctiva clear. ENT: Ears normal, oropharynx clear without exudates, moist mucous membranes. NECK: Trachea midline, full range of motion, supple. LUNGS: Breath sounds equal, clear to auscultation bilaterally, no wheezes, no crackles, no accessory muscle use. HEART: Regular rate and rhythm, S1, S2 without murmur, rub or gallop. ABDOMEN: Soft, nontender, nondistended, normoactive bowel sounds, no guarding, no rebound, no hepatosplenomegaly, no masses. EXTREMITIES: 2+ pulses, warm, well-perfused, right lower hip fx nondisplaced NEUROLOGICAL: Cranial nerves II through XII grossly intact. Normal speech, gait not observed. PSYCH: Normal mood, normal affect. SKIN: Warm, dry, normal turgor, no rashes or lesions noted CBCD WBC 7.8 K/mm3 (4.0-10.0) 05/24/17 08:20 RBC 4.15 M/mm3 (3.60-5.2) 05/24/17 08:20 Hgb 11.9 GM/dL (10.7-15.3) 05/24/17 08:20 Hct 35.0 % (32.4-45.2) 05/24/17 08:20 MCV 84.2 fl (80-96) 05/24/17 08:20 MCHC 34.0 g/dl (32.0-36.0) 05/24/17 08:20 RDW 16.0 % (11.6-15.6) H 05/24/17 08:20 Plt Count 207 K/MM3 (134-434) D 05/24/17 08:20 MPV 10.3 fl (7.5-11.1) 05/24/17 08:20 CMP Sodium 143 mmol/L (136-145) 05/24/17 08:20 Potassium 4.0 mmol/L (3.5-5.1) 05/24/17 08:20 Chloride 105 mmol/L (98-107) 05/24/17 08:20 Carbon Dioxide 31 mmol/L (21-32) 05/24/17 08:20 Anion Gap 7 (8-16) L 05/24/17 08:20 BUN 28 mg/dL (7-18) H 05/24/17 08:20 Creatinine 1.1 mg/dL (0.55-1.02) H 05/24/17 08:20 Creat Clearance w eGFR 47.55 (>60) 05/13/17 06:00 Random Glucose 81 mg/dL (74-106) D 05/24/17 08:20 Calcium 8.8 mg/dL (8.5-10.1) 05/24/17 08:20 Total Bilirubin 0.7 mg/dL (0.2-1.0) D 05/13/17 06:00 AST 10 U/L (15-37) L D 05/13/17 06:00 ALT 15 U/L (12-78) 05/13/17 06:00 Alkaline Phosphatase 99 U/L (45-117) 05/13/17 06:00 Total Protein 7.0 g/dl (6.4-8.2) 05/13/17 06:00 Albumin 3.5 g/dl (3.4-5.0) 05/13/17 06:00 Current Medications Generic Name Dose Route Start Last Admin Trade Name Winston PRN Reason Stop Dose Admin Albuterol Sulfate 2 puff 05/13/17 07:15 05/26/17 06:20 Ventolin Hfa Inhaler - IH 2 puff Q4H BHARAT Administration Apixaban 5 mg 05/18/17 10:00 05/26/17 09:06 Eliquis - PO 5 mg BID BHARAT Administration Atorvastatin Calcium 20 mg 05/13/17 22:00 05/25/17 22:42 Lipitor - PO 20 mg HS BHARAT Administration Baclofen 10 mg 05/17/17 22:00 05/26/17 06:16 Lioresal - PO 10 mg TID BHARAT Administration Benztropine Mesylate 1 mg 05/20/17 10:00 05/26/17 09:06 Cogentin - PO 1 mg DAILY BHARAT Administration Budesonide/Formoterol Fumarate 1 puff 05/13/17 10:00 05/26/17 09:07 Symbicort 80/4.5mcg - IH Not Given DAILY BHARAT Bupropion HCl 300 mg 05/17/17 10:00 05/26/17 09:06 Wellbutrin Xl - PO 300 mg DAILY BHARAT Administration Clonazepam 1 mg 05/14/17 10:00 05/26/17 09:05 Klonopin - PO 1 mg BID BHARAT Administration Divalproex Sodium 750 mg 05/14/17 22:00 05/25/17 22:40 Depakote - PO 750 mg HS BHARAT Administration Docusate Sodium 300 mg 05/13/17 22:00 05/25/17 22:42 Colace - PO 300 mg HS BHARAT Administration Ferrous Sulfate 325 mg 05/13/17 10:00 05/26/17 09:05 Feosol - PO 325 mg DAILY BHARAT Administration Fluoxetine HCl 40 mg 05/14/17 10:00 05/26/17 09:05 Prozac - PO 40 mg DAILY BHARAT Administration Gabapentin 300 mg 05/14/17 14:00 05/26/17 06:17 Neurontin - PO 300 mg TID BHARAT Administration Vancomycin HCl 1,250 mg/ 250 mls @ 166.667 mls/hr 05/23/17 13:00 05/25/17 14: 04 Dextrose IVPB 166.667 mls/hr DAILY@1300 BHARAT Administration Protocol Insulin Aspart 1 vial 05/13/17 07:00 05/26/17 06:15 Novolog Vial Sliding Scale - SQ Not Given ACHS [facility] Protocol Levothyroxine Sodium 50 mcg 05/14/17 07:00 05/26/17 06:17 Synthroid - PO 50 mcg DAILY@0700 BHARAT Administration Meclizine HCl 12.5 mg 05/13/17 02:46 05/24/17 12:24 Antivert - PO 12.5 mg Q6H PRN Administration VERTIGO Metoprolol Succinate 12.5 mg 05/13/17 22:00 05/26/17 09:05 Toprol Xl - PO 12.5 mg BID BHARAT Administration Morphine Sulfate 15 mg 05/25/17 14:00 05/26/17 06:18 Ms Contin - PO 15 mg Q6HPO BHARAT Administration Pantoprazole Sodium 40 mg 05/13/17 10:00 05/26/17 09:05 Protonix - PO 40 mg DAILY BHARAT Administration Polyethylene Glycol 17 gm 05/14/17 10:00 05/26/17 09:06 Miralax (For Daily Use) - PO Not Given DAILY BHARAT Quetiapine Fumarate 300 mg 05/15/17 22:00 05/25/17 22:42 Seroquel - PO 300 mg HS BHARAT Administration Senna 2 tab 05/13/17 22:00 05/25/17 22:42 Senna - PO 2 tab HS BHARAT Administration Home Medications Medication Instructions Recorded Albuterol Sulfate Inhaler - 1 puff IH Q4H 03/15/17 [Ventolin HFA Inhaler -] Benztropine Mesylate [Cogentin -] 1 mg PO DAILY 03/15/17 Budesonide/Formeterol Fumarate 1 inh PO DAILY 03/15/17 [SYMBICORT 80/4.5mcg -] Bupropion HCl [Bupropion HCl Sr] 400 mg PO DAILY 03/15/17 Clonazepam [Klonopin] 1 mg PO BID 03/15/17 Docusate Sodium [Colace -] 300 mg PO HS 03/15/17 Ferrous Sulfate 325 mg PO DAILY 03/15/17 Furosemide [Lasix] 40 mg PO DAILY 03/15/17 Gabapentin [Neurontin] 300 mg PO TID 03/15/17 Metoprolol Succinate [Toprol XL -] 12.5 mg PO BID 03/15/17 Morphine *Sr* [MS Contin -] 15 mg PO Q6H 03/15/17 Nitroglycerin [Nitrostat] 0.6 mg SL PRN PRN 03/15/17 Polyethylene Glycol 3350 [Miralax 17 gm PO DAILY 03/15/17 119 gm Btl -] Quetiapine Fumarate [Seroquel] 300 tab PO HS 03/15/17 Sennosides [Senna -] 2 tab PO HS 03/15/17 Simvastatin [Zocor -] 40 mg PO HS 03/15/17 Apixaban [Eliquis] 5 mg PO BID 03/16/17 Divalproex [Depakote -] 750 mg PO HS 03/16/17 Levothyroxine [Synthroid -] 50 mcg PO DAILY 03/16/17 Pantoprazole Sodium [Protonix] 40 mg PO DAILY 03/16/17 Fluoxetine HCl [Prozac -] 40 mg PO DAILY 04/24/17 Metformin HCl [Glucophage -] 500 mg PO BID 04/24/17 Tizanidine HCl [Zanaflex] 2 mg PO TID PRN 05/13/17 Vancomycin 1,250 mg IVPB DAILY@1300 3 Days 05/24/17 vial A/P: Patient is a 51 y/o lady with h/o CAD, s/p [place], CVA/TIA, asthma, schizophrenia, HTN, who presented after a mechanical fall and was found to have R pelvic Fx # Right Acetabular nondisplaced Fracture , Right inferior pubic Ramus Fx :as per ortho; no surgery at this time and partial WB RLE . Ortho appreciated. # Continues to have suicidal ideation , will place her back to Observation 1:1, cont. her home meds bupropion , seroquel, prozac and Klonopin , being seen by [facility]. # Enteroccal UTI with dysuria : on Vancomycin day #4 continue s/p completed 5 days of IV Abx, Azactam since is allergic to PCN #h/o CAD and [place] : cont BB , not on ASA # H/o CVA: no h/o of Afib # Recent DVT 2 months ago, cont eliquis 5mg BID waiting for rehab. Visit type - Emergency Visit Emergency Visit: Yes ED Registration Date: 05/12/17 Care time: The patient presented to the Emergency Department on the above date and was hospitalized for further evaluation of their emergent condition. - New Patient This patient is new to me today: No - Critical Care Critical Care patient: No
--- NOTE | 2017-05-26 12:32 | PN ---
Progress Note, Physician History of Present Illness: Eating lunch, no complaints. - Current Medication List Current Medications: Active Medications Albuterol Sulfate (Ventolin Hfa Inhaler -) 2 puff IH Q4H [facility] Last Admin: 05/26/17 11:19 Dose: 2 puff Apixaban (Eliquis -) 5 mg PO BID [facility] Last Admin: 05/26/17 09:06 Dose: 5 mg Atorvastatin Calcium (Lipitor -) 20 mg PO HS [facility] Last Admin: 05/25/17 22:42 Dose: 20 mg Baclofen (Lioresal -) 10 mg PO TID [facility] Last Admin: 05/26/17 06:16 Dose: 10 mg Benztropine Mesylate (Cogentin -) 1 mg PO DAILY [facility] Last Admin: 05/26/17 09:06 Dose: 1 mg Budesonide/Formoterol Fumarate (Symbicort 80/4.5mcg -) 1 puff IH DAILY [facility] Last Admin: 05/26/17 09:07 Dose: Not Given Bupropion HCl (Wellbutrin Xl -) 300 mg PO DAILY [facility] Last Admin: 05/26/17 09:06 Dose: 300 mg Clonazepam (Klonopin -) 1 mg PO BID [facility] Last Admin: 05/26/17 09:05 Dose: 1 mg Divalproex Sodium (Depakote -) 750 mg PO [facility] Last Admin: 05/25/17 22:40 Dose: 750 mg Docusate Sodium (Colace -) 300 mg PO HS [facility] Last Admin: 05/25/17 22:42 Dose: 300 mg Ferrous Sulfate (Feosol -) 325 mg PO DAILY [facility] Last Admin: 05/26/17 09:05 Dose: 325 mg Fluoxetine HCl (Prozac -) 40 mg PO DAILY [facility] Last Admin: 05/26/17 09:05 Dose: 40 mg Gabapentin (Neurontin -) 300 mg PO TID [facility] Last Admin: 05/26/17 06:17 Dose: 300 mg Vancomycin HCl 1,250 mg/ (Dextrose) 250 mls @ 166.667 mls/hr IVPB DAILY@1300 [facility] PRN Reason: Protocol Last Admin: 05/25/17 14:04 Dose: 166.667 mls/hr Insulin Aspart (Novolog Vial Sliding Scale -) 1 vial SQ ACHS [facility] PRN Reason: Protocol Last Admin: 05/26/17 11:19 Dose: Not Given Levothyroxine Sodium (Synthroid -) 50 mcg PO DAILY@0700 [facility] Last Admin: 05/26/17 06:17 Dose: 50 mcg Meclizine HCl (Antivert -) 12.5 mg PO Q6H PRN PRN Reason: VERTIGO Last Admin: 05/24/17 12:24 Dose: 12.5 mg Metoprolol Succinate (Toprol Xl -) 12.5 mg PO BID [facility] Last Admin: 05/26/17 09:05 Dose: 12.5 mg Morphine Sulfate (Ms Contin -) 15 mg PO Q6HPO [facility] Last Admin: 05/26/17 11:16 Dose: 15 mg Pantoprazole Sodium (Protonix -) 40 mg PO DAILY [facility] Last Admin: 05/26/17 09:05 Dose: 40 mg Polyethylene Glycol (Miralax (For Daily Use) -) 17 gm PO DAILY [facility] Last Admin: 05/26/17 09:06 Dose: Not Given Quetiapine Fumarate (Seroquel -) 300 mg PO [facility] Last Admin: 05/25/17 22:42 Dose: 300 mg Senna (Senna -) 2 tab PO [facility] Last Admin: 05/25/17 22:42 Dose: 2 tab - Objective Vital Signs: Vital Signs Temperature 98.3 F 05/26/17 08:56 Pulse Rate 90 05/26/17 08:56 Respiratory Rate 18 05/26/17 08:56 Blood Pressure 122/64 05/26/17 08:56 O2 Sat by Pulse Oximetry (%) 95 05/26/17 09:00 Constitutional: Yes: No Distress, Calm Neck: Yes: Supple Cardiovascular: Yes: Regular Rate and Rhythm Respiratory: Yes: Regular, Diminished Gastrointestinal: Yes: Normal Bowel Sounds, Soft Edema: No Labs: CBC, BMP 05/24/17 08:20 05/24/17 08:20 INR, PTT INR 1.10 (0.82-1.09) 05/13/17 06:00 Problem List - Problems (1) Pelvic fracture Code(s): S32.9XXA - FRACTURE OF UNSP PARTS OF LUMBOSACRAL SPINE AND PELVIS, INIT Qualifiers: Encounter type: subsequent encounter Pelvic bone location: acetabulum Sublocation of acetabulum: posterior wall Fracture type: closed Fracture alignment: nondisplaced Laterality: right (2) Hx of alf use of 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 Code(s): Z79.01 - [employer] (CURRENT) USE OF ANTICOAGULANTS (3) Bipolar disorder Code(s): F31.9 - BIPOLAR DISORDER, UNSPECIFIED Qualifiers: Active/Remission status: in full remission Most recent bipolar episode type : most recent episode depressed (4) HTN (hypertension) Code(s): I10 - ESSENTIAL (PRIMARY) HYPERTENSION Qualifiers: Hypertension type: essential hypertension Qualified Code(s): I10 - Essential (primary) hypertension (5) Hyperlipidemia Code(s): E78.5 - HYPERLIPIDEMIA, UNSPECIFIED Qualifiers: Hyperlipidemia type: pure hypercholesterolemia Qualified Code(s): E78.00 - Pure hypercholesterolemia, unspecified; E78.0 - Pure hypercholesterolemia (6) ARVIND treated with BiPAP Code(s): G47.33 - OBSTRUCTIVE SLEEP APNEA (ADULT) (PEDIATRIC) (7) Auditory hallucinations Code(s): R44.0 - AUDITORY HALLUCINATIONS (8) Suicidal ideations Code(s): R45.851 - SUICIDAL IDEATIONS (9) DVT (deep venous thrombosis) Code(s): I82.409 - ACUTE EMBOLISM AND THOMBOS UNSP DEEP VN UNSP LOWER EXTREMITY (10) Enterococcus UTI Code(s): N39.0 - URINARY TRACT INFECTION, SITE NOT SPECIFIED; B95.2 - ENTEROCOCCUS THE CAUSE OF DISEASES CLASSIFIED ELSEWHERE Assessment/Plan 1. Non-displaced Fracture of right acetabulum 2. CAD h/o [place] 3. Hypothyroidism 4. Polysubstance abuse, Bipolar disorder and schizophrenia with auditory hallucinations 5. COPD 6. CVA/TIA 7. Migraine headache 8. Enterococcal UTI PLAN: 1. Non-surgical management as per Orthopedics 2. Continue Metoprolol ER 12.5 bid and Atorvastatin 20 qhs 3. Maintain on Eliquis 5 bid for DVT treatment 4. Continue analgesics, psychotropes per psych and eventual psych inpatient care 5. Abx course per ID
[2017-05-26] MEDS: VANCOMYCIN 1,250 MG in DEXTROSE 5%-WATER - 250 ML IVPB SCH ×2 (13:33→17:02)
--- NOTE | 2017-05-26 13:38 | PN ---
Progress Note, Physician History of Present Illness: Pt alert, no new complaints. - Current Medication List Current Medications: Active Medications Albuterol Sulfate (Ventolin Hfa Inhaler -) 2 puff IH Q4H [facility] Last Admin: 05/26/17 11:19 Dose: 2 puff Apixaban (Eliquis -) 5 mg PO BID [facility] Last Admin: 05/26/17 09:06 Dose: 5 mg Atorvastatin Calcium (Lipitor -) 20 mg PO HS [facility] Last Admin: 05/25/17 22:42 Dose: 20 mg Baclofen (Lioresal -) 10 mg PO TID [facility] Last Admin: 05/26/17 13:33 Dose: 10 mg Benztropine Mesylate (Cogentin -) 1 mg PO DAILY [facility] Last Admin: 05/26/17 09:06 Dose: 1 mg Budesonide/Formoterol Fumarate (Symbicort 80/4.5mcg -) 1 puff IH DAILY [facility] Last Admin: 05/26/17 09:07 Dose: Not Given Bupropion HCl (Wellbutrin Xl -) 300 mg PO DAILY [facility] Last Admin: 05/26/17 09:06 Dose: 300 mg Clonazepam (Klonopin -) 1 mg PO BID [facility] Last Admin: 05/26/17 09:05 Dose: 1 mg Divalproex Sodium (Depakote -) 750 mg PO [facility] Last Admin: 05/25/17 22:40 Dose: 750 mg Docusate Sodium (Colace -) 300 mg PO HS [facility] Last Admin: 05/25/17 22:42 Dose: 300 mg Ferrous Sulfate (Feosol -) 325 mg PO DAILY [facility] Last Admin: 05/26/17 09:05 Dose: 325 mg Fluoxetine HCl (Prozac -) 40 mg PO DAILY [facility] Last Admin: 05/26/17 09:05 Dose: 40 mg Gabapentin (Neurontin -) 300 mg PO TID [facility] Last Admin: 05/26/17 13:33 Dose: 300 mg Vancomycin HCl 1,250 mg/ (Dextrose) 250 mls @ 166.667 mls/hr IVPB DAILY@1300 [facility] PRN Reason: Protocol Last Admin: 05/26/17 13:33 Dose: 166.667 mls/hr Insulin Aspart (Novolog Vial Sliding Scale -) 1 vial SQ ACHS [facility] PRN Reason: Protocol Last Admin: 05/26/17 11:19 Dose: Not Given Levothyroxine Sodium (Synthroid -) 50 mcg PO DAILY@0700 [facility] Last Admin: 05/26/17 06:17 Dose: 50 mcg Meclizine HCl (Antivert -) 12.5 mg PO Q6H PRN PRN Reason: VERTIGO Last Admin: 05/24/17 12:24 Dose: 12.5 mg Metoprolol Succinate (Toprol Xl -) 12.5 mg PO BID [facility] Last Admin: 05/26/17 09:05 Dose: 12.5 mg Morphine Sulfate (Ms Contin -) 15 mg PO Q6HPO [facility] Last Admin: 05/26/17 11:16 Dose: 15 mg Pantoprazole Sodium (Protonix -) 40 mg PO DAILY [facility] Last Admin: 05/26/17 09:05 Dose: 40 mg Polyethylene Glycol (Miralax (For Daily Use) -) 17 gm PO DAILY [facility] Last Admin: 05/26/17 09:06 Dose: Not Given Quetiapine Fumarate (Seroquel -) 300 mg PO [facility] Last Admin: 05/25/17 22:42 Dose: 300 mg Senna (Senna -) 2 tab PO [facility] Last Admin: 05/25/17 22:42 Dose: 2 tab - Objective Vital Signs: Vital Signs Temperature 98.3 F 05/26/17 08:56 Pulse Rate 90 05/26/17 08:56 Respiratory Rate 18 05/26/17 08:56 Blood Pressure 122/64 05/26/17 08:56 O2 Sat by Pulse Oximetry (%) 95 05/26/17 09:00 Constitutional: Yes: No Distress Cardiovascular: Yes: Regular Rate and Rhythm Respiratory: Yes: Regular Gastrointestinal: Yes: Normal Bowel Sounds, Soft Neurological: Yes: Alert Labs: CBC, BMP 05/24/17 08:20 05/24/17 08:20 INR, PTT INR 1.10 (0.82-1.09) 05/13/17 06:00 Problem List - Problems (1) Pelvic fracture Code(s): S32.9XXA - FRACTURE OF UNSP PARTS OF LUMBOSACRAL SPINE AND PELVIS, INIT Qualifiers: Encounter type: subsequent encounter Pelvic bone location: acetabulum Sublocation of acetabulum: posterior wall Fracture type: closed Fracture alignment: nondisplaced Laterality: right (2) Suicidal ideations Code(s): R45.851 - SUICIDAL IDEATIONS (3) Bipolar disorder Code(s): F31.9 - BIPOLAR DISORDER, UNSPECIFIED Qualifiers: Active/Remission status: in full remission Most recent bipolar episode type : most recent episode depressed (4) CAD (coronary artery disease) Code(s): I25.10 - ATHSCL HEART DISEASE OF [place] CORONARY ARTERY W/O ANG PCTRS (5) DVT (deep venous thrombosis) Code(s): I82.409 - ACUTE EMBOLISM AND THOMBOS UNSP DEEP VN UNSP LOWER EXTREMITY (6) Diabetes type 2, controlled Code(s): E11.9 - TYPE 2 DIABETES MELLITUS WITHOUT COMPLICATIONS Qualifiers: 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 complication status: without complication 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 detention insulin use: without detention use Qualified Code(s): E11.9 - Type 2 diabetes mellitus without complications (7) Enterococcus UTI Code(s): N39.0 - URINARY TRACT INFECTION, SITE NOT SPECIFIED; B95.2 - ENTEROCOCCUS THE CAUSE OF DISEASES CLASSIFIED ELSEWHERE Assessment/Plan 51 y.o. female with multiple medical problems, including nondisplaced acetabular fracture with c/o dysuria Enterococcal UTI Multiple antibiotic allergies continue Vancomycin - pt afebrile, without leukocytosis continue monitor
[2017-05-26] MEDS: DIVALPROEX SODIUM 250 MG TABLET E.C. (FP) PO SCH (21:33)
[2017-05-26] MEDS: SENNOSIDES 8.6MG TABLET (FP) PO SCH (21:33)
[2017-05-26] MEDS: DOCUSATE SODIUM 100 MG CAPSULE (FP) PO SCH (21:34)
[2017-05-26] MEDS: QUEtiapine FUMARATE 100 MG TABLET (FP) PO SCH (21:35)
[2017-05-26] MEDS: ATORVASTATIN CA 20 MG TABLET (FP) PO SCH (21:36)
[2017-05-27] MEDS: ALBUTEROL SO4 18 GM HFA INHALER IH SCH ×5 (02:58→18:52)
[2017-05-27] MEDS: GABAPENTIN 300 MG CAPSULE (FP) PO SCH ×3 (06:43→22:00)
[2017-05-27] MEDS: BACLOFEN 10 MG TABLET (FP) PO SCH ×3 (06:43→22:06)
[2017-05-27] MEDS: morphine SO4 SUSTAINED ACTING 15 MG TABLET.SA PO SCH ×3 (06:43→18:51)
[2017-05-27] MEDS: INSULIN SLIDING SCALE (NOVOLOG) 1 VIAL SQ SCH ×4 (06:43→22:06)
[2017-05-27] MEDS: LEVOTHYROXINE NA 100 MCG TABLET (FP) PO SCH (06:44)
[2017-05-27 08:51] LABS: ALBUMIN 2.8 g/dl (3.4-5.0); ANION GAP 6 (8-16); CALCIUM 8.4 mg/dL (8.5-10.1); CO2 31 mmol/L (21-32); GLUCOSE,RANDOM 81 mg/dL (74-106)
[2017-05-27 08:54] LABS: ALK PHOS 115 U/L (45-117); BILIRUBIN,TOTAL 0.3 mg/dL (0.2-1.0); CREATININE 1.1 mg/dL (0.55-1.02); PHOSPHOROUS 4.7 mg/dL (2.5-4.9); SGOT/AST 13 U/L (15-37); SGPT/ALT 25 U/L (12-78); TOT PROT 6.6 g/dl (6.4-8.2)
[2017-05-27] MEDS: METOPROLOL SUCCINATE 25 MG TAB.SR.24H (FP) PO SCH ×2 (10:18→22:03)
[2017-05-27] MEDS: FLUoxetine HCL 20 MG CAPSULE (FP) PO SCH (10:18)
[2017-05-27] MEDS: BENZTROPINE MESYLATE 1 MG TABLET (FP) PO SCH (10:19)
[2017-05-27] MEDS: clonazePAM 0.5 MG TABLET PO SCH (10:19)
[2017-05-27] MEDS: APIXABAN 5 MG TABLET PO SCH ×2 (10:19→22:00)
[2017-05-27] MEDS: FERROUS SO4 325 MG TABLET (FP) PO SCH (10:19)
[2017-05-27] MEDS: PANTOPRAZOLE 40 MG TABLET (FP) PO SCH (10:19)
[2017-05-27] MEDS: POLYETHYLENE GLYCOL 3350 119 GM BTL PO SCH (10:20)
[2017-05-27] MEDS: BUDESONIDE/FORMETEROL FUMARATE 80/4.5 mcg INHALER IH SCH (10:21)
--- NOTE | 2017-05-27 10:24 | PN ---
Progress Note, Physician History of Present Illness: stable no issues now again 1 to 1 for suicidal thoughts - Current Medication List Current Medications: Active Medications Albuterol Sulfate (Ventolin Hfa Inhaler -) 2 puff IH Q4H [facility] Last Admin: 05/27/17 06:45 Dose: Not Given Apixaban (Eliquis -) 5 mg PO BID [facility] Last Admin: 05/27/17 10:19 Dose: 5 mg Atorvastatin Calcium (Lipitor -) 20 mg PO HS [facility] Last Admin: 05/26/17 21:36 Dose: 20 mg Baclofen (Lioresal -) 10 mg PO TID [facility] Last Admin: 05/27/17 06:43 Dose: 10 mg Benztropine Mesylate (Cogentin -) 1 mg PO DAILY [facility] Last Admin: 05/27/17 10:19 Dose: 1 mg Budesonide/Formoterol Fumarate (Symbicort 80/4.5mcg -) 1 puff IH DAILY [facility] Last Admin: 05/27/17 10:21 Dose: Not Given Bupropion HCl (Wellbutrin Xl -) 300 mg PO DAILY [facility] Last Admin: 05/27/17 10:21 Dose: 300 mg Clonazepam (Klonopin -) 1 mg PO BID [facility] Last Admin: 05/27/17 10:19 Dose: 1 mg Divalproex Sodium (Depakote -) 750 mg PO HS [facility] Last Admin: 05/26/17 21:33 Dose: 750 mg Docusate Sodium (Colace -) 300 mg PO HS [facility] Last Admin: 05/26/17 21:34 Dose: 300 mg Ferrous Sulfate (Feosol -) 325 mg PO DAILY [facility] Last Admin: 05/27/17 10:19 Dose: 325 mg Fluoxetine HCl (Prozac -) 40 mg PO DAILY [facility] Last Admin: 05/27/17 10:18 Dose: 40 mg Gabapentin (Neurontin -) 300 mg PO TID [facility] Last Admin: 05/27/17 06:43 Dose: 300 mg Insulin Aspart (Novolog Vial Sliding Scale -) 1 vial SQ ACHS [facility] PRN Reason: Protocol Last Admin: 05/27/17 06:43 Dose: Not Given Levothyroxine Sodium (Synthroid -) 50 mcg PO DAILY@0700 [facility] Last Admin: 05/27/17 06:44 Dose: 50 mcg Meclizine HCl (Antivert -) 12.5 mg PO Q6H PRN PRN Reason: VERTIGO Last Admin: 05/24/17 12:24 Dose: 12.5 mg Metoprolol Succinate (Toprol Xl -) 12.5 mg PO BID [facility] Last Admin: 05/27/17 10:18 Dose: 12.5 mg Morphine Sulfate (Ms Contin -) 15 mg PO Q6HPO [facility] Last Admin: 05/27/17 06:43 Dose: 15 mg Pantoprazole Sodium (Protonix -) 40 mg PO DAILY [facility] Last Admin: 05/27/17 10:19 Dose: 40 mg Polyethylene Glycol (Miralax (For Daily Use) -) 17 gm PO DAILY [facility] Last Admin: 05/27/17 10:20 Dose: Not Given Quetiapine Fumarate (Seroquel -) 300 mg PO [facility] Last Admin: 05/26/17 21:35 Dose: 300 mg Senna (Senna -) 2 tab PO [facility] Last Admin: 05/26/17 21:33 Dose: 2 tab - Objective Vital Signs: Vital Signs Temperature 98.2 F 05/27/17 09:28 Pulse Rate 80 05/27/17 09:28 Respiratory Rate 16 05/27/17 09:28 Blood Pressure 104/60 05/27/17 09:28 O2 Sat by Pulse Oximetry (%) 98 05/26/17 21:00 Constitutional: Yes: No Distress, Calm Cardiovascular: Yes: Regular Rate and Rhythm Respiratory: Yes: Regular, CTA Bilaterally Gastrointestinal: Yes: Normal Bowel Sounds, Soft Labs: CBC, BMP 05/24/17 08:20 05/27/17 08:00 INR, PTT INR 1.10 (0.82-1.09) 05/13/17 06:00 Assessment/Plan patient with rt sided fracture now with uti and suicidal ideation and one to one patient still with symptoms cx have been send patient allergic to multiple medications allergies asked and noted what patient gets Problem List - Problems (1) Pelvic fracture Code(s): S32.9XXA - FRACTURE OF UNSP PARTS OF LUMBOSACRAL SPINE AND PELVIS, INIT Qualifiers: Encounter type: subsequent encounter Pelvic bone location: acetabulum Sublocation of acetabulum: posterior wall Fracture type: closed Fracture alignment: nondisplaced Laterality: right (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 Code(s): Z79.01 - ASSISTED (CURRENT) USE OF ANTICOAGULANTS (3) Bipolar disorder Code(s): F31.9 - BIPOLAR DISORDER, UNSPECIFIED Qualifiers: Active/Remission status: in full remission Most recent bipolar episode type : most recent episode depressed (4) 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 Code(s): E11.9 - TYPE 2 DIABETES MELLITUS WITHOUT COMPLICATIONS Qualifiers: 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 type: type 2 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 complication status: without complication (5) HTN (hypertension) Code(s): I10 - ESSENTIAL (PRIMARY) HYPERTENSION Qualifiers: Hypertension type: essential hypertension Qualified Code(s): I10 - Essential (primary) hypertension (6) Hyperlipidemia Code(s): E78.5 - HYPERLIPIDEMIA, UNSPECIFIED Qualifiers: Hyperlipidemia type: pure hypercholesterolemia Qualified Code(s): E78.00 - Pure hypercholesterolemia, unspecified; E78.0 - Pure hypercholesterolemia (7) ARVIND treated with BiPAP Code(s): G47.33 - OBSTRUCTIVE SLEEP APNEA (ADULT) (PEDIATRIC) (8) Auditory hallucinations Code(s): R44.0 - AUDITORY HALLUCINATIONS 9 UTI plan will stop abx rest continue as per primary team
--- NOTE | 2017-05-27 11:48 | PN ---
Physical Exam: SUBJECTIVE: Patient seen and examined. No acute events overnight. Pt reports that her pain is 10/10, not being controlled on morphine. She states that she still has SI. OBJECTIVE: Vital Signs Period Temp Pulse Resp BP Sys/Schultz Pulse Ox Last 24 Hr 97.4 F-98.4 F 70-89 16-20 91-147/60-68 98 GENERAL: obese, middle aged female, alert, in no acute distress. HEENT: NC, AT LUNGS: Breath sounds equal, clear to auscultation bilaterally, no wheezes, no crackles, no accessory muscle use. HEART: Regular rate and rhythm, S1, S2 without murmur, rub or gallop. ABDOMEN: obese abdomen, soft, nontender, nondistended, normoactive bowel sounds , no guarding EXTREMITIES: no edema. R leg is externally rotated slightly. NEUROLOGICAL: Normal speech, gait not observed. Laboratory Results - last 24 hr 05/26/17 05/27/17 05/27/17 16:21 06:35 08:00 Sodium 143 Potassium 4.1 Chloride 106 Carbon Dioxide 31 Anion Gap 6 L BUN 28 H Creatinine 1.1 H Creat Clearance w eGFR 52.58 POC Glucometer 105 77 Random Glucose 81 Calcium 8.4 L Phosphorus 4.7 Magnesium 2.0 Total Bilirubin 0.3 D AST 13 L D ALT 25 D Alkaline Phosphatase 115 Total Protein 6.6 Albumin 2.8 L Active Medications Generic Name Dose Route Start Last Admin Trade Name Freq PRN Reason Stop Dose Admin Albuterol Sulfate 2 puff 05/13/17 07:15 05/27/17 06:45 Ventolin Hfa Inhaler - IH Not Given Q4H [facility]ARAT Apixaban 5 mg 05/18/17 10:00 05/27/17 10:19 Eliquis - PO 5 mg BID [facility] Administration Atorvastatin Calcium 20 mg 05/13/17 22:00 05/26/17 21:36 Lipitor - PO 20 mg HS [facility] Administration Baclofen 10 mg 05/17/17 22:00 05/27/17 06:43 Lioresal - PO 10 mg TID [facility] Administration Benztropine Mesylate 1 mg 05/20/17 10:00 05/27/17 10:19 Cogentin - PO 1 mg DAILY [facility] Administration Budesonide/Formoterol Fumarate 1 puff 05/13/17 10:00 05/27/17 10:21 Symbicort 80/4.5mcg - IH Not Given DAILY [facility] Bupropion HCl 300 mg 05/17/17 10:00 05/27/17 10:21 Wellbutrin Xl - PO 300 mg DAILY [facility] Administration Clonazepam 1 mg 05/14/17 10:00 05/27/17 10:19 Klonopin - PO 1 mg BID [facility] Administration Divalproex Sodium 750 mg 05/14/17 22:00 05/26/17 21:33 Depakote - PO 750 mg HS [facility] Administration Docusate Sodium 300 mg 05/13/17 22:00 05/26/17 21:34 Colace - PO 300 mg HS [facility] Administration Ferrous Sulfate 325 mg 05/13/17 10:00 05/27/17 10:19 Feosol - PO 325 mg DAILY [facility] Administration Fluoxetine HCl 40 mg 05/14/17 10:00 05/27/17 10:18 Prozac - PO 40 mg DAILY [facility] Administration Gabapentin 300 mg 05/14/17 14:00 05/27/17 06:43 Neurontin - PO 300 mg TID [facility] Administration Insulin Aspart 1 vial 05/13/17 07:00 05/27/17 11:37 Novolog Vial Sliding Scale - SQ Not Given ACH[facility] Protocol Levothyroxine Sodium 50 mcg 05/14/17 07:00 05/27/17 06:44 Synthroid - PO 50 mcg DAILY@0700 [facility] Administration Meclizine HCl 12.5 mg 05/13/17 02:46 05/24/17 12:24 Antivert - PO 12.5 mg Q6H PRN Administration VERTIGO Metoprolol Succinate 12.5 mg 05/13/17 22:00 05/27/17 10:18 Toprol Xl - PO 12.5 mg BID [facility] Administration Morphine Sulfate 15 mg 05/25/17 14:00 05/27/17 06:43 Ms Contin - PO 15 mg Q6HPO [facility] Administration Pantoprazole Sodium 40 mg 05/13/17 10:00 05/27/17 10:19 Protonix - PO 40 mg DAILY [facility] Administration Polyethylene Glycol 17 gm 05/14/17 10:00 05/27/17 10:20 Miralax (For Daily Use) - PO Not Given DAILY [facility] Quetiapine Fumarate 300 mg 05/15/17 22:00 05/26/17 21:35 Seroquel - PO 300 mg HS [facility] Administration Senna 2 tab 05/13/17 22:00 05/26/17 21:33 Senna - PO 2 tab HS [facility] Administration ASSESSMENT/PLAN: 51F w/ hx of CAD s/p OK, CVA/TIA, asthma, DVT, schizophrenia, and HTN who presented after a mechanical fall and was found to have R acetabular and right inferior pubic ramus fracture. Treated with physical therapy and pain control. Pt was supppsed to be D/C'd on 05/24, but accepting SNF said that they no longer have the staffing to accept pt until 05/28. In addition, pt developed SI again on 05/24 requiring 1:1. #R acetabular Fx and R inferior pubic Ramus Fx - no surgical intervention - continue pain control with MS contin - PT #suicidality- started again on 05/24 - 1:1 observation restarted - continue bupropion, seroquel, prozac, Klonopin, depakote - have psych re-evaluate pt again #DM -continue ISS, gabapentin #UTI -resolved, finished course of abx #asthma -continue symbicort and ventolin #hypothyroidism -continue synthroid #anemia -continue ferrous sulfate #HLD -continue lipitor #constipation -continue colace, miralax, senna #h/o CAD and OK - cont toprol - not on ASA #H/o CVA: no h/o of Afib #DVT - occurred as outpt 2 months ago - cont eliquis 5 BID #FEN/ppx -not on fluids -electrolytes wnl -diabetic diet -protonix 40 -eliquis 5 BID #Dispo -medically stable for discharge. Pt developed suicidal ideation again on . Will have psych re-evaluate pt again marissa. -Deondre Moya MD PGY1 Visit type - Emergency Visit Emergency Visit: Yes ED Registration Date: 05/12/17 Care time: The patient presented to the Emergency Department on the above date and was hospitalized for further evaluation of their emergent condition. - New Patient This patient is new to me today: No - Critical Care Critical Care patient: No
--- NOTE | 2017-05-27 14:32 | PN ---
Progress Note, Physician History of Present Illness: Eating lunch, no complaints. - Current Medication List Current Medications: Active Medications Albuterol Sulfate (Ventolin Hfa Inhaler -) 2 puff IH Q4H [facility] Last Admin: 05/27/17 12:08 Dose: 2 puff Apixaban (Eliquis -) 5 mg PO BID [facility] Last Admin: 05/27/17 10:19 Dose: 5 mg Atorvastatin Calcium (Lipitor -) 20 mg PO HS [facility] Last Admin: 05/26/17 21:36 Dose: 20 mg Baclofen (Lioresal -) 10 mg PO TID [facility] Last Admin: 05/27/17 06:43 Dose: 10 mg Benztropine Mesylate (Cogentin -) 1 mg PO DAILY [facility] Last Admin: 05/27/17 10:19 Dose: 1 mg Budesonide/Formoterol Fumarate (Symbicort 80/4.5mcg -) 1 puff IH DAILY [facility] Last Admin: 05/27/17 10:21 Dose: Not Given Bupropion HCl (Wellbutrin Xl -) 300 mg PO DAILY [facility] Last Admin: 05/27/17 10:21 Dose: 300 mg Clonazepam (Klonopin -) 1 mg PO BID [facility] Last Admin: 05/27/17 10:19 Dose: 1 mg Divalproex Sodium (Depakote -) 750 mg PO HS [facility] Last Admin: 05/26/17 21:33 Dose: 750 mg Docusate Sodium (Colace -) 300 mg PO HS [facility] Last Admin: 05/26/17 21:34 Dose: 300 mg Ferrous Sulfate (Feosol -) 325 mg PO DAILY [facility] Last Admin: 05/27/17 10:19 Dose: 325 mg Fluoxetine HCl (Prozac -) 40 mg PO DAILY [facility] Last Admin: 05/27/17 10:18 Dose: 40 mg Gabapentin (Neurontin -) 300 mg PO TID [facility] Last Admin: 05/27/17 06:43 Dose: 300 mg Insulin Aspart (Novolog Vial Sliding Scale -) 1 vial SQ ACHS [facility] PRN Reason: Protocol Last Admin: 05/27/17 11:37 Dose: Not Given Levothyroxine Sodium (Synthroid -) 50 mcg PO DAILY@0700 [facility] Last Admin: 05/27/17 06:44 Dose: 50 mcg Meclizine HCl (Antivert -) 12.5 mg PO Q6H PRN PRN Reason: VERTIGO Last Admin: 05/24/17 12:24 Dose: 12.5 mg Metoprolol Succinate (Toprol Xl -) 12.5 mg PO BID [facility] Last Admin: 05/27/17 10:18 Dose: 12.5 mg Morphine Sulfate (Ms Contin -) 15 mg PO Q6HPO [facility] Last Admin: 05/27/17 12:00 Dose: 15 mg Pantoprazole Sodium (Protonix -) 40 mg PO DAILY [facility] Last Admin: 05/27/17 10:19 Dose: 40 mg Polyethylene Glycol (Miralax (For Daily Use) -) 17 gm PO DAILY [facility] Last Admin: 05/27/17 10:20 Dose: Not Given Quetiapine Fumarate (Seroquel -) 300 mg PO [facility] Last Admin: 05/26/17 21:35 Dose: 300 mg Senna (Senna -) 2 tab PO [facility] Last Admin: 05/26/17 21:33 Dose: 2 tab - Objective Vital Signs: Vital Signs Temperature 98.2 F 05/27/17 09:28 Pulse Rate 80 05/27/17 09:28 Respiratory Rate 16 05/27/17 09:28 Blood Pressure 104/60 05/27/17 09:28 O2 Sat by Pulse Oximetry (%) 98 05/26/17 21:00 Constitutional: Yes: No Distress, Calm Neck: Yes: Supple Cardiovascular: Yes: Regular Rate and Rhythm Respiratory: Yes: Regular, Diminished Gastrointestinal: Yes: Normal Bowel Sounds, Soft, Abdomen, Obese Edema: No Labs: CBC, BMP 05/24/17 08:20 05/27/17 08:00 INR, PTT INR 1.10 (0.82-1.09) 05/13/17 06:00 Problem List - Problems (1) Pelvic fracture Code(s): S32.9XXA - FRACTURE OF UNSP PARTS OF LUMBOSACRAL SPINE AND PELVIS, INIT Qualifiers: Encounter type: subsequent encounter Pelvic bone location: acetabulum Sublocation of acetabulum: posterior wall Fracture type: closed Fracture alignment: nondisplaced Laterality: right (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 Code(s): Z79.01 - CORRECTION (CURRENT) USE OF ANTICOAGULANTS (3) Bipolar disorder Code(s): F31.9 - BIPOLAR DISORDER, UNSPECIFIED Qualifiers: Active/Remission status: in full remission Most recent bipolar episode type : most recent episode depressed (4) HTN (hypertension) Code(s): I10 - ESSENTIAL (PRIMARY) HYPERTENSION Qualifiers: Hypertension type: essential hypertension Qualified Code(s): I10 - Essential (primary) hypertension (5) Hyperlipidemia Code(s): E78.5 - HYPERLIPIDEMIA, UNSPECIFIED Qualifiers: Hyperlipidemia type: pure hypercholesterolemia Qualified Code(s): E78.00 - Pure hypercholesterolemia, unspecified; E78.0 - Pure hypercholesterolemia (6) ARVIND treated with BiPAP Code(s): G47.33 - OBSTRUCTIVE SLEEP APNEA (ADULT) (PEDIATRIC) (7) Auditory hallucinations Code(s): R44.0 - AUDITORY HALLUCINATIONS (8) Suicidal ideations Code(s): R45.851 - SUICIDAL IDEATIONS (9) DVT (deep venous thrombosis) Code(s): I82.409 - ACUTE EMBOLISM AND THOMBOS UNSP DEEP VN UNSP LOWER EXTREMITY (10) Enterococcus UTI Code(s): N39.0 - URINARY TRACT INFECTION, SITE NOT SPECIFIED; B95.2 - ENTEROCOCCUS THE CAUSE OF DISEASES CLASSIFIED ELSEWHERE Assessment/Plan 1. Non-displaced Fracture of right acetabulum 2. CAD h/o SC 3. Hypothyroidism 4. Polysubstance abuse, Bipolar disorder and schizophrenia with auditory hallucinations 5. COPD 6. CVA/TIA 7. Migraine headache 8. Enterococcal UTI PLAN: 1. Non-surgical management as per Orthopedics 2. Continue Metoprolol ER 12.5 bid and Atorvastatin 20 qhs 3. Maintain on Eliquis 5 bid for DVT treatment 4. Continue analgesics, psychotropes per psych and eventual psych inpatient care 5. Abx course per ID
[2017-05-27] MEDS ORDERED: INSULIN DETEMIR 100 UNITS/ML MDV SQ ONE (17:30)
[2017-05-27] MEDS ORDERED: INSULIN (NOVOLOG) ASPART 100 UNITS/ML 10ML VIAL ONE (17:30)
--- NOTE | 2017-05-27 19:07 | PN ---
Teaching Attending Note Name of Resident: Deondre Moya ATTENDING PHYSICIAN STATEMENT I saw and evaluated the patient. I reviewed the resident's note and discussed the case with the resident. I agree with the resident's findings and plan as documented. SUBJECTIVE: Continues to have suicidal thoughts, one to one continues. OBJECTIVE: Vital Signs Temperature 98.2 F 05/27/17 14:37 Pulse Rate 86 05/27/17 14:37 Respiratory Rate 20 05/27/17 14:37 Blood Pressure 124/93 05/27/17 14:37 O2 Sat by Pulse Oximetry (%) 95 05/27/17 09:00 CBCD WBC 7.8 K/mm3 (4.0-10.0) 05/24/17 08:20 RBC 4.15 M/mm3 (3.60-5.2) 05/24/17 08:20 Hgb 11.9 GM/dL (10.7-15.3) 05/24/17 08:20 Hct 35.0 % (32.4-45.2) 05/24/17 08:20 MCV 84.2 fl (80-96) 05/24/17 08:20 MCHC 34.0 g/dl (32.0-36.0) 05/24/17 08:20 RDW 16.0 % (11.6-15.6) H 05/24/17 08:20 Plt Count 207 K/MM3 (134-434) D 05/24/17 08:20 MPV 10.3 fl (7.5-11.1) 05/24/17 08:20 CMP Sodium 143 mmol/L (136-145) 05/27/17 08:00 Potassium 4.1 mmol/L (3.5-5.1) 05/27/17 08:00 Chloride 106 mmol/L (98-107) 05/27/17 08:00 Carbon Dioxide 31 mmol/L (21-32) 05/27/17 08:00 Anion Gap 6 (8-16) L 05/27/17 08:00 BUN 28 mg/dL (7-18) H 05/27/17 08:00 Creatinine 1.1 mg/dL (0.55-1.02) H 05/27/17 08:00 Creat Clearance w eGFR 52.58 (>60) 05/27/17 08:00 Random Glucose 81 mg/dL (74-106) 05/27/17 08:00 Calcium 8.4 mg/dL (8.5-10.1) L 05/27/17 08:00 Total Bilirubin 0.3 mg/dL (0.2-1.0) D 05/27/17 08:00 AST 13 U/L (15-37) L D 05/27/17 08:00 ALT 25 U/L (12-78) D 05/27/17 08:00 Alkaline Phosphatase 115 U/L (45-117) 05/27/17 08:00 Total Protein 6.6 g/dl (6.4-8.2) 05/27/17 08:00 Albumin 2.8 g/dl (3.4-5.0) L 05/27/17 08:00 Current Medications Generic Name Dose Route Start Last Admin Trade Name Freq PRN Reason Stop Dose Admin Albuterol Sulfate 2 puff 05/13/17 07:15 05/27/17 18:52 Ventolin Hfa Inhaler - IH Not Given Q4H [facility] Apixaban 5 mg 05/18/17 10:00 05/27/17 10:19 Eliquis - PO 5 mg BID [facility] Administration Atorvastatin Calcium 20 mg 05/13/17 22:00 05/26/17 21:36 Lipitor - PO 20 mg HS [facility] Administration Baclofen 10 mg 05/17/17 22:00 05/27/17 14:00 Lioresal - PO 10 mg TID [facility] Administration Benztropine Mesylate 1 mg 05/20/17 10:00 05/27/17 10:19 Cogentin - PO 1 mg DAILY [facility] Administration Budesonide/Formoterol Fumarate 1 puff 05/13/17 10:00 05/27/17 10:21 Symbicort 80/4.5mcg - IH Not Given DAILY [facility] Bupropion HCl 300 mg 05/17/17 10:00 05/27/17 10:21 Wellbutrin Xl - PO 300 mg DAILY [facility] Administration Divalproex Sodium 750 mg 05/14/17 22:00 05/26/17 21:33 Depakote - PO 750 mg HS [facility] Administration Docusate Sodium 300 mg 05/13/17 22:00 05/26/17 21:34 Colace - PO 300 mg HS [facility] Administration Ferrous Sulfate 325 mg 05/13/17 10:00 05/27/17 10:19 Feosol - PO 325 mg DAILY [facility] Administration Fluoxetine HCl 40 mg 05/14/17 10:00 05/27/17 10:18 Prozac - PO 40 mg DAILY [facility] Administration Gabapentin 300 mg 05/14/17 14:00 05/27/17 14:00 Neurontin - PO 300 mg TID [facility] Administration Insulin Aspart 1 vial 05/13/17 07:00 05/27/17 17:24 Novolog Vial Sliding Scale - SQ Not Given ACHS [facility] Protocol Levothyroxine Sodium 50 mcg 05/14/17 07:00 05/27/17 06:44 Synthroid - PO 50 mcg DAILY@0700 [facility] Administration Meclizine HCl 12.5 mg 05/13/17 02:46 05/24/17 12:24 Antivert - PO 12.5 mg Q6H PRN Administration VERTIGO Metoprolol Succinate 12.5 mg 05/13/17 22:00 05/27/17 10:18 Toprol Xl - PO 12.5 mg BID [facility] Administration Morphine Sulfate 15 mg 05/25/17 14:00 05/27/17 18:51 Ms Contin - PO 15 mg Q6HPO [facility] Administration Pantoprazole Sodium 40 mg 05/13/17 10:00 05/27/17 10:19 Protonix - PO 40 mg DAILY [facility] Administration Polyethylene Glycol 17 gm 05/14/17 10:00 05/27/17 10:20 Miralax (For Daily Use) - PO Not Given DAILY [facility] Quetiapine Fumarate 300 mg 05/15/17 22:00 05/26/17 21:35 Seroquel - PO 300 mg HS [facility] Administration Senna 2 tab 05/13/17 22:00 05/26/17 21:33 Senna - PO 2 tab HS [facility] Administration Home Medications Medication Instructions Recorded Albuterol Sulfate Inhaler - 1 puff IH Q4H 03/15/17 [Ventolin HFA Inhaler -] Benztropine Mesylate [Cogentin -] 1 mg PO DAILY 03/15/17 Budesonide/Formeterol Fumarate 1 inh PO DAILY 03/15/17 [SYMBICORT 80/4.5mcg -] Bupropion HCl [Bupropion HCl Sr] 400 mg PO DAILY 03/15/17 Clonazepam [Klonopin] 1 mg PO BID 03/15/17 Docusate Sodium [Colace -] 300 mg PO HS 03/15/17 Ferrous Sulfate 325 mg PO DAILY 03/15/17 Furosemide [Lasix] 40 mg PO DAILY 03/15/17 Gabapentin [Neurontin] 300 mg PO TID 03/15/17 Metoprolol Succinate [Toprol XL -] 12.5 mg PO BID 03/15/17 Morphine *Sr* [MS Contin -] 15 mg PO Q6H 03/15/17 Nitroglycerin [Nitrostat] 0.6 mg SL PRN PRN 03/15/17 Polyethylene Glycol 3350 [Miralax 17 gm PO DAILY 03/15/17 119 gm Btl -] Quetiapine Fumarate [Seroquel] 300 tab PO HS 03/15/17 Sennosides [Senna -] 2 tab PO HS 03/15/17 Simvastatin [Zocor -] 40 mg PO HS 03/15/17 Apixaban [Eliquis] 5 mg PO BID 03/16/17 Divalproex [Depakote -] 750 mg PO HS 03/16/17 Levothyroxine [Synthroid -] 50 mcg PO DAILY 03/16/17 Pantoprazole Sodium [Protonix] 40 mg PO DAILY 03/16/17 Fluoxetine HCl [Prozac -] 40 mg PO DAILY 04/24/17 Metformin HCl [Glucophage -] 500 mg PO BID 04/24/17 Tizanidine HCl [Zanaflex] 2 mg PO TID PRN 05/13/17 Vancomycin 1,250 mg IVPB DAILY@1300 3 Days 05/24/17 vial PEL per resident's note ASSESSMENT AND PLAN: Patient is a 51 y/o lady with h/o CAD, s/p MA, CVA/TIA, asthma, schizophrenia, HTN, who presented after a mechanical fall and was found to have R pelvic Fx # Right Acetabular nondisplaced Fracture , Right inferior pubic Ramus Fx :as per ortho; no surgery at this time and partial WB RLE . Ortho appreciated. # Suicidal ideation will continue Observation 1:1, cont. her home meds bupropion , seroquel, prozac and Klonopin , pschy.consult requested again to clear the patient again. # Enteroccal UTI without dysuria : s/p Vancomycin completed IV Abx, Azactam completed since is allergic to PCN #h/o CAD and MA : cont BB , not on ASA # H/o CVA: no h/o of Afib # Recent DVT 2 months ago, cont eliquis 5mg BID waiting for rehab.
[2017-05-27] MEDS: ATORVASTATIN CA 20 MG TABLET (FP) PO SCH (22:00)
[2017-05-27] MEDS: QUEtiapine FUMARATE 100 MG TABLET (FP) PO SCH (22:01)
[2017-05-27] MEDS: SENNOSIDES 8.6MG TABLET (FP) PO SCH (22:03)
[2017-05-27] MEDS: DOCUSATE SODIUM 100 MG CAPSULE (FP) PO SCH (22:03)
[2017-05-27] MEDS: DIVALPROEX SODIUM 250 MG TABLET E.C. (FP) PO SCH (22:03)
[2017-05-28] MEDS: morphine SO4 SUSTAINED ACTING 15 MG TABLET.SA PO SCH ×5 (00:41→23:33)
[2017-05-28] MEDS: GABAPENTIN 300 MG CAPSULE (FP) PO SCH ×3 (06:40→22:42)
[2017-05-28] MEDS: BACLOFEN 10 MG TABLET (FP) PO SCH ×3 (06:40→22:42)
[2017-05-28] MEDS: INSULIN SLIDING SCALE (NOVOLOG) 1 VIAL SQ SCH ×4 (06:40→22:43)
[2017-05-28] MEDS: LEVOTHYROXINE NA 100 MCG TABLET (FP) PO SCH (06:42)
[2017-05-28] MEDS: ALBUTEROL SO4 18 GM HFA INHALER IH SCH ×6 (08:14→22:51)
[2017-05-28] MEDS ORDERED: PT OWN MED DRAWER 7, Y5N ONE ×2 (10:02→21:52)
[2017-05-28] MEDS: FLUoxetine HCL 20 MG CAPSULE (FP) PO SCH (10:04)
[2017-05-28] MEDS: FERROUS SO4 325 MG TABLET (FP) PO SCH (10:05)
[2017-05-28] MEDS: POLYETHYLENE GLYCOL 3350 119 GM BTL PO SCH (10:05)
[2017-05-28] MEDS: METOPROLOL SUCCINATE 25 MG TAB.SR.24H (FP) PO SCH ×2 (10:05→22:45)
[2017-05-28] MEDS: BUDESONIDE/FORMETEROL FUMARATE 80/4.5 mcg INHALER IH SCH (10:05)
[2017-05-28] MEDS: BENZTROPINE MESYLATE 1 MG TABLET (FP) PO SCH (10:05)
[2017-05-28] MEDS: PANTOPRAZOLE 40 MG TABLET (FP) PO SCH (10:05)
[2017-05-28] MEDS: APIXABAN 5 MG TABLET PO SCH ×2 (10:05→22:42)
--- NOTE | 2017-05-28 12:11 | PN ---
Progress Note (short form) - Note Progress Note: Patient seen for psych follow up. Reviewed all previous consultys and follow ups. Spoke to Patiernts medical attending> Patient known to me from previous admissions. History of chronic mental illness. Daja lives at [facility]. patient has been voicing that she had been hearing voices on and off and thretening suicidal behaviour. Tim on 1:1. MS: alert, oriented, able to engage in conversation. Doers not appear to be hallucinating, not displaying any self damaging behaviour. Making herself cofee. nO evidence of any seizure activity at this time. she denies any suicidal ideas or plans at this time. Cognition INtact. PLAN : d/c 1:1 2) Discharge back to senior living.
--- NOTE | 2017-05-28 14:00 | PN ---
Progress Note, Physician History of Present Illness: stable says she has no complaints still on 1 to 1 - Current Medication List Current Medications: Active Medications Albuterol Sulfate (Ventolin Hfa Inhaler -) 2 puff IH Q4H [facility] Last Admin: 05/28/17 11:15 Dose: Not Given Apixaban (Eliquis -) 5 mg PO BID [facility] Last Admin: 05/28/17 10:05 Dose: 5 mg Atorvastatin Calcium (Lipitor -) 20 mg PO HS [facility] Last Admin: 05/27/17 22:00 Dose: 20 mg Baclofen (Lioresal -) 10 mg PO TID [facility] Last Admin: 05/28/17 13:26 Dose: 10 mg Benztropine Mesylate (Cogentin -) 1 mg PO DAILY [facility] Last Admin: 05/28/17 10:05 Dose: 1 mg Budesonide/Formoterol Fumarate (Symbicort 80/4.5mcg -) 1 puff IH DAILY [facility] Last Admin: 05/28/17 10:05 Dose: Not Given Bupropion HCl (Wellbutrin Xl -) 300 mg PO DAILY [facility] Last Admin: 05/28/17 10:05 Dose: 300 mg Divalproex Sodium (Depakote -) 750 mg PO HS [facility] Last Admin: 05/27/17 22:03 Dose: 750 mg Docusate Sodium (Colace -) 300 mg PO HS [facility] Last Admin: 05/27/17 22:03 Dose: 300 mg Ferrous Sulfate (Feosol -) 325 mg PO DAILY [facility] Last Admin: 05/28/17 10:05 Dose: 325 mg Fluoxetine HCl (Prozac -) 40 mg PO DAILY [facility] Last Admin: 05/28/17 10:04 Dose: 40 mg Gabapentin (Neurontin -) 300 mg PO TID [facility] Last Admin: 05/28/17 13:26 Dose: 300 mg Insulin Aspart (Novolog Vial Sliding Scale -) 1 vial SQ ACHS [facility] PRN Reason: Protocol Last Admin: 05/28/17 11:15 Dose: Not Given Levothyroxine Sodium (Synthroid -) 50 mcg PO DAILY@0700 [facility] Last Admin: 05/28/17 06:42 Dose: 50 mcg Meclizine HCl (Antivert -) 12.5 mg PO Q6H PRN PRN Reason: [facility] Last Admin: 12/22/17 12:24 Dose: 12.5 mg Metoprolol Succinate (Toprol Xl -) 12.5 mg PO BID [facility] Last Admin: 05/28/17 10:05 Dose: Not Given Morphine Sulfate (Ms Contin -) 15 mg PO Q6HPO [facility] Last Admin: 05/28/17 12:11 Dose: 15 mg Pantoprazole Sodium (Protonix -) 40 mg PO DAILY [facility] Last Admin: 05/28/17 10:05 Dose: 40 mg Polyethylene Glycol (Miralax (For Daily Use) -) 17 gm PO DAILY [facility] Last Admin: 05/28/17 10:05 Dose: Not Given Quetiapine Fumarate (Seroquel -) 300 mg PO HS [facility] Last Admin: 05/27/17 22:01 Dose: 300 mg Senna (Senna -) [address] [facility] Last Admin: 05/27/17 22:03 Dose: 2 tab - Objective Vital Signs: Vital Signs Temperature 98.5 F 05/28/17 09:00 Pulse Rate 86 05/28/17 09:00 Respiratory Rate 20 05/28/17 09:00 Blood Pressure 99/58 05/28/17 09:00 O2 Sat by Pulse Oximetry (%) 96 05/28/17 09:00 Constitutional: Yes: No Distress, Calm Cardiovascular: Yes: Regular Rate and Rhythm Respiratory: Yes: Regular, CTA Bilaterally Gastrointestinal: Yes: Normal Bowel Sounds, Soft Musculoskeletal: Yes: WNL Extremities: Yes: WNL Neurological: Yes: Alert, Oriented Psychiatric: Yes: Alert, Oriented Labs: CBC, BMP 05/24/17 08:20 05/27/17 08:00 INR, PTT INR 1.10 (0.82-1.09) 05/13/17 06:00 Assessment/Plan patient with rt sided fracture now with uti and suicidal ideation and one to one patient still with symptoms cx have been send patient allergic to multiple medications allergies asked and noted what patient gets Problem List - Problems (1) Pelvic fracture Code(s): S32.9XXA - FRACTURE OF UNSP PARTS OF LUMBOSACRAL SPINE AND PELVIS, INIT Qualifiers: Encounter type: subsequent encounter Pelvic bone location: acetabulum Sublocation of acetabulum: posterior wall Fracture type: closed Fracture alignment: nondisplaced Laterality: right (2) Hx of fdc use of 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 Code(s): Z79.01 - NOUGAT CUTTER MACHINE (CURRENT) USE OF ANTICOAGULANTS (3) Bipolar disorder Code(s): F31.9 - BIPOLAR DISORDER, UNSPECIFIED Qualifiers: Active/Remission status: in full remission Most recent bipolar episode type : most recent episode depressed (4) 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 Code(s): E11.9 - TYPE 2 DIABETES MELLITUS WITHOUT COMPLICATIONS Qualifiers: 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 type: type 2 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 complication status: without complication (5) HTN (hypertension) Code(s): I10 - ESSENTIAL (PRIMARY) HYPERTENSION Qualifiers: Hypertension type: essential hypertension Qualified Code(s): I10 - Essential (primary) hypertension (6) Hyperlipidemia Code(s): E78.5 - HYPERLIPIDEMIA, UNSPECIFIED Qualifiers: Hyperlipidemia type: pure hypercholesterolemia Qualified Code(s): E78.00 - Pure hypercholesterolemia, unspecified; E78.0 - Pure hypercholesterolemia (7) ARVIND treated with BiPAP Code(s): G47.33 - OBSTRUCTIVE SLEEP APNEA (ADULT) (PEDIATRIC) (8) Auditory hallucinations Code(s): R44.0 - AUDITORY HALLUCINATIONS 9 UTI plan stable off of abx psych note noted rest as per primary
--- NOTE | 2017-05-28 17:02 | PN ---
Teaching Attending Note Name of Resident: Denodre Moya ATTENDING PHYSICIAN STATEMENT I saw and evaluated the patient. I reviewed the resident's note and discussed the case with the resident. I agree with the resident's findings and plan as documented. SUBJECTIVE: Patient is not suicidal at this time, was cleared by pschy. again. OBJECTIVE: Vital Signs Temperature 98.5 F 05/28/17 09:00 Pulse Rate 86 05/28/17 09:00 Respiratory Rate 20 05/28/17 09:00 Blood Pressure 99/58 05/28/17 09:00 O2 Sat by Pulse Oximetry (%) 96 05/28/17 09:00 CBCD WBC 7.8 K/mm3 (4.0-10.0) 05/24/17 08:20 RBC 4.15 M/mm3 (3.60-5.2) 05/24/17 08:20 Hgb 11.9 GM/dL (10.7-15.3) 05/24/17 08:20 Hct 35.0 % (32.4-45.2) 05/24/17 08:20 MCV 84.2 fl (80-96) 05/24/17 08:20 MCHC 34.0 g/dl (32.0-36.0) 05/24/17 08:20 RDW 16.0 % (11.6-15.6) H 05/24/17 08:20 Plt Count 207 K/MM3 (134-434) D 05/24/17 08:20 MPV 10.3 fl (7.5-11.1) 05/24/17 08:20 CMP Sodium 143 mmol/L (136-145) 05/27/17 08:00 Potassium 4.1 mmol/L (3.5-5.1) 05/27/17 08:00 Chloride 106 mmol/L (98-107) 05/27/17 08:00 Carbon Dioxide 31 mmol/L (21-32) 05/27/17 08:00 Anion Gap 6 (8-16) L 05/27/17 08:00 BUN 28 mg/dL (7-18) H 05/27/17 08:00 Creatinine 1.1 mg/dL (0.55-1.02) H 05/27/17 08:00 Creat Clearance w eGFR 52.58 (>60) 05/27/17 08:00 Random Glucose 81 mg/dL (74-106) 05/27/17 08:00 Calcium 8.4 mg/dL (8.5-10.1) L 05/27/17 08:00 Total Bilirubin 0.3 mg/dL (0.2-1.0) D 05/27/17 08:00 AST 13 U/L (15-37) L D 05/27/17 08:00 ALT 25 U/L (12-78) D 05/27/17 08:00 Alkaline Phosphatase 115 U/L (45-117) 05/27/17 08:00 Total Protein 6.6 g/dl (6.4-8.2) 05/27/17 08:00 Albumin 2.8 g/dl (3.4-5.0) L 05/27/17 08:00 Current Medications Generic Name Dose Route Start Last Admin Trade Name Freq PRN Reason Stop Dose Admin Albuterol Sulfate 2 puff 05/13/17 07:15 05/28/17 16:37 Ventolin Hfa Inhaler - IH Not Given Q4H [facility] Apixaban 5 mg 05/18/17 10:00 05/28/17 10:05 Eliquis - PO 5 mg BID [facility] Administration Atorvastatin Calcium 20 mg 05/13/17 22:00 05/27/17 22:00 Lipitor - PO 20 mg HS [facility] Administration Baclofen 10 mg 05/17/17 22:00 05/28/17 13:26 Lioresal - PO 10 mg TID [facility] Administration Benztropine Mesylate 1 mg 05/20/17 10:00 05/28/17 10:05 Cogentin - PO 1 mg DAILY [facility] Administration Budesonide/Formoterol Fumarate 1 puff 05/13/17 10:00 05/28/17 10:05 Symbicort 80/4.5mcg - IH Not Given DAILY [facility] Bupropion HCl 300 mg 05/17/17 10:00 05/28/17 10:05 Wellbutrin Xl - PO 300 mg DAILY [facility] Administration Divalproex Sodium 750 mg 05/14/17 22:00 05/27/17 22:03 Depakote - PO 750 mg HS [facility] Administration Docusate Sodium 300 mg 05/13/17 22:00 05/27/17 22:03 Colace - PO 300 mg HS [facility] Administration Ferrous Sulfate 325 mg 05/13/17 10:00 05/28/17 10:05 Feosol - PO 325 mg DAILY [facility] Administration Fluoxetine HCl 40 mg 05/14/17 10:00 05/28/17 10:04 Prozac - PO 40 mg DAILY [facility] Administration Gabapentin 300 mg 05/14/17 14:00 05/28/17 13:26 Neurontin - PO 300 mg TID [facility] Administration Insulin Aspart 1 vial 05/13/17 07:00 05/28/17 16:37 Novolog Vial Sliding Scale - SQ Not Given ACHS [facility] Protocol Levothyroxine Sodium 50 mcg 05/14/17 07:00 05/28/17 06:42 Synthroid - PO 50 mcg DAILY@0700 [facility] Administration Meclizine HCl 12.5 mg 05/13/17 02:46 05/24/17 12:24 Antivert - PO 12.5 mg Q6H PRN Administration VERTIGO Metoprolol Succinate 12.5 mg 05/13/17 22:00 05/28/17 10:05 Toprol Xl - PO Not Given BID [facility] Morphine Sulfate 15 mg 05/25/17 14:00 05/28/17 12:11 Ms Contin - PO 15 mg Q6HPO [facility] Administration Pantoprazole Sodium 40 mg 05/13/17 10:00 05/28/17 10:05 Protonix - PO 40 mg DAILY [facility] Administration Polyethylene Glycol 17 gm 05/14/17 10:00 05/28/17 10:05 Miralax (For Daily Use) - PO Not Given DAILY [facility] Quetiapine Fumarate 300 mg 05/15/17 22:00 05/27/17 22:01 Seroquel - PO 300 mg HS [facility] Administration Senna 2 tab 05/13/17 22:00 05/27/17 22:03 Senna - PO 2 tab HS [facility] Administration Home Medications Medication Instructions Recorded Albuterol Sulfate Inhaler - 1 puff IH Q4H 03/15/17 [Ventolin HFA Inhaler -] Benztropine Mesylate [Cogentin -] 1 mg PO DAILY 03/15/17 Budesonide/Formeterol Fumarate 1 inh PO DAILY 03/15/17 [SYMBICORT 80/4.5mcg -] Bupropion HCl [Bupropion HCl Sr] 400 mg PO DAILY 03/15/17 Clonazepam [Klonopin] 1 mg PO BID 03/15/17 Docusate Sodium [Colace -] 300 mg PO HS 03/15/17 Ferrous Sulfate 325 mg PO DAILY 03/15/17 Furosemide [Lasix] 40 mg PO DAILY 03/15/17 Gabapentin [Neurontin] 300 mg PO TID 03/15/17 Metoprolol Succinate [Toprol XL -] 12.5 mg PO BID 03/15/17 Morphine *Sr* [MS Contin -] 15 mg PO Q6H 03/15/17 Nitroglycerin [Nitrostat] 0.6 mg SL PRN PRN 03/15/17 Polyethylene Glycol 3350 [Miralax 17 gm PO DAILY 03/15/17 119 gm Btl -] Quetiapine Fumarate [Seroquel] 300 tab PO HS 03/15/17 Sennosides [Senna -] 2 tab PO HS 03/15/17 Simvastatin [Zocor -] 40 mg PO HS 03/15/17 Apixaban [Eliquis] 5 mg PO BID 03/16/17 Divalproex [Depakote -] 750 mg PO HS 03/16/17 Levothyroxine [Synthroid -] 50 mcg PO DAILY 03/16/17 Pantoprazole Sodium [Protonix] 40 mg PO DAILY 03/16/17 Fluoxetine HCl [Prozac -] 40 mg PO DAILY 04/24/17 Metformin HCl [Glucophage -] 500 mg PO BID 04/24/17 Tizanidine HCl [Zanaflex] 2 mg PO TID PRN 05/13/17 PE: per resident's note ASSESSMENT AND PLAN: Patient is a 51 y/o lady with h/o CAD, s/p AR, CVA/TIA, asthma, schizophrenia, HTN, who presented after a mechanical fall and was found to have R pelvic Fx # Right Acetabular nondisplaced Fracture , Right inferior pubic Ramus Fx :as per ortho; no surgery at this time and partial WB RLE . Ortho appreciated. # Suicidal ideation : patient denies at this time, off Observation 1:1, Psyc cleared the patient, patient has to be 24 hr off observation , prior to discharge to rehab. or her snf if patient gets accepted back . Cont. her home meds bupropion , seroquel, prozac and Klonopin , pschy.cleared the patient again. As per pschy , she can go back to her instituition if ambulating or to a rehab. if is not ambulating. # Enteroccal UTI without dysuria : s/p Vancomycin completed IV Abx, Azactam completed since is allergic to PCN #h/o CAD and AR : cont BB , not on ASA # H/o CVA: no h/o of Afib # Recent DVT 2 months ago, cont eliquis 5mg BID waiting for rehab.or back to her instituition if they take her back.
--- NOTE | 2017-05-28 17:17 | PN ---
Physical Exam: SUBJECTIVE: Patient seen and examined. No acute events overnight. Pt only complaining of usual pains. OBJECTIVE: Vital Signs Period Temp Pulse Resp BP Sys/Schultz Pulse Ox Last 24 Hr 98.1 F-98.9 F 84-97 20-20 99-115/50-85 96-97 GENERAL: obese, middle aged female, alert, in no acute distress, eating breakfast HEENT: NC, AT LUNGS: Breath sounds equal, clear to auscultation bilaterally, no wheezes, no crackles, no accessory muscle use. HEART: Regular rate and rhythm, S1, S2 without murmur, rub or gallop. ABDOMEN: obese abdomen, soft, nontender, nondistended, normoactive bowel sounds , no guarding EXTREMITIES: no edema. R leg is externally rotated slightly. NEUROLOGICAL: Normal speech, gait not observed. Laboratory Results - last 24 hr 05/27/17 05/27/17 05/28/17 17:23 22:00 06:39 POC Glucometer 134 157 98 05/28/17 05/28/17 10:55 16:32 POC Glucometer 93 131 Active Medications Generic Name Dose Route Start Last Admin Trade Name Freq PRN Reason Stop Dose Admin Albuterol Sulfate 2 puff 05/13/17 07:15 05/28/17 16:37 Ventolin Hfa Inhaler - IH Not Given Q4H [facility] Apixaban 5 mg 05/18/17 10:00 05/28/17 10:05 Eliquis - PO 5 mg BID [facility] Administration Atorvastatin Calcium 20 mg 05/13/17 22:00 05/27/17 22:00 Lipitor - PO 20 mg HS [facility] Administration Baclofen 10 mg 05/17/17 22:00 05/28/17 13:26 Lioresal - PO 10 mg TID [facility] Administration Benztropine Mesylate 1 mg 05/20/17 10:00 05/28/17 10:05 Cogentin - PO 1 mg DAILY [facility] Administration Budesonide/Formoterol Fumarate 1 puff 05/13/17 10:00 05/28/17 10:05 Symbicort 80/4.5mcg - IH Not Given DAILY [facility] Bupropion HCl 300 mg 05/17/17 10:00 05/28/17 10:05 Wellbutrin Xl - PO 300 mg DAILY [facility] Administration Divalproex Sodium 750 mg 05/14/17 22:00 05/27/17 22:03 Depakote - PO 750 mg HS [facility] Administration Docusate Sodium 300 mg 05/13/17 22:00 05/27/17 22:03 Colace - PO 300 mg HS [facility] Administration Ferrous Sulfate 325 mg 05/13/17 10:00 05/28/17 10:05 Feosol - PO 325 mg DAILY [facility] Administration Fluoxetine HCl 40 mg 05/14/17 10:00 05/28/17 10:04 Prozac - PO 40 mg DAILY [facility] Administration Gabapentin 300 mg 05/14/17 14:00 05/28/17 13:26 Neurontin - PO 300 mg TID [facility] Administration Insulin Aspart 1 vial 05/13/17 07:00 05/28/17 16:37 Novolog Vial Sliding Scale - SQ Not Given ACHS [facility] Protocol Levothyroxine Sodium 50 mcg 05/14/17 07:00 05/28/17 06:42 Synthroid - PO 50 mcg DAILY@0700 [facility] Administration Meclizine HCl 12.5 mg 05/13/17 02:46 05/24/17 12:24 Antivert - PO 12.5 mg Q6H PRN Administration VERTIGO Metoprolol Succinate 12.5 mg 05/13/17 22:00 05/28/17 10:05 Toprol Xl - PO Not Given BID [facility] Morphine Sulfate 15 mg 05/25/17 14:00 05/28/17 12:11 Ms Contin - PO 15 mg Q6HPO [facility] Administration Pantoprazole Sodium 40 mg 05/13/17 10:00 05/28/17 10:05 Protonix - PO 40 mg DAILY [facility] Administration Polyethylene Glycol 17 gm 05/14/17 10:00 05/28/17 10:05 Miralax (For Daily Use) - PO Not Given DAILY [facility] Quetiapine Fumarate 300 mg 05/15/17 22:00 05/27/17 22:01 Seroquel - PO 300 mg HS [facility] Administration Senna 2 tab 05/13/17 22:00 05/27/17 22:03 Senna - PO 2 tab HS [facility] Administration ASSESSMENT/PLAN: 51F w/ hx of CAD s/p GA, CVA/TIA, asthma, DVT, schizophrenia, and HTN who presented after a mechanical fall and was found to have R acetabular and right inferior pubic ramus fracture. Treated with physical therapy and pain control. Pt was supppsed to be D/C'd on 05/24, but accepting SNF said that they no longer have the staffing to accept pt until 05/28. However, pt developed SI again requiring 1:1 observation, now off of it. #R acetabular Fx and R inferior pubic Ramus Fx - no surgical intervention - continue pain control with MS contin - PT #suicidality- started again on 05/24 - re-evaluate by antonio- pt no longer suicidal, can be d/c'd home - 1:1 observation discontinued - continue bupropion, seroquel, prozac, Klonopin, depakote #DM -continue ISS, gabapentin #UTI -resolved, finished course of abx #asthma -continue symbicort and ventolin #hypothyroidism -continue synthroid #anemia -continue ferrous sulfate #HLD -continue lipitor #constipation -continue colace, miralax, senna #h/o CAD and GA - cont toprol - not on ASA #H/o CVA: no h/o of Afib #DVT - occurred as outpt 2 months ago - cont eliquis 5 BID #FEN/ppx -not on fluids -electrolytes wnl -diabetic diet -protonix 40 -eliquis 5 BID #Dispo -medically stable for discharge to custodial. Pt can be discharged marissa after noon bc must be off of 1:1 for 24 hours for facility to accept. -Deondre Moya MD PGY1 Visit type - Emergency Visit Emergency Visit: Yes ED Registration Date: 05/12/17 Care time: The patient presented to the Emergency Department on the above date and was hospitalized for further evaluation of their emergent condition. - New Patient This patient is new to me today: No - Critical Care Critical Care patient: No
[2017-05-28] MEDS: QUEtiapine FUMARATE 100 MG TABLET (FP) PO SCH (22:41)
[2017-05-28] MEDS: DIVALPROEX SODIUM 250 MG TABLET E.C. (FP) PO SCH (22:41)
[2017-05-28] MEDS: SENNOSIDES 8.6MG TABLET (FP) PO SCH (22:41)
[2017-05-28] MEDS: DOCUSATE SODIUM 100 MG CAPSULE (FP) PO SCH (22:42)
[2017-05-28] MEDS: ATORVASTATIN CA 20 MG TABLET (FP) PO SCH (22:50)
[2017-05-29] MEDS: ALBUTEROL SO4 18 GM HFA INHALER IH SCH ×6 (03:17→22:18)
[2017-05-29] MEDS: GABAPENTIN 300 MG CAPSULE (FP) PO SCH ×3 (06:10→22:07)
[2017-05-29] MEDS: LEVOTHYROXINE NA 100 MCG TABLET (FP) PO SCH (06:10)
[2017-05-29] MEDS: BACLOFEN 10 MG TABLET (FP) PO SCH ×3 (06:10→22:06)
[2017-05-29] MEDS: morphine SO4 SUSTAINED ACTING 15 MG TABLET.SA PO SCH ×4 (06:11→23:36)
[2017-05-29] MEDS: INSULIN SLIDING SCALE (NOVOLOG) 1 VIAL SQ SCH ×4 (06:12→22:09)
[2017-05-29] MEDS: POLYETHYLENE GLYCOL 3350 119 GM BTL PO SCH (10:38)
[2017-05-29] MEDS: FERROUS SO4 325 MG TABLET (FP) PO SCH (10:38)
[2017-05-29] MEDS: PANTOPRAZOLE 40 MG TABLET (FP) PO SCH (10:38)
[2017-05-29] MEDS: FLUoxetine HCL 20 MG CAPSULE (FP) PO SCH (10:38)
[2017-05-29] MEDS: APIXABAN 5 MG TABLET PO SCH ×2 (10:40→22:08)
[2017-05-29] MEDS: BENZTROPINE MESYLATE 1 MG TABLET (FP) PO SCH (10:40)
[2017-05-29] MEDS: METOPROLOL SUCCINATE 25 MG TAB.SR.24H (FP) PO SCH ×2 (10:40→22:09)
[2017-05-29] MEDS: BUDESONIDE/FORMETEROL FUMARATE 80/4.5 mcg INHALER IH SCH (10:40)
--- NOTE | 2017-05-29 11:14 | PN ---
Progress Note, Physician History of Present Illness: No complaints. - Current Medication List Current Medications: Active Medications Albuterol Sulfate (Ventolin Hfa Inhaler -) 2 puff IH Q4H [facility] Last Admin: 05/29/17 10:38 Dose: Not Given Apixaban (Eliquis -) 5 mg PO BID [facility] Last Admin: 05/29/17 10:40 Dose: 5 mg Atorvastatin Calcium (Lipitor -) 20 mg PO HS [facility] Last Admin: 05/28/17 22:50 Dose: 20 mg Baclofen (Lioresal -) 10 mg PO TID [facility] Last Admin: 05/29/17 06:10 Dose: 10 mg Benztropine Mesylate (Cogentin -) 1 mg PO DAILY [facility] Last Admin: 05/29/17 10:40 Dose: 1 mg Budesonide/Formoterol Fumarate (Symbicort 80/4.5mcg -) 1 puff IH DAILY [facility] Last Admin: 05/29/17 10:40 Dose: Not Given Bupropion HCl (Wellbutrin Xl -) 300 mg PO DAILY [facility] Last Admin: 05/29/17 10:40 Dose: 300 mg Divalproex Sodium (Depakote -) 750 mg PO HS [facility] Last Admin: 05/28/17 22:41 Dose: 750 mg Docusate Sodium (Colace -) 300 mg PO HS [facility] Last Admin: 05/28/17 22:42 Dose: 300 mg Ferrous Sulfate (Feosol -) 325 mg PO DAILY [facility] Last Admin: 05/29/17 10:38 Dose: 325 mg Fluoxetine HCl (Prozac -) 40 mg PO DAILY [facility] Last Admin: 05/29/17 10:38 Dose: 40 mg Gabapentin (Neurontin -) 300 mg PO TID [facility] Last Admin: 05/29/17 06:10 Dose: 300 mg Insulin Aspart (Novolog Vial Sliding Scale -) 1 vial SQ ACHS [facility] PRN Reason: Protocol Last Admin: 05/29/17 10:55 Dose: Not Given Levothyroxine Sodium (Synthroid -) 50 mcg PO DAILY@0700 [facility] Last Admin: 05/29/17 06:10 Dose: 50 mcg Meclizine HCl (Antivert -) 12.5 mg PO Q6H PRN PRN Reason: [facility] Last Admin: 05/24/17 12:24 Dose: 12.5 mg Metoprolol Succinate (Toprol Xl -) 12.5 mg PO BID [facility] Last Admin: 05/29/17 10:40 Dose: Not Given Morphine Sulfate (Ms Contin -) 15 mg PO Q6HPO [facility] Last Admin: 05/29/17 06:11 Dose: 15 mg Pantoprazole Sodium (Protonix -) 40 mg PO DAILY [facility] Last Admin: 05/29/17 10:38 Dose: 40 mg Polyethylene Glycol (Miralax (For Daily Use) -) 17 gm PO DAILY [facility] Last Admin: 05/29/17 10:38 Dose: Not Given Quetiapine Fumarate (Seroquel -) 300 mg PO HS [facility] Last Admin: 05/28/17 22:41 Dose: 300 mg Senna (Senna -) 2 tab PO [facility] Last Admin: 05/28/17 22:41 Dose: 2 tab - Objective Vital Signs: Vital Signs Temperature 98.3 F 05/29/17 05:49 Pulse Rate 78 05/29/17 05:49 Respiratory Rate 20 05/29/17 05:49 Blood Pressure 121/72 05/29/17 05:49 O2 Sat by Pulse Oximetry (%) 97 05/28/17 21:00 Constitutional: Yes: No Distress, Calm Neck: Yes: Supple Cardiovascular: Yes: Regular Rate and Rhythm Respiratory: Yes: Regular, Diminished Gastrointestinal: Yes: Normal Bowel Sounds, Soft Edema: No Labs: CBC, BMP 05/24/17 08:20 05/27/17 08:00 INR, PTT INR 1.10 (0.82-1.09) 05/13/17 06:00 Problem List - Problems (1) Pelvic fracture Code(s): S32.9XXA - FRACTURE OF UNSP PARTS OF LUMBOSACRAL SPINE AND PELVIS, INIT Qualifiers: Encounter type: subsequent encounter Pelvic bone location: acetabulum Sublocation of acetabulum: posterior wall Fracture type: closed Fracture alignment: nondisplaced Laterality: right (2) Hx of manager intermediate use of 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 Code(s): Z79.01 - MEDICAL CLERICAL ASSISTANT (CURRENT) USE OF ANTICOAGULANTS (3) Bipolar disorder Code(s): F31.9 - BIPOLAR DISORDER, UNSPECIFIED Qualifiers: Active/Remission status: in full remission Most recent bipolar episode type : most recent episode depressed (4) HTN (hypertension) Code(s): I10 - ESSENTIAL (PRIMARY) HYPERTENSION Qualifiers: Hypertension type: essential hypertension Qualified Code(s): I10 - Essential (primary) hypertension (5) Hyperlipidemia Code(s): E78.5 - HYPERLIPIDEMIA, UNSPECIFIED Qualifiers: Hyperlipidemia type: pure hypercholesterolemia Qualified Code(s): E78.00 - Pure hypercholesterolemia, unspecified; E78.0 - Pure hypercholesterolemia (6) ARVIND treated with BiPAP Code(s): G47.33 - OBSTRUCTIVE SLEEP APNEA (ADULT) (PEDIATRIC) (7) Auditory hallucinations Code(s): R44.0 - AUDITORY HALLUCINATIONS (8) Suicidal ideations Code(s): R45.851 - SUICIDAL IDEATIONS (9) DVT (deep venous thrombosis) Code(s): I82.409 - ACUTE EMBOLISM AND THOMBOS UNSP DEEP VN UNSP LOWER EXTREMITY (10) Enterococcus UTI Code(s): N39.0 - URINARY TRACT INFECTION, SITE NOT SPECIFIED; B95.2 - ENTEROCOCCUS THE CAUSE OF DISEASES CLASSIFIED ELSEWHERE Assessment/Plan 1. Non-displaced Fracture of right acetabulum 2. CAD h/o NH 3. Hypothyroidism 4. Polysubstance abuse, Bipolar disorder and schizophrenia with auditory hallucinations 5. COPD 6. CVA/TIA 7. Migraine headache 8. Enterococcal UTI PLAN: 1. Non-surgical management as per Orthopedics 2. Continue Metoprolol ER 12.5 bid and Atorvastatin 20 qhs 3. Maintain on Eliquis 5 bid for DVT treatment 4. Continue analgesics, psychotropes per psych and eventual psych inpatient care 5. Completed Abx course per ID
[2017-05-29] MEDS ORDERED: PT OWN MED DRAWER 7, Y5N ONE ×2 (11:24→20:56)
--- NOTE | 2017-05-29 15:58 | PN ---
Progress Note, Physician History of Present Illness: patient stable no new issues - Current Medication List Current Medications: Active Medications Albuterol Sulfate (Ventolin Hfa Inhaler -) 2 puff IH Q4H [facility] Last Admin: 05/29/17 14:50 Dose: Not Given Apixaban (Eliquis -) 5 mg PO BID [facility] Last Admin: 05/29/17 10:40 Dose: 5 mg Atorvastatin Calcium (Lipitor -) 20 mg PO HS [facility] Last Admin: 05/28/17 22:50 Dose: 20 mg Baclofen (Lioresal -) 10 mg PO TID [facility] Last Admin: 05/29/17 13:17 Dose: Not Given Benztropine Mesylate (Cogentin -) 1 mg PO DAILY [facility] Last Admin: 05/29/17 10:40 Dose: 1 mg Budesonide/Formoterol Fumarate (Symbicort 80/4.5mcg -) 1 puff IH DAILY [facility] Last Admin: 05/29/17 10:40 Dose: Not Given Bupropion HCl (Wellbutrin Xl -) 300 mg PO DAILY [facility] Last Admin: 05/29/17 10:40 Dose: 300 mg Divalproex Sodium (Depakote -) 750 mg PO HS [facility] Last Admin: 05/28/17 22:41 Dose: 750 mg Docusate Sodium (Colace -) 300 mg PO HS [facility] Last Admin: 05/28/17 22:42 Dose: 300 mg Ferrous Sulfate (Feosol -) 325 mg PO DAILY [facility] Last Admin: 05/29/17 10:38 Dose: 325 mg Fluoxetine HCl (Prozac -) 40 mg PO DAILY [facility] Last Admin: 05/29/17 10:38 Dose: 40 mg Gabapentin (Neurontin -) 300 mg PO TID [facility] Last Admin: 05/29/17 13:18 Dose: Not Given Insulin Aspart (Novolog Vial Sliding Scale -) 1 vial SQ ACHS [facility] PRN Reason: Protocol Last Admin: 05/29/17 10:55 Dose: Not Given Levothyroxine Sodium (Synthroid -) 50 mcg PO DAILY@0700 [facility] Last Admin: 05/29/17 06:10 Dose: 50 mcg Meclizine HCl (Antivert -) 12.5 mg PO Q6H PRN PRN Reason: [facility]IGO Last Admin: 05/24/17 12:24 Dose: 12.5 mg Metoprolol Succinate (Toprol Xl -) 12.5 mg PO BID [facility] Last Admin: 05/29/17 10:40 Dose: Not Given Morphine Sulfate (Ms Contin -) 15 mg PO Q6HPO [facility] Last Admin: 05/29/17 12:16 Dose: 15 mg Pantoprazole Sodium (Protonix -) 40 mg PO DAILY [facility] Last Admin: 05/29/17 10:38 Dose: 40 mg Polyethylene Glycol (Miralax (For Daily Use) -) 17 gm PO DAILY [facility] Last Admin: 05/29/17 10:38 Dose: Not Given Quetiapine Fumarate (Seroquel -) 300 mg PO HS [facility] Last Admin: 05/28/17 22:41 Dose: 300 mg Senna (Senna -) 2 tab PO [facility] Last Admin: 05/28/17 22:41 Dose: 2 tab - Objective Vital Signs: Vital Signs Temperature 98.5 F 05/29/17 09:00 Pulse Rate 86 05/29/17 09:00 Respiratory Rate 20 05/29/17 09:00 Blood Pressure 108/68 05/29/17 09:00 O2 Sat by Pulse Oximetry (%) 98 05/29/17 09:00 Constitutional: Yes: No Distress, Calm Cardiovascular: Yes: Regular Rate and Rhythm Respiratory: Yes: Regular, CTA Bilaterally Gastrointestinal: Yes: Normal Bowel Sounds, Soft Musculoskeletal: Yes: WNL Extremities: Yes: WNL Neurological: Yes: Alert, Oriented Psychiatric: Yes: Alert, Oriented Labs: CBC, BMP 05/24/17 08:20 05/27/17 08:00 INR, PTT INR 1.10 (0.82-1.09) 05/13/17 06:00 Assessment/Plan patient with rt sided fracture now with uti and suicidal ideation and one to one patient still with symptoms cx have been send patient allergic to multiple medications allergies asked and noted what patient gets Problem List - Problems (1) Pelvic fracture Code(s): S32.9XXA - FRACTURE OF UNSP PARTS OF LUMBOSACRAL SPINE AND PELVIS, INIT Qualifiers: Encounter type: subsequent encounter Pelvic bone location: acetabulum Sublocation of acetabulum: posterior wall Fracture type: closed Fracture alignment: nondisplaced Laterality: right (2) Hx of correction use of 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 Code(s): Z79.01 - [facility] (CURRENT) USE OF ANTICOAGULANTS (3) Bipolar disorder Code(s): F31.9 - BIPOLAR DISORDER, UNSPECIFIED Qualifiers: Active/Remission status: in full remission Most recent bipolar episode type : most recent episode depressed (4) 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 Code(s): E11.9 - TYPE 2 DIABETES MELLITUS WITHOUT COMPLICATIONS Qualifiers: 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 type: type 2 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 complication status: without complication (5) HTN (hypertension) Code(s): I10 - ESSENTIAL (PRIMARY) HYPERTENSION Qualifiers: Hypertension type: essential hypertension Qualified Code(s): I10 - Essential (primary) hypertension (6) Hyperlipidemia Code(s): E78.5 - HYPERLIPIDEMIA, UNSPECIFIED Qualifiers: Hyperlipidemia type: pure hypercholesterolemia Qualified Code(s): E78.00 - Pure hypercholesterolemia, unspecified; E78.0 - Pure hypercholesterolemia (7) ARVIND treated with BiPAP Code(s): G47.33 - OBSTRUCTIVE SLEEP APNEA (ADULT) (PEDIATRIC) (8) Auditory hallucinations Code(s): R44.0 - AUDITORY HALLUCINATIONS 9 UTI plan finished abx course continue current mgmt rest as per primary team
--- NOTE | 2017-05-29 17:50 | PN ---
Physical Exam: SUBJECTIVE: Patient seen and examined. No acute events overnight. Pt states that LE pain is still present. OBJECTIVE: Vital Signs Period Temp Pulse Resp BP Sys/Schultz Pulse Ox Last 24 Hr 98.3 F-98.8 F 78-88 20-20 100-121/62-73 97-98 GENERAL: obese, middle aged female, alert, in no acute distress, eating breakfast HEENT: NC, AT LUNGS: Breath sounds equal, clear to auscultation bilaterally, no wheezes, no crackles, no accessory muscle use. HEART: Regular rate and rhythm, S1, S2 without murmur, rub or gallop. ABDOMEN: obese abdomen, soft, nontender, nondistended, normoactive bowel sounds , no guarding EXTREMITIES: no edema NEUROLOGICAL: Normal speech, gait not observed. Laboratory Results - last 24 hr 05/28/17 05/29/17 05/29/17 22:39 06:08 10:54 POC Glucometer 118 79 99 05/29/17 16:24 POC Glucometer 112 Active Medications Generic Name Dose Route Start Last Admin Trade Name Freq PRN Reason Stop Dose Admin Albuterol Sulfate 2 puff 05/13/17 07:15 05/29/17 14:50 Ventolin Hfa Inhaler - IH Not Given Q4H BHARAT Apixaban 5 mg 05/18/17 10:00 05/29/17 10:40 Eliquis - PO 5 mg BID BHARAT Administration Atorvastatin Calcium 20 mg 05/13/17 22:00 05/28/17 22:50 Lipitor - PO 20 mg HS [facility]ARAT Administration Baclofen 10 mg 05/17/17 22:00 05/29/17 13:17 Lioresal - PO Not Given TID BHARAT Benztropine Mesylate 1 mg 05/20/17 10:00 05/29/17 10:40 Cogentin - PO 1 mg DAILY [facility]AT Administration Budesonide/Formoterol Fumarate 1 puff 05/13/17 10:00 05/29/17 10:40 Symbicort 80/4.5mcg - IH Not Given DAILY BHARAT Bupropion HCl 300 mg 05/17/17 10:00 05/29/17 10:40 Wellbutrin Xl - PO 300 mg DAILY [facility] Administration Divalproex Sodium 750 mg 05/14/17 22:00 05/28/17 22:41 Depakote - PO 750 mg HS [facility]AT Administration Docusate Sodium 300 mg 05/13/17 22:00 05/28/17 22:42 Colace - PO 300 mg HS [facility]AT Administration Ferrous Sulfate 325 mg 05/13/17 10:00 05/29/17 10:38 Feosol - PO 325 mg DAILY [facility] Administration Fluoxetine HCl 40 mg 05/14/17 10:00 05/29/17 10:38 Prozac - PO 40 mg DAILY [facility] Administration Gabapentin 300 mg 05/14/17 14:00 05/29/17 13:18 Neurontin - PO Not Given TID [facility] Insulin Aspart 1 vial 05/13/17 07:00 05/29/17 16:29 Novolog Vial Sliding Scale - SQ Not Given ACHS [facility] Protocol Levothyroxine Sodium 50 mcg 05/14/17 07:00 05/29/17 06:10 Synthroid - PO 50 mcg DAILY@0700 [facility] Administration Meclizine HCl 12.5 mg 05/13/17 02:46 05/24/17 12:24 Antivert - PO 12.5 mg Q6H PRN Administration VERTIGO Metoprolol Succinate 12.5 mg 05/13/17 22:00 05/29/17 10:40 Toprol Xl - PO Not Given BID [facility] Morphine Sulfate 15 mg 05/25/17 14:00 05/29/17 17:26 Ms Contin - PO 15 mg Q6HPO [facility] Administration Pantoprazole Sodium 40 mg 05/13/17 10:00 05/29/17 10:38 Protonix - PO 40 mg DAILY [facility] Administration Polyethylene Glycol 17 gm 05/14/17 10:00 05/29/17 10:38 Miralax (For Daily Use) - PO Not Given DAILY [facility] Quetiapine Fumarate 300 mg 05/15/17 22:00 05/28/17 22:41 Seroquel - PO 300 mg HS [facility] Administration Senna 2 tab 05/13/17 22:00 05/28/17 22:41 Senna - PO 2 tab HS [facility] Administration ASSESSMENT/PLAN: 51F w/ hx of CAD s/p CA, CVA/TIA, asthma, DVT, schizophrenia, and HTN who presented after a mechanical fall and was found to have R acetabular and right inferior pubic ramus fracture. Treated with physical therapy and pain control. Pt was supppsed to be D/C'd on 05/24, but accepting SNF said that they no longer have the staffing to accept pt until 05/28. However, pt developed SI again requiring 1:1 observation, now off of it. #R acetabular Fx and R inferior pubic Ramus Fx - no surgical intervention - continue pain control with MS contin - PT refused by patient. per PT, pt should be D/C'd to SNF because they can' t be sure that pt is fully rehabilitated due to lack of cooperation #suicidality- started again on 05/24 - re-evaluate by antonio- pt no longer suicidal, can be d/c'd - 1:1 observation discontinued - continue bupropion, seroquel, prozac, Klonopin, depakote #DM -continue ISS, gabapentin #UTI -resolved, finished course of abx #asthma -continue symbicort and ventolin #hypothyroidism -continue synthroid #anemia -continue ferrous sulfate #HLD -continue lipitor #constipation -continue colace, miralax, senna #h/o CAD and CA - cont toprol - not on ASA #H/o CVA: no h/o of Afib #DVT - occurred as outpt 2 months ago - cont eliquis 5 BID #FEN/ppx -not on fluids -no electrolyte labs today -diabetic diet -protonix 40 -eliquis 5 BID #Dispo -medically stable for discharge to SNF. -Deondre Moya MD PGY1 Visit type - Emergency Visit Emergency Visit: Yes ED Registration Date: 05/12/17 Care time: The patient presented to the Emergency Department on the above date and was hospitalized for further evaluation of their emergent condition. - New Patient This patient is new to me today: No - Critical Care Critical Care patient: No
--- NOTE | 2017-05-29 19:17 | PN ---
Teaching Attending Note Name of Resident: Deondre Moya ATTENDING PHYSICIAN STATEMENT I saw and evaluated the patient. I reviewed the resident's note and discussed the case with the resident. I agree with the resident's findings and plan as documented. SUBJECTIVE: No fever or chills . pain in R groin , denies SI , still hears voices but they just scream , and no commands to kill her self OBJECTIVE: NAD, awake , alert , and cooperative CV: RRR Lungs: CTAB Abd: soft, minimal TTP in suprapubic area , ND, NL BS. Ext: no edema , TTP over R groin . NL sensation in LE b/l ASSESSMENT AND PLAN: 51 y/o lady with h/o CAD, s/p [place], CVA/TIA, asthma, schizophrenia, HTN, and other medical problems who presented after a mechanical fall and was found to have R pelvic Fx 1- R acetabular Fx and R inferior pubic Ramus Fx. - No surgical intervention - cont pain control - refused PT 2- Auditory hallucinations : no SI - off 1:1 observation - cont bupropion - cont seroquel - cont prozac and Klonopin - No need for inpt psych 3- UTI: finished a course of Abx 4-h/o CAD and DE : - cont BB - not on ASA 5- H/o CVA: no h/o of Afib 6- Recent DVT as outpt 2 months ago, cont eliquis 5 BID Cont PT
[2017-05-29] MEDS: DOCUSATE SODIUM 100 MG CAPSULE (FP) PO SCH (22:06)
[2017-05-29] MEDS: ATORVASTATIN CA 20 MG TABLET (FP) PO SCH (22:06)
[2017-05-29] MEDS: SENNOSIDES 8.6MG TABLET (FP) PO SCH (22:07)
[2017-05-29] MEDS: QUEtiapine FUMARATE 100 MG TABLET (FP) PO SCH (22:07)
[2017-05-29] MEDS: DIVALPROEX SODIUM 250 MG TABLET E.C. (FP) PO SCH (22:08)
[2017-05-30] MEDS: ALBUTEROL SO4 18 GM HFA INHALER IH SCH (04:40)
[2017-05-30] MEDS: morphine SO4 SUSTAINED ACTING 15 MG TABLET.SA PO SCH ×2 (06:24→11:10)
[2017-05-30] MEDS: BACLOFEN 10 MG TABLET (FP) PO SCH (06:25)
[2017-05-30] MEDS: GABAPENTIN 300 MG CAPSULE (FP) PO SCH (06:25)
[2017-05-30] MEDS: LEVOTHYROXINE NA 100 MCG TABLET (FP) PO SCH (06:26)
[2017-05-30] MEDS: INSULIN SLIDING SCALE (NOVOLOG) 1 VIAL SQ SCH (06:27)
[2017-05-30] MEDS ORDERED: PT OWN MED DRAWER 7, Y5N ONE (10:39)
[2017-05-30 10:40] VITALS: BP 111/78; PULSE 90; TEMP 97.2
--- NOTE | 2017-05-30 11:14 | PN ---
Progress Note, Physician History of Present Illness: No complaints. - Current Medication List Current Medications: Active Medications Albuterol Sulfate (Ventolin Hfa Inhaler -) 2 puff IH Q4H [facility] Last Admin: 05/30/17 04:40 Dose: Not Given Apixaban (Eliquis -) 5 mg PO BID [facility] Last Admin: 05/29/17 22:08 Dose: 5 mg Atorvastatin Calcium (Lipitor -) 20 mg PO HS [facility] Last Admin: 05/29/17 22:06 Dose: 20 mg Baclofen (Lioresal -) 10 mg PO TID [facility] Last Admin: 05/30/17 06:25 Dose: 10 mg Benztropine Mesylate (Cogentin -) 1 mg PO DAILY [facility] Last Admin: 05/29/17 10:40 Dose: 1 mg Budesonide/Formoterol Fumarate (Symbicort 80/4.5mcg -) 1 puff IH DAILY [facility] Last Admin: 05/29/17 10:40 Dose: Not Given Bupropion HCl (Wellbutrin Xl -) 300 mg PO DAILY [facility] Last Admin: 05/29/17 10:40 Dose: 300 mg Divalproex Sodium (Depakote -) 750 mg PO HS [facility] Last Admin: 05/29/17 22:08 Dose: 750 mg Docusate Sodium (Colace -) 300 mg PO HS [facility] Last Admin: 05/29/17 22:06 Dose: 300 mg Ferrous Sulfate (Feosol -) 325 mg PO DAILY [facility] Last Admin: 05/29/17 10:38 Dose: 325 mg Fluoxetine HCl (Prozac -) 40 mg PO DAILY [facility] Last Admin: 05/29/17 10:38 Dose: 40 mg Gabapentin (Neurontin -) 300 mg PO TID [facility] Last Admin: 05/30/17 06:25 Dose: 300 mg Insulin Aspart (Novolog Vial Sliding Scale -) 1 vial SQ ACHS [facility] PRN Reason: Protocol Last Admin: 05/30/17 06:27 Dose: Not Given Levothyroxine Sodium (Synthroid -) 50 mcg PO DAILY@0700 [facility] Last Admin: 05/30/17 06:26 Dose: 50 mcg Meclizine HCl (Antivert -) 12.5 mg PO Q6H PRN PRN Reason: VERTIGO Last Admin: 05/24/17 12:24 Dose: 12.5 mg Metoprolol Succinate (Toprol Xl -) 12.5 mg PO BID [facility] Last Admin: 05/29/17 22:09 Dose: Not Given Morphine Sulfate (Ms Contin -) 15 mg PO Q6HPO [facility] Last Admin: 05/30/17 06:24 Dose: 15 mg Pantoprazole Sodium (Protonix -) 40 mg PO DAILY [facility] Last Admin: 05/29/17 10:38 Dose: 40 mg Polyethylene Glycol (Miralax (For Daily Use) -) 17 gm PO DAILY [facility] Last Admin: 05/29/17 10:38 Dose: Not Given Quetiapine Fumarate (Seroquel -) 300 mg PO HS [facility] Last Admin: 05/29/17 22:07 Dose: 300 mg Senna (Senna -) 2 tab PO [facility] Last Admin: 05/29/17 22:07 Dose: 2 tab - Objective Vital Signs: Vital Signs Temperature 97.2 F L 05/30/17 10:00 Pulse Rate 90 05/30/17 10:00 Respiratory Rate 18 05/30/17 10:00 Blood Pressure 111/78 05/30/17 10:00 O2 Sat by Pulse Oximetry (%) 100 05/29/17 21:00 Constitutional: Yes: No Distress, Calm Neck: Yes: Supple Cardiovascular: Yes: Regular Rate and Rhythm Respiratory: Yes: Regular, Diminished Gastrointestinal: Yes: Normal Bowel Sounds, Soft, Abdomen, Obese Edema: No Labs: CBC, BMP 05/24/17 08:20 05/27/17 08:00 INR, PTT INR 1.10 (0.82-1.09) 05/13/17 06:00 Problem List - Problems (1) Pelvic fracture Code(s): S32.9XXA - FRACTURE OF UNSP PARTS OF LUMBOSACRAL SPINE AND PELVIS, INIT Qualifiers: Encounter type: subsequent encounter Pelvic bone location: acetabulum Sublocation of acetabulum: posterior wall Fracture type: closed Fracture alignment: nondisplaced Laterality: right (2) 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(s): Z79.01 - NURSING HOME (CURRENT) USE OF ANTICOAGULANTS (3) Bipolar disorder Code(s): F31.9 - BIPOLAR DISORDER, UNSPECIFIED Qualifiers: Active/Remission status: in full remission Most recent bipolar episode type : most recent episode depressed (4) HTN (hypertension) Code(s): I10 - ESSENTIAL (PRIMARY) HYPERTENSION Qualifiers: Hypertension type: essential hypertension Qualified Code(s): I10 - Essential (primary) hypertension (5) Hyperlipidemia Code(s): E78.5 - HYPERLIPIDEMIA, UNSPECIFIED Qualifiers: Hyperlipidemia type: pure hypercholesterolemia Qualified Code(s): E78.00 - Pure hypercholesterolemia, unspecified; E78.0 - Pure hypercholesterolemia (6) ARVIND treated with BiPAP Code(s): G47.33 - OBSTRUCTIVE SLEEP APNEA (ADULT) (PEDIATRIC) (7) Auditory hallucinations Code(s): R44.0 - AUDITORY HALLUCINATIONS (8) Suicidal ideations Code(s): R45.851 - SUICIDAL IDEATIONS (9) DVT (deep venous thrombosis) Code(s): I82.409 - ACUTE EMBOLISM AND THOMBOS UNSP DEEP VN UNSP LOWER EXTREMITY (10) Enterococcus UTI Code(s): N39.0 - URINARY TRACT INFECTION, SITE NOT SPECIFIED; B95.2 - ENTEROCOCCUS THE CAUSE OF DISEASES CLASSIFIED ELSEWHERE Assessment/Plan 1. Non-displaced Fracture of right acetabulum 2. CAD h/o PR 3. Hypothyroidism 4. Polysubstance abuse, Bipolar disorder and schizophrenia with auditory hallucinations 5. COPD 6. CVA/TIA 7. Migraine headache 8. Enterococcal UTI PLAN: 1. Non-surgical management as per Orthopedics 2. Continue Metoprolol ER 12.5 bid and Atorvastatin 20 qhs 3. Maintain on Eliquis 5 bid for DVT treatment 4. Continue analgesics, psychotropes per psych and eventual psych inpatient care 5. Completed Abx course per ID
[2017-05-30] MEDS: BENZTROPINE MESYLATE 1 MG TABLET (FP) PO SCH (11:16)
[2017-05-30] MEDS: APIXABAN 5 MG TABLET PO SCH (11:16)
[2017-05-30] MEDS: FERROUS SO4 325 MG TABLET (FP) PO SCH (11:16)
[2017-05-30] MEDS: POLYETHYLENE GLYCOL 3350 119 GM BTL PO SCH (11:17)
[2017-05-30] MEDS: PANTOPRAZOLE 40 MG TABLET (FP) PO SCH (11:17)
[2017-05-30] MEDS: FLUoxetine HCL 20 MG CAPSULE (FP) PO SCH (11:17)
[2017-05-30] MEDS: METOPROLOL SUCCINATE 25 MG TAB.SR.24H (FP) PO SCH (11:18)
--- NOTE | 2017-05-30 11:55 | PN ---
Teaching Attending Note Name of Resident: Deondre Moya ATTENDING PHYSICIAN STATEMENT I saw and evaluated the patient. I reviewed the resident's note and discussed the case with the resident. I agree with the resident's findings and plan as documented. SUBJECTIVE: no fever or chills, refused to participate in PT. no pain, no SI , voices have stopped ordering her to kill her self OBJECTIVE: NAD, awake, alert , and cooperative CV: RRR Lungs: CTAB Abd: soft, minimal TTP in suprapubic area , ND, NL BS. Ext: no edema , TTP over R groin . NL sensation in LE b/l ASSESSMENT AND PLAN: 51 y/o lady with h/o CAD, s/p [place], CVA/TIA, asthma, schizophrenia, HTN, and other medical problems who presented after a mechanical fall and was found to have R pelvic Fx 1- R acetabular Fx and R inferior pubic Ramus Fx. - partial weight baring, f/u with ortho in 2 weeks . PT . - cont her home dose morphine 2- Auditory hallucinations : no SI - cont bupropion - cont seroquel - cont prozac - No need for inpt psych 3- UTI: finished a course of Abx 4-h/o CAD and IN : - cont BB - not on ASA 5- H/o CVA: no h/o of Afib 6- Recent DVT as outpt 2 months prior to presentation, cont eliquis 5 BID Cont PT as outpt . patient has been refusing to participate in PT, but she was witnessed walking with her walker alone by floor director. dc to assisted living .
--- NOTE | 2017-05-30 15:55 | DS ---
Physical Exam: SUBJECTIVE: Patient seen and examined. No acute events overnight. Pt endorses chronic leg pain that is improved from yesterday. She denies headache, chest pain, shortness of breath, abdominal pain , n/v/d/c, and dysuria. OBJECTIVE: Vital Signs Period Temp Pulse Resp BP Sys/Schultz Pulse Ox Last 24 Hr 97.2 F-98.8 F 86-90 18-20 110-111/52-78 98-100 PHYSICAL EXAM GENERAL: obese, middle aged female, alert, in no acute distress, eating breakfast HEENT: NC, AT LUNGS: Breath sounds equal, clear to auscultation bilaterally, no wheezes, no crackles, no accessory muscle use. HEART: Regular rate and rhythm, S1, S2 without murmur, rub or gallop. ABDOMEN: obese abdomen, soft, nontender, nondistended, normoactive bowel sounds , no guarding EXTREMITIES: no edema, legs mildly tender to palpation NEUROLOGICAL: Normal speech, gait not observed. LABS Laboratory Results - last 24 hr 05/29/17 05/29/17 05/30/17 16:24 22:03 06:22 POC Glucometer 112 97 97 Microbiology 05/21/17 15:15 Urine - Urine Clean Catch Urine Culture - Final Enterococcus Faecalis 05/18/17 20:28 Urine - Urine Clean Catch Urine Culture - Final Contaminated: Please Repeat CT pelvis w/o contrast: IMPRESSION: 1. Essentially nondisplaced, acute posterior wall and transverse fracture of the right acetabulum. Small right hip joint effusion. No femoral head dislocation. 2. Nondisplaced acute fracture through the right inferior pubic ramus. 3. Prominent urinary bladder wall, may be secondary to underdistention. Cystitis is not excluded. Please correlate clinically, with urinalysis. A preliminary report with these findings was provided overnight by imaging record clerk salesperson (Dr. Hickman). HOSPITAL COURSE: Date of Admission:05/12/17 Date of Discharge: 05/30/17 51F w/ hx of CAD s/p [place], CVA/TIA, asthma, DVT, schizophrenia, and HTN who presented after a mechanical fall and was found to have R acetabular and right inferior pubic ramus fracture. Pt was treated with physical therapy and pain control, and no surgery was indicated per the surgery team. She developed a UTI in the hospital, and she completed a course of antibiotics. Pt became acutely suicidal requiring 1:1 observation and was evaluated by psychiatry. Pt was re- evaluated several days later, deemed to no longer be suicidal, and was safe to discharge home. Today, pt has normal vitals, benign physical exam, no subjective complaints other than her chronic leg pain, and is safe for discharge home. Pt informed to f/u with her PCP, orthopedic surgery, and psychiatry. -Deondre Moya MD PGY1 Minutes to complete discharge: 37 Discharge Summary Reason For Visit: FRACTURE OF PELVIS Condition: Stable - Instructions Diet, Activity, Other Instructions: You were admitted to the hospital after a fall and found to have a non- displaced right acetabulum fracture. The surgeon decided that it did not require surgery, and so you were managed with physical therapy and pain control. You were also found to have a UTI, for which you completed a course of antibiotics. Medications: Please continue taking your previous home medications as prescribed. Follow-up: 1. Please follow-up with your primary care provider in one week. If you require a referral for a primary care provider, contact information for Dr. Rees has been provided to you. Please call this number to schedule an appointment in one week. 2. Please follow up with psychiatry within two weeks. If you don't have one, we have referred you to Dr. Chacko. 3. Please follow up with orthopedic surgery within two weeks. We have referred you to [facility]. Diet: Please conform to a low salt, low carbohydrate diet and avoid refined foods with high sugar content. Exercise: You are approved for walking with partial weight-bearing on your right leg. Please return to the hospital if you have any worsening pain, swelling, numbness in your right leg or you feel that your leg is become cold to touch, or if you experience any new symptoms. Referrals: Suleiman Rees MD [Staff Physician] - 1 Week Thien Mei PA [Physician Slip Maker] - 2 Weeks Irene Chacko MD [Staff Physician] - Disposition: HOME - Home Medications Comprehensive Discharge Medication List: Ambulatory Orders Albuterol Sulfate Inhaler - [Ventolin HFA Inhaler -] 1 puff IH Q4H 03/15/17 Budesonide/Formeterol Fumarate [SYMBICORT 80/4.5mcg -] 1 inh PO DAILY 03/15/17 Clonazepam [Klonopin] 1 mg PO BID 03/15/17 Morphine *Sr* [MS Contin -] 15 mg PO Q6H 03/15/17 Nitroglycerin [Nitrostat] 0.6 mg SL PRN PRN 03/15/17 Polyethylene Glycol 3350 [Miralax 119 gm Btl -] 17 gm PO DAILY 03/15/17 Tizanidine HCl [Zanaflex] 2 mg PO TID PRN 05/13/17 Apixaban [Eliquis] 5 mg PO BID #30 tablet 05/30/17 Benztropine Mesylate [Cogentin -] 1 mg PO DAILY #30 tablet 05/30/17 Bupropion HCl [Wellbutrin Xl] 300 mg PO DAILY #30 tab.er.24h 05/30/17 Divalproex [Depakote -] 750 mg PO HS #30 tablet.ec 05/30/17 Docusate Sodium [Colace -] 300 mg PO HS #30 capsule 05/30/17 Ferrous Sulfate 325 mg PO DAILY #30 tablet 05/30/17 Fluoxetine HCl [Prozac -] 40 mg PO DAILY #30 capsule 05/30/17 Furosemide [Lasix] 40 mg PO DAILY #30 tablet 05/30/17 Gabapentin [Neurontin] 300 mg PO TID #90 tablet 05/30/17 Levothyroxine [Synthroid -] 50 mcg PO DAILY #30 tablet 05/30/17 Metformin HCl [Glucophage -] 500 mg PO BID #30 tablet 05/30/17 Metoprolol Succinate [Toprol XL -] 12.5 mg PO BID #30 tab.sr.24h 05/30/17 Pantoprazole Sodium [Protonix] 40 mg PO DAILY #30 tablet. 05/30/17 Quetiapine Fumarate [Seroquel] 300 tab PO HS #30 tablet 05/30/17 Sennosides [Senna -] 2 tab PO HS #30 tablet 05/30/17 Simvastatin [Zocor -] 40 mg PO HS #30 tablet 05/30/17 This patient is new to me today: No Emergency Visit: Yes ED Registration Date: 05/12/17 Care time: The patient presented to the Emergency Department on the above date and was hospitalized for further evaluation of their emergent condition. Critical Care patient: No - Discharge Referral Referred to [facility] No
== END 2017-05-30 15:17 | disposition home or self-care (01) | DRG 341 ==
LOC: JER 19:29 → JERBED 23:59 → J7W 05-13 02:34
PROVIDERS: ADMIT Internal Medicine; ATTEND Internal Medicine
PROC: 3E0F7GC Introduction of Other Therapeutic Substance into Respiratory Tract, Via Natural or Artificial Opening (ICD-10-PCS; principal; 2017-05-15)
DX: S32.491A Other specified fracture of right acetabulum, initial encounter for closed fracture (principal); S32.591A Other specified fracture of right pubis, initial encounter for closed fracture; I25.10 Atherosclerotic heart disease of native coronary artery without angina pectoris; I25.2 Old myocardial infarction; J44.9 Chronic obstructive pulmonary disease, unspecified; F31.89 Other bipolar disorder; F20.89 Other schizophrenia; I10 Essential (primary) hypertension; E78.5 Hyperlipidemia, unspecified; E11.9 Type 2 diabetes mellitus without complications; E66.01 Morbid (severe) obesity due to excess calories; Z68.42 Body mass index [BMI] 45.0-49.9, adult; D64.9 Anemia, unspecified; F43.10 Post-traumatic stress disorder, unspecified; G43.809 Other migraine, not intractable, without status migrainosus; I69.354 Hemiplegia and hemiparesis following cerebral infarction affecting left non-dominant side; R42 Dizziness and giddiness; B95.2 Enterococcus as the cause of diseases classified elsewhere; E03.9 Hypothyroidism, unspecified; F32.9 Major depressive disorder, single episode, unspecified; E11.40 Type 2 diabetes mellitus with diabetic neuropathy, unspecified; N39.0 Urinary tract infection, site not specified; R45.851 Suicidal ideations; F19.10 Other psychoactive substance abuse, uncomplicated; R44.0 Auditory hallucinations; K59.09 Other constipation; R30.0 Dysuria; G47.33 Obstructive sleep apnea (adult) (pediatric); W18.39XA Other fall on same level, initial encounter; Y92.098 Other place in other non-institutional residence as the place of occurrence of the external cause; Y93.89 Activity, other specified; Z87.11 Personal history of peptic ulcer disease; Z86.718 Personal history of other venous thrombosis and embolism
CPT/HCPCS: 36415; 70450-TC; 72192-TC; 73523-TC; 80048; 80053; 81003; 81015; 83735; 84100; 84443; 85025; 85610; 85730; 86850; 86900; 86901; 87086; 87186; 93005; 93010; 93970-TC; 97116-GP; 97161-GP; 99282-25; J0475

== ENCOUNTER 2017-06-01 16:59 | Inpatient (IN) | payer OTHER ==
--- NOTE | 2017-06-01 17:39 | PDOC ---
History of Present Illness - General Chief Complaint: Chest Pain Stated Complaint: CHEST PAIN - History of Present Illness Initial Comments: 06/01/17 17:38 51y F hx of CAD, [place], CVA/TIA with residual L sided weakness,a sthma, copd, bipolar disorder, schizophrenia,htn, hl, hypothyroidism, dm, polysubstance abuse , ptsd, presents with chest pain. Pt states That after she broke her hip she was discharged without knowing how to follow up and that [facility] ([facility] (her adult home) wont let her stay there while she's not mobile/able to ambulate. Also complains of chest pain, left sided non radiating reproducible 06/01/17 18:11 Past History - Past Medical History Allergies/Adverse Reactions: Allergies Allergy/AdvReac Type Severity Reaction Status Date / Time hydromorphone HCl Allergy Intermediate Itching Verified 06/01/17 17:07 [From Dilaudid] amoxicillin [Amoxicillin] Allergy Verified 06/01/17 17:07 ampicillin Allergy Verified 06/01/17 17:07 aspirin Allergy Difficulty Verified 06/01/17 17:07 Breathing cranberry Allergy Rash Verified 06/01/17 17:07 doxycycline Allergy Rash Verified 06/01/17 17:07 Fish Containing Products Allergy Difficulty Verified 06/01/17 17:07 Breathing haloperidol [From Haldol] Allergy Rash Verified 06/01/17 17:07 haloperidol lactate Allergy Rash Verified 06/01/17 17:07 [From Haldol] ibuprofen [From Motrin] Allergy Difficulty Verified 06/01/17 17:07 Breathing ketorolac tromethamine Allergy Rash Verified 06/01/17 17:07 [From Toradol] levofloxacin [From Levaquin] Allergy Rash Verified 06/01/17 17:07 milk Allergy Difficulty Verified 06/01/17 17:07 Breathing oxycodone HCl [From Percocet] Allergy Rash Verified 06/01/17 17:07 Penicillins Allergy Difficulty Verified 06/01/17 17:07 Breathing sulfamethoxazole Allergy Rash Verified 06/01/17 17:07 [From Bactrim] trimethoprim [From Bactrim] Allergy Verified 06/01/17 17:07 warfarin sodium Allergy Verified 06/01/17 17:07 [From Coumadin] Gravy Allergy Unknown Uncoded 06/01/17 17:07 Cranberry/Cranberry juice Allergy Uncoded 06/01/17 17:07 raw tomato Allergy Uncoded 06/01/17 17:07 Home Medications: Ambulatory Orders Albuterol Sulfate Inhaler - [Ventolin HFA Inhaler -] 1 puff IH Q4H 03/15/17 Budesonide/Formeterol Fumarate [SYMBICORT 80/4.5mcg -] 1 inh PO DAILY 03/15/17 Clonazepam [Klonopin] 1 mg PO BID 03/15/17 Morphine *Sr* [MS Contin -] 15 mg PO Q6H 03/15/17 Nitroglycerin [Nitrostat] 0.6 mg SL PRN PRN 03/15/17 Polyethylene Glycol 3350 [Miralax 119 gm Btl -] 17 gm PO DAILY 03/15/17 Tizanidine HCl [Zanaflex] 2 mg PO TID PRN 05/13/17 Apixaban [Eliquis] 5 mg PO BID #30 tablet 05/30/17 Benztropine Mesylate [Cogentin -] 1 mg PO DAILY #30 tablet 05/30/17 Bupropion HCl [Wellbutrin Xl] 300 mg PO DAILY #30 tab.er.24h 05/30/17 Divalproex [Depakote -] 750 mg PO HS #30 tablet.ec 05/30/17 Docusate Sodium [Colace -] 300 mg PO HS #30 capsule 05/30/17 Ferrous Sulfate 325 mg PO DAILY #30 tablet 05/30/17 Fluoxetine HCl [Prozac -] 40 mg PO DAILY #30 capsule 05/30/17 Furosemide [Lasix] 40 mg PO DAILY #30 tablet 05/30/17 Gabapentin [Neurontin] 300 mg PO TID #90 tablet 05/30/17 Levothyroxine [Synthroid -] 50 mcg PO DAILY #30 tablet 05/30/17 Metformin HCl [Glucophage -] 500 mg PO BID #30 tablet 05/30/17 Metoprolol Succinate [Toprol XL -] 12.5 mg PO BID #30 tab.sr.24h 05/30/17 Pantoprazole Sodium [Protonix] 40 mg PO DAILY #30 tablet. 05/30/17 Quetiapine Fumarate [Seroquel] 300 tab PO HS #30 tablet 05/30/17 Sennosides [Senna -] 2 tab PO HS #30 tablet 05/30/17 Simvastatin [Zocor -] 40 mg PO HS #30 tablet 05/30/17 Anemia: Yes Asthma: Yes Cancer: No Cardiac Disorders: Yes (chest pain, CAD, [place] x3) CVA: Yes (CVA x3, TIA, left sided residual) COPD: Yes CHF: No DVT: No Dementia: No Diabetes: Yes GI Disorders: Yes (PEPTIC ULCER) Disorders: No HTN: Yes Hypercholesterolemia: Yes Liver Disease: No Psychiatric Problems: Yes (Schizophrenia) Seizures: No Thyroid Disease: No Other medical history: h/o Fx of Rt acetabulum - Surgical History Abdominal Surgery: Yes Appendectomy: No Cardiac Surgery: No Cholecystectomy: No Lung Surgery: No Neurologic Surgery: No Orthopedic Surgery: Yes - Immunization History Immunization Up to Date: No - Suicide/Smoking/Psychosocial Hx Smoking Status: Yes Smoking History: Former smoker Have you smoked in the past 12 months: No Number of Cigarettes Smoked Daily: 3 If you are a former smoker, when did you quit?: 09/18/2014 Cigars Per Day: 20 Information on smoking cessation initiated: No 'Breaking Loose' booklet given: 10/30/14 Hx Alcohol Use: No (denies) Drug/Substance Use Hx: No (denies) Substance Use Type: Alcohol, Cocaine, Marijuana Hx Substance Use Treatment: Yes Cardiac Specific PMH - Complaint Specific PMHX Pacemaker: No Review of Systems - Review of Systems Able to Perform ROS?: Yes Constitutional: No: Symptoms Reported HEENTM: No: Symptoms Reported Respiratory: Yes: See HPI Cardiac (ROS): Yes: See HPI ABD/GI: No: Symptoms Reported : No: Symptoms Reported Musculoskeletal: Yes: See HPI Integumentary: No: Symptoms Reported Neurological: No: Symptoms reported All Other Systems: Reviewed and Negative *Physical Exam - Vital Signs Last Vital Signs Temp Pulse Resp BP Pulse Ox 98.5 F 71 17 119/63 100 06/01/17 17:13 06/01/17 17:13 06/01/17 17:13 06/01/17 17:13 06/01/17 17:18 - Physical Exam General Appearance: Yes: Obese HEENT: positive: EOMI, LINDA, Normal ENT Inspection Neck: positive: Trachea midline. negative: Tender Respiratory/Chest: positive: Lungs Clear, Normal Breath Sounds. negative: Chest Tender Cardiovascular: positive: Regular Rhythm, Regular Rate, S1, S2 Gastrointestinal/Abdominal: positive: Normal Bowel Sounds, Protuberent Musculoskeletal: positive: Normal Inspection Extremity: positive: Normal Capillary Refill Integumentary: positive: Normal Color, Dry, Warm Neurologic: positive: Fully Oriented, Alert, Depressed Affect ED Treatment Course - LABORATORY CBC & Chemistry Diagram: 06/01/17 18:08 06/01/17 18:08 - ADDITIONAL ORDERS Additional order review: Laboratory Results 06/01/17 06/01/17 18:08 18:08 Sodium 142 Potassium 3.6 Chloride 105 Carbon Dioxide 27 Anion Gap 10 BUN 17 D Creatinine 0.9 Creat Clearance w eGFR > 60 Random Glucose 77 Calcium 9.0 Total Bilirubin 0.4 D AST 18 D ALT 24 Alkaline Phosphatase 129 H Creatine Kinase 214 H Creatine Kinase Index 0.8 CK-MB (CK-2) 1.85 Troponin I < 0.02 Total Protein 7.3 Albumin 3.2 L 06/01/17 18:08 RBC 4.27 MCV 83.0 MCHC 34.2 RDW 16.0 H MPV 10.4 Neutrophils % 77.4 Lymphocytes % 16.5 D Monocytes % 4.7 Eosinophils % 0.3 Basophils % 1.1 - RADIOLOGY Radiology Studies Ordered: Category Date Time Status CXRPORT [CHEST X-RAY PORTABLE*] [RAD] Stat Radiology 06/01/17 18:05 Taken - Medications Given in the ED: ED Medications Discontinued Medications Generic Name Dose Route Start Last Admin Trade Name Freq PRN Reason Stop Dose Admin Morphine Sulfate 2 mg 06/01/17 18:18 06/01/17 18:27 Morphine Injection - IVPUSH 06/01/17 18:19 2 mg ONCE ONE Administration Medical Decision Making - Medical Decision Making 06/01/17 18:22 Jethro Olea contacted and confirmed that patient wouldn't be accepted as a resident if not mobile. Labs, cardiac enzymes, ekg, cxr sent and pending. 06/01/17 18:59 Gave 2mg IV morphine for pain control [facility], spoke to Dr. Purvis who accepted the patient for Dr. Degroot. *DC/Admit/Observation/Transfer Diagnosis at time of Disposition: Pelvic fracture - Discharge Dispostion Condition at time of disposition: Stable Admit: Yes Decision to Admit order Date/Time: Decision to Admit Order Category Date Time Status Decision to Admit to Hospital Routine Admission 06/01/17 18:59 Ordered - Referrals - Patient Instructions - Post Discharge Activity
[2017-06-01 17:41] VITALS: BMI 38.8
--- NOTE | 2017-06-01 18:09 | PDOC ---
Attending Attestation - Resident Resident Name: CeronJesus - ED Attending Attestation I have performed the following: I have examined & evaluated the patient, The case was reviewed & discussed with the resident, I agree w/resident's findings & plan, Exceptions are as noted - HPI HPI: 06/01/17 18:09 51-year-old female with history of coronary disease, [place], stroke, asthma, COPD, bipolar disorder, schizophrenia, hypertension, hyperlipidemia, hypothyroidism, diabetes, obesity, migraines, PTSD sent in from [place] for inability to ambulate. We had spoken to the facility, the facility states that the patient is not allowed to stay at the facility given that she is nonmobile and her right hip fracture. States that the patient must be evaluated in the hospital. They cannot take her back given that she is not infiltrate. The patient reports that she's been having persistent right hip pain since she was discharged on the . During that time, she was admitted for right hip fracture in the setting of a fall and was diagnosed with urinary tract infection evaluated for psychiatric reasons. Patient was initially discharged back to the facility. Here , the patient continues to report right hip pain. Also states that she's been having persistent chest pain since her admission to the hospital. Patient reports that she's been worked up. The patient's chest pain is vague and nondescript. No shortness of breath. - Physicial Exam PE: 06/01/17 18:09 GENERAL: Awake, alert, and fully oriented, in no acute distress. HEAD: No signs of trauma EYES: PERRLA, EOMI, sclera anicteric, conjunctiva clear ENT: Auricles normal inspection, hearing grossly normal, nares patent, NECK: Normal ROM, supple LUNGS: Breath sounds equal, clear to auscultation bilaterally. No wheezes, and no crackles HEART: Regular rate and rhythm, normal S1 and S2, no murmurs, rubs or gallops ABDOMEN: Soft, nontender, normoactive bowel sounds. No guarding, no rebound. No masses EXTREMITIES: Normal range of motion, no edema. No clubbing or cyanosis. No cords, erythema, or tenderness. TTP R hip. NEUROLOGICAL: Cranial nerves II through XII grossly intact. Normal speech. SKIN: Warm, Dry, normal turgor, no rashes or lesions noted. - Medical Decision Making 06/01/17 18:10 Vital Signs Temp Pulse Resp BP Pulse Ox 98.5 F 71 17 119/63 100 06/01/17 17:13 06/01/17 17:13 06/01/17 17:13 06/01/17 17:13 06/01/17 17:18 Patient's chest pain is quite vague but given her history of cardiac disease, we 'll send a troponin. Given that the patient has been having several weeks of this similar chest pain and was worked up, we'll send one troponin. If negative , I feel like it's less likely to be acute coronary syndrome. We have called and contacted the facility would confirm that the patient cannot be sent back given that their policies mandate that she is in laboratory. Given that she has a known diagnosis of right hip fracture, we'll obtain labs and admit the patient back to the hospital. Heart Score/ECG Review - History History: Slightly suspicious - Age Age: 45-65 - Risk Factors Based on the list above the patient has:: >/=3 risk factors or Hx atherosclerotic disease #1 ECG reviewed & interpreted by me at: 17:25 06/01/17 18:38 NSR 81, no std/iadan, TWI V2, QTC 471 msec. normal axis, normal intervals
[2017-06-01 18:15] LABS: BASO % 1.1 % (0-2.0); EOS % 0.3 % (0-4.5); HEMATOCRIT 35.4 % (32.4-45.2); HEMOGLOBIN 12.1 GM/dL (10.7-15.3); LYMPH % 16.5 % (8-40); MCH 28.4 pg (25.7-33.7); MCHC 34.2 g/dl (32.0-36.0); MEAN PLT VOLUME 10.4 fl (7.5-11.1); MONO % 4.7 % (3.8-10.2); NEUT % 77.4 % (42.8-82.8); PLATELET COUNT 284 K/MM3 (134-434); RBC 4.27 M/mm3 (3.60-5.2); WHITE BLOOD COUNT 10.6 K/mm3 (4.0-10.0)
[2017-06-01] MEDS ORDERED: morphine CARPU-JECT 2 MG/1 ML DISP.SYRIN IM ONE (18:16)
[2017-06-01] MEDS ORDERED: morphine CARPU-JECT 10 MG/1 ML DISP.SYRIN ONE (18:17)
[2017-06-01] MEDS ORDERED: morphine CARPU-JECT 2 MG/1 ML DISP.SYRIN IVPUSH ONE (18:18)
[2017-06-01 18:39] LABS: ALBUMIN 3.2 g/dl (3.4-5.0); ANION GAP 10 (8-16); BLOOD UREA NITROGEN 17 mg/dL (7-18); CHLORIDE 105 mmol/L (98-107); CO2 27 mmol/L (21-32); CREATININE 0.9 mg/dL (0.55-1.02); GLUCOSE,RANDOM 77 mg/dL (74-106); POTASSIUM 3.6 mmol/L (3.5-5.1); SGOT/AST 18 U/L (15-37); SGPT/ALT 24 U/L (12-78); SODIUM 142 mmol/L (136-145); TOT PROT 7.3 g/dl (6.4-8.2)
[2017-06-01 18:43] LABS: ALK PHOS 129 U/L (45-117); BILIRUBIN,TOTAL 0.4 mg/dL (0.2-1.0)
[2017-06-01] MEDS ORDERED: ENOXAPARIN NA (PORCINE) 40 MG/0.4 ML DISP.SYRIN SQ SCH (19:00)
[2017-06-01] MEDS ORDERED: PATIENT'S OWN MEDICATION (NON-FORMULARY) (Tizanidine Hcl [Zanaflex] 2 MG) PO PRN (19:02)
[2017-06-01] MEDS ORDERED: NITROGLYCERIN SUBLINGUAL 1/150 0.4 MG TAB SL PRN (19:02)
--- NOTE | 2017-06-01 19:14 | HP ---
CHIEF COMPLAINT: Inability to ambulate. PCP:Irene Chacko MD HISTORY OF PRESENT ILLNESS: 51-year-old female with history of coronary disease, [place], stroke, asthma, COPD, bipolar disorder, schizophrenia, hypertension, hyperlipidemia, hypothyroidism, diabetes, obesity, migraines, PTSD sent in from [place] for inability to ambulate. She states that her pain has been about the same since she left but is unable to ambulate on her own without assist. Her adult home states that is she is unable to ambulate on her own she is not allowed to be there. She also mentions a few hours of vague chest pain. She states the pain is not localized and intermittent in nature. It is not related to activity or associated with sweating or nausea. She endorses subjective and chills however found to be afebrile and lying comfortably at the time of this H&P. ER course was notable for: (1)EKG shows NSR with no ST or T wave abnormalities. Troponin I (-) x1 (2)Given 4mg IV morphine for pain control. (3)CXR shows no acute pathology. Recent Travel: NONE PAST MEDICAL HISTORY: CAD, [place], CVA, Asthma, COPD, Bipolar disorder, HTN, HLD, Hypothyroidism, DM, morbid obesity, cocaine use, PUD, PTSD, migraines PAST SURGICAL HISTORY: hysterectomy and laminectomy Social History: Smoking: yes, quit 2016 after being admitted to [facility]. 25 pack year history prior. Alcohol: no Drugs: cocaine, marijuana Family History: Allergies hydromorphone HCl [From Dilaudid] Allergy (Intermediate, Verified 06/01/17 17:07 ) Itching amoxicillin [Amoxicillin] Allergy (Verified 06/01/17 17:07) ampicillin Allergy (Verified 06/01/17 17:07) aspirin Allergy (Verified 06/01/17 17:07) Difficulty Breathing cranberry Allergy (Verified 06/01/17 17:07) Rash doxycycline Allergy (Verified 06/01/17 17:07) Rash Fish Containing Products Allergy (Verified 06/01/17 17:07) Difficulty Breathing haloperidol [From Haldol] Allergy (Verified 06/01/17 17:07) Rash haloperidol lactate [From Haldol] Allergy (Verified 06/01/17 17:07) Rash ibuprofen [From Motrin] Allergy (Verified 06/01/17 17:07) Difficulty Breathing ketorolac tromethamine [From Toradol] Allergy (Verified 06/01/17 17:07) Rash levofloxacin [From Levaquin] Allergy (Verified 06/01/17 17:07) Rash milk Allergy (Verified 06/01/17 17:07) Difficulty Breathing oxycodone HCl [From Percocet] Allergy (Verified 06/01/17 17:07) Rash Penicillins Allergy (Verified 06/01/17 17:07) Difficulty Breathing sulfamethoxazole [From Bactrim] Allergy (Verified 06/01/17 17:07) Rash trimethoprim [From Bactrim] Allergy (Verified 06/01/17 17:07) warfarin sodium [From Coumadin] Allergy (Verified 06/01/17 17:07) Gravy Allergy (Unknown, Uncoded 06/01/17 17:07) Cranberry/Cranberry juice Allergy (Uncoded 06/01/17 17:07) raw tomato Allergy (Uncoded 06/01/17 17:07) HOME MEDICATIONS: Home Medications Medication Instructions Recorded Albuterol Sulfate Inhaler - 1 puff IH Q4H 03/15/17 [Ventolin HFA Inhaler -] Budesonide/Formeterol Fumarate 1 inh PO DAILY 03/15/17 [SYMBICORT 80/4.5mcg -] Clonazepam [Klonopin] 1 mg PO BID 03/15/17 Morphine *Sr* [MS Contin -] 15 mg PO Q6H 03/15/17 Nitroglycerin [Nitrostat] 0.6 mg SL PRN PRN 03/15/17 Polyethylene Glycol 3350 [Miralax 17 gm PO DAILY 03/15/17 119 gm Btl -] Tizanidine HCl [Zanaflex] 2 mg PO TID PRN 05/13/17 Apixaban [Eliquis] 5 mg PO BID #30 tablet 05/30/17 Benztropine Mesylate [Cogentin -] 1 mg PO DAILY #30 tablet 05/30/17 Bupropion HCl [Wellbutrin Xl] 300 mg PO DAILY #30 tab.er.24h 05/30/17 Divalproex [Depakote -] 750 mg PO HS #30 tablet.ec 05/30/17 Docusate Sodium [Colace -] 300 mg PO HS #30 capsule 05/30/17 Ferrous Sulfate 325 mg PO DAILY #30 tablet 05/30/17 Fluoxetine HCl [Prozac -] 40 mg PO DAILY #30 capsule 05/30/17 Furosemide [Lasix] 40 mg PO DAILY #30 tablet 05/30/17 Gabapentin [Neurontin] 300 mg PO TID #90 tablet 05/30/17 Levothyroxine [Synthroid -] 50 mcg PO DAILY #30 tablet 05/30/17 Metformin HCl [Glucophage -] 500 mg PO BID #30 tablet 05/30/17 Metoprolol Succinate [Toprol XL -] 12.5 mg PO BID #30 tab.sr.24h 05/30/17 Pantoprazole Sodium [Protonix] 40 mg PO DAILY #30 tablet.dr 05/30/17 Quetiapine Fumarate [Seroquel] 300 tab PO HS #30 tablet 05/30/17 Sennosides [Senna -] 2 tab PO HS #30 tablet 05/30/17 Simvastatin [Zocor -] 40 mg PO HS #30 tablet 05/30/17 REVIEW OF SYSTEMS CONSTITUTIONAL: loss of appetite Absent: fever, chills, diaphoresis, generalized weakness, malaise, , weight change HEENT: Absent: rhinorrhea, nasal congestion, throat pain, throat swelling, difficulty swallowing, mouth swelling, ear pain, eye pain, visual changes CARDIOVASCULAR: Absent: chest pain, syncope, palpitations, irregular heart rate, lightheadedness , peripheral edema RESPIRATORY: Absent: cough, shortness of breath, dyspnea with exertion, orthopnea, wheezing, stridor, hemoptysis GASTROINTESTINAL: Absent: abdominal pain, abdominal distension, nausea, vomiting, diarrhea, constipation, melena, hematochezia GENITOURINARY: Absent: dysuria, frequency, urgency, hesitancy, hematuria, flank pain, genital pain MUSCULOSKELETAL: joint swelling, back pain Absent: myalgia, arthralgia, , neck pain SKIN: Absent: rash, itching, pallor HEMATOLOGIC/IMMUNOLOGIC: Absent: easy bleeding, easy bruising, lymphadenopathy, frequent infections ENDOCRINE: Absent: unexplained weight gain, unexplained weight loss, heat intolerance, cold intolerance NEUROLOGIC: Absent: headache, focal weakness or paresthesias, dizziness, unsteady gait, seizure, mental status changes, bladder or bowel incontinence PSYCHIATRIC: Absent: anxiety, depression, suicidal or homicidal ideation, hallucinations. PHYSICAL EXAMINATION Vital Signs - 24 hr 06/01/17 06/01/17 17:13 17:18 Temperature 98.5 F Pulse Rate 71 Respiratory 17 Rate Blood Pressure 119/63 O2 Sat by Pulse 100 100 Oximetry (%) GENERAL: obese, middle aged female, alert, in no acute distress, eating breakfast HEENT: NC, AT LUNGS: CTAB, no wheezes, no crackles, no accessory muscle use. HEART: RRR, Normal S1S2 with no M/G/R ABDOMEN: obese abdomen, soft, nontender, nondistended, normoactive bowel sounds , no guarding, or organomegally. EXTREMITIES: no edema, right leg mildly tender to palpation with limited ROM, limited RLE examination 1/5 strength, Neurovascularly intact LE bilaterally. NEUROLOGICAL: Normal speech, gait not observed. Laboratory Results - last 24 hr 06/01/17 06/01/17 06/01/17 18:08 18:08 18:08 WBC 10.6 H D RBC 4.27 Hgb 12.1 Hct 35.4 MCV 83.0 MCH 28.4 MCHC 34.2 RDW 16.0 H Plt Count 284 D MPV 10.4 Neutrophils % 77.4 Lymphocytes % 16.5 D Monocytes % 4.7 Eosinophils % 0.3 Basophils % 1.1 Sodium 142 Potassium 3.6 Chloride 105 Carbon Dioxide 27 Anion Gap 10 BUN 17 D Creatinine 0.9 Creat Clearance w eGFR > 60 Random Glucose 77 Calcium 9.0 Total Bilirubin 0.4 D AST 18 D ALT 24 Alkaline Phosphatase 129 H Creatine Kinase 214 H Creatine Kinase Index 0.8 CK-MB (CK-2) 1.85 Troponin I < 0.02 Total Protein 7.3 Albumin 3.2 L ASSESSMENT/PLAN: 51 y/o F with PMHX CAD, s/p [place], CVA/TIA, asthma, schizophrenia, HTN, and other medical problems who presented after a mechanical fall and was found to have R pelvic Fx and was discharged to her home being admitted for inability to ambulate. Problem List - Problem (1) Inability to ambulate due to hip Assessment/Plan: WIll need PT eval for SNF placement. * Placed on previous pain managemnt regimen of MS contin 15mg Q8H (2) CAD (coronary artery disease) Assessment/Plan: Unlikely presentation for ACS. * Will send for one more set of Troponin * EKG WNL * may need nuclear stress test in the future * Atorvastatin Calcium (Lipitor -) 20 mg PO HS * Metoprolol Succinate (Toprol Xl -) 12.5 mg PO BID (3) Pelvic fracture Assessment/Plan: Known pelvic fracture with conservative management. * Evaluated and cleared by Ortho since previous admission. (4) Asthma Assessment/Plan: Well controlled on current regimen will continue: * Albuterol Sulfate (Ventolin Hfa Inhaler -) 1 puff IH Q4H PRN * Budesonide/Formoterol Fumarate1 puff IH DAILY * Albuterol INH PRN * Supplemental O2 PRN maintain SpO2 >90% (5) Bipolar 1 disorder, depressed Assessment/Plan: * Fluoxetine HCl (Prozac -) 40 mg PO DAILY * Quetiapine Fumarate (Seroquel -) 300 mg PO DAILY (6) Chronic low back pain (7) DVT (deep venous thrombosis) Assessment/Plan: Will contine AC with Eliquis. (8) Diabetes type 2, controlled Assessment/Plan: Well controlled at this time * ADA sodium controlled diet * BGM TIDAC * Novolog ISS TIDAC Qualifiers: 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 complication status: with unspecified complications 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 detention insulin use: without detention use Qualified Code( s): E11.8 - Type 2 diabetes mellitus with unspecified complications (9) HTN (hypertension) (10) Hyperlipidemia (11) Morbid obesity Assessment/Plan: counseled on the importance of loosing weight and maintaining a healthy diet. Visit type - Emergency Visit Emergency Visit: Yes Care time: The patient presented to the Emergency Department on the above date and was hospitalized for further evaluation of their emergent condition. - New Patient This patient is new to me today: Yes Date on this admission: 06/01/17 - Critical Care Critical Care patient: No
--- NOTE | 2017-06-01 19:35 | PN ---
Teaching Attending Note Name of Resident: Neftaly Purvis ATTENDING PHYSICIAN STATEMENT I saw and evaluated the patient. Chart, data, and imaging reviewed. I reviewed the resident's note and discussed the case with the resident. I agree with the resident's findings and plan as documented. SUBJECTIVE: 51-year-old woman with history of coronary disease, [place], stroke, asthma, COPD, bipolar disorder, schizophrenia, hypertension, hyperlipidemia, hypothyroidism, diabetes, obesity, migraines, PTSD, sent from [facility] for inability to ambulate. She was admitted earlier this month for right acetabulum fracture which was managed nonsurgically. Was discharged on 05/30 from hospital. Patient also c/o some vague chest pain which she also had on her last admission and was worked up for. No shortness of breath and no relation to exertion. EKG wnl and troponin negative x1 in ER. OBJECTIVE: Last Vital Signs Temp Pulse Resp BP Pulse Ox 98.2 F 89 18 106/59 100 06/01/17 19:35 06/01/17 19:35 06/01/17 19:35 06/01/17 19:35 06/01/17 19:35 General- NAD, nontoxic appearing, no shortness of breath, speaks in full sentences, morbidly obese HEENT -at, nc, no sinus tenderness, PERRLA Neck - supple, no JVD CV s1+s2+ RRR, no murmur Chest CTA b/l Abdomen- obese, soft, nontender to palpation Ext - no pedal edema Abnormal Lab Results 06/01/17 06/01/17 06/01/17 18:08 18:08 18:08 WBC 10.6 H D RDW 16.0 H Alkaline Phosphatase 129 H Creatine Kinase 214 H Albumin 3.2 L EKG- NSR, poor R wave progression, no significant ST- T changes CXR -seen without official reading- hardware in thoracic spine, no pulmonary edema or pleural effusions seen ASSESSMENT AND PLAN: #Inability to ambulate- patient is not able to return to her facility ([facility] ) due to inability to ambulate effectively. Requires physical therapy evaluation. -Admit to med/surg -fall precautions -Physical therapy evaluation -pain control #Vague atypical chest pain -very unlikely ACS, EKG not suggestive of MD. troponin x1. Patient was evaluated by cardiology on previous admission. -send one more troponin -consider outpatient nuclear stress test #Depression- patient denied active suicidal ideation #Restart home medications for chronic medical problems #DVT ppx -heparin sc -
[2017-06-01] MEDS: INSULIN SLIDING SCALE (NOVOLOG) 1 VIAL SQ SCH (20:52)
[2017-06-01] MEDS: GABAPENTIN 300 MG CAPSULE (FP) PO SCH (21:59)
[2017-06-01] MEDS: clonazePAM 0.5 MG TABLET PO SCH (21:59)
[2017-06-01] MEDS: ATORVASTATIN CA 20 MG TABLET (FP) PO SCH (21:59)
[2017-06-01] MEDS: SENNOSIDES 8.6MG TABLET (FP) PO SCH (21:59)
[2017-06-01] MEDS: DOCUSATE SODIUM 100 MG CAPSULE (FP) PO SCH (21:59)
[2017-06-01] MEDS ORDERED: PATIENT'S OWN MEDICATION (NON-FORMULARY) (Simvastatin 40 MG) PO SCH (22:00)
[2017-06-01] MEDS ORDERED: GABAPENTIN 300 MG PO SCH (22:00)
[2017-06-01] MEDS ORDERED: QUEtiapine FUMARATE 300 MG TABLET PO SCH (22:00)
[2017-06-01] MEDS ORDERED: PATIENT'S OWN MEDICATION (NON-FORMULARY) (Clonazepam [Klonopin] 1 MG) PO SCH (22:00)
[2017-06-01] MEDS: METOPROLOL SUCCINATE 25 MG TAB.SR.24H (FP) PO SCH (22:00)
[2017-06-01] MEDS: morphine SO4 SUSTAINED ACTING 15 MG TABLET.SA PO SCH (22:00)
[2017-06-01] MEDS: APIXABAN 5 MG TABLET PO SCH (22:04)
[2017-06-01] MEDS: DIVALPROEX SODIUM 250 MG TABLET E.C. (FP) PO SCH (22:04)
[2017-06-01] MEDS: QUETIAPINE FUMARATE 200 MG, QUETIAPINE FUMARATE 100 MG PO SCH (22:05)
[2017-06-02] MEDS: morphine SO4 SUSTAINED ACTING 15 MG TABLET.SA PO SCH ×3 (05:55→21:06)
[2017-06-02] MEDS: GABAPENTIN 300 MG CAPSULE (FP) PO SCH ×3 (05:55→21:06)
[2017-06-02] MEDS: LEVOTHYROXINE NA 50 MCG TABLET (FP) PO SCH (06:01)
[2017-06-02] MEDS: INSULIN SLIDING SCALE (NOVOLOG) 1 VIAL SQ SCH ×3 (06:40→17:07)
[2017-06-02 09:02] LABS: BASO % 0.9 % (0-2.0); EOS % 0.6 % (0-4.5); HEMATOCRIT 34.3 % (32.4-45.2); HEMOGLOBIN 11.6 GM/dL (10.7-15.3); LYMPH % 27.5 % (8-40); MCH 28.1 pg (25.7-33.7); MCHC 33.8 g/dl (32.0-36.0); MEAN CELL VOLUME 83.4 fl (80-96); MEAN PLT VOLUME 9.5 fl (7.5-11.1); MONO % 6.7 % (3.8-10.2); NEUT % 64.3 % (42.8-82.8); PLATELET COUNT 270 K/MM3 (134-434); RBC 4.11 M/mm3 (3.60-5.2); RDW 15.9 % (11.6-15.6); WHITE BLOOD COUNT 8.7 K/mm3 (4.0-10.0)
[2017-06-02 09:35] LABS: ANION GAP 9 (8-16); BLOOD UREA NITROGEN 18 mg/dL (7-18); CALCIUM 8.3 mg/dL (8.5-10.1); CHLORIDE 107 mmol/L (98-107); CO2 27 mmol/L (21-32); GLUCOSE,RANDOM 62 mg/dL (74-106); MAGNESIUM 1.8 mg/dL (1.8-2.4); PHOSPHOROUS 4.5 mg/dL (2.5-4.9); POTASSIUM 3.9 mmol/L (3.5-5.1); SGOT/AST 14 U/L (15-37); SGPT/ALT 21 U/L (12-78); SODIUM 143 mmol/L (136-145)
[2017-06-02 09:37] LABS: ALK PHOS 115 U/L (45-117); BILIRUBIN,TOTAL 0.4 mg/dL (0.2-1.0)
[2017-06-02] MEDS ORDERED: PATIENT'S OWN MEDICATION (NON-FORMULARY) (Ferrous Sulfate [Ferrous Sulfate] 325 MG) PO SCH (10:00)
[2017-06-02] MEDS ORDERED: BENZTROPINE MESYLATE 0.5 MG TABLET (FP) PO SCH (10:00)
[2017-06-02] MEDS ORDERED: QUEtiapine FUMARATE 300 MG TABLET PO SCH (10:00)
[2017-06-02] MEDS ORDERED: PATIENT'S OWN MEDICATION (NON-FORMULARY) (Bupropion Hcl [Wellbutrin Xl] 300 MG) PO SCH (10:00)
[2017-06-02] MEDS: clonazePAM 0.5 MG TABLET PO SCH ×2 (10:17→21:06)
[2017-06-02] MEDS: FUROSEMIDE 40 MG TABLET (FP) PO SCH (10:17)
[2017-06-02] MEDS: APIXABAN 5 MG TABLET PO SCH ×2 (10:17→21:36)
[2017-06-02] MEDS: FERROUS SO4 325 MG TABLET (FP) PO SCH (10:17)
[2017-06-02] MEDS: PANTOPRAZOLE 40 MG TABLET (FP) PO SCH (10:17)
--- NOTE | 2017-06-02 10:31 | EKG ---
Test Reason : Blood Pressure : / mmHG Vent. Rate : 081 BPM Atrial Rate : 081 BPM P-R Int : 142 ms QRS Dur : 094 ms QT Int : 406 ms P-R-T Axes : 037 015 055 degrees QTc Int : 471 ms NORMAL SINUS RHYTHM POOR R WAVE PROGRESSION ABNORMAL ECG WHEN COMPARED WITH ECG OF 21-MAY-2017 19:43, T WAVE INVERSION NOW EVIDENT IN ANTERIOR LEADS CLINICAL CORRELATION IS RECOMMENDED Confirmed by TAMIE DANIELS, PRITI ([id number]) on 06/02/2017 10:30:51 AM Referred By: Confirmed By:PRITI WILLETT MD
[2017-06-02] MEDS: FLUoxetine HCL 20 MG CAPSULE (FP) PO SCH (11:01)
[2017-06-02] MEDS: BUDESONIDE/FORMETEROL FUMARATE 80/4.5 mcg INHALER IH SCH (11:09)
[2017-06-02] MEDS: POLYETHYLENE GLYCOL 3350 119 GM BTL PO SCH (11:09)
[2017-06-02] MEDS: METOPROLOL SUCCINATE 25 MG TAB.SR.24H (FP) PO SCH ×2 (13:23→21:07)
--- NOTE | 2017-06-02 13:45 | PN ---
Progress Note (short form) - Note Progress Note: Subjective: no fever or chills, has no abd pain, or CP or SOB. has pain in R LE ( thigh and calf). auditory hallucinations with SI Objective: Vital Signs: Last Vital Signs Temp Pulse Resp BP Pulse Ox 97.6 F 97 H 18 106/66 95 06/02/17 06:00 06/02/17 11:03 06/02/17 06:00 06/02/17 06:00 06/02/17 11:03 Laboratory Results - last 24 hr 06/01/17 06/01/17 06/01/17 18:08 18:08 18:08 WBC 10.6 H D RBC 4.27 Hgb 12.1 Hct 35.4 MCV 83.0 MCH 28.4 MCHC 34.2 RDW 16.0 H Plt Count 284 D MPV 10.4 Neutrophils % 77.4 Lymphocytes % 16.5 D Monocytes % 4.7 Eosinophils % 0.3 Basophils % 1.1 Sodium 142 Potassium 3.6 Chloride 105 Carbon Dioxide 27 Anion Gap 10 BUN 17 D Creatinine 0.9 Creat Clearance w eGFR > 60 POC Glucometer Random Glucose 77 Calcium 9.0 Phosphorus Magnesium Total Bilirubin 0.4 D AST 18 D ALT 24 Alkaline Phosphatase 129 H Creatine Kinase 214 H Creatine Kinase Index 0.8 CK-MB (CK-2) 1.85 Troponin I < 0.02 Total Protein 7.3 Albumin 3.2 L 06/01/17 06/02/17 06/02/17 20:45 00:27 05:59 WBC RBC Hgb Hct MCV MCH MCHC RDW Plt Count MPV Neutrophils % Lymphocytes % Monocytes % Eosinophils % Basophils % Sodium Potassium Chloride Carbon Dioxide Anion Gap BUN Creatinine Creat Clearance w eGFR POC Glucometer 132 152 Random Glucose Calcium Phosphorus Magnesium Total Bilirubin AST ALT Alkaline Phosphatase Creatine Kinase Creatine Kinase Index CK-MB (CK-2) Troponin I < 0.02 Total Protein Albumin 06/02/17 06/02/17 06/02/17 08:45 08:45 11:12 WBC 8.7 RBC 4.11 Hgb 11.6 Hct 34.3 MCV 83.4 MCH 28.1 MCHC 33.8 RDW 15.9 H Plt Count 270 MPV 9.5 Neutrophils % 64.3 Lymphocytes % 27.5 D Monocytes % 6.7 Eosinophils % 0.6 D Basophils % 0.9 Sodium 143 Potassium 3.9 Chloride 107 Carbon Dioxide 27 Anion Gap 9 BUN 18 Creatinine 1.0 Creat Clearance w eGFR 58.69 POC Glucometer 119 Random Glucose 62 L Calcium 8.3 L Phosphorus 4.5 Magnesium 1.8 Total Bilirubin 0.4 AST 14 L D ALT 21 Alkaline Phosphatase 115 Creatine Kinase Creatine Kinase Index CK-MB (CK-2) Troponin I Total Protein 7.0 Albumin 3.0 L Physical Exam: NAD, awake, alert , and cooperative CV: RRR Lungs: CTAB Abd: soft, No TTP , ND, NL BS. Ext: no edema , TTP over R groin , thigh and calf ASSESSMENT AND PLAN: 51 y/o lady with h/o CAD, s/p DC, CVA/TIA, asthma, schizophrenia, HTN, and other medical problems who presented after a mechanical fall and was found to have R pelvic Fx 1-Inability to ambulate , due to recent R acetabular Fx. - pain control with home regimen - PT 2- SI with auditory hallucinatins: - psych consult and 1:1 observation - Cont psych meds 3- Atypical CP : nl EKG with no ischemic changes. nl trop - cont home BB - not on asa 4- Recent DVT : - cont eliquis Visit type - Emergency Visit Emergency Visit: Yes ED Registration Date: 06/01/17 Care time: The patient presented to the Emergency Department on the above date and was hospitalized for further evaluation of their emergent condition. - New Patient This patient is new to me today: No - Critical Care Critical Care patient: No
[2017-06-02] MEDS ORDERED: PT OWN MED DRAWER 7, Y5N ONE (21:03)
[2017-06-02] MEDS: SENNOSIDES 8.6MG TABLET (FP) PO SCH (21:06)
[2017-06-02] MEDS: ATORVASTATIN CA 20 MG TABLET (FP) PO SCH (21:06)
[2017-06-02] MEDS: DOCUSATE SODIUM 100 MG CAPSULE (FP) PO SCH (21:06)
[2017-06-02] MEDS: QUETIAPINE FUMARATE 200 MG, QUETIAPINE FUMARATE 100 MG PO SCH (21:07)
[2017-06-02] MEDS: DIVALPROEX SODIUM 250 MG TABLET E.C. (FP) PO SCH (21:07)
[2017-06-03] MEDS: GABAPENTIN 300 MG CAPSULE (FP) PO SCH ×3 (06:08→22:22)
[2017-06-03] MEDS: morphine SO4 SUSTAINED ACTING 15 MG TABLET.SA PO SCH ×3 (06:08→21:28)
[2017-06-03] MEDS: INSULIN SLIDING SCALE (NOVOLOG) 1 VIAL SQ SCH ×3 (06:08→17:12)
[2017-06-03] MEDS: LEVOTHYROXINE NA 50 MCG TABLET (FP) PO SCH (06:08)
--- NOTE | 2017-06-03 09:44 | PN ---
Teaching Attending Note Name of Resident: Anisha Wells ATTENDING PHYSICIAN STATEMENT I saw and evaluated the patient. I reviewed the resident's note and discussed the case with the resident. I agree with the resident's findings and plan as documented. SUBJECTIVE: no fever or chills. still has SI , and auditory hallucinations. OBJECTIVE: NAD, awake, alert , and cooperative CV: RRR Lungs: CTAB Abd: soft, TTP all over abd , even with piching the superficial skin Ext: no edema , TTP over R groin, thigh and calf ASSESSMENT AND PLAN: 51 y/o lady with h/o CAD, s/p CT, CVA/TIA, asthma, schizophrenia, HTN, and other medical problems who presented after a mechanical fall and was found to have R pelvic Fx 1-Inability to ambulate , due to recent R acetabular Fx. - pain control with home regimen - PT 2- SI with auditory hallucinatins: - psych consult and 1:1 observation - Cont psych meds - finger food, no cords or wires. RN informed 3- Atypical CP : nl EKG with no ischemic changes. nl trop - cont home BB - not on asa 4- Recent DVT : - cont eliquis Dispo : pending PT eval and psych consult
[2017-06-03] MEDS ORDERED: BENZTROPINE MESYLATE 1 MG TABLET (FP) PO SCH (10:00)
[2017-06-03] MEDS: FERROUS SO4 325 MG TABLET (FP) PO SCH (10:36)
[2017-06-03] MEDS: clonazePAM 0.5 MG TABLET PO SCH (10:36)
[2017-06-03] MEDS: FUROSEMIDE 40 MG TABLET (FP) PO SCH (10:36)
[2017-06-03] MEDS: METOPROLOL SUCCINATE 25 MG TAB.SR.24H (FP) PO SCH ×2 (10:36→22:23)
[2017-06-03] MEDS: PANTOPRAZOLE 40 MG TABLET (FP) PO SCH (10:36)
[2017-06-03] MEDS: FLUoxetine HCL 20 MG CAPSULE (FP) PO SCH (10:37)
[2017-06-03] MEDS: POLYETHYLENE GLYCOL 3350 119 GM BTL PO SCH (10:37)
[2017-06-03] MEDS: APIXABAN 5 MG TABLET PO SCH ×2 (10:37→22:22)
[2017-06-03] MEDS: BUDESONIDE/FORMETEROL FUMARATE 80/4.5 mcg INHALER IH SCH (10:38)
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
--- NOTE | 2017-06-03 15:46 | PN ---
Physical Exam: SUBJECTIVE: Patient seen and examined at bed side. Eating breakfast. Patient reports she heard voices of a man telling her to kill herself. She says she feels very sad. Denies chest pain, sob, cough, palpitation, abdominal pain, nausea or vomiting. Has pain in the right leg. 1:1 No acute overnight events. RN mentions that she orders double portions to eat- like eggs, juice daily. OBJECTIVE: Vital Signs Period Temp Pulse Resp BP Sys/Schultz Pulse Ox Last 24 Hr 97.5 F-98.9 F 75-92 17-18 103-125/60-65 96 GENERAL: The patient is obese, comfortably sitting in bed, eating, awake, alert , and fully oriented, in no acute distress. HEAD: Normal with no signs of trauma. EYES: EOM intact, no pallor or icterus. ENT: Ears normal, moist mucous membranes. NECK: Supple. LUNGS: Breath sounds equal, clear to auscultation bilaterally, no wheezes, no crackles, no accessory muscle use. HEART: Regular rate and rhythm, S1, S2 without murmur, rub or gallop. ABDOMEN: Soft, nontender, nondistended, normoactive bowel sounds, no guarding, no rebound, no hepatosplenomegaly, no masses. EXTREMITIES: 2+ pulses, warm, well-perfused, no edema. Right lower ext: Tender to palpation in the proximal leg, limited ROM, pulses intact. NEUROLOGICAL: No facial droop. Normal speech, gait not observed. PSYCH: Normal mood, normal affect. SKIN: Warm, dry, normal turgor, no rashes or lesions noted Laboratory Results - last 24 hr 06/02/17 06/02/17 06/03/17 17:47 21:05 06:07 POC Glucometer 104 135 82 06/03/17 11:43 POC Glucometer 127 Active Medications Generic Name Dose Route Start Last Admin Trade Name Freq PRN Reason Stop Dose Admin Albuterol Sulfate 1 puff 06/01/17 19:15 Ventolin Hfa Inhaler - IH Q4H PRN Apixaban 5 mg 06/01/17 22:00 06/03/17 10:37 Eliquis - PO 5 mg BID [facility] Administration Atorvastatin Calcium 20 mg 06/01/17 22:00 06/02/17 21:06 Lipitor - PO 20 mg HS [facility] Administration Budesonide/Formoterol Fumarate 1 puff 06/02/17 10:00 06/03/17 10:38 Symbicort 80/4.5mcg - IH Not Given DAILY [facility] Divalproex Sodium 750 mg 06/01/17 22:00 06/02/17 21:07 Depakote - PO 750 mg HS [facility] Administration Docusate Sodium 300 mg 06/01/17 22:00 06/02/17 21:06 Colace - PO 300 mg HS [facility] Administration Ferrous Sulfate 325 mg 06/02/17 10:00 06/03/17 10:36 Feosol - PO 325 mg DAILY [facility] Administration Fluoxetine HCl 40 mg 06/02/17 10:00 06/03/17 10:37 Prozac - PO 40 mg DAILY [facility] Administration Furosemide 40 mg 06/02/17 10:00 06/03/17 10:36 Lasix - PO 40 mg DAILY [facility] Administration Gabapentin 300 mg 06/01/17 22:00 06/03/17 13:56 Neurontin - PO 300 mg TID [facility] Administration Insulin Aspart 1 vial 06/01/17 19:00 06/03/17 11:30 Novolog Vial Sliding Scale - SQ Not Given TIDAC [facility] Protocol Levothyroxine Sodium 50 mcg 06/02/17 07:00 06/03/17 06:08 Synthroid - PO 50 mcg DAILY@0700 [facility] Administration Metoprolol Succinate 12.5 mg 06/01/17 22:00 06/03/17 10:36 Toprol Xl - PO 12.5 mg BID [facility] Administration Morphine Sulfate 15 mg 06/01/17 22:00 06/03/17 13:57 Ms Contin - PO 15 mg TID [facility] Administration Nitroglycerin 0.6 mg 06/01/17 19:02 Nitrostat - SL PRN PRN chest pain Non-Formulary Medication 2 mg 06/01/17 19:02 Tizanidine Hcl [Zanaflex] PO TID PRN MUSCLE SPASMS Olanzapine 15 mg 06/03/17 22:00 Zyprexa - PO BID [facility] Pantoprazole Sodium 40 mg 06/02/17 10:00 06/03/17 10:36 Protonix - PO 40 mg DAILY [facility] Administration Polyethylene Glycol 17 gm 06/02/17 10:00 06/03/17 10:37 Miralax (For Daily Use) - PO Not Given DAILY [facility] Senna 2 tab 06/01/17 22:00 06/02/17 21:06 Senna - PO 2 tab HS [facility] Administration ASSESSMENT/PLAN: Patient is a 51 year old Female with significant PMHx of CAD, s/p [place], CVA/TIA, asthma, schizophrenia, HTN, and other medical problems who presented after a mechanical fall and was found to have R pelvic Fx # Right acetabular fracture and Right inferior pubic ramus fracture after a mechanical fall c/o pain in the right leg, has limited ROM, distal pulses intact No surgical intervention at this time Pain control # Depression/likely has Bipolar Has suicidal ideation but no self harm. continue 1:1 Appreciate pschy consult, agree to transfer to psych unit but difficult due to fracture of the right femur. Added Olanzapine 15mg PO BID today. Continue bupropion, prozac, depakote # Diabetes Mellitus A1c pending Increased Insulin sliding scale coverage Gabapentin # UTI-resolved # Asthma-not in exacerbation Continue symbicort and ventolin # Hypothyroidism Continue Synthroid # Anemia Continue ferrous sulfate # Hyperlipidemia Continue lipitor # Constipation Continue colace, miralax, senna # H/O CAD and [place] Cont metoprolol # H/o CVA # FEN Not on IV fluids Electrolytes WNL Diabetic diet # Prophylaxis For DVT: cont eliquis 5 BID For GI: On Protonix #Dispo- Duration of stay unknown. Needs a NH or a psych facility. Illness, Investigation and Plan of care explained to the patient. Case discussed with Dr. Pineda. Visit type - Emergency Visit Emergency Visit: Yes ED Registration Date: 06/01/17 Care time: The patient presented to the Emergency Department on the above date and was hospitalized for further evaluation of their emergent condition. - New Patient This patient is new to me today: Yes Date on this admission: 06/03/17 - Critical Care Critical Care patient: No
[2017-06-03] MEDS ORDERED: PT OWN MED DRAWER 7, Y5N ONE ×2 (17:20→20:26)
[2017-06-03] MEDS: DOCUSATE SODIUM 100 MG CAPSULE (FP) PO SCH (22:21)
[2017-06-03] MEDS: DIVALPROEX SODIUM 250 MG TABLET E.C. (FP) PO SCH (22:21)
[2017-06-03] MEDS: ATORVASTATIN CA 20 MG TABLET (FP) PO SCH (22:22)
[2017-06-03] MEDS: SENNOSIDES 8.6MG TABLET (FP) PO SCH (22:23)
[2017-06-03] MEDS: OLANZapine 5 MG TABLET PO SCH (22:24)
[2017-06-03] MEDS: ALBUTEROL SO4 18 GM HFA INHALER IH PRN (23:03)
[2017-06-03] MEDS ORDERED: clonazePAM 0.5 MG TABLET PO ONE (23:25)
[2017-06-04] MEDS ORDERED: MELATONIN 5 MG TABLETS PO PRN (00:56)
[2017-06-04] MEDS: morphine SO4 SUSTAINED ACTING 15 MG TABLET.SA PO SCH ×3 (06:22→22:25)
[2017-06-04] MEDS: INSULIN SLIDING SCALE (NOVOLOG) 1 VIAL SQ SCH ×3 (06:23→16:24)
[2017-06-04] MEDS: GABAPENTIN 300 MG CAPSULE (FP) PO SCH ×3 (06:23→22:24)
[2017-06-04] MEDS: LEVOTHYROXINE NA 50 MCG TABLET (FP) PO SCH (06:23)
[2017-06-04] MEDS: OLANZapine 5 MG TABLET PO SCH ×2 (09:28→22:24)
[2017-06-04] MEDS: FLUoxetine HCL 20 MG CAPSULE (FP) PO SCH (09:28)
[2017-06-04] MEDS: PANTOPRAZOLE 40 MG TABLET (FP) PO SCH (09:28)
[2017-06-04] MEDS: FUROSEMIDE 40 MG TABLET (FP) PO SCH (09:29)
[2017-06-04] MEDS: FERROUS SO4 325 MG TABLET (FP) PO SCH (09:29)
[2017-06-04] MEDS: METOPROLOL SUCCINATE 25 MG TAB.SR.24H (FP) PO SCH ×2 (09:29→22:25)
[2017-06-04] MEDS: POLYETHYLENE GLYCOL 3350 119 GM BTL PO SCH (09:36)
[2017-06-04] MEDS: APIXABAN 5 MG TABLET PO SCH ×2 (09:43→22:28)
[2017-06-04 11:13] LABS: ANION GAP 10 (8-16); BLOOD UREA NITROGEN 22 mg/dL (7-18); CALCIUM 8.6 mg/dL (8.5-10.1); CHLORIDE 104 mmol/L (98-107); CO2 27 mmol/L (21-32); GLUCOSE,RANDOM 118 mg/dL (74-106); POTASSIUM 4.2 mmol/L (3.5-5.1); SODIUM 141 mmol/L (136-145)
[2017-06-04 11:15] LABS: CREATININE 1.1 mg/dL (0.55-1.02)
[2017-06-04] MEDS: BUDESONIDE/FORMETEROL FUMARATE 80/4.5 mcg INHALER IH SCH (11:41)
--- NOTE | 2017-06-04 16:13 | PN ---
Physical Exam: SUBJECTIVE: Patient seen and examined. Pt reports usual leg pain and back pain. She denies SI. OBJECTIVE: Vital Signs Period Temp Pulse Resp BP Sys/Schultz Pulse Ox Last 24 Hr 97.6 F-98.3 F 78-89 18-18 105-118/56-70 96-98 GENERAL: middle aged female, lying in bed, in NAD, eating breakfast HEENT: NC, AT NECK: Trachea midline, full range of motion, supple. LUNGS: Breath sounds equal, clear to auscultation bilaterally, no wheezes, no crackles, no accessory muscle use. HEART: Regular rate and rhythm, S1, S2 without murmur, rub or gallop. ABDOMEN: Soft, nontender, nondistended, normoactive bowel sounds, no guarding, no rebound, no hepatosplenomegaly, no masses. EXTREMITIES: minimally tender to palpation NEUROLOGICAL: Cranial nerves II through XII grossly intact. Normal speech, gait not observed. Laboratory Results - last 24 hr 06/03/17 06/04/17 06/04/17 17:09 06:22 10:05 Sodium 141 Potassium 4.2 Chloride 104 Carbon Dioxide 27 Anion Gap 10 BUN 22 H D Creatinine 1.1 H POC Glucometer 127 93 Random Glucose 118 H D Calcium 8.6 06/04/17 11:39 Sodium Potassium Chloride Carbon Dioxide Anion Gap BUN Creatinine POC Glucometer 96 Random Glucose Calcium Active Medications Generic Name Dose Route Start Last Admin Trade Name Freq PRN Reason Stop Dose Admin Albuterol Sulfate 1 puff 06/01/17 19:15 06/03/17 23:03 Ventolin Hfa Inhaler - IH 1 puff Q4H PRN Administration Apixaban 5 mg 06/01/17 22:00 06/04/17 09:43 Eliquis - PO 5 mg BID [facility] Administration Atorvastatin Calcium 20 mg 06/01/17 22:00 06/03/17 22:22 Lipitor - PO 20 mg HS [facility] Administration Budesonide/Formoterol Fumarate 1 puff 06/02/17 10:00 06/04/17 11:41 Symbicort 80/4.5mcg - IH Not Given DAILY [facility] Divalproex Sodium 750 mg 06/01/17 22:00 06/03/17 22:21 Depakote - PO 750 mg HS [facility] Administration Docusate Sodium 300 mg 06/01/17 22:00 06/03/17 22:21 Colace - PO 300 mg HS [facility] Administration Ferrous Sulfate 325 mg 06/02/17 10:00 06/04/17 09:29 Feosol - PO 325 mg DAILY [facility] Administration Fluoxetine HCl 40 mg 06/02/17 10:00 06/04/17 09:28 Prozac - PO 40 mg DAILY [facility] Administration Furosemide 40 mg 06/02/17 10:00 06/04/17 09:29 Lasix - PO 40 mg DAILY [facility] Administration Gabapentin 300 mg 06/01/17 22:00 06/04/17 14:13 Neurontin - PO 300 mg TID [facility] Administration Insulin Aspart 1 vial 06/03/17 16:30 06/04/17 11:42 Novolog Vial Sliding Scale - SQ Not Given TIDAC [facility] Protocol Levothyroxine Sodium 50 mcg 06/02/17 07:00 06/04/17 06:23 Synthroid - PO 50 mcg DAILY@0700 [facility] Administration Metoprolol Succinate 12.5 mg 06/01/17 22:00 06/04/17 09:29 Toprol Xl - PO 12.5 mg BID [facility] Administration Morphine Sulfate 15 mg 06/01/17 22:00 06/04/17 14:12 Ms Contin - PO 15 mg TID [facility] Administration Nitroglycerin 0.6 mg 06/01/17 19:02 Nitrostat - SL PRN PRN chest pain Non-Formulary Medication 2 mg 06/01/17 19:02 Tizanidine Hcl [Zanaflex] PO TID PRN MUSCLE SPASMS Olanzapine 15 mg 06/03/17 22:00 06/04/17 09:28 Zyprexa - PO 15 mg BID [facility] Administration Pantoprazole Sodium 40 mg 06/02/17 10:00 06/04/17 09:28 Protonix - PO 40 mg DAILY [facility] Administration Polyethylene Glycol 17 gm 06/02/17 10:00 06/04/17 09:36 Miralax (For Daily Use) - PO Not Given DAILY [facility] Senna 2 tab 06/01/17 22:00 06/03/17 22:23 Senna - PO 2 tab HS [facility] Administration ASSESSMENT/PLAN: 51F w/ hx of CAD s/p [place], CVA/TIA, asthma, schizophrenia, HTN, and other medical problems who presented with difficulty ambulating after a mechanical fall leading to a R pelvic Fx on last admission. # Right acetabular fracture and Right inferior pubic ramus fracture after a mechanical fall -still c/o pain in the right leg, has limited ROM, distal pulses intact -Pain control # Depression/likely has Bipolar -denies S/I at this time -continue 1:1 per psych. spoke with psych who agrees that pt can be d/c'd home if allowed by PT -Continue bupropion, prozac, depakote, olanzapine # Diabetes Mellitus -ISS -Gabapentin # Asthma -Continue symbicort and ventolin # Hypothyroidism -Continue Synthroid # Anemia -Continue ferrous sulfate # Hyperlipidemia -Continue lipitor # Constipation -Continue colace, miralax, senna # H/O CAD and [place] -Cont metoprolol #hx of DVT -continue eliquis #HTN -continue lasix, toprol # H/o CVA # FEN -Not on IV fluids -Electrolytes WNL -Diabetic diet # Prophylaxis -For DVT: cont eliquis 5 BID -For GI: On Protonix #Dispo -likely D/C home if pt is approved by physical therapy. otherwise, [facility]ORE[facility]. -as of today, pt walked 35 feet with physical therapy Case discussed with attending, Dr. Edwin Moya MD PGY1 Visit type - Emergency Visit Emergency Visit: Yes ED Registration Date: 06/01/17 Care time: The patient presented to the Emergency Department on the above date and was hospitalized for further evaluation of their emergent condition. - New Patient This patient is new to me today: No - Critical Care Critical Care patient: No
--- NOTE | 2017-06-04 18:55 | PN ---
Teaching Attending Note Name of Resident: Deondre Moya ATTENDING PHYSICIAN STATEMENT I saw and evaluated the patient. I reviewed the resident's note and discussed the case with the resident. I agree with the resident's findings and plan as documented. SUBJECTIVE: No fever or chills , denies any SI , denies auditory hallucinations OBJECTIVE: NAD, awake, alert , and cooperative CV: RRR Lungs: auscultation anteriorly reveals clear lungs, could not bend forward Ext: no edema , TTP over R groin, thigh and calf ASSESSMENT AND PLAN: 51 y/o lady with h/o CAD, s/p [place], CVA/TIA, asthma, schizophrenia, HTN, and other medical problems who presented after a mechanical fall and was found to have R pelvic Fx 1-Inability to ambulate, due to recent R acetabular Fx. - pain control with home regimen - PT, walked 35 feet today 2- SI with auditory hallucinatins: - case was d/w Dr. Grimes this afternoon, NO indication for in patient psych. and he is OK with her going home if she does well with PT - Cont psych meds. - dc suicidal precautions and 1:1 observation 3- Atypical CP : nl EKG with no ischemic changes. nl trop - cont home BB - not on asa 4- Recent DVT : - cont eliquis D/w CM
[2017-06-04] MEDS: DOCUSATE SODIUM 100 MG CAPSULE (FP) PO SCH (22:23)
[2017-06-04] MEDS: SENNOSIDES 8.6MG TABLET (FP) PO SCH (22:24)
[2017-06-04] MEDS: ATORVASTATIN CA 20 MG TABLET (FP) PO SCH (22:25)
[2017-06-04] MEDS: DIVALPROEX SODIUM 250 MG TABLET E.C. (FP) PO SCH (22:28)
[2017-06-05] MEDS: GABAPENTIN 300 MG CAPSULE (FP) PO SCH ×3 (06:21→22:16)
[2017-06-05] MEDS: morphine SO4 SUSTAINED ACTING 15 MG TABLET.SA PO SCH ×3 (06:21→22:17)
[2017-06-05] MEDS: LEVOTHYROXINE NA 50 MCG TABLET (FP) PO SCH (06:22)
[2017-06-05] MEDS: INSULIN SLIDING SCALE (NOVOLOG) 1 VIAL SQ SCH ×3 (06:22→16:35)
--- NOTE | 2017-06-05 08:21 | FALL ---
Fall Exam - Event Witnessed fall: No Location of Fall: Patient Room - Pre-Fall Fall Risk: High Risk Mental Status: Alert Current Medications: Current Medications Generic Name Dose Route Start Last Admin Trade Name Winston PRN Reason Stop Dose Admin Albuterol Sulfate 1 puff 06/01/17 19:15 06/03/17 23:03 Ventolin Hfa Inhaler - IH 1 puff Q4H PRN Administration Apixaban 5 mg 06/01/17 22:00 06/04/17 22:28 Eliquis - PO 5 mg BID BHARAT Administration Atorvastatin Calcium 20 mg 06/01/17 22:00 06/04/17 22:25 Lipitor - PO 20 mg HS BHARAT Administration Budesonide/Formoterol Fumarate 1 puff 06/02/17 10:00 06/04/17 11:41 Symbicort 80/4.5mcg - IH Not Given DAILY BHARAT Divalproex Sodium 750 mg 06/01/17 22:00 06/04/17 22:28 Depakote - PO 750 mg HS BHARAT Administration Docusate Sodium 300 mg 06/01/17 22:00 06/04/17 22:23 Colace - PO 300 mg HS BAHRAT Administration Ferrous Sulfate 325 mg 06/02/17 10:00 06/04/17 09:29 Feosol - PO 325 mg DAILY BHARAT Administration Fluoxetine HCl 40 mg 06/02/17 10:00 06/04/17 09:28 Prozac - PO 40 mg DAILY BHARAT Administration Furosemide 40 mg 06/02/17 10:00 06/04/17 09:29 Lasix - PO 40 mg DAILY BHARAT Administration Gabapentin 300 mg 06/01/17 22:00 06/05/17 06:21 Neurontin - PO 300 mg TID BHARAT Administration Insulin Aspart 1 vial 06/03/17 16:30 06/05/17 06:22 Novolog Vial Sliding Scale - SQ Not Given TIDAC [facility] Protocol Levothyroxine Sodium 50 mcg 06/02/17 07:00 06/05/17 06:22 Synthroid - PO 50 mcg DAILY@0700 BHARAT Administration Metoprolol Succinate 12.5 mg 06/01/17 22:00 06/04/17 22:25 Toprol Xl - PO 12.5 mg BID BHARAT Administration Morphine Sulfate 15 mg 06/01/17 22:00 06/05/17 06:21 Ms Contin - PO 15 mg TID BHARAT Administration Nitroglycerin 0.6 mg 06/01/17 19:02 Nitrostat - SL PRN PRN chest pain Olanzapine 15 mg 06/03/17 22:00 06/04/17 22:24 Zyprexa - PO 15 mg BID BHARAT Administration Pantoprazole Sodium 40 mg 06/02/17 10:00 06/04/17 09:28 Protonix - PO 40 mg DAILY BHARAT Administration Polyethylene Glycol 17 gm 06/02/17 10:00 06/04/17 09:36 Miralax (For Daily Use) - PO Not Given DAILY BHARAT Senna 2 tab 06/01/17 22:00 06/04/17 22:24 Senna - PO 2 tab HS BHARAT Administration - Post-Fall Exam Findings: tenderness on palpation of right hip, no crepitus, no obvious fracture, neurovascularly intact in right leg Vital Signs: Vital Signs Temperature 98.4 F 06/05/17 06:00 Pulse Rate 75 06/05/17 06:00 Respiratory Rate 18 06/05/17 06:00 Blood Pressure 132/62 06/05/17 06:00 O2 Sat by Pulse Oximetry (%) 98 06/04/17 21:00 LOC Post-Fall: Awake, Alert, Oriented Identify factors for HIGH RISK for Head Injury: Pt on anticoagulant
[2017-06-05 11:49] LABS: INR 1.04 (0.82-1.09); PROTHROMBIN TIME (PATIENT) 11.7 SEC (9.98-11.88)
[2017-06-05 11:52] LABS: ACTIVATED PTT 37.8 SECONDS (26.9-34.4)
[2017-06-05] MEDS ORDERED: PT OWN MED DRAWER 7, Y5N ONE ×3 (12:20→13:02)
[2017-06-05] MEDS: FLUoxetine HCL 20 MG CAPSULE (FP) PO SCH (12:30)
[2017-06-05] MEDS: APIXABAN 5 MG TABLET PO SCH ×2 (12:30→22:16)
[2017-06-05] MEDS: FERROUS SO4 325 MG TABLET (FP) PO SCH (12:30)
[2017-06-05] MEDS: PANTOPRAZOLE 40 MG TABLET (FP) PO SCH (12:30)
[2017-06-05] MEDS: FUROSEMIDE 40 MG TABLET (FP) PO SCH (12:33)
[2017-06-05] MEDS: METOPROLOL SUCCINATE 25 MG TAB.SR.24H (FP) PO SCH ×2 (12:33→22:17)
[2017-06-05] MEDS: POLYETHYLENE GLYCOL 3350 119 GM BTL PO SCH (12:34)
[2017-06-05] MEDS: BUDESONIDE/FORMETEROL FUMARATE 80/4.5 mcg INHALER IH SCH (12:34)
[2017-06-05] MEDS: OLANZapine 5 MG TABLET PO SCH ×2 (12:35→22:16)
--- NOTE | 2017-06-05 13:22 | PN ---
Physical Exam: SUBJECTIVE: Patient seen and examined. Rapid response called for pt this am after an unwitnessed fall when she was ambulating to her bathroom with a walker. Pt reports falling on right side which is the site of her recent fracture. She reports severe pain. Shortly afterward, she asked for double portions of lunch. OBJECTIVE: Vital Signs Period Temp Pulse Resp BP Sys/Schultz Pulse Ox Last 24 Hr 97.9 F-98.6 F 67-85 18-18 100-132/61-67 98 GENERAL: middle aged female, lying in bed HEENT: NC, AT NECK: Trachea midline, full range of motion, supple. LUNGS: Breath sounds equal, clear to auscultation bilaterally, no wheezes, no crackles, no accessory muscle use. HEART: Regular rate and rhythm, S1, S2 without murmur, rub or gallop. ABDOMEN: Soft, nontender, nondistended, normoactive bowel sounds, no guarding, no rebound, no hepatosplenomegaly, no masses. EXTREMITIES: minimally tender to palpation over right hip NEUROLOGICAL: Cranial nerves II through XII grossly intact. Normal speech, gait not observed. Laboratory Results - last 24 hr 06/04/17 06/04/17 06/05/17 16:16 22:51 06:20 PT with INR INR PTT (Actin FS) POC Glucometer 72 89 89 06/05/17 06/05/17 11:00 12:08 PT with INR 11.70 INR 1.04 PTT (Actin FS) 37.8 H POC Glucometer 90 Active Medications Generic Name Dose Route Start Last Admin Trade Name Freq PRN Reason Stop Dose Admin Albuterol Sulfate 1 puff 06/01/17 19:15 06/03/17 23:03 Ventolin Hfa Inhaler - IH 1 puff Q4H PRN Administration Apixaban 5 mg 06/01/17 22:00 06/05/17 12:30 Eliquis - PO 5 mg BID BHARAT Administration Atorvastatin Calcium 20 mg 06/01/17 22:00 06/04/17 22:25 Lipitor - PO 20 mg HS BHARAT Administration Budesonide/Formoterol Fumarate 1 puff 06/02/17 10:00 06/05/17 12:34 Symbicort 80/4.5mcg - IH Not Given DAILY BHARAT Divalproex Sodium 750 mg 06/01/17 22:00 06/04/17 22:28 Depakote - PO 750 mg HS BHARAT Administration Docusate Sodium 300 mg 06/01/17 22:00 06/04/17 22:23 Colace - PO 300 mg HS BHARAT Administration Ferrous Sulfate 325 mg 06/02/17 10:00 06/05/17 12:30 Feosol - PO 325 mg DAILY BHARAT Administration Fluoxetine HCl 40 mg 06/02/17 10:00 06/05/17 12:30 Prozac - PO 40 mg DAILY BHARAT Administration Furosemide 40 mg 06/02/17 10:00 06/05/17 12:33 Lasix - PO 40 mg DAILY BHARAT Administration Gabapentin 300 mg 06/01/17 22:00 06/05/17 06:21 Neurontin - PO 300 mg TID BHARAT Administration Insulin Aspart 1 vial 06/03/17 16:30 06/05/17 12:36 Novolog Vial Sliding Scale - SQ Not Given TIDAC [facility] Protocol Levothyroxine Sodium 50 mcg 06/02/17 07:00 06/05/17 06:22 Synthroid - PO 50 mcg DAILY@0700 BHARAT Administration Metoprolol Succinate 12.5 mg 06/01/17 22:00 06/05/17 12:33 Toprol Xl - PO 12.5 mg BID BHARAT Administration Morphine Sulfate 15 mg 06/01/17 22:00 06/05/17 06:21 Ms Contin - PO 15 mg TID BHARAT Administration Nitroglycerin 0.6 mg 06/01/17 19:02 Nitrostat - SL PRN PRN chest pain Olanzapine 15 mg 06/03/17 22:00 06/05/17 12:35 Zyprexa - PO 15 mg BID BHARAT Administration Pantoprazole Sodium 40 mg 06/02/17 10:00 06/05/17 12:30 Protonix - PO 40 mg DAILY BHARAT Administration Polyethylene Glycol 17 gm 06/02/17 10:00 06/05/17 12:34 Miralax (For Daily Use) - PO Not Given DAILY [facility] Senna 2 tab 06/01/17 22:00 06/04/17 22:24 Senna - PO 2 tab HS BHARAT Administration ASSESSMENT/PLAN: 51F w/ hx of CAD s/p NM, CVA/TIA, asthma, schizophrenia, HTN, and other medical problems who presented with difficulty ambulating after a mechanical fall leading to a R pelvic Fx on last admission. # Right acetabular fracture and Right inferior pubic ramus fracture after a mechanical fall -pt fell on right hip this am -hip XR: negative for any acute fx -CT head: negative for any bleeds # Depression/likely has Bipolar -denies S/I at this time -spoke with psych who agrees that pt can be d/c'd home if allowed by PT -Continue bupropion, prozac, depakote, olanzapine # Diabetes Mellitus -ISS -Gabapentin # Asthma -Continue symbicort and ventolin # Hypothyroidism -Continue Synthroid # Anemia -Continue ferrous sulfate # Hyperlipidemia -Continue lipitor # Constipation -Continue colace, miralax, senna # H/O CAD and NM -Cont metoprolol #hx of DVT -continue eliquis #HTN -continue lasix, toprol # H/o CVA # FEN -Not on IV fluids -Electrolytes WNL -Diabetic diet # Prophylaxis -For DVT: cont eliquis 5 BID -For GI: On Protonix #Dispo -likely D/C home if pt is approved by physical therapy. otherwise, [facility]. Case discussed with attending, Dr. Quinn -Deondre Moya MD PGY1 Visit type - Emergency Visit Emergency Visit: Yes ED Registration Date: 06/01/17 Care time: The patient presented to the Emergency Department on the above date and was hospitalized for further evaluation of their emergent condition. - New Patient This patient is new to me today: No - Critical Care Critical Care patient: No
--- NOTE | 2017-06-05 18:57 | PN ---
Teaching Attending Note Name of Resident: Deondre Moya ATTENDING PHYSICIAN STATEMENT I saw and evaluated the patient. I reviewed the resident's note and discussed the case with the resident. I agree with the resident's findings and plan as documented. SUBJECTIVE: OBJECTIVE: Vital Signs Temperature 98.1 F 06/05/17 16:15 Pulse Rate 89 06/05/17 18:00 Respiratory Rate 18 06/05/17 18:00 Blood Pressure 127/64 06/05/17 18:00 O2 Sat by Pulse Oximetry (%) 97 06/05/17 10:00 CBCD WBC 8.7 K/mm3 (4.0-10.0) 06/02/17 08:45 RBC 4.11 M/mm3 (3.60-5.2) 06/02/17 08:45 Hgb 11.6 GM/dL (10.7-15.3) 06/02/17 08:45 Hct 34.3 % (32.4-45.2) 06/02/17 08:45 MCV 83.4 fl (80-96) 06/02/17 08:45 MCHC 33.8 g/dl (32.0-36.0) 06/02/17 08:45 RDW 15.9 % (11.6-15.6) H 06/02/17 08:45 Plt Count 270 K/MM3 (134-434) 06/02/17 08:45 MPV 9.5 fl (7.5-11.1) 06/02/17 08:45 CMP Sodium 141 mmol/L (136-145) 06/04/17 10:05 Potassium 4.2 mmol/L (3.5-5.1) 06/04/17 10:05 Chloride 104 mmol/L (98-107) 06/04/17 10:05 Carbon Dioxide 27 mmol/L (21-32) 06/04/17 10:05 Anion Gap 10 (8-16) 06/04/17 10:05 BUN 22 mg/dL (7-18) H D 06/04/17 10:05 Creatinine 1.1 mg/dL (0.55-1.02) H 06/04/17 10:05 Creat Clearance w eGFR 58.69 (>60) 06/02/17 08:45 Random Glucose 118 mg/dL (74-106) H D 06/04/17 10:05 Calcium 8.6 mg/dL (8.5-10.1) 06/04/17 10:05 Total Bilirubin 0.4 mg/dL (0.2-1.0) 06/02/17 08:45 AST 14 U/L (15-37) L D 06/02/17 08:45 ALT 21 U/L (12-78) 06/02/17 08:45 Alkaline Phosphatase 115 U/L (45-117) 06/02/17 08:45 Total Protein 7.0 g/dl (6.4-8.2) 06/02/17 08:45 Albumin 3.0 g/dl (3.4-5.0) L 06/02/17 08:45 CARDIAC ENZYMES Creatine Kinase 214 IU/L (26-192) H 06/01/17 18:08 Troponin I < 0.02 ng/ml (0.00-0.05) 06/02/17 00:27 Current Medications Generic Name Dose Route Start Last Admin Trade Name Freq PRN Reason Stop Dose Admin Albuterol Sulfate 1 puff 06/01/17 19:15 06/03/17 23:03 Ventolin Hfa Inhaler - IH 1 puff Q4H PRN Administration Apixaban 5 mg 06/01/17 22:00 06/05/17 12:30 Eliquis - PO 5 mg BID BHARAT Administration Atorvastatin Calcium 20 mg 06/01/17 22:00 06/04/17 22:25 Lipitor - PO 20 mg HS BHARAT Administration Budesonide/Formoterol Fumarate 1 puff 06/02/17 10:00 06/05/17 12:34 Symbicort 80/4.5mcg - IH Not Given DAILY BHARAT Divalproex Sodium 750 mg 06/01/17 22:00 06/04/17 22:28 Depakote - PO 750 mg HS BHARAT Administration Docusate Sodium 300 mg 06/01/17 22:00 06/04/17 22:23 Colace - PO 300 mg HS BHARAT Administration Ferrous Sulfate 325 mg 06/02/17 10:00 06/05/17 12:30 Feosol - PO 325 mg DAILY BHARAT Administration Fluoxetine HCl 40 mg 06/02/17 10:00 06/05/17 12:30 Prozac - PO 40 mg DAILY BHARAT Administration Furosemide 40 mg 06/02/17 10:00 06/05/17 12:33 Lasix - PO 40 mg DAILY [facility] Administration Gabapentin 300 mg 06/01/17 22:00 06/05/17 14:17 Neurontin - PO 300 mg TID BHARAT Administration Insulin Aspart 1 vial 06/03/17 16:30 06/05/17 16:35 Novolog Vial Sliding Scale - SQ Not Given TIDAC [facility] Protocol Levothyroxine Sodium 50 mcg 06/02/17 07:00 06/05/17 06:22 Synthroid - PO 50 mcg DAILY@0700 BHARAT Administration Metoprolol Succinate 12.5 mg 06/01/17 22:00 06/05/17 12:33 Toprol Xl - PO 12.5 mg BID [facility] Administration Morphine Sulfate 15 mg 06/01/17 22:00 06/05/17 14:16 Ms Contin - PO 15 mg TID [facility] Administration Nitroglycerin 0.6 mg 06/01/17 19:02 Nitrostat - SL PRN PRN chest pain Olanzapine 15 mg 06/03/17 22:00 06/05/17 12:35 Zyprexa - PO 15 mg BID [facility] Administration Pantoprazole Sodium 40 mg 06/02/17 10:00 06/05/17 12:30 Protonix - PO 40 mg DAILY [facility] Administration Polyethylene Glycol 17 gm 06/02/17 10:00 06/05/17 12:34 Miralax (For Daily Use) - PO Not Given DAILY [facility] Senna 2 tab 06/01/17 22:00 06/04/17 22:24 Senna - PO 2 tab HS [facility] Administration Home Medications Medication Instructions Recorded Albuterol Sulfate Inhaler - 1 puff IH Q4H 03/15/17 [Ventolin HFA Inhaler -] Budesonide/Formeterol Fumarate 1 inh PO DAILY 03/15/17 [SYMBICORT 80/4.5mcg -] Clonazepam [Klonopin] 1 mg PO BID 03/15/17 Morphine *Sr* [MS Contin -] 15 mg PO Q6H 03/15/17 Nitroglycerin [Nitrostat] 0.6 mg SL PRN PRN 03/15/17 Polyethylene Glycol 3350 [Miralax 17 gm PO DAILY 03/15/17 119 gm Btl -] Tizanidine HCl [Zanaflex] 2 mg PO TID PRN 05/13/17 Apixaban [Eliquis] 5 mg PO BID #30 tablet 05/30/17 Benztropine Mesylate [Cogentin -] 1 mg PO DAILY #30 tablet 05/30/17 Bupropion HCl [Wellbutrin Xl] 300 mg PO DAILY #30 tab.er.24h 05/30/17 Divalproex [Depakote -] 750 mg PO HS #30 tablet.ec 05/30/17 Docusate Sodium [Colace -] 300 mg PO HS #30 capsule 05/30/17 Ferrous Sulfate 325 mg PO DAILY #30 tablet 05/30/17 Fluoxetine HCl [Prozac -] 40 mg PO DAILY #30 capsule 05/30/17 Furosemide [Lasix] 40 mg PO DAILY #30 tablet 05/30/17 Gabapentin [Neurontin] 300 mg PO TID #90 tablet 05/30/17 Levothyroxine [Synthroid -] 50 mcg PO DAILY #30 tablet 05/30/17 Metformin HCl [Glucophage -] 500 mg PO BID #30 tablet 05/30/17 Metoprolol Succinate [Toprol XL -] 12.5 mg PO BID #30 tab.sr.24h 05/30/17 Pantoprazole Sodium [Protonix] 40 mg PO DAILY #30 tablet. 05/30/17 Quetiapine Fumarate [Seroquel] 300 tab PO HS #30 tablet 05/30/17 Sennosides [Senna -] 2 tab PO HS #30 tablet 05/30/17 Simvastatin [Zocor -] 40 mg PO HS #30 tablet 05/30/17 ASSESSMENT AND PLAN: 51 y/o lady with h/o CAD, s/p AL, CVA/TIA, asthma, schizophrenia, HTN, and other medical problems who presented after a mechanical fall and was found to have R pelvic Fx # Right acetabular Fx. patient is having difficulty with ambulation , due to pain; PT, walked 35 feet today # Auditory hallucinatins: resolved , as per . [place] NO indication for in patient psych. and he is OK with her going home if she does well with PT . Cont psych meds. suicidal precautions were discontinued # Atypical CP : nl EKG with no ischemic changes. nl trop , cont home BB , not on asa # Recent DVT : cont eliquis
[2017-06-05] MEDS: DOCUSATE SODIUM 100 MG CAPSULE (FP) PO SCH (22:16)
[2017-06-05] MEDS: SENNOSIDES 8.6MG TABLET (FP) PO SCH (22:16)
[2017-06-05] MEDS: DIVALPROEX SODIUM 250 MG TABLET E.C. (FP) PO SCH (22:16)
[2017-06-05] MEDS: ATORVASTATIN CA 20 MG TABLET (FP) PO SCH (22:17)
[2017-06-06] MEDS: GABAPENTIN 300 MG CAPSULE (FP) PO SCH ×3 (06:29→22:07)
[2017-06-06] MEDS: morphine SO4 SUSTAINED ACTING 15 MG TABLET.SA PO SCH ×3 (06:29→22:08)
[2017-06-06] MEDS: LEVOTHYROXINE NA 50 MCG TABLET (FP) PO SCH (06:29)
[2017-06-06] MEDS: INSULIN SLIDING SCALE (NOVOLOG) 1 VIAL SQ SCH ×3 (06:32→17:12)
[2017-06-06] MEDS: METOPROLOL SUCCINATE 25 MG TAB.SR.24H (FP) PO SCH ×2 (09:00→22:07)
[2017-06-06] MEDS: FUROSEMIDE 40 MG TABLET (FP) PO SCH (09:00)
[2017-06-06] MEDS: FLUoxetine HCL 20 MG CAPSULE (FP) PO SCH (09:00)
[2017-06-06] MEDS: FERROUS SO4 325 MG TABLET (FP) PO SCH (09:00)
[2017-06-06] MEDS: PANTOPRAZOLE 40 MG TABLET (FP) PO SCH (09:00)
[2017-06-06] MEDS: OLANZapine 5 MG TABLET PO SCH ×2 (09:03→22:26)
[2017-06-06] MEDS: POLYETHYLENE GLYCOL 3350 119 GM BTL PO SCH (09:07)
[2017-06-06] MEDS: BUDESONIDE/FORMETEROL FUMARATE 80/4.5 mcg INHALER IH SCH (09:07)
[2017-06-06] MEDS: ALBUTEROL SO4 18 GM HFA INHALER IH PRN ×2 (09:14→18:44)
--- NOTE | 2017-06-06 10:34 | PN ---
Physical Exam: SUBJECTIVE: Patient seen and examined Rapid response called last night for pt after pt starting slurring her speech and called the nurse with the call napoles. When the nurse came on, the pt was unresponsive. Vital signs were all within normal limits, BGM was normal. Pt became responsive after several minutes. Was deemed to be malingering behavior given pt's extensive manipulative behavioral history in addition to the presentation and exam. This am, pt complaining of usual pains in her legs. OBJECTIVE: Vital Signs Period Temp Pulse Resp BP Sys/Schultz Pulse Ox Last 24 Hr 97.5 F-98.6 F 65-89 18-18 97-127/59-67 97 GENERAL: middle aged female, lying in bed, AAOx3 HEENT: NC, AT NECK: Trachea midline, full range of motion, supple. LUNGS: Breath sounds equal, clear to auscultation bilaterally, no wheezes, no crackles, no accessory muscle use. HEART: Regular rate and rhythm, S1, S2 without murmur, rub or gallop. ABDOMEN: obese, soft, nontender, nondistended, normoactive bowel sounds, no guarding, no rebound, no hepatosplenomegaly, no masses. EXTREMITIES: minimally tender to palpation over right hip NEUROLOGICAL: Cranial nerves II through XII grossly intact. Normal speech, gait not observed. Laboratory Results - last 24 hr 06/05/17 06/05/17 06/05/17 11:00 12:08 16:10 PT with INR 11.70 INR 1.04 PTT (Actin FS) 37.8 H POC Glucometer 90 82 06/05/17 06/05/17 06/06/17 17:54 22:24 06:31 PT with INR INR PTT (Actin FS) POC Glucometer 183 152 85 Active Medications Generic Name Dose Route Start Last Admin Trade Name Freq PRN Reason Stop Dose Admin Albuterol Sulfate 1 puff 06/01/17 19:15 06/06/17 09:14 Ventolin Hfa Inhaler - IH 1 puff Q4H PRN Administration Apixaban 5 mg 06/01/17 22:00 06/05/17 22:16 Eliquis - PO 5 mg BID BHARAT Administration Atorvastatin Calcium 20 mg 06/01/17 22:00 06/05/17 22:17 Lipitor - PO 20 mg HS BHARAT Administration Budesonide/Formoterol Fumarate 1 puff 06/02/17 10:00 06/06/17 09:07 Symbicort 80/4.5mcg - IH Not Given DAILY BHARAT Divalproex Sodium 750 mg 06/01/17 22:00 06/05/17 22:16 Depakote - PO 750 mg HS BHARAT Administration Docusate Sodium 300 mg 06/01/17 22:00 06/05/17 22:16 Colace - PO 300 mg HS BHARAT Administration Ferrous Sulfate 325 mg 06/02/17 10:00 06/06/17 09:00 Feosol - PO 325 mg DAILY BHARAT Administration Fluoxetine HCl 40 mg 06/02/17 10:00 06/06/17 09:00 Prozac - PO 40 mg DAILY BHARAT Administration Furosemide 40 mg 06/02/17 10:00 06/06/17 09:00 Lasix - PO 40 mg DAILY BHARAT Administration Gabapentin 300 mg 06/01/17 22:00 06/06/17 06:29 Neurontin - PO 300 mg TID [facility] Administration Insulin Aspart 1 vial 06/03/17 16:30 06/06/17 06:32 Novolog Vial Sliding Scale - SQ Not Given TIDAC [facility] Protocol Levothyroxine Sodium 50 mcg 06/02/17 07:00 06/06/17 06:29 Synthroid - PO 50 mcg DAILY@0700 [facility] Administration Metoprolol Succinate 12.5 mg 06/01/17 22:00 06/06/17 09:00 Toprol Xl - PO 12.5 mg BID BHARAT Administration Morphine Sulfate 15 mg 06/01/17 22:00 06/06/17 06:29 Ms Contin - PO 15 mg TID [facility] Administration Nitroglycerin 0.6 mg 06/01/17 19:02 Nitrostat - SL PRN PRN chest pain Olanzapine 15 mg 06/03/17 22:00 06/06/17 09:03 Zyprexa - PO 15 mg BID BHARAT Administration Pantoprazole Sodium 40 mg 06/02/17 10:00 06/06/17 09:00 Protonix - PO 40 mg DAILY [facility] Administration Polyethylene Glycol 17 gm 06/02/17 10:00 06/06/17 09:07 Miralax (For Daily Use) - PO Not Given DAILY BHARAT Senna 2 tab 06/01/17 22:00 06/05/17 22:16 Senna - PO 2 tab HS BHARAT Administration ASSESSMENT/PLAN: 51F w/ hx of CAD s/p AL, CVA/TIA, asthma, schizophrenia, HTN, and other medical problems who presented with difficulty ambulating after a mechanical fall leading to a R pelvic Fx on last admission. # Right acetabular fracture and Right inferior pubic ramus fracture after a mechanical fall -pain control and physical therapy # Depression/likely has Bipolar -denies S/I at this time -spoke with psych who agrees that pt can be d/c'd home if allowed by PT -Continue bupropion, prozac, depakote, olanzapine # Diabetes Mellitus -ISS -Gabapentin # Asthma -Continue symbicort and ventolin # Hypothyroidism -Continue Synthroid # Anemia -Continue ferrous sulfate # Hyperlipidemia -Continue lipitor # Constipation -Continue colace, miralax, senna # H/O CAD and AL -Cont metoprolol #hx of DVT -continue eliquis #HTN -continue lasix, toprol # H/o CVA # FEN -Not on IV fluids -Electrolytes WNL -Diabetic diet # Prophylaxis -For DVT: cont eliquis 5 BID -For GI: On Protonix #Dispo -likely D/C home if pt is approved by physical therapy. otherwise, [place]. Case discussed with attending, Dr. Quinn -Deondre Moya MD PGY1 Visit type - Emergency Visit Emergency Visit: Yes ED Registration Date: 06/01/17 Care time: The patient presented to the Emergency Department on the above date and was hospitalized for further evaluation of their emergent condition. - New Patient This patient is new to me today: No - Critical Care Critical Care patient: No
[2017-06-06] MEDS: APIXABAN 5 MG TABLET PO SCH ×2 (12:11→22:07)
--- NOTE | 2017-06-06 20:08 | PN ---
Teaching Attending Note Name of Resident: Deondre Moya ATTENDING PHYSICIAN STATEMENT I saw and evaluated the patient. I reviewed the resident's note and discussed the case with the resident. I agree with the resident's findings and plan as documented. SUBJECTIVE: OBJECTIVE: Vital Signs Temp 99.1 F 06/06/17 18:00 Pulse 92 H 06/06/17 18:00 Resp 18 06/06/17 18:00 BP 106/72 06/06/17 18:00 Pulse Ox 97 06/06/17 09:00 CBCD WBC 8.7 K/mm3 (4.0-10.0) 06/02/17 08:45 RBC 4.11 M/mm3 (3.60-5.2) 06/02/17 08:45 Hgb 11.6 GM/dL (10.7-15.3) 06/02/17 08:45 Hct 34.3 % (32.4-45.2) 06/02/17 08:45 MCV 83.4 fl (80-96) 06/02/17 08:45 MCHC 33.8 g/dl (32.0-36.0) 06/02/17 08:45 RDW 15.9 % (11.6-15.6) H 06/02/17 08:45 Plt Count 270 K/MM3 (134-434) 06/02/17 08:45 MPV 9.5 fl (7.5-11.1) 06/02/17 08:45 CMP Sodium 141 mmol/L (136-145) 06/04/17 10:05 Potassium 4.2 mmol/L (3.5-5.1) 06/04/17 10:05 Chloride 104 mmol/L (98-107) 06/04/17 10:05 Carbon Dioxide 27 mmol/L (21-32) 06/04/17 10:05 Anion Gap 10 (8-16) 06/04/17 10:05 BUN 22 mg/dL (7-18) H D 06/04/17 10:05 Creatinine 1.1 mg/dL (0.55-1.02) H 06/04/17 10:05 Creat Clearance w eGFR 58.69 (>60) 06/02/17 08:45 Random Glucose 118 mg/dL (74-106) H D 06/04/17 10:05 Calcium 8.6 mg/dL (8.5-10.1) 06/04/17 10:05 Total Bilirubin 0.4 mg/dL (0.2-1.0) 06/02/17 08:45 AST 14 U/L (15-37) L D 06/02/17 08:45 ALT 21 U/L (12-78) 06/02/17 08:45 Alkaline Phosphatase 115 U/L (45-117) 06/02/17 08:45 Total Protein 7.0 g/dl (6.4-8.2) 06/02/17 08:45 Albumin 3.0 g/dl (3.4-5.0) L 06/02/17 08:45 CARDIAC ENZYMES Creatine Kinase 214 IU/L (26-192) H 06/01/17 18:08 Troponin I < 0.02 ng/ml (0.00-0.05) 06/02/17 00:27 Current Medications Generic Name Dose Route Start Last Admin Trade Name Freq PRN Reason Stop Dose Admin Albuterol Sulfate 1 puff 06/01/17 19:15 06/06/17 18:44 Ventolin Hfa Inhaler - IH 1 puff Q4H PRN Administration Apixaban 5 mg 06/01/17 22:00 06/06/17 12:11 Eliquis - PO 5 mg BID [facility] Administration Atorvastatin Calcium 20 mg 06/01/17 22:00 06/05/17 22:17 Lipitor - PO 20 mg HS [facility] Administration Budesonide/Formoterol Fumarate 1 puff 06/02/17 10:00 06/06/17 09:07 Symbicort 80/4.5mcg - IH Not Given DAILY [facility] Divalproex Sodium 750 mg 06/01/17 22:00 06/05/17 22:16 Depakote - PO 750 mg HS [facility] Administration Docusate Sodium 300 mg 06/01/17 22:00 06/05/17 22:16 Colace - PO 300 mg HS [facility] Administration Ferrous Sulfate 325 mg 06/02/17 10:00 06/06/17 09:00 Feosol - PO 325 mg DAILY [facility] Administration Fluoxetine HCl 40 mg 06/02/17 10:00 06/06/17 09:00 Prozac - PO 40 mg DAILY [facility] Administration Furosemide 40 mg 06/02/17 10:00 06/06/17 09:00 Lasix - PO 40 mg DAILY [facility] Administration Gabapentin 300 mg 06/01/17 22:00 06/06/17 13:38 Neurontin - PO 300 mg TID [facility] Administration Insulin Aspart 1 vial 06/03/17 16:30 06/06/17 17:12 Novolog Vial Sliding Scale - SQ Not Given TIDAC [facility] Protocol Levothyroxine Sodium 50 mcg 06/02/17 07:00 06/06/17 06:29 Synthroid - PO 50 mcg DAILY@0700 [facility] Administration Metoprolol Succinate 12.5 mg 06/01/17 22:00 06/06/17 09:00 Toprol Xl - PO 12.5 mg BID [facility] Administration Morphine Sulfate 15 mg 06/01/17 22:00 06/06/17 13:38 Ms Contin - PO 15 mg TID [facility] Administration Nitroglycerin 0.6 mg 06/01/17 19:02 Nitrostat - SL PRN PRN chest pain Olanzapine 15 mg 06/03/17 22:00 06/06/17 09:03 Zyprexa - PO 15 mg BID [facility] Administration Pantoprazole Sodium 40 mg 06/02/17 10:00 06/06/17 09:00 Protonix - PO 40 mg DAILY [facility] Administration Polyethylene Glycol 17 gm 06/02/17 10:00 06/06/17 09:07 Miralax (For Daily Use) - PO Not Given DAILY [facility] Senna 2 tab 06/01/17 22:00 06/05/17 22:16 Senna - PO 2 tab HS [facility] Administration Home Medications Medication Instructions Recorded Albuterol Sulfate Inhaler - 1 puff IH Q4H 03/15/17 [Ventolin HFA Inhaler -] Budesonide/Formeterol Fumarate 1 inh PO DAILY 03/15/17 [SYMBICORT 80/4.5mcg -] Clonazepam [Klonopin] 1 mg PO BID 03/15/17 Morphine *Sr* [MS Contin -] 15 mg PO Q6H 03/15/17 Nitroglycerin [Nitrostat] 0.6 mg SL PRN PRN 03/15/17 Polyethylene Glycol 3350 [Miralax 17 gm PO DAILY 03/15/17 119 gm Btl -] Tizanidine HCl [Zanaflex] 2 mg PO TID PRN 05/13/17 Apixaban [Eliquis] 5 mg PO BID #30 tablet 05/30/17 Benztropine Mesylate [Cogentin -] 1 mg PO DAILY #30 tablet 05/30/17 Bupropion HCl [Wellbutrin Xl] 300 mg PO DAILY #30 tab.er.24h 05/30/17 Divalproex [Depakote -] 750 mg PO HS #30 tablet.ec 05/30/17 Docusate Sodium [Colace -] 300 mg PO HS #30 capsule 05/30/17 Ferrous Sulfate 325 mg PO DAILY #30 tablet 05/30/17 Fluoxetine HCl [Prozac -] 40 mg PO DAILY #30 capsule 05/30/17 Furosemide [Lasix] 40 mg PO DAILY #30 tablet 05/30/17 Gabapentin [Neurontin] 300 mg PO TID #90 tablet 05/30/17 Levothyroxine [Synthroid -] 50 mcg PO DAILY #30 tablet 05/30/17 Metformin HCl [Glucophage -] 500 mg PO BID #30 tablet 05/30/17 Metoprolol Succinate [Toprol XL -] 12.5 mg PO BID #30 tab.sr.24h 05/30/17 Pantoprazole Sodium [Protonix] 40 mg PO DAILY #30 tablet. 05/30/17 Quetiapine Fumarate [Seroquel] 300 tab PO HS #30 tablet 05/30/17 Sennosides [Senna -] 2 tab PO HS #30 tablet 05/30/17 Simvastatin [Zocor -] 40 mg PO HS #30 tablet 05/30/17 ASSESSMENT AND PLAN: ASSESSMENT AND PLAN: 51 y/o lady with h/o CAD, s/p CO, CVA/TIA, asthma, schizophrenia, HTN, and other medical problems who presented after a mechanical fall and was found to have R pelvic Fx 51 y/o lady with h/o CAD, s/p CO, CVA/TIA, asthma, schizophrenia, HTN, and other medical problems who presented after a mechanical fall and was found to have R pelvic Fx # Right acetabular Fx. patient is having difficulty with ambulation continue PT # Auditory hallucinatins: resolved , as per . Reeceuro NO indication for in patient psych. and he is OK with her going home if she does well with PT . Cont psych meds. suicidal precautions were discontinued # Atypical CP : nl EKG with no ischemic changes. nl trop , cont home BB , not on asa # Recent DVT : cont eliquis waiting for snf placement
[2017-06-06] MEDS: DOCUSATE SODIUM 100 MG CAPSULE (FP) PO SCH (22:06)
[2017-06-06] MEDS: ATORVASTATIN CA 20 MG TABLET (FP) PO SCH (22:06)
[2017-06-06] MEDS: SENNOSIDES 8.6MG TABLET (FP) PO SCH (22:06)
[2017-06-06] MEDS: DIVALPROEX SODIUM 250 MG TABLET E.C. (FP) PO SCH (22:08)
[2017-06-07] MEDS: LEVOTHYROXINE NA 50 MCG TABLET (FP) PO SCH (06:13)
[2017-06-07] MEDS: INSULIN SLIDING SCALE (NOVOLOG) 1 VIAL SQ SCH ×3 (06:13→17:27)
[2017-06-07] MEDS: morphine SO4 SUSTAINED ACTING 15 MG TABLET.SA PO SCH ×3 (06:13→21:38)
[2017-06-07] MEDS: GABAPENTIN 300 MG CAPSULE (FP) PO SCH ×3 (06:13→21:37)
--- NOTE | 2017-06-07 09:53 | CONS ---
PHYSICAL MEDICINE REHABILITATION CONSULTATION DATE OF ADMISSION: 06/01/2017 DATE OF EVALUATION: 06/07/2017 HISTORY OF PRESENT ILLNESS: The patient is a 51-year-old woman with extensive past medical history including bipolar disorder, coronary artery disease, VA, possible schizophrenia, diabetes, who was admitted on June 01 with difficulty ambulating. Patient may have had trauma and complained of right hip pain. On admission, patient underwent vascular study, which showed no evidence of deep venous thrombosis, but there was a Bakers cyst identified. Subsequent workup included CT of the head, which demonstrated no acute intracranial pathology, no skull fracture. X-rays of the hip and pelvis revealed subacute fractures involving the right acetabulum. Patient was cleared for therapy, is ambulating short distances with a step to gait using a walker. Premorbidly, she states she was using a straight cane, and she is amenable to going to rehabilitation. Admitting CBC showed slight elevation WBC 10.6, hemoglobin 12.1, platelet count 284. Repeat on June 02 showed normalization of WBC to 8.7, stable hemoglobin 11.6, and platelet count 270. Chemistry was last done on June 04, and showed elevated BUN 22 and creatinine 1.1, borderline. Admitting chemistry did show slightly low albumin of 3.2. The patient does have a good appetite currently. REVIEW OF PAST MEDICAL AND SURGICAL HISTORY: Per the medical record, coronary artery disease, VA, CVA, asthma, COPD, bipolar disorder, schizophrenia, hypertension, hyperlipidemia, hypothyroidism, diabetes, obesity, migraine headaches, post-traumatic stress disorder, hysterectomy, laminectomy. SOCIAL HISTORY: Patient is a tobacco-user, at least a [id number] history, and states she stopped in mid May of 2017. No recent alcohol. History of cocaine and marijuana. Premorbidly, she lived in an adult home. She states she used a straight cane to ambulate, but there is an elevator. CURRENT FUNCTION: She was seen by physical therapy last on June 06, ambulated 20 feet with a rolling walker, antalgic gait, favoring the right lower extremity. Step to and reduced stride was noted, but at a close contact guard level. She required contact guard for transfers. REVIEW OF SYSTEMS: She does get dizzy very easily, but no current lightheadedness or dizziness. No headache currently. She does get headaches at times. No nausea, vomiting, difficulty swallowing, difficulty chewing. No blurry vision, double vision that is new. No current chest pain, shortness of breath, fever, or chills. She did not move her bowels in the last few days. However, she states this is fairly normal for her. No urinary complaints such as dysuria, polyuria. She complains of right hip pain, but no other areas of discomfort. No neck or back pain. No joint arthralgias. No numbness or tingling in the upper or lower extremities. She does get some right calf discomfort in the muscle at times and may have a history of a DVT in the right lower extremity. PHYSICAL EXAMINATION: General: On examination, overweight woman seen lying in bed. She is awake and cooperative, in no acute distress. HEENT: She is normocephalic and atraumatic. Her extraocular muscles appear intact. She has no obvious facial weakness, poor dentition, dry mucous membranes. Neck: Supple. Extremities: No pitting edema. She is tender throughout her right calf, but no left calf tenderness. Skin: Without any rash or breakdown. Neuromuscular: She is awake, alert, and cooperative. No obvious cranial nerve deficits. Good strength range in the upper extremities without any arthritic change. In the lower extremities, she has weakness in her right lower extremity especially proximally, only 1-2 out of 5, knee extensors 2 out of 5, dorsiflexion and plantar flexion at least 3+ out 5. Left lower extremity has at least 4 out of 5 hip girdle strength, good knee flexion and extension, dorsiflexion, plantar flexion, normal sensation to light touch. No arthritic change in the upper or lower extremities. Reflexes symmetric. Toes downgoing. Unable to assess her gait, no assistive device available. OVERALL IMPRESSION: 1. Deficits mobility, activities of daily living. 2. Subacute right pelvic fracture. 3. Extensive past medical history including possible deep venous thrombosis in the right lower extremity, currently on Eliquis for anticoagulation. 4. Decreased albumin. 5. Increased risk for constipation due to immobility. 6. History of coronary artery disease, myocardial infarction, hypertension, hyperlipidemia. 7. History of diabetes. 8. History of drug use. 9. Peptic ulcer disease. 10. Chronic obstructive pulmonary disease. 11. Psychiatric disorders including bipolar and schizophrenia mention. PLANS AND SUGGESTIONS: 1. Will continue physical therapy in the hospital including bed mobility transfers, gait training as tolerated, strength and conditioning of the lower extremities particularly the right proximal lower extremity. 2. Out of bed to chair with assistance. 3. Patient is on Eliquis. No further DVT prophylaxis needed. 4. Skin precautions. Avoid heel sacral pressure. Monitor for erythema breakdown. 5. Monitor for constipation. Patient is on MiraLAX and Senna. Continue bowel regimen. 6. Patient is amenable to going to short-term rehabilitation versus back to the [facility] depending on her length of hospitalization as well as her progress in therapy. Thank you for this consultation. OLIMPIA HOOD M.D. [id number]
[2017-06-07] MEDS: METOPROLOL SUCCINATE 25 MG TAB.SR.24H (FP) PO SCH ×3 (10:38→21:37)
[2017-06-07] MEDS: FERROUS SO4 325 MG TABLET (FP) PO SCH (10:39)
[2017-06-07] MEDS: FUROSEMIDE 40 MG TABLET (FP) PO SCH (10:39)
[2017-06-07] MEDS: FLUoxetine HCL 20 MG CAPSULE (FP) PO SCH (10:39)
[2017-06-07] MEDS: OLANZapine 5 MG TABLET PO SCH ×2 (10:39→21:37)
[2017-06-07] MEDS: PANTOPRAZOLE 40 MG TABLET (FP) PO SCH (10:39)
[2017-06-07] MEDS: APIXABAN 5 MG TABLET PO SCH ×2 (10:39→21:39)
[2017-06-07] MEDS: POLYETHYLENE GLYCOL 3350 119 GM BTL PO SCH (10:40)
[2017-06-07] MEDS: BUDESONIDE/FORMETEROL FUMARATE 80/4.5 mcg INHALER IH SCH (10:41)
--- NOTE | 2017-06-07 11:44 | PN ---
Physical Exam: SUBJECTIVE: Patient seen and examined No acute events overnight. Pt endorses right knee pain. She denies all other subjective complaints. OBJECTIVE: Vital Signs Period Temp Pulse Resp BP Sys/Schultz Pulse Ox Last 24 Hr 97.9 F-99.1 F 65-92 18-20 100-118/57-72 97 GENERAL: middle aged female, lying in bed, AAOx3 HEENT: NC, AT NECK: Trachea midline, full range of motion, supple. LUNGS: Breath sounds equal, clear to auscultation bilaterally, no wheezes, no crackles, no accessory muscle use. HEART: Regular rate and rhythm, S1, S2 without murmur, rub or gallop. ABDOMEN: obese, soft, nontender, nondistended, normoactive bowel sounds, no guarding, no rebound, no hepatosplenomegaly, no masses. EXTREMITIES: minimally tender to palpation over right hip and right knee NEUROLOGICAL: Cranial nerves II through XII grossly intact. Normal speech, gait not observed. Laboratory Results - last 24 hr 06/06/17 06/06/17 06/06/17 11:37 17:22 22:18 POC Glucometer 167 125 106 06/07/17 06:12 POC Glucometer 99 Active Medications Generic Name Dose Route Start Last Admin Trade Name Freq PRN Reason Stop Dose Admin Albuterol Sulfate 1 puff 06/01/17 19:15 06/06/17 18:44 Ventolin Hfa Inhaler - IH 1 puff Q4H PRN Administration Apixaban 5 mg 06/01/17 22:00 06/07/17 10:39 Eliquis - PO 5 mg BID [facility] Administration Atorvastatin Calcium 20 mg 06/01/17 22:00 06/06/17 22:06 Lipitor - PO 20 mg HS [facility] Administration Budesonide/Formoterol Fumarate 1 puff 06/02/17 10:00 06/07/17 10:41 Symbicort 80/4.5mcg - IH Not Given DAILY [facility] Divalproex Sodium 750 mg 06/01/17 22:00 06/06/17 22:08 Depakote - PO 750 mg HS [facility] Administration Docusate Sodium 300 mg 06/01/17 22:00 06/06/17 22:06 Colace - PO 300 mg HS [facility] Administration Ferrous Sulfate 325 mg 06/02/17 10:00 06/07/17 10:39 Feosol - PO 325 mg DAILY [facility] Administration Fluoxetine HCl 40 mg 06/02/17 10:00 06/07/17 10:39 Prozac - PO 40 mg DAILY [facility] Administration Furosemide 40 mg 06/02/17 10:00 06/07/17 10:39 Lasix - PO 40 mg DAILY [facility] Administration Gabapentin 300 mg 06/01/17 22:00 06/07/17 06:13 Neurontin - PO 300 mg TID [facility] Administration Insulin Aspart 1 vial 06/03/17 16:30 06/07/17 11:39 Novolog Vial Sliding Scale - SQ Not Given [facility]AC [facility] Protocol Levothyroxine Sodium 50 mcg 06/02/17 07:00 06/07/17 06:13 Synthroid - PO 50 mcg DAILY@0700 [facility] Administration Metoprolol Succinate 12.5 mg 06/01/17 22:00 06/07/17 10:43 Toprol Xl - PO Not Given BID [facility] Morphine Sulfate 15 mg 06/01/17 22:00 06/07/17 06:13 Ms Contin - PO 15 mg TID [facility] Administration Nitroglycerin 0.6 mg 06/01/17 19:02 Nitrostat - SL PRN PRN chest pain Olanzapine 15 mg 06/03/17 22:00 06/07/17 10:39 Zyprexa - PO 15 mg BID [facility] Administration Pantoprazole Sodium 40 mg 06/02/17 10:00 06/07/17 10:39 Protonix - PO 40 mg DAILY [facility] Administration Polyethylene Glycol 17 gm 06/02/17 10:00 06/07/17 10:40 Miralax (For Daily Use) - PO Not Given DAILY [facility] Senna 2 tab 06/01/17 22:00 06/06/17 22:06 Senna - PO 2 tab HS [facility] Administration ASSESSMENT/PLAN: 51F w/ hx of CAD s/p ME, CVA/TIA, asthma, schizophrenia, HTN, and other medical problems who presented with difficulty ambulating after a mechanical fall leading to a R pelvic Fx on last admission. # Right acetabular fracture and Right inferior pubic ramus fracture after a mechanical fall -pain control and physical therapy -physiatry consulted, recs appreciated # Depression/likely has Bipolar -denies S/I at this time -spoke with psych who agrees that pt can be d/c'd home if allowed by PT -Continue bupropion, prozac, depakote, olanzapine # Diabetes Mellitus -ISS -Gabapentin # Asthma -Continue symbicort and ventolin # Hypothyroidism -Continue Synthroid # Anemia -Continue ferrous sulfate # Hyperlipidemia -Continue lipitor # Constipation -Continue colace, miralax, senna # H/O CAD and ME -Cont metoprolol #hx of DVT -continue eliquis #HTN -continue lasix, toprol # H/o CVA # FEN -Not on IV fluids -Electrolytes WNL -Diabetic diet # Prophylaxis -For DVT: cont eliquis 5 BID -For GI: On Protonix #Dispo -likely D/C home if pt is approved by physical therapy. otherwise, [place]. Case discussed with attending, Dr. Cheyenne Moya MD PGY1 Visit type - Emergency Visit Emergency Visit: Yes ED Registration Date: 06/01/17 Care time: The patient presented to the Emergency Department on the above date and was hospitalized for further evaluation of their emergent condition. - New Patient This patient is new to me today: No - Critical Care Critical Care patient: No
--- NOTE | 2017-06-07 14:32 | DS ---
Physical Exam: SUBJECTIVE: Patient seen and examined No acute events overnight. Pt endorses right knee pain. She denies all other subjective complaints. OBJECTIVE: Vital Signs Period Temp Pulse Resp BP Sys/Schultz Pulse Ox Last 24 Hr 97.9 F-99.1 F 65-92 18-20 100-118/57-72 97 PHYSICAL EXAM GENERAL: middle aged female, lying in bed, AAOx3 HEENT: NC, AT NECK: Trachea midline, full range of motion, supple. LUNGS: Breath sounds equal, clear to auscultation bilaterally, no wheezes, no crackles, no accessory muscle use. HEART: Regular rate and rhythm, S1, S2 without murmur, rub or gallop. ABDOMEN: obese, soft, nontender, nondistended, normoactive bowel sounds, no guarding, no rebound, no hepatosplenomegaly, no masses. EXTREMITIES: minimally tender to palpation over right hip and right knee NEUROLOGICAL: Cranial nerves II through XII grossly intact. Normal speech, gait not observed. LABS Laboratory Results - last 24 hr 06/06/17 06/06/17 06/07/17 17:22 22:18 06:12 POC Glucometer 125 106 99 06/07/17 11:38 POC Glucometer 92 HOSPITAL COURSE: Date of Admission:06/01/17 Date of Discharge: 06/07/17 51F w/ hx of CAD s/p [place], CVA/TIA, asthma, schizophrenia, HTN, and other medical problems who presented with difficulty ambulating and chest pain after she suffered a mechanical fall leading to a R pelvic Fx on last admission. Her difficulty ambulating was treated with pain control and physical therapy, and physiatry was consulted as well. Her chest pain was worked up and was negative, and it resolved on its own over her hospitalization. Pt became acutely suicidal for a day requiring a 1:1 for observation. Pt was seen by psychiatry who stated that pt exhibits manipulative behavior and was not acutely suicidal. Today, pt has normal vitals, a benign physical exam, and is stable for discharge to a SNF. Pt instructed to follow up with her PCP, orthopedic surgery , and psychiatry. -Deondre Moya MD PGY1 Minutes to complete discharge: 36 <Deondre Moya - Last Filed: 06/07/17 14:32> Physical Exam: SUBJECTIVE: Patient seen and examined Vital Signs Temperature 97.8 F 06/07/17 18:08 Pulse Rate 86 06/07/17 18:08 Respiratory Rate 18 06/07/17 18:08 Blood Pressure 116/76 06/07/17 18:08 O2 Sat by Pulse Oximetry (%) 96 06/07/17 09:00 CBCD WBC 8.7 K/mm3 (4.0-10.0) 06/02/17 08:45 RBC 4.11 M/mm3 (3.60-5.2) 06/02/17 08:45 Hgb 11.6 GM/dL (10.7-15.3) 06/02/17 08:45 Hct 34.3 % (32.4-45.2) 06/02/17 08:45 MCV 83.4 fl (80-96) 06/02/17 08:45 MCHC 33.8 g/dl (32.0-36.0) 06/02/17 08:45 RDW 15.9 % (11.6-15.6) H 06/02/17 08:45 Plt Count 270 K/MM3 (134-434) 06/02/17 08:45 MPV 9.5 fl (7.5-11.1) 06/02/17 08:45 CMP Sodium 141 mmol/L (136-145) 06/04/17 10:05 Potassium 4.2 mmol/L (3.5-5.1) 06/04/17 10:05 Chloride 104 mmol/L (98-107) 06/04/17 10:05 Carbon Dioxide 27 mmol/L (21-32) 06/04/17 10:05 Anion Gap 10 (8-16) 06/04/17 10:05 BUN 22 mg/dL (7-18) H D 06/04/17 10:05 Creatinine 1.1 mg/dL (0.55-1.02) H 06/04/17 10:05 Creat Clearance w eGFR 58.69 (>60) 06/02/17 08:45 Random Glucose 118 mg/dL (74-106) H D 06/04/17 10:05 Calcium 8.6 mg/dL (8.5-10.1) 06/04/17 10:05 Total Bilirubin 0.4 mg/dL (0.2-1.0) 06/02/17 08:45 AST 14 U/L (15-37) L D 06/02/17 08:45 ALT 21 U/L (12-78) 06/02/17 08:45 Alkaline Phosphatase 115 U/L (45-117) 06/02/17 08:45 Total Protein 7.0 g/dl (6.4-8.2) 06/02/17 08:45 Albumin 3.0 g/dl (3.4-5.0) L 06/02/17 08:45 CARDIAC ENZYMES Creatine Kinase 214 IU/L (26-192) H 06/01/17 18:08 Troponin I < 0.02 ng/ml (0.00-0.05) 06/02/17 00:27 Current Medications Generic Name Dose Route Start Last Admin Trade Name Freq PRN Reason Stop Dose Admin Albuterol Sulfate 1 puff 06/01/17 19:15 06/06/17 18:44 Ventolin Hfa Inhaler - IH 1 puff Q4H PRN Administration Apixaban 5 mg 06/01/17 22:00 06/07/17 10:39 Eliquis - PO 5 mg BID [facility] Administration Atorvastatin Calcium 20 mg 06/01/17 22:00 06/06/17 22:06 Lipitor - PO 20 mg HS [facility] Administration Budesonide/Formoterol Fumarate 1 puff 06/02/17 10:00 06/07/17 10:41 Symbicort 80/4.5mcg - IH Not Given DAILY [facility] Divalproex Sodium 750 mg 06/01/17 22:00 06/06/17 22:08 Depakote - PO 750 mg HS [facility] Administration Docusate Sodium 300 mg 06/01/17 22:00 06/06/17 22:06 Colace - PO 300 mg HS [facility] Administration Ferrous Sulfate 325 mg 06/02/17 10:00 06/07/17 10:39 Feosol - PO 325 mg DAILY [facility] Administration Fluoxetine HCl 40 mg 06/02/17 10:00 06/07/17 10:39 Prozac - PO 40 mg DAILY [facility] Administration Furosemide 40 mg 06/02/17 10:00 06/07/17 10:39 Lasix - PO 40 mg DAILY [facility] Administration Gabapentin 300 mg 06/01/17 22:00 06/07/17 15:03 Neurontin - PO 300 mg TID [facility] Administration Insulin Aspart 1 vial 06/03/17 16:30 01/05/18 17:27 Novolog Vial Sliding Scale - SQ Not Given TIDAC [facility] Protocol Levothyroxine Sodium 50 mcg 06/02/17 07:00 06/07/17 06:13 Synthroid - PO 50 mcg DAILY@0700 [facility] Administration Metoprolol Succinate 12.5 mg 06/01/17 22:00 06/07/17 10:43 Toprol Xl - PO Not Given BID [facility] Morphine Sulfate 15 mg 06/01/17 22:00 06/07/17 15:03 Ms Contin - PO 15 mg TID [facility] Administration Nitroglycerin 0.6 mg 06/01/17 19:02 Nitrostat - SL PRN PRN chest pain Olanzapine 15 mg 06/03/17 22:00 06/07/17 10:39 Zyprexa - PO 15 mg BID [facility] Administration Pantoprazole Sodium 40 mg 06/02/17 10:00 06/07/17 10:39 Protonix - PO 40 mg DAILY [facility] Administration Polyethylene Glycol 17 gm 06/02/17 10:00 06/07/17 10:40 Miralax (For Daily Use) - PO Not Given DAILY [facility] Senna 2 tab 06/01/17 22:00 06/06/17 22:06 Senna - PO 2 tab HS [facility] Administration Home Medications Medication Instructions Recorded Albuterol Sulfate Inhaler - 1 puff IH Q4H 03/15/17 [Ventolin HFA Inhaler -] Budesonide/Formeterol Fumarate 1 inh PO DAILY 03/15/17 [SYMBICORT 80/4.5mcg -] Clonazepam [Klonopin] 1 mg PO BID 03/15/17 Morphine *Sr* [MS Contin -] 15 mg PO Q6H 03/15/17 Nitroglycerin [Nitrostat] 0.6 mg SL PRN PRN 03/15/17 Polyethylene Glycol 3350 [Miralax 17 gm PO DAILY 03/15/17 119 gm Btl -] Tizanidine HCl [Zanaflex] 2 mg PO TID PRN 05/13/17 Apixaban [Eliquis] 5 mg PO BID #30 tablet 05/30/17 Benztropine Mesylate [Cogentin -] 1 mg PO DAILY #30 tablet 05/30/17 Bupropion HCl [Wellbutrin Xl] 300 mg PO DAILY #30 tab.er.24h 12/28/17 Divalproex [Depakote -] 750 mg PO HS #30 tablet.ec 05/30/17 Docusate Sodium [Colace -] 300 mg PO HS #30 capsule 05/30/17 Ferrous Sulfate 325 mg PO DAILY #30 tablet 05/30/17 Fluoxetine HCl [Prozac -] 40 mg PO DAILY #30 capsule 05/30/17 Furosemide [Lasix] 40 mg PO DAILY #30 tablet 05/30/17 Gabapentin [Neurontin] 300 mg PO TID #90 tablet 05/30/17 Levothyroxine [Synthroid -] 50 mcg PO DAILY #30 tablet 05/30/17 Metformin HCl [Glucophage -] 500 mg PO BID #30 tablet 05/30/17 Metoprolol Succinate [Toprol XL -] 12.5 mg PO BID #30 tab.sr.24h 05/30/17 Pantoprazole Sodium [Protonix] 40 mg PO DAILY #30 tablet.dr 05/30/17 Quetiapine Fumarate [Seroquel] 300 tab PO HS #30 tablet 05/30/17 Sennosides [Senna -] 2 tab PO HS #30 tablet 05/30/17 Simvastatin [Zocor -] 40 mg PO HS #30 tablet 05/30/17 Insulin Sliding Scale [Novolog 1 vial SQ TIDAC units 06/07/17 Vial Sliding Scale -] Patient was seen and examined and agree with the resident's note. 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) Hyperlipidemia (Chronic) Leg pain, bilateral (Chronic) Morbid obesity (Chronic) Pelvic fracture (Chronic) - Home Medications Comprehensive Discharge Medication List: Ambulatory Orders Albuterol Sulfate Inhaler - [Ventolin HFA Inhaler -] 1 puff IH Q4H 03/15/17 Budesonide/Formeterol Fumarate [SYMBICORT 80/4.5mcg -] 1 inh PO DAILY 03/15/17 Clonazepam [Klonopin] 1 mg PO BID 03/15/17 Morphine *Sr* [MS Contin -] 15 mg PO Q6H 03/15/17 Nitroglycerin [Nitrostat] 0.6 mg SL PRN PRN 03/15/17 Polyethylene Glycol 3350 [Miralax 119 gm Btl -] 17 gm PO DAILY 03/15/17 Tizanidine HCl [Zanaflex] 2 mg PO TID PRN 05/13/17 Apixaban [Eliquis] 5 mg PO BID #30 tablet 05/30/17 Benztropine Mesylate [Cogentin -] 1 mg PO DAILY #30 tablet 05/30/17 Bupropion HCl [Wellbutrin Xl] 300 mg PO DAILY #30 tab.er.24h 05/30/17 Divalproex [Depakote -] 750 mg PO HS #30 tablet.ec 05/30/17 Docusate Sodium [Colace -] 300 mg PO HS #30 capsule 05/30/17 Ferrous Sulfate 325 mg PO DAILY #30 tablet 05/30/17 Fluoxetine HCl [Prozac -] 40 mg PO DAILY #30 capsule 05/30/17 Furosemide [Lasix] 40 mg PO DAILY #30 tablet 05/30/17 Gabapentin [Neurontin] 300 mg PO TID #90 tablet 05/30/17 Levothyroxine [Synthroid -] 50 mcg PO DAILY #30 tablet 05/30/17 Metformin HCl [Glucophage -] 500 mg PO BID #30 tablet 05/30/17 Metoprolol Succinate [Toprol XL -] 12.5 mg PO BID #30 tab.sr.24h 05/30/17 Pantoprazole Sodium [Protonix] 40 mg PO DAILY #30 tablet. 05/30/17 Quetiapine Fumarate [Seroquel] 300 tab PO HS #30 tablet 05/30/17 Sennosides [Senna -] 2 tab PO HS #30 tablet 05/30/17 Simvastatin [Zocor -] 40 mg PO HS #30 tablet 05/30/17 Insulin Sliding Scale [Novolog Vial Sliding Scale -] 1 vial SQ TIDAC units 10/18 <Deondre Moya - Last Filed: 06/07/17 14:32> Current Active Problems Auditory hallucinations (Acute) Inability to ambulate due to hip (Acute) Suicidal ideations (Acute) Asthma (Chronic) Bipolar 1 disorder, depressed (Chronic) Bipolar disorder (Chronic) CAD (coronary artery disease) (Chronic) COPD (chronic obstructive pulmonary disease) (Chronic) Chronic low back pain (Chronic) DVT (deep venous thrombosis) (Chronic) Diabetes type 2, controlled (Chronic) HTN (hypertension) (Chronic) 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) Hyperlipidemia (Chronic) Leg pain, bilateral (Chronic) Morbid obesity (Chronic) Pelvic fracture (Chronic) - Home Medications Comprehensive Discharge Medication List: Ambulatory Orders Albuterol Sulfate Inhaler - [Ventolin HFA Inhaler -] 1 puff IH Q4H 03/15/17 Budesonide/Formeterol Fumarate [SYMBICORT 80/4.5mcg -] 1 inh PO DAILY 03/15/17 Clonazepam [Klonopin] 1 mg PO BID 03/15/17 Morphine *Sr* [MS Contin -] 15 mg PO Q6H 03/15/17 Nitroglycerin [Nitrostat] 0.6 mg SL PRN PRN 03/15/17 Polyethylene Glycol 3350 [Miralax 119 gm Btl -] 17 gm PO DAILY 03/15/17 Tizanidine HCl [Zanaflex] 2 mg PO TID PRN 05/13/17 Apixaban [Eliquis] 5 mg PO BID #30 tablet 05/30/17 Benztropine Mesylate [Cogentin -] 1 mg PO DAILY #30 tablet 05/30/17 Bupropion HCl [Wellbutrin Xl] 300 mg PO DAILY #30 tab.er.24h 05/30/17 Divalproex [Depakote -] 750 mg PO HS #30 tablet.ec 05/30/17 Docusate Sodium [Colace -] 300 mg PO HS #30 capsule 05/30/17 Ferrous Sulfate 325 mg PO DAILY #30 tablet 05/30/17 Fluoxetine HCl [Prozac -] 40 mg PO DAILY #30 capsule 05/30/17 Furosemide [Lasix] 40 mg PO DAILY #30 tablet 05/30/17 Gabapentin [Neurontin] 300 mg PO TID #90 tablet 05/30/17 Levothyroxine [Synthroid -] 50 mcg PO DAILY #30 tablet 05/30/17 Metformin HCl [Glucophage -] 500 mg PO BID #30 tablet 05/30/17 Metoprolol Succinate [Toprol XL -] 12.5 mg PO BID #30 tab.sr.24h 05/30/17 Pantoprazole Sodium [Protonix] 40 mg PO DAILY #30 tablet. 05/30/17 Quetiapine Fumarate [Seroquel] 300 tab PO HS #30 tablet 05/30/17 Sennosides [Senna -] 2 tab PO HS #30 tablet 05/30/17 Simvastatin [Zocor -] 40 mg PO HS #30 tablet 05/30/17 Insulin Sliding Scale [Novolog Vial Sliding Scale -] 1 vial SQ TIDAC units 10/18 <Julianne Quinn - Last Filed: 06/07/17 20:35> Condition: Stable - Instructions Diet, Activity, Other Instructions: You presented with chest pain and difficulty ambulating. Workup did not reveal any cause for your chest pain, but it resolved on its own. Your leg pain and weakness were treated with pain control and physical therapy. Medications: continue all medications as before Follow-ups: 1. Follow up with your PCP in one week. You have been referred to Dr. Rees. 2. Follow up with psychiatry, Dr. Chacko in one week. 3. Follow up with orthopedic surgery in one week. If you develop any shortness of breath, chest pain, or any other concerning symptoms, call your PCP. Referrals: Suleiman Rees MD [Staff Physician] - Thien Mei PA [Physician Sports Teacher] - Irene Chacko MD [Staff Physician] - Disposition: CARE HOME FACILITY This patient is new to me today: No Emergency Visit: Yes ED Registration Date: 06/01/17 Care time: The patient presented to the Emergency Department on the above date and was hospitalized for further evaluation of their emergent condition. Critical Care patient: No - Discharge Referral Referred to [facility] Med [facility] No <Deondre Moya - Last Filed: 06/07/17 14:32>
--- NOTE | 2017-06-07 20:33 | PN ---
Teaching Attending Note Name of Resident: Deondre Moya ATTENDING PHYSICIAN STATEMENT I saw and evaluated the patient. I reviewed the resident's note and discussed the case with the resident. I agree with the resident's findings and plan as documented. SUBJECTIVE: OBJECTIVE: Vital Signs Temperature 97.8 F 06/07/17 18:08 Pulse Rate 86 06/07/17 18:08 Respiratory Rate 18 06/07/17 18:08 Blood Pressure 116/76 06/07/17 18:08 O2 Sat by Pulse Oximetry (%) 96 06/07/17 09:00 CBCD WBC 8.7 K/mm3 (4.0-10.0) 06/02/17 08:45 RBC 4.11 M/mm3 (3.60-5.2) 06/02/17 08:45 Hgb 11.6 GM/dL (10.7-15.3) 06/02/17 08:45 Hct 34.3 % (32.4-45.2) 06/02/17 08:45 MCV 83.4 fl (80-96) 06/02/17 08:45 MCHC 33.8 g/dl (32.0-36.0) 06/02/17 08:45 RDW 15.9 % (11.6-15.6) H 06/02/17 08:45 Plt Count 270 K/MM3 (134-434) 06/02/17 08:45 MPV 9.5 fl (7.5-11.1) 06/02/17 08:45 CMP Sodium 141 mmol/L (136-145) 06/04/17 10:05 Potassium 4.2 mmol/L (3.5-5.1) 06/04/17 10:05 Chloride 104 mmol/L (98-107) 06/04/17 10:05 Carbon Dioxide 27 mmol/L (21-32) 06/04/17 10:05 Anion Gap 10 (8-16) 06/04/17 10:05 BUN 22 mg/dL (7-18) H D 06/04/17 10:05 Creatinine 1.1 mg/dL (0.55-1.02) H 06/04/17 10:05 Creat Clearance w eGFR 58.69 (>60) 06/02/17 08:45 Random Glucose 118 mg/dL (74-106) H D 06/04/17 10:05 Calcium 8.6 mg/dL (8.5-10.1) 06/04/17 10:05 Total Bilirubin 0.4 mg/dL (0.2-1.0) 06/02/17 08:45 AST 14 U/L (15-37) L D 06/02/17 08:45 ALT 21 U/L (12-78) 06/02/17 08:45 Alkaline Phosphatase 115 U/L (45-117) 06/02/17 08:45 Total Protein 7.0 g/dl (6.4-8.2) 06/02/17 08:45 Albumin 3.0 g/dl (3.4-5.0) L 06/02/17 08:45 CARDIAC ENZYMES Creatine Kinase 214 IU/L (26-192) H 06/01/17 18:08 Troponin I < 0.02 ng/ml (0.00-0.05) 06/02/17 00:27 Current Medications Generic Name Dose Route Start Last Admin Trade Name Freq PRN Reason Stop Dose Admin Albuterol Sulfate 1 puff 06/01/17 19:15 06/06/17 18:44 Ventolin Hfa Inhaler - IH 1 puff Q4H PRN Administration Apixaban 5 mg 06/01/17 22:00 06/07/17 10:39 Eliquis - PO 5 mg BID [facility] Administration Atorvastatin Calcium 20 mg 06/01/17 22:00 06/06/17 22:06 Lipitor - PO 20 mg HS [facility] Administration Budesonide/Formoterol Fumarate 1 puff 06/02/17 10:00 06/07/17 10:41 Symbicort 80/4.5mcg - IH Not Given DAILY [facility] Divalproex Sodium 750 mg 06/01/17 22:00 06/06/17 22:08 Depakote - PO 750 mg HS [facility] Administration Docusate Sodium 300 mg 06/01/17 22:00 06/06/17 22:06 Colace - PO 300 mg HS [facility] Administration Ferrous Sulfate 325 mg 06/02/17 10:00 06/07/17 10:39 Feosol - PO 325 mg DAILY [facility] Administration Fluoxetine HCl 40 mg 06/02/17 10:00 06/07/17 10:39 Prozac - PO 40 mg DAILY [facility] Administration Furosemide 40 mg 06/02/17 10:00 06/07/17 10:39 Lasix - PO 40 mg DAILY [facility] Administration Gabapentin 300 mg 06/01/17 22:00 06/07/17 15:03 Neurontin - PO 300 mg TID [facility] Administration Insulin Aspart 1 vial 06/03/17 16:30 06/07/17 17:27 Novolog Vial Sliding Scale - SQ Not Given TIDAC [facility] Protocol Levothyroxine Sodium 50 mcg 06/02/17 07:00 06/07/17 06:13 Synthroid - PO 50 mcg DAILY@0700 [facility] Administration Metoprolol Succinate 12.5 mg 06/01/17 22:00 06/07/17 10:43 Toprol Xl - PO Not Given BID [facility] Morphine Sulfate 15 mg 06/01/17 22:00 06/07/17 15:03 Ms Contin - PO 15 mg TID [facility] Administration Nitroglycerin 0.6 mg 06/01/17 19:02 Nitrostat - SL PRN PRN chest pain Olanzapine 15 mg 06/03/17 22:00 06/07/17 10:39 Zyprexa - PO 15 mg BID [facility] Administration Pantoprazole Sodium 40 mg 06/02/17 10:00 06/07/17 10:39 Protonix - PO 40 mg DAILY [facility] Administration Polyethylene Glycol 17 gm 06/02/17 10:00 06/07/17 10:40 Miralax (For Daily Use) - PO Not Given DAILY [facility] Senna 2 tab 06/01/17 22:00 06/06/17 22:06 Senna - PO 2 tab HS [facility] Administration Home Medications Medication Instructions Recorded Albuterol Sulfate Inhaler - 1 puff IH Q4H 03/15/17 [Ventolin HFA Inhaler -] Budesonide/Formeterol Fumarate 1 inh PO DAILY 03/15/17 [SYMBICORT 80/4.5mcg -] Clonazepam [Klonopin] 1 mg PO BID 03/15/17 Morphine *Sr* [MS Contin -] 15 mg PO Q6H 03/15/17 Nitroglycerin [Nitrostat] 0.6 mg SL PRN PRN 03/15/17 Polyethylene Glycol 3350 [Miralax 17 gm PO DAILY 03/15/17 119 gm Btl -] Tizanidine HCl [Zanaflex] 2 mg PO TID PRN 05/13/17 Apixaban [Eliquis] 5 mg PO BID #30 tablet 05/30/17 Benztropine Mesylate [Cogentin -] 1 mg PO DAILY #30 tablet 05/30/17 Bupropion HCl [Wellbutrin Xl] 300 mg PO DAILY #30 tab.er.24h 05/30/17 Divalproex [Depakote -] 750 mg PO HS #30 tablet.ec 05/30/17 Docusate Sodium [Colace -] 300 mg PO HS #30 capsule 05/30/17 Ferrous Sulfate 325 mg PO DAILY #30 tablet 05/30/17 Fluoxetine HCl [Prozac -] 40 mg PO DAILY #30 capsule 05/30/17 Furosemide [Lasix] 40 mg PO DAILY #30 tablet 05/30/17 Gabapentin [Neurontin] 300 mg PO TID #90 tablet 05/30/17 Levothyroxine [Synthroid -] 50 mcg PO DAILY #30 tablet 05/30/17 Metformin HCl [Glucophage -] 500 mg PO BID #30 tablet 05/30/17 Metoprolol Succinate [Toprol XL -] 12.5 mg PO BID #30 tab.sr.24h 05/30/17 Pantoprazole Sodium [Protonix] 40 mg PO DAILY #30 tablet. 05/30/17 Quetiapine Fumarate [Seroquel] 300 tab PO HS #30 tablet 05/30/17 Sennosides [Senna -] 2 tab PO HS #30 tablet 05/30/17 Simvastatin [Zocor -] 40 mg PO HS #30 tablet 05/30/17 Insulin Sliding Scale [Novolog 1 vial SQ TIDAC units 06/07/17 Vial Sliding Scale -] ASSESSMENT AND PLAN:
[2017-06-07] MEDS: SENNOSIDES 8.6MG TABLET (FP) PO SCH (21:36)
[2017-06-07] MEDS: DOCUSATE SODIUM 100 MG CAPSULE (FP) PO SCH (21:36)
[2017-06-07] MEDS: ATORVASTATIN CA 20 MG TABLET (FP) PO SCH (21:37)
[2017-06-07] MEDS: DIVALPROEX SODIUM 250 MG TABLET E.C. (FP) PO SCH (21:39)
[2017-06-08] MEDS: LEVOTHYROXINE NA 50 MCG TABLET (FP) PO SCH (06:21)
[2017-06-08] MEDS: morphine SO4 SUSTAINED ACTING 15 MG TABLET.SA PO SCH ×3 (06:21→22:04)
[2017-06-08] MEDS: INSULIN SLIDING SCALE (NOVOLOG) 1 VIAL SQ SCH ×3 (06:21→17:34)
[2017-06-08] MEDS: GABAPENTIN 300 MG CAPSULE (FP) PO SCH ×3 (06:21→22:04)
[2017-06-08] MEDS ORDERED: PT OWN MED DRAWER 7, Y5N ONE (09:51)
[2017-06-08] MEDS: OLANZapine 5 MG TABLET PO SCH ×2 (09:56→22:03)
[2017-06-08] MEDS: FLUoxetine HCL 20 MG CAPSULE (FP) PO SCH (09:56)
[2017-06-08] MEDS: FERROUS SO4 325 MG TABLET (FP) PO SCH (09:58)
[2017-06-08] MEDS: APIXABAN 5 MG TABLET PO SCH ×2 (09:58→22:05)
[2017-06-08] MEDS: FUROSEMIDE 40 MG TABLET (FP) PO SCH (09:58)
[2017-06-08] MEDS: PANTOPRAZOLE 40 MG TABLET (FP) PO SCH (09:58)
[2017-06-08] MEDS: METOPROLOL SUCCINATE 25 MG TAB.SR.24H (FP) PO SCH ×2 (09:59→22:02)
[2017-06-08] MEDS: BUDESONIDE/FORMETEROL FUMARATE 80/4.5 mcg INHALER IH SCH (09:59)
[2017-06-08] MEDS: POLYETHYLENE GLYCOL 3350 119 GM BTL PO SCH (09:59)
[2017-06-08] MEDS: SENNOSIDES 8.6MG TABLET (FP) PO SCH (22:03)
[2017-06-08] MEDS: ATORVASTATIN CA 20 MG TABLET (FP) PO SCH (22:04)
[2017-06-08] MEDS: DIVALPROEX SODIUM 250 MG TABLET E.C. (FP) PO SCH (22:05)
[2017-06-08] MEDS: DOCUSATE SODIUM 100 MG CAPSULE (FP) PO SCH (22:06)
[2017-06-09] MEDS: morphine SO4 SUSTAINED ACTING 15 MG TABLET.SA PO SCH ×3 (06:16→22:00)
[2017-06-09] MEDS: GABAPENTIN 300 MG CAPSULE (FP) PO SCH ×3 (06:16→22:04)
[2017-06-09] MEDS: LEVOTHYROXINE NA 50 MCG TABLET (FP) PO SCH (06:16)
[2017-06-09] MEDS: INSULIN SLIDING SCALE (NOVOLOG) 1 VIAL SQ SCH ×3 (06:28→17:36)
[2017-06-09] MEDS ORDERED: PT OWN MED DRAWER 7, Y5N ONE ×4 (06:37→22:13)
[2017-06-09] MEDS ORDERED: INSULIN (NOVOLOG) ASPART 100 UNITS/ML 10ML VIAL ONE (06:37)
[2017-06-09] MEDS: OLANZapine 5 MG TABLET PO SCH ×2 (09:15→21:59)
[2017-06-09] MEDS: FLUoxetine HCL 20 MG CAPSULE (FP) PO SCH (09:16)
[2017-06-09] MEDS: FUROSEMIDE 40 MG TABLET (FP) PO SCH (09:16)
[2017-06-09] MEDS: FERROUS SO4 325 MG TABLET (FP) PO SCH (09:17)
[2017-06-09] MEDS: APIXABAN 5 MG TABLET PO SCH ×2 (09:17→21:59)
[2017-06-09] MEDS: POLYETHYLENE GLYCOL 3350 119 GM BTL PO SCH (09:18)
[2017-06-09] MEDS: PANTOPRAZOLE 40 MG TABLET (FP) PO SCH (09:18)
[2017-06-09] MEDS: METOPROLOL SUCCINATE 25 MG TAB.SR.24H (FP) PO SCH ×2 (09:18→22:01)
[2017-06-09] MEDS: BUDESONIDE/FORMETEROL FUMARATE 80/4.5 mcg INHALER IH SCH ×2 (09:19→09:20)
--- NOTE | 2017-06-09 11:41 | PN ---
<Deondre Moya - Last Filed: 06/09/17 14:51> Physical Exam: SUBJECTIVE: Patient seen and examined No acute events overnight. Pt endorses usual knee pain. She denies all other subjective complaints. OBJECTIVE: Vital Signs Period Temp Pulse Resp BP Sys/Schultz Pulse Ox Last 24 Hr 98.0 F-99.0 F 71-78 18-18 95-114/59-63 GENERAL: middle aged female, lying in bed, AAOx3 HEENT: NC, AT NECK: Trachea midline, full range of motion, supple. LUNGS: Breath sounds equal, clear to auscultation bilaterally, no wheezes, no crackles, no accessory muscle use. HEART: Regular rate and rhythm, S1, S2 without murmur, rub or gallop. ABDOMEN: obese, soft, nontender, nondistended, normoactive bowel sounds, no guarding, no rebound, no hepatosplenomegaly, no masses. EXTREMITIES: minimally tender to palpation over right hip NEUROLOGICAL: Cranial nerves II through XII grossly intact. Normal speech, gait not observed. Laboratory Results - last 24 hr 06/08/17 06/08/17 06/09/17 11:58 16:35 06:19 POC Glucometer 112 148 81 Active Medications Generic Name Dose Route Start Last Admin Trade Name Freq PRN Reason Stop Dose Admin Albuterol Sulfate 1 puff 06/01/17 19:15 06/06/17 18:44 Ventolin Hfa Inhaler - IH 1 puff Q4H PRN Administration Apixaban 5 mg 06/01/17 22:00 06/09/17 09:17 Eliquis - PO 5 mg BID [facility] Administration Atorvastatin Calcium 20 mg 06/01/17 22:00 06/08/17 22:04 Lipitor - PO 20 mg HS [facility] Administration Budesonide/Formoterol Fumarate 1 puff 06/02/17 10:00 06/09/17 09:20 Symbicort 80/4.5mcg - IH Not Given DAILY [facility] Divalproex Sodium 750 mg 06/01/17 22:00 06/08/17 22:05 Depakote - PO 750 mg HS [facility] Administration Docusate Sodium 300 mg 06/01/17 22:00 06/08/17 22:06 Colace - PO 300 mg HS [facility] Administration Ferrous Sulfate 325 mg 06/02/17 10:00 06/09/17 09:17 Feosol - PO 325 mg DAILY [facility] Administration Fluoxetine HCl 40 mg 06/02/17 10:00 06/09/17 09:16 Prozac - PO 40 mg DAILY [facility] Administration Furosemide 40 mg 06/02/17 10:00 06/09/17 09:16 Lasix - PO 40 mg DAILY [facility] Administration Gabapentin 300 mg 06/01/17 22:00 06/09/17 06:16 Neurontin - PO 300 mg TID [facility] Administration Insulin Aspart 1 vial 06/03/17 16:30 06/09/17 06:28 Novolog Vial Sliding Scale - SQ Not Given TIDAC [facility] Protocol Levothyroxine Sodium 50 mcg 06/02/17 07:00 06/09/17 06:16 Synthroid - PO 50 mcg DAILY@0700 [facility] Administration Metoprolol Succinate 12.5 mg 06/01/17 22:00 06/09/17 09:18 Toprol Xl - PO Not Given BID [facility] Morphine Sulfate 15 mg 06/01/17 22:00 06/09/17 06:16 Ms Contin - PO 15 mg TID [facility] Administration Nitroglycerin 0.6 mg 06/01/17 19:02 Nitrostat - SL PRN PRN chest pain Olanzapine 15 mg 06/03/17 22:00 06/09/17 09:15 Zyprexa - PO 15 mg BID [facility] Administration Pantoprazole Sodium 40 mg 06/02/17 10:00 06/09/17 09:18 Protonix - PO 40 mg DAILY [facility] Administration Polyethylene Glycol 17 gm 06/02/17 10:00 06/09/17 09:18 Miralax (For Daily Use) - PO 17 gm DAILY [facility] Administration Senna 2 tab 06/01/17 22:00 06/08/17 22:03 Senna - PO 2 tab HS [facility] Administration ASSESSMENT/PLAN: 51F w/ hx of CAD s/p [place], CVA/TIA, asthma, schizophrenia, HTN, and other medical problems who presented with difficulty ambulating after a mechanical fall leading to a R pelvic Fx on last admission. # Right acetabular fracture and Right inferior pubic ramus fracture after a mechanical fall -pain control and physical therapy -physiatry consulted, recs appreciated # Depression/likely has Bipolar -denies S/I at this time -spoke with psych who agrees that pt can be d/c'd home if allowed by PT -Continue bupropion, prozac, depakote, olanzapine # Diabetes Mellitus -ISS -Gabapentin # Asthma -Continue symbicort and ventolin # Hypothyroidism -Continue Synthroid # Anemia -Continue ferrous sulfate # Hyperlipidemia -Continue lipitor # Constipation -Continue colace, miralax, senna # H/O CAD and [place] -Cont metoprolol #hx of DVT -continue eliquis #HTN -continue lasix, toprol # H/o CVA # FEN -Not on IV fluids -Electrolytes WNL -Diabetic diet # Prophylaxis -For DVT: cont eliquis 5 BID -For GI: On Protonix #Dispo -D/C order in. Awaiting placement to SNF. Case discussed with attending, Dr. Cheyenne Moya MD PGY1 Visit type - Emergency Visit Emergency Visit: Yes ED Registration Date: 06/01/17 Care time: The patient presented to the Emergency Department on the above date and was hospitalized for further evaluation of their emergent condition. - New Patient This patient is new to me today: No - Critical Care Critical Care patient: No <Julianne Quinn - Last Filed: 06/09/17 19:39> Physical Exam: SUBJECTIVE: Patient seen and examined with the resident agree with the plan.
--- NOTE | 2017-06-09 16:22 | PN ---
Physical Exam: SUBJECTIVE: Patient seen and examined Patient has no new complains. feeling better. OBJECTIVE: 06/08/17 06/08/17 06/08/17 09:00 09:54 14:00 Temperature 98.3 F 99.0 F Pulse Rate 78 75 Respiratory 18 18 Rate Blood Pressure 90/52 113/60 O2 Sat by Pulse 97 Oximetry (%) GENERAL: The patient is awake, alert, and fully oriented, in no acute distress with morbid obesity. HEAD: Normal with no signs of trauma. EYES: PERRL, extraocular movements intact, sclera anicteric, conjunctiva clear. ENT: Ears normal, oropharynx clear without exudates, moist mucous membranes. NECK: Trachea midline, full range of motion, supple. LUNGS: Breath sounds equal, clear to auscultation bilaterally, no wheezes, no crackles, no accessory muscle use. HEART: Regular rate and rhythm, S1, S2 without murmur, rub or gallop. ABDOMEN: Soft, nontender, nondistended, normoactive bowel sounds, no guarding, no rebound, no hepatosplenomegaly, no masses. EXTREMITIES: 2+ pulses, warm, well-perfused, no edema. NEUROLOGICAL: Cranial nerves II through XII grossly intact. Normal speech, gait not observed. PSYCH: Normal mood, normal affect. SKIN: Warm, dry, normal turgor, no rashes or lesions noted Home Medications Medication Instructions Recorded Albuterol Sulfate Inhaler - 1 puff IH Q4H 03/15/17 [Ventolin HFA Inhaler -] Budesonide/Formeterol Fumarate 1 inh PO DAILY 03/15/17 [SYMBICORT 80/4.5mcg -] Clonazepam [Klonopin] 1 mg PO BID 03/15/17 Morphine *Sr* [MS Contin -] 15 mg PO Q6H 03/15/17 Nitroglycerin [Nitrostat] 0.6 mg SL PRN PRN 03/15/17 Polyethylene Glycol 3350 [Miralax 17 gm PO DAILY 03/15/17 119 gm Btl -] Tizanidine HCl [Zanaflex] 2 mg PO TID PRN 05/13/17 Apixaban [Eliquis] 5 mg PO BID #30 tablet 05/30/17 Benztropine Mesylate [Cogentin -] 1 mg PO DAILY #30 tablet 05/30/17 Bupropion HCl [Wellbutrin Xl] 300 mg PO DAILY #30 tab.er.24h 05/30/17 Divalproex [Depakote -] 750 mg PO HS #30 tablet.ec 05/30/17 Docusate Sodium [Colace -] 300 mg PO HS #30 capsule 05/30/17 Ferrous Sulfate 325 mg PO DAILY #30 tablet 05/30/17 Fluoxetine HCl [Prozac -] 40 mg PO DAILY #30 capsule 05/30/17 Furosemide [Lasix] 40 mg PO DAILY #30 tablet 05/30/17 Gabapentin [Neurontin] 300 mg PO TID #90 tablet 05/30/17 Levothyroxine [Synthroid -] 50 mcg PO DAILY #30 tablet 05/30/17 Metformin HCl [Glucophage -] 500 mg PO BID #30 tablet 05/30/17 Metoprolol Succinate [Toprol XL -] 12.5 mg PO BID #30 tab.sr.24h 05/30/17 Pantoprazole Sodium [Protonix] 40 mg PO DAILY #30 tablet.dr 05/30/17 Quetiapine Fumarate [Seroquel] 300 tab PO HS #30 tablet 05/30/17 Sennosides [Senna -] 2 tab PO HS #30 tablet 05/30/17 Simvastatin [Zocor -] 40 mg PO HS #30 tablet 05/30/17 Insulin Sliding Scale [Novolog 1 vial SQ TIDAC units 06/07/17 Vial Sliding Scale -] ASSESSMENT/PLAN: 51 y/o lady with h/o CAD, s/p [place], CVA/TIA, asthma, schizophrenia, HTN, and other medical problems who presented after a mechanical fall and was found to have R pelvic Fx # s/p Right acetabular Fx. patient is having difficulty with ambulation continue PT for now #No further suicidal thoughts, no further auditory hallucinatins: resolved , as per . Reeceuro No indication for in patient psych. and he is OK with her going home if she does well with PT . Cont psych meds. suicidal precautions were discontinued # Atypical CP : w/u was negative # Recent DVT : cont eliquis waiting for rehab approval papers. Visit type - Emergency Visit Emergency Visit: Yes ED Registration Date: 06/01/17 Care time: The patient presented to the Emergency Department on the above date and was hospitalized for further evaluation of their emergent condition. - New Patient This patient is new to me today: No - Critical Care Critical Care patient: No
[2017-06-09] MEDS: SENNOSIDES 8.6MG TABLET (FP) PO SCH (21:59)
[2017-06-09] MEDS: DOCUSATE SODIUM 100 MG CAPSULE (FP) PO SCH (21:59)
[2017-06-09] MEDS: ATORVASTATIN CA 20 MG TABLET (FP) PO SCH (22:00)
[2017-06-09] MEDS: DIVALPROEX SODIUM 250 MG TABLET E.C. (FP) PO SCH (22:00)
[2017-06-10] MEDS ORDERED: SODIUM CHLORIDE 250 ML IV STA (02:11)
--- NOTE | 2017-06-10 02:23 | HOSP ---
Subjective - Review of Symptoms Subjective: Agree with resident plan - Stat CBC - Hold Eliquis - Stool Occ. - UA <Abdon Rodriguez - Last Filed: 06/10/17 03:39> Physical Examination Vital Signs: Vital Signs Temperature 98.9 F 06/10/17 02:05 Pulse Rate 79 06/10/17 03:37 Respiratory Rate 20 06/10/17 02:05 Blood Pressure 109/59 06/10/17 03:37 O2 Sat by Pulse Oximetry (%) 98 06/09/17 21:00 Labs: CBC, [facility] 06/02/17 08:45 06/04/17 10:05 <Abdon Rodriguez - Last Filed: 06/10/17 03:39> Vital Signs: Vital Signs Temperature 98.9 F 06/10/17 02:05 Pulse Rate 79 06/10/17 02:05 Respiratory Rate 20 06/10/17 02:05 Blood Pressure 97/60 06/10/17 02:05 O2 Sat by Pulse Oximetry (%) 98 06/09/17 21:00 Labs: CBC, [facility] 06/02/17 08:45 06/04/17 10:05 <Nicholas Mario - Last Filed: 06/10/17 06:54> Hospitalist Encounter Assessment: I was paged by the nurse to evaluate patient mentioned due to vaginal bleeding when she was cleaning her self, around table spoon of blood was seen on the tissue . Patient also compain of lightheadedness and dizziness.Seh maureen any chest pain , abdominal pain or SOB , denies any urinary symptoms. Patient reprots she has h/o hysterectomy. Vitals tem 99.3, HR 80, BP 96/56 , O2 sat 98% RA PE: general appearance : laying down in the bed with no acute distress Head: NC/AT Lungs : CTA B/L no wheezes Heart : RRR, No M/R/G Abdomen: Obese, distended , tender to palpation all over Legs: +2 Pulse with no edema Pa AP : * STAt CBC * IV fluids NS @ 250 Bolus * Type and screen * hold eliquis for now * monitor BP * UA * Stool Occult * attending was informed . * * Sign out to day team . <Nicholas Mario - Last Filed: 06/10/17 06:54> Visit type - Emergency Visit Emergency Visit: Yes ED Registration Date: 06/01/17 Care time: The patient presented to the Emergency Department on the above date and was hospitalized for further evaluation of their emergent condition. - New Patient This patient is new to me today: Yes Date on this admission: 06/10/17 - Critical Care Critical Care patient: No <Nicholas Mario - Last Filed: 06/10/17 06:54>
[2017-06-10] MEDS: LEVOTHYROXINE NA 50 MCG TABLET (FP) PO SCH (06:23)
[2017-06-10] MEDS: GABAPENTIN 300 MG CAPSULE (FP) PO SCH ×3 (06:23→22:28)
[2017-06-10] MEDS: morphine SO4 SUSTAINED ACTING 15 MG TABLET.SA PO SCH ×3 (06:23→22:27)
[2017-06-10] MEDS: INSULIN SLIDING SCALE (NOVOLOG) 1 VIAL SQ SCH ×3 (06:26→17:31)
[2017-06-10] MEDS ORDERED: PT OWN MED DRAWER 7, Y5N ONE ×2 (09:25→12:22)
[2017-06-10] MEDS: OLANZapine 5 MG TABLET PO SCH ×2 (09:26→22:28)
[2017-06-10] MEDS: FLUoxetine HCL 20 MG CAPSULE (FP) PO SCH (09:26)
[2017-06-10] MEDS: FERROUS SO4 325 MG TABLET (FP) PO SCH (09:26)
[2017-06-10] MEDS: PANTOPRAZOLE 40 MG TABLET (FP) PO SCH (09:26)
[2017-06-10] MEDS: BUDESONIDE/FORMETEROL FUMARATE 80/4.5 mcg INHALER IH SCH (09:27)
[2017-06-10] MEDS: POLYETHYLENE GLYCOL 3350 119 GM BTL PO SCH (09:31)
[2017-06-10] MEDS: APIXABAN 5 MG TABLET PO SCH ×2 (09:54→22:28)
[2017-06-10 12:16] LABS: BASO % 0.8 % (0-2.0); EOS % 1.9 % (0-4.5); HEMATOCRIT 34.8 % (32.4-45.2); HEMOGLOBIN 11.6 GM/dL (10.7-15.3); LYMPH % 23.5 % (8-40); MCH 28.1 pg (25.7-33.7); MCHC 33.3 g/dl (32.0-36.0); MEAN CELL VOLUME 84.6 fl (80-96); MEAN PLT VOLUME 10.6 fl (7.5-11.1); MONO % 7.7 % (3.8-10.2); NEUT % 66.1 % (42.8-82.8); PLATELET COUNT 186 K/MM3 (134-434); RBC 4.11 M/mm3 (3.60-5.2); RDW 15.7 % (11.6-15.6); WHITE BLOOD COUNT 7.9 K/mm3 (4.0-10.0)
--- NOTE | 2017-06-10 16:29 | PN ---
<Deondre Moya - Last Filed: 06/10/17 16:31> Physical Exam: SUBJECTIVE: Patient seen and examined Pt complained of SOB, dizziness, and vaginal bleeding last night. She denies vaginal exam. This am, pt has no subjective complaints, and no further SOB, dizzines, and vaginal bleeding. OBJECTIVE: Vital Signs Period Temp Pulse Resp BP Sys/Schultz Pulse Ox Last 24 Hr 97.3 F-100 F 79-94 20-96 97-133/54-77 98 GENERAL: middle aged female, lying in bed, AAOx3 HEENT: NC, AT NECK: Trachea midline, full range of motion, supple. LUNGS: Breath sounds equal, clear to auscultation bilaterally, no wheezes, no crackles, no accessory muscle use. HEART: Regular rate and rhythm, S1, S2 without murmur, rub or gallop. ABDOMEN: obese, soft, nontender, nondistended, normoactive bowel sounds, no guarding, no rebound, no hepatosplenomegaly, no masses. EXTREMITIES: minimally tender to palpation over right hip and knee NEUROLOGICAL: Cranial nerves II through XII grossly intact. Normal speech, gait not observed. Laboratory Results - last 24 hr 06/09/17 06/10/17 06/10/17 17:36 05:36 11:32 WBC 7.9 RBC 4.11 Hgb 11.6 Hct 34.8 MCV 84.6 MCH 28.1 MCHC 33.3 RDW 15.7 H Plt Count 186 D MPV 10.6 D Neutrophils % 66.1 Lymphocytes % 23.5 Monocytes % 7.7 Eosinophils % 1.9 D Basophils % 0.8 POC Glucometer 107 92 06/10/17 11:42 WBC RBC Hgb Hct MCV MCH MCHC RDW Plt Count MPV Neutrophils % Lymphocytes % Monocytes % Eosinophils % Basophils % POC Glucometer 137 Active Medications Generic Name Dose Route Start Last Admin Trade Name Freq PRN Reason Stop Dose Admin Albuterol Sulfate 1 puff 06/01/17 19:15 06/06/17 18:44 Ventolin Hfa Inhaler - IH 1 puff Q4H PRN Administration Apixaban 5 mg 06/01/17 22:00 06/10/17 09:54 Eliquis - PO 5 mg BID BHARAT Administration Atorvastatin Calcium 20 mg 06/01/17 22:00 06/09/17 22:00 Lipitor - PO 20 mg HS BHARAT Administration Budesonide/Formoterol Fumarate 1 puff 06/02/17 10:00 06/10/17 09:27 Symbicort 80/4.5mcg - IH Not Given DAILY BHARAT Divalproex Sodium 750 mg 06/01/17 22:00 06/09/17 22:00 Depakote - PO 750 mg HS BHARAT Administration Docusate Sodium 300 mg 06/01/17 22:00 06/09/17 21:59 Colace - PO 300 mg HS BHARAT Administration Ferrous Sulfate 325 mg 06/02/17 10:00 06/10/17 09:26 Feosol - PO 325 mg DAILY BHARAT Administration Fluoxetine HCl 40 mg 06/02/17 10:00 06/10/17 09:26 Prozac - PO 40 mg DAILY BHARAT Administration Furosemide 40 mg 06/02/17 10:00 06/09/17 09:16 Lasix - PO 40 mg DAILY BHARAT Administration Gabapentin 300 mg 06/01/17 22:00 06/10/17 14:50 Neurontin - PO 300 mg TID [facility] Administration Insulin Aspart 1 vial 06/03/17 16:30 06/10/17 11:43 Novolog Vial Sliding Scale - SQ Not Given TIDAC [facility] Protocol Levothyroxine Sodium 50 mcg 06/02/17 07:00 06/10/17 06:23 Synthroid - PO 50 mcg DAILY@0700 [facility] Administration Metoprolol Succinate 12.5 mg 06/01/17 22:00 06/09/17 22:01 Toprol Xl - PO 12.5 mg BID BHARAT Administration Morphine Sulfate 15 mg 06/01/17 22:00 06/10/17 14:50 Ms Contin - PO 15 mg TID [facility] Administration Nitroglycerin 0.6 mg 06/01/17 19:02 Nitrostat - SL PRN PRN chest pain Olanzapine 15 mg 06/03/17 22:00 06/10/17 09:26 Zyprexa - PO 15 mg BID BHARAT Administration Pantoprazole Sodium 40 mg 06/02/17 10:00 06/10/17 09:26 Protonix - PO 40 mg DAILY BHARAT Administration Polyethylene Glycol 17 gm 06/02/17 10:00 06/10/17 09:31 Miralax (For Daily Use) - PO Not Given DAILY [facility] Senna 2 tab 06/01/17 22:00 06/09/17 21:59 Senna - PO 2 tab HS BHARAT Administration ASSESSMENT/PLAN: 51F w/ hx of CAD s/p [place], CVA/TIA, asthma, schizophrenia, HTN, and other medical problems who presented with difficulty ambulating after a mechanical fall leading to a R pelvic Fx on last admission. # Right acetabular fracture and Right inferior pubic ramus fracture after a mechanical fall -pain control and physical therapy -physiatry consulted, recs appreciated # Depression/likely has Bipolar -denies S/I at this time -spoke with psych who agrees that pt can be d/c'd home if allowed by PT -Continue bupropion, prozac, depakote, olanzapine # Diabetes Mellitus -ISS -Gabapentin # Asthma -Continue symbicort and ventolin # Hypothyroidism -Continue Synthroid # Anemia -Hgb stable at 11.6 -Continue ferrous sulfate # Hyperlipidemia -Continue lipitor # Constipation -Continue colace, miralax, senna # H/O CAD and [place] -Cont metoprolol #hx of DVT -continue eliquis #HTN -continue lasix, toprol # H/o CVA # FEN -Not on IV fluids -Electrolytes WNL -Diabetic diet # Prophylaxis -For DVT: cont eliquis 5 BID -For GI: On Protonix #Dispo -D/C order in. Awaiting placement to SNF. Case discussed with attending, Dr. Quinn -Deondre Moya MD PGY1 Visit type - Emergency Visit Emergency Visit: Yes ED Registration Date: 06/01/17 Care time: The patient presented to the Emergency Department on the above date and was hospitalized for further evaluation of their emergent condition. - New Patient This patient is new to me today: No - Critical Care Critical Care patient: No <Julianne Quinn - Last Filed: 06/10/17 16:40> Physical Exam: SUBJECTIVE: Patient seen and examined Agree with the resident's note. Events noted overnight, patient was placed back on Eliquis. Patient would need cervical bx upon discharge by her OBGYN.
[2017-06-10] MEDS: DOCUSATE SODIUM 100 MG CAPSULE (FP) PO SCH (22:26)
[2017-06-10] MEDS: ATORVASTATIN CA 20 MG TABLET (FP) PO SCH (22:27)
[2017-06-10] MEDS: SENNOSIDES 8.6MG TABLET (FP) PO SCH (22:27)
[2017-06-10] MEDS: DIVALPROEX SODIUM 250 MG TABLET E.C. (FP) PO SCH (22:28)
[2017-06-11 05:23] VITALS: PULSE 82; TEMP 98.5
[2017-06-11] MEDS: INSULIN SLIDING SCALE (NOVOLOG) 1 VIAL SQ SCH (06:41)
[2017-06-11] MEDS: LEVOTHYROXINE NA 50 MCG TABLET (FP) PO SCH (06:41)
[2017-06-11] MEDS: GABAPENTIN 300 MG CAPSULE (FP) PO SCH (06:41)
[2017-06-11] MEDS: morphine SO4 SUSTAINED ACTING 15 MG TABLET.SA PO SCH (06:41)
[2017-06-11] MEDS ORDERED: PT OWN MED DRAWER 7, Y5N ONE (10:10)
[2017-06-11] MEDS: APIXABAN 5 MG TABLET PO SCH (10:30)
[2017-06-11] MEDS: FLUoxetine HCL 20 MG CAPSULE (FP) PO SCH (10:30)
[2017-06-11] MEDS: FERROUS SO4 325 MG TABLET (FP) PO SCH (10:30)
[2017-06-11] MEDS: OLANZapine 5 MG TABLET PO SCH (10:30)
[2017-06-11] MEDS: METOPROLOL SUCCINATE 25 MG TAB.SR.24H (FP) PO SCH (10:30)
[2017-06-11] MEDS: FUROSEMIDE 40 MG TABLET (FP) PO SCH (10:30)
[2017-06-11] MEDS: BUDESONIDE/FORMETEROL FUMARATE 80/4.5 mcg INHALER IH SCH (10:31)
[2017-06-11] MEDS: POLYETHYLENE GLYCOL 3350 119 GM BTL PO SCH (10:31)
[2017-06-11] MEDS: PANTOPRAZOLE 40 MG TABLET (FP) PO SCH (10:31)
--- NOTE | 2017-06-11 10:38 | PN ---
Teaching Attending Note Name of Resident: Deondre Moya ATTENDING PHYSICIAN STATEMENT I saw and evaluated the patient. I reviewed the resident's note and discussed the case with the resident. I agree with the resident's findings and plan as documented. SUBJECTIVE: Patient is comfortable with no acute distress OBJECTIVE: Vital Signs Temperature 98.5 F 06/11/17 05:22 Pulse Rate 82 06/11/17 05:22 Respiratory Rate 20 06/11/17 05:22 Blood Pressure 121/60 06/11/17 05:22 O2 Sat by Pulse Oximetry (%) 95 06/10/17 21:00 CBCD WBC 7.9 K/mm3 (4.0-10.0) 06/10/17 11:32 RBC 4.11 M/mm3 (3.60-5.2) 06/10/17 11:32 Hgb 11.6 GM/dL (10.7-15.3) 06/10/17 11:32 Hct 34.8 % (32.4-45.2) 06/10/17 11:32 MCV 84.6 fl (80-96) 06/10/17 11:32 MCHC 33.3 g/dl (32.0-36.0) 06/10/17 11:32 RDW 15.7 % (11.6-15.6) H 06/10/17 11:32 Plt Count 186 K/MM3 (134-434) D 06/10/17 11:32 MPV 10.6 fl (7.5-11.1) D 06/10/17 11:32 CMP Sodium 141 mmol/L (136-145) 06/04/17 10:05 Potassium 4.2 mmol/L (3.5-5.1) 06/04/17 10:05 Chloride 104 mmol/L (98-107) 06/04/17 10:05 Carbon Dioxide 27 mmol/L (21-32) 06/04/17 10:05 Anion Gap 10 (8-16) 06/04/17 10:05 BUN 22 mg/dL (7-18) H D 06/04/17 10:05 Creatinine 1.1 mg/dL (0.55-1.02) H 06/04/17 10:05 Creat Clearance w eGFR 58.69 (>60) 06/02/17 08:45 Random Glucose 118 mg/dL (74-106) H D 06/04/17 10:05 Calcium 8.6 mg/dL (8.5-10.1) 06/04/17 10:05 Total Bilirubin 0.4 mg/dL (0.2-1.0) 06/02/17 08:45 AST 14 U/L (15-37) L D 06/02/17 08:45 ALT 21 U/L (12-78) 06/02/17 08:45 Alkaline Phosphatase 115 U/L (45-117) 06/02/17 08:45 Total Protein 7.0 g/dl (6.4-8.2) 06/02/17 08:45 Albumin 3.0 g/dl (3.4-5.0) L 06/02/17 08:45 CARDIAC ENZYMES Creatine Kinase 214 IU/L (26-192) H 06/01/17 18:08 Troponin I < 0.02 ng/ml (0.00-0.05) 06/02/17 00:27 Current Medications Generic Name Dose Route Start Last Admin Trade Name Freq PRN Reason Stop Dose Admin Albuterol Sulfate 1 puff 06/01/17 19:15 06/06/17 18:44 Ventolin Hfa Inhaler - IH 1 puff Q4H PRN Administration Apixaban 5 mg 06/01/17 22:00 06/10/17 22:28 Eliquis - PO 5 mg BID BHARAT Administration Atorvastatin Calcium 20 mg 06/01/17 22:00 06/10/17 22:27 Lipitor - PO 20 mg HS BHARAT Administration Budesonide/Formoterol Fumarate 1 puff 06/02/17 10:00 06/10/17 09:27 Symbicort 80/4.5mcg - IH Not Given DAILY BHARAT Divalproex Sodium 750 mg 06/01/17 22:00 06/10/17 22:28 Depakote - PO 750 mg HS BHARAT Administration Docusate Sodium 300 mg 06/01/17 22:00 06/10/17 22:26 Colace - PO 300 mg HS BHARAT Administration Ferrous Sulfate 325 mg 06/02/17 10:00 06/10/17 09:26 Feosol - PO 325 mg DAILY [facility]ARAT Administration Fluoxetine HCl 40 mg 06/02/17 10:00 06/10/17 09:26 Prozac - PO 40 mg DAILY [facility]ARAT Administration Furosemide 40 mg 06/02/17 10:00 06/09/17 09:16 Lasix - PO 40 mg DAILY BHARAT Administration Gabapentin 300 mg 06/01/17 22:00 06/11/17 06:41 Neurontin - PO 300 mg TID BHARAT Administration Insulin Aspart 1 vial 06/03/17 16:30 06/11/17 06:41 Novolog Vial Sliding Scale - SQ Not Given TIDAC [facility] Protocol Levothyroxine Sodium 50 mcg 06/02/17 07:00 06/11/17 06:41 Synthroid - PO 50 mcg DAILY@0700 BHARAT Administration Metoprolol Succinate 12.5 mg 06/01/17 22:00 06/09/17 22:01 Toprol Xl - PO 12.5 mg BID [facility] Administration Morphine Sulfate 15 mg 06/01/17 22:00 06/11/17 06:41 Ms Contin - PO 15 mg TID [facility] Administration Nitroglycerin 0.6 mg 06/01/17 19:02 Nitrostat - SL PRN PRN chest pain Olanzapine 15 mg 06/03/17 22:00 06/10/17 22:28 Zyprexa - PO 15 mg BID BHARAT Administration Pantoprazole Sodium 40 mg 06/02/17 10:00 06/10/17 09:26 Protonix - PO 40 mg DAILY [facility] Administration Polyethylene Glycol 17 gm 06/02/17 10:00 06/10/17 09:31 Miralax (For Daily Use) - PO Not Given DAILY [facility] Senna 2 tab 06/01/17 22:00 06/10/17 22:27 Senna - PO 2 tab HS [facility] Administration Home Medications Medication Instructions Recorded Albuterol Sulfate Inhaler - 1 puff IH Q4H 03/15/17 [Ventolin HFA Inhaler -] Budesonide/Formeterol Fumarate 1 inh PO DAILY 03/15/17 [SYMBICORT 80/4.5mcg -] Clonazepam [Klonopin] 1 mg PO BID 03/15/17 Morphine *Sr* [MS Contin -] 15 mg PO Q6H 03/15/17 Nitroglycerin [Nitrostat] 0.6 mg SL PRN PRN 03/15/17 Polyethylene Glycol 3350 [Miralax 17 gm PO DAILY 03/15/17 119 gm Btl -] Tizanidine HCl [Zanaflex] 2 mg PO TID PRN 05/13/17 Apixaban [Eliquis] 5 mg PO BID #30 tablet 05/30/17 Benztropine Mesylate [Cogentin -] 1 mg PO DAILY #30 tablet 05/30/17 Bupropion HCl [Wellbutrin Xl] 300 mg PO DAILY #30 tab.er.24h 05/30/17 Divalproex [Depakote -] 750 mg PO HS #30 tablet.ec 05/30/17 Docusate Sodium [Colace -] 300 mg PO HS #30 capsule 05/30/17 Ferrous Sulfate 325 mg PO DAILY #30 tablet 05/30/17 Fluoxetine HCl [Prozac -] 40 mg PO DAILY #30 capsule 05/30/17 Furosemide [Lasix] 40 mg PO DAILY #30 tablet 05/30/17 Gabapentin [Neurontin] 300 mg PO TID #90 tablet 05/30/17 Levothyroxine [Synthroid -] 50 mcg PO DAILY #30 tablet 05/30/17 Metformin HCl [Glucophage -] 500 mg PO BID #30 tablet 05/30/17 Metoprolol Succinate [Toprol XL -] 12.5 mg PO BID #30 tab.sr.24h 05/30/17 Pantoprazole Sodium [Protonix] 40 mg PO DAILY #30 tablet. 05/30/17 Quetiapine Fumarate [Seroquel] 300 tab PO HS #30 tablet 05/30/17 Sennosides [Senna -] 2 tab PO HS #30 tablet 05/30/17 Simvastatin [Zocor -] 40 mg PO HS #30 tablet 05/30/17 Insulin Sliding Scale [Novolog 1 vial SQ TIDAC units 06/07/17 Vial Sliding Scale -] PE: as per resident ASSESSMENT AND PLAN: 51 y/o lady with h/o CAD, s/p [place], CVA/TIA, asthma, schizophrenia, HTN, and other medical problems who presented after a mechanical fall and was found to have R pelvic Fx # s/p Right acetabular Fx. patient is having difficulty with ambulation , rehab placement. Patient is being discharged today. #No further suicidal thoughts, no further auditory hallucinatins: resolved , as per . Cheupuro No indication for in patient psych. and he is OK with her going to rehab. Cont psych meds. # Atypical CP : w/u was negative # Recent DVT : cont eliquis patient is being discharged today .
[2017-06-11 12:37] VITALS: BP 113/63
--- NOTE | 2017-06-11 14:08 | DS ---
Physical Exam: SUBJECTIVE: Patient seen and examined No acute events overnight. Pt endorses right knee pain. She denies all other subjective complaints. OBJECTIVE: Vital Signs Period Temp Pulse Resp BP Sys/Schultz Pulse Ox Last 24 Hr 98.5 F-99.8 F 75-85 18-20 99-121/51-68 95-95 PHYSICAL EXAM GENERAL: middle aged female, lying in bed, AAOx3 HEENT: NC, AT NECK: Trachea midline, full range of motion, supple. LUNGS: Breath sounds equal, clear to auscultation bilaterally, no wheezes, no crackles, no accessory muscle use. HEART: Regular rate and rhythm, S1, S2 without murmur, rub or gallop. ABDOMEN: obese, soft, nontender, nondistended, normoactive bowel sounds, no guarding, no rebound, no hepatosplenomegaly, no masses. EXTREMITIES: minimally tender to palpation over right hip and right knee NEUROLOGICAL: Cranial nerves II through XII grossly intact. Normal speech, gait not observed. LABS Laboratory Results - last 24 hr 06/10/17 06/11/17 17:29 06:40 POC Glucometer [address]: negative Hip XR: negative HOSPITAL COURSE: Date of Admission:06/01/17 Date of Discharge: 06/11/17 51F w/ hx of CAD s/p [place], CVA/TIA, asthma, schizophrenia, HTN, and other medical problems who presented with difficulty ambulating and chest pain after she suffered a mechanical fall leading to a R pelvic Fx on last admission. Her difficulty ambulating was treated with pain control and physical therapy, and physiatry was consulted as well. Her chest pain was worked up and was negative, and it resolved on its own over her hospitalization. Pt became acutely suicidal for a day requiring a 1:1 for observation. Pt was seen by psychiatry who stated that pt exhibits manipulative behavior and was not acutely suicidal. Pt also suffered an unwitnessed fall onto her side while on the way to the bathroom. Head CT and hip XR were negative for any fractures or bleeding. Today, pt has normal vitals, a benign physical exam, and is stable for discharge to a SNF. Pt instructed to follow up with her PCP, orthopedic surgery , and psychiatry. -Deondre Moya MD PGY1 Minutes to complete discharge: 38 Discharge Summary Reason For Visit: FRACTURE OF PELVIS Condition: Stable - Instructions Diet, Activity, Other Instructions: You presented with chest pain and difficulty ambulating. Workup did not reveal any cause for your chest pain, but it resolved on its own. Your leg pain and weakness were treated with pain control and physical therapy. Medications: continue all medications as before Follow-ups: 1. Follow up with your PCP in one week. You have been referred to Dr. Rees. 2. Follow up with psychiatry, Dr. Chacko in one week. 3. Follow up with orthopedic surgery in one week. If you develop any shortness of breath, chest pain, or any other concerning symptoms, call your PCP. Follow up with OBGYN for cervical Biopsy to r/o cervical cancer. Referrals: Suleiman Rees MD [Staff Physician] - Thien Mei PA [Physician Hook Loader] - Irene Chacko MD [Staff Physician] - Disposition: INTERMEDIATE FACILITY - Home Medications Comprehensive Discharge Medication List: Ambulatory Orders Albuterol Sulfate Inhaler - [Ventolin HFA Inhaler -] 1 puff IH Q4H 03/15/17 Budesonide/Formeterol Fumarate [SYMBICORT 80/4.5mcg -] 1 inh PO DAILY 03/15/17 Clonazepam [Klonopin] 1 mg PO BID 03/15/17 Morphine *Sr* [MS Contin -] 15 mg PO Q6H 03/15/17 Nitroglycerin [Nitrostat] 0.6 mg SL PRN PRN 03/15/17 Polyethylene Glycol 3350 [Miralax 119 gm Btl -] 17 gm PO DAILY 03/15/17 Tizanidine HCl [Zanaflex] 2 mg PO TID PRN 05/13/17 Apixaban [Eliquis] 5 mg PO BID #30 tablet 05/30/17 Benztropine Mesylate [Cogentin -] 1 mg PO DAILY #30 tablet 05/30/17 Bupropion HCl [Wellbutrin Xl] 300 mg PO DAILY #30 tab.er.24h 05/30/17 Divalproex [Depakote -] 750 mg PO HS #30 tablet.ec 05/30/17 Docusate Sodium [Colace -] 300 mg PO HS #30 capsule 05/30/17 Ferrous Sulfate 325 mg PO DAILY #30 tablet 05/30/17 Fluoxetine HCl [Prozac -] 40 mg PO DAILY #30 capsule 05/30/17 Furosemide [Lasix] 40 mg PO DAILY #30 tablet 05/30/17 Gabapentin [Neurontin] 300 mg PO TID #90 tablet 05/30/17 Levothyroxine [Synthroid -] 50 mcg PO DAILY #30 tablet 05/30/17 Metformin HCl [Glucophage -] 500 mg PO BID #30 tablet 05/30/17 Metoprolol Succinate [Toprol XL -] 12.5 mg PO BID #30 tab.sr.24h 05/30/17 Pantoprazole Sodium [Protonix] 40 mg PO DAILY #30 tablet. 05/30/17 Quetiapine Fumarate [Seroquel] 300 tab PO HS #30 tablet 05/30/17 Sennosides [Senna -] 2 tab PO HS #30 tablet 05/30/17 Simvastatin [Zocor -] 40 mg PO HS #30 tablet 05/30/17 Insulin Sliding Scale [Novolog Vial Sliding Scale -] 1 vial SQ TIDAC units 10/18 This patient is new to me today: No Emergency Visit: Yes ED Registration Date: 06/01/17 Care time: The patient presented to the Emergency Department on the above date and was hospitalized for further evaluation of their emergent condition. Critical Care patient: No - Discharge Referral Referred to [facility] No
== END 2017-06-11 11:58 | DRG 341 ==
LOC: JER 16:59 → JERBED 18:59 → UNDOADMIN 19:06 → JERBED 19:06 → J6S 20:24 → J5S 06-03 20:56
PROVIDERS: ADMIT Internal Medicine; ATTEND Internal Medicine
DX: S32.491A Other specified fracture of right acetabulum, initial encounter for closed fracture (principal); S32.591A Other specified fracture of right pubis, initial encounter for closed fracture; W19.XXXA Unspecified fall, initial encounter; Y93.9 Activity, unspecified; Y92.89 Other specified places as the place of occurrence of the external cause; Y99.9 Unspecified external cause status; F31.9 Bipolar disorder, unspecified; F32.9 Major depressive disorder, single episode, unspecified; I25.10 Atherosclerotic heart disease of native coronary artery without angina pectoris; J45.909 Unspecified asthma, uncomplicated; M54.5 Low back pain; E11.9 Type 2 diabetes mellitus without complications; I10 Essential (primary) hypertension; E78.5 Hyperlipidemia, unspecified; E66.01 Morbid (severe) obesity due to excess calories; Z68.36 Body mass index [BMI] 36.0-36.9, adult; R07.89 Other chest pain; E03.9 Hypothyroidism, unspecified; D64.9 Anemia, unspecified; K59.00 Constipation, unspecified; Z86.73 Personal history of transient ischemic attack (TIA), and cerebral infarction without residual deficits; J44.9 Chronic obstructive pulmonary disease, unspecified; R44.0 Auditory hallucinations; N39.0 Urinary tract infection, site not specified; Z87.891 Personal history of nicotine dependence
CPT/HCPCS: 36415; 70450-TC; 71010-TC; 73523-TC; 80048; 80053; 82550; 82553; 82962; 83735; 84100; 84484; 85025; 85610; 85730; 93005; 93010; 93971-TC; 97116-GP; 97161-GP; 99284-25

== ENCOUNTER 2017-06-15 13:08 | Emergency (ER) | payer OTHER ==
[2017-06-15 13:30] VITALS: BP 113/65; PULSE 86; TEMP 98.1; BMI 37.9
--- NOTE | 2017-06-15 13:34 | PDOC ---
History of Present Illness - General Chief Complaint: Psychiatric Stated Complaint: SUICIDAL Time Seen by Provider: 06/15/17 13:32 History Source: Patient - History of Present Illness Timing/Duration: other Past History - Past Medical History Allergies/Adverse Reactions: Allergies Allergy/AdvReac Type Severity Reaction Status Date / Time hydromorphone HCl Allergy Intermediate Itching Verified 06/15/17 13:25 [From Dilaudid] amoxicillin [Amoxicillin] Allergy Verified 06/15/17 13:25 ampicillin Allergy Verified 06/15/17 13:25 aspirin Allergy Difficulty Verified 06/15/17 13:25 Breathing cranberry Allergy Rash Verified 06/15/17 13:25 doxycycline Allergy Rash Verified 06/15/17 13:25 Fish Containing Products Allergy Difficulty Verified 06/15/17 13:25 Breathing haloperidol [From Haldol] Allergy Rash Verified 06/15/17 13:25 haloperidol lactate Allergy Rash Verified 06/15/17 13:25 [From Haldol] ibuprofen [From Motrin] Allergy Difficulty Verified 06/15/17 13:25 Breathing ketorolac tromethamine Allergy Rash Verified 06/15/17 13:25 [From Toradol] levofloxacin [From Levaquin] Allergy Rash Verified 06/15/17 13:25 milk Allergy Difficulty Verified 06/15/17 13:25 Breathing oxycodone HCl [From Percocet] Allergy Rash Verified 06/15/17 13:25 Penicillins Allergy Difficulty Verified 06/15/17 13:25 Breathing sulfamethoxazole Allergy Rash Verified 06/15/17 13:25 [From Bactrim] trimethoprim [From Bactrim] Allergy Verified 06/15/17 13:25 warfarin sodium Allergy Verified 06/15/17 13:25 [From Coumadin] Gravy Allergy Unknown Uncoded 06/15/17 13:25 Cranberry/Cranberry juice Allergy Uncoded 06/15/17 13:25 raw tomato Allergy Uncoded 06/15/17 13:25 Home Medications: Ambulatory Orders Albuterol Sulfate Inhaler - [Ventolin Hfa Inhaler -] 1 inh PO Q4H PRN 06/15/17 Apixaban [Eliquis] 5 mg PO BID 06/15/17 Benztropine Mesylate 1 mg PO DAILY 06/15/17 Budesonide/Formeterol Fumarate [SYMBICORT 80/4.5mcg -] 1 inh PO DAILY 06/15/17 Bupropion HCl [Bupropion Xl] 300 mg PO DAILY 06/15/17 Clonazepam 1 mg PO Q12H 06/15/17 Divalproex [Depakote -] 750 mg PO BID 06/15/17 Docusate Sodium [Colace] 300 mg PO HS 06/15/17 Ferrous Sulfate 325 mg PO DAILY 06/15/17 Fluoxetine HCl 20 mg PO DAILY 06/15/17 Furosemide [Lasix] 40 mg PO DAILY 06/15/17 Gabapentin 300 mg PO TID 06/15/17 Insulin Aspart [Novolog] 10 unit SQ TID 06/15/17 Levothyroxine [Synthroid -] 50 mcg PO DAILY 06/15/17 Metformin HCl 500 mg PO BID 06/15/17 Metoprolol Tartrate 12.5 mg PO BID 06/15/17 Morphine Sulfate [Morphine Sulfate ER] 15 mg PO Q6H PRN 06/15/17 Nitroglycerin Sublingual [Nitrostat -] 0.6 mg SL PRN PRN 06/15/17 Omeprazole Magnesium [Prilosec Otc] 40 mg PO DAILY 06/15/17 Pantoprazole Sodium [Protonix] 40 mg PO DAILY 06/15/17 Polyethylene Glycol 3350 [Clearlax] 17 gm PO DAILY 06/15/17 Quetiapine Fumarate [Seroquel] 400 mg PO HS 06/15/17 Sennosides/Docusate Sodium [Senna Laxative Tablet] 1 each PO DAILY 06/15/17 Simvastatin 40 mg PO HS 06/15/17 Tizanidine HCl 2 mg PO Q8H PRN 06/15/17 Anemia: Yes Asthma: Yes Cancer: No Cardiac Disorders: Yes (chest pain, CAD, [place] x3) CVA: Yes (CVA x3, TIA, left sided residual) COPD: No CHF: No DVT: No Dementia: No Diabetes: Yes GI Disorders: Yes (PEPTIC ULCER) Disorders: No HTN: Yes Hypercholesterolemia: Yes Liver Disease: No Psychiatric Problems: Yes (BIPOLAR, POST TRAMATIC STRESS) Seizures: No Thyroid Disease: No - Surgical History Abdominal Surgery: Yes Appendectomy: No Cardiac Surgery: No Cholecystectomy: No Lung Surgery: No Neurologic Surgery: No Orthopedic Surgery: Yes - Immunization History Immunization Up to Date: No - Suicide/Smoking/Psychosocial Hx Smoking Status: Yes Smoking History: Never smoked Have you smoked in the past 12 months: Yes Number of Cigarettes Smoked Daily: 1 If you are a former smoker, when did you quit?: 09/18/2014 Cigars Per Day: 20 Information on smoking cessation initiated: No 'Breaking Loose' booklet given: 10/30/14 Hx Alcohol Use: No Drug/Substance Use Hx: No Substance Use Type: None Hx Substance Use Treatment: Yes Review of Systems - Review of Systems Constitutional: No: Chills, Fever Respiratory: No: Cough, Shortness of Breath Cardiac (ROS): No: Chest Pain ABD/GI: No: Constipated, Diarrhea, Nausea, Vomiting : No: Dysuria Neurological: No: Headache, Dizziness Psychiatric: Yes: Depression, Other (auditory hallucinations) *Physical Exam - Vital Signs Last Vital Signs Temp Pulse Resp BP Pulse Ox 98.1 F 86 18 113/65 96 06/15/17 13:25 06/15/17 13:25 06/15/17 13:25 06/15/17 13:25 06/15/17 13:25 - Physical Exam General Appearance: Yes: Appropriately Dressed. No: Apparent Distress HEENT: positive: Normal Voice Neck: positive: Supple Respiratory/Chest: positive: Lungs Clear, Normal Breath Sounds. negative: Respiratory Distress Cardiovascular: positive: Regular Rate, S1, S2 Gastrointestinal/Abdominal: positive: Soft. negative: Tender Musculoskeletal: negative: CVA Tenderness Extremity: positive: Normal Inspection Integumentary: positive: Dry, Warm Neurologic: positive: Fully Oriented, Alert, Other (depressed mood) Medical Decision Making - Medical Decision Making 06/15/17 13:33 51-year-old female, history of CAD, PR, CVA, asthma, hypertension, schizoaffective d/o, depression, anxiety on the seroquen, klonopin and prozac, s /p recent admission for right acetabular fracture, sent from [facility] for suicidal ideation. She admits to feeling depressed for the past several days and states it is due to "many things". States she is hearing voices telling her to hurt herself but admits to me that she has no intention of doing so. Patient did have a suicidal attempt many years ago when she OD on meds. Pt admits that she frequently has suicidal ideation but that feeling usually disappear on it's own gradually. Patient states she is not sure why her staff at rehab sent her to ED as it is "a waste of time" as she will not hurt herself per patient. States will refuse admission if that is the recommendation of psychiatry. Pt stable and in no apparent distress. 1:1 ordered w/ labs, including urine tox, acetaminophen and salicylate level sent. Will consult with psychiatry 06/15/17 14:29 Patient refusing blood work or any other interventions at this time. Repeats to me that she has no intentions of hurting herself and feels that it was a waste of time sending her to ED. Case discussed with Dr. Chacko who knows pt well and states patient frequently verbalizes thoughts of hurting herself with no attempt in many years. States based on his previous evaluations of patient, that patient has very low risk of actually making an attempt. States patient does not meet criteria for inpatient psych admission at this time and can be sent back to rehab. ED attg aware and agrees w/ plan 06/15/17 14:34 *DC/Admit/Observation/Transfer Diagnosis at time of Disposition: Depression Qualifiers: Depression Type: unspecified Qualified Code(s): F32.9 - Major depressive disorder, single episode, unspecified - Discharge Dispostion Disposition: HOME Condition at time of disposition: Stable - Referrals Referrals: Irene Chacko MD [Staff Physician] - - Patient Instructions Additional Instructions: ED staff spoke to psychiatry, who states you do not meet inpatient psych admission at this time and can be returned to subacute rehabilitation. Please follow-up with Dr. Chacko of psychiatry Return for worsening of symptoms - Post Discharge Activity
--- NOTE | 2017-06-15 14:12 | PDOC ---
*Physical Exam - Vital Signs Last Vital Signs Temp Pulse Resp BP Pulse Ox 98.1 F 86 18 113/65 96 06/15/17 13:25 06/15/17 13:25 06/15/17 13:25 06/15/17 13:25 06/15/17 13:25 - Physical Exam Comments: 06/15/17 14:12 The patient was examined by [FANI Barnhart] under my direct supervision. I personally evaluated the patient. I concur with the above findings and the plan of care.
== END 2017-06-15 15:54 | disposition home or self-care (01) ==
LOC: JER 13:08
DX: J32.9 Chronic sinusitis, unspecified (principal); F31.9 Bipolar disorder, unspecified; F43.10 Post-traumatic stress disorder, unspecified; I10 Essential (primary) hypertension; E78.00 Pure hypercholesterolemia, unspecified; E11.9 Type 2 diabetes mellitus without complications; Z79.4 Long term (current) use of insulin; Z79.84 Long term (current) use of oral hypoglycemic drugs; I25.2 Old myocardial infarction; I69.854 Hemiplegia and hemiparesis following other cerebrovascular disease affecting left non-dominant side; J45.909 Unspecified asthma, uncomplicated; D64.9 Anemia, unspecified
CPT/HCPCS: 99283-25

== ENCOUNTER 2017-06-18 21:36 | Emergency (ER) | payer OTHER ==
[2017-06-18 22:18] VITALS: BP 113/60; PULSE 68; TEMP 98; BMI 44.3
--- NOTE | 2017-06-18 23:08 | PDOC ---
History of Present Illness - General History Source: Patient Exam Limitations: No Limitations - History of Present Illness Initial Comments: 06/18/17 23:15 The patient is a 51 year old female with history of hypertension, hyperlipidemia , DM, hypothyroidism, CAD, vertigo, schizoaffective disorder, sent from [facility] after sustaining a fall this evening. Per OR staff, the patient was found at the foot of her wheelchair. The patient states she felt dizzy, consistent with her vertigo, and fell out of her chair. She states she struck her head, denies LOC. She also complains of right hip pain and right forearm pain secondary to her fall. No headache, blurred vision, numbness or tingling. No chest pain, shortness of breath, or palpitations prior to fall. Patient is a poor historian and unable to provide remainder of history. <Savanah Rollins - Last Filed: 06/19/17 01:51> <Elena Lucero - Last Filed: 06/19/17 02:36> - General Chief Complaint: Injury Stated Complaint: FALL Time Seen by Provider: 06/18/17 22:15 Past History <Savanah Rollins - Last Filed: 06/19/17 01:51> - Past Medical History Anemia: Yes Asthma: Yes Cancer: No Cardiac Disorders: Yes (chest pain, CAD, [place] x3) CVA: Yes (CVA x3, TIA, left sided residual) COPD: No CHF: No DVT: No Dementia: No Diabetes: Yes GI Disorders: Yes (PEPTIC ULCER) Disorders: No HTN: Yes Hypercholesterolemia: Yes Liver Disease: No Psychiatric Problems: Yes (BIPOLAR, POST TRAMATIC STRESS) Seizures: No Thyroid Disease: No - Surgical History Abdominal Surgery: Yes Appendectomy: No Cardiac Surgery: No Cholecystectomy: No Lung Surgery: No Neurologic Surgery: No Orthopedic Surgery: Yes - Immunization History Immunization Up to Date: No - Suicide/Smoking/Psychosocial Hx Smoking Status: Yes Smoking History: Never smoked Have you smoked in the past 12 months: Yes Number of Cigarettes Smoked Daily: 1 If you are a former smoker, when did you quit?: 09/18/2014 Cigars Per Day: 20 Information on smoking cessation initiated: No 'Breaking Loose' booklet given: 10/30/14 Hx Alcohol Use: No Drug/Substance Use Hx: No Substance Use Type: None Hx Substance Use Treatment: Yes <Elena Lucero - Last Filed: 06/19/17 02:36> - Past Medical History Allergies/Adverse Reactions: Allergies Allergy/AdvReac Type Severity Reaction Status Date / Time hydromorphone HCl Allergy Intermediate Itching Verified 06/18/17 22:13 [From Dilaudid] amoxicillin [Amoxicillin] Allergy Verified 06/18/17 22:13 ampicillin Allergy Verified 06/18/17 22:13 aspirin Allergy Difficulty Verified 06/18/17 22:13 Breathing cranberry Allergy Rash Verified 06/18/17 22:13 doxycycline Allergy Rash Verified 06/18/17 22:13 Fish Containing Products Allergy Difficulty Verified 06/18/17 22:13 Breathing haloperidol [From Haldol] Allergy Rash Verified 06/18/17 22:13 haloperidol lactate Allergy Rash Verified 06/18/17 22:13 [From Haldol] ibuprofen [From Motrin] Allergy Difficulty Verified 06/18/17 22:13 Breathing ketorolac tromethamine Allergy Rash Verified 06/18/17 22:13 [From Toradol] levofloxacin [From Levaquin] Allergy Rash Verified 06/18/17 22:13 milk Allergy Difficulty Verified 06/18/17 22:13 Breathing oxycodone HCl [From Percocet] Allergy Rash Verified 06/18/17 22:13 Penicillins Allergy Difficulty Verified 06/18/17 22:13 Breathing sulfamethoxazole Allergy Rash Verified 06/18/17 22:13 [From Bactrim] trimethoprim [From Bactrim] Allergy Verified 06/18/17 22:13 warfarin sodium Allergy Verified 06/18/17 22:13 [From Coumadin] Gravy Allergy Unknown Uncoded 06/18/17 22:13 Cranberry/Cranberry juice Allergy Uncoded 06/18/17 22:13 raw tomato Allergy Uncoded 06/18/17 22:13 Home Medications: Ambulatory Orders Albuterol Sulfate Inhaler - [Ventolin Hfa Inhaler -] 1 inh PO Q4H PRN 06/15/17 Apixaban [Eliquis] 5 mg PO BID 06/15/17 Benztropine Mesylate 1 mg PO DAILY 06/15/17 Bupropion HCl [Bupropion Xl] 300 mg PO DAILY 06/15/17 Clonazepam 1 mg PO Q12H 06/15/17 Divalproex [Depakote -] 750 mg PO BID 06/15/17 Ferrous Sulfate 325 mg PO DAILY 06/15/17 Fluoxetine HCl 20 mg PO DAILY 06/15/17 Furosemide [Lasix] 40 mg PO DAILY 06/15/17 Gabapentin 300 mg PO TID 06/15/17 Insulin Aspart [Novolog] 10 unit SQ TID 06/15/17 Levothyroxine [Synthroid -] 50 mcg PO DAILY 06/15/17 Metformin HCl 500 mg PO BID 06/15/17 Nitroglycerin Sublingual [Nitrostat -] 0.6 mg SL PRN PRN 06/15/17 Pantoprazole Sodium [Protonix] 40 mg PO DAILY 06/15/17 Polyethylene Glycol 3350 [Clearlax] 17 gm PO DAILY 06/15/17 Quetiapine Fumarate [Seroquel] 400 mg PO HS 06/15/17 Sennosides/Docusate Sodium [Senna Laxative Tablet] 1 each PO DAILY 06/15/17 Simvastatin 40 mg PO HS 06/15/17 Tizanidine HCl 2 mg PO Q8H PRN 06/15/17 Review of Systems - Review of Systems Able to Perform ROS?: Yes Comments:: 06/18/17 23:32 CONSTITUTIONAL: Absent: fever, chills, diaphoresis, generalized weakness, malaise, loss of appetite HEENT: Absent: rhinorrhea, nasal congestion, throat pain, throat swelling, difficulty swallowing, mouth swelling, ear pain, eye pain, visual Changes CARDIOVASCULAR: Absent: chest pain, syncope, palpitations, irregular heart rate, lightheadedness , peripheral edema RESPIRATORY: Absent: cough, shortness of breath, dyspnea with exertion, orthopnea, wheezing, stridor, hemoptysis GASTROINTESTINAL: Absent: abdominal pain, abdominal distension, nausea, vomiting, diarrhea, constipation, melena, hematochezia GENITOURINARY: Absent: dysuria, frequency, urgency, hesitancy, hematuria, flank pain, genital pain MUSCULOSKELETAL: Present: right forearm pain, right hip pain Absent: joint swelling SKIN: Absent: rash, itching, pallor HEMATOLOGIC/IMMUNOLOGIC: Absent: easy bleeding, easy bruising, lymphadenopathy, frequent infections ENDOCRINE: Absent: unexplained weight gain, unexplained weight loss, heat intolerance, cold intolerance NEUROLOGIC: Absent: headache, focal weakness or paresthesias, dizziness, unsteady gait, seizure, mental status changes, bladder or bowel incontinence PSYCHIATRIC: Absent: anxiety, depression, suicidal or homicidal ideation, hallucinations. <Savanah Rollins - Last Filed: 06/19/17 01:51> *Physical Exam - Vital Signs Last Vital Signs Temp Pulse Resp BP Pulse Ox 98 F 68 18 113/60 98 06/18/17 22:16 06/18/17 22:16 06/18/17 22:16 06/18/17 22:16 06/18/17 22:16 - Physical Exam Comments: 06/18/17 23:33 GENERAL: Well developed, obese. Awake and alert. No acute distress. HEENT: Normocephalic, atraumatic. No laceations or abrasions to scalp or face. No raccoon eyes. PERRLA, EOMI. No conjunctival pallor. Sclera are non-icteric. Moist mucous membranes. Oropharynx is clear. NECK: Supple. Full ROM. No JVD. Carotid pulses 2+ and symmetric, without bruits. No thyromegaly. No lymphadenopathy. No cervical tenderness. CARDIOVASCULAR: Regular rate and rhythm. No murmurs, rubs, or gallops. Distal pulses are 2+ and symmetric. PULMONARY: No evidence of respiratory distress. Lungs clear to auscultation bilaterally. No wheezing, rales or rhonchi. ABDOMINAL: Soft. Non-tender. Non-distended. No rebound or guarding. No organomegaly. Normoactive bowel sounds. MUSCULOSKELETAL +Diffusely tender right hip. Normal range of motion at all joints. No bony deformities or tenderness. No CVA tenderness. EXTREMITIES: Bilateral knee swelling, no significant pitting lower extremity edema. No cyanosis. No clubbing. No calf tenderness. SKIN: +Mild abrasion to right forearm. Warm and dry. Normal capillary refill. No rashes. No jaundice. NEUROLOGICAL: Alert, awake, appropriate. Cranial nerves 2-12 intact. No deficits to light touch and temperature in face, upper extremities and lower extremities. No motor deficits in the in face, upper extremities and lower extremities. Normoreflexic in the upper and lower extremities. Normal speech. Gait deferred <Savanah Rollins - Last Filed: 06/19/17 01:51> - Vital Signs Last Vital Signs Temp Pulse Resp BP Pulse Ox 98 F 68 18 113/60 98 06/18/17 22:16 06/18/17 22:16 06/18/17 22:16 06/18/17 22:16 06/18/17 22:16 <Elena Lucero - Last Filed: 06/19/17 02:36> ED Treatment Course - RADIOLOGY Radiograph Interpretation: 06/19/17 00:32 EXAM: CT HEAD WITHOUT CONTRAST Preliminary reading by Imaging Travel Insurance Agent No acute brain parenchymal abnormality. No hemorrhage, mass or acute territorial infarct. No skull fracture. Clear visualized paranasal sinuses. Visualized mastoid air cells clear. THIS DOCUMENT HAS BEEN ELECTRONICALLY SIGNED Rosangela Garcia M.D. 06/19/17 01:51 My preliminary interpretation of the patient's R arm and R hip x-rays show no evidence of acute fracture or dislocation. Official read pending. <Savanah Rollins - Last Filed: 06/19/17 01:51> *DC/Admit/Observation/Transfer - Attestations Scribe Attestion: 06/18/17 23:37 Documentation prepared by Savanah Rollins, acting as medical typist for Elena Lucero MD. <Savanah Rollins - Last Filed: 06/19/17 01:51> <Elena Lucero - Last Filed: 06/19/17 02:36> Diagnosis at time of Disposition: Morbid obesity Knee pain Qualifiers: Chronicity: acute Laterality: right Qualified Code(s): M25.561 - Pain in right knee Head injury Qualifiers: Encounter type: initial encounter Qualified Code(s): S09.90XA - Unspecified injury of head, initial encounter Accidental fall Qualifiers: Encounter type: initial encounter Qualified Code(s): W19.XXXA - Unspecified fall, initial encounter - Discharge Dispostion Disposition: HOME Condition at time of disposition: Stable - Referrals Referrals: Carter Russell [Primary Care Provider] - - Patient Instructions Printed Discharge Instructions: DI for Closed Head Injury Additional Instructions: please continue your regular medications - Post Discharge Activity
== END 2017-06-19 05:15 | disposition home or self-care (01) ==
LOC: JER 21:36
DX: S09.8XXA Other specified injuries of head, initial encounter (principal); M25.561 Pain in right knee; W05.0XXA Fall from non-moving wheelchair, initial encounter; Y93.89 Activity, other specified; Y92.122 Bedroom in nursing home as the place of occurrence of the external cause; Y99.8 Other external cause status; E66.01 Morbid (severe) obesity due to excess calories; Z68.41 Body mass index [BMI] 40.0-44.9, adult; I10 Essential (primary) hypertension; E11.9 Type 2 diabetes mellitus without complications; Z79.4 Long term (current) use of insulin; E78.00 Pure hypercholesterolemia, unspecified; F31.9 Bipolar disorder, unspecified; F43.10 Post-traumatic stress disorder, unspecified; I69.854 Hemiplegia and hemiparesis following other cerebrovascular disease affecting left non-dominant side; Z87.891 Personal history of nicotine dependence
CPT/HCPCS: 70450-TC; 73090-TC-RT; 73523-TC; 73562-TC-RT; 99281-25

== ENCOUNTER 2017-06-21 22:02 | Inpatient (IN) | payer OTHER ==
--- NOTE | 2017-06-21 22:06 | PDOC ---
History of Present Illness - History of Present Illness Initial Comments: 06/21/17 23:34 The patient is a 51 year old female with history of hypertension, hyperlipidemia , DM, hypothyroidism, CAD, vertigo, schizoaffective disorder, sent from [facility] for possible stroke. Patient reports left sided weakness/numbness around 9:20 pm. Patient has a history of strokes in the past. Patient also reports right hip pain that radiates down her leg. Patient was here a couple of days ago for a fall that affected her right hip and forearm previously. No headache, blurred vision, numbness or tingling. No chest pain, shortness of breath, or palpitations. Patient is a poor historian and unable to provide remainder of history. <Gisela Cavanaugh - Last Filed: 06/21/17 23:41> <Mckenna Swan - Last Filed: 06/22/17 02:51> - General Stated Complaint: POSSIBLE STROKE Time Seen by Provider: 06/21/17 22:05 Past History <Gisela Cavanaugh - Last Filed: 06/21/17 23:41> - Past Medical History Anemia: Yes Asthma: Yes Cancer: No Cardiac Disorders: Yes (chest pain, CAD, [place] x3) CVA: Yes (CVA x3, TIA, left sided residual) COPD: No CHF: No DVT: No Dementia: No Diabetes: Yes GI Disorders: Yes (PEPTIC ULCER) Disorders: No HTN: Yes Hypercholesterolemia: Yes Liver Disease: No Psychiatric Problems: Yes (BIPOLAR, POST TRAMATIC STRESS) Seizures: No Thyroid Disease: No - Surgical History Abdominal Surgery: Yes Appendectomy: No Cardiac Surgery: No Cholecystectomy: No Lung Surgery: No Neurologic Surgery: No Orthopedic Surgery: Yes - Immunization History Immunization Up to Date: No - Suicide/Smoking/Psychosocial Hx Smoking Status: Yes Smoking History: Never smoked Have you smoked in the past 12 months: Yes Number of Cigarettes Smoked Daily: 1 If you are a former smoker, when did you quit?: 09/18/2014 Cigars Per Day: 20 'Breaking Loose' booklet given: 10/30/14 Hx Alcohol Use: No Drug/Substance Use Hx: No Substance Use Type: None Hx Substance Use Treatment: Yes <Mckenna Swan - Last Filed: 06/22/17 02:51> - Past Medical History Allergies/Adverse Reactions: Allergies Allergy/AdvReac Type Severity Reaction Status Date / Time hydromorphone HCl Allergy Intermediate Itching Verified 06/21/17 23:10 [From Dilaudid] amoxicillin [Amoxicillin] Allergy Verified 06/21/17 23:10 ampicillin Allergy Verified 06/21/17 23:10 aspirin Allergy Difficulty Verified 06/21/17 23:10 Breathing cranberry Allergy Rash Verified 06/21/17 23:10 doxycycline Allergy Rash Verified 06/21/17 23:10 Fish Containing Products Allergy Difficulty Verified 06/21/17 23:10 Breathing haloperidol [From Haldol] Allergy Rash Verified 06/21/17 23:10 haloperidol lactate Allergy Rash Verified 06/21/17 23:10 [From Haldol] ibuprofen [From Motrin] Allergy Difficulty Verified 06/21/17 23:10 Breathing ketorolac tromethamine Allergy Rash Verified 06/21/17 23:10 [From Toradol] levofloxacin [From Levaquin] Allergy Rash Verified 06/21/17 23:10 milk Allergy Difficulty Verified 06/21/17 23:10 Breathing oxycodone HCl [From Percocet] Allergy Rash Verified 06/21/17 23:10 Penicillins Allergy Difficulty Verified 06/21/17 23:10 Breathing sulfamethoxazole Allergy Rash Verified 06/21/17 23:10 [From Bactrim] trimethoprim [From Bactrim] Allergy Verified 06/21/17 23:10 warfarin sodium Allergy Verified 06/21/17 23:10 [From Coumadin] Gravy Allergy Unknown Uncoded 06/21/17 23:10 Cranberry/Cranberry juice Allergy Uncoded 06/21/17 23:10 raw tomato Allergy Uncoded 06/21/17 23:10 Home Medications: Ambulatory Orders Albuterol Sulfate Inhaler - [Ventolin Hfa Inhaler -] 1 inh PO Q4H PRN 06/15/17 Apixaban [Eliquis] 5 mg PO BID 06/15/17 Benztropine Mesylate 1 mg PO DAILY 06/15/17 Bupropion HCl [Bupropion Xl] 300 mg PO DAILY 06/15/17 Clonazepam 1 mg PO Q12H 06/15/17 Divalproex [Depakote -] 750 mg PO BID 06/15/17 Ferrous Sulfate 325 mg PO DAILY 06/15/17 Fluoxetine HCl 20 mg PO DAILY 06/15/17 Furosemide [Lasix] 40 mg PO DAILY 06/15/17 Gabapentin 300 mg PO TID 06/15/17 Insulin Aspart [Novolog] 10 unit SQ TID 06/15/17 Levothyroxine [Synthroid -] 50 mcg PO DAILY 06/15/17 Metformin HCl 500 mg PO BID 06/15/17 Nitroglycerin Sublingual [Nitrostat -] 0.6 mg SL PRN PRN 06/15/17 Pantoprazole Sodium [Protonix] 40 mg PO DAILY 06/15/17 Polyethylene Glycol 3350 [Clearlax] 17 gm PO DAILY 06/15/17 Quetiapine Fumarate [Seroquel] 400 mg PO HS 06/15/17 Sennosides/Docusate Sodium [Senna Laxative Tablet] 1 each PO DAILY 06/15/17 Simvastatin 40 mg PO HS 06/15/17 Tizanidine HCl 2 mg PO Q8H PRN 06/15/17 Review of Systems - Review of Systems Comments:: 06/21/17 23:35 GENERAL/CONSTITUTIONAL: No fever or chills. HEAD, EYES, EARS, NOSE AND THROAT: No change in vision. No ear pain or discharge. No sore throat. CARDIOVASCULAR: No chest pain or shortness of breath. RESPIRATORY: No cough, wheezing, or hemoptysis. GASTROINTESTINAL: No nausea, vomiting, diarrhea or constipation. GENITOURINARY: No dysuria, frequency, or change in urination. MUSCULOSKELETAL: +right leg and hip pain. No neck or back pain. SKIN: No rash NEUROLOGIC: No headache, vertigo, loss of consciousness. +left sided weakness and numbness. ENDOCRINE: No increased thirst. No abnormal weight change. HEMATOLOGIC/LYMPHATIC: No anemia, easy bleeding, or history of blood clots. ALLERGIC/IMMUNOLOGIC: No hives or skin allergy. <Gisela Cavanaugh - Last Filed: 06/21/17 23:41> *Physical Exam - Vital Signs Last Vital Signs Temp Pulse Resp BP Pulse Ox 99.1 F 83 18 112/64 98 06/21/17 23:04 06/21/17 23:04 06/21/17 23:04 06/21/17 23:04 06/21/17 23:04 - Physical Exam Comments: 06/21/17 23:36 GENERAL: Awake, alert, and fully oriented, in no acute distress HEAD: No signs of trauma EYES: PERRLA, EOMI, sclera anicteric, conjunctiva clear ENT: Auricles normal inspection, hearing grossly normal, nares patent, oropharynx clear without exudates. Moist mucosa NECK: Normal ROM, supple, no lymphadenopathy, JVD, or masses LUNGS: Breath sounds equal, clear to auscultation bilaterally. No wheezes, and no crackles HEART: Regular rate and rhythm, normal S1 and S2, no murmurs, rubs or gallops ABDOMEN: Soft, nontender, normoactive bowel sounds. No guarding, no rebound. No masses EXTREMITIES: Patient oringinally unable to move left side of body.(SEE NOTE ON BOTTOM) Normal range of motion, no edema. No clubbing or cyanosis. No cords, erythema, or tenderness NEUROLOGICAL: Cranial nerves II through XII grossly intact. Normal speech, normal gait SKIN: Warm, Dry, normal turgor, no rashes or lesions noted. Patient is moving left side with right arm. When we walked in on her while having and EKG done, she reflexively moved her left arm . EKG normal, BP normal, blood is normal. 06/21/17 23:41 <Gisela Cavanaugh - Last Filed: 06/21/17 23:41> NIH Stroke Scale - Last Known Well Date/Time & Onset Date Last Known Well: 06/21/17 Time Last Known Well: 20:00 - Initial Evaluation Level of consciousness: Alert Ask patient the month and their age: Answers both correctly Ask patient to open & close eyes; make fist and let go: Obeys both correctly Best gaze (horizontal eye movement): Normal Visual field testing: No visual field loss Facial paresis (Show teeth/raise eyebrows/close eyes tight): Minor paralysis ( flattened nasolabial fold, asymmetry on smiling) Motor Function: Left Arm: Some effort against gravity Motor Function: Right Arm: Normal (extends arm 90 (or 45) degrees for 10 seconds without drift Motor Function: Left Leg: Some effort against gravity Motor Function: Right Leg: Normal (extends leg 30 degrees for 5 seconds without drift) Limb Ataxia: No ataxia Sensory(Use pinprick test arms,legs,trunk,face/side to side): Mild to moderate decrease in sensation Best language (Describe picture, name items, read sentences): No Aphasia Dysarthria (read several words): Normal articulation Extinction and Inattention: No abnormality - Total Score NIH Stroke Scale Score: 6 <Mckenna Swan - Last Filed: 06/22/17 02:51> Discharge Disposition <Gisela Cavanaugh - Last Filed: 06/21/17 23:41> - Discharge Dispostion Admit: Yes <Mckenna Swan - Last Filed: 06/22/17 02:51> - Diagnosis Bipolar disorder, Hyperlipidemia, Cerebrovascular accident (CVA) - Discharge Dispostion Condition at time of disposition: Guarded
[2017-06-21 23:10] VITALS: BMI 37.6
[2017-06-21 23:10] LABS: HEMATOCRIT 31.8 % (32.4-45.2); LYMPH % 23.2 % (8-40); MCH 28.8 pg (25.7-33.7); MCHC 34.6 g/dl (32.0-36.0); MEAN CELL VOLUME 83.3 fl (80-96); MEAN PLT VOLUME 9.9 fl (7.5-11.1); NEUT % 65.8 % (42.8-82.8); PLATELET COUNT 205 K/MM3 (134-434); RBC 3.82 M/mm3 (3.60-5.2); RDW 15.1 % (11.6-15.6); WHITE BLOOD COUNT 8.6 K/mm3 (4.0-10.0)
[2017-06-21] MEDS ORDERED: morphine CARPU-JECT 2 MG/1 ML DISP.SYRIN IVPUSH ONE (23:11)
[2017-06-21 23:26] LABS: INR 1.04 (0.82-1.09); PROTHROMBIN TIME (PATIENT) 11.7 SEC (9.98-11.88)
[2017-06-21] MEDS ORDERED: morphine CARPU-JECT 10 MG/1 ML DISP.SYRIN ONE (23:34)
[2017-06-22 00:25] LABS: ALBUMIN 3.3 g/dl (3.4-5.0); ANION GAP 7 (8-16); BILIRUBIN,TOTAL 0.3 mg/dL (0.2-1.0); BLOOD UREA NITROGEN 32 mg/dL (7-18); CALCIUM 8.5 mg/dL (8.5-10.1); CHLORIDE 102 mmol/L (98-107); CO2 32 mmol/L (21-32); CREATININE 1.3 mg/dL (0.55-1.02); GLUCOSE,RANDOM 89 mg/dL (74-106); SGPT/ALT 22 U/L (12-78); SODIUM 141 mmol/L (136-145); TOT PROT 7.3 g/dl (6.4-8.2)
[2017-06-22 00:27] LABS: ALK PHOS 120 U/L (45-117)
[2017-06-22 00:28] LABS: POTASSIUM 4.5 mmol/L (3.5-5.1); SGOT/AST 30 U/L (15-37)
[2017-06-22 10:49] LABS: BASO % 0.6 % (0-2.0); EOS % 1.7 % (0-4.5); HEMATOCRIT 38.6 % (32.4-45.2); HEMOGLOBIN 12.8 GM/dL (10.7-15.3); LYMPH % 18.8 % (8-40); MCH 27.7 pg (25.7-33.7); MCHC 33.1 g/dl (32.0-36.0); MEAN CELL VOLUME 83.9 fl (80-96); MEAN PLT VOLUME 10.1 fl (7.5-11.1); MONO % 4.3 % (3.8-10.2); NEUT % 74.6 % (42.8-82.8); PLATELET COUNT 206 K/MM3 (134-434); RBC 4.61 M/mm3 (3.60-5.2); RDW 15.3 % (11.6-15.6); WHITE BLOOD COUNT 8.6 K/mm3 (4.0-10.0)
[2017-06-22 11:00] LABS: ANION GAP 6 (8-16); BLOOD UREA NITROGEN 30 mg/dL (7-18); CALCIUM 8.9 mg/dL (8.5-10.1); CHLORIDE 102 mmol/L (98-107); CO2 31 mmol/L (21-32); CREATININE 1.1 mg/dL (0.55-1.02); GLUCOSE,RANDOM 95 mg/dL (74-106); POTASSIUM 4.1 mmol/L (3.5-5.1); SODIUM 139 mmol/L (136-145)
[2017-06-22] MEDS ORDERED: traMADol HCL 50 MG TABLET ONE (13:23)
[2017-06-22] MEDS ORDERED: GABAPENTIN 100 MG CAPSULE (FP) ONE (13:23)
--- NOTE | 2017-06-22 14:16 | CONSULT ---
Consult - text type - Consultation Consultation Note: Neurology History of Present Illness The patient is a 51 year old female with history of hypertension, hyperlipidemia , DM, hypothyroidism, CAD, vertigo, schizoaffective disorder, sent from [facility] for possible stroke. Patient reports left sided weakness/numbness around 9:20 pm. Patient has a history of questionable similar eventss in the past. MRI brain in March was negative. I was contacted and she was considered for TPA but symptoms rapidly improved and there was question of conversion disorder given psych history and patient moving extremties. Also noted patient on Eliquis which was not mentioned overnight. Admitted for MRI brain. Past History - Past Medical History Anemia: Yes Asthma: Yes Cancer: No Cardiac Disorders: Yes (chest pain, CAD, [place] x3) CVA: Yes (CVA x3, TIA, left sided residual) COPD: No CHF: No DVT: No Dementia: No Diabetes: Yes GI Disorders: Yes (PEPTIC ULCER) Disorders: No HTN: Yes Hypercholesterolemia: Yes Liver Disease: No Psychiatric Problems: Yes (BIPOLAR, POST TRAMATIC STRESS) Seizures: No Thyroid Disease: No - Surgical History Abdominal Surgery: Yes Appendectomy: No Cardiac Surgery: No Cholecystectomy: No Lung Surgery: No Neurologic Surgery: No Orthopedic Surgery: Yes - Immunization History Immunization Up to Date: No - Suicide/Smoking/Psychosocial Hx Smoking Status: Yes Smoking History: Never smoked Have you smoked in the past 12 months: Yes Number of Cigarettes Smoked Daily: 1 If you are a former smoker, when did you quit?: 09/18/2014 Cigars Per Day: 20 'Breaking Loose' booklet given: 10/30/14 Hx Alcohol Use: No Drug/Substance Use Hx: No Substance Use Type: None Hx Substance Use Treatment: Yes - Past Medical History Allergies/Adverse Reactions: Allergies Allergy/AdvReac Type Severity Reaction Status Date / Time hydromorphone HCl Allergy Intermediate Itching Verified 06/21/17 23:10 [From Dilaudid] amoxicillin [Amoxicillin] Allergy Verified 06/21/17 23:10 ampicillin Allergy Verified 06/21/17 23:10 aspirin Allergy Difficulty Verified 06/21/17 23:10 Breathing cranberry Allergy Rash Verified 06/21/17 23:10 doxycycline Allergy Rash Verified 06/21/17 23:10 Fish Containing Products Allergy Difficulty Verified 06/21/17 23:10 Breathing haloperidol [From Haldol] Allergy Rash Verified 06/21/17 23:10 haloperidol lactate Allergy Rash Verified 06/21/17 23:10 [From Haldol] ibuprofen [From Motrin] Allergy Difficulty Verified 06/21/17 23:10 Breathing ketorolac tromethamine Allergy Rash Verified 06/21/17 23:10 [From Toradol] levofloxacin [From Levaquin] Allergy Rash Verified 06/21/17 23:10 milk Allergy Difficulty Verified 06/21/17 23:10 Breathing oxycodone HCl [From Percocet] Allergy Rash Verified 06/21/17 23:10 Penicillins Allergy Difficulty Verified 06/21/17 23:10 Breathing sulfamethoxazole Allergy Rash Verified 06/21/17 23:10 [From Bactrim] trimethoprim [From Bactrim] Allergy Verified 06/21/17 23:10 warfarin sodium Allergy Verified 06/21/17 23:10 [From Coumadin] Gravy Allergy Unknown Uncoded 06/21/17 23:10 Cranberry/Cranberry juice Allergy Uncoded 06/21/17 23:10 raw tomato Allergy Uncoded 06/21/17 23:10 Home Medications: Ambulatory Orders Albuterol Sulfate Inhaler - [Ventolin Hfa Inhaler -] 1 inh PO Q4H PRN 06/15/17 Apixaban [Eliquis] 5 mg PO BID 06/15/17 Benztropine Mesylate 1 mg PO DAILY 06/15/17 Bupropion HCl [Bupropion Xl] 300 mg PO DAILY 06/15/17 Clonazepam 1 mg PO Q12H 06/15/17 Divalproex [Depakote -] 750 mg PO BID 06/15/17 Ferrous Sulfate 325 mg PO DAILY 06/15/17 Fluoxetine HCl 20 mg PO DAILY 06/15/17 Furosemide [Lasix] 40 mg PO DAILY 06/15/17 Gabapentin 300 mg PO TID 06/15/17 Insulin Aspart [Novolog] 10 unit SQ TID 06/15/17 Levothyroxine [Synthroid -] 50 mcg PO DAILY 06/15/17 Metformin HCl 500 mg PO BID 06/15/17 Nitroglycerin Sublingual [Nitrostat -] 0.6 mg SL PRN PRN 06/15/17 Pantoprazole Sodium [Protonix] 40 mg PO DAILY 06/15/17 Polyethylene Glycol 3350 [Clearlax] 17 gm PO DAILY 06/15/17 Quetiapine Fumarate [Seroquel] 400 mg PO HS 06/15/17 Sennosides/Docusate Sodium [Senna Laxative Tablet] 1 each PO DAILY 06/15/17 Simvastatin 40 mg PO HS 06/15/17 Tizanidine HCl 2 mg PO Q8H PRN 06/15/17 Review of Systems GENERAL/CONSTITUTIONAL: No fever or chills. HEAD, EYES, EARS, NOSE AND THROAT: No change in vision. No ear pain or discharge. No sore throat. CARDIOVASCULAR: No chest pain or shortness of breath. RESPIRATORY: No cough, wheezing, or hemoptysis. GASTROINTESTINAL: No nausea, vomiting, diarrhea or constipation. GENITOURINARY: No dysuria, frequency, or change in urination. MUSCULOSKELETAL: +right leg and hip pain. No neck or back pain. SKIN: No rash NEUROLOGIC: No headache, vertigo, loss of consciousness. +left sided weakness and numbness. ENDOCRINE: No increased thirst. No abnormal weight change. HEMATOLOGIC/LYMPHATIC: No anemia, easy bleeding, or history of blood clots. ALLERGIC/IMMUNOLOGIC: No hives or skin allergy. *Physical Exam Vital Signs Temperature 99.1 F 06/21/17 23:04 Pulse Rate 76 06/22/17 11:59 Respiratory Rate 18 06/22/17 01:39 Blood Pressure 115/53 06/22/17 11:59 O2 Sat by Pulse Oximetry (%) 100 06/22/17 11:59 GENERAL: Awake, alert, and fully oriented, in no acute distress HEAD: No signs of trauma EYES: PERRLA, EOMI, sclera anicteric, conjunctiva clear ENT: Auricles normal inspection, hearing grossly normal, nares patent, oropharynx clear without exudates. Moist mucosa NECK: Normal ROM, supple, no lymphadenopathy, JVD, or masses LUNGS: Breath sounds equal, clear to auscultation bilaterally. No wheezes, and no crackles HEART: Regular rate and rhythm, normal S1 and S2, no murmurs, rubs or gallops ABDOMEN: Soft, nontender, normoactive bowel sounds. No guarding, no rebound. No masses EXTREMITIES: Patient oringinally unable to move left side of body.(SEE NOTE ON BOTTOM) Normal range of motion, no edema. No clubbing or cyanosis. No cords, erythema, or tenderness NEUROLOGICAL: Speech disturbance noted, moving b/l extremities, giveway weakness on L, sensory intact SKIN: Warm, Dry, normal turgor, no rashes or lesions noted. CBCD WBC 8.6 K/mm3 (4.0-10.0) 06/22/17 09:51 RBC 4.61 M/mm3 (3.60-5.2) D 06/22/17 09:51 Hgb 12.8 GM/dL (10.7-15.3) D 06/22/17 09:51 Hct 38.6 % (32.4-45.2) D 06/22/17 09:51 MCV 83.9 fl (80-96) 06/22/17 09:51 MCHC 33.1 g/dl (32.0-36.0) 06/22/17 09:51 RDW 15.3 % (11.6-15.6) 06/22/17 09:51 Plt Count 206 K/MM3 (134-434) 06/22/17 09:51 MPV 10.1 fl (7.5-11.1) 06/22/17 09:51 CMP Sodium 139 mmol/L (136-145) 06/22/17 09:51 Potassium 4.1 mmol/L (3.5-5.1) 06/22/17 09:51 Chloride 102 mmol/L (98-107) 06/22/17 09:51 Carbon Dioxide 31 mmol/L (21-32) 06/22/17 09:51 Anion Gap 6 (8-16) L 06/22/17 09:51 BUN 30 mg/dL (7-18) H 06/22/17 09:51 Creatinine 1.1 mg/dL (0.55-1.02) H 06/22/17 09:51 Creat Clearance w eGFR 43.36 (>60) 06/21/17 22:55 Calcium 8.9 mg/dL (8.5-10.1) 06/22/17 09:51 Total Bilirubin 0.3 mg/dL (0.2-1.0) D 06/21/17 22:55 AST 30 U/L (15-37) 06/21/17 22:55 ALT 22 U/L (12-78) 06/21/17 22:55 Alkaline Phosphatase 120 U/L (45-117) H 06/21/17 22:55 Total Protein 7.3 g/dl (6.4-8.2) 06/21/17 22:55 Albumin 3.3 g/dl (3.4-5.0) L 06/21/17 22:55 CT head reviewed PLan: 51 year old female with history of hypertension, hyperlipidemia, DM, hypothyroidism, CAD, vertigo, schizoaffective disorder, sent from [facility] for possible stroke. Patient reports left sided weakness/numbness around 9:20 pm. Patient has a history of questionable similar eventss in the past. MRI brain in March was negative. I was contacted and she was considered for TPA but symptoms rapidly improved and there was question of conversion disorder given psych history and patient moving extremties. Admitted for MRI brain. IF demonstrates CVA, then can consider futher carotid/echo. Monitor Bp, maintain normotensive range. Telemetry monitoring. IF continuting AC, then would not add antiplatelet due to bleed risk. Physical therapy. Fall precautions. Has been irritable, given psych history would monitor closely.
[2017-06-22] MEDS ORDERED: traMADol HCL 50 MG TABLET PO ONE (14:18)
[2017-06-22] MEDS ORDERED: GABAPENTIN 300 MG CAPSULE (FP) PO ONE (14:18)
[2017-06-22] MEDS ORDERED: TIZANIDINE HCL 2 MG TABLET PO PRN (14:44)
[2017-06-22] MEDS ORDERED: traMADol HCL 50 MG TABLET PO PRN (14:46)
[2017-06-22] MEDS: GABAPENTIN 300 MG CAPSULE (FP) PO SCH ×2 (14:58→22:08)
[2017-06-22] MEDS: BENZTROPINE MESYLATE 1 MG TABLET (FP) PO SCH (16:14)
[2017-06-22] MEDS: clonazePAM 0.5 MG TABLET PO SCH ×2 (16:14→22:08)
[2017-06-22] MEDS: FUROSEMIDE 40 MG TABLET (FP) PO SCH (16:14)
[2017-06-22] MEDS: PANTOPRAZOLE 40 MG TABLET (FP) PO SCH (16:15)
[2017-06-22] MEDS: POLYETHYLENE GLYCOL 3350 119 GM BTL PO SCH (16:15)
[2017-06-22] MEDS: FLUoxetine HCL 20 MG CAPSULE (FP) PO SCH (16:15)
[2017-06-22] MEDS: Insulin (LOG) Aspart 100 UNITS/ML VIAL SQ SCH (19:30)
[2017-06-22] MEDS: DIVALPROEX SODIUM 250 MG TABLET E.C. (FP) PO SCH (21:51)
[2017-06-22] MEDS: ATORVASTATIN CA 20 MG TABLET (FP) PO SCH (21:51)
[2017-06-22] MEDS: APIXABAN 5 MG TABLET PO SCH (21:51)
[2017-06-22] MEDS ORDERED: QUEtiapine FUMARATE 400 MG TABLET PO SCH (22:00)
--- NOTE | 2017-06-22 22:35 | HP ---
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 No: Alzheimer's, Dementia, Multiple Sclerosis, Peripheral Neuropathy, Parkinson's, Seizure, Syncope, Vertigo, Other Cardiovascular: Yes: CAD, HTN, Hyperlipdemia, CT (x3 per pt) Pulmonary: Yes: Asthma, Sleep Apnea. No: Bronchitis, Cancer, COPD, O2 Dependent , Pneumonia, Previously Intubated, Pulmonary Embolus, Pulmonary Fibrosis, Other Gastrointestinal: Yes: Peptic Ulcer Disease. No: Ascites, Cancer, Constipation , Crohn's Disease, Diverticulitis, Diverticulosis, Esophageal Varices, Gastritis , GERD, GI Bleed, Hemorrhoids, Hiatal Hernia, Inflamatory Bowel Disease, Irritable Bowel Disease, Pancreatitis, Ulcerative Colitis, Other Psych: Yes: Addictions (cocaine abuse in past, clean since 2012), Depression, Other (Bipolar disorder) Musculoskeletal: Yes: Chronic low back pain Endocrine: Yes: Diabetes Mellitus, Other (Morbid Obesity) - Smoking History Smoking history: Never smoked Have you smoked in the past 12 months: Yes Aproximately how many cigarettes per day: 1 If you are a former smoker, when did you quit?: 09/18/2014 - Alcohol/Substance Use Hx Alcohol Use: No History of Substance Use: reports: Cocaine - Social History Usual Living Arrangement: Yes: Prison History of Recent Travel: No Home Medications - Allergies Allergies/Adverse Reactions: Allergies Allergy/AdvReac Type Severity Reaction Status Date / Time hydromorphone HCl Allergy Intermediate Itching Verified 06/21/17 23:10 [From Dilaudid] amoxicillin [Amoxicillin] Allergy Verified 06/21/17 23:10 ampicillin Allergy Verified 06/21/17 23:10 aspirin Allergy Difficulty Verified 06/21/17 23:10 Breathing cranberry Allergy Rash Verified 06/21/17 23:10 doxycycline Allergy Rash Verified 06/21/17 23:10 Fish Containing Products Allergy Difficulty Verified 06/21/17 23:10 Breathing haloperidol [From Haldol] Allergy Rash Verified 06/21/17 23:10 haloperidol lactate Allergy Rash Verified 06/21/17 23:10 [From Haldol] ibuprofen [From Motrin] Allergy Difficulty Verified 06/21/17 23:10 Breathing ketorolac tromethamine Allergy Rash Verified 06/21/17 23:10 [From Toradol] levofloxacin [From Levaquin] Allergy Rash Verified 06/21/17 23:10 milk Allergy Difficulty Verified 06/21/17 23:10 Breathing oxycodone HCl [From Percocet] Allergy Rash Verified 06/21/17 23:10 Penicillins Allergy Difficulty Verified 06/21/17 23:10 Breathing sulfamethoxazole Allergy Rash Verified 06/21/17 23:10 [From Bactrim] trimethoprim [From Bactrim] Allergy Verified 06/21/17 23:10 warfarin sodium Allergy Verified 06/21/17 23:10 [From Coumadin] Gravy Allergy Unknown Uncoded 06/21/17 23:10 Cranberry/Cranberry juice Allergy Uncoded 06/21/17 23:10 raw tomato Allergy Uncoded 06/21/17 23:10 - Home Medications Home Medications: Ambulatory Orders Albuterol Sulfate Inhaler - [Ventolin Hfa Inhaler -] 1 inh PO Q4H PRN 06/15/17 Apixaban [Eliquis] 5 mg PO BID 06/15/17 Benztropine Mesylate 1 mg PO DAILY 06/15/17 Bupropion HCl [Bupropion Xl] 300 mg PO DAILY 06/15/17 Clonazepam 1 mg PO Q12H 06/15/17 Divalproex [Depakote -] 750 mg PO BID 06/15/17 Ferrous Sulfate 325 mg PO DAILY 06/15/17 Fluoxetine HCl 20 mg PO DAILY 06/15/17 Furosemide [Lasix] 40 mg PO DAILY 06/15/17 Gabapentin 300 mg PO TID 06/15/17 Insulin Aspart [Novolog] 10 unit SQ TID 06/15/17 Levothyroxine [Synthroid -] 50 mcg PO DAILY 06/15/17 Metformin HCl 500 mg PO BID 06/15/17 Nitroglycerin Sublingual [Nitrostat -] 0.6 mg SL PRN PRN 06/15/17 Pantoprazole Sodium [Protonix] 40 mg PO DAILY 06/15/17 Polyethylene Glycol 3350 [Clearlax] 17 gm PO DAILY 06/15/17 Quetiapine Fumarate [Seroquel] 400 mg PO HS 06/15/17 Sennosides/Docusate Sodium [Senna Laxative Tablet] 1 each PO DAILY 06/15/17 Simvastatin 40 mg PO HS 06/15/17 Tizanidine HCl 2 mg PO Q8H PRN 06/15/17 Review of Systems - Review of Systems Constitutional: reports: No Symptoms Eyes: reports: No Symptoms HENT: reports: No Symptoms Neck: reports: No Symptoms Cardiovascular: reports: No Symptoms Respiratory: reports: No Symptoms Gastrointestinal: reports: No Symptoms Genitourinary: reports: No Symptoms Breasts: reports: No Symptoms Reported Musculoskeletal: reports: No Symptoms Integumentary: reports: No Symptoms Neurological: reports: Change in Speech, Pre-Existing Deficit, Unsteady Gait, Weakness Endocrine: reports: No Symptoms Hematology/Lymphatic: reports: No Symptoms Psychiatric: reports: Hallucinations, Other (schizoprenia) Physical Examination Vital Signs: Vital Signs Temperature 99.1 F 06/21/17 23:04 Pulse Rate 76 06/22/17 11:59 Respiratory Rate 18 06/22/17 01:39 Blood Pressure 115/53 06/22/17 11:59 O2 Sat by Pulse Oximetry (%) 100 06/22/17 11:59 Constitutional: Yes: Well Nourished, No Distress, Obese Eyes: Yes: WNL, Conjunctiva Clear HENT: Yes: WNL Neck: Yes: WNL Cardiovascular: Yes: Regular Rate and Rhythm Respiratory: Yes: WNL Gastrointestinal: Yes: WNL, Normal Bowel Sounds, Abdomen, Obese Musculoskeletal: Yes: WNL Extremities: Yes: WNL, Pallor. No: Cold, Cool, Cyanosis, Deformity, Internal Rotation Edema: No Edema: LLE: 1+, RLE: 1+ Peripheral Pulses WNL: Yes Peripheral Pulses: Left Radial: 1+, Right Radial: 1+, Left Doralis Pedis: 1+, Right Dorsalis Pedis: 1+, Left Femoral: 1+, Right Femoral: 1+ Integumentary: Yes: WNL Neurological: Yes: WNL, Alert, Oriented ...Motor Strength: RLE (weakness) Psychiatric: Yes: WNL Labs: CBC, BMP 06/22/17 09:51 06/22/17 09:51 Problem List - Problems (1) Schizophrenia Code(s): F20.9 - SCHIZOPHRENIA, UNSPECIFIED (2) Bipolar disorder Code(s): F31.9 - BIPOLAR DISORDER, UNSPECIFIED Qualifiers: Psychotic features: without psychotic features (3) Hyperlipidemia Code(s): E78.5 - HYPERLIPIDEMIA, UNSPECIFIED Qualifiers: (4) Auditory hallucinations Code(s): R44.0 - AUDITORY HALLUCINATIONS (5) Depression Code(s): F32.9 - MAJOR DEPRESSIVE DISORDER, SINGLE EPISODE, UNSPECIFIED Qualifiers: Depression Type: unspecified Qualified Code(s): F32.9 - Major depressive disorder, single episode, unspecified (6) Inability to ambulate due to hip Code(s): R26.2 - DIFFICULTY IN WALKING, NOT ELSEWHERE CLASSIFIED (7) Bipolar 1 disorder, depressed Code(s): F31.9 - BIPOLAR DISORDER, UNSPECIFIED (8) COPD (chronic obstructive pulmonary disease) Code(s): J44.9 - CHRONIC OBSTRUCTIVE PULMONARY DISEASE, UNSPECIFIED Qualifiers: COPD type: unspecified COPD Qualified Code(s): J44.9 - Chronic obstructive pulmonary disease, unspecified (9) Chronic low back pain Code(s): M54.5 - LOW BACK PAIN; G89.29 - OTHER CHRONIC PAIN Qualifiers: Back pain laterality: unspecified (10) HTN (hypertension) Code(s): I10 - ESSENTIAL (PRIMARY) HYPERTENSION Qualifiers: Hypertension type: essential hypertension Qualified Code(s): I10 - Essential (primary) hypertension (11) Leg pain, bilateral Code(s): M79.604 - PAIN IN RIGHT LEG; M79.605 - PAIN IN LEFT LEG (12) Morbid obesity Code(s): E66.01 - MORBID (SEVERE) OBESITY DUE TO EXCESS CALORIES (13) Pelvic fracture Code(s): S32.9XXA - FRACTURE OF UNSP PARTS OF LUMBOSACRAL SPINE AND PELVIS, INIT Qualifiers: Encounter type: subsequent encounter (14) Neurological muscle weakness Code(s): M62.81 - MUSCLE WEAKNESS (GENERALIZED) Assessment/Plan assmt # c/o left sided weakness / slurred speech evaluated at ER, neurology called for possible TPA however neuro exam inconsistent / CT neg / on a/c morning after admission still in ER witnessed transferring from w/c to bed without assistance once in bed would not move her left arm
[2017-06-23] MEDS: GABAPENTIN 300 MG CAPSULE (FP) PO SCH ×3 (06:14→22:35)
[2017-06-23] MEDS: Insulin (LOG) Aspart 100 UNITS/ML VIAL SQ SCH ×2 (06:14→17:16)
[2017-06-23] MEDS: BENZTROPINE MESYLATE 1 MG TABLET (FP) PO SCH (11:17)
[2017-06-23] MEDS: FUROSEMIDE 40 MG TABLET (FP) PO SCH (11:17)
[2017-06-23] MEDS: PANTOPRAZOLE 40 MG TABLET (FP) PO SCH (11:18)
[2017-06-23] MEDS: FLUoxetine HCL 20 MG CAPSULE (FP) PO SCH (11:18)
[2017-06-23] MEDS: DIVALPROEX SODIUM 250 MG TABLET E.C. (FP) PO SCH ×2 (11:19→22:40)
[2017-06-23] MEDS: APIXABAN 5 MG TABLET PO SCH ×2 (11:20→22:40)
[2017-06-23] MEDS: POLYETHYLENE GLYCOL 3350 119 GM BTL PO SCH (11:24)
[2017-06-23] MEDS: clonazePAM 0.5 MG TABLET PO SCH ×2 (11:30→22:35)
--- NOTE | 2017-06-23 12:38 | PN ---
Progress Note (short form) - Note Progress Note: Neurology History of Present Illness The patient is a 51 year old female with history of hypertension, hyperlipidemia , DM, hypothyroidism, CAD, vertigo, schizoaffective disorder, sent from [facility] for possible stroke. Patient reports left sided weakness/numbness around 9:20 pm. Patient has a history of questionable similar eventss in the past. MRI brain in March was negative. I was contacted and she was considered for TPA but symptoms rapidly improved and there was question of conversion disorder given psych history and patient moving extremties. MRI brain without acute changes. Patient seen wheeling self throughout ER. Nueorlogically stable at this time. Active Medications Apixaban (Eliquis -) 5 mg PO BID [facility] Last Admin: 06/23/17 11:20 Dose: 5 mg Atorvastatin Calcium (Lipitor -) 20 mg PO HS [facility] Last Admin: 06/22/17 21:51 Dose: 20 mg Benztropine Mesylate (Cogentin -) 1 mg PO DAILY [facility] Last Admin: 06/23/17 11:17 Dose: 1 mg Bupropion HCl (Wellbutrin Xl -) 300 mg PO DAILY [facility] Last Admin: 06/23/17 11:20 Dose: 300 mg Clonazepam (Klonopin -) 1 mg PO BID [facility] Last Admin: 06/23/17 11:30 Dose: 1 mg Divalproex Sodium (Depakote -) 750 mg PO BID [facility] Last Admin: 06/23/17 11:19 Dose: 750 mg Fluoxetine HCl (Prozac -) 20 mg PO DAILY [facility] Last Admin: 06/23/17 11:18 Dose: 20 mg Furosemide (Lasix -) 40 mg PO DAILY [facility] Last Admin: 06/23/17 11:17 Dose: 40 mg Gabapentin (Neurontin -) 300 mg PO TID [facility] Last Admin: 06/23/17 06:14 Dose: 300 mg Insulin Aspart (Novolog) 10 units SQ BID@0700,1630 [facility] Last Admin: 06/23/17 06:14 Dose: Not Given Pantoprazole Sodium (Protonix -) 40 mg PO DAILY [facility] Last Admin: 06/23/17 11:18 Dose: 40 mg Polyethylene Glycol (Miralax (For Daily Use) -) 17 gm PO DAILY [facility] Last Admin: 06/23/17 11:24 Dose: Not Given Quetiapine Fumarate (Seroquel -) 400 mg PO HS [facility] Tizanidine HCl (Tizanidine Hcl) 2 mg PO Q8H PRN PRN Reason: MUSCLE SPASMS Last Admin: 06/22/17 16:14 Dose: 2 mg Tramadol HCl (Ultram -) 50 mg PO Q8H PRN PRN Reason: PAIN LEVEL 4 - 6 Last Admin: 06/22/17 19:29 Dose: 50 mg *Physical Exam Vital Signs Temperature 98.1 F 06/23/17 09:20 Pulse Rate 110 H 06/23/17 09:20 Respiratory Rate 06/23/17 09:20 Blood Pressure 128/74 06/23/17 09:20 O2 Sat by Pulse Oximetry (%) 98 06/23/17 09:20 GENERAL: Awake, alert, and fully oriented, in no acute distress HEAD: No signs of trauma EYES: PERRLA, EOMI, sclera anicteric, conjunctiva clear ENT: Auricles normal inspection, hearing grossly normal, nares patent, oropharynx clear without exudates. Moist mucosa NECK: Normal ROM, supple, no lymphadenopathy, JVD, or masses LUNGS: Breath sounds equal, clear to auscultation bilaterally. No wheezes, and no crackles HEART: Regular rate and rhythm, normal S1 and S2, no murmurs, rubs or gallops ABDOMEN: Soft, nontender, normoactive bowel sounds. No guarding, no rebound. No masses EXTREMITIES: Patient oringinally unable to move left side of body.(SEE NOTE ON BOTTOM) Normal range of motion, no edema. No clubbing or cyanosis. No cords, erythema, or tenderness NEUROLOGICAL: Speech disturbance noted, moving b/l extremities, giveway weakness on L, sensory intact SKIN: Warm, Dry, normal turgor, no rashes or lesions noted. CBCD WBC 8.6 K/mm3 (4.0-10.0) 06/22/17 09:51 RBC 4.61 M/mm3 (3.60-5.2) D 06/22/17 09:51 Hgb 12.8 GM/dL (10.7-15.3) D 06/22/17 09:51 Hct 38.6 % (32.4-45.2) D 06/22/17 09:51 MCV 83.9 fl (80-96) 06/22/17 09:51 MCHC 33.1 g/dl (32.0-36.0) 06/22/17 09:51 RDW 15.3 % (11.6-15.6) 06/22/17 09:51 Plt Count 206 K/MM3 (134-434) 06/22/17 09:51 MPV 10.1 fl (7.5-11.1) 06/22/17 09:51 CMP Sodium 139 mmol/L (136-145) 06/22/17 09:51 Potassium 4.1 mmol/L (3.5-5.1) 06/22/17 09:51 Chloride 102 mmol/L (98-107) 06/22/17 09:51 Carbon Dioxide 31 mmol/L (21-32) 06/22/17 09:51 Anion Gap 6 (8-16) L 06/22/17 09:51 BUN 30 mg/dL (7-18) H 06/22/17 09:51 Creatinine 1.1 mg/dL (0.55-1.02) H 06/22/17 09:51 Creat Clearance w eGFR 43.36 (>60) 06/21/17 22:55 Calcium 8.9 mg/dL (8.5-10.1) 06/22/17 09:51 Total Bilirubin 0.3 mg/dL (0.2-1.0) D 06/21/17 22:55 AST 30 U/L (15-37) 06/21/17 22:55 ALT 22 U/L (12-78) 06/21/17 22:55 Alkaline Phosphatase 120 U/L (45-117) H 06/21/17 22:55 Total Protein 7.3 g/dl (6.4-8.2) 06/21/17 22:55 Albumin 3.3 g/dl (3.4-5.0) L 06/21/17 22:55 CT head reviewed MRI brain reviewed PLan: 51 year old female with history of hypertension, hyperlipidemia, DM, hypothyroidism, CAD, vertigo, schizoaffective disorder, sent from [facility] for possible stroke. Patient reports left sided weakness/numbness around 9:20 pm. Patient has a history of questionable similar eventss in the past. MRI brain in March was negative. I was contacted and she was considered for TPA but symptoms rapidly improved and there was question of conversion disorder given psych history and patient moving extremties. MRI brain negative. Maintain normotensive range. IF continuting AC, then would not add antiplatelet due to bleed risk. If she will not be on AC, then can be on antiplatelet. Neurologically stable and wheeling self around ER.
--- NOTE | 2017-06-23 13:55 | DS ---
Physical Examination Vital Signs: Vital Signs Temperature 98.1 F 06/23/17 09:20 Pulse Rate 110 H 06/23/17 09:20 Respiratory Rate 20 06/23/17 12:41 Blood Pressure 128/74 06/23/17 09:20 O2 Sat by Pulse Oximetry (%) 98 06/23/17 12:41 Constitutional: Yes: Well Nourished, No Distress, Obese. No: Mild Distress, Moderate Distress, Severe Distress Eyes: Yes: WNL HENT: Yes: WNL Neck: Yes: WNL, Supple, Trachea Midline Cardiovascular: Yes: Regular Rate and Rhythm Respiratory: Yes: CTA Bilaterally Gastrointestinal: Yes: Soft, Abdomen, Obese ...Rectal Exam: Yes: Deferred Renal/: Yes: WNL Musculoskeletal: Yes: Muscle Weakness Extremities: No: Cyanosis, Deformity Edema: LUE: Trace, RUE: Trace, LLE: Trace, RLE: Trace Peripheral Pulses: Left Radial: 1+, Right Radial: 1+, Left Doralis Pedis: 1+, Right Dorsalis Pedis: 1+, Left Femoral: 1+, Right Femoral: 1+ Integumentary: Yes: WNL Neurological: Yes: Alert, Oriented, Pre-Existing Deficit Psychiatric: Yes: Alert, Oriented, Other (schizoprenia) Labs: CBC, BMP 06/22/17 09:51 06/22/17 09:51 Discharge Summary Reason For Visit: BIPOLAR AFFECTIVE DISORDER,CEREBRALVASCULAR ACCIDE Current Active Problems Cerebrovascular accident (CVA) (Acute) Schizophrenia (Acute) Bipolar disorder (Chronic) Hyperlipidemia (Chronic) Condition: Stable - Instructions Disposition: INTERMEDIATE FACILITY - Home Medications Comprehensive Discharge Medication List: Ambulatory Orders Albuterol Sulfate Inhaler - [Ventolin Hfa Inhaler -] 1 inh PO Q4H PRN 06/15/17 Apixaban [Eliquis] 5 mg PO BID 06/15/17 Benztropine Mesylate 1 mg PO DAILY 06/15/17 Bupropion HCl [Bupropion Xl] 300 mg PO DAILY 06/15/17 Clonazepam 1 mg PO Q12H 06/15/17 Divalproex [Depakote -] 750 mg PO BID 06/15/17 Ferrous Sulfate 325 mg PO DAILY 06/15/17 Fluoxetine HCl 20 mg PO DAILY 06/15/17 Furosemide [Lasix] 40 mg PO DAILY 06/15/17 Gabapentin 300 mg PO TID 06/15/17 Insulin Aspart [Novolog] 10 unit SQ TID 06/15/17 Levothyroxine [Synthroid -] 50 mcg PO DAILY 06/15/17 Metformin HCl 500 mg PO BID 06/15/17 Nitroglycerin Sublingual [Nitrostat -] 0.6 mg SL PRN PRN 06/15/17 Pantoprazole Sodium [Protonix] 40 mg PO DAILY 06/15/17 Polyethylene Glycol 3350 [Clearlax] 17 gm PO DAILY 06/15/17 Quetiapine Fumarate [Seroquel] 400 mg PO HS 06/15/17 Sennosides/Docusate Sodium [Senna Laxative Tablet] 1 each PO DAILY 06/15/17 Simvastatin 40 mg PO HS 06/15/17 Tizanidine HCl 2 mg PO Q8H PRN 06/15/17
[2017-06-23] MEDS ORDERED: QUEtiapine FUMARATE 200 MG TABLET PO SCH (22:00)
[2017-06-23] MEDS: ATORVASTATIN CA 20 MG TABLET (FP) PO SCH (22:40)
[2017-06-24] MEDS: GABAPENTIN 300 MG CAPSULE (FP) PO SCH ×2 (06:26→15:10)
[2017-06-24 07:07] VITALS: TEMP 98.4
[2017-06-24] MEDS: Insulin (LOG) Aspart 100 UNITS/ML VIAL SQ SCH ×2 (08:29→16:56)
--- NOTE | 2017-06-24 10:40 | PN ---
Progress Note (short form) - Note Progress Note: Neurology History of Present Illness The patient is a 51 year old female with history of hypertension, hyperlipidemia , DM, hypothyroidism, CAD, vertigo, schizoaffective disorder, sent from [facility] for possible stroke. Patient reports left sided weakness/numbness around 9:20 pm. Patient has a history of questionable similar eventss in the past. MRI brain in March was negative. I was contacted and she was considered for TPA but symptoms rapidly improved and there was question of conversion disorder given psych history and patient moving extremties. MRI brain without acute changes. Patient seen wheeling self throughout ER. Nueorlogically stable at this time. For discharge. Discussed with PCP. Active Medications Apixaban (Eliquis -) 5 mg PO BID [facility] Last Admin: 06/23/17 22:40 Dose: 5 mg Atorvastatin Calcium (Lipitor -) 20 mg PO HS [facility] Last Admin: 06/23/17 22:40 Dose: 20 mg Benztropine Mesylate (Cogentin -) 1 mg PO DAILY [facility] Last Admin: 06/23/17 11:17 Dose: 1 mg Bupropion HCl (Wellbutrin Xl -) 300 mg PO DAILY [facility] Last Admin: 06/23/17 11:20 Dose: 300 mg Clonazepam (Klonopin -) 1 mg PO BID [facility] Last Admin: 06/23/17 22:35 Dose: 1 mg Divalproex Sodium (Depakote -) 750 mg PO BID [facility] Last Admin: 06/23/17 22:40 Dose: 750 mg Fluoxetine HCl (Prozac -) 20 mg PO DAILY [facility] Last Admin: 06/23/17 11:18 Dose: 20 mg Furosemide (Lasix -) 40 mg PO DAILY [facility] Last Admin: 06/23/17 11:17 Dose: 40 mg Gabapentin (Neurontin -) 300 mg PO TID [facility] Last Admin: 06/24/17 06:26 Dose: 300 mg Insulin Aspart (Novolog) 10 units SQ BID@0700,1630 [facility] Last Admin: 06/24/17 08:29 Dose: Not Given Pantoprazole Sodium (Protonix -) 40 mg PO DAILY [facility] Last Admin: 06/23/17 11:18 Dose: 40 mg Polyethylene Glycol (Miralax (For Daily Use) -) 17 gm PO DAILY [facility] Last Admin: 06/23/17 11:24 Dose: Not Given Quetiapine Fumarate (Seroquel -) 400 mg PO HS [facility] Last Admin: 06/23/17 22:40 Dose: 400 mg Tizanidine HCl (Tizanidine Hcl) 2 mg PO Q8H PRN PRN Reason: MUSCLE SPASMS Last Admin: 06/22/17 16:14 Dose: 2 mg Tramadol HCl (Ultram -) 50 mg PO Q8H PRN PRN Reason: PAIN LEVEL 4 - 6 Last Admin: 06/22/17 19:29 Dose: 50 mg *Physical Exam Vital Signs Period Temp Pulse Resp BP Sys/Schultz Pulse Ox Last 24 Hr 98.4 F 84-98 18-20 119-132/62-68 95-99 GENERAL: Awake, alert, and fully oriented, in no acute distress HEAD: No signs of trauma EYES: PERRLA, EOMI, sclera anicteric, conjunctiva clear ENT: Auricles normal inspection, hearing grossly normal, nares patent, oropharynx clear without exudates. Moist mucosa NECK: Normal ROM, supple, no lymphadenopathy, JVD, or masses LUNGS: Breath sounds equal, clear to auscultation bilaterally. No wheezes, and no crackles HEART: Regular rate and rhythm, normal S1 and S2, no murmurs, rubs or gallops ABDOMEN: Soft, nontender, normoactive bowel sounds. No guarding, no rebound. No masses EXTREMITIES: Patient oringinally unable to move left side of body.(SEE NOTE ON BOTTOM) Normal range of motion, no edema. No clubbing or cyanosis. No cords, erythema, or tenderness NEUROLOGICAL: Speech disturbance noted, moving b/l extremities, giveway weakness on L, sensory intact SKIN: Warm, Dry, normal turgor, no rashes or lesions noted. CBCD WBC 8.6 K/mm3 (4.0-10.0) 06/22/17 09:51 RBC 4.61 M/mm3 (3.60-5.2) D 06/22/17 09:51 Hgb 12.8 GM/dL (10.7-15.3) D 06/22/17 09:51 Hct 38.6 % (32.4-45.2) D 06/22/17 09:51 MCV 83.9 fl (80-96) 06/22/17 09:51 MCHC 33.1 g/dl (32.0-36.0) 06/22/17 09:51 RDW 15.3 % (11.6-15.6) 06/22/17 09:51 Plt Count 206 K/MM3 (134-434) 06/22/17 09:51 MPV 10.1 fl (7.5-11.1) 06/22/17 09:51 CMP Sodium 139 mmol/L (136-145) 06/22/17 09:51 Potassium 4.1 mmol/L (3.5-5.1) 06/22/17 09:51 Chloride 102 mmol/L (98-107) 06/22/17 09:51 Carbon Dioxide 31 mmol/L (21-32) 06/22/17 09:51 Anion Gap 6 (8-16) L 06/22/17 09:51 BUN 30 mg/dL (7-18) H 06/22/17 09:51 Creatinine 1.1 mg/dL (0.55-1.02) H 06/22/17 09:51 Creat Clearance w eGFR 43.36 (>60) 06/21/17 22:55 Calcium 8.9 mg/dL (8.5-10.1) 06/22/17 09:51 Total Bilirubin 0.3 mg/dL (0.2-1.0) D 06/21/17 22:55 AST 30 U/L (15-37) 06/21/17 22:55 ALT 22 U/L (12-78) 06/21/17 22:55 Alkaline Phosphatase 120 U/L (45-117) H 06/21/17 22:55 Total Protein 7.3 g/dl (6.4-8.2) 06/21/17 22:55 Albumin 3.3 g/dl (3.4-5.0) L 06/21/17 22:55 CT head reviewed MRI brain reviewed PLan: 51 year old female with history of hypertension, hyperlipidemia, DM, hypothyroidism, CAD, vertigo, schizoaffective disorder, sent from [facility] for possible stroke. Patient reports left sided weakness/numbness around 9:20 pm. Patient has a history of questionable similar eventss in the past. MRI brain in March was negative. I was contacted and she was considered for TPA but symptoms rapidly improved and there was question of conversion disorder given psych history and patient moving extremties. MRI brain negative. Maintain normotensive range. IF continuting AC, then would not add antiplatelet due to bleed risk. If she will not be on AC, then can be on antiplatelet. Neurologically stable and wheeling self around ER. No new events, for discharge. Would be cautious in future as patient presents with acute weakness and multiple times found not to have CVA on imaging and with psych history can be unreliable.
[2017-06-24] MEDS: FUROSEMIDE 40 MG TABLET (FP) PO SCH (10:59)
[2017-06-24] MEDS: BENZTROPINE MESYLATE 1 MG TABLET (FP) PO SCH (10:59)
[2017-06-24] MEDS: FLUoxetine HCL 20 MG CAPSULE (FP) PO SCH (11:00)
[2017-06-24] MEDS: APIXABAN 5 MG TABLET PO SCH (11:00)
[2017-06-24] MEDS: DIVALPROEX SODIUM 250 MG TABLET E.C. (FP) PO SCH (11:00)
[2017-06-24] MEDS: PANTOPRAZOLE 40 MG TABLET (FP) PO SCH (11:00)
[2017-06-24] MEDS: POLYETHYLENE GLYCOL 3350 119 GM BTL PO SCH (11:00)
--- NOTE | 2017-06-24 11:06 | CONS ---
DATE OF CONSULTATION: 06/24/2017 HISTORY OF PRESENT ILLNESS: The patient is a 51-year-old woman who is known from prior admission to [facility] with an extensive past medical history, which includes schizophrenia, bipolar disorder, underlying COPD, coronary artery disease, [place] as well as, per the history, diabetes, and recent right pelvic fracture who was admitted from [facility] with left-sided weakness and difficulty with speech. The patient had been seen on June 07, 2017 on prior admission. At the time, she was complaining of right groin pain and hip pain. She was able to ambulate but needed further rehabilitation and was transferred to [facility] where she was receiving rehabilitation. Per the patient, she developed acute left-sided weakness. The patient underwent an MRI, which showed no acute brain infarct. Mild ventricular dilatation was noted. She states she continues to have problems with her speech, weakness of the left face and left arm, perhaps slightly diminished sensation. No new leg weakness, although she states her left leg is somewhat weak. The patient's chemistry included sodium 139, potassium 4.1, chloride 102, CO2 is 31, BUN 30, creatinine 1.1. CBC was normal with WBCs 8.6, hemoglobin 12.8, platelet count 206. The patient remains in the emergency room. She has not been seen by physical therapy but apparently was able to ambulate at [facility], and prior to going to [place] when she was an inpatient, ambulated about 50 feet with rolling walker contact guard favoring the right lower extremity here at [facility]. She does continue to have some degree of right groin pain. PAST MEDICAL HISTORY: As above. Also a history of possible CVA, hyperlipidemia, hypothyroidism, obesity, migraine headaches, posttraumatic stress disorder. PAST SURGICAL HISTORY: As above. Hysterectomy, laminectomy. SOCIAL HISTORY: Tobacco use for [id number] history or more and stopped smoking tobacco mid May 2017. No alcohol recently. History of drug abuse including cocaine and marijuana. She premorbidly lived in an adult home. Ambulated with a straight cane. She stated there was an elevator. Current function not available, but again, recently was ambulatory with a walker. REVIEW OF SYSTEMS: She has complaints of dizziness or lightheadedness but no current lightheadedness or dizziness. No headache. She states that her right eye is good, but she gets some blurry vision in the left eye. No nausea, vomiting, difficulty swallowing, difficulty chewing. She has some problems with speech but no problems with swallowing. No cough with swallowing. She appears to have eaten her meal completely this morning. No chest pain, shortness of breath. No fever or chills. No bowel or bladder incontinence. Again, she has some right groin pain and a little bit of discomfort in her left shoulder when she elevates her left shoulder and also in her neck. She has some right calf discomfort at times with a possible DVT. PHYSICAL EXAMINATION: General: An overweight woman seen lying on a stretcher in the emergency room. She is awake, alert, cooperative in no acute distress. HEENT: She is normocephalic and atraumatic. Her extraocular muscles appear intact. She may have some left facial weakness. Poor dentition. Dry mucous membranes. Neck: Supple. She is tender in the left upper trapezius but no cervical paraspinal tenderness or palpable spasm. Extremities: No pitting edema or current calf tenderness. Skin: Without any rash or breakdown. Neuromuscular: She is awake, alert but does not know the month. She knows she is in [facility] Emergency Room. She has some difficulty elevating the left shoulder with tenderness in the left shoulder even passive range, which is good in the left shoulder. Produces some pain so she only has a 1/5 to 2/5 strength in the left shoulder but negative drop arm. Positive impingement test. Good elbow flexion, elbow extension. Range with at least 3+/5 to 4/5 strength, 4/5 group product manager strength in the left hand. Normal sensation to pinprick, although she withdraws to pin. She states that it is a little bit less on the left compared to the right. She has good strength and range in the right upper extremity including her right shoulder girdle. Lower extremities 1/5 to 2/5 hip girdle strength bilaterally. Even passive range produces some pain in the right groin. She has better knee extension strength, at least 3+ bilaterally, 5/5 dorsiflexion and plantar flexion. Normal sensation to pinprick. Toes appear downgoing bilaterally. Reflexes symmetric but depressed in the lower extremities. OVERALL IMPRESSION: 1. Deficits in mobility and activities of daily living. 2. Facial weakness, slurred speech, complaints of left upper extremity weakness, uncertain etiology. Negative MRI of the brain. 3. Left shoulder pain, rule out rotator cuff impingement, bursitis. Less likely cervical radiculopathy or proximal pathology. 4. Recent right pelvic fracture. 5. Extensive past medical history including deep vein thrombosis on Eliquis for anticoagulation. 6. Bipolar disorder, schizophrenia. 7. Increased risk for constipation. 8. History of coronary artery disease, myocardial infarction, hypertension, hyperlipidemia. 9. History of diabetes, although the patient states she is not diabetic. 10. History of drug abuse. 11. Peptic ulcer disease. 12. Chronic obstructive pulmonary disease. 13. Possible diabetic peripheral neuropathy. PLAN AND SUGGESTION: 1. Physical therapy either in the emergency room or if she goes to floor as able. 2. When able, out of bed to chair with assistance. 3. The patient is on Eliquis. On further DVT prophylaxis needed. 4. Skin precautions. Monitor heel and sacrum for any erythema or breakdown. 5. Monitor for constipation. Continue current bowel regimen, which includes MiraLAX. No current complaints. 6. Disposition to short-term rehabilitation when stable. Thank you for this referral. OLIMPIA HOOD M.D. [id number]
[2017-06-24] MEDS: clonazePAM 0.5 MG TABLET PO SCH (11:24)
[2017-06-24 17:11] VITALS: BP 129/77; PULSE 84
--- NOTE | 2017-06-24 21:46 | EKG ---
Test Reason : Blood Pressure : / mmHG Vent. Rate : 086 BPM Atrial Rate : 086 BPM P-R Int : 150 ms QRS Dur : 086 ms QT Int : 392 ms P-R-T Axes : 032 009 028 degrees QTc Int : 469 ms NORMAL SINUS RHYTHM NORMAL ECG WHEN COMPARED WITH ECG OF 01-JUN-2017 17:21, T WAVE INVERSION NO LONGER EVIDENT IN ANTERIOR LEADS Confirmed by NELI MARIN MD ([id number]) on 06/24/2017 9:46:22 PM Referred By: Confirmed By:NELI MARIN MD
== END 2017-06-24 17:05 | DRG 750 ==
LOC: JER 22:02 → JERBED 06-22 02:51
PROVIDERS: ADMIT Family Medicine; ATTEND Family Medicine
DX: F25.8 Other schizoaffective disorders (principal); F31.89 Other bipolar disorder; I25.10 Atherosclerotic heart disease of native coronary artery without angina pectoris; R42 Dizziness and giddiness; E78.5 Hyperlipidemia, unspecified; I10 Essential (primary) hypertension; I25.2 Old myocardial infarction; D64.9 Anemia, unspecified; E03.9 Hypothyroidism, unspecified; E11.9 Type 2 diabetes mellitus without complications; M54.5 Low back pain; M79.605 Pain in left leg; M79.604 Pain in right leg; J44.9 Chronic obstructive pulmonary disease, unspecified; M62.81 Muscle weakness (generalized); G43.809 Other migraine, not intractable, without status migrainosus; E66.8 Other obesity; Z68.37 Body mass index [BMI] 37.0-37.9, adult; Z87.11 Personal history of peptic ulcer disease; Z86.73 Personal history of transient ischemic attack (TIA), and cerebral infarction without residual deficits
CPT/HCPCS: 36415; 70450-TC; 70551-TC; 71045-TC; 80048; 80053; 82550; 82553; 82962; 84484; 85025; 85610; 85730; 93005; 93010; 97116-GP; 97161-GP; 99285-25

== ENCOUNTER 2017-07-07 01:24 | Emergency (ER) | payer OTHER ==
[2017-07-07] MEDS ORDERED: METOCLOPRAMIDE HCL INJECTION 10 MG/2 ML VIAL IVPUSH ONE (01:53)
--- NOTE | 2017-07-07 01:53 | PDOC ---
History of Present Illness <Mckenna Swan - Last Filed: 07/07/17 05:46> - General History Source: Patient - History of Present Illness Initial Comments: 07/07/17 01:49 51 y.o. female presents with L sided weakness and headache. Patient unable to provide history of onset of symptoms. Headache is diffuse, pounding, 10/10, with no associated visual changes, nausea or confusion. Notes she is ambulatory and able to complete her ADL's. Patient denies chest pain, shortness of breath, abdominal cramping, constipation diarrhea. <Shavonne Martínez - Last Filed: 07/07/17 06:14> - General Stated Complaint: POSSIBLE STROKE Time Seen by Provider: 07/07/17 01:38 Past History <SosaMckenna - Last Filed: 07/07/17 05:46> - Past Medical History Anemia: Yes Asthma: Yes Cancer: No Cardiac Disorders: Yes (chest pain, CAD, CT x3) CVA: Yes (CVA x3, TIA, left sided residual) COPD: No CHF: No DVT: No Dementia: No Diabetes: Yes GI Disorders: Yes (PEPTIC ULCER) Disorders: No HTN: Yes Hypercholesterolemia: Yes Liver Disease: No Psychiatric Problems: Yes (BIPOLAR, POST TRAMATIC STRESS) Seizures: No Thyroid Disease: No - Surgical History Abdominal Surgery: Yes Appendectomy: No Cardiac Surgery: No Cholecystectomy: No Lung Surgery: No Neurologic Surgery: No Orthopedic Surgery: Yes - Immunization History Immunization Up to Date: No - Suicide/Smoking/Psychosocial Hx Smoking Status: Yes Smoking History: Never smoked Have you smoked in the past 12 months: Yes Number of Cigarettes Smoked Daily: 1 If you are a former smoker, when did you quit?: 09/18/2014 Cigars Per Day: 20 'Breaking Loose' booklet given: 10/30/14 Hx Alcohol Use: No Drug/Substance Use Hx: No Substance Use Type: None Hx Substance Use Treatment: Yes <Shavnone Martínez - Last Filed: 07/07/17 06:14> - Past Medical History Allergies/Adverse Reactions: Allergies Allergy/AdvReac Type Severity Reaction Status Date / Time hydromorphone HCl Allergy Intermediate Itching Verified 06/21/17 23:10 [From Dilaudid] amoxicillin [Amoxicillin] Allergy Verified 06/21/17 23:10 ampicillin Allergy Verified 06/21/17 23:10 aspirin Allergy Difficulty Verified 06/21/17 23:10 Breathing cranberry Allergy Rash Verified 06/21/17 23:10 doxycycline Allergy Rash Verified 06/21/17 23:10 Fish Containing Products Allergy Difficulty Verified 06/21/17 23:10 Breathing haloperidol [From Haldol] Allergy Rash Verified 06/21/17 23:10 haloperidol lactate Allergy Rash Verified 06/21/17 23:10 [From Haldol] ibuprofen [From Motrin] Allergy Difficulty Verified 06/21/17 23:10 Breathing ketorolac tromethamine Allergy Rash Verified 06/21/17 23:10 [From Toradol] levofloxacin [From Levaquin] Allergy Rash Verified 06/21/17 23:10 milk Allergy Difficulty Verified 06/21/17 23:10 Breathing oxycodone HCl [From Percocet] Allergy Rash Verified 06/21/17 23:10 Penicillins Allergy Difficulty Verified 06/21/17 23:10 Breathing sulfamethoxazole Allergy Rash Verified 06/21/17 23:10 [From Bactrim] trimethoprim [From Bactrim] Allergy Verified 06/21/17 23:10 warfarin sodium Allergy Verified 06/21/17 23:10 [From Coumadin] Gravy Allergy Unknown Uncoded 06/21/17 23:10 Cranberry/Cranberry juice Allergy Uncoded 06/21/17 23:10 raw tomato Allergy Uncoded 06/21/17 23:10 Home Medications: Ambulatory Orders Albuterol Sulfate Inhaler - [Ventolin Hfa Inhaler -] 1 inh PO Q4H PRN 06/15/17 Benztropine Mesylate 1 mg PO DAILY 06/15/17 Clonazepam 1 mg PO Q12H 06/15/17 Divalproex [Depakote -] 750 mg PO HS 06/15/17 Ferrous Sulfate 325 mg PO DAILY 06/15/17 Fluoxetine HCl 40 mg PO DAILY 06/15/17 Gabapentin 300 mg PO TID 06/15/17 Levothyroxine [Synthroid -] 50 mcg PO DAILY 06/15/17 Nitroglycerin Sublingual [Nitrostat -] 0.6 mg SL PRN PRN 06/15/17 Polyethylene Glycol 3350 [Clearlax] 17 gm PO DAILY 06/15/17 Quetiapine Fumarate [Seroquel] 400 mg PO HS 06/15/17 Sennosides/Docusate Sodium [Senna Laxative Tablet] 2 each PO HS 06/15/17 Simvastatin 40 mg PO HS 06/15/17 Apixaban [Eliquis -] 5 mg PO BID tablet 06/23/17 Atorvastatin Ca [Lipitor] 20 mg PO HS tablet 06/23/17 Budesonide/Formeterol Fumarate [SYMBICORT 80/4.5mcg -] 1 inh PO DAILY 06/23/17 Bupropion HCl [Wellbutrin Xl -] 300 mg PO DAILY tab.sr.24h 06/23/17 Docusate Sodium [Colace] 300 mg PO HS 06/23/17 Furosemide [Lasix -] 40 mg PO DAILY tablet 06/23/17 Insulin (LOG) Aspart [NovoLOG -] 10 units SQ BID@0700,1630 vial 06/23/17 Metoprolol Succinate [Toprol Xl] 125 mg PO BID 06/23/17 Morphine Sulfate [Morphine Sulfate ER] 15 mg PO Q6H PRN 06/23/17 Nystatin Powder [Nystop Topical Powder -] 0 gm TP BID 06/23/17 Pantoprazole Sodium [Protonix -] 40 mg PO DAILY tablet.ec 06/23/17 Tizanidine HCl 2 mg PO Q8H PRN tablet 06/23/17 Review of Systems - Review of Systems Constitutional: No: Chills, Fever HEENTM: No: Recent change in vision Respiratory: No: Shortness of Breath Cardiac (ROS): No: Chest Pain : No: Burning, Dysuria <Shavonne Martínez - Last Filed: 07/07/17 06:14> *Physical Exam - Vital Signs Last Vital Signs Temp Pulse Resp BP Pulse Ox 98.7 F 80 18 92/63 99 07/07/17 02:21 07/07/17 02:21 07/07/17 02:21 07/07/17 02:21 07/07/17 02:21 <Mckenna Swan - Last Filed: 07/07/17 05:46> - Physical Exam General Appearance: Yes: Nourished, Appropriately Dressed HEENT: positive: EOMI, LINDA Neck: positive: Trachea midline, Supple Respiratory/Chest: positive: Lungs Clear Cardiovascular: positive: S1, S2 Extremity: positive: Normal Capillary Refill, Normal Inspection Integumentary: positive: Normal Color, Dry, Warm Neurologic: positive: library paraprofessional II-XII NML intact, Fully Oriented, Motor Strength 5/5 <Shavonne Martínez - Last Filed: 07/07/17 06:14> ED Treatment Course - Medications Given in the ED: ED Medications Discontinued Medications Generic Name Dose Route Start Last Admin Trade Name Winston PRN Reason Stop Dose Admin Diphenhydramine HCl 12.5 mg 07/07/17 01:54 07/07/17 02:27 Benadryl Injection - IVPUSH 07/07/17 01:55 12.5 mg ONCE ONE Administration Metoclopramide HCl 10 mg 07/07/17 01:53 07/07/17 02:27 Reglan Injection - IVPUSH 07/07/17 01:54 10 mg ONCE ONE Administration Sodium Chloride 500 ml 07/07/17 01:54 07/07/17 02:27 Normal Saline - IV 07/07/17 01:55 500 ml ONCE ONE Administration <Mckenna Swan - Last Filed: 07/07/17 05:46> Medical Decision Making - Medical Decision Making 07/07/17 01:52 Patient is a 51 y.o. female who presents c/o L sided weakness and headache. On PE patient has normal strength on L side and is using LUE when she thinks she is not being observed. Low clinical suspicion for CVA given patient's benign physical exam. Will give Reglan + Benadryl + IV fluid and reasess. 07/07/17 06:12 Patient's symptoms resolved with headache cocktail. Will discharge with return precautions. <Shavonne Martínez - Last Filed: 07/07/17 06:14> *DC/Admit/Observation/Transfer - Discharge Dispostion Admit: No <Mckenna Swan - Last Filed: 07/07/17 05:46> <Shavonne Martínez - Last Filed: 07/07/17 06:14> Diagnosis at time of Disposition: Headache - Discharge Dispostion Disposition: HOME Condition at time of disposition: Stable - Patient Instructions Printed Discharge Instructions: DI for Migraine Additional Instructions: Return to the Emergency Department for any new/worsening/concerning symptoms.
[2017-07-07] MEDS ORDERED: SODIUM CHLORIDE 0.9% 1000 ML INFUS.BAG IV ONE (01:54)
[2017-07-07 02:26] VITALS: TEMP 98.7; BMI 32.5
--- NOTE | 2017-07-07 05:57 | PDOC ---
Attending Attestation - Resident Resident Name: Shavonne Martínez - ED Attending Attestation I have performed the following: I have examined & evaluated the patient, The case was reviewed & discussed with the resident, I agree w/resident's findings & plan - HPI HPI: 07/07/17 21:19 Pt comes with complaint of headache. SHe is often in our ER. She has no other neurologic complaints or deficits today. - Physicial Exam PE: 07/07/17 06:44 Pt comes with headache and multiple complaints. She is known to us and she has schizophrenia. Pt often comes with complaint of headache and stroke. Today no complaint of stroke only PATIÑO. - Medical Decision Making 07/07/17 06:45 Pt received a headache cocktail and feels better. She will be discharged home.
[2017-07-07 08:52] VITALS: BP 100/68; PULSE 78
== END 2017-07-07 08:52 ==
LOC: JER 01:24
PROC: 3E033GC Introduction of Other Therapeutic Substance into Peripheral Vein, Percutaneous Approach (ICD-10-PCS; principal; 2017-07-07)
PROC: 3E033GC Introduction of Other Therapeutic Substance into Peripheral Vein, Percutaneous Approach (ICD-10-PCS; 2017-07-07)
DX: R51 Headache (principal); I10 Essential (primary) hypertension; R31.9 Hematuria, unspecified; I25.2 Old myocardial infarction; E11.9 Type 2 diabetes mellitus without complications; Z79.4 Long term (current) use of insulin; F20.9 Schizophrenia, unspecified; I69.854 Hemiplegia and hemiparesis following other cerebrovascular disease affecting left non-dominant side
CPT/HCPCS: 96374; 96375; 99282-25

== ENCOUNTER 2017-07-30 10:29 | Emergency (ER) | payer OTHER ==
--- NOTE | 2017-07-30 10:58 | PDOC ---
History of Present Illness - General Chief Complaint: Suicidal Stated Complaint: EDP Time Seen by Provider: 07/30/17 10:53 - History of Present Illness Initial Comments: 07/30/17 10:59 51 yo F with h/o HTN, HLD, NIDDM, CAD, COPD, depression, and Schitzoaffective disorder with depressed mood and auditory hallucinations. Patient reports one month of increasing depression, with 1 day of suicidal ideations. Patient reports today is the one year anniversary of her "sponsors ." States that she is prepared to hang herself with a belt. Also endorses ideations of cutting her wrist with a sharp object to bleed to . Has not attempted sudicide today. Patient endorses increased sleep disturbances, decreased appetite, anhedonia. Denies homicidal ideation. Endorses dysuria x 3 days, with no asx. flank pain, hematuria, or abdominal pain. Denies N/V, F/C, CP, SOB, diarrhea, constipation, lightheadedness, weakness. Past History - Past Medical History Allergies/Adverse Reactions: Allergies Allergy/AdvReac Type Severity Reaction Status Date / Time hydromorphone HCl Allergy Intermediate Itching Verified 07/30/17 13:10 [From Dilaudid] amoxicillin [Amoxicillin] Allergy Verified 07/30/17 13:10 ampicillin Allergy Verified 07/30/17 13:10 aspirin Allergy Difficulty Verified 07/30/17 13:10 Breathing cranberry Allergy Rash Verified 07/30/17 13:10 doxycycline Allergy Rash Verified 07/30/17 13:10 Fish Containing Products Allergy Difficulty Verified 07/30/17 13:10 Breathing haloperidol [From Haldol] Allergy Rash Verified 07/30/17 13:10 haloperidol lactate Allergy Rash Verified 07/30/17 13:10 [From Haldol] ibuprofen [From Motrin] Allergy Difficulty Verified 07/30/17 13:10 Breathing ketorolac tromethamine Allergy Rash Verified 07/30/17 13:10 [From Toradol] levofloxacin [From Levaquin] Allergy Rash Verified 07/30/17 13:10 milk Allergy Difficulty Verified 07/30/17 13:10 Breathing oxycodone HCl [From Percocet] Allergy Rash Verified 07/30/17 13:10 Penicillins Allergy Difficulty Verified 07/30/17 13:10 Breathing sulfamethoxazole Allergy Rash Verified 07/30/17 13:10 [From Bactrim] trimethoprim [From Bactrim] Allergy Verified 07/30/17 13:10 warfarin sodium Allergy Verified 07/30/17 13:10 [From Coumadin] Gravy Allergy Unknown Uncoded 06/21/17 23:10 Cranberry/Cranberry juice Allergy Uncoded 06/21/17 23:10 raw tomato Allergy Uncoded 06/21/17 23:10 Home Medications: Ambulatory Orders Albuterol Sulfate Inhaler - [Ventolin Hfa Inhaler -] 1 inh PO Q4H PRN 06/15/17 Benztropine Mesylate 1 mg PO DAILY 06/15/17 Clonazepam 1 mg PO Q12H 06/15/17 Divalproex [Depakote -] 750 mg PO HS 06/15/17 Ferrous Sulfate 325 mg PO DAILY 06/15/17 Fluoxetine HCl 40 mg PO DAILY 06/15/17 Gabapentin 300 mg PO TID 06/15/17 Levothyroxine [Synthroid -] 50 mcg PO DAILY 06/15/17 Nitroglycerin Sublingual [Nitrostat -] 0.6 mg SL PRN PRN 06/15/17 Polyethylene Glycol 3350 [Clearlax] 17 gm PO DAILY 06/15/17 Quetiapine Fumarate [Seroquel] 400 mg PO HS 06/15/17 Sennosides/Docusate Sodium [Senna Laxative Tablet] 2 each PO HS 06/15/17 Simvastatin 40 mg PO HS 06/15/17 Apixaban [Eliquis -] 5 mg PO BID tablet 06/23/17 Atorvastatin Ca [Lipitor] 20 mg PO HS tablet 06/23/17 Budesonide/Formeterol Fumarate [SYMBICORT 80/4.5mcg -] 1 inh PO DAILY 06/23/17 Bupropion HCl [Wellbutrin Xl -] 300 mg PO DAILY tab.sr.24h 06/23/17 Docusate Sodium [Colace] 300 mg PO HS 06/23/17 Furosemide [Lasix -] 40 mg PO DAILY tablet 06/23/17 Insulin (LOG) Aspart [NovoLOG -] 10 units SQ BID@0700,1630 vial 06/23/17 Metoprolol Succinate [Toprol Xl] 125 mg PO BID 06/23/17 Morphine Sulfate [Morphine Sulfate ER] 15 mg PO Q6H PRN 06/23/17 Nystatin Powder [Nystop Topical Powder -] 0 gm TP BID 06/23/17 Pantoprazole Sodium [Protonix -] 40 mg PO DAILY tablet.ec 06/23/17 Tizanidine HCl 2 mg PO Q8H PRN tablet 06/23/17 Anemia: Yes Asthma: Yes Cancer: No Cardiac Disorders: Yes (chest pain, CAD, [place] x3) CVA: Yes (CVA x3, TIA, left sided residual) COPD: No CHF: No DVT: No Dementia: No Diabetes: Yes GI Disorders: Yes (PEPTIC ULCER) Disorders: No HTN: Yes Hypercholesterolemia: Yes Liver Disease: No Psychiatric Problems: Yes (BIPOLAR, POST TRAMATIC STRESS) Seizures: No Thyroid Disease: No - Surgical History Abdominal Surgery: Yes Appendectomy: No Cardiac Surgery: No Cholecystectomy: No Lung Surgery: No Neurologic Surgery: No Orthopedic Surgery: Yes - Immunization History Immunization Up to Date: No - Suicide/Smoking/Psychosocial Hx Smoking Status: Yes Smoking History: Never smoked Have you smoked in the past 12 months: Yes Number of Cigarettes Smoked Daily: 1 If you are a former smoker, when did you quit?: 09/18/2014 Cigars Per Day: 20 'Breaking Loose' booklet given: 10/30/14 Hx Alcohol Use: No Drug/Substance Use Hx: No Substance Use Type: None Hx Substance Use Treatment: Yes Review of Systems - Review of Systems Comments:: 07/30/17 10:58 GENERAL/CONSTITUTIONAL: No fever or chills. No weakness. HEAD, EYES, EARS, NOSE AND THROAT: No change in vision. No ear pain or discharge. No sore throat.- CARDIOVASCULAR: No chest pain or shortness of breath RESPIRATORY: No cough, wheezing, or hemoptysis. GASTROINTESTINAL: No nausea, vomiting, diarrhea or constipation. GENITOURINARY: + dysuria. No frequency, or change in urination. MUSCULOSKELETAL: No joint or muscle swelling or pain. No neck or back pain. SKIN: No rash NEUROLOGIC: No headache, vertigo, loss of consciousness, or change in strength/ sensation. ENDOCRINE: No increased thirst. No abnormal weight change HEMATOLOGIC/LYMPHATIC: No anemia, easy bleeding, or history of blood clots. ALLERGIC/IMMUNOLOGIC: No hives or skin allergy. *Physical Exam - Physical Exam Comments: 07/30/17 10:58 GENERAL: Awake, alert, and fully oriented, in no acute distress HEAD: No signs of trauma, normocephalic, atraumatic EYES: PERRLA, EOMI, sclera anicteric, conjunctiva clear ENT: Auricles normal inspection, hearing grossly normal, nares patent, oropharynx clear without exudates. Moist mucosa NECK: Normal ROM, supple, no lymphadenopathy, JVD, or masses LUNGS: No distress, speaks full sentences, clear to auscultation bilaterally HEART: Regular rate and rhythm, normal S1 and S2, no murmurs, rubs or gallops, peripheral pulses normal and equal bilaterally. EXTREMITIES : Normal inspection, Normal range of motion, no edema. No clubbing or cyanosis. SKIN: Warm, Dry, normal turgor, no rashes or lesions noted ED Treatment Course - LABORATORY CBC & Chemistry Diagram: 07/30/17 12:25 07/30/17 12:25 Medical Decision Making - Medical Decision Making 07/30/17 11:52 51 yo F with h/o HTN, HLD, NIDDM, CAD, COPD, depression, and Schitzoaffective disorder with depressed mood and auditory hallucinations. Patient reports one month of increasing depression, with 1 day of suicidal ideations. Patient reports today is the one year anniversary of her "sponsors ." States that she is prepared to hang herself with a belt. Also endorses ideations of cutting her wrist with a sharp object to bleed to . Has not attempted suicide today. Patient endorses increased sleep disturbances, decreased appetite, anhedonia. Denies homicidal ideation. Endorses dysuria x 3 days, with no asx. flank pain, hematuria, or abdominal pain. Denies N/V, F/C, CP, SOB, diarrhea, constipation, lightheadedness, weakness. Physical exam with no evidence of self harm, cutting, abrasions, or bony deformities. Patient non toxic appearing and interacting comfortably with staff. Given patient history and multiple false reports of suicide attempot with recurrent ED visits over the past few years, she is an unreliable psychiatric historian. Will attempt to medically clear patient prior to discharge, and consult psychiatry. ED Course: Dr. Lance Chacko consulted. He reports he has seen this pt. multiple times with false reports of suicide attempts and manipulative begviors with false reports of strokes, psych commodities, and suicide attempts. 07/30/17 12:54 UDS: Pos cocaine, MDMA, Opiates. 07/30/17 13:18 CBC, CMP: Unremarkable UA: Unremarkable 07/30/17 13:19 Pt. stable and medically cleared for d/c back to facility. *DC/Admit/Observation/Transfer Diagnosis at time of Disposition: Suicidal thoughts - Discharge Dispostion Disposition: HOME Condition at time of disposition: Stable Admit: No - Referrals Referrals: Fernando Serrano [Primary Care Provider] - - Patient Instructions Printed Discharge Instructions: DI for Suicidal Ideation-Adult Additional Instructions: Please return to the emergency department with any new or worsening symptoms or concerns. Please follow up with your psychiatrist within one week. - Post Discharge Activity Forms/Work/School Notes: My Personal Safety Plan - Attestations Physician Attestion: 07/30/17 13:21 I attest to the information provided in this note.
[2017-07-30 11:09] VITALS: BP 131/80; PULSE 105; TEMP 98; BMI 37.9
[2017-07-30 12:11] LABS: URINE APPEARANCE SLCLOUDY; URINE BILIRUBIN NEGATIVE (NEGATIVE); URINE BLOOD NEGATIVE (NEGATIVE); URINE COLOR LTYELLOW; URINE GLUCOSE (UA) NEGATIVE (NEGATIVE); URINE KETONE NEGATIVE (NEGATIVE); URINE NITRITE NEGATIVE (NEGATIVE); URINE PROTEIN NEGATIVE (NEGATIVE)
[2017-07-30 12:17] LABS: URINE LEUK ESTERASE 1+ (NEGATIVE)
[2017-07-30 12:18] LABS: EPI CELLS RARE /HPF (FEW); URINE MUCUS RARE
[2017-07-30 12:20] LABS: METHADONE, UR NEGATIVE ng/ml (CUTOFF=300); PHENCYCLIDINE,URINE NEGATIVE ng/ml (CUTOFF=25); URINE AMPHETAMINES NEGATIVE ng/ml (CUTOFF=500); URINE BARBITURATES NEGATIVE ng/ml (CUTOFF=200); URINE BENZODIAZEPINES NEGATIVE ng/ml (CUTOFF=200)
[2017-07-30 12:21] LABS: COCAINE, UR POSITIVE ng/ml (CUTOFF=300); OPIATES, URI POSITIVE ng/ml (CUTOFF=300)
[2017-07-30 12:33] LABS: EOS % 1.3 % (0-4.5); HEMATOCRIT 34.7 % (32.4-45.2); HEMOGLOBIN 11.7 GM/dL (10.7-15.3); LYMPH % 30.3 % (8-40); MCH 27.4 pg (25.7-33.7); MCHC 33.8 g/dl (32.0-36.0); MEAN CELL VOLUME 81.2 fl (80-96); MONO % 7.2 % (3.8-10.2); NEUT % 60.2 % (42.8-82.8); PLATELET COUNT 185 K/MM3 (134-434); RBC 4.27 M/mm3 (3.60-5.2); RDW 14.7 % (11.6-15.6); WHITE BLOOD COUNT 8.2 K/mm3 (4.0-10.0)
[2017-07-30 13:01] LABS: ALBUMIN 3.8 g/dl (3.4-5.0); ANION GAP 4 (8-16); BILIRUBIN,TOTAL 0.2 mg/dL (0.2-1.0); BLOOD UREA NITROGEN 27 mg/dL (7-18); CALCIUM 8.3 mg/dL (8.5-10.1); CHLORIDE 103 mmol/L (98-107); CO2 32 mmol/L (21-32); CREATININE 1.1 mg/dL (0.55-1.02); GLUCOSE,RANDOM 91 mg/dL (74-106); POTASSIUM 3.8 mmol/L (3.5-5.1); SGOT/AST 10 U/L (15-37); SODIUM 139 mmol/L (136-145); TOT PROT 7.6 g/dl (6.4-8.2)
[2017-07-30 13:07] LABS: ALK PHOS 137 U/L (45-117); SGPT/ALT 10 U/L (12-78)
--- NOTE | 2017-07-30 13:35 | PDOC ---
Attending Attestation - Resident Resident Name: Jesse Escobedoson - ED Attending Attestation I have performed the following: I have examined & evaluated the patient, The case was reviewed & discussed with the resident, I agree w/resident's findings & plan, Exceptions are as noted - HPI HPI: 07/30/17 13:32 51-year-old female with history of schizoaffective disorder with depressive tendencies and several visits in the past for suicidal ideation presents from [facility] for suicidal ideation expressed to the staff there. Patient is grieving because her sponsor 1 year ago today, reports her usual suicidal ideations without actual plan or attempt. - Physicial Exam PE: 07/30/17 13:33 Vital signs normal. Well-appearing, ambulating in ED Making good eye contact, not tearful, not actively hallucinating - Medical Decision Making 07/30/17 13:33 Patient seen and evaluated with the resident. I agree with the overall evaluation, assessment, and management with the following summary of visit: 51-year-old female from [facility] facility with suicidal ideations in the setting of grieving over her sponsor's anniversary. Has h/o SI, ? part of manipulative behavior noted in the past. discussed with Dr. Chacko, who knows the patient well and states she can return to [facility] (formerly [facility]). medically cleared without acute abnormality on labs/ua
== END 2017-07-30 16:14 | disposition home or self-care (01) ==
LOC: JER 10:29
DX: R45.851 Suicidal ideations (principal); I25.10 Atherosclerotic heart disease of native coronary artery without angina pectoris; I10 Essential (primary) hypertension; E78.00 Pure hypercholesterolemia, unspecified; E11.9 Type 2 diabetes mellitus without complications; J44.9 Chronic obstructive pulmonary disease, unspecified; F25.9 Schizoaffective disorder, unspecified; F43.10 Post-traumatic stress disorder, unspecified; F31.9 Bipolar disorder, unspecified; R44.0 Auditory hallucinations; F99 Mental disorder, not otherwise specified; I69.854 Hemiplegia and hemiparesis following other cerebrovascular disease affecting left non-dominant side
CPT/HCPCS: 36415; 80053; 80307; 81003; 81015; 85025; 99285-25; G0480

== ENCOUNTER 2017-09-12 04:44 | Emergency (ER) | payer OTHER ==
[2017-09-12 05:00] VITALS: TEMP 98.1; BMI 38.8
--- NOTE | 2017-09-12 05:14 | PDOC ---
History of Present Illness - General Chief Complaint: Injury Stated Complaint: FALL Time Seen by Provider: 09/12/17 04:47 History Source: Patient - History of Present Illness Initial Comments: 09/12/17 05:13 51 year old female s/p syncopal episode reports that she fell backwards and hit her head. patient reportedly topok her dose of seroquel and klonipin after fall. patient is alert ox3, noted to be sleepy at times., awakes with verbal stimuli. equal motor strength noted. Past History - Past Medical History Allergies/Adverse Reactions: Allergies Allergy/AdvReac Type Severity Reaction Status Date / Time hydromorphone HCl Allergy Intermediate Itching Verified 09/12/17 05:00 [From Dilaudid] amoxicillin [Amoxicillin] Allergy Verified 09/12/17 05:00 ampicillin Allergy Verified 09/12/17 05:00 aspirin Allergy Difficulty Verified 09/12/17 05:00 Breathing cranberry Allergy Rash Verified 09/12/17 05:00 doxycycline Allergy Rash Verified 09/12/17 05:00 Fish Containing Products Allergy Difficulty Verified 09/12/17 05:00 Breathing haloperidol [From Haldol] Allergy Rash Verified 09/12/17 05:00 haloperidol lactate Allergy Rash Verified 09/12/17 05:00 [From Haldol] ibuprofen [From Motrin] Allergy Difficulty Verified 09/12/17 05:00 Breathing ketorolac tromethamine Allergy Rash Verified 09/12/17 05:00 [From Toradol] levofloxacin [From Levaquin] Allergy Rash Verified 09/12/17 05:00 milk Allergy Difficulty Verified 09/12/17 05:00 Breathing oxycodone HCl [From Percocet] Allergy Rash Verified 09/12/17 05:00 Penicillins Allergy Difficulty Verified 09/12/17 05:00 Breathing sulfamethoxazole Allergy Rash Verified 09/12/17 05:00 [From Bactrim] trimethoprim [From Bactrim] Allergy Verified 09/12/17 05:00 warfarin sodium Allergy Verified 09/12/17 05:00 [From Coumadin] Gravy Allergy Unknown Uncoded 09/12/17 05:00 Cranberry/Cranberry juice Allergy Uncoded 09/12/17 05:00 raw tomato Allergy Uncoded 09/12/17 05:00 Home Medications: Ambulatory Orders Albuterol Sulfate Inhaler - [Ventolin Hfa Inhaler -] 1 inh PO Q4H PRN 06/15/17 Clonazepam 1 mg PO Q12H 06/15/17 Divalproex [Depakote -] 750 mg PO HS 06/15/17 Ferrous Sulfate 325 mg PO DAILY 06/15/17 Fluoxetine HCl 40 mg PO DAILY 06/15/17 Gabapentin 300 mg PO TID 06/15/17 Levothyroxine [Synthroid -] 50 mcg PO DAILY 06/15/17 Nitroglycerin Sublingual [Nitrostat -] 0.6 mg SL PRN PRN 06/15/17 Polyethylene Glycol 3350 [Clearlax] 17 gm PO DAILY 06/15/17 Quetiapine Fumarate [Seroquel] 300 mg PO HS 06/15/17 Sennosides/Docusate Sodium [Senna Laxative Tablet] 2 each PO HS 06/15/17 Apixaban [Eliquis -] 5 mg PO BID tablet 06/23/17 Budesonide/Formeterol Fumarate [SYMBICORT 80/4.5mcg -] 1 inh PO DAILY 06/23/17 Bupropion HCl [Wellbutrin Xl -] 300 mg PO DAILY tab.sr.24h 06/23/17 Docusate Sodium [Colace] 300 mg PO HS 06/23/17 Furosemide [Lasix -] 40 mg PO DAILY tablet 06/23/17 Metoprolol Succinate [Toprol Xl] 12.5 mg PO BID 06/23/17 Morphine Sulfate [Morphine Sulfate ER] 30 mg PO Q6H PRN 06/23/17 Pantoprazole Sodium [Protonix -] 40 mg PO DAILY tablet.ec 06/23/17 Benztropine Mesylate [Cogentin -] 0.5 mg PO BID 09/12/17 Metformin HCl 500 mg PO BID 09/12/17 Simvastatin [Zocor -] 40 mg PO HS 09/12/17 Anemia: Yes Asthma: Yes Cancer: No Cardiac Disorders: Yes (chest pain, CAD, [place] x3) CVA: Yes (CVA x3, TIA, left sided residual) COPD: No CHF: No DVT: No Dementia: No Diabetes: Yes GI Disorders: Yes (PEPTIC ULCER) Disorders: No HTN: Yes Hypercholesterolemia: Yes Liver Disease: No Psychiatric Problems: Yes (BIPOLAR, POST TRAMATIC STRESS) Seizures: No Thyroid Disease: No - Surgical History Abdominal Surgery: Yes Appendectomy: No Cardiac Surgery: No Cholecystectomy: No Lung Surgery: No Neurologic Surgery: No Orthopedic Surgery: Yes - Immunization History Immunization Up to Date: No - Suicide/Smoking/Psychosocial Hx Smoking Status: Yes Smoking History: Never smoked Have you smoked in the past 12 months: No Number of Cigarettes Smoked Daily: 1 If you are a former smoker, when did you quit?: 09/18/2014 Cigars Per Day: 20 Information on smoking cessation initiated: No 'Breaking Loose' booklet given: 10/30/14 Hx Alcohol Use: No Drug/Substance Use Hx: No Substance Use Type: None Hx Substance Use Treatment: Yes *Physical Exam - Vital Signs Last Vital Signs Temp Pulse Resp BP Pulse Ox 98.1 F 89 18 100/83 98 09/12/17 04:58 09/12/17 04:58 09/12/17 04:58 09/12/17 04:58 09/12/17 04:58 - Physical Exam General Appearance: Yes: Appropriately Dressed Respiratory/Chest: positive: Normal Breath Sounds Cardiovascular: positive: Regular Rhythm, Regular Rate Gastrointestinal/Abdominal: positive: Normal Bowel Sounds, Soft Musculoskeletal: positive: Normal Inspection, Other (Hip tender b/l) Extremity: positive: Normal Capillary Refill, Normal Inspection, Normal Range of Motion Integumentary: positive: Normal Color, Dry, Warm Neurologic: positive: Fully Oriented, Alert, Other (sleepy) Heart Score/ECG Review - ECG Intrepretation Rhythm: Regular Rhythm Comment:: 09/12/17 06:35 NSR: 80 bpm ED Treatment Course - LABORATORY CBC & Chemistry Diagram: 09/12/17 05:15 09/12/17 05:15 Medical Decision Making - Medical Decision Making 09/12/17 06:28 A: syncope? P: cbc cmp ct head and cervical patient refused hip xrays. no uneven lower extremity *DC/Admit/Observation/Transfer Diagnosis at time of Disposition: Syncope and collapse Head injury Qualifiers: Encounter type: initial encounter Qualified Code(s): S09.90XA - Unspecified injury of head, initial encounter - Referrals - Patient Instructions - Post Discharge Activity
[2017-09-12 05:31] LABS: BASO % 0.6 % (0-2.0); EOS % 1.5 % (0-4.5); HEMATOCRIT 36.8 % (32.4-45.2); HEMOGLOBIN 12.7 GM/dL (10.7-15.3); LYMPH % 25.3 % (8-40); MCH 27.3 pg (25.7-33.7); MCHC 34.4 g/dl (32.0-36.0); MEAN CELL VOLUME 79.6 fl (80-96); MEAN PLT VOLUME 9.5 fl (7.5-11.1); MONO % 9.3 % (3.8-10.2); NEUT % 63.3 % (42.8-82.8); PLATELET COUNT 203 K/MM3 (134-434); RBC 4.63 M/mm3 (3.60-5.2); RDW 16.5 % (11.6-15.6); WHITE BLOOD COUNT 8.7 K/mm3 (4.0-10.0)
[2017-09-12 05:44] LABS: INR 1.09 (0.82-1.09); PROTHROMBIN TIME (PATIENT) 12.3 SEC (9.98-11.88)
[2017-09-12 06:04] LABS: ALBUMIN 3.7 g/dl (3.4-5.0); ANION GAP 7 (8-16); BLOOD UREA NITROGEN 28 mg/dL (7-18); CALCIUM 8.4 mg/dL (8.5-10.1); CHLORIDE 103 mmol/L (98-107); CO2 30 mmol/L (21-32); CREATININE 1.5 mg/dL (0.55-1.02); GLUCOSE,RANDOM 116 mg/dL (74-106); MAGNESIUM 1.9 mg/dL (1.8-2.4); POTASSIUM 3.7 mmol/L (3.5-5.1); SGOT/AST 16 U/L (15-37); SGPT/ALT 17 U/L (12-78); SODIUM 140 mmol/L (136-145)
[2017-09-12 06:07] LABS: ALK PHOS 121 U/L (45-117); BILIRUBIN,TOTAL 0.2 mg/dL (0.2-1.0); TOT PROT 7.8 g/dl (6.4-8.2)
--- NOTE | 2017-09-12 07:03 | PDOC ---
*Physical Exam - Vital Signs Last Vital Signs Temp Pulse Resp BP Pulse Ox 98.1 F 89 18 100/83 98 09/12/17 04:58 09/12/17 04:58 09/12/17 04:58 09/12/17 04:58 09/12/17 04:58 ED Treatment Course - LABORATORY CBC & Chemistry Diagram: 09/12/17 05:15 09/12/17 05:15 - ADDITIONAL ORDERS Additional order review: Laboratory Results 09/12/17 09/12/17 05:15 05:15 PT with INR 12.30 H INR 1.09 Sodium 140 Potassium 3.7 Chloride 103 Carbon Dioxide 30 Anion Gap 7 L BUN 28 H Creatinine 1.5 H Creat Clearance w eGFR 36.76 Random Glucose 116 H Calcium 8.4 L Magnesium 1.9 Total Bilirubin 0.2 AST 16 ALT 17 Alkaline Phosphatase 121 H Creatine Kinase 237 H Troponin I < 0.02 Total Protein 7.8 Albumin 3.7 09/12/17 05:15 RBC 4.63 MCV 79.6 L MCHC 34.4 RDW 16.5 H D MPV 9.5 Neutrophils % 63.3 Lymphocytes % 25.3 Monocytes % 9.3 Eosinophils % 1.5 Basophils % 0.6 Medical Decision Making - Medical Decision Making 09/12/17 07:03 agree with care from FELICIA Lucero *DC/Admit/Observation/Transfer Diagnosis at time of Disposition: Syncope and collapse Head injury Qualifiers: Encounter type: initial encounter Qualified Code(s): S09.90XA - Unspecified injury of head, initial encounter - Referrals - Patient Instructions - Post Discharge Activity
--- NOTE | 2017-09-12 07:56 | PDOC ---
*Physical Exam - Vital Signs Last Vital Signs Temp Pulse Resp BP Pulse Ox 98.1 F 89 18 100/83 98 09/12/17 04:58 09/12/17 04:58 09/12/17 04:58 09/12/17 04:58 09/12/17 04:58 - Physical Exam General Appearance: Yes: Nourished, Appropriately Dressed. No: Apparent Distress Respiratory/Chest: positive: Lungs Clear, Normal Breath Sounds. negative: Respiratory Distress, Accessory Muscle Use, Rales, Rhonchi, Wheezing Cardiovascular: positive: Regular Rhythm, Regular Rate, S1, S2 (present). negative: Murmur Integumentary: positive: Normal Color, Dry, Warm Neurologic: positive: field sales specialist II-XII NML intact, Fully Oriented, Alert, Normal Mood/ Affect, Normal Response, Motor Strength 10/05 ED Treatment Course - LABORATORY CBC & Chemistry Diagram: 09/12/17 05:15 09/12/17 05:15 - ADDITIONAL ORDERS Additional order review: Laboratory Results 09/12/17 09/12/17 05:15 05:15 PT with INR 12.30 H INR 1.09 Sodium 140 Potassium 3.7 Chloride 103 Carbon Dioxide 30 Anion Gap 7 L BUN 28 H Creatinine 1.5 H Creat Clearance w eGFR 36.76 Random Glucose 116 H Calcium 8.4 L Magnesium 1.9 Total Bilirubin 0.2 AST 16 ALT 17 Alkaline Phosphatase 121 H Creatine Kinase 237 H Troponin I < 0.02 Total Protein 7.8 Albumin 3.7 09/12/17 05:15 RBC 4.63 MCV 79.6 L MCHC 34.4 RDW 16.5 H D MPV 9.5 Neutrophils % 63.3 Lymphocytes % 25.3 Monocytes % 9.3 Eosinophils % 1.5 Basophils % 0.6 Medical Decision Making - Medical Decision Making 09/12/17 09:14 Patient endorsed to me at signout from FELICIA Lucero. Patient fell last night and stated it was a syncopal episode. All lab work is grossly normal with the exception of creatinine which is slightly elevated at 1.5. Head CT and neck CT are negative for fractures or bleeds. Patient is mentating back at baseline. Requesting pain medication. VSS, pt is afebrile. We'll treat with her home dose of oral morphine and discharge home at this time. *DC/Admit/Observation/Transfer Diagnosis at time of Disposition: Syncope and collapse Head injury Qualifiers: Encounter type: initial encounter Qualified Code(s): S09.90XA - Unspecified injury of head, initial encounter - Discharge Dispostion Disposition: HOME Condition at time of disposition: Stable Admit: No - Referrals - Patient Instructions Printed Discharge Instructions: How to Prevent Falls, DI for Closed Head Injury Additional Instructions: Your lab work and scans were normal today. Please follow-up with your primary care doctor this week. Please drink plenty of fluids. Please eat a well- balanced diet and take all of your medications as prescribed to prevent passing out. Return to the emergency department if you have fevers, chills, fainting symptoms , or if you have any changes in your symptoms. - Post Discharge Activity
[2017-09-12] MEDS ORDERED: morphine SO4 SUSTAINED ACTING 15 MG TABLET.SA PO ONE (09:10)
[2017-09-12] MEDS ORDERED: morphine SO4 SUSTAINED ACTING 15 MG TABLET.SA ONE (09:33)
[2017-09-12 10:34] VITALS: BP 103/74; PULSE 82
--- NOTE | 2017-09-12 13:29 | EKG ---
Test Reason : Blood Pressure : / mmHG Vent. Rate : 085 BPM Atrial Rate : 085 BPM P-R Int : 174 ms QRS Dur : 094 ms QT Int : 398 ms P-R-T Axes : 040 009 -01 degrees QTc Int : 473 ms NORMAL SINUS RHYTHM CANNOT RULE OUT ANTERIOR INFARCT , AGE UNDETERMINED ABNORMAL ECG WHEN COMPARED WITH ECG OF 21-JUN-2017 23:29, NO SIGNIFICANT CHANGE WAS FOUND Confirmed by NIALL DANIELS, ESTHELA ([id number]) on 09/12/2017 1:29:14 PM Referred By: Confirmed By:ESTHELA TIERNEY MD
== END 2017-09-12 10:30 | disposition home or self-care (01) ==
LOC: JER 04:44
DX: S09.8XXA Other specified injuries of head, initial encounter (principal); R55 Syncope and collapse; W18.39XA Other fall on same level, initial encounter; Y93.89 Activity, other specified; Y92.098 Other place in other non-institutional residence as the place of occurrence of the external cause; Y99.8 Other external cause status; D64.9 Anemia, unspecified; J45.909 Unspecified asthma, uncomplicated; I25.10 Atherosclerotic heart disease of native coronary artery without angina pectoris; I10 Essential (primary) hypertension; E11.9 Type 2 diabetes mellitus without complications; F31.9 Bipolar disorder, unspecified; F43.10 Post-traumatic stress disorder, unspecified; E03.9 Hypothyroidism, unspecified; Z87.11 Personal history of peptic ulcer disease
CPT/HCPCS: 36415; 70450-TC; 71046-TC-FY; 72125-TC; 73523-TC-FY; 80053; 82550; 82553; 83735; 84484; 85025; 85610; 93005; 93010; 99282-25

== ENCOUNTER 2017-09-18 16:52 | Emergency (ER) | payer OTHER ==
[2017-09-18 17:04] VITALS: BP 118/44; PULSE 80; TEMP 97.9; BMI 40.8
--- NOTE | 2017-09-18 20:31 | PDOC ---
History of Present Illness - General Chief Complaint: Injury Stated Complaint: FALL Time Seen by Provider: 09/18/17 20:19 - History of Present Illness Initial Comments: 09/18/17 20:34 51yo F with extensive medical history who presents after mechanical fall onto face. Pt states she lost her balance out of her wheelchair and fell face forward onto the ground. Pt reports putting her hands up to break her fall, however still hit her head in addition to her hands and knees. Pt reports head pain currently and endorses using Eliquis for AC. Pt denies any loss of consciousness, difficulty swallowing or breathing. Pt reports some chronic pain on her neck, however the pain has worsened. Past History - Past Medical History Allergies/Adverse Reactions: Allergies Allergy/AdvReac Type Severity Reaction Status Date / Time hydromorphone HCl Allergy Intermediate Itching Verified 09/18/17 16:57 [From Dilaudid] amoxicillin [Amoxicillin] Allergy Verified 09/18/17 16:57 ampicillin Allergy Verified 09/18/17 16:57 aspirin Allergy Difficulty Verified 09/18/17 16:57 Breathing cranberry Allergy Rash Verified 09/18/17 16:57 doxycycline Allergy Rash Verified 09/18/17 16:57 Fish Containing Products Allergy Difficulty Verified 09/18/17 16:57 Breathing haloperidol [From Haldol] Allergy Rash Verified 09/18/17 16:57 haloperidol lactate Allergy Rash Verified 09/18/17 16:57 [From Haldol] ibuprofen [From Motrin] Allergy Difficulty Verified 09/18/17 16:57 Breathing ketorolac tromethamine Allergy Rash Verified 09/18/17 16:57 [From Toradol] levofloxacin [From Levaquin] Allergy Rash Verified 09/18/17 16:57 milk Allergy Difficulty Verified 09/18/17 16:57 Breathing oxycodone HCl [From Percocet] Allergy Rash Verified 09/18/17 16:57 Penicillins Allergy Difficulty Verified 09/18/17 16:57 Breathing sulfamethoxazole Allergy Rash Verified 09/18/17 16:57 [From Bactrim] trimethoprim [From Bactrim] Allergy Verified 09/18/17 16:57 warfarin sodium Allergy Verified 09/18/17 16:57 [From Coumadin] Gravy Allergy Unknown Uncoded 09/18/17 16:57 Cranberry/Cranberry juice Allergy Uncoded 09/18/17 16:57 raw tomato Allergy Uncoded 09/18/17 16:57 Home Medications: Ambulatory Orders Albuterol Sulfate Inhaler - [Ventolin Hfa Inhaler -] 1 inh PO Q4H PRN 06/15/17 Clonazepam 1 mg PO Q12H 06/15/17 Divalproex [Depakote -] 750 mg PO HS 06/15/17 Ferrous Sulfate 325 mg PO DAILY 06/15/17 Fluoxetine HCl 40 mg PO DAILY 06/15/17 Gabapentin 300 mg PO TID 06/15/17 Levothyroxine [Synthroid -] 50 mcg PO DAILY 06/15/17 Nitroglycerin Sublingual [Nitrostat -] 0.6 mg SL PRN PRN 06/15/17 Polyethylene Glycol 3350 [Clearlax] 17 gm PO DAILY 06/15/17 Quetiapine Fumarate [Seroquel] 300 mg PO HS 06/15/17 Sennosides/Docusate Sodium [Senna Laxative Tablet] 2 each PO HS 06/15/17 Apixaban [Eliquis -] 5 mg PO BID tablet 06/23/17 Budesonide/Formeterol Fumarate [SYMBICORT 80/4.5mcg -] 1 inh PO DAILY 06/23/17 Bupropion HCl [Wellbutrin Xl -] 300 mg PO DAILY tab.sr.24h 06/23/17 Docusate Sodium [Colace] 300 mg PO HS 06/23/17 Furosemide [Lasix -] 40 mg PO DAILY tablet 06/23/17 Metoprolol Succinate [Toprol Xl] 12.5 mg PO BID 06/23/17 Morphine Sulfate [Morphine Sulfate ER] 30 mg PO Q6H PRN 06/23/17 Pantoprazole Sodium [Protonix -] 40 mg PO DAILY tablet.ec 06/23/17 Benztropine Mesylate [Cogentin -] 0.5 mg PO BID 09/12/17 Metformin HCl 500 mg PO BID 09/12/17 Simvastatin [Zocor -] 40 mg PO HS 09/12/17 Anemia: Yes Asthma: Yes Cancer: No Cardiac Disorders: Yes (chest pain, CAD, SD x3) CVA: Yes (CVA x3, TIA, left sided residual) COPD: No CHF: No DVT: No Dementia: No Diabetes: Yes GI Disorders: Yes (PEPTIC ULCER) Disorders: No HTN: Yes Hypercholesterolemia: Yes Liver Disease: No Psychiatric Problems: Yes (BIPOLAR, POST TRAMATIC STRESS) Seizures: No Thyroid Disease: No - Surgical History Abdominal Surgery: Yes Appendectomy: No Cardiac Surgery: No Cholecystectomy: No Lung Surgery: No Neurologic Surgery: No Orthopedic Surgery: Yes - Immunization History Immunization Up to Date: No - Suicide/Smoking/Psychosocial Hx Smoking Status: Yes Smoking History: Never smoked Have you smoked in the past 12 months: No Number of Cigarettes Smoked Daily: 1 If you are a former smoker, when did you quit?: 09/18/2014 Cigars Per Day: 20 Information on smoking cessation initiated: No 'Breaking Loose' booklet given: 10/30/14 Hx Alcohol Use: No Drug/Substance Use Hx: No Substance Use Type: None Hx Substance Use Treatment: Yes Review of Systems - Review of Systems Constitutional: No: Chills, Fever, Night Sweats HEENTM: No: Blurred Vision, Ear Pain, Ear Discharge, Nose Congestion, Hearing Loss, Throat Pain Respiratory: No: Cough, Shortness of Breath, Wheezing Cardiac (ROS): No: Chest Pain, Lightheadedness, Palpitations, Syncope, Chest Tightness ABD/GI: No: Abdominal Distended, Constipated, Diarrhea, Nausea, Vomiting Musculoskeletal: Yes: Neck Pain. No: Back Pain Neurological: No: Headache, Numbness, Tingling, Dizziness Psychiatric: No: Anxiety, Depression Hematologic/Lymphatic: No: Easy Bleeding, Easy Bruising *Physical Exam - Vital Signs Last Vital Signs Temp Pulse Resp BP Pulse Ox 97.9 F 80 18 118/44 96 09/18/17 16:57 09/18/17 16:57 09/18/17 16:57 09/18/17 16:57 09/18/17 16:57 - Physical Exam Comments: 09/18/17 23:27 GEN: NAD, awake, alert HEENT: NC/AT, EOMI, SALOME, sclera anicteric, no ecchymotic areas or other abrasions noted on face, tenderness to palpation at maxillary sinus area, no rhinorrhea or otorhea, no gross deformities NECK: Slight pain with palpation of posterior neck, structurally stable, soft LUNGS: CTA b/l CARDIAC: RRR, no murmurs appreciated ABD: Soft, NT/ND, normoactive BS, no guarding EXT: 2+ DP pulses, no edema NEURO: Facial symmetry, mumbling words, but no slurring, sensation dulled in R- sided CN V2 area compared with L-sided CN V2 area. Otherwise normal sensation intact Medical Decision Making - Medical Decision Making 09/18/17 20:32 Suspicious for fracture of facial bones Ordered Head, Facial bone, and Cervical spine CT noncontrast for evaluation of fracture 09/18/17 23:[address] report 09/19/17 01:12 Negative c-spine CT for fractures No facial or orbital fractures on facial bone CT Awaiting Head CT report 09/19/17 01:[address] negative for any acute intracranial pathology and fractures Can be discharged back to her facility *DC/Admit/Observation/Transfer Diagnosis at time of Disposition: Face pain Accidental fall Qualifiers: Encounter type: initial encounter Qualified Code(s): W19.XXXA - Unspecified fall, initial encounter - Discharge Dispostion Disposition: HOME Condition at time of disposition: Stable Admit: No - Referrals - Patient Instructions Printed Discharge Instructions: How to Prevent Falls Additional Instructions: You were seen here after your fall. Your CAT scans of your head were all negative for any fractures Your pain is most likely from the initial fall and will most likely get better with time --If you have pain please take over the counter tylenol or advil Please try to be careful when doing your errands. - Post Discharge Activity
--- NOTE | 2017-09-18 20:36 | PDOC ---
Attending Attestation - HPI HPI: 09/18/17 21:24 The patient is a 51-year-old female, with a past medical history of HTN, HLD, NIDDM, CAD, COPD, depression, and Schizoaffective disorder with depressed mood and auditory hallucinations, who presents to the ED s/p mechanical fall from wheelchair. The patient states that she fell out of her wheelchair, hitting her hands, knees, and face on the ground. She denies any loss of consciousness. The patient is on Eliquis and reports taking her medication today. She denies having difficulty swallowing or difficulty breathing. The patient denies any vision changes or other injuries. - Physicial Exam PE: 09/18/17 21:28 GENERAL: Well developed, well nourished. Awake and alert. No acute distress. HEENT: Normocephalic, atraumatic. PERRLA, EOMI. No conjunctival pallor. Sclera are non- icteric. Moist mucous membranes. Oropharynx is clear. NECK: Supple. Full ROM. No JVD. Carotid pulses 2+ and symmetric, without bruits. No thyromegaly. No lymphadenopathy. CARDIOVASCULAR: Regular rate and rhythm. No murmurs, rubs, or gallops. Distal pulses are 2+ and symmetric. PULMONARY: No evidence of respiratory distress. Lungs clear to auscultation bilaterally. No wheezing, rales or rhonchi. ABDOMINAL: Soft. Non-tender. Non-distended. No rebound or guarding. No organomegaly. Normoactive bowel sounds. MUSCULOSKELETAL Normal range of motion at all joints. No bony deformities or tenderness. No CVA tenderness. EXTREMITIES: No cyanosis. No clubbing. No edema. No calf tenderness. SKIN: Warm and dry. Normal capillary refill. No rashes. No jaundice. NEUROLOGICAL: Alert, awake, appropriate. PSYCHIATRIC: Cooperative. Good eye contact. Appropriate mood and affect. <Christy Lamar - Last Filed: 09/18/17 21:24> - Resident Resident Name: Jigar Vargas - ED Attending Attestation I have performed the following: I have examined & evaluated the patient, The case was reviewed & discussed with the resident, I agree w/resident's findings & plan, Exceptions are as noted - Medical Decision Making 09/19/17 19:42 Pt treated and released <Marcellus Castaneda - Last Filed: 09/19/17 19:42> Attestations - Attestations 09/18/17 21:30 Documentation prepared by Christy Lamar, acting as pediatric medical assistant for Marcellus Castaneda MD. <Christy Lamar - Last Filed: 09/18/17 21:24>
== END 2017-09-19 03:25 | disposition home or self-care (01) ==
LOC: JER 16:52
DX: G50.1 Atypical facial pain (principal); W05.0XXA Fall from non-moving wheelchair, initial encounter; Y93.89 Activity, other specified; Y92.9 Unspecified place or not applicable; Z87.891 Personal history of nicotine dependence; I10 Essential (primary) hypertension; J45.909 Unspecified asthma, uncomplicated; I25.10 Atherosclerotic heart disease of native coronary artery without angina pectoris; I25.2 Old myocardial infarction; F31.9 Bipolar disorder, unspecified
CPT/HCPCS: 70450-TC; 70486-TC; 72125-TC; 99281-25

== ENCOUNTER 2017-09-23 11:41 | Emergency (ER) | payer OTHER ==
[2017-09-23 12:03] VITALS: BP 131/61; PULSE 78; TEMP 98.1; BMI 39.9
--- NOTE | 2017-09-23 12:22 | EKG ---
Test Reason : Blood Pressure : / mmHG Vent. Rate : 074 BPM Atrial Rate : 074 BPM P-R Int : 154 ms QRS Dur : 090 ms QT Int : 396 ms P-R-T Axes : 034 009 -17 degrees QTc Int : 439 ms NORMAL SINUS RHYTHM NONSPECIFIC T WAVE ABNORMALITY ABNORMAL ECG WHEN COMPARED WITH ECG OF 12-SEP-2017 05:26, NO SIGNIFICANT CHANGE WAS FOUND Confirmed by ANTONIO TIJERINA MD ([id number]) on 09/23/2017 12:21:42 PM Referred By: Confirmed By:ANTONIO TIJERINA MD
--- NOTE | 2017-09-23 12:26 | PDOC ---
Attending Attestation - Resident Resident Name: Nova Vasquez - ED Attending Attestation I have performed the following: I have examined & evaluated the patient, The case was reviewed & discussed with the resident, I agree w/resident's findings & plan, Exceptions are as noted - HPI HPI: 09/23/17 12:16 51 f with h/o copd, cad, htn hld, dm bipolar schizoaffective sent from [facility] for concerns for pain. 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 no witnessed emesis.. do have concerns pt likes to frequently go hospital. pt was complaining of pain, which was a vague complaint, initially stated back pain, then lower leg pain. no f/c. no other complaints. pt was seen in ED 6 days ago for a unwitnessed fall out of wheelchair. - Physicial Exam PE: 09/23/17 12:19 awake alert lungs clear bilaterally, heart rrr no mrg. abd soft obese nt. no midline spinal tenderness Heart Score/ECG Review #1 General ECG Interpretation: Sinus Rhythm, Normal Rate (74), Normal Intervals, No acute ischemic changes
--- NOTE | 2017-09-23 12:43 | PDOC ---
History of Present Illness - General Chief Complaint: Pain Stated Complaint: PAIN Time Seen by Provider: 09/23/17 12:12 History Source: Patient, Care Provider (nurse case management at [facility]), EMS Exam Limitations: No Limitations - History of Present Illness Initial Comments: 51 YOF well known to the ED with h/o CAD, COPD, HTN, HLD, DM, bipolar disorder, and schizoaffective disorder who presents from [facility] c/o back pain and vomiting. The patient is unable to give her relevant medical history and current symptoms. [facility] ([facility]] staff states that she has been complaining of all-over bodily pain and vomiting. She has fallen multiple times in the past few weeks and was seen here in the ED about a week ago for one such fall. Past History - Past Medical History Allergies/Adverse Reactions: Allergies Allergy/AdvReac Type Severity Reaction Status Date / Time hydromorphone HCl Allergy Intermediate Itching Verified 09/23/17 12:01 [From Dilaudid] amoxicillin [Amoxicillin] Allergy Verified 09/23/17 12:01 ampicillin Allergy Verified 09/23/17 12:01 aspirin Allergy Difficulty Verified 09/23/17 12:01 Breathing cranberry Allergy Rash Verified 09/23/17 12:01 doxycycline Allergy Rash Verified 09/23/17 12:01 Fish Containing Products Allergy Difficulty Verified 09/23/17 12:01 Breathing haloperidol [From Haldol] Allergy Rash Verified 09/23/17 12:01 haloperidol lactate Allergy Rash Verified 09/23/17 12:01 [From Haldol] ibuprofen [From Motrin] Allergy Difficulty Verified 09/23/17 12:01 Breathing ketorolac tromethamine Allergy Rash Verified 09/23/17 12:01 [From Toradol] levofloxacin [From Levaquin] Allergy Rash Verified 09/23/17 12:01 milk Allergy Difficulty Verified 09/23/17 12:01 Breathing oxycodone HCl [From Percocet] Allergy Rash Verified 09/23/17 12:01 Penicillins Allergy Difficulty Verified 09/23/17 12:01 Breathing sulfamethoxazole Allergy Rash Verified 09/23/17 12:01 [From Bactrim] trimethoprim [From Bactrim] Allergy Verified 09/23/17 12:01 warfarin sodium Allergy Verified 09/23/17 12:01 [From Coumadin] Gravy Allergy Unknown Uncoded 09/23/17 12:01 Cranberry/Cranberry juice Allergy Uncoded 09/23/17 12:01 raw tomato Allergy Uncoded 09/23/17 12:01 Home Medications: Ambulatory Orders Albuterol Sulfate Inhaler - [Ventolin Hfa Inhaler -] 1 inh PO Q4H PRN 06/15/17 Clonazepam 1 mg PO Q12H 06/15/17 Divalproex [Depakote -] 750 mg PO HS 06/15/17 Ferrous Sulfate 325 mg PO DAILY 06/15/17 Fluoxetine HCl 40 mg PO DAILY 06/15/17 Gabapentin 300 mg PO TID 06/15/17 Levothyroxine [Synthroid -] 50 mcg PO DAILY 06/15/17 Nitroglycerin Sublingual [Nitrostat -] 0.6 mg SL PRN PRN 06/15/17 Polyethylene Glycol 3350 [Clearlax] 17 gm PO DAILY 06/15/17 Quetiapine Fumarate [Seroquel] 300 mg PO HS 06/15/17 Sennosides/Docusate Sodium [Senna Laxative Tablet] 2 each PO HS 06/15/17 Apixaban [Eliquis -] 5 mg PO BID tablet 06/23/17 Budesonide/Formeterol Fumarate [SYMBICORT 80/4.5mcg -] 1 inh PO DAILY 06/23/17 Bupropion HCl [Wellbutrin Xl -] 300 mg PO DAILY tab.sr.24h 06/23/17 Docusate Sodium [Colace] 300 mg PO HS 06/23/17 Furosemide [Lasix -] 40 mg PO DAILY tablet 06/23/17 Metoprolol Succinate [Toprol Xl] 12.5 mg PO BID 06/23/17 Morphine Sulfate [Morphine Sulfate ER] 30 mg PO Q6H PRN 06/23/17 Pantoprazole Sodium [Protonix -] 40 mg PO DAILY tablet.ec 06/23/17 Benztropine Mesylate [Cogentin -] 0.5 mg PO BID 09/12/17 Metformin HCl 500 mg PO BID 09/12/17 Simvastatin [Zocor -] 40 mg PO HS 09/12/17 Anemia: Yes Asthma: Yes Cancer: No Cardiac Disorders: Yes (chest pain, CAD, AR x3) CVA: Yes (CVA x3, TIA, left sided residual) COPD: No CHF: No DVT: No Dementia: No Diabetes: Yes GI Disorders: Yes (PEPTIC ULCER) Disorders: No HTN: Yes Hypercholesterolemia: Yes Liver Disease: No Psychiatric Problems: Yes (BIPOLAR, POST TRAMATIC STRESS) Seizures: No Thyroid Disease: No - Surgical History Abdominal Surgery: Yes Appendectomy: No Cardiac Surgery: No Cholecystectomy: No Lung Surgery: No Neurologic Surgery: No Orthopedic Surgery: Yes - Immunization History Immunization Up to Date: No - Suicide/Smoking/Psychosocial Hx Smoking Status: Yes Smoking History: Never smoked Have you smoked in the past 12 months: No Number of Cigarettes Smoked Daily: 1 If you are a former smoker, when did you quit?: 09/18/2014 Cigars Per Day: 20 Information on smoking cessation initiated: No 'Breaking Loose' booklet given: 10/30/14 Hx Alcohol Use: No Drug/Substance Use Hx: No Substance Use Type: None Hx Substance Use Treatment: Yes Review of Systems - Review of Systems Able to Perform ROS?: Yes Constitutional: No: Chills, Fever, Unexplained wgt Loss HEENTM: No: Nose Congestion, Throat Pain Respiratory: No: Cough, Shortness of Breath Cardiac (ROS): No: Chest Pain, Palpitations ABD/GI: No: Constipated, Diarrhea, Nausea, Vomiting : No: Burning, Dysuria Musculoskeletal: Yes: Back Pain. No: Neck Pain Integumentary: No: Bruising, Rash Neurological: No: Headache, Numbness, Tingling, Weakness, Dizziness Endocrine: No: Unexplained Weight Gain, Unexplained Weight Loss *Physical Exam - Vital Signs Last Vital Signs Temp Pulse Resp BP Pulse Ox 98.1 F 78 20 131/61 09/23/17 12:01 09/23/17 12:01 09/23/17 12:01 09/23/17 12:01 - Physical Exam General Appearance: Yes: Nourished, Appropriately Dressed, Mild Distress, Obese , Other (alert, oriented, bizarre affect, no eye contact, but answering questions appropriately in 1-2 word sentences) HEENT: positive: EOMI, LINDA, Normal Voice, Hearing Grossly Normal. negative: Scleral Icterus (R), Scleral Icterus (L), Nasal Congestion Neck: positive: Trachea midline, Supple. negative: Tender, Rigid Respiratory/Chest: positive: Lungs Clear, Normal Breath Sounds. negative: Respiratory Distress, Crackles, Rhonchi, Stridor, Wheezing Cardiovascular: positive: Regular Rhythm, Regular Rate. negative: Edema, JVD, Murmur Gastrointestinal/Abdominal: positive: Normal Bowel Sounds, Soft, Other (obese, nontender, no midline pulsatile masses). negative: Tender, Organomegaly, Pulsatile Mass, Guarding Musculoskeletal: positive: Normal Inspection, Other (patient notes pain all over back and winces when skin is lightly touched, but with distraction and use of stethoscope to palpate, the patient is nontender at any point in the midline , no paraspinous tenderness, no muscle spasm, no skin changes). negative: Decreased Range of Motion Extremity: positive: Normal Capillary Refill, Normal Inspection, Normal Range of Motion. negative: Tender, Cyanosis Integumentary: positive: Normal Color, Dry, Warm. 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 negative: Facial Droop , Numbness, Sensory Deficit, Confused Medical Decision Making - Medical Decision Making Patient with h/o with chronic back pain p/w acute exacerbation of same chronic back pain after fall last week. No new red flag symptoms (see HPI). Initial Vital Signs Temp Pulse Resp BP 98.1 F 78 20 131/61 09/23/17 12:09/23/17 12:01 09/23/17 12:09/23/17 12:01 Exam: no point tenderness to midline CTL spine DDX IBNLT: UTI, pyelonephritis, DDD, DJD, osteophyte, compression fxr, other vertebral or spinous process fxr; much LL malignancy, meningitis, or other more concerning etiology. W/U ordered: UA, UCx, LS XR, EKG UA is negative for e/o UTI or other pathology. LS XR is unremarkable. Reassessment: Exam is benign Patient is given 975 mg Tylenol for back pain. REPT VITALS The patient has gotten significant relief of symptoms with ED medications. They are appropriate for discharge with close outpatient follow up. The patient is comfortable with this plan and will follow up with their PCP in 1 -3 days. They are counseled on importance of proactive pain management and neurosurgery follow up. They state they will be able to follow up in the next 1-3 days. Return precautions are discussed and they will come back to the ER if necessary. *DC/Admit/Observation/Transfer Diagnosis at time of Disposition: Chronic low back pain Qualifiers: Back pain laterality: unspecified Sciatica presence: unspecified whether sciatica present Qualified Code(s): M54.5 - Low back pain - Discharge Dispostion Disposition: HOME Condition at time of disposition: Stable Admit: No - Referrals Referrals: Fernando Serrano [Primary Care Provider] - - Patient Instructions Printed Discharge Instructions: DI for Low Back Pain, DI for Thoracic Back Pain Additional Instructions: You were seen in the ER for an acute flare-up of your chronic back pain. We gave you Tylenol which helped with your pain. We are giving you referral information for one of our neurosurgeons; please follow up with them or with your own neurosurgeon. Please also follow up with your regular PCP doctor in 1- 3 days, and discuss changing your pain management regimen so that you can get on top of your chronic back pain before getting to the point where you need to come to the ER. Call their clinic as soon as possible, tell them you were seen in the ER for back pain, and tell them you need an appointment. If you have any new or worsening symptoms please come back to the ER at any time (24 hours a day ), especially for fever, new numbness new tingling new weakness, new urinary or bowel incontinence or retention, or other new symptoms. If you are having severe or life threatening symptoms, or symptoms that make it unsafe to drive or have someone drive you, please call 911. - Post Discharge Activity
[2017-09-23 12:55] LABS: URINE APPEARANCE CLEAR; URINE BILIRUBIN NEGATIVE (<2.0 mg/dL); URINE BLOOD NEGATIVE (NEGATIVE); URINE COLOR LTYELLOW; URINE GLUCOSE (UA) NEGATIVE (NEGATIVE); URINE KETONE NEGATIVE (NEGATIVE); URINE LEUK ESTERASE NEGATIVE (NEGATIVE); URINE NITRITE NEGATIVE (NEGATIVE); URINE PROTEIN NEGATIVE (NEGATIVE); URINE UROBILINOGEN NEGATIVE mg/dL (0.2-1.0)
[2017-09-23] MEDS ORDERED: IBUPROFEN 400 MG TABLET (FP) PO ONE ×2 (16:13)
[2017-09-23] MEDS ORDERED: ACETAMINOPHEN 500 MG TABLET (FP) PO ONE (16:14)
[2017-09-23] MEDS ORDERED: ACETAMINOPHEN 325 MG TABLET (FP) ONE (16:20)
== END 2017-09-23 16:44 | disposition home or self-care (01) ==
LOC: JER 11:41
DX: M54.5 Low back pain (principal); G89.29 Other chronic pain; I25.10 Atherosclerotic heart disease of native coronary artery without angina pectoris; I10 Essential (primary) hypertension; E11.9 Type 2 diabetes mellitus without complications; Z79.84 Long term (current) use of oral hypoglycemic drugs; E78.00 Pure hypercholesterolemia, unspecified; J44.9 Chronic obstructive pulmonary disease, unspecified; F31.9 Bipolar disorder, unspecified; F25.9 Schizoaffective disorder, unspecified; I69.854 Hemiplegia and hemiparesis following other cerebrovascular disease affecting left non-dominant side; Z88.8 Allergy status to other drugs, medicaments and biological substances; Z91.018 Allergy to other foods
CPT/HCPCS: 72100-TC-FY; 81003; 93005; 93010; 99281-25

== ENCOUNTER 2017-11-15 15:34 | Emergency (ER) | payer OTHER ==
[2017-11-15 16:05] VITALS: BMI 34.7
--- NOTE | 2017-11-15 16:38 | PDOC ---
History of Present Illness - General History Source: Patient Exam Limitations: No Limitations - History of Present Illness Initial Comments: 11/15/17 17:52 The patient is a 52 year old female from [facility], with a significant past medical history of anemia, asthma, cad, ME (3x), CVA, TIA, peptic ulcer, hypertension, hyperlipidemia, and diabetes, who presents to the emergency department for evaluation of chest pain. The patient reports midsternal chest pain starting at 1pm today. The patient describes the midsternal chest pain as sharp, radiating to the left side, with associated numbness. The patient reports being discharged from [facility] on Saturday , and states she did not receive her prescription for Lasix. She reports moderate right hip pain secondary to fluid retention in right leg. The patient admits to smoking crack yesterday evening, but denies subsequent chest pain. The patient denies shortness of breath, headache, dizziness. Denies fevers, chills, nausea, vomiting, diarrhea, and constipation. Denies dysuria, frequency, urgency, and hematuria. Allergies: As listed in nursing notes. Past surgical history: Abdominal surgery. Social history: Current everyday smoker. Patient admits to smoking crack. No reported alcohol consumption. PCP: Dr. Fernando Serrano ([phone]) <Dia Henriquez - Last Filed: 11/15/17 17:52> <Bony Orantes - Last Filed: 11/15/17 19:06> - General Chief Complaint: Chest Pain Stated Complaint: CHEST PAIN Time Seen by Provider: 11/15/17 16:37 Past History <Dia Henriquez - Last Filed: 11/15/17 17:52> - Past Medical History Anemia: Yes Asthma: Yes Cancer: No Cardiac Disorders: Yes (chest pain, CAD, [place] x3) CVA: Yes (CVA x3, TIA, left sided residual) COPD: No CHF: No DVT: No Dementia: No Diabetes: Yes GI Disorders: Yes (PEPTIC ULCER) Disorders: No HTN: Yes Hypercholesterolemia: Yes Liver Disease: No Psychiatric Problems: Yes (BIPOLAR, POST TRAMATIC STRESS) Seizures: No Thyroid Disease: No - Surgical History Abdominal Surgery: Yes Appendectomy: No Cardiac Surgery: No Cholecystectomy: No Lung Surgery: No Neurologic Surgery: No Orthopedic Surgery: Yes - Immunization History Immunization Up to Date: No - Suicide/Smoking/Psychosocial Hx Smoking Status: Yes Smoking History: Former smoker Have you smoked in the past 12 months: No Number of Cigarettes Smoked Daily: 1 If you are a former smoker, when did you quit?: 09/18/2014 Cigars Per Day: 20 Information on smoking cessation initiated: No 'Breaking Loose' booklet given: 10/30/14 Hx Alcohol Use: No Drug/Substance Use Hx: No Substance Use Type: None Hx Substance Use Treatment: Yes <Bony Orantes - Last Filed: 11/15/17 19:06> - Past Medical History Allergies/Adverse Reactions: Allergies Allergy/AdvReac Type Severity Reaction Status Date / Time hydromorphone HCl Allergy Intermediate Itching Verified 11/15/17 15:59 [From Dilaudid] amoxicillin [Amoxicillin] Allergy Verified 11/15/17 15:59 ampicillin Allergy Verified 11/15/17 15:59 aspirin Allergy Difficulty Verified 11/15/17 15:59 Breathing cranberry Allergy Rash Verified 11/15/17 15:59 doxycycline Allergy Rash Verified 11/15/17 15:59 Fish Containing Products Allergy Difficulty Verified 11/15/17 15:59 Breathing haloperidol [From Haldol] Allergy Rash Verified 11/15/17 15:59 haloperidol lactate Allergy Rash Verified 11/15/17 15:59 [From Haldol] ibuprofen [From Motrin] Allergy Difficulty Verified 11/15/17 15:59 Breathing ketorolac tromethamine Allergy Rash Verified 11/15/17 15:59 [From Toradol] levofloxacin [From Levaquin] Allergy Rash Verified 11/15/17 15:59 milk Allergy Difficulty Verified 11/15/17 15:59 Breathing oxycodone HCl [From Percocet] Allergy Rash Verified 11/15/17 15:59 Penicillins Allergy Difficulty Verified 11/15/17 15:59 Breathing sulfamethoxazole Allergy Rash Verified 11/15/17 15:59 [From Bactrim] trimethoprim [From Bactrim] Allergy Verified 11/15/17 15:59 warfarin sodium Allergy Verified 11/15/17 15:59 [From Coumadin] Gravy Allergy Unknown Uncoded 11/15/17 15:59 Cranberry/Cranberry juice Allergy Uncoded 11/15/17 15:59 raw tomato Allergy Uncoded 11/15/17 15:59 Home Medications: Ambulatory Orders Albuterol Sulfate Inhaler - [Ventolin Hfa Inhaler -] 1 inh PO Q4H PRN 06/15/17 Clonazepam 1 mg PO Q12H 06/15/17 Divalproex [Depakote -] 250 mg PO HS 06/15/17 Ferrous Sulfate 325 mg PO DAILY 06/15/17 Fluoxetine HCl 40 mg PO DAILY 06/15/17 Gabapentin 600 mg PO TID 06/15/17 Levothyroxine [Synthroid -] 50 mcg PO DAILY 06/15/17 Nitroglycerin Sublingual [Nitrostat -] 0.6 mg SL PRN PRN 06/15/17 Polyethylene Glycol 3350 [Clearlax] 17 gm PO DAILY 06/15/17 Quetiapine Fumarate [Seroquel] 200 mg PO HS 06/15/17 Sennosides/Docusate Sodium [Senna Laxative Tablet] 2 each PO HS 06/15/17 Apixaban [Eliquis -] 5 mg PO BID tablet 06/23/17 Budesonide/Formeterol Fumarate [SYMBICORT 80/4.5mcg -] 1 inh PO DAILY 06/23/17 Bupropion HCl [Wellbutrin Xl -] 300 mg PO DAILY tab.sr.24h 06/23/17 Docusate Sodium [Colace] 300 mg PO HS 06/23/17 Furosemide [Lasix -] 40 mg PO DAILY tablet 06/23/17 Metoprolol Succinate [Toprol Xl] 25 mg PO BID 06/23/17 Morphine Sulfate [Morphine Sulfate ER] 30 mg PO Q6H PRN 06/23/17 Pantoprazole Sodium [Protonix -] 40 mg PO DAILY tablet.ec 06/23/17 Simvastatin [Zocor -] 40 mg PO HS 09/12/17 metFORMIN HCL [Metformin HCl] 500 mg PO BID 09/12/17 Benztropine Mesylate [Cogentin -] 0.5 mg PO BID 09/23/17 Divalproex *ER* [Depakote *ER* -] 500 mg PO BID 09/23/17 Review of Systems - Review of Systems Able to Perform ROS?: Yes Comments:: A complete review of 10 out of 10 review of systems is taken and is negative apart from what is previously mentioned below and in the HPI. <Dia Henriquez - Last Filed: 11/15/17 17:52> *Physical Exam - Vital Signs Last Vital Signs Temp Pulse Resp BP Pulse Ox 98.9 F 94 H 20 139/78 98 11/15/17 15:59 11/15/17 15:59 11/15/17 15:59 11/15/17 15:59 11/15/17 15:59 - Physical Exam Comments: Vitals: Triage Vital signs reviewed General Appearance: no acute distress, well nourished well developed, Head: Atraumatic, normocephalic Neck: Supple Chest Wall: Nontender Cardiac: Regular rate and rhythm, no murmurs, no rubs, no gallops, Lungs: Clear to auscultation bilateral, good air movement bilaterally, Abdomen: Soft, nondistended, normal bowel sounds, nontender to palpation Extremities: Full range of motion to all extremities, no cyanosis, clubbing, or edema Skin: Warm and dry, no rashes or lesions, no petechiae Neuro: AOX3; Cranial Nerves 2-12 grossly c intact, Strength intact to all extremities, Sensation intact to all extremities, gait normal. Psych: normal mood, normal affect <Dia Henriquez - Last Filed: 11/15/17 17:52> - Vital Signs Last Vital Signs Temp Pulse Resp BP Pulse Ox 98.9 F 94 H 20 139/78 98 11/15/17 15:59 11/15/17 15:59 11/15/17 15:59 11/15/17 15:59 11/15/17 15:59 <Bony Orantes - Last Filed: 11/15/17 19:06> Heart Score/ECG Review - History History: Slightly suspicious - Electrocardiogram EKG: Normal - Age Age: 45-65 - Risk Factors Risk Factors Heart Score: Yes Hx Hypercholesterolemia, Yes Hx Hypertension, Yes Smoking History Based on the list above the patient has:: >/=3 risk factors or Hx atherosclerotic disease - Troponin Troponin: </= normal limit - Score Heart Score - Total: 3 - ECG Impressions Comment:: 11/15/17 19:04 EKG performed that 1615. Demonstrates sinus rhythm 92 bpm. Normal intervals normal QTC. No ST elevations. No T-wave inversions. Interpreted by me. <Bony Orantes - Last Filed: 11/15/17 19:06> ED Treatment Course - LABORATORY CBC & Chemistry Diagram: 11/15/17 17:11 11/15/17 17:11 - ADDITIONAL ORDERS Additional order review: 11/15/17 17:11 RBC 4.07 MCV 81.4 MCHC 34.3 RDW 17.5 H MPV 9.9 Neutrophils % 65.3 Lymphocytes % 22.6 Monocytes % 10.4 H Eosinophils % 1.0 Basophils % 0.7 <Dia Henriquez - Last Filed: 11/15/17 17:52> - LABORATORY CBC & Chemistry Diagram: 11/15/17 17:11 11/15/17 17:11 <Bony Orantes - Last Filed: 11/15/17 19:06> Medical Decision Making - Medical Decision Making The patient is a 52 year old female from [facility], with a significant past medical history of anemia, asthma, cad, ME (3x), CVA, TIA, peptic ulcer, hypertension, hyperlipidemia, and diabetes, who presents to the emergency department for evaluation of chest pain. Plan: Labs ECG Chest X-ray <Dia Henriquez - Last Filed: 11/15/17 17:52> - Medical Decision Making Atypical chest discomfort in the context of smoking crack cocaine last night. Nonischemic EKG. First troponin negative. Given age and risk factors and onset of symptoms we'll check a second troponin. If two troponin negative patient's MACE less than 0.8% based on heart score stratification. Dr. Bates to follow-up results and disposition patient. Signout 7 PM <Bony Orantes - Last Filed: 11/15/17 19:06> *DC/Admit/Observation/Transfer - Attestations Scribe Attestion: Documentation prepared by Dia Henriquez, acting as medical office supervisor for Bony Orantes MD. <Dia Henriquez - Last Filed: 11/15/17 17:52> <Bony Orantes - Last Filed: 11/15/17 19:06> Diagnosis at time of Disposition: Chest pain Qualifiers: Chest pain type: unspecified Qualified Code(s): R07.9 - Chest pain, unspecified - Referrals Referrals: Fernando Serrano [Primary Care Provider] - - Patient Instructions - Post Discharge Activity
[2017-11-15 17:24] LABS: BASO % 0.7 % (0-2.0); HEMATOCRIT 33.1 % (32.4-45.2); HEMOGLOBIN 11.3 GM/dL (10.7-15.3); LYMPH % 22.6 % (8-40); MCH 27.9 pg (25.7-33.7); MCHC 34.3 g/dl (32.0-36.0); MEAN CELL VOLUME 81.4 fl (80-96); MEAN PLT VOLUME 9.9 fl (7.5-11.1); MONO % 10.4 % (3.8-10.2); NEUT % 65.3 % (42.8-82.8); PLATELET COUNT 164 K/MM3 (134-434); RBC 4.07 M/mm3 (3.60-5.2); RDW 17.5 % (11.6-15.6); WHITE BLOOD COUNT 8.6 K/mm3 (4.0-10.0)
[2017-11-15 17:55] LABS: CHLORIDE 106 mmol/L (98-107); POTASSIUM 4.5 mmol/L (3.5-5.1); SODIUM 141 mmol/L (136-145)
[2017-11-15 18:19] LABS: ALBUMIN 3.2 g/dl (3.4-5.0); ALK PHOS 101 U/L (45-117); ANION GAP 7 (8-16); BILIRUBIN,TOTAL 0.3 mg/dL (0.2-1.0); BLOOD UREA NITROGEN 23 mg/dL (7-18); CALCIUM 8.6 mg/dL (8.5-10.1); CO2 28 mmol/L (21-32); CREATININE 1.4 mg/dL (0.55-1.02); GLUCOSE,RANDOM 84 mg/dL (74-106); SGOT/AST 20 U/L (15-37); SGPT/ALT 21 U/L (12-78); TOT PROT 7.2 g/dl (6.4-8.2)
[2017-11-15] MEDS ORDERED: ACETAMINOPHEN INJECTION 100 ML IVPB ONE (18:21)
[2017-11-15] MEDS: ACETAMINOPHEN 1000 MG/100 ML VIAL (NON FORMULARY) IVPB ONE ×2 (18:23→18:38)
[2017-11-15] MEDS ORDERED: ACETAMINOPHEN 325 MG TABLET (FP) PO ONE (21:11)
--- NOTE | 2017-11-15 21:33 | PDOC ---
*Physical Exam - Vital Signs Last Vital Signs Temp Pulse Resp BP Pulse Ox 98.9 F 85 22 111/55 98 11/15/17 15:59 11/15/17 21:08 11/15/17 21:08 11/15/17 21:08 11/15/17 21:08 ED Treatment Course - LABORATORY CBC & Chemistry Diagram: 11/15/17 17:11 11/15/17 17:11 - ADDITIONAL ORDERS Additional order review: Laboratory Results 11/15/17 17:11 Sodium 141 Potassium 4.5 Chloride 106 Carbon Dioxide 28 Anion Gap 7 L BUN 23 H Creatinine 1.4 H Creat Clearance w eGFR 39.64 Random Glucose 84 Calcium 8.6 Total Bilirubin 0.3 D AST 20 ALT 21 Alkaline Phosphatase 101 Troponin I < 0.02 Total Protein 7.2 Albumin 3.2 L 11/15/17 17:11 RBC 4.07 MCV 81.4 MCHC 34.3 RDW 17.5 H MPV 9.9 Neutrophils % 65.3 Lymphocytes % 22.6 Monocytes % 10.4 H Eosinophils % 1.0 Basophils % 0.7 - Medications Given in the ED: ED Medications Discontinued Medications Generic Name Dose Route Start Last Admin Trade Name Winston PRN Reason Stop Dose Admin Acetaminophen 1,000 mg 11/15/17 18:20 11/15/17 18:38 Ofirmev Injection - IVPB 11/15/17 18:21 1,000 mg ONCE ONE Administration Medical Decision Making - Medical Decision Making 11/15/17 21:33 I received this patient on sign out She has a h/o Schizophrenia S/p Cocaine use P/w chest pain Initial troponin negative Pt pending repeat troponin 11/15/17 22:07 Laboratory Tests 11/15/17 20:35 Creatine Kinase 183 Troponin I < 0.02 Clinical Impression: chest pain, initial presentation *DC/Admit/Observation/Transfer Diagnosis at time of Disposition: Chest pain Qualifiers: Chest pain type: unspecified Qualified Code(s): R07.9 - Chest pain, unspecified - Discharge Dispostion Disposition: HOME Condition at time of disposition: Stable Decision to Admit order: No - Referrals Referrals: Fernando Serrano [Primary Care Provider] - - Patient Instructions Printed Discharge Instructions: DI for Atypical Chest Pain - Post Discharge Activity
[2017-11-15] MEDS ORDERED: ACETAMINOPHEN 325 MG TABLET (FP) ONE (22:29)
[2017-11-16 00:17] VITALS: BP 106/61; PULSE 64; TEMP 98.5
--- NOTE | 2017-11-16 17:50 | EKG ---
Test Reason : Blood Pressure : / mmHG Vent. Rate : 092 BPM Atrial Rate : 092 BPM P-R Int : 136 ms QRS Dur : 096 ms QT Int : 378 ms P-R-T Axes : 034 010 041 degrees QTc Int : 467 ms NORMAL SINUS RHYTHM CANNOT RULE OUT ANTERIOR INFARCT , AGE UNDETERMINED ABNORMAL ECG WHEN COMPARED WITH ECG OF 23-SEP-2017 12:04, NO SIGNIFICANT CHANGE WAS FOUND Confirmed by ALEXANDER DANIELS, ANDRÉS ([id number]) on 11/16/2017 5:50:23 PM Referred By: Confirmed By:ANDRÉS MUNOZ MD
== END 2017-11-16 00:18 | disposition home or self-care (01) ==
LOC: JER 15:34
PROC: 3E033NZ Introduction of Analgesics, Hypnotics, Sedatives into Peripheral Vein, Percutaneous Approach (ICD-10-PCS; principal; 2017-11-15)
DX: R07.89 Other chest pain (principal); F14.90 Cocaine use, unspecified, uncomplicated; I25.2 Old myocardial infarction; I25.10 Atherosclerotic heart disease of native coronary artery without angina pectoris; I10 Essential (primary) hypertension; Z87.891 Personal history of nicotine dependence; E11.9 Type 2 diabetes mellitus without complications; Z79.84 Long term (current) use of oral hypoglycemic drugs; E78.5 Hyperlipidemia, unspecified; E78.00 Pure hypercholesterolemia, unspecified; F31.9 Bipolar disorder, unspecified; F43.10 Post-traumatic stress disorder, unspecified; I69.854 Hemiplegia and hemiparesis following other cerebrovascular disease affecting left non-dominant side; Z88.8 Allergy status to other drugs, medicaments and biological substances; Z91.018 Allergy to other foods
CPT/HCPCS: 36415; 71045-TC-FY; 80053; 82550; 82553; 84484; 85025; 93005; 93010; 96374; 99285-25; J0131

== ENCOUNTER 2017-11-22 17:42 | Emergency (ER) | payer OTHER ==
[2017-11-22 18:10] VITALS: BP 110/44; PULSE 67; TEMP 98.9; BMI 34.4
[2017-11-22] MEDS ORDERED: ACETAMINOPHEN 325 MG TABLET (FP) PO ONE (19:40)
[2017-11-22] MEDS ORDERED: SODIUM CHLORIDE 1,000 ML IV STA (19:56)
[2017-11-22] MEDS ORDERED: morphine SULFATE IMMEDIATE RELEASE 30 MG TAB PO ONE (19:57)
[2017-11-22] MEDS ORDERED: ACETAMINOPHEN 325 MG TABLET (FP) ONE (20:19)
[2017-11-22] MEDS ORDERED: morphine SO4 SUSTAINED ACTING 15 MG TABLET.SA ONE (20:20)
[2017-11-22 20:22] LABS: BASO % 0.6 % (0-2.0); EOS % 1.2 % (0-4.5); HEMATOCRIT 35.6 % (32.4-45.2); HEMOGLOBIN 12.1 GM/dL (10.7-15.3); LYMPH % 33.3 % (8-40); MEAN CELL VOLUME 82.4 fl (80-96); MEAN PLT VOLUME 9.7 fl (7.5-11.1); MONO % 7.8 % (3.8-10.2); NEUT % 57.1 % (42.8-82.8); PLATELET COUNT 207 K/MM3 (134-434); RBC 4.32 M/mm3 (3.60-5.2); RDW 17.3 % (11.6-15.6)
--- NOTE | 2017-11-22 20:33 | PDOC ---
Attending Attestation - Resident Resident Name: AnicetotylerNic - ED Attending Attestation I have performed the following: I have examined & evaluated the patient, The case was reviewed & discussed with the resident, I agree w/resident's findings & plan, Exceptions are as noted - Medical Decision Making 11/22/17 20:31 52yoF w/ likely conversion disorder, frequent falls/syncope, PSA chronic pain syndrome, frequent presnetaitons for "stroke/TIA" and "LA" without any confirmation of these diseases in chart. Pt presetns w/ typical episode of dizziness earlier today in setting of poor PO intake, fall w/ R back trauma on a water foundtain. Unlikely to have had syncope although pt reports " LOC" - labs - ekg - cxr, rib series - home narcotic dosing - likely DC after tn x 2 if all urnemarkble. <Terri Galvez - Last Filed: 11/22/17 20:31> - HPI HPI: 11/22/17 22:18 Patient is a 52 year old female with extensive psychiatric history and suspected conversion disorder, a self-reported significant past medical history of anemia, asthma, CAD, LA (3x), CVA, TIA, peptic ulcer, hypertension, hyperlipidemia, and diabetes, who presents o the ED with complaints of right rib pain, s/p fall that occurred just prior to ED arrival. Patient reports walking while smoking when she reports experiencing a dizzy spell causing her to fall onto the floor, landing on her right ribs on a drinking fountain, causing immediate pain. Pt states that she "syncopized" but also remembers 100% of the event without gaps. She reports experiencing shortness of breath, as well as associated nausea and lightheadedness before the initial episode. Patient reports experiencing decreased appetite recently, stating she has been forcing herself to eat. She reports coming into the ED for further evaluation after did not subside. Denies chest pain, Sob. Denies nausea, vomiting. Denies contact with sick individuals, out of state travelling. Denies head trauma, vision changes. Denies diarrhea, constipation Allergies: hydromorphone HCl,amoxicillin,ampicillin,aspirin,cranberry, doxycycline,Fish Containing Products,haloperidol,haloperidol lactate,ibuprofen, ketorolac tromethamine, levofloxacin,milk,oxycodone HCl,Penicillins, sulfamethoxazole, trimethoprim,warfarin sodium, Gravy, Cranberry/Cranberry juice ,raw tomato. Social history: From [place]. No alcohol. Current smoker. + PSA w/ marijuana, ecstacy, cocaine, meth Surgical history: None PMD: Dr. Navarro [facility] - Physicial Exam PE: 11/22/17 22:18 NAD EOMI, LINDA MMM, OP WNL NCAT, no midline cervical tenderness RRR, nl s1/s2, no m/r/g CTABL, no w/r/r DIffuse Posterior Mild right back tenderness. Soft, NTND No edema, WWP, no rash Neuro grossly intact, gait WNL, moving all 4 A&O x 3, mood/affect WNL. <Galdino Meza - Last Filed: 11/22/17 22:19>
[2017-11-22 20:34] LABS: INR 1.05 (0.82-1.09); PROTHROMBIN TIME (PATIENT) 11.9 SEC (9.7-13.0)
[2017-11-22] MEDS ORDERED: METOCLOPRAMIDE HCL INJECTION 10 MG/2 ML VIAL IVPUSH ONE (20:42)
[2017-11-22] MEDS ORDERED: METOCLOPRAMIDE HCL INJECTION 10 MG/2 ML VIAL ONE (21:03)
--- NOTE | 2017-11-22 21:29 | PDOC ---
History of Present Illness - General Chief Complaint: Injury Stated Complaint: FALL Time Seen by Provider: 11/22/17 19:17 History Source: Patient Exam Limitations: No Limitations - History of Present Illness Initial Comments: 11/22/17 21:11 Patient is a 52F with history of schizophrenia, anxiety, HTN, L leg DVT (on eliquis), DM here today complaining of right rib pain after a fall. She states that she was smoking by the fountain when she fell against the fountain on her right side. She states that she does not know how she fell. Denies chest pain, shortness of breath, abdominal pain, headache, and neck pain. Denies any prodromal or post-ictal period of confusion. Her main complaint at this time is for pain in her right ribs. She was recently seen in the hospital for a possible stroke, but the inpatient team believes that she had a conversion disorder. Past History - Past Medical History Allergies/Adverse Reactions: Allergies Allergy/AdvReac Type Severity Reaction Status Date / Time hydromorphone HCl Allergy Intermediate Itching Verified 11/22/17 18:08 [From Dilaudid] amoxicillin [Amoxicillin] Allergy Verified 11/22/17 18:08 ampicillin Allergy Verified 11/22/17 18:08 aspirin Allergy Difficulty Verified 11/22/17 18:08 Breathing cranberry Allergy Rash Verified 11/22/17 18:08 doxycycline Allergy Rash Verified 11/22/17 18:08 Fish Containing Products Allergy Difficulty Verified 11/22/17 18:08 Breathing haloperidol [From Haldol] Allergy Rash Verified 11/22/17 18:08 haloperidol lactate Allergy Rash Verified 11/22/17 18:08 [From Haldol] ibuprofen [From Motrin] Allergy Difficulty Verified 11/22/17 18:08 Breathing ketorolac tromethamine Allergy Rash Verified 11/22/17 18:08 [From Toradol] levofloxacin [From Levaquin] Allergy Rash Verified 11/22/17 18:08 milk Allergy Difficulty Verified 11/22/17 18:08 Breathing oxycodone HCl [From Percocet] Allergy Rash Verified 11/22/17 18:08 Penicillins Allergy Difficulty Verified 11/22/17 18:08 Breathing sulfamethoxazole Allergy Rash Verified 11/22/17 18:08 [From Bactrim] trimethoprim [From Bactrim] Allergy Verified 11/22/17 18:08 warfarin sodium Allergy Verified 11/22/17 18:08 [From Coumadin] Gravy Allergy Unknown Uncoded 11/22/17 18:08 Cranberry/Cranberry juice Allergy Uncoded 11/22/17 18:08 raw tomato Allergy Uncoded 11/22/17 18:08 Home Medications: Ambulatory Orders Albuterol Sulfate Inhaler - [Ventolin HFA Inhaler -] 1 inh PO Q4H PRN 06/15/17 Clonazepam 1 mg PO Q12H 06/15/17 Divalproex [Depakote -] 250 mg PO HS 06/15/17 Ferrous Sulfate 325 mg PO DAILY 06/15/17 Fluoxetine HCl 40 mg PO DAILY 06/15/17 Gabapentin 600 mg PO TID 06/15/17 Levothyroxine [Synthroid -] 50 mcg PO DAILY 06/15/17 Nitroglycerin Sublingual [Nitrostat -] 0.6 mg SL PRN PRN 06/15/17 Polyethylene Glycol 3350 [Clearlax] 17 gm PO DAILY 06/15/17 Quetiapine Fumarate [Seroquel] 200 mg PO HS 06/15/17 Sennosides/Docusate Sodium [Senna Laxative Tablet] 2 each PO HS 06/15/17 Apixaban [Eliquis -] 5 mg PO BID tablet 06/23/17 Budesonide/Formeterol Fumarate [SYMBICORT 80/4.5mcg -] 1 inh PO DAILY 06/23/17 Bupropion HCl [Wellbutrin Xl -] 300 mg PO DAILY tab.sr.24h 06/23/17 Docusate Sodium [Colace] 300 mg PO HS 06/23/17 Furosemide [Lasix -] 40 mg PO DAILY tablet 06/23/17 Metoprolol Succinate [Toprol Xl] 25 mg PO BID 06/23/17 Morphine Sulfate [Morphine Sulfate ER] 30 mg PO Q6H PRN 06/23/17 Pantoprazole Sodium [Protonix -] 40 mg PO DAILY tablet.ec 06/23/17 Simvastatin [Zocor -] 40 mg PO HS 09/12/17 metFORMIN HCL [Metformin HCl] 500 mg PO BID 09/12/17 Benztropine Mesylate [Cogentin -] 0.5 mg PO BID 09/23/17 Divalproex *ER* [Depakote *ER* -] 500 mg PO BID 09/23/17 clonazePAM [Klonopin -] 0.5 mg PO HS tablet MDD 0.5 11/21/17 Anemia: Yes Asthma: Yes Cancer: No Cardiac Disorders: Yes (chest pain, CAD, [place] x3) CVA: Yes (CVA x3, TIA, left sided residual) COPD: No CHF: No DVT: No Dementia: No Diabetes: Yes GI Disorders: Yes (PEPTIC ULCER) Disorders: No HTN: Yes Hypercholesterolemia: Yes Liver Disease: No Psychiatric Problems: Yes (BIPOLAR, POST TRAMATIC STRESS) Seizures: No Thyroid Disease: No - Surgical History Abdominal Surgery: Yes Appendectomy: No Cardiac Surgery: No Cholecystectomy: No Lung Surgery: No Neurologic Surgery: No Orthopedic Surgery: Yes - Immunization History Immunization Up to Date: No - Suicide/Smoking/Psychosocial Hx Smoking Status: Yes Smoking History: Current some day smoker Have you smoked in the past 12 months: Yes Number of Cigarettes Smoked Daily: 2 If you are a former smoker, when did you quit?: 09/18/2014 Cigars Per Day: 20 Information on smoking cessation initiated: No 'Breaking Loose' booklet given: 10/30/14 Hx Alcohol Use: No Drug/Substance Use Hx: No Substance Use Type: None Hx Substance Use Treatment: Yes Review of Systems - Review of Systems Comments:: 11/22/17 22:05 GENERAL/CONSTITUTIONAL: No fever or chills. No weakness. HEAD, EYES, EARS, NOSE AND THROAT: No change in vision. No sore throat. CARDIOVASCULAR: No chest pain or shortness of breath RESPIRATORY: No cough, wheezing, or hemoptysis. GASTROINTESTINAL: No nausea, vomiting, diarrhea or constipation. GENITOURINARY: No dysuria, frequency, or change in urination. MUSCULOSKELETAL: No joint or muscle swelling or pain. No neck or back pain. + for right rib pain SKIN: No rash NEUROLOGIC: No headache, vertigo, loss of consciousness, or change in strength/ sensation. ENDOCRINE: No increased thirst. No abnormal weight change HEMATOLOGIC/LYMPHATIC: No anemia, easy bleeding, or history of blood clots. ALLERGIC/IMMUNOLOGIC: No hives or skin allergy. *Physical Exam - Vital Signs Last Vital Signs Temp Pulse Resp BP Pulse Ox 98.9 F 67 20 110/44 99 11/22/17 18:09 11/22/17 18:09 11/22/17 18:09 11/22/17 18:09 11/22/17 18:09 - Physical Exam Comments: 11/22/17 22:06 GENERAL: Awake, alert, and fully oriented, in no acute distress HEAD: No signs of trauma, normocephalic, atraumatic EYES: PERRLA, EOMI, sclera anicteric, conjunctiva clear ENT: Auricles normal inspection, hearing grossly normal, nares patent, oropharynx clear without exudates. Moist mucosa NECK: Normal ROM, supple, no lymphadenopathy, JVD, or masses R RIBS: No signs of trauma, tender to palpation along lower ribs LUNGS: No distress, speaks full sentences, clear to auscultation bilaterally HEART: Regular rate and rhythm, normal S1 and S2, no murmurs, rubs or gallops, peripheral pulses normal and equal bilaterally. ABDOMEN: Soft, nontender, normoactive bowel sounds. No guarding, no rebound. No masses EXTREMITIES: Normal inspection, Normal range of motion, no edema. No clubbing or cyanosis. NEUROLOGICAL: Cranial nerves II through XII grossly intact. Normal speech, no focal sensorimotor deficits SKIN: Warm, Dry, normal turgor, no rashes or lesions noted. ED Treatment Course - LABORATORY CBC & Chemistry Diagram: 11/22/17 20:00 11/22/17 21:35 - ADDITIONAL ORDERS Additional order review: Laboratory Results 11/22/17 11/22/17 20:00 20:00 PT with INR 11.90 INR 1.05 Sodium Cancelled Potassium Cancelled Chloride Cancelled Carbon Dioxide Cancelled Anion Gap Cancelled BUN Cancelled Creatinine Cancelled Creat Clearance w eGFR Cancelled Random Glucose Cancelled Calcium Cancelled Magnesium Cancelled Total Bilirubin Cancelled AST Cancelled ALT Cancelled Alkaline Phosphatase Cancelled Creatine Kinase Cancelled Troponin I Cancelled Total Protein Cancelled Albumin Cancelled 11/22/17 20:00 RBC 4.32 MCV 82.4 MCHC 34.0 RDW 17.3 H MPV 9.7 Neutrophils % 57.1 Lymphocytes % 33.3 D Monocytes % 7.8 Eosinophils % 1.2 Basophils % 0.6 - RADIOLOGY Radiology Studies Ordered: Category Date Time Status CHEST X-RAY PORTABLE* [RAD] Stat Radiology 11/22/17 19:40 Ordered RIBS RIGHT SIDE [RAD] Stat Radiology 11/22/17 19:40 Ordered - Medications Given in the ED: ED Medications Discontinued Medications Generic Name Dose Route Start Last Admin Trade Name Winston PRN Reason Stop Dose Admin Acetaminophen 650 mg 11/22/17 19:40 11/22/17 20:28 Tylenol - PO 11/22/17 19:41 650 mg ONCE ONE Administration Sodium Chloride 1,000 mls @ 1,000 mls/hr 11/22/17 19:56 11/22/17 20:29 Normal Saline - IV 11/22/17 20:55 1,000 mls/hr ASDIR STA Administration Morphine Sulfate 15 mg 11/22/17 19:57 11/22/17 20:29 Msir - PO 11/22/17 19:58 15 mg ONCE ONE Administration Medical Decision Making - Medical Decision Making 11/22/17 22:06 Patient is a 52F with history of schizophrenia, HTN, anxiety, L leg DVT (on eliquis), DM here today with right rib pain and possible syncope. Vital signs normal and stable. Patient has multiple visits for similar issues with multiple negative cardiac workups. Will evaluate with CBC, CMP, EKG, trop, mg, phos, CXR , rib x-rays. 11/22/17 23:26 EKG shows sinus bradycardia with rate of 57bpm. No st elevations/depression. No significant t-wave inversions. Normal axis. Normal intervals. 11/22/17 23:32 Laboratory Tests 11/22/17 11/22/17 20:00 21:35 WBC 8.0 Hgb 12.1 Plt Count 207 D Creatinine 1.1 H Troponin I < 0.02 CBC reassuring. CMP reassuring. Troponin undetectable. Second troponin ordered. 11/23/17 03:10 Second troponin negative. Discharged with return precautions and PCP follow up. *DC/Admit/Observation/Transfer Diagnosis at time of Disposition: Fall - Discharge Dispostion Disposition: HOME Condition at time of disposition: Good Decision to Admit order: No - Referrals - Patient Instructions Additional Instructions: You were seen in the ED today for a fall. Please return if you have any new, worsening or concerning symptoms. Please follow up with your primary care physician in the next week. - Post Discharge Activity
[2017-11-22 22:14] LABS: ALBUMIN 2.9 g/dl (3.4-5.0); ANION GAP 6 (8-16); BILIRUBIN,TOTAL 0.2 mg/dL (0.2-1.0); BLOOD UREA NITROGEN 12 mg/dL (7-18); CALCIUM 7.7 mg/dL (8.5-10.1); CHLORIDE 114 mmol/L (98-107); CO2 27 mmol/L (21-32); CREATININE 1.1 mg/dL (0.55-1.02); GLUCOSE,RANDOM 89 mg/dL (74-106); LIPASE 87 U/L (73-393); MAGNESIUM 1.7 mg/dL (1.8-2.4); PHOSPHOROUS 3.8 mg/dL (2.5-4.9); POTASSIUM 3.8 mmol/L (3.5-5.1); SGOT/AST 13 U/L (15-37); SGPT/ALT 18 U/L (12-78); SODIUM 147 mmol/L (136-145); TOT PROT 6.4 g/dl (6.4-8.2)
[2017-11-22 22:15] LABS: ALK PHOS 93 U/L (45-117)
--- NOTE | 2017-11-25 21:57 | EKG ---
Test Reason : Blood Pressure : / mmHG Vent. Rate : 057 BPM Atrial Rate : 057 BPM P-R Int : 164 ms QRS Dur : 088 ms QT Int : 462 ms P-R-T Axes : 035 033 013 degrees QTc Int : 449 ms SINUS BRADYCARDIA NONSPECIFIC T WAVE ABNORMALITY ABNORMAL ECG WHEN COMPARED WITH ECG OF 19-NOV-2017 22:45, NO SIGNIFICANT CHANGE WAS FOUND Confirmed by NELI MARIN MD ([id number]) on 11/25/2017 9:57:01 PM Referred By: Confirmed By:NELI MAIRN MD
== END 2017-11-23 04:50 | disposition home or self-care (01) ==
LOC: JER 17:42
PROC: 3E033GC Introduction of Other Therapeutic Substance into Peripheral Vein, Percutaneous Approach (ICD-10-PCS; principal; 2017-11-22)
DX: S29.8XXA Other specified injuries of thorax, initial encounter (principal); W01.198A Fall on same level from slipping, tripping and stumbling with subsequent striking against other object, initial encounter; Y93.89 Activity, other specified; Y92.89 Other specified places as the place of occurrence of the external cause; Y99.8 Other external cause status; F20.9 Schizophrenia, unspecified; F31.9 Bipolar disorder, unspecified; F41.9 Anxiety disorder, unspecified; F41.0 Panic disorder [episodic paroxysmal anxiety]; E11.9 Type 2 diabetes mellitus without complications; Z79.4 Long term (current) use of insulin; Z79.84 Long term (current) use of oral hypoglycemic drugs; D64.9 Anemia, unspecified; J45.909 Unspecified asthma, uncomplicated; K27.9 Peptic ulcer, site unspecified, unspecified as acute or chronic, without hemorrhage or perforation; E78.00 Pure hypercholesterolemia, unspecified; I69.854 Hemiplegia and hemiparesis following other cerebrovascular disease affecting left non-dominant side; F17.210 Nicotine dependence, cigarettes, uncomplicated
CPT/HCPCS: 36415; 71045-TC-FY; 71101-TC-RT-FY; 80053; 82550; 82553; 83690; 83735; 84100; 84484; 85025; 85610; 93005; 93010; 96361; 96374; 99283-25; J7030

== ENCOUNTER 2017-11-26 07:43 | Emergency (ER) | payer OTHER ==
[2017-11-26] MEDS ORDERED: METHOCARBAMOL 500 MG TABLET PO ONE (07:56)
[2017-11-26] MEDS ORDERED: ACETAMINOPHEN 325 MG TABLET (FP) PO ONE (07:56)
--- NOTE | 2017-11-26 07:58 | PDOC ---
Attending Attestation - HPI HPI: 11/26/17 08:26 The patient is a 52-year-old female, with a significant past medical history of asthma, HTN, hyperlipidemia, CAD, LA, diabetes, bipolar disorder, schizophrenia , substance abuse, recent admission for headache and arm weakness diagnosed as possible conversion disorder, s/p fall 4 days ago (11/22/17), who presents to the ED with thoracic back pain. The patient denies any fever, chills, nausea, vomiting, diarrhea, or abdominal pain. Denies any chest pain or shortness of breath. Denies any headache or weakness. Allergies: hydromorphone HCl, amoxicillin, ampicillin, aspirin, cranberry. Surgical History: abdominal surgery, orthopedic surgery. Social History: Current everyday smoker. PCP: Dr. Nav Hsu - Physicial Exam PE: 11/26/17 08:45 GENERAL: The patient is in no acute distress. HEAD: Normal with no signs of trauma. EYES: PERRLA, EOMI, sclera anicteric, conjunctiva clear. ENT: Ears normal, nares patent, oropharynx clear without exudates. Moist mucous membranes. NECK: Normal range of motion, supple without lymphadenopathy, JVD, or masses. LUNGS: Breath sounds equal, clear to auscultation bilaterally. No wheezes, and no crackles. HEART:Regular rate and rhythm, normal S1 and S2 without murmur, rub or gallop. ABDOMEN: Soft, nontender, normoactive bowel sounds. No guarding, no rebound. No masses palpable. EXTREMITIES: Normal range of motion, no edema. No clubbing or cyanosis. No erythema, or tenderness. NEUROLOGICAL: Cranial nerves II through XII grossly intact. Normal speech. No focal neurological deficits. MUSCULOSKELETAL: Back non-tender to palpation, no CVA tenderness SKIN: Warm, Dry, normal turgor, no rashes or lesions noted. <Christy Lamar - Last Filed: 11/26/17 08:45> - Resident Resident Name: Nic Mejia - ED Attending Attestation I have performed the following: I have examined & evaluated the patient, The case was reviewed & discussed with the resident, I agree w/resident's findings & plan, Exceptions are as noted - Physicial Exam PE: 11/26/17 07:58 - Medical Decision Making 11/27/17 08:12 Ms Villela returns to the ER for complaints of back pain since falling several days ago No new neurological deficit Prior imaging revealed no fractures Will give pain medications Will discharge to home Return to the ER for any other concerns or complaints <Yani Gunderson - Last Filed: 11/27/17 08:13> Attestations - Attestations 11/26/17 08:47 Documentation prepared by Christy Lamar, acting as medical malpractice paralegal for Yani Gunderson MD. <Christy Lamar - Last Filed: 11/26/17 08:45>
--- NOTE | 2017-11-26 08:07 | PDOC ---
History of Present Illness - General History Source: Patient Exam Limitations: No Limitations - History of Present Illness Initial Comments: 11/26/17 08:01 Patient is a 52F with history of conversion disorder, anxiety, schizophrenia, DVT (on eliquis), DM and conversion disorder here today complaining of right sided back/flank pain. She says that the pain started 4 days ago after she fell against a water fountain. She presented to the ED after that fall where she was evaluated by myself and Dr Galvez. Cardiac workup, chest x-ray, and rib series were performed and all were normal. Patient states that she is presenting today because her pain has not improved. Patient takes 30mg morphine q6 at home. Denies fevers, chills, nausea, vomiting. Denies chest pain, shortness of breath , leg swelling. Denies further episode of weakness or syncope. <Nic Mejia - Last Filed: 11/26/17 08:13> <Christy Lamar - Last Filed: 11/26/17 08:36> - General Chief Complaint: Back Pain Stated Complaint: BACK PAIN Time Seen by Provider: 11/26/17 07:47 Past History - Past Medical History Anemia: Yes Asthma: Yes Cancer: No Cardiac Disorders: Yes (chest pain, CAD, [place] x3) CVA: Yes (CVA x3, TIA, left sided residual) COPD: No CHF: No DVT: No Dementia: No Diabetes: Yes GI Disorders: Yes (PEPTIC ULCER) Disorders: No HTN: Yes Hypercholesterolemia: Yes Liver Disease: No Psychiatric Problems: Yes (BIPOLAR, POST TRAMATIC STRESS) Seizures: No Thyroid Disease: No - Surgical History Abdominal Surgery: Yes Appendectomy: No Cardiac Surgery: No Cholecystectomy: No Lung Surgery: No Neurologic Surgery: No Orthopedic Surgery: Yes - Immunization History Immunization Up to Date: No - Suicide/Smoking/Psychosocial Hx Smoking Status: Yes Smoking History: Current some day smoker Have you smoked in the past 12 months: Yes Number of Cigarettes Smoked Daily: 2 If you are a former smoker, when did you quit?: 09/18/2014 Cigars Per Day: 20 'Breaking Loose' booklet given: 10/30/14 Hx Alcohol Use: No Drug/Substance Use Hx: No Substance Use Type: None Hx Substance Use Treatment: Yes <Nic Mejia - Last Filed: 11/26/17 08:13> <Christy Lamar - Last Filed: 11/26/17 08:36> - Past Medical History Allergies/Adverse Reactions: Allergies Allergy/AdvReac Type Severity Reaction Status Date / Time hydromorphone HCl Allergy Intermediate Itching Verified 11/26/17 08:15 [From Dilaudid] amoxicillin [Amoxicillin] Allergy Verified 11/26/17 08:15 ampicillin Allergy Verified 11/26/17 08:15 aspirin Allergy Difficulty Verified 11/26/17 08:15 Breathing cranberry Allergy Rash Verified 11/26/17 08:15 doxycycline Allergy Rash Verified 11/26/17 08:15 Fish Containing Products Allergy Difficulty Verified 11/26/17 08:15 Breathing haloperidol [From Haldol] Allergy Rash Verified 11/26/17 08:15 haloperidol lactate Allergy Rash Verified 11/26/17 08:15 [From Haldol] ibuprofen [From Motrin] Allergy Difficulty Verified 11/26/17 08:15 Breathing ketorolac tromethamine Allergy Rash Verified 11/26/17 08:15 [From Toradol] levofloxacin [From Levaquin] Allergy Rash Verified 11/26/17 08:15 milk Allergy Difficulty Verified 11/26/17 08:15 Breathing oxycodone HCl [From Percocet] Allergy Rash Verified 11/26/17 08:15 Penicillins Allergy Difficulty Verified 11/26/17 08:15 Breathing sulfamethoxazole Allergy Rash Verified 11/26/17 08:15 [From Bactrim] trimethoprim [From Bactrim] Allergy Verified 11/26/17 08:15 warfarin sodium Allergy Verified 11/26/17 08:15 [From Coumadin] Gravy Allergy Unknown Uncoded 11/26/17 08:15 Cranberry/Cranberry juice Allergy Uncoded 11/26/17 08:15 raw tomato Allergy Uncoded 11/26/17 08:15 Home Medications: Ambulatory Orders Albuterol Sulfate Inhaler - [Ventolin HFA Inhaler -] 1 inh PO Q4H PRN 06/15/17 Clonazepam 1 mg PO Q12H 06/15/17 Divalproex [Depakote -] 250 mg PO HS 06/15/17 Ferrous Sulfate 325 mg PO DAILY 06/15/17 Fluoxetine HCl 40 mg PO DAILY 06/15/17 Gabapentin 600 mg PO TID 06/15/17 Levothyroxine [Synthroid -] 50 mcg PO DAILY 06/15/17 Nitroglycerin Sublingual [Nitrostat -] 0.6 mg SL PRN PRN 06/15/17 Polyethylene Glycol 3350 [Clearlax] 17 gm PO DAILY 06/15/17 Quetiapine Fumarate [Seroquel] 200 mg PO HS 06/15/17 Sennosides/Docusate Sodium [Senna Laxative Tablet] 2 each PO HS 06/15/17 Apixaban [Eliquis -] 5 mg PO BID tablet 06/23/17 Budesonide/Formeterol Fumarate [SYMBICORT 80/4.5mcg -] 1 inh PO DAILY 06/23/17 Bupropion HCl [Wellbutrin Xl -] 300 mg PO DAILY tab.sr.24h 06/23/17 Docusate Sodium [Colace] 300 mg PO HS 06/23/17 Furosemide [Lasix -] 40 mg PO DAILY tablet 06/23/17 Metoprolol Succinate [Toprol Xl] 25 mg PO BID 06/23/17 Morphine Sulfate [Morphine Sulfate ER] 30 mg PO Q6H PRN 06/23/17 Pantoprazole Sodium [Protonix -] 40 mg PO DAILY tablet.ec 06/23/17 Simvastatin [Zocor -] 40 mg PO HS 09/12/17 metFORMIN HCL [Metformin HCl] 500 mg PO BID 09/12/17 Benztropine Mesylate [Cogentin -] 0.5 mg PO BID 09/23/17 Divalproex *ER* [Depakote *ER* -] 500 mg PO BID 09/23/17 clonazePAM [Klonopin -] 0.5 mg PO HS tablet MDD 0.5 11/21/17 Review of Systems - Review of Systems Comments:: 11/26/17 08:07 GENERAL/CONSTITUTIONAL: No fever or chills. No weakness. HEAD, EYES, EARS, NOSE AND THROAT: No change in vision. No sore throat. CARDIOVASCULAR: No chest pain or shortness of breath RESPIRATORY: No cough, wheezing, or hemoptysis. GASTROINTESTINAL: No nausea, vomiting, diarrhea or constipation. GENITOURINARY: No dysuria, frequency, or change in urination. MUSCULOSKELETAL: No joint or muscle swelling or pain. +back pain SKIN: No rash NEUROLOGIC: No headache, vertigo, loss of consciousness, or change in strength/ sensation. ENDOCRINE: No increased thirst. No abnormal weight change HEMATOLOGIC/LYMPHATIC: No anemia, easy bleeding, or history of blood clots. ALLERGIC/IMMUNOLOGIC: No hives or skin allergy. <Nic Mejia - Last Filed: 11/26/17 08:13> *Physical Exam - Physical Exam Comments: 11/26/17 08:07 GENERAL: Awake, alert, and fully oriented, in no acute distress HEAD: No signs of trauma, normocephalic, atraumatic EYES: PERRLA, EOMI, sclera anicteric, conjunctiva clear ENT: Auricles normal inspection, hearing grossly normal, nares patent, oropharynx clear without exudates. Moist mucosa NECK: Normal ROM, supple, no lymphadenopathy, JVD, or masses, no midline tenderness BACK: No midline tenderness, distractable tenderness over right side of back, no bruising along ribs LUNGS: No distress, speaks full sentences, clear to auscultation bilaterally HEART: Regular rate and rhythm, normal S1 and S2, no murmurs, rubs or gallops, peripheral pulses normal and equal bilaterally. ABDOMEN: Soft, nontender, normoactive bowel sounds. No guarding, no rebound. No masses EXTREMITIES: Normal inspection, Normal range of motion, no edema. No clubbing or cyanosis. NEUROLOGICAL: Cranial nerves II through XII grossly intact. Normal speech, normal gait with cane, no focal sensorimotor deficits SKIN: Warm, Dry, normal turgor, no rashes or lesions noted. <Nic Mejia - Last Filed: 11/26/17 08:13> - Vital Signs Last Vital Signs Temp Pulse Resp BP Pulse Ox 98.0 F 78 16 131/78 98 11/26/17 07:43 11/26/17 07:43 11/26/17 07:43 11/26/17 07:43 11/26/17 07:43 <Christy Lamar - Last Filed: 11/26/17 08:36> ED Treatment Course - Medications Given in the ED: ED Medications Discontinued Medications Generic Name Dose Route Start Last Admin Trade Name Freq PRN Reason Stop Dose Admin Acetaminophen 650 mg 11/26/17 07:56 11/26/17 08:15 Tylenol - PO 11/26/17 07:57 650 mg ONCE ONE Administration Methocarbamol 500 mg 11/26/17 07:56 11/26/17 08:15 Robaxin - PO 11/26/17 07:57 500 mg ONCE ONE Administration <Christy Lamar - Last Filed: 11/26/17 08:36> Medical Decision Making - Medical Decision Making 11/26/17 08:09 Patient is 52F with history of schizophrenia, anxiety, DVT, DM, conversion disorder here today with back/flank pain. Vital signs stable and normal. No red flags for back pain. Patient on morphine at home. Will treat with robaxin and tylenol. Will discharge. <Nic Mejia - Last Filed: 11/26/17 08:13> *DC/Admit/Observation/Transfer - Discharge Dispostion Decision to Admit order: No <Nic Mejia - Last Filed: 11/26/17 08:13> <Christy Lamar - Last Filed: 11/26/17 08:36> Diagnosis at time of Disposition: Back pain - Discharge Dispostion Disposition: HOME Condition at time of disposition: Good - Referrals Referrals: Nav Hsu [Primary Care Provider] - - Patient Instructions Printed Discharge Instructions: DI for Low Back Pain Additional Instructions: Please return if you have any new, worsening or concerning symptoms. Please follow up with your primary care physician in the next week. - Post Discharge Activity
[2017-11-26] MEDS ORDERED: METHOCARBAMOL 500 MG TABLET ONE (08:11)
[2017-11-26] MEDS ORDERED: ACETAMINOPHEN 325 MG TABLET (FP) ONE (08:11)
[2017-11-26 08:31] VITALS: BP 131/78; TEMP 98; BMI 34.9
[2017-11-26 10:15] VITALS: PULSE 77
== END 2017-11-26 10:15 | disposition home or self-care (01) ==
LOC: JER 07:43
DX: S29.8XXD Other specified injuries of thorax, subsequent encounter (principal); W01.198D Fall on same level from slipping, tripping and stumbling with subsequent striking against other object, subsequent encounter; Y92.098 Other place in other non-institutional residence as the place of occurrence of the external cause; I25.2 Old myocardial infarction; I25.10 Atherosclerotic heart disease of native coronary artery without angina pectoris; I10 Essential (primary) hypertension; E11.9 Type 2 diabetes mellitus without complications; Z79.4 Long term (current) use of insulin; Z79.84 Long term (current) use of oral hypoglycemic drugs; F31.9 Bipolar disorder, unspecified; F20.9 Schizophrenia, unspecified; I69.854 Hemiplegia and hemiparesis following other cerebrovascular disease affecting left non-dominant side; Z86.718 Personal history of other venous thrombosis and embolism; Z79.01 Long term (current) use of anticoagulants; Z88.8 Allergy status to other drugs, medicaments and biological substances; Z91.018 Allergy to other foods; F17.210 Nicotine dependence, cigarettes, uncomplicated
CPT/HCPCS: 99282-25

== ENCOUNTER 2019-08-07 18:03 | Inpatient (IN) | payer OTHER ==
--- NOTE | 2019-08-07 18:30 | PDOC ---
Rapid Medical Evaluation Chief Complaint: Lightheaded Time Seen by Provider: 08/07/19 18:28 Medical Evaluation: Allergies Allergy/AdvReac Type Severity Reaction Status Date / Time hydromorphone HCl Allergy Intermediate Itching Verified 08/07/19 18:27 [From Dilaudid] amoxicillin [Amoxicillin] Allergy Verified 08/07/19 18:27 ampicillin Allergy Verified 08/07/19 18:27 aspirin Allergy Difficulty Verified 08/07/19 18:27 Breathing cranberry Allergy Rash Verified 08/07/19 18:27 doxycycline Allergy Rash Verified 08/07/19 18:27 Fish Containing Products Allergy Difficulty Verified 08/07/19 18:27 Breathing haloperidol [From Haldol] Allergy Rash Verified 08/07/19 18:27 haloperidol lactate Allergy Rash Verified 08/07/19 18:27 [From Haldol] ibuprofen [From Motrin] Allergy Difficulty Verified 08/07/19 18:27 Breathing ketorolac tromethamine Allergy Rash Verified 08/07/19 18:27 [From Toradol] levofloxacin [From Levaquin] Allergy Rash Verified 08/07/19 18:27 milk Allergy Difficulty Verified 08/07/19 18:27 Breathing oxycodone HCl [From Percocet] Allergy Rash Verified 08/07/19 18:27 Penicillins Allergy Difficulty Verified 08/07/19 18:27 Breathing sulfamethoxazole Allergy Rash Verified 08/07/19 18:27 [From Bactrim] trimethoprim [From Bactrim] Allergy Verified 08/07/19 18:27 warfarin sodium Allergy Verified 08/07/19 18:27 [From Coumadin] Gravy Allergy Unknown Uncoded 08/07/19 18:27 Cranberry/Cranberry juice Allergy Uncoded 08/07/19 18:27 raw tomato Allergy Uncoded 08/07/19 18:27 08/07/19 18:29 Pt c/o: lightheadedness, nv/abd pain x 2 days,today got diizy and fell landing on back, + LOC Pt on brief exam: vss, alert and oriented Pt ordered for: labs, ekg,urine Pt to proceed to the ED Discharge Disposition - Diagnosis Syncope and collapse - Referrals - Patient Instructions - Post Discharge Activity
--- NOTE | 2019-08-07 18:56 | PDOC ---
History of Present Illness - General Chief Complaint: Lightheaded Stated Complaint: GENERALIZED WEAKNESS/ DIZZINESS Time Seen by Provider: 08/07/19 18:28 Past History - Past Medical History Allergies/Adverse Reactions: Allergies Allergy/AdvReac Type Severity Reaction Status Date / Time hydromorphone HCl Allergy Intermediate Itching Verified 08/07/19 18:27 [From Dilaudid] amoxicillin [Amoxicillin] Allergy Verified 08/07/19 18:27 ampicillin Allergy Verified 08/07/19 18:27 aspirin Allergy Difficulty Verified 08/07/19 18:27 Breathing cranberry Allergy Rash Verified 08/07/19 18:27 doxycycline Allergy Rash Verified 08/07/19 18:27 Fish Containing Products Allergy Difficulty Verified 08/07/19 18:27 Breathing haloperidol [From Haldol] Allergy Rash Verified 08/07/19 18:27 haloperidol lactate Allergy Rash Verified 08/07/19 18:27 [From Haldol] ibuprofen [From Motrin] Allergy Difficulty Verified 08/07/19 18:27 Breathing ketorolac tromethamine Allergy Rash Verified 08/07/19 18:27 [From Toradol] levofloxacin [From Levaquin] Allergy Rash Verified 08/07/19 18:27 milk Allergy Difficulty Verified 08/07/19 18:27 Breathing oxycodone HCl [From Percocet] Allergy Rash Verified 08/07/19 18:27 Penicillins Allergy Difficulty Verified 08/07/19 18:27 Breathing sulfamethoxazole Allergy Rash Verified 08/07/19 18:27 [From Bactrim] trimethoprim [From Bactrim] Allergy Verified 08/07/19 18:27 warfarin sodium Allergy Verified 08/07/19 18:27 [From Coumadin] Gravy Allergy Unknown Uncoded 08/07/19 18:27 Cranberry/Cranberry juice Allergy Uncoded 08/07/19 18:27 raw tomato Allergy Uncoded 08/07/19 18:27 Home Medications: Ambulatory Orders Albuterol Sulfate Inhaler - [Ventolin HFA Inhaler -] 1 inh PO Q4H PRN 06/15/17 Clonazepam 1 mg PO Q12H 06/15/17 Divalproex [Depakote -] 250 mg PO HS 06/15/17 Ferrous Sulfate 325 mg PO DAILY 06/15/17 Fluoxetine HCl 40 mg PO DAILY 06/15/17 Gabapentin 600 mg PO TID 06/15/17 Levothyroxine [Synthroid -] 50 mcg PO DAILY 06/15/17 Nitroglycerin Sublingual [Nitrostat -] 0.6 mg SL PRN PRN 06/15/17 Polyethylene Glycol 3350 [Clearlax] 17 gm PO DAILY 06/15/17 Quetiapine Fumarate [Seroquel] 200 mg PO HS 06/15/17 Sennosides/Docusate Sodium [Senna Laxative Tablet] 2 each PO HS 06/15/17 Apixaban [Eliquis -] 5 mg PO BID tablet 06/23/17 Budesonide/Formeterol Fumarate [SYMBICORT 80/4.5mcg -] 1 inh PO DAILY 06/23/17 Bupropion HCl [Wellbutrin Xl -] 300 mg PO DAILY tab.sr.24h 06/23/17 Docusate Sodium [Colace] 300 mg PO HS 06/23/17 Furosemide [Lasix -] 40 mg PO DAILY tablet 06/23/17 Metoprolol Succinate [Toprol Xl] 25 mg PO BID 06/23/17 Morphine Sulfate [Morphine Sulfate ER] 30 mg PO Q6H PRN 06/23/17 Pantoprazole Sodium [Protonix -] 40 mg PO DAILY tablet.ec 06/23/17 Simvastatin [Zocor -] 40 mg PO HS 09/12/17 metFORMIN HCL [Metformin HCl] 500 mg PO BID 09/12/17 Benztropine Mesylate [Cogentin -] 0.5 mg PO BID 09/23/17 Divalproex *ER* [Depakote *ER* -] 500 mg PO BID 09/23/17 clonazePAM [Klonopin -] 0.5 mg PO HS tablet MDD 0.5 11/21/17 Anemia: Yes Asthma: Yes Cancer: No Cardiac Disorders: Yes (chest pain, CAD, [place] x3) CVA: Yes (CVA x3, TIA, left sided residual) COPD: No CHF: No DVT: No Dementia: No Diabetes: Yes GI Disorders: Yes (PEPTIC ULCER) Disorders: No HTN: Yes Hypercholesterolemia: Yes Liver Disease: No Psychiatric Problems: Yes (BIPOLAR, POST TRAMATIC STRESS) Seizures: No Thyroid Disease: No - Surgical History Abdominal Surgery: Yes Appendectomy: No Cardiac Surgery: No Cholecystectomy: No Lung Surgery: No Neurologic Surgery: No Orthopedic Surgery: Yes - Immunization History Immunization Up to Date: No - Psycho Social/Smoking Cessation Hx Smoking Status: Yes Smoking History: Current every day smoker Have you smoked in the past 12 months: Yes Number of Cigarettes Smoked Daily: 10 If you are a former smoker, when did you quit?: 09/18/2014 Cigars Per Day: 20 Information on smoking cessation initiated: No 'Breaking Loose' booklet given: 10/30/14 Hx Alcohol Use: No Drug/Substance Use Hx: No Substance Use Type: None Hx Substance Use Treatment: Yes *Physical Exam - Vital Signs Last Vital Signs Temp Pulse Resp BP Pulse Ox 97.8 F 84 16 115/68 100 08/07/19 18:28 08/07/19 18:28 08/07/19 18:28 08/07/19 18:28 08/07/19 18:28 ED Treatment Course - LABORATORY CBC & Chemistry Diagram: 08/07/19 20:00 08/07/19 20:00 - RADIOLOGY Radiology Studies Ordered: Category Date Time Status HEAD CT WITHOUT CONTRAST [CT] Stat CT Scan 08/07/19 18:48 Ordered Medical Decision Making - Medical Decision Making 08/07/19 19:49 HPI: 53yo M hx morbid obesity, anxiety, schizophrenia, DVT (on eliquis and plavix), HTN, HLD, DM, ?conversion disorder vs CVA/TIA, ?CAD/AZ (x3), peptic ulcer, asthma, anemia, vertigo, ?COPD, incontinence, and migraines presents from [facility] Living with head and lower back pain s/p syncope at 1730 today, in setting of 2 days of diffuse abdominal pain, anorexia, decreased PO intake, nausea, and emesis x2. Abdominal pain gradual onset diffuse cramping constant worse with eating no hx similar sx no pain meds tried. LBM this AM. Denies fever, chills, diarrhea, constipation, blood in stool, vaginal bleeding, vaginal discharge, genital rash. LBM this AM. Only abdominal surgery partial hysterectomy. Endorses hematuria x2 days; denies dysuria, urgency, frequency; endorses chronic incontinence. Endorses chronic lower back pain and back surgery, worsened back pain s/p fall/syncope, denies saddle anesthesia or LE weakness or numbness. Endorses 2 days of tingling b/l fingers constant. Endorses intermittent nudging type L-sided chest pain x30min unlike anything before. This PM at 1730 pt was walking normally and had syncope, witnessed, with LOC, unknown down time, unknown head injury. Denies seizure-like movements or tongue biting (no teeth); endorses incontinence (baseline). Endorses frequent "syncope" last 8mo ago but states this is the first time lost consciousness. Denies prodromal symptoms including dizziness, vertigo, light-headedness, chest pain, SOB, or palpitations. Endorses intermittent vertigo (known dx x years). Ambulates with cane at baseline. Pt was able to stand with assistance after syncope then walk with cane. Pt "can't explain" head pain, unknown type, unknown sudden/gradual onset since fall, unknown locations. Denies new numbness or tingling or weakness since syncope. Endorses blurry vision since syncope. PCP - ?[facility] (can't remember exactly, not here) ROS: Constitutional: Negative for chills, fever, fatigue, diaphoresis. HENT: Negative for sore throat, rhinorrhea, congestion. Eyes: Positive for blurry vision. Negative for photophobia. Respiratory: Negative for shortness of breath, cough, and wheezing. Cardiovascular: Positive for chest pain. Negative for palpitations, and leg swelling. Gastrointestinal: Positive for abdominal pain, nausea, vomiting. Negative for blood in stool, constipation, diarrhea. Genitourinary: Positive for hematuria. Negative for dysuria, flank pain. Musculoskeletal: Positive for back pain. Negative for myalgias and neck pain. Skin: Negative for rash. Neurological: Positive for vertigo, syncope, tingling b/l hands, and head pain. Negative for light-headedness, weakness. Psychiatric/Behavioral: Negative for behavioral problems and confusion. PE: Gen: Alert, NAD, comfortable-appearing, morbidly obese HEENT: PERRL, EOMI, MMM, NCAT. No conjunctival pallor. Sclera are non-icteric. CV: Regular rate and rhythm. No murmurs, rubs, or gallops. PULM: No resp distress. CTAB, no wheezes, rales, or rhonchi. ABD: soft, protuberant, ND, diffuse TTP, no rebound tenderness or guarding, no CVA tenderness. BACK: +midline l-spine TTP. No TTP of c/t-spine. No step-offs or deformities. MSK: No bony deformities. 2+ pulses in all extremities. NEURO: AAOx3. PERRL. CN 2-12 intact. 5/5 strength in all extremities. Sensation to light touch intact in all extremities. No pronator drift. No abnormal nystagmus. Normal gait. EXTREMITIES: No cyanosis. No clubbing. No edema. No calf tenderness. PSYCH: Normal mood and thought pattern. SKIN: Warm and dry. Normal capillary refill. No rashes. No jaundice. MDM: 53yo M hx morbid obesity, anxiety, schizophrenia, DVT (on eliquis and plavix), HTN, HLD, DM, ?conversion disorder vs CVA/TIA, ?CAD/AZ (x3), peptic ulcer, asthma, anemia, vertigo, ?COPD, incontinence, and migraines presents from [facility] Living with head and lower back pain s/p syncope at 1730 today, in setting of 2 days of diffuse abdominal pain, anorexia, decreased PO intake, nausea, and emesis x2. Hemodynamically stable, afebrile, neurologically intact, diffuse TTP abdomen, midline L-spine TTP. Ddx for syncope vs seizure, ICH, stroke (no focal deficits), vasovagal, orthostatic hypotension, infection (UTI, PNA, GI pathology), metabolic derangement, anemia, ACS/AZ, arrhythmia, thyroid pathology. Due to fall and pain to lower back, r/o fx or dislocation with XR. Due to GI sx and diffuse abdomen TTP, consider GI pathology including diverticulitis, colitis, appendicitis, gastritis, gastroenteritis, SBO (low concern, LBM this AM). No vaginal sx or pelvic pain concerning for pelvic pathology at this time. Due to hematuria, also consider renal pathology including kidney stone and UTI/pyelo. -EKG -CXR -XR L-spine -CTH. No CT c-spine indicated by Nexus criteria. -CTAP w/IV contrast -CBC,CMP,Mg,Phos,Cardiac profile,Lipase,TSH,UA/UC -Pain management -Meclizine -Dispo: likely admit tele obs syncope 08/07/19 21:41 EKG reviewed: NSR, 77bpm, normal intervals, normal axis, no e/o acute ischemia CXR reviewed: no acute pathology Labs reviewed. Notable for WBC 11.2, new anemia, low Mg, trop neg, CK elevated. -Mg CBC,CMP WBC 11.2 K/mm3 (4.0-10.0) H 08/07/19 20:00 RBC 3.75 M/mm3 (3.60-5.2) 08/07/19 20:00 Hgb 10.0 GM/dL (10.7-15.3) L 08/07/19 20:00 Hct 29.6 % (32.4-45.2) L D 08/07/19 20:00 MCV 78.8 fl (80-96) L 08/07/19 20:00 MCH 26.8 pg (25.7-33.7) 08/07/19 20:00 MCHC 34.0 g/dl (32.0-36.0) 08/07/19 20:00 RDW 17.8 % (11.6-15.6) H 08/07/19 20:00 Plt Count 245 K/MM3 (134-434) 08/07/19 20:00 MPV 9.8 fl (7.5-11.1) 08/07/19 20:00 Absolute Neuts (auto) 7.7 K/mm3 (1.5-8.0) 08/07/19 20:00 Neutrophils % 68.5 % (42.8-82.8) 08/07/19 20:00 Lymphocytes % 23.7 % (8-40) D 08/07/19 20:00 Monocytes % 6.0 % (3.8-10.2) 08/07/19 20: Eosinophils % 1.2 % (0-4.5) 08/07/19 20:00 Basophils % 0.6 % (0-2.0) 08/07/19 20:00 Nucleated RBC % 0 % (0-0) 08/07/19 20:00 Sodium 144 mmol/L (136-145) 08/07/19 20:00 Potassium 4.0 mmol/L (3.5-5.1) 08/07/19 20:00 Chloride 108 mmol/L (98-107) H 08/07/19 20:00 Carbon Dioxide 29 mmol/L (21-32) 08/07/19 20:00 Anion Gap 8 MMOL/L (8-16) 08/07/19 20:00 BUN 19.5 mg/dL (7-18) H 08/07/19 20:00 Creatinine 0.9 mg/dL (0.55-1.3) 08/07/19 20:00 Est GFR (CKD-EPI)AfAm 85.20 08/07/19 20:00 Est GFR (CKD-EPI)NonAf 73.51 08/07/19 20:00 Random Glucose 90 mg/dL (74-106) 08/07/19 20:00 Calcium 8.6 mg/dL (8.5-10.1) 08/07/19 20:00 Phosphorus 3.9 mg/dL (2.5-4.9) 08/07/19 20:00 Magnesium 1.5 mg/dL (1.8-2.4) L 08/07/19 20:00 Total Bilirubin 0.2 mg/dL (0.2-1) 08/07/19 20:00 AST 14 U/L (15-37) L 08/07/19 20:00 ALT 17 U/L (13-61) 08/07/19 20:00 Alkaline Phosphatase 96 U/L (45-117) 08/07/19 20:00 Creatine Kinase 230 U/L (26-192) H 08/07/19 20:00 Troponin I < 0.02 ng/ml (0.00-0.05) 08/07/19 20:00 Total Protein 7.0 g/dl (6.4-8.2) 08/07/19 20:00 Albumin 3.2 g/dl (3.4-5.0) L 08/07/19 20:00 Lipase 213 U/L (73-393) 08/07/19 20:00 TSH 0.74 uIU/ml (0.358-3.74) 08/07/19 20:00 08/07/19 22:26 L-spine XR reviewed with Attending: no acute pathology 08/07/19 22:54 Due to pt's multiple allergies and last contrast study in 2013, CT requests benadryl prophylactically. -25 benadryl 08/07/19 23:24 CTH reviewed: no acute pathology CTAP reviewed with Attending: no acute pathology 08/08/19 00:12 Signed out to admitting team. Spoke with [facility] radiologist Dr Herron - possible pyelitis vs microscopic stone 08/08/19 00:31 CTAP reviewed: Notable for mild L hydronephrosis and hydroureter of partially duplicated collecting system/ureter. Also mild enhancement of fernando of l ureters. Cannot find definite source of obstruction; however, ureteral wall enhancement suggests possible pyelitis/UTI. Also mild thickening of fernando of urinary bladder. Nonspecific but can represent cystitis. Very tiny density in 1 of partially duplicated L ureters maybe 1mm, almost size of a pixel so not certain if stone or not. Discharge - Discharge Information Problems reviewed: Yes Clinical Impression/Diagnosis: Syncope and collapse, Headache, Anemia, Hypomagnesemia Condition: Stable - Admission Yes - Follow up/Referral - Patient Discharge Instructions - Post Discharge Activity
--- NOTE | 2019-08-07 19:04 | PDOC ---
Attending Attestation - Resident Resident Name: Marcia Benavides - ED Attending Attestation I have performed the following: I have examined & evaluated the patient, The case was reviewed & discussed with the resident, I agree w/resident's findings & plan - HPI HPI: 08/07/19 22:41 53 yo female with a pmh of bipolar disorder, schizophrenia, substance abuse, anemia, asthma, CAD, NC (3x), CVA, TIA, peptic ulcer, hypertension, hyperlipidemia, and diabetes, ?conversion d/o, presenting from [facility] presenting with syncopal episode today at 1730, +LOC and head trauma. +headache and lower back pain. +generalized abdominal pain x 2 days, a/w decreased appetite and PO intake, nausea and NBNB emesis. exacerbated with eating. denies food triggers, suspicious food intake, trauma. no Denies fever, chills, diarrhea, constipation, blood in stool. LBM this AM. Only abdominal surgery partial hysterectomy. Endorses hematuria x2 days; denies dysuria, urgency, frequency; endorses chronic incontinence. Endorses chronic lower back pain and back surgery, worsened back pain s/p fall/syncope, b/l finger ingling x 2 days. left sided chest pain, intermittently This PM at 1730 pt was walking normally and had syncope, witnessed, with LOC, unknown down time, unknown head injury. Denies seizure-like movements or tongue biting (no teeth); endorses incontinence (baseline). Endorses frequent "syncope" last 8mo ago but states this is the first time lost consciousness. Denies prodromal symptoms including dizziness, vertigo, light-headedness, chest pain, SOB, or palpitations. Endorses intermittent vertigo (known dx x years). Ambulates with cane at baseline. Pt was able to stand with assistance after syncope then walk with cane. Pt "can't explain" head pain, unknown type, unknown sudden/gradual onset since fall, unknown locations. Denies new numbness or tingling or weakness since syncope. Endorses blurry vision since syncope. 08/08/19 00:34 - Physicial Exam PE: 08/07/19 19:04 Agree with the resident's HPI and PE as documented in the electronic medical record. NAD, well appearing, EOMI, PERRL, nl conjunctiva, anicteric; neck supple. lungs clear, RRR, abdomen soft diffusely tender, obese. no rebound, guarding. Back nontender. MARKS x4, no focal neuro deficits. No peripheral edema. normal color for ethnicity, WWP. 08/07/19 22:44 08/08/19 00:31 - Medical Decision Making 08/07/19 19:04 Vital Signs Temp Pulse Resp BP Pulse Ox 97.8 F 84 16 115/68 100 08/07/19 18:28 08/07/19 18:28 08/07/19 18:28 08/07/19 18:28 08/07/19 18:28 vs reviewed wnl. DDx syncope: considered interval abnormalities including short QTC or long QT syndrome, WPW, conduction abnormality, Brugada, ACS, PE, electrolyte dis turbances, metabolic derangement. seizure, MAPPING SPECIALIST lesion, CVA, ICH. vasovagal episode. Neuro exam is nonfocal, not consistent with CVA or primary neurologic abnormality. \\ DDx abdominal pain: Renal colic, biliary colic, metabolic/electrolyte derangements. GERD, PUD, esophageal spasm, pancreatitis, hepatitis, constipation, colitis, gastroenteritis, cholecystitis, UTI, pyelonephritis, ileus, SBO, medication side effect, hernia, appendicitis, diverticulitis, mesenteric ischemia. msk strain, mesenteric adenitis, psoas abscess. labs and lytes with anemia, mild wbc c 11K. no e/o bleeding. mg repleted. trop neg, reassuring. LFTs normal, lipase normal analgesia given< IVF, pain control, reassess. 08/08/19 00:32 CT head unremarkable for injuries CT a/p: No bowel obstruction or inflammation, there is moderately large stool burden noted. No diverticulitis or colitis, normal appendix. There is nonobstructing fat-containing ventral hernia, no intraperitoneal free air or free fluid. There is mild left-sided hydronephrosis of a partially duplicated collecting system/ureter there is also mild enhancement of the fernando of the last ureter but no clear source of obstruction. possible pyelitis vs UTI, urinary bladder thickening also noted. will correlate with UA once patient provides. 08/08/19 00:33 pt has been admitted to medical team for continued management. pending UA to jossy for infection. syncope workup, tele obs 08/08/19 00:34 Heart Score/ECG Review #1 ECG reviewed & interpreted by me at: 18:40 General ECG Interpretation: Sinus Rhythm, Normal Rate, Normal Intervals Compared to previous ECG there are: No significant change 08/07/19 19:04 EKG normal sinus rhythm 77 bpm, no interval abnormalities, narrow QRS, ST and T wave segments and morphology normal. Nonspecific T wave abnormalities
[2019-08-07] MEDS ORDERED: MECLIZINE HCL 25 MG TABLET (FP) PO ONE (19:27)
[2019-08-07] MEDS ORDERED: ACETAMINOPHEN 1000 MG/100 ML VIAL (NON FORMULARY) IVPB ONE (19:28)
[2019-08-07] MEDS ORDERED: METOCLOPRAMIDE HCL INJECTION 10 MG/2 ML VIAL IVPB ONE (19:28)
[2019-08-07] MEDS ORDERED: METOCLOPRAMIDE HCL INJECTION 10 MG/2 ML VIAL ONE (19:39)
[2019-08-07] MEDS ORDERED: MECLIZINE HCL 25 MG TABLET (FP) ONE (19:39)
[2019-08-07] MEDS ORDERED: ACETAMINOPHEN INJECTION 100 ML IVPB ONE (19:40)
[2019-08-07 20:44] LABS: BASO % 0.6 % (0-2.0); EOS % 1.2 % (0-4.5); HEMATOCRIT 29.6 % (32.4-45.2); LYMPH % 23.7 % (8-40); MCH 26.8 pg (25.7-33.7); MEAN CELL VOLUME 78.8 fl (80-96); MEAN PLT VOLUME 9.8 fl (7.5-11.1); NEUT % 68.5 % (42.8-82.8); PLATELET COUNT 245 K/MM3 (134-434); RBC 3.75 M/mm3 (3.60-5.2); RDW 17.8 % (11.6-15.6); WHITE BLOOD COUNT 11.2 K/mm3 (4.0-10.0)
[2019-08-07] MEDS ORDERED: morphine CARPU-JECT 4 MG/1 ML DISP.SYRIN IVPUSH ONE (20:52)
[2019-08-07] MEDS ORDERED: SODIUM CHLORIDE 0.9% 500 ML INFUS.BAG IV ONE (20:53)
[2019-08-07 20:56] LABS: INR 1.04 (0.83-1.09); PROTHROMBIN TIME (PATIENT) 12.3 SEC (9.7-13.0)
[2019-08-07 20:59] LABS: ACTIVATED PTT 38.4 SECONDS (25.2-36.5)
[2019-08-07] MEDS ORDERED: morphine SULFATE 4 MG/ML VIAL ONE (21:26)
[2019-08-07 21:28] LABS: ALBUMIN 3.2 g/dl (3.4-5.0); ALK PHOS 96 U/L (45-117); ANION GAP 8 MMOL/L (8-16); BILIRUBIN,TOTAL 0.2 mg/dL (0.2-1); BLOOD UREA NITROGEN 19.5 mg/dL (7-18); CALCIUM 8.6 mg/dL (8.5-10.1); CHLORIDE 108 mmol/L (98-107); CO2 29 mmol/L (21-32); CREATININE 0.9 mg/dL (0.55-1.3); GLUCOSE,RANDOM 90 mg/dL (74-106); MAGNESIUM 1.5 mg/dL (1.8-2.4); SGOT/AST 14 U/L (15-37); SGPT/ALT 17 U/L (13-61); SODIUM 144 mmol/L (136-145)
[2019-08-07] MEDS ORDERED: MAGNESIUM SULF 50% (8.12 MEQ/2 ML-1 GM VIAL) IVPB ONE (21:34)
[2019-08-07 21:36] LABS: PHOSPHOROUS 3.9 mg/dL (2.5-4.9)
[2019-08-07] MEDS ORDERED: MAGNESIUM 1GM/D5W - 1 GM/100 ML IVPB IVPB ONE (21:37)
[2019-08-08 00:52] LABS: EPI CELLS 3.4 /HPF (0-5/HPF); HYALINE CASTS 0 /lpf (0-8); URINE APPEARANCE CLEAR; URINE BACTERIA 61.4 /hpf (NEGATIVE); URINE BILIRUBIN NEGATIVE (NEGATIVE); URINE COLOR YELLOW; URINE GLUCOSE (UA) NEGATIVE (NEGATIVE); URINE KETONE NEGATIVE (NEGATIVE); URINE LEUK ESTERASE TRACE (NEGATIVE); URINE NITRITE NEGATIVE (NEGATIVE); URINE PROTEIN NEGATIVE (NEGATIVE); URINE RBC 1 /hpf (0-4); URINE UROBILINOGEN 0.2 mg/dL (0.2-1.0); URINE WBC 8 /hpf (0-5)
--- NOTE | 2019-08-08 01:05 | HP ---
CHIEF COMPLAINT: mechanical fall PCP: doesnt know HISTORY OF PRESENT ILLNESS: This is a 53y/o M hx morbid obesity, anxiety, schizophrenia, DVT (on eliquis and plavix), HTN, HLD, DM, ?conversion disorder vs CVA/TIA in past, ?CAD/OH (x3), peptic ulcer dx, asthma, anemia, vertigo, ?COPD, urinary incontinence, and migraines who presents from [facility] s/p unwitnessed mechanical fall associated with headache/Lbp and loss of consciousness at 1730 today. Admits to waking up on floor with wet diaper. She is c/o 2 days of diffuse abdominal pain, decreased PO intake, nausea, and nbnb emesis x2. Abdominal pain gradual onset diffuse cramping constant worse with eating no hx similar sx. Denies any recent NSAIDs exposure. Denies fever, chills, diarrhea, constipation, blood in stool, vaginal bleeding, vaginal discharge, genital rash. Endorses hematuria x2 days; denies dysuria, urgency, frequency; endorses chronic incontinence. Endorses chronic lower back pain and back surgery, worsened back pain s/p fall/syncope, denies saddle anesthesia or LE weakness or numbness. Denies seizure-like movements or tongue biting (no teeth). Endorses frequent "pre-syncope" episodes last one 8 months ago but states this is the first time she lost consciousness. Denies prodromal symptoms including leg weakness, chest pain, SOB, or palpitations. Endorses intermittent vertigo (known dx x years). Ambulates with cane at baseline. Pt was able to stand with assistance after syncope then walk with cane. Denies new numbness or tingling or weakness since syncope. Endorses blurry vision at baseline given her hx of cataracts and glaucoma. ER course was notable for: (1)CT head negative, CT L spine, abd pelvis-CT a/p: No bowel obstruction or inflammation, there is moderately large stool burden noted. No diverticulitis or colitis, normal appendix. There is nonobstructing fat-containing ventral hernia, no intraperitoneal free air or free fluid. There is mild left-sided hydronephrosis of a partially duplicated collecting system/ureter there is also mild enhancement of the fernando of the last ureter but no clear source of obstruction. possible pyelitis vs UTI, urinary bladder thickening also noted. (2) UA trace leuk, minimal bacteria (3)Mg- 1.5 repleted Recent Travel: denies PAST SURGICAL HISTORY: partial hysterectomy doesnt remember when, back surgery doesnt remember when Social History: Smokin cigg/day X 30+ yrs Alcohol:12 pack beer X 20 yrs but stopped in the 90's Drugs: smoked crack X4 yrs (over 5 yrs ago was last time) Allergies hydromorphone HCl [From Dilaudid] Allergy (Intermediate, Verified 08/07/19 18:27) Itching amoxicillin [Amoxicillin] Allergy (Verified 08/07/19 18:27) ampicillin Allergy (Verified 08/07/19 18:27) aspirin Allergy (Verified 08/07/19 18:27) Difficulty Breathing cranberry Allergy (Verified 08/07/19 18:27) Rash doxycycline Allergy (Verified 08/07/19 18:27) Rash Fish Containing Products Allergy (Verified 08/07/19 18:27) Difficulty Breathing haloperidol [From Haldol] Allergy (Verified 08/07/19 18:27) Rash haloperidol lactate [From Haldol] Allergy (Verified 08/07/19 18:27) Rash ibuprofen [From Motrin] Allergy (Verified 08/07/19 18:27) Difficulty Breathing ketorolac tromethamine [From Toradol] Allergy (Verified 08/07/19 18:27) Rash levofloxacin [From Levaquin] Allergy (Verified 08/07/19 18:27) Rash milk Allergy (Verified 08/07/19 18:27) Difficulty Breathing oxycodone HCl [From Percocet] Allergy (Verified 08/07/19 18:27) Rash Penicillins Allergy (Verified 08/07/19 18:27) Difficulty Breathing sulfamethoxazole [From Bactrim] Allergy (Verified 08/07/19 18:27) Rash trimethoprim [From Bactrim] Allergy (Verified 08/07/19 18:27) warfarin sodium [From Coumadin] Allergy (Verified 08/07/19 18:27) Gravy Allergy (Unknown, Uncoded 08/07/19 18:27) Cranberry/Cranberry juice Allergy (Uncoded 08/07/19 18:27) raw tomato Allergy (Uncoded 08/07/19 18:27) HOME MEDICATIONS: Home Medications Medication Instructions Recorded Albuterol Sulfate Inhaler - 1 inh PO Q4H PRN 06/15/17 [Ventolin HFA Inhaler -] Clonazepam 1 mg PO Q12H 06/15/17 Divalproex [Depakote -] 250 mg PO HS 06/15/17 Ferrous Sulfate 325 mg PO DAILY 06/15/17 Fluoxetine HCl 40 mg PO DAILY 06/15/17 Gabapentin 600 mg PO TID 06/15/17 Levothyroxine [Synthroid -] 50 mcg PO DAILY 06/15/17 Nitroglycerin Sublingual 0.6 mg SL PRN PRN 06/15/17 [Nitrostat -] Polyethylene Glycol 3350 [Clearlax] 17 gm PO DAILY 06/15/17 Quetiapine Fumarate [Seroquel] 200 mg PO HS 06/15/17 Sennosides/Docusate Sodium [Senna 2 each PO HS 06/15/17 Laxative Tablet] Apixaban [Eliquis -] 5 mg PO BID tablet 06/23/17 Budesonide/Formeterol Fumarate 1 inh PO DAILY 06/23/17 [SYMBICORT 80/4.5mcg -] Bupropion HCl [Wellbutrin Xl -] 300 mg PO DAILY tab.sr.24h 06/23/17 Docusate Sodium [Colace] 300 mg PO HS 06/23/17 Furosemide [Lasix -] 40 mg PO DAILY tablet 06/23/17 Metoprolol Succinate [Toprol Xl] 25 mg PO BID 06/23/17 Morphine Sulfate [Morphine Sulfate 30 mg PO Q6H PRN 06/23/17 ER] Pantoprazole Sodium [Protonix -] 40 mg PO DAILY tablet.ec 06/23/17 Simvastatin [Zocor -] 40 mg PO HS 09/12/17 metFORMIN HCL [Metformin HCl] 500 mg PO BID 09/12/17 Benztropine Mesylate [Cogentin -] 0.5 mg PO BID 09/23/17 Divalproex *ER* [Depakote *ER* -] 500 mg PO BID 09/23/17 clonazePAM [Klonopin -] 0.5 mg PO HS tablet MDD 0.5 11/21/17 REVIEW OF SYSTEMS negative except for above findings PHYSICAL EXAMINATION Vital Signs - 24 hr 08/07/19 08/07/19 18:28 22:23 Temperature 97.8 F Pulse Rate 84 Pulse Rate [ 80 Left Radial] Respiratory 16 16 Rate Blood Pressure 115/68 Blood Pressure 113/64 [Left Arm] O2 Sat by Pulse 100 100 Oximetry (%) GENERAL: Awake, alert, and fully oriented, in no acute distress. refused evelio hallpike LUNGS: Breath sounds equal, clear to auscultation bilaterally. No wheezes, and no crackles. No accessory muscle use. HEART: Regular rate and rhythm, normal S1 and S2 without murmur, rub or gallop. ABDOMEN: Soft, nontender, not distended, normoactive bowel sounds, no guarding, no rebound, no masses. No hepatomegaly or splenomegaly. MUSCULOSKELETAL: Normal range of motion at all joints. No bony deformities or tenderness. No CVA tenderness. UPPER EXTREMITIES: 2+ pulses, warm, well-perfused. No cyanosis. No clubbing. No peripheral edema. LOWER EXTREMITIES: 2+ pulses, warm, well-perfused. No calf tenderness. No peripheral edema. NEUROLOGICAL: Cranial nerves II-XII intact. Normal speech. Normal gait. PSYCHIATRIC: Cooperative. Good eye contact. Appropriate mood and affect. SKIN: Warm, dry, normal turgor, no rashes or lesions noted, normal capillary refill. Laboratory Results - last 24 hr 08/07/19 08/07/19 08/07/19 20:00 20:00 20:00 WBC 11.2 H RBC 3.75 Hgb 10.0 L Hct 29.6 L D MCV 78.8 L MCH 26.8 MCHC 34.0 RDW 17.8 H Plt Count 245 MPV 9.8 Absolute Neuts (auto) 7.7 Neutrophils % 68.5 Lymphocytes % 23.7 D Monocytes % 6.0 Eosinophils % 1.2 Basophils % 0.6 Nucleated RBC % 0 PT with INR 12.30 INR 1.04 PTT (Actin FS) 38.4 H Sodium 144 Potassium 4.0 Chloride 108 H Carbon Dioxide 29 Anion Gap 8 BUN 19.5 H Creatinine 0.9 Est GFR (CKD-EPI)AfAm 85.20 Est GFR (CKD-EPI)NonAf 73.51 Random Glucose 90 Calcium 8.6 Phosphorus Magnesium 1.5 L Total Bilirubin 0.2 AST 14 L ALT 17 Alkaline Phosphatase 96 Creatine Kinase 230 H Creatine Kinase Index 1.3 CK-MB (CK-2) 3.2 Troponin I < 0.02 Total Protein 7.0 Albumin 3.2 L Lipase TSH Urine Color Urine Appearance Urine pH Ur Specific [place] Urine Protein Urine Glucose (UA) Urine Ketones Urine Blood Urine Nitrite Urine Bilirubin Urine Urobilinogen Ur Leukocyte Esterase Urine WBC (Auto) Urine RBC (Auto) Urine Casts (Auto) U Epithel Cells (Auto) Urine Bacteria (Auto) 08/07/19 08/08/19 20:00 00:15 WBC RBC Hgb Hct MCV MCH MCHC RDW Plt Count MPV Absolute Neuts (auto) Neutrophils % Lymphocytes % Monocytes % Eosinophils % Basophils % Nucleated RBC % PT with INR INR PTT (Actin FS) Sodium Potassium Chloride Carbon Dioxide Anion Gap BUN Creatinine Est GFR (CKD-EPI)AfAm Est GFR (CKD-EPI)NonAf Random Glucose Calcium Phosphorus 3.9 Magnesium Total Bilirubin AST ALT Alkaline Phosphatase Creatine Kinase Creatine Kinase Index CK-MB (CK-2) Troponin I Total Protein Albumin Lipase 213 TSH 0.74 Urine Color Yellow Urine Appearance Clear Urine pH 6.0 Ur Specific [place] 1.044 H Urine Protein Negative Urine Glucose (UA) Negative Urine Ketones Negative Urine Blood Negative Urine Nitrite Negative Urine Bilirubin Negative Urine Urobilinogen 0.2 Ur Leukocyte Esterase Trace Urine WBC (Auto) 8 Urine RBC (Auto) 1 Urine Casts (Auto) 0 U Epithel Cells (Auto) 3.4 Urine Bacteria (Auto) 61.4 ASSESSMENT/PLAN: This is a 53y/o M hx morbid obesity, anxiety, schizophrenia, DVT (on eliquis and plavix), HTN, HLD, DM, ?conversion disorder vs CVA/TIA in past, ?CAD/[place] (x3), peptic ulcer dx, vertigo, ?COPD vs asthma, urinary incontinence, and migraines who presents from [facility] s/p unwitnessed mechanical fall associated with headache/Lbp and loss of consciousness at 1730 today. Admits to waking up on floor with wet diaper. She is c/o 2 days of diffuse abdominal pain, decreased PO intake, nausea, and nbnb emesis x2. #Syncope - likely 2/2 symptomatic anemia from possible Upper GI bleed vs poor po intake - IV protonix 40 bid, avoid nsaids - npo - GI consult for EGD (Digiorno) - scd's for ppx at this time - BUN slightly elevated with acute drop in Hgb from baseline with syncope event upper GI bleed must be ruled out - FOBT ordered - iron studies pending - on AC eliquis for hx of dvt, will hold at this time - negative orthostatics after fluids - echo ordered - PT eval in AM #Vertigo - chronic per chart review - started on antivert 25 bid as pt states it helped her - refused evelio hallpike - zofran for nausea #DM - iss - A1C ordered - hold metformin and glipizide #HTN - hold BP meds at this time #Migraine hx/Schizoaffective - alert and oriented, no signs of hallucinations, not in acute exacerbation - med rec in am if depakote for migraines vs mood stabilizer - avoid nsaids #Hx of DVT - Holding AC until Upper GI bleed ruled out - SCD's in place Visit type - Emergency Visit Emergency Visit: Yes ED Registration Date: 08/07/19 Care time: The patient presented to the Emergency Department on the above date and was hospitalized for further evaluation of their emergent condition. - New Patient This patient is new to me today: Yes Date on this admission: 08/08/19 - Critical Care Critical Care patient: No ATTENDING PHYSICIAN STATEMENT I saw and evaluated the patient. I reviewed the resident's note and discussed the case with the resident. I agree with the resident's findings and plan as documented. SUBJECTIVE: OBJECTIVE: ASSESSMENT AND PLAN:
[2019-08-08] MEDS: ONDANSETRON 4 MG/2 ML VIAL IVPUSH PRN (01:30)
[2019-08-08] MEDS: MECLIZINE HCL 25 MG TABLET (FP) PO PRN (01:30)
[2019-08-08] MEDS: MORPHINE SULFATE 2 MG/ML VIAL IVPUSH PRN ×4 (02:08→22:34)
[2019-08-08] MEDS: PANTOPRAZOLE SODIUM 40 MG VIAL IVPUSH SCH ×3 (02:08→22:30)
--- NOTE | 2019-08-08 03:06 | PN ---
Teaching Attending Note Name of Resident: Salomon Sandoval ATTENDING PHYSICIAN STATEMENT I saw and evaluated the patient. I reviewed the resident's note and discussed the case with the resident. I agree with the resident's findings and plan as documented. SUBJECTIVE: 53-year-old woman with multiple comorbidities including morbid obesity, anxiety, schizophrenia, DVT on Eliquis and Plavix, hypertension, diabetes mellitus, CVA/TIA, CAD, peptic ulcer disease, asthma who lives in assisted living facility reports loss of consciousness with fall at about 5:30 PM on 08/07/2019. Patient lost consciousness as she was rising from a sitting position and was witnessed by her friend. She endorses possible hit to her head at that time. She was brought to the emergency room by her friend. At this time he does not have any complaints. She denied any black tarry stools or coffee-ground emesis. Denied any overt bleeding. OBJECTIVE: Last Vital Signs Temp Pulse Resp BP Pulse Ox 97.8 F 80 16 113/64 100 08/07/19 18:28 08/07/19 22:23 08/07/19 22:23 08/07/19 22:23 08/07/19 22:23 On exam patient was an obese female not in distress. Head appeared atraumatic and was normocephalic. Upper and lower extremities did not have any deformities or tenderness to palpation. Lungs are Clear to auscultation bilaterally, cardiovascular exam was S1, S2 with regular rate and rhythm. Abdomen is obese, nontender to palpation. Abnormal Lab Results 08/07/19 08/07/19 08/07/19 20:00 20:00 20:00 WBC 11.2 H Hgb 10.0 L Hct 29.6 L D MCV 78.8 L RDW 17.8 H PTT (Actin FS) 38.4 H Chloride 108 H BUN 19.5 H Magnesium 1.5 L AST 14 L Creatine Kinase 230 H Albumin 3.2 L Ur Specific [place] 08/08/19 00:15 WBC Hgb Hct MCV RDW PTT (Actin FS) Chloride BUN Magnesium AST Creatine Kinase Albumin Ur Specific [place] 1.[address] showed no acute intracranial abnormality, no hemorrhage, no visible infarct or mass. CT of abdomen showed no bowel obstruction or inflammation. Moderate large stool burden is noted in the left sigmoid colon. Negative for diverticulitis or colitis. Mild left hydronephrosis and hydroureter and partially duplicated collecting system/ureter. ASSESSMENT AND PLAN: 53-year-old woman status post syncope episode with fall with physical exam and head CT negative for evidence of any trauma.Suspect likely orthostatic hypotension as patient was standing up while she syncopized.Suspect possible upper GI bleed, likely from past peptic ulcer. Noted to have high BUN, microcytic anemia which is an acute drop from her baseline, generalized abdomi nal pain. No history of melena or coffee-ground emesis. Leukocytosis possibly reactive in nature. No active infections identified. [facility] Protonix 40 mg IV twice daily IV fluid hydration Keep n.p.o. Trend CBC Gastroenterology consult Avoid NSAIDs Transthoracic echo Bedrest Fall precautions Check orthostatics Hold her Eliquis and Plavix at this time due to suspected bleed Monitor vital signs closely and watch closely for bleeding #Hypoalbuminemia #Hypomagnesemiasupplement magnesium Resume rest of home medications except for Plavix and Eliquis SCDs for DVT prophylaxis
[2019-08-08] MEDS: INSULIN SLIDING SCALE (NOVOLOG) 1 VIAL SQ SCH ×4 (06:18→21:54)
[2019-08-08 07:07] LABS: HEMATOCRIT 27.2 % (32.4-45.2); HEMOGLOBIN 9.4 GM/dL (10.7-15.3); MCH 27.1 pg (25.7-33.7); MCHC 34.7 g/dl (32.0-36.0); MEAN PLT VOLUME 9.6 fl (7.5-11.1); PLATELET COUNT 204 K/MM3 (134-434); RBC 3.48 M/mm3 (3.60-5.2); RDW 18.4 % (11.6-15.6)
[2019-08-08 07:20] LABS: ALBUMIN 2.9 g/dl (3.4-5.0); BILIRUBIN,TOTAL 0.2 mg/dL (0.2-1); BLOOD UREA NITROGEN 15.9 mg/dL (7-18); CALCIUM 8.6 mg/dL (8.5-10.1); CREATININE 0.9 mg/dL (0.55-1.3); MAGNESIUM 1.7 mg/dL (1.8-2.4); PHOSPHOROUS 3.3 mg/dL (2.5-4.9); TOT PROT 6.1 g/dl (6.4-8.2)
[2019-08-08] MEDS ORDERED: ENOXAPARIN NA (PORCINE) 40 MG/0.4 ML DISP.SYRIN SQ SCH (10:00)
--- NOTE | 2019-08-08 11:54 | EKG ---
Test Reason : Blood Pressure : / mmHG Vent. Rate : 077 BPM Atrial Rate : 077 BPM P-R Int : 144 ms QRS Dur : 088 ms QT Int : 388 ms P-R-T Axes : 037 014 034 degrees QTc Int : 439 ms NORMAL SINUS RHYTHM CANNOT RULE OUT ANTERIOR INFARCT , AGE UNDETERMINED ABNORMAL ECG WHEN COMPARED WITH ECG OF 22-NOV-2017 22:48, NO SIGNIFICANT CHANGE WAS FOUND Confirmed by Thien Poon MD ([id number]) on 08/08/2019 11:54:06 AM Referred By: Confirmed By:Thien Poon MD
[2019-08-08] MEDS ORDERED: morphine CARPU-JECT 2 MG/1 ML DISP.SYRIN IM PRN (13:41)
[2019-08-08] MEDS ORDERED: morphine CARPU-JECT 2 MG/1 ML DISP.SYRIN IVPUSH PRN (14:04)
[2019-08-08] MEDS: LACTATED RINGERS SOLUTION 1,000 ML/1,000 ML INFUS.BAG IV SCH (14:13)
--- NOTE | 2019-08-08 15:03 | PN ---
Progress Note, Physician History of Present Illness: 53 y/o M hx morbid obesity, anxiety, schizophrenia, recurrent DVT (on eliquis ), HTN, HLD, DM, conversion disorder vs CVA/TIA in past, CAD/[place] (x3) on plavix , peptic ulcer dx, asthma, anemia, vertigo, COPD, urinary incontinence, and migraines who presents from [facility] s/p unwitnessed mechanical fall Today Patient seen and examined at bedside in [facility] Patient denies any melena, or bloody vomitus States she fell in facility. Denies any n/v/d/c fevers or chills. Requesting to eat. - Current Medication List Current Medications: Active Medications Lactated Ringer's (Lactated Ringers Solution) 1,000 ml in 1,000 mls @ 75 mls/hr IV [facility] Last Admin: 08/08/19 14:13 Dose: 75 mls/hr Documented by: Insulin Aspart (Novolog Vial Sliding Scale -) 1 vial SQ MERGED WITH [facility]; Protocol Last Admin: 08/08/19 11:24 Dose: Not Given Documented by: Meclizine HCl (Antivert -) 25 mg PO BID PRN PRN Reason: VERTIGO Last Admin: 08/08/19 01:30 Dose: 25 mg Documented by: Morphine Sulfate (Morphine Injection -) 2 mg IVPUSH Q6H PRN PRN Reason: PAIN LEVEL 7 - 10 Ondansetron HCl (Zofran Injection) 4 mg IVPUSH Q6H PRN PRN Reason: NAUSEA Last Admin: 08/08/19 01:30 Dose: 4 mg Documented by: Pantoprazole Sodium (Protonix Iv) 40 mg IVPUSH BID [facility] Last Admin: 08/08/19 09:16 Dose: 40 mg Documented by: - Objective Vital Signs: Vital Signs Temperature 98.1 F 08/08/19 10:00 Pulse Rate 79 08/08/19 10:00 Respiratory Rate 19 08/08/19 10:00 Blood Pressure 130/67 08/08/19 10:00 O2 Sat by Pulse Oximetry (%) 97 08/08/19 08:16 Labs: CBC, BMP 08/08/19 05:50 08/08/19 05:50 INR, PTT INR 1.04 (0.83-1.09) 08/07/19 20:00 Impression/Plan Impression/Plan: Syncope 2/2 Orthostatic Hypotension Orthostatics + on admission Patient had some vomiting which could be contributory Unlikely UGIB - GI consulted HgB stable Continue to treng HgB C/W IV Fluids IV LR @ 75cc/hr FOBT for occult stool as currently no overt bleed 2 -Vertigo on antivert 25 bid continue 3- DM II ISS hold metformin Hba1c 4-HTN Hold All meds 5- Recurrent DVT If HgB continues to be stable and no s/sx of Bleeding will resume her eliquis and plavix Chronic Back Pain Morphine -limit use to 3 days max and q 8 hourly 2 mg IVP 6 Supportive Care DVT px- will resume above after ensuring no overt bleeding Diet- resume Visit type - Emergency Visit Emergency Visit: Yes ED Registration Date: 08/07/19 Care time: The patient presented to the Emergency Department on the above date and was hospitalized for further evaluation of their emergent condition. - New Patient This patient is new to me today: No - Critical Care Critical Care patient: No - Discharge Referral Referred to [facility] Med [facility] No
[2019-08-08 16:27] LABS: BASO % 0.4 % (0-2.0); EOS % 2.2 % (0-4.5); HEMATOCRIT 29.1 % (32.4-45.2); HEMOGLOBIN 9.9 GM/dL (10.7-15.3); LYMPH % 29.3 % (8-40); MCH 26.8 pg (25.7-33.7); MEAN CELL VOLUME 78.9 fl (80-96); MEAN PLT VOLUME 9.4 fl (7.5-11.1); MONO % 6.5 % (3.8-10.2); NEUT % 61.6 % (42.8-82.8); PLATELET COUNT 215 K/MM3 (134-434); RBC 3.69 M/mm3 (3.60-5.2); RDW 17.6 % (11.6-15.6); WHITE BLOOD COUNT 8.1 K/mm3 (4.0-10.0)
[2019-08-08] MEDS: clonazePAM 0.5 MG TABLET PO SCH (22:30)
[2019-08-09] MEDS: MECLIZINE HCL 25 MG TABLET (FP) PO PRN
[2019-08-09] MEDS ORDERED: MELATONIN 5 MG TABLETS PO ONE (03:06)
[2019-08-09] MEDS: MORPHINE SULFATE 2 MG/ML VIAL IVPUSH PRN ×3 (05:15→17:57)
[2019-08-09] MEDS: INSULIN SLIDING SCALE (NOVOLOG) 1 VIAL SQ SCH ×4 (06:02→22:13)
[2019-08-09] MEDS ORDERED: ALBUTEROL SO4 HFA INHALER IH PRN (07:47)
[2019-08-09] MEDS: PANTOPRAZOLE 40 MG TABLET PO SCH ×2 (09:33→22:04)
[2019-08-09] MEDS: FUROSEMIDE 40 MG TABLET (FP) PO SCH (09:33)
[2019-08-09] MEDS: FLUoxetine HCL 20 MG CAPSULE PO SCH (09:33)
[2019-08-09] MEDS: APIXABAN 5 MG TABLET PO SCH ×2 (09:33→22:04)
[2019-08-09] MEDS: GABAPENTIN 300 MG CAPSULE PO SCH ×2 (09:33→22:04)
[2019-08-09] MEDS: clonazePAM 0.5 MG TABLET PO SCH ×2 (09:33→22:04)
[2019-08-09] MEDS: metoPROLOL SUCCINATE 25 MG TAB.SR.24H (FP) PO SCH ×2 (09:33→22:04)
[2019-08-09] MEDS: FERROUS SO4 325 MG TABLET (FP) PO SCH (09:33)
[2019-08-09] MEDS: LEVOTHYROXINE NA 50 MCG TABLET (FP) PO SCH (09:33)
[2019-08-09] MEDS: CLOPIDOGREL BISULFATE 75 MG TABLET (FP) PO SCH (09:39)
[2019-08-09] MEDS ORDERED: BUDESONIDE/FORMETEROL FUMARATE 80/4.5 mcg INHALER IH SCH (10:00)
--- NOTE | 2019-08-09 11:19 | PN ---
Physical Exam: SUBJECTIVE: Patient seen and examined at bedside. Resting comfortably in bed. States she was not able to sleep well last night because she did not get her home meds, otherwise no other complaints. Per nurse, no acute events overnight. Pt is tolerating her diet. OBJECTIVE: Vital Signs Temperature 98.2 F 08/09/19 10:00 Pulse Rate 79 08/09/19 10:00 Respiratory Rate 20 08/09/19 10:00 Blood Pressure 111/54 L 08/09/19 10:00 O2 Sat by Pulse Oximetry (%) 97 08/09/19 09:08 GENERAL: AAOx3. NAD. Resting comfortably in bed. LUNGS: CTa B/L HEART: RR. Normal S1, S2. ABDOMEN: Obese, soft NT/ND. MUSCULOSKELETAL: Normal range of motion at all joints. No bony deformities or tenderness. No CVA tenderness. UPPER EXTREMITIES: 2+ pulses, warm, well-perfused. No cyanosis. No clubbing. No peripheral edema. LOWER EXTREMITIES: 2+ pulses, warm, well-perfused. No calf tenderness. No peripheral edema. NEUROLOGICAL: Cranial nerves II-XII intact. Normal speech. Normal gait. PSYCHIATRIC: Cooperative. Good eye contact. Appropriate mood and affect. SKIN: Warm, dry, normal turgor, no rashes or lesions noted, normal capillary refill. CBC, BMP 08/08/19 15:56 08/08/19 05:50 Active Medications Albuterol Sulfate (Ventolin Hfa Inhaler -) 1 puff IH Q4H PRN PRN Reason: copd Apixaban (Eliquis -) 5 mg PO BID [facility] Last Admin: 08/09/19 09:33 Dose: 5 mg Documented by: Atorvastatin Calcium (Lipitor -) 20 mg PO HS BHARAT Benztropine Mesylate (Cogentin -) 1 mg PO HS [facility] Budesonide/Formoterol Fumarate (Symbicort 80/4.5mcg -) 2 puff IH BID [facility] Clonazepam (Klonopin -) 0.5 mg PO BID [facility] Last Admin: 08/09/19 09:33 Dose: 0.5 mg Documented by: Clopidogrel Bisulfate (Plavix -) 75 mg PO DAILY [facility] Last Admin: 08/09/19 09:39 Dose: 75 mg Documented by: Diphenhydramine HCl (Benadryl -) 25 mg PO HS PRN PRN Reason: ALLERGIES Last Admin: 08/09/19 12:05 Dose: 25 mg Documented by: Divalproex Sodium (Depakote *Er* -) [address] [facility] Ferrous Sulfate (Feosol -) 325 mg PO DAILY [facility] Last Admin: 08/09/19 09:33 Dose: 325 mg Documented by: Fluoxetine HCl (Prozac -) 40 mg PO DAILY [facility] Last Admin: 08/09/19 09:33 Dose: 40 mg Documented by: Furosemide (Lasix -) 40 mg PO DAILY [facility] Last Admin: 08/09/19 09:33 Dose: 40 mg Documented by: Gabapentin (Neurontin -) 600 mg PO BID [facility] Last Admin: 08/09/19 09:33 Dose: 600 mg Documented by: Lactated Ringer's (Lactated Ringers Solution) 1,000 ml in 1,000 mls @ 75 mls/hr IV ASDIR [facility] Last Admin: 08/08/19 14:13 Dose: 75 mls/hr Documented by: Insulin Aspart (Novolog Vial Sliding Scale -) 1 vial SQ [facility]; Protocol Last Admin: 08/09/19 12:05 Dose: 2 units Documented by: Levothyroxine Sodium (Synthroid -) 50 mcg PO DAILY@0700 [facility] Last Admin: 08/09/19 09:33 Dose: 50 mcg Documented by: Meclizine HCl (Antivert -) 25 mg PO BID PRN PRN Reason: VERTIGO Last Admin: 08/09/19 00:00 Dose: 25 mg Documented by: Metoprolol Succinate (Toprol Xl -) 25 mg PO BID [facility] Last Admin: 08/09/19 09:33 Dose: 25 mg Documented by: Morphine Sulfate (Morphine Sulfate) 2 mg IVPUSH Q6H PRN PRN Reason: PAIN LEVEL 7 - 10 Last Admin: 08/09/19 11:43 Dose: 2 mg Documented by: Non-Formulary Medication (Clozapine [Clozaril]) [address] [facility] Ondansetron HCl (Zofran Injection) 4 mg IVPUSH Q6H PRN PRN Reason: NAUSEA Last Admin: 08/08/19 01:30 Dose: 4 mg Documented by: Pantoprazole Sodium (Protonix -) 40 mg PO BID [facility] Last Admin: 08/09/19 09:33 Dose: 40 mg Documented by: Quetiapine Fumarate (Seroquel -) 50 mg PO HS BHARAT Senna/Docusate Sodium (Pericolace -) 2 tablet PO HS [facility] ASSESSMENT/PLAN: 53y/o M hx morbid obesity, anxiety, schizoaffective d/o, DVT (on eliquis and plavix), HTN, HLD, DM, ?conversion disorder vs CVA/TIA in past, ?CAD/[place] (x3), peptic ulcer dx, vertigo, ?COPD vs asthma, urinary incontinence, and migraines who presents from [facility] s/p unwitnessed mechanical fall associated with headache/Lbp and loss of consciousness at 1730 today. Admits to waking up on floor with wet diaper. She is c/o 2 days of diffuse abdominal pain, decreased PO intake, nausea, and nbnb emesis x2. #Syncope; likely 2/2 orthostatic hypotension, poor oral intake, ? viral syndrome as pt presented with vomiting -Orthostatics positive on admission -BUN was slightly elevated upon admission with ? acute drop in Hgb from baseline. Since then, BUN has normalized and Hgb remains stable with no evidence of active bleed. In setting of hx of PUD, GI consulted upon admission. -FOBT ordered - has not yet had bowel movement -Fe 12.5, Iron 41, TIBC 287, Fe sat 14 -Echo ordered Cont home meds: Ferrous Sulfate 325 QD #Vertigo; Acute on chronic. Cont Meclizine 25 BID -IV Zofran for nausea PRN #DM; BGM/ISS ACHS. Hold home meds: Metformin, Glypizide #HTN/HLD; BP stable. Cont home meds: Toprol XL 25 BID, Lasix 40, Atorvastatin 20 HS #Migraine hx/Schizoaffective/Anxiety; Stable. Cont home meds: Benztropine 1, Klonopin 0.5 PO BID, Gabapentin 600 BID, Clozaril 200 mg HS, Depakote 750, Fluoxetine 40, Seroquel 50 HS -Close outpatient follow up with psychiatry #Hx of DVT; Cont home meds: Eliquis 5 BID, Xarelto 75 (pt is allergic to ASA) #Hypothyrodism; Cont home med: Synthroid 50 mcg #Asthma; Cont home med: Albuterol inhaler, Symbicort #Morbid Obesity; BMI 45. Dietary/weight loss counseling. #Prophylaxis DVT: Cont home Eliquis GI: Cont home Protonix #FEN -PO hydration -recheck lytes in AM -Diabetic diet Dispo -cont to monitor on tele Visit type - Emergency Visit Emergency Visit: Yes ED Registration Date: 08/07/19 Care time: The patient presented to the Emergency Department on the above date and was hospitalized for further evaluation of their emergent condition. - New Patient This patient is new to me today: No - Critical Care Critical Care patient: No ATTENDING PHYSICIAN STATEMENT I saw and evaluated the patient. I reviewed the resident's note and discussed the case with the resident. I agree with the resident's findings and plan as documented. SUBJECTIVE: OBJECTIVE: ASSESSMENT AND PLAN:
--- NOTE | 2019-08-09 11:51 | PN ---
Progress Note, Physician History of Present Illness: 53 y/o M hx morbid obesity, anxiety, schizophrenia, recurrent DVT (on eliquis ), HTN, HLD, DM, conversion disorder vs CVA/TIA in past, CAD/TN (x3) on plavix(allergic to ASA) , peptic ulcer dx, asthma, anemia, vertigo, COPD, urinary incontinence, and migraines who presents from [facility] s/p unwitnessed mechanical fall after repeated episode of N/V admitted with Syncope 2/2 Orthostatic Hypotension. Today Patient seen and examined at bedside in [facility] Patient denies any melena, or bloody vomitus States she fell in facility and was having episodes of N/V prior. Denies any n/v/d/c fevers or chills. Has been eating- no episodes of nausea or vomiting since admission - Current Medication List Current Medications: Active Medications Albuterol Sulfate (Ventolin Hfa Inhaler -) 1 puff IH Q4H PRN PRN Reason: copd Apixaban (Eliquis -) 5 mg PO BID [facility] Last Admin: 08/09/19 09:33 Dose: 5 mg Documented by: Atorvastatin Calcium (Lipitor -) 20 mg PO HS [facility] Benztropine Mesylate (Cogentin -) 1 mg PO HS [facility] Budesonide/Formoterol Fumarate (Symbicort 80/4.5mcg -) 2 puff IH BID [facility] Clonazepam (Klonopin -) 0.5 mg PO BID [facility] Last Admin: 08/09/19 09:33 Dose: 0.5 mg Documented by: Clopidogrel Bisulfate (Plavix -) 75 mg PO DAILY [facility] Last Admin: 08/09/19 09:39 Dose: 75 mg Documented by: Divalproex Sodium (Depakote *Er* -) 750 mg PO HS [facility] Ferrous Sulfate (Feosol -) 325 mg PO DAILY [facility] Last Admin: 08/09/19 09:33 Dose: 325 mg Documented by: Fluoxetine HCl (Prozac -) 40 mg PO DAILY [facility] Last Admin: 08/09/19 09:33 Dose: 40 mg Documented by: Furosemide (Lasix -) 40 mg PO DAILY [facility] Last Admin: 08/09/19 09:33 Dose: 40 mg Documented by: Gabapentin (Neurontin -) 600 mg PO BID [facility] Last Admin: 08/09/19 09:33 Dose: 600 mg Documented by: Lactated Ringer's (Lactated Ringers Solution) 1,000 ml in 1,000 mls @ 75 mls/hr IV ASDIR [facility] Last Admin: 08/08/19 14:13 Dose: 75 mls/hr Documented by: Insulin Aspart (Novolog Vial Sliding Scale -) 1 vial SQ [facility]; Protocol Last Admin: 08/09/19 06:02 Dose: Not Given Documented by: Levothyroxine Sodium (Synthroid -) 50 mcg PO DAILY@0700 [facility] Last Admin: 08/09/19 09:33 Dose: 50 mcg Documented by: Meclizine HCl (Antivert -) 25 mg PO BID PRN PRN Reason: VERTIGO Last Admin: 08/09/19 00:00 Dose: 25 mg Documented by: Metoprolol Succinate (Toprol Xl -) 25 mg PO BID [facility] Last Admin: 08/09/19 09:33 Dose: 25 mg Documented by: Morphine Sulfate (Morphine Sulfate) 2 mg IVPUSH Q6H PRN PRN Reason: PAIN LEVEL 7 - 10 Last Admin: 08/09/19 11:43 Dose: 2 mg Documented by: Non-Formulary Medication (Clozapine [Clozaril]) 200 mg PO [facility] Ondansetron HCl (Zofran Injection) 4 mg IVPUSH Q6H PRN PRN Reason: NAUSEA Last Admin: 08/08/19 01:30 Dose: 4 mg Documented by: Pantoprazole Sodium (Protonix -) 40 mg PO BID [facility] Last Admin: 08/09/19 09:33 Dose: 40 mg Documented by: Quetiapine Fumarate (Seroquel -) 50 mg PO [facility] Senna/Docusate Sodium (Pericolace -) 2 tablet PO [facility] - Objective Vital Signs: Vital Signs Temperature 98.2 F 08/09/19 10:00 Pulse Rate 79 08/09/19 10:00 Respiratory Rate 20 08/09/19 10:00 Blood Pressure 111/54 L 08/09/19 10:00 O2 Sat by Pulse Oximetry (%) 97 08/09/19 09:08 Labs: CBC, BMP 08/08/19 15:56 08/08/19 05:50 INR, PTT INR 1.04 (0.83-1.09) 08/07/19 20:00 Impression/Plan Impression/Plan: Syncope 2/2 Orthostatic Hypotension in the setting of N/V Orthostatics + on admission Patient had some vomiting which could be contributory Unlikely UGIB - GI consulted HgB stable Continue to treng HgB C/W IV Fluids IV LR @ 75cc/hr-can d/c patient PO intake adequate FOBT for occult stool as currently no overt bleed Can get TTE-unlikely cardiogenic 2 -Vertigo on antivert 25 bid continue 3- DM II ISS hold metformin Hba1c 4-HTN Hold All meds 5- Recurrent DVT If HgB continues to be stable and no s/sx of Bleeding will resume her eliquis and plavix Chronic Back Pain Morphine -limit use to 3 days max and q 8 hourly 2 mg IVP 6 Supportive Care DVT px- will resume above after ensuring no overt bleeding Diet- resume DISPO PLAN PLAN TO D/C SATURDAY AFTER TTE AND GI CONSULT Visit type - Emergency Visit Emergency Visit: Yes ED Registration Date: 08/07/19 Care time: The patient presented to the Emergency Department on the above date and was hospitalized for further evaluation of their emergent condition. - New Patient This patient is new to me today: No - Critical Care Critical Care patient: No - Discharge Referral Referred to [facility] No
[2019-08-09] MEDS: diphenhydrAMINE HCL 25 MG CAPSULE (FP) PO PRN ×2 (12:05→22:48)
[2019-08-09] MEDS: LACTATED RINGERS SOLUTION 1,000 ML/1,000 ML INFUS.BAG IV SCH (14:00)
[2019-08-09] MEDS ORDERED: PT OWN MED DRAWER 7, Y5N ONE ×3 (14:16→21:27)
[2019-08-09] MEDS: ACETAMINOPHEN 325 MG TABLET (FP) PO PRN (14:46)
[2019-08-09] MEDS: BUDESONIDE/FORMETEROL FUMARATE 80/4.5 mcg INHALER IH SCH ×2 (14:46→22:05)
[2019-08-09 15:29] VITALS: BMI 44.9
[2019-08-09] MEDS ORDERED: ARTIFICIAL TEARS (POLYVINYL ALCOHOL) OPTH DROPS OU ONE (18:45)
[2019-08-09] MEDS ORDERED: BENZTROPINE MESYLATE 0.5 MG TABLET (FP) PO SCH (22:00)
[2019-08-09] MEDS ORDERED: cloZAPine 100 MG TABLET PO ONE (22:00)
[2019-08-09] MEDS ORDERED: CLOZAPINE 200 MG PO SCH (22:00)
[2019-08-09] MEDS: SENNOSIDES/DOCUSATE COMBO (SENNA PLUS) TABLET (UD) PO SCH (22:04)
[2019-08-09] MEDS: ATORVASTATIN CA 20 MG TABLET (FP) PO SCH (22:04)
[2019-08-09] MEDS: QUEtiapine FUMARATE 25 MG TABLET PO SCH (22:05)
[2019-08-09] MEDS: DIVALPROEX NA *ER* EXTEND REL 250 MG TABLET.SA PO SCH (22:05)
[2019-08-10] MEDS: INSULIN SLIDING SCALE (NOVOLOG) 1 VIAL SQ SCH ×4 (06:31→21:50)
[2019-08-10] MEDS: LEVOTHYROXINE NA 50 MCG TABLET (FP) PO SCH (08:37)
[2019-08-10] MEDS ORDERED: PT OWN MED DRAWER 7, Y5N ONE ×5 (09:58→22:57)
[2019-08-10] MEDS: FLUoxetine HCL 20 MG CAPSULE PO SCH (10:46)
[2019-08-10] MEDS: CLOPIDOGREL BISULFATE 75 MG TABLET (FP) PO SCH (10:46)
[2019-08-10] MEDS: clonazePAM 0.5 MG TABLET PO SCH ×2 (10:46→21:48)
[2019-08-10] MEDS: APIXABAN 5 MG TABLET PO SCH ×2 (10:46→21:48)
[2019-08-10] MEDS: GABAPENTIN 300 MG CAPSULE PO SCH ×2 (10:46→21:48)
[2019-08-10] MEDS: metoPROLOL SUCCINATE 25 MG TAB.SR.24H (FP) PO SCH ×2 (10:46→21:47)
[2019-08-10] MEDS: FERROUS SO4 325 MG TABLET (FP) PO SCH (10:46)
[2019-08-10] MEDS: PANTOPRAZOLE 40 MG TABLET PO SCH ×2 (10:46→21:48)
[2019-08-10] MEDS: FUROSEMIDE 40 MG TABLET (FP) PO SCH (10:46)
[2019-08-10] MEDS: BUDESONIDE/FORMETEROL FUMARATE 80/4.5 mcg INHALER IH SCH ×2 (10:47→21:49)
[2019-08-10 12:14] LABS: HEMATOCRIT 30.9 % (32.4-45.2); HEMOGLOBIN 10.5 GM/dL (10.7-15.3); MCH 26.6 pg (25.7-33.7); MEAN CELL VOLUME 78.3 fl (80-96); MEAN PLT VOLUME 9.6 fl (7.5-11.1); PLATELET COUNT 208 K/MM3 (134-434); RBC 3.95 M/mm3 (3.60-5.2); RDW 18.1 % (11.6-15.6); WHITE BLOOD COUNT 9.1 K/mm3 (4.0-10.0)
[2019-08-10 12:38] LABS: BLOOD UREA NITROGEN 16.2 mg/dL (7-18); CALCIUM 9.2 mg/dL (8.5-10.1); MAGNESIUM 1.8 mg/dL (1.8-2.4)
--- NOTE | 2019-08-10 13:51 | ECHO ---
Name: LEXUS ANGEL Exam:Adult Echocardiogram Study Date: 08/10/2019 12:51 PM Age: 53 yrs Reason For Study: SYNCOPE Height: 69 in Weight: 294 lb BSA: 2.4 m2 MMode/2D Measurements & Calculations IVSd: 1.2 cm Ao root diam: 3.1 cm LVIDd: 3.3 cm LA dimension: 3.0 cm LVIDs: 2.5 cm LVPWd: 1.3 cm LVPWs: 1.5 cm EDV(Teich): 45.4 ml ESV(Teich): 22.5 ml LVOT diam: 2.1 cm RV S Tyree: 13.9 cm/sec Doppler Measurements & Calculations MV E max tyree: 70.1 cm/sec Ao V2 max: 132.0 cm/sec MV A max tyree: 103.7 cm/sec Ao max P.0 mmHg MV E/A: 0.68 MV dec time: 0.11 sec JOSÉ MIGUEL(V,D): 2.7 cm2 LV V1 max P.9 mmHg PA V2 max: 86.4 cm/sec LV V1 max: 99.2 cm/sec PA max P.0 mmHg Med Peak E' Tyree: 7.2 cm/sec Med E/e': 9.8 Lat Peak E' Tyree: 7.8 cm/sec Lat E/e': 9.0 Procedure Study Quality: Fair. Left Ventricle The left ventricle is normal in size. There is mild concentric left ventricular hypertrophy. The left ventricular ejection fraction is normal. Ejection Fraction = 55-60%. The transmitral spectral Doppler flow pattern is suggestive of impaired LV relaxation. Right Ventricle The right ventricle is normal in size and function. Atria Normal left and right atrial size and function. Mitral Valve The mitral valve leaflets appear normal. There is no evidence of stenosis, fluttering, or prolapse. T here is no mitral regurgitation noted. Tricuspid Valve The tricuspid valve is not well visualized, but is grossly normal. No tricuspid regurgitation. Aortic Valve The aortic valve is normal in structure and function. Pulmonic Valve The pulmonic valve is not well visualized. Great Vessels The aortic root is normal size. Pericardium/Pleura There is no pericardial effusion. Interpretation Summary LV: Normal size, mild LVH,normal systolic function, EF 55-60%,impaired relaxation RV: Normal No significant valvular dysfunction. Kaylee Monroe 08/10/2019 01:51 PM
[2019-08-10] MEDS: MORPHINE SULFATE 2 MG/ML VIAL IVPUSH PRN ×2 (14:06→20:46)
[2019-08-10] MEDS: DOCUSATE NA 100 MG/10 ML UNIT-DOSE CUPS PO PRN (14:06)
--- NOTE | 2019-08-10 14:38 | PN ---
Progress Note, Physician History of Present Illness: 53 y/o M PMHx of morbid obesity, anxiety, schizophrenia, recurrent DVT (on eliqu is ), HTN, HLD, DM, conversion disorder vs CVA/TIA in past, CAD/OR (x3) on plavix (allergic to ASA) , peptic ulcer dx, asthma, anemia, vertigo, COPD, urinary incontinence, and migraines who presents from [facility] s/p unwitnessed mechanical fall after repeated episode of N/V admitted with Syncope 2/2 Orthostatic Hypotension found to have Iron deficiency Anemia (without active bleed) on AC- GI on board plan for EGD. Today Patient seen and examined at bedside in [facility] Patient denies any melena, or bloody vomitus Denies any n/v/d/c fevers or chills. Has been eating- no episodes of nausea or vomiting since admission. - Current Medication List Current Medications: Active Medications Acetaminophen (Tylenol -) 650 mg PO Q4H PRN PRN Reason: HEADACHE Last Admin: 08/09/19 14:46 Dose: 650 mg Documented by: Albuterol Sulfate (Ventolin Hfa Inhaler -) 1 puff IH Q4H PRN PRN Reason: copd Apixaban (Eliquis -) 5 mg PO BID [facility] Last Admin: 08/10/19 10:46 Dose: 5 mg Documented by: Atorvastatin Calcium (Lipitor -) 20 mg PO HS [facility] Last Admin: 08/09/19 22:04 Dose: 20 mg Documented by: Benztropine Mesylate (Cogentin -) 1 mg PO [facility] Budesonide/Formoterol Fumarate (Symbicort 80/4.5mcg -) 2 puff IH BID [facility] Last Admin: 08/10/19 10:47 Dose: 2 inh Documented by: Clonazepam (Klonopin -) 0.5 mg PO BID [facility] Last Admin: 08/10/19 10:46 Dose: 0.5 mg Documented by: Clopidogrel Bisulfate (Plavix -) 75 mg PO DAILY [facility] Last Admin: 08/10/19 10:46 Dose: 75 mg Documented by: Diphenhydramine HCl (Benadryl -) 25 mg PO HS PRN PRN Reason: ALLERGIES Last Admin: 08/09/19 22:48 Dose: 25 mg Documented by: Divalproex Sodium (Depakote *Er* -) 750 mg PO [facility] Last Admin: 08/09/19 22:05 Dose: 750 mg Documented by: Docusate Sodium (Colace Liquid -) 100 mg PO DAILY PRN PRN Reason: CONSTIPATION Last Admin: 08/10/19 14:06 Dose: 100 mg Documented by: Ferrous Sulfate (Feosol -) 325 mg PO DAILY [facility] Last Admin: 08/10/19 10:46 Dose: 325 mg Documented by: Fluoxetine HCl (Prozac -) 40 mg PO DAILY [facility] Last Admin: 08/10/19 10:46 Dose: 40 mg Documented by: Furosemide (Lasix -) 40 mg PO DAILY [facility] Last Admin: 08/10/19 10:46 Dose: 40 mg Documented by: Gabapentin (Neurontin -) 600 mg PO BID [facility] Last Admin: 08/10/19 10:46 Dose: 600 mg Documented by: Lactated Ringer's (Lactated Ringers Solution) 1,000 ml in 1,000 mls @ 75 mls/hr IV ASDIR [facility] Last Admin: 08/09/19 14:00 Dose: Not Given Documented by: Insulin Aspart (Novolog Vial Sliding Scale -) 1 vial SQ [facility]; Protocol Last Admin: 08/10/19 11:42 Dose: Not Given Documented by: Levothyroxine Sodium (Synthroid -) 50 mcg PO DAILY@0700 [facility] Last Admin: 08/10/19 08:37 Dose: 50 mcg Documented by: Meclizine HCl (Antivert -) 25 mg PO BID PRN PRN Reason: VERTIGO Last Admin: 08/09/19 00:00 Dose: 25 mg Documented by: Metoprolol Succinate (Toprol Xl -) 25 mg PO BID [facility] Last Admin: 08/10/19 10:46 Dose: 25 mg Documented by: Morphine Sulfate (Morphine Sulfate) 2 mg IVPUSH Q6H PRN PRN Reason: PAIN LEVEL 7 - 10 Last Admin: 08/10/19 14:06 Dose: 2 mg Documented by: Non-Formulary Medication (Clozapine [Clozaril]) 200 mg PO [facility] Ondansetron HCl (Zofran Injection) 4 mg IVPUSH Q6H PRN PRN Reason: NAUSEA Last Admin: 08/08/19 01:30 Dose: 4 mg Documented by: Pantoprazole Sodium (Protonix -) 40 mg PO BID [facility] Last Admin: 08/10/19 10:46 Dose: 40 mg Documented by: Quetiapine Fumarate (Seroquel -) 50 mg PO [facility] Last Admin: 08/09/19 22:05 Dose: 50 mg Documented by: Senna/Docusate Sodium (Pericolace -) 2 tablet PO [facility] Last Admin: 08/09/19 22:04 Dose: 2 tablet Documented by: - Objective Vital Signs: Vital Signs Temperature 98 F 08/10/19 14:00 Pulse Rate 88 08/10/19 14:00 Respiratory Rate 18 08/10/19 14:00 Blood Pressure 131/76 08/10/19 14:00 O2 Sat by Pulse Oximetry (%) 98 08/10/19 05:00 Labs: CBC, BMP 08/10/19 11:55 08/10/19 11:55 INR, PTT INR 1.04 (0.83-1.09) 08/07/19 20:00 Impression/Plan Impression/Plan: Syncope 2/2 Orthostatic Hypotension in the setting of N/V and polypharamcy Orthostatics + on admission Patient had some vomiting which could be contributory/On multiple medications Unlikely UGIB - GI consulted/ will need GI follow up for o/p colonoscopy HgB stable Continue to treng HgB IV Fluids IV LR @ 75cc/hr-d/c patient PO intake adequate FOBT for occult stool as currently no overt bleed TTE- completed nL systolic function and no valvular disease 2- Iron Deficiency Anemia in the setting of PUD and on AC On Plavix for OR x 2 in past and CAD On Eliquis for DVT GI plans to perform EGD-request cardiac consult for periop 3-CAD/OR Plavix 75 mg (allergic to ASA) Cardio consult for periop 4 -Vertigo on antivert 25 bid continue 5- DM II ISS hold metformin Xcp2u-8.4% 6-HTN Hold All meds 7- Recurrent DVT HgB stable No overt bleeding GI plans to scope and needs to be held 2days 8-Chronic Back Pain Morphine -limit use to 3 days max and q 8 hourly 2 mg IVP 9- Supportive Care DVT px- will resume above after EGD Diet- resume Dispo after EGD Visit type - Emergency Visit Emergency Visit: Yes ED Registration Date: 08/07/19 Care time: The patient presented to the Emergency Department on the above date and was hospitalized for further evaluation of their emergent condition. - New Patient This patient is new to me today: No - Critical Care Critical Care patient: No - Discharge Referral Referred to [facility] No
--- NOTE | 2019-08-10 15:04 | CON.GI ---
Consult Consult Specialty:: GI Referred by:: medicine Reason for Consultation:: anemia - History of Present Illness Chief Complaint: anemia History of Present Illness: 53F with h/o schizophrenia, HTN, HL, DVT on Eliquis, CVA on Plavix, presenting for evaluation of syncope. Reports dizziness/lightheadedness for the days/weeks prior. GI consulted for microcytic anemia, 1-2g down from baseline. Patient reports one formed black bm on Saturday, none since. Mild diffuse cramping abdominal pain. Reported h/o PUD remotely but does not know how dx. No N/V, tolerating PO currently. - History Source History Provided By: Patient Limitations to Obtaining History: No Limitations - Past Medical History [place]: Yes: CVA (x3?), Migraine, TIA. No: Alzheimer's, Dementia, Multiple Sclerosis, Peripheral Neuropathy, Parkinson's, Seizure, Syncope, Vertigo, Other Cardio/Vascular: Yes: CAD, HTN, Hyperlipdemia, ND (x3 per pt) Pulmonary: Yes: Asthma, Sleep Apnea. No: Bronchitis, Cancer, COPD, O2 Dependent, Pneumonia, Previously Intubated, Pulmonary Embolus, Pulmonary Fibrosis, Other Gastrointestinal: Yes: Peptic Ulcer Disease. No: Ascites, Cancer, Constipation, Crohn's Disease, Diverticulitis, Diverticulosis, Esophageal Varices, Gastritis, GERD, GI Bleed, Hemorrhoids, Hiatal Hernia, Inflamatory Bowel Disease, Irritable Bowel Disease, Pancreatitis, Ulcerative Colitis, Other ...: No Psych: Yes: Addictions (cocaine abuse in past, clean since 2012), Depression, Other (Bipolar disorder) Musculoskeletal: Yes: Chronic low back pain Endocrine: Yes: Diabetes Mellitus, Other (Morbid Obesity) - Alcohol/Substance Use Hx Alcohol Use: No History of Substance Use: reports: Cocaine - Smoking History Smoking history: Current every day smoker Have you smoked in the past 12 months: Yes Aproximately how many cigarettes per day: 10 If you are a former smoker, when did you quit?: 09/18/2014 - Social History Usual Living Arrangement: Assisted Living History of Recent Travel: No Home Medications - Allergies Allergies/Adverse Reactions: Allergies Allergy/AdvReac Type Severity Reaction Status Date / Time hydromorphone HCl Allergy Intermediate Itching Verified 08/07/19 18:27 [From Dilaudid] amoxicillin [Amoxicillin] Allergy Verified 08/07/19 18:27 ampicillin Allergy Verified 08/07/19 18:27 aspirin Allergy Difficulty Verified 08/07/19 18:27 Breathing cranberry Allergy Rash Verified 08/07/19 18:27 doxycycline Allergy Rash Verified 08/07/19 18:27 Fish Containing Products Allergy Difficulty Verified 08/07/19 18:27 Breathing haloperidol [From Haldol] Allergy Rash Verified 08/07/19 18:27 haloperidol lactate Allergy Rash Verified 08/07/19 18:27 [From Haldol] ibuprofen [From Motrin] Allergy Difficulty Verified 08/07/19 18:27 Breathing ketorolac tromethamine Allergy Rash Verified 08/07/19 18:27 [From Toradol] levofloxacin [From Levaquin] Allergy Rash Verified 08/07/19 18:27 milk Allergy Difficulty Verified 08/07/19 18:27 Breathing oxycodone HCl [From Percocet] Allergy Rash Verified 08/07/19 18:27 Penicillins Allergy Difficulty Verified 08/07/19 18:27 Breathing sulfamethoxazole Allergy Rash Verified 08/07/19 18:27 [From Bactrim] trimethoprim [From Bactrim] Allergy Verified 08/07/19 18:27 warfarin sodium Allergy Verified 08/07/19 18:27 [From Coumadin] Gravy Allergy Unknown Uncoded 08/07/19 18:27 Cranberry/Cranberry juice Allergy Uncoded 08/07/19 18:27 raw tomato Allergy Uncoded 08/07/19 18:27 - Home Medications Home Medications: Ambulatory Orders Albuterol Sulfate Inhaler - [Ventolin HFA Inhaler -] 1 inh PO Q4H PRN 06/15/17 Clonazepam 0.5 mg PO Q12H 06/15/17 Ferrous Sulfate 325 mg PO DAILY 06/15/17 Fluoxetine HCl 40 mg PO DAILY 06/15/17 Gabapentin 600 mg PO BID 06/15/17 Levothyroxine [Synthroid -] 100 mcg PO DAILY 06/15/17 Nitroglycerin Sublingual [Nitrostat -] 0.4 mg SL PRN PRN 06/15/17 Quetiapine Fumarate [Seroquel] 50 mg PO HS 06/15/17 Sennosides/Docusate Sodium [Senna Laxative Tablet] 2 each PO HS 06/15/17 Apixaban [Eliquis -] 5 mg PO BID tablet 06/23/17 Budesonide/Formeterol Fumarate [SYMBICORT 80/4.5mcg -] 2 inh IH Q12H 06/23/17 Docusate Sodium [Colace] 100 mg PO DAILY 06/23/17 Furosemide [Lasix -] 40 mg PO DAILY tablet 06/23/17 Metoprolol Succinate [Toprol Xl] 50 mg PO DAILY 06/23/17 Simvastatin [Zocor -] 40 mg PO HS 09/12/17 metFORMIN HCL [Metformin HCl] 500 mg PO BIDAC 09/12/17 Benztropine Mesylate [Cogentin -] 2 mg PO HS 09/23/17 Divalproex *ER* [Depakote *ER* -] 3 tab PO HS 09/23/17 Clozapine [Clozaril] 200 mg PO HS 08/08/19 Pantoprazole Sodium [Protonix -] 40 mg PO BID 08/08/19 Clopidogrel Bisulfate [Plavix] 75 mg PO DAILY 08/09/19 Atorvastatin Ca [Lipitor] 20 mg PO HS 08/10/19 Divalproex *ER* [Depakote *ER* -] 250 mg PO HS 08/10/19 Gabapentin 400 mg PO BID 08/10/19 Magnesium Oxide 400 mg PO DAILY 08/10/19 Melatonin 3 mg PO DAILY 08/10/19 Prazosin HCl [Minipress] 2 mg PO DAILY 08/10/19 Sitagliptin Phosphate [Januvia] 50 mg PO DAILY 08/10/19 Sucralfate [Carafate -] 1 gm PO QID 08/10/19 Family Medical History Family History: Unremarkable Review of Systems - Review of Systems Constitutional: reports: No Symptoms Eyes: reports: No Symptoms HENT: reports: No Symptoms Neck: reports: No Symptoms Cardiovascular: reports: No Symptoms Respiratory: reports: No Symptoms Gastrointestinal: reports: Abdominal Pain, Melena Breasts: reports: No Symptoms Reported Integumentary: reports: No Symptoms Neurological: reports: No Symptoms Endocrine: reports: No Symptoms Hematology/Lymphatic: reports: No Symptoms Psychiatric: reports: No Symptoms Physical Exam-GI Vital Signs: Vital Signs Temperature 98 F 08/10/19 14:00 Pulse Rate 88 08/10/19 14:00 Respiratory Rate 18 08/10/19 14:00 Blood Pressure 131/76 08/10/19 14:00 O2 Sat by Pulse Oximetry (%) 98 08/10/19 05:00 Constitutional: Yes: Well Nourished, No Distress Eyes: Yes: Conjunctiva Clear HENT: Yes: Atraumatic, Normocephalic Cardiovascular: Yes: Regular Rate and Rhythm Respiratory: Yes: CTA Bilaterally ...Palpate: Yes: Soft, Tenderness (diffuse, mild) ...Rectal Exam: Yes: Deferred Neurological: Yes: Alert, Oriented Psychiatric: Yes: Alert, Oriented Labs: CBC, BMP 08/10/19 11:55 08/10/19 11:55 INR, PTT INR 1.04 (0.83-1.09) 08/07/19 20:00 Fe 41 % sat 14 Ferritin 12 Imaging - Results Cat Scan: Report Reviewed Assessment/Plan Patient with iron deficiency anemia and isolated black stool. GI consulted for further w/u. Given black stool, favor UGI etiology (hx PUD). Would plan for EGD to further assess if/when she can safely come off Eliquis for 2d -- and ideally Plavix for 5d. Recommend BID PPI (pt takes BID at home) Trend hgb Discuss w cardiology re holding AC periprocedurally
--- NOTE | 2019-08-10 18:05 | PN ---
<Sterling Amador S - Last Filed: 08/10/19 20:28> Physical Exam: SUBJECTIVE: Patient seen and examined. Patient poorly compliant with interview. Repeatedly falling back asleep and giving short answers to questions when awake. OBJECTIVE: Vital Signs Period Temp Pulse Resp BP Sys/Schultz Pulse Ox Last 24 Hr 98 F-98.7 F 64-88 18-20 115-151/70-99 98-98 GENERAL: Sleepy, noncooperative HEAD: Normal with no signs of trauma. EYES: EOMI ENT: MMM NECK: Trachea midline, full range of motion, supple. LUNGS: Breath sounds equal, clear to auscultation bilaterally, no wheezes, no crackles, no accessory muscle use. HEART: Regular rate and rhythm, S1, S2 without murmur, rub or gallop. ABDOMEN: Soft, nontender, nondistended, normoactive bowel sounds, no guarding, no rebound EXTREMITIES: 2+ pulses, warm, well-perfused, no edema. NEUROLOGICAL: no facial droop noted PSYCH: Normal mood, normal affect. SKIN: Warm, dry, normal turgor Laboratory Results - last 24 hr 08/09/19 08/10/19 08/10/19 22:13 06:11 11:41 WBC RBC Hgb Hct MCV MCH MCHC RDW Plt Count MPV Sodium Potassium Chloride Carbon Dioxide Anion Gap BUN Creatinine Est GFR (CKD-EPI)AfAm Est GFR (CKD-EPI)NonAf POC Glucometer 266 118 156 Random Glucose Calcium Magnesium 08/10/19 08/10/19 08/10/19 11:55 11:55 16:50 WBC 9.1 RBC 3.95 Hgb 10.5 L Hct 30.9 L MCV 78.3 L MCH 26.6 MCHC 34.0 RDW 18.1 H Plt Count 208 MPV 9.6 Sodium 143 Potassium 4.0 Chloride 107 Carbon Dioxide 29 Anion Gap 7 L BUN 16.2 Creatinine 1.0 Est GFR (CKD-EPI)AfAm 75.01 Est GFR (CKD-EPI)NonAf 64.72 POC Glucometer 270 Random Glucose 170 H Calcium 9.2 Magnesium 1.8 Active Medications Generic Name Dose Route Start Last Admin Trade Name Freq PRN Reason Stop Dose Admin Acetaminophen 650 mg 08/09/19 14:24 08/09/19 14:46 Tylenol - PO 650 mg Q4H PRN Administration HEADACHE Albuterol Sulfate 1 puff 08/09/19 07:47 Ventolin Hfa Inhaler - IH Q4H PRN copd Apixaban 5 mg 08/09/19 10:00 08/10/19 10:46 Eliquis - PO 5 mg BID BHARAT Administration Atorvastatin Calcium 20 mg 08/09/19 22:00 08/09/19 22:04 Lipitor - PO 20 mg HS BHARAT Administration Benztropine Mesylate 1 mg 08/10/19 22:00 Cogentin - PO HS BHARAT Budesonide/Formoterol Fumarate 2 puff 08/09/19 11:30 08/10/19 10:47 Symbicort 80/4.5mcg - IH 2 inh BID BHARAT Administration Clonazepam 0.5 mg 08/08/19 22:00 08/10/19 10:46 Klonopin - PO 0.5 mg BID BHARAT Administration Clopidogrel Bisulfate 75 mg 08/09/19 10:00 08/10/19 10:46 Plavix - PO 75 mg DAILY BHARAT Administration Diphenhydramine HCl 25 mg 08/09/19 11:52 08/09/19 22:48 Benadryl - PO 25 mg HS PRN Administration ALLERGIES Divalproex Sodium 750 mg 08/09/19 22:00 08/09/19 22:05 Depakote *Er* - PO 750 mg HS BHARAT Administration Docusate Sodium 100 mg 08/10/19 13:21 08/10/19 14:06 Colace Liquid - PO 100 mg DAILY PRN Administration CONSTIPATION Ferrous Sulfate 325 mg 08/09/19 10:00 08/10/19 10:46 Feosol - PO 325 mg DAILY BHARAT Administration Fluoxetine HCl 40 mg 08/09/19 10:00 08/10/19 10:46 Prozac - PO 40 mg DAILY BHARAT Administration Furosemide 40 mg 08/09/19 10:00 08/10/19 10:46 Lasix - PO 40 mg DAILY BHARAT Administration Gabapentin 600 mg 08/09/19 10:00 08/10/19 10:46 Neurontin - PO 600 mg BID BHARAT Administration Insulin Aspart 1 vial 08/08/19 07:00 08/10/19 17:16 Novolog Vial Sliding Scale - SQ 6 units ACHS BHARAT Administration Protocol Levothyroxine Sodium 50 mcg 08/09/19 09:15 08/10/19 08:37 Synthroid - PO 50 mcg DAILY@0700 BHARAT Administration Meclizine HCl 25 mg 08/08/19 01:07 08/09/19 00:00 Antivert - PO 25 mg BID PRN Administration VERTIGO Metoprolol Succinate 25 mg 08/09/19 10:00 08/10/19 10:46 Toprol Xl - PO 25 mg BID BHARAT Administration Morphine Sulfate 2 mg 08/08/19 16:12 08/10/19 14:06 Morphine Sulfate IVPUSH 2 mg Q6H PRN Administration PAIN LEVEL 7 - 10 Non-Formulary Medication 200 mg 08/09/19 22:00 Clozapine [Clozaril] PO HS BHARAT Ondansetron HCl 4 mg 08/08/19 01:07 08/08/19 01:30 Zofran Injection IVPUSH 4 mg Q6H PRN Administration NAUSEA Pantoprazole Sodium 40 mg 08/09/19 10:00 08/10/19 10:46 Protonix - PO 40 mg BID BHARAT Administration Quetiapine Fumarate 50 mg 08/09/19 22:00 08/09/19 22:05 Seroquel - PO 50 mg HS BHARAT Administration Senna/Docusate Sodium 2 tablet 08/09/19 22:00 08/09/19 22:04 Pericolace - PO 2 tablet HS BHARAT Administration ASSESSMENT/PLAN: 53y/o M hx morbid obesity, anxiety, schizoaffective d/o, DVT (on eliquis and plavix), HTN, HLD, DM, ?conversion disorder vs CVA/TIA in past, ?CAD/AZ (x3), peptic ulcer dx, vertigo, ?COPD vs asthma, urinary incontinence, and migraines who presented from [facility] s/p unwitnessed mechanical fall associated with headache/low blood pressure and loss of consciousness. #Syncope - likely 2/2 orthostatic hypotension, poor oral intake, ? viral syndrome as pt presented with vomiting - Orthostatics positive on admission - BUN was slightly elevated upon admission with ? acute drop in Hgb from baseline. Since then, BUN has normalized and Hgb remains stable with no evidence of active bleed. In setting of hx of PUD, GI consulted upon admission. - FOBT ordered but not completed - Fe 12.5, Iron 41, TIBC 287, Fe sat 14 - Echo without significant abnormalities - Cont home meds: Ferrous Sulfate 325 QD - GI would like to complete EGD, however would like to hold Eliquis for 2 days and hold ideally hold plavix for 5 days prior to EGD - Cardiology consulted for pre-op clearance to to discuss holding AC medication #Vertigo; - Acute on chronic - Cont Meclizine 25 BID - IV Zofran for nausea PRN #DM - BGM - ISS #HTN/HLD; - Toprol XL 25 BID - Lasix 40 - Atorvastatin 20 HS #Migraine hx/Schizoaffective/Anxiety - Cont home meds: Benztropine 1, Klonopin 0.5 PO BID, Gabapentin 600 BID, Clozaril 200 mg HS, Depakote 750, Fluoxetine 40, Seroquel 50 HS - Close outpatient follow up with psychiatry #Hx of DVT - Cont home meds: Eliquis 5 BID, Xarelto 75 (pt is allergic to ASA) #Hypothyrodism - Cont home med: Synthroid 50 mcg #Asthma - Cont home med: Albuterol inhaler, Symbicort #Morbid Obesity - BMI 45 - Dietary/weight loss counseling. #Prophylaxis - Eliquis - Protonix #FEN - PO hydration - monitor and replete lytes as needed - Diabetic diet #Disposition - cardiology consulted for EGD clearance Visit type - Emergency Visit Emergency Visit: Yes ED Registration Date: 08/07/19 Care time: The patient presented to the Emergency Department on the above date and was hospitalized for further evaluation of their emergent condition. - New Patient This patient is new to me today: Yes Date on this admission: 08/10/19 - Critical Care Critical Care patient: No ATTENDING PHYSICIAN STATEMENT I saw and evaluated the patient. I reviewed the resident's note and discussed the case with the resident. I agree with the resident's findings and plan as documented. SUBJECTIVE: OBJECTIVE: ASSESSMENT AND PLAN: <Zuri Jose - Last Filed: 08/18/19 16:09> Physical Exam: SUBJECTIVE: Patient seen and examined OBJECTIVE: Vital Signs Period Temp Pulse Resp BP Sys/Schultz Pulse Ox Last 24 Hr 97.6 F-99.8 F 85-94 20-20 98-122/60-73 98 GENERAL: The patient is awake, alert, and fully oriented, in no acute distress. HEAD: Normal with no signs of trauma. EYES: PERRL, extraocular movements intact, sclera anicteric, conjunctiva clear. No ptosis. ENT: Ears normal, nares patent, oropharynx clear without exudates, moist mucous membranes. NECK: Trachea midline, full range of motion, supple. LUNGS: Breath sounds equal, clear to auscultation bilaterally, no wheezes, no crackles, no accessory muscle use. HEART: Regular rate and rhythm, S1, S2 without murmur, rub or gallop. ABDOMEN: Soft, nontender, nondistended, normoactive bowel sounds, no guarding, no rebound, no hepatosplenomegaly, no masses. EXTREMITIES: 2+ pulses, warm, well-perfused, no edema. NEUROLOGICAL: Cranial nerves II through XII grossly intact. Normal speech, gait not observed. PSYCH: Normal mood, normal affect. SKIN: Warm, dry, normal turgor, no rashes or lesions noted Laboratory Results - last 24 hr 08/17/19 08/17/19 08/18/19 17:03 21:21 06:07 POC Glucometer 231 232 174 08/18/19 11:32 POC Glucometer 280 Active Medications Generic Name Dose Route Start Last Admin Trade Name Freq PRN Reason Stop Dose Admin Acetaminophen 650 mg 08/13/19 21:15 08/16/19 14:04 Tylenol - PO 650 mg Q4H PRN Administration HEADACHE Albuterol Sulfate 1 puff 08/13/19 21:15 Ventolin Hfa Inhaler - IH Q4H PRN copd Apixaban 5 mg 08/13/19 22:00 08/18/19 10:42 Eliquis - PO 5 mg BID BHARAT Administration Artificial Tears 1 drop 08/14/19 16:17 08/14/19 17:01 Artificial Tears OU 1 drop Q24H PRN Administration dry eyes Atorvastatin Calcium 20 mg 08/13/19 22:00 08/17/19 22:28 Lipitor - PO 20 mg HS BHARAT Administration Benztropine Mesylate 1 mg 08/13/19 22:00 08/17/19 22:28 Cogentin - PO 1 mg HS BHARAT Administration Budesonide/Formoterol Fumarate 2 puff 08/13/19 22:00 08/18/19 10:41 Symbicort 80/4.5mcg - IH Not Given BID BHARAT Clonazepam 0.5 mg 08/13/19 22:00 08/18/19 10:41 Klonopin - PO 0.5 mg BID BHARAT Administration Clopidogrel Bisulfate 75 mg 08/14/19 10:00 Plavix - PO DAILY BHARAT Clozapine 200 mg 08/13/19 22:00 08/17/19 22:28 Clozaril - PO 200 mg HS BHARAT Administration Diphenhydramine HCl 25 mg 08/13/19 21:15 08/18/19 00:10 Benadryl - PO 25 mg HS PRN Administration ALLERGIES Divalproex Sodium 750 mg 08/13/19 22:00 08/17/19 22:28 Depakote *Er* - PO 750 mg HS BHARAT Administration Ferrous Sulfate 325 mg 08/14/19 10:00 08/18/19 10:41 Feosol - PO 325 mg DAILY BHARAT Administration Fluoxetine HCl 40 mg 08/14/19 10:00 08/18/19 10:41 Prozac - PO 40 mg DAILY BHARAT Administration Gabapentin 600 mg 08/13/19 22:00 08/18/19 10:40 Neurontin - PO 600 mg BID BHARAT Administration Insulin Aspart 1 vial 08/13/19 22:00 08/18/19 11:35 Novolog Vial Sliding Scale - SQ Not Given ACHS [facility] Protocol Levothyroxine Sodium 50 mcg 08/14/19 07:00 08/18/19 06:09 Synthroid - PO 50 mcg DAILY@0700 BHARAT Administration Meclizine HCl 25 mg 08/13/19 21:15 Antivert - PO BID PRN VERTIGO Metoprolol Succinate 25 mg 08/13/19 22:00 08/18/19 10:40 Toprol Xl - PO 25 mg BID BHARAT Administration Ondansetron HCl 4 mg 08/13/19 21:15 Zofran Injection IVPUSH Q6H PRN NAUSEA Pantoprazole Sodium 40 mg 08/13/19 22:00 08/18/19 10:41 Protonix - PO 40 mg BID BHARAT Administration Polyethylene Glycol 17 gm 08/13/19 22:00 08/18/19 10:41 Miralax (For Daily Use) - PO Not Given BID BHARAT Quetiapine Fumarate 50 mg 08/13/19 22:00 08/17/19 22:28 Seroquel - PO 50 mg HS BHARAT Administration Senna/Docusate Sodium 2 tablet 08/13/19 22:00 08/17/19 22:35 Pericolace - PO Not Given HS [facility] ASSESSMENT/PLAN: ATTENDING PHYSICIAN STATEMENT I saw and evaluated the patient. I reviewed the resident's note and discussed the case with the resident. I agree with the resident's findings and plan as documented. SUBJECTIVE: OBJECTIVE: ASSESSMENT AND PLAN:
[2019-08-10] MEDS: ATORVASTATIN CA 20 MG TABLET (FP) PO SCH (21:47)
[2019-08-10] MEDS: SENNOSIDES/DOCUSATE COMBO (SENNA PLUS) TABLET (UD) PO SCH (21:47)
[2019-08-10] MEDS: QUEtiapine FUMARATE 25 MG TABLET PO SCH (21:48)
[2019-08-10] MEDS: DIVALPROEX NA *ER* EXTEND REL 250 MG TABLET.SA PO SCH (21:48)
[2019-08-10] MEDS: BENZTROPINE MESYLATE 1 MG TABLET PO SCH (21:48)
[2019-08-11] MEDS: MORPHINE SULFATE 2 MG/ML VIAL IVPUSH PRN ×3 (05:24→18:29)
[2019-08-11] MEDS: INSULIN SLIDING SCALE (NOVOLOG) 1 VIAL SQ SCH ×5 (06:03→22:17)
[2019-08-11] MEDS: LEVOTHYROXINE NA 50 MCG TABLET (FP) PO SCH (06:03)
[2019-08-11] MEDS: clonazePAM 0.5 MG TABLET PO SCH ×2 (09:23→21:32)
[2019-08-11] MEDS: metoPROLOL SUCCINATE 25 MG TAB.SR.24H (FP) PO SCH ×2 (09:23→21:32)
[2019-08-11] MEDS: GABAPENTIN 300 MG CAPSULE PO SCH ×2 (09:23→21:32)
[2019-08-11] MEDS: FERROUS SO4 325 MG TABLET (FP) PO SCH (09:23)
[2019-08-11] MEDS: APIXABAN 5 MG TABLET PO SCH ×2 (09:23→21:31)
[2019-08-11] MEDS: FUROSEMIDE 40 MG TABLET (FP) PO SCH (09:23)
[2019-08-11] MEDS: PANTOPRAZOLE 40 MG TABLET PO SCH ×2 (09:24→21:31)
[2019-08-11] MEDS: FLUoxetine HCL 20 MG CAPSULE PO SCH (09:24)
[2019-08-11] MEDS: CLOPIDOGREL BISULFATE 75 MG TABLET (FP) PO SCH (09:24)
[2019-08-11] MEDS: ACETAMINOPHEN 325 MG TABLET (FP) PO PRN (09:25)
[2019-08-11] MEDS: DOCUSATE NA 100 MG/10 ML UNIT-DOSE CUPS PO PRN (09:25)
[2019-08-11] MEDS: BUDESONIDE/FORMETEROL FUMARATE 80/4.5 mcg INHALER IH SCH ×2 (10:00→21:32)
[2019-08-11 10:09] LABS: HEMATOCRIT 30.4 % (32.4-45.2); HEMOGLOBIN 10.3 GM/dL (10.7-15.3); MCH 26.9 pg (25.7-33.7); MEAN CELL VOLUME 79.1 fl (80-96); MEAN PLT VOLUME 9.7 fl (7.5-11.1); PLATELET COUNT 221 K/MM3 (134-434); RBC 3.84 M/mm3 (3.60-5.2); RDW 18.1 % (11.6-15.6); WHITE BLOOD COUNT 8.2 K/mm3 (4.0-10.0)
--- NOTE | 2019-08-11 10:15 | CON.CARD ---
Cardiology Consult (text) - Consultation Consultation Note: Chief Complaint: Events noted, notes reviewed, pre-procedure cardiovascular evaluation prior to proceeding with EGD for evaluation of anemia/tarry stool History of Present Illness: Seen and examined on telemetry. Full consult dictated Medications: Current Medications Acetaminophen (Tylenol -) 650 mg PO Q4H PRN PRN Reason: HEADACHE Last Admin: 08/11/19 09:25 Dose: 650 mg Documented by: Albuterol Sulfate (Ventolin Hfa Inhaler -) 1 puff IH Q4H PRN PRN Reason: copd Apixaban (Eliquis -) 5 mg PO BID [facility] Last Admin: 08/11/19 09:23 Dose: 5 mg Documented by: Atorvastatin Calcium (Lipitor -) 20 mg PO [facility] Last Admin: 08/10/19 21:47 Dose: 20 mg Documented by: Benztropine Mesylate (Cogentin -) 1 mg PO [facility] Last Admin: 08/10/19 21:48 Dose: 1 mg Documented by: Budesonide/Formoterol Fumarate (Symbicort 80/4.5mcg -) 2 puff IH BID [facility] Last Admin: 08/10/19 21:49 Dose: Not Given Documented by: Clonazepam (Klonopin -) 0.5 mg PO BID [facility] Last Admin: 08/11/19 09:23 Dose: 0.5 mg Documented by: Clopidogrel Bisulfate (Plavix -) 75 mg PO DAILY [facility] Last Admin: 08/11/19 09:24 Dose: Not Given Documented by: Diphenhydramine HCl (Benadryl -) 25 mg PO HS PRN PRN Reason: ALLERGIES Last Admin: 08/09/19 22:48 Dose: 25 mg Documented by: Divalproex Sodium (Depakote *Er* -) 750 mg PO [facility] Last Admin: 08/10/19 21:48 Dose: 750 mg Documented by: Docusate Sodium (Colace Liquid -) 100 mg PO DAILY PRN PRN Reason: CONSTIPATION Last Admin: 08/10/19 14:06 Dose: 100 mg Documented by: Ferrous Sulfate (Feosol -) 325 mg PO DAILY [facility] Last Admin: 08/11/19 09:23 Dose: 325 mg Documented by: Fluoxetine HCl (Prozac -) 40 mg PO DAILY [facility] Last Admin: 08/11/19 09:24 Dose: 40 mg Documented by: Furosemide (Lasix -) 40 mg PO DAILY [facility] Last Admin: 08/11/19 09:23 Dose: 40 mg Documented by: Gabapentin (Neurontin -) 600 mg PO BID [facility] Last Admin: 08/11/19 09:23 Dose: 600 mg Documented by: Insulin Aspart (Novolog Vial Sliding Scale -) 1 vial SQ [facility]; Protocol Last Admin: 08/11/19 06:03 Dose: Not Given Documented by: Levothyroxine Sodium (Synthroid -) 50 mcg PO DAILY@0700 [facility] Last Admin: 08/11/19 06:03 Dose: 50 mcg Documented by: Meclizine HCl (Antivert -) 25 mg PO BID PRN PRN Reason: VERTIGO Last Admin: 08/09/19 00:00 Dose: 25 mg Documented by: Metoprolol Succinate (Toprol Xl -) 25 mg PO BID [facility] Last Admin: 08/11/19 09:23 Dose: 25 mg Documented by: Morphine Sulfate (Morphine Sulfate) 2 mg IVPUSH Q6H PRN PRN Reason: PAIN LEVEL 7 - 10 Last Admin: 08/11/19 05:24 Dose: 2 mg Documented by: Non-Formulary Medication (Clozapine [Clozaril]) 200 mg PO [facility] Ondansetron HCl (Zofran Injection) 4 mg IVPUSH Q6H PRN PRN Reason: NAUSEA Last Admin: 08/08/19 01:30 Dose: 4 mg Documented by: Pantoprazole Sodium (Protonix -) 40 mg PO BID [facility] Last Admin: 08/11/19 09:24 Dose: 40 mg Documented by: Quetiapine Fumarate (Seroquel -) 50 mg PO [facility] Last Admin: 08/10/19 21:48 Dose: 50 mg Documented by: Senna/Docusate Sodium (Pericolace -) 2 tablet PO [facility] Last Admin: 08/10/19 21:47 Dose: 2 tablet Documented by: Review of Systems Constitutional: denies: Chills or Fever Cardiovascular: as noted above Respiratory: denies: Cough Gastrointestinal: denies: Nausea, Vomiting, Diarrhea, Constipation or Abdominal Pain Genitourinary: denies: Dysuria Musculoskeletal: denies: Joint Pain Neurological: denies: Dizziness or Headache Vital Signs: Last Vital Signs Temp Pulse Resp BP Pulse Ox 98.4 F 94 H 16 109/64 94 L 03/10/20 09:28 08/11/19 09:28 08/11/19 09:28 08/11/19 09:28 08/11/19 05:00 Intake & Output 08/08/19 08/09/19 08/10/19 08/11/19 22:59 23:59 23:59 23:59 Intake Total 1240 120 Balance 1240 120 Weight Constitutional: No Distress, Calm, Thin Respiratory: Diminished Breath Sounds at the Bases Cardiovascular: S1 S2 Regular Rate and Rhythm Gastrointestinal: Soft Benign Normal Bowel Sounds Ext: No Edema Labs: CBC, BMP 08/11/19 09:38 Hepatic Panel Total Bilirubin 0.2 mg/dL (0.2-1) 08/08/19 05:50 AST 14 U/L (15-37) L 08/08/19 05:50 ALT 15 U/L (13-61) 08/08/19 05:50 Alkaline Phosphatase 89 U/L (45-117) 08/08/19 05:50 Albumin 2.9 g/dl (3.4-5.0) L 08/08/19 05:50 INR, PTT INR 1.04 (0.83-1.09) 08/07/19 20:00 Assessment/Plan ASSESSMENT: 1. Pre-procedure cardiovascular evaluation prior to proceeding with EGD for evaluation of anemia/tarry stool in a patient with known history of coronary artery disease post reported myocardial infarction angina pectoris/Clinically stable 2. Diastolic left ventricular dysfunction with clinical class 0 [place] [employer] classification of ventricular failure 3. History of cerebrovascular event/transient ischemic attack on Plavix therapy/Aspirin allergy 4. Hypertensive cardiovascular disease 5. 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 6. Hypercholesterolemia 7. Deep vein thrombosis on DOAC/Eliquis therapy 8. Admission with a mechanical fall questionable syncope 9. Recently noted anemia/tarry stool as noted above 10. Obstructive sleep apnea 11. History of bipolar disorder 12. Obesity PLAN: 1. Continue Toprol-XL 2. Ideally patient should be on NGOZI inhibitor or angiotensin receptor chuy therapy unless they are absolutely contraindicated 3. Continue Lipitor 4. Continue Lasix 5. There are no absolute contraindications in proceeding with the above planned gastrointestinal procedure considering that there is no clinical evidence of acute coronary syndrome and/or decompensated congestive heart failure and/or malignant ventricular arrhythmia, Plavix therapy should be withheld for 5-7 days prior to the above planned procedure/Eliquis therapy to be withheld for 24-48 hours prior to the above planned procedure- patient's cardiovascular medications are to be administered in the morning of the procedure with a sip of water Hanane Osman M.D.
[2019-08-11 10:27] LABS: BLOOD UREA NITROGEN 20.7 mg/dL (7-18); CALCIUM 8.7 mg/dL (8.5-10.1); CREATININE 1.1 mg/dL (0.55-1.3); POTASSIUM 4.3 mmol/L (3.5-5.1)
--- NOTE | 2019-08-11 13:01 | CONS ---
DATE OF CONSULTATION: 08/11/2019 Consultation requested by hospitalist service. CHIEF COMPLAINT: Fall, questionable syncope, preprocedure cardiovascular evaluation. HISTORY OF PRESENT ILLNESS: A 53-year-old obese female of -[place] descent with known history of coronary artery disease, reported myocardial infarction, angina pectoris, diastolic left ventricular dysfunction with clinical class 0 [place] Heart [employer] classification left ventricular failure, cerebrovascular disease, transient ischemic attack on Plavix therapy, hypertensive cardiovascular disease, diabetes mellitus, hypercholesterolemia, hypothyroidism, obstructive sleep apnea, peptic ulcer disease, bipolar disorder, substance abuse, who was admitted to [facility] after sustaining a fall, questionable syncopal episode. Patient was noted to have evidence of anemia and reported black, tarry stool, in view of which upper endoscopy is planned. Preprocedure cardiovascular evaluation was requested. Patient denies any recent chest discomfort. Patient reports dyspnea with [id number] physical exertion. Patient denies any orthopnea, paroxysmal nocturnal dyspnea or peripheral edema. Patient denies any palpitations, dizziness, lightheadedness or syncope. PAST MEDICAL HISTORY: Coronary artery disease, post-reported myocardial infarction, angina pectoris, diastolic left ventricular dysfunction with clinical class 0 [place] Heart [employer] classification left ventricular failure, cerebrovascular disease, transient ischemic attack on Plavix therapy, hypertensive cardiovascular disease, diabetes mellitus, hypercholesterolemia, hypothyroidism, obstructive sleep apnea, peptic ulcer disease, bipolar disorder, polysubstance abuse, recent DVT on Eliquis therapy. FAMILY HISTORY: Positive coronary artery disease. ALLERGIES: SEVERAL LISTED. MEDICAL THERAPY: Currently includes Tylenol 650 mg every 4 hours as needed, Ventolin HFA as needed, Eliquis 5 mg twice a day, Lipitor 20 mg once a day, Cogentin 1 mg once a day, Symbicort 2 puffs twice a day, Klonopin 0.5 mg twice a day, Plavix 75 mg once a day, Benadryl 25 mg once a day, Depakote 750 mg once a day, Colace 100 mg daily as needed, ferrous sulfate 325 once a day, Prozac 40 mg once a day, Lasix 40 mg once a day, Neurontin 600 mg twice a day, insulin coverage, Synthroid 50 mcg once daily, meclizine 25 mg twice a day as needed, Toprol XL 25 mg twice a day, morphine as needed for pain 2 mg every 6 hours, Clozaril 200 mg once a day, Zofran 4 mg IV push as needed, Protonix 40 mg twice a day, Seroquel 50 mg once a day, Kena-Colace 2 tablets daily. REVIEW OF SYSTEMS: Head and Neck: Denies headache, photophobia, blurring of vision. Respiratory: No cough or sputum production. Cardiovascular: As noted above. Gastrointestinal: Denied nausea, vomiting, diarrhea, abdominal pain. Genitourinary: No symptoms reported. Musculoskeletal: No symptoms reported. PHYSICAL EXAMINATION: Vital Signs: Blood pressure is 109/64 mmHg, pulse rate is 94 beats per minute. Head and Neck: Pupils equal, react to light and accommodation. Extraocular muscles are intact. Anicteric sclerae. Negative JVD. No bruit appreciated. Chest: Clear to auscultation and percussion. Cardiovascular: S1, S2, regular. No murmurs appreciated. Abdomen: Soft. Benign. Normoactive bowel sounds. Extremities: Negative edema. Intact distal pulses. No calf tenderness. Electrocardiogram reveals sinus rhythm with poor R-wave progression and nonspecific T-wave abnormality. Echocardiography performed August 10, 2019, revealed normal left ventricular systolic function with estimated LVEF between 55%-60%, impaired relaxation of the left ventricle with mild concentric left ventricular hypertrophy and no significant valvular pathology. CBC reveals white cell count 8.2, hemoglobin 10.3, platelet count 221. Basic metabolic profile revealed sodium 144, potassium 4.3, BUN 20.7, creatinine 1.1, estimated GFR 66.85, glucose 194. ASSESSMENT: 1. Preprocedure cardiovascular evaluation, prior to proceeding with esophagogastroduodenoscopy for evaluation of anemia/tarry stool, in a patient with known history of coronary artery disease, post-reported myocardial infarction, angina pectoris. Clinically stable. 2. Diastolic left ventricular dysfunction with clinical class 0 [place] Heart [employer] classification left ventricular failure. 3. History of cerebrovascular event, transient ischemic attack on Plavix therapy. Patient is allergic to ASPIRIN. 4. Hypertensive cardiovascular disease. 5. 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. 6. Hypercholesterolemia. 7. History of deep vein thrombosis on Eliquis therapy. 8. Admission with mechanical fall; questionable syncope. 9. Recently noted anemia, tarry stool as noted above. 10. History of obstructive sleep apnea. 11. History of bipolar disorder. 12. Obesity. RECOMMENDATIONS: 1. Continuation of Toprol XL therapy. 2. Ideally, patient should be on NGOZI inhibitor or angiotensin-receptor chuy therapy, unless it is contraindicated. 3. Continuation of Lipitor therapy. 4. Continuation of Lasix therapy. 5. There are no absolute contraindications in proceeding with the above-planned gastrointestinal procedure, considering that there is no clinical evidence of acute coronary syndrome and/or decompensated congestive heart failure and/or malignant ventricular arrhythmia. Plavix therapy should be withheld 5-7 days prior to the above-planned procedure. Eliquis therapy to be withheld for 24-48 hours prior to the above-planned procedure. Patient's cardiovascular medications are to be administered in the morning of the procedure with a sip of water. Thank you for the kind referral. PRITI WILLETT M.D. [id number]
--- NOTE | 2019-08-11 13:53 | PN ---
Teaching Attending Note Name of Resident: Sterling Amador ATTENDING PHYSICIAN STATEMENT I saw and evaluated the patient. I reviewed the resident's note and discussed the case with the resident. I agree with the resident's findings and plan as documented. SUBJECTIVE: complains of some lightheadedness. No nausea/vomiting. No visual disturbance/limb numbness or weakness. No nausea/vomiting/melena/hematochezia/hematemesis. OBJECTIVE: Afebrile, Hemodynamically stable. Last Vital Signs Temp Pulse Resp BP Pulse Ox 98.4 F 94 H 16 109/64 94 L 08/11/19 09:28 08/11/19 09:28 08/11/19 09:28 08/11/19 09:28 08/11/19 05:00 HEENT - Atraumatic, Nomocephalic. Heart - S1, S2, RRR Lungs - clear to auscultation Abdomen - High BMI. Soft. Bowel Sounds normal. Extremities - bilateral calf tenderness. No edema. Laboratory Results - last 24 hr 08/10/19 08/10/19 08/11/19 16:50 21:41 05:23 WBC RBC Hgb Hct MCV MCH MCHC RDW Plt Count MPV Sodium Potassium Chloride Carbon Dioxide Anion Gap BUN Creatinine Est GFR (CKD-EPI)AfAm Est GFR (CKD-EPI)NonAf POC Glucometer 270 172 160 Random Glucose Calcium 08/11/19 08/11/19 08/11/19 09:38 09:38 12:15 WBC 8.2 RBC 3.84 Hgb 10.3 L Hct 30.4 L MCV 79.1 L MCH 26.9 MCHC 34.0 RDW 18.1 H Plt Count 221 MPV 9.7 Sodium 144 Potassium 4.3 Chloride 106 Carbon Dioxide 31 Anion Gap 7 L BUN 20.7 H Creatinine 1.1 Est GFR (CKD-EPI)AfAm 66.85 Est GFR (CKD-EPI)NonAf 57.68 POC Glucometer 198 Random Glucose 194 H Calcium 8.7 Current Medications Generic Name Dose Route Start Last Admin Trade Name Freq PRN Reason Stop Dose Admin Acetaminophen 650 mg 08/09/19 14:24 08/11/19 09:25 Tylenol - PO 650 mg Q4H PRN Administration HEADACHE Albuterol Sulfate 1 puff 08/09/19 07:47 Ventolin Hfa Inhaler - IH Q4H PRN copd Apixaban 5 mg 08/09/19 10:00 08/11/19 09:23 Eliquis - PO 5 mg BID BHARAT Administration Atorvastatin Calcium 20 mg 08/09/19 22:00 08/10/19 21:47 Lipitor - PO 20 mg HS BHARAT Administration Benztropine Mesylate 1 mg 08/10/19 22:00 08/10/19 21:48 Cogentin - PO 1 mg HS BHARAT Administration Budesonide/Formoterol Fumarate 2 puff 08/09/19 11:30 08/11/19 10:00 Symbicort 80/4.5mcg - IH Not Given BID BHARAT Clonazepam 0.5 mg 08/08/19 22:00 08/11/19 09:23 Klonopin - PO 0.5 mg BID BHARAT Administration Clopidogrel Bisulfate 75 mg 08/09/19 10:00 08/11/19 09:24 Plavix - PO Not Given DAILY BHARAT Diphenhydramine HCl 25 mg 08/09/19 11:52 08/09/19 22:48 Benadryl - PO 25 mg HS PRN Administration ALLERGIES Divalproex Sodium 750 mg 08/09/19 22:00 08/10/19 21:48 Depakote *Er* - PO 750 mg HS BHARAT Administration Docusate Sodium 100 mg 08/12/19 10:00 Colace - PO DAILY BHARAT Ferrous Sulfate 325 mg 08/09/19 10:00 08/11/19 09:23 Feosol - PO 325 mg DAILY BHARAT Administration Fluoxetine HCl 40 mg 08/09/19 10:00 08/11/19 09:24 Prozac - PO 40 mg DAILY BHARAT Administration Furosemide 40 mg 08/09/19 10:00 08/11/19 09:23 Lasix - PO 40 mg DAILY BHARAT Administration Gabapentin 600 mg 08/09/19 10:00 08/11/19 09:23 Neurontin - PO 600 mg BID BHARAT Administration Insulin Aspart 1 vial 08/08/19 07:00 08/11/19 12:16 Novolog Vial Sliding Scale - SQ 2 units ACHS BHARAT Administration Protocol Levothyroxine Sodium 50 mcg 08/09/19 09:15 08/11/19 06:03 Synthroid - PO 50 mcg DAILY@0700 BHARAT Administration Meclizine HCl 25 mg 08/08/19 01:07 08/09/19 00:00 Antivert - PO 25 mg BID PRN Administration VERTIGO Metoprolol Succinate 25 mg 08/09/19 10:00 08/11/19 09:23 Toprol Xl - PO 25 mg BID BHARAT Administration Morphine Sulfate 2 mg 08/08/19 16:12 08/11/19 12:23 Morphine Sulfate IVPUSH 2 mg Q6H PRN Administration PAIN LEVEL 7 - 10 Non-Formulary Medication 200 mg 08/09/19 22:00 Clozapine [Clozaril] PO HS [facility] Ondansetron HCl 4 mg 08/08/19 01:07 08/08/19 01:30 Zofran Injection IVPUSH 4 mg Q6H PRN Administration NAUSEA Pantoprazole Sodium 40 mg 08/09/19 10:00 08/11/19 09:24 Protonix - PO 40 mg BID [facility] Administration Quetiapine Fumarate 50 mg 08/09/19 22:00 08/10/19 21:48 Seroquel - PO 50 mg HS [facility] Administration Senna/Docusate Sodium 2 tablet 08/09/19 22:00 08/10/19 21:47 Pericolace - PO 2 tablet HS [facility] Administration Home Medications Medication Instructions Recorded Albuterol Sulfate Inhaler - 1 inh PO Q4H PRN 06/15/17 [Ventolin HFA Inhaler -] Clonazepam 0.5 mg PO Q12H 06/15/17 Ferrous Sulfate 325 mg PO DAILY 06/15/17 Fluoxetine HCl 40 mg PO DAILY 06/15/17 Gabapentin 600 mg PO BID 06/15/17 Levothyroxine [Synthroid -] 100 mcg PO DAILY 06/15/17 Nitroglycerin Sublingual 0.4 mg SL PRN PRN 06/15/17 [Nitrostat -] Quetiapine Fumarate [Seroquel] 50 mg PO HS 06/15/17 Sennosides/Docusate Sodium [Senna 2 each PO HS 06/15/17 Laxative Tablet] Apixaban [Eliquis -] 5 mg PO BID tablet 06/23/17 Budesonide/Formeterol Fumarate 2 inh IH Q12H 06/23/17 [SYMBICORT 80/4.5mcg -] Docusate Sodium [Colace] 100 mg PO DAILY 06/23/17 Furosemide [Lasix -] 40 mg PO DAILY tablet 06/23/17 Metoprolol Succinate [Toprol Xl] 50 mg PO DAILY 06/23/17 Simvastatin [Zocor -] 40 mg PO HS 09/12/17 metFORMIN HCL [Metformin HCl] 500 mg PO BIDAC 09/12/17 Benztropine Mesylate [Cogentin -] 2 mg PO HS 09/23/17 Divalproex *ER* [Depakote *ER* -] 3 tab PO HS 09/23/17 Clozapine [Clozaril] 200 mg PO HS 08/08/19 Pantoprazole Sodium [Protonix -] 40 mg PO BID 08/08/19 Clopidogrel Bisulfate [Plavix] 75 mg PO DAILY 08/09/19 Atorvastatin Ca [Lipitor] 20 mg PO HS 08/10/19 Divalproex *ER* [Depakote *ER* -] 250 mg PO HS 08/10/19 Gabapentin 400 mg PO BID 08/10/19 Magnesium Oxide 400 mg PO DAILY 08/10/19 Melatonin 3 mg PO DAILY 08/10/19 Prazosin HCl [Minipress] 2 mg PO DAILY 08/10/19 Sitagliptin Phosphate [Januvia] 50 mg PO DAILY 08/10/19 Sucralfate [Carafate -] 1 gm PO QID 08/10/19 ASSESSMENT/PLAN: 53 year old female with history of morbid obesity, anxiety, schizophrenia, recurrent DVT (on eliquis), HTN, HLD, DM 2, ? conversion disorder, CAD s/p IN (x3) on Plavix (allergic to ASA), PUD, asthma, chronic anemia, histor of BPPV, COPD, urinary incontinence, and migraines, presents from [facility] with Syncope/nausea/vomiting/dark stool. 1. Syncope secondary to Orthostasis due to dehydration sec to Nausea/vomiting, now resolved. Echo - normal Complains of some ongoing lightheadedness. Will repeat Orthostatic Vitals. PT 2. Iron deficiency Anemia Reported Melena Seen by GI - recommend EGD Cleared by Cardiology for EGD s/p holding Plavix for 5-7 days and Eliquis for 24-48 hours. Will discuss with GI arranging for study to be done as out-patient. FOBT pending. 3. CAD s/p IN x 3. Plavix held for EGD. Continue BB and Statin 4. Hx DVT - Eliquis to be held 24-48 hours before EGD. 5. BPPV - Continue Meclizine. May benefit from vestibular rehab as out-patient. 6. DM 2, uncontrolled. A1C 7.4. Maintain on sliding scale. 7. HTN - Continue Toprol. 8. Hypothyroidism - continue Levothyroxine. 9. Schizophrenia - Stable. Continue Seroquel, Clozapine, Cogentin, Clonazepam, Fluoxetine, Depakote. 10. Chronic Diastolic CHF - Stable. Continue Lasix. 11. COPD - stale. On Symbicort, Albuterol PRN. GI Px - Protonix BID DVT Px - on Eliquis (to be held 24-48 hours prior to EGD)
--- NOTE | 2019-08-11 16:13 | PN ---
Physical Exam: SUBJECTIVE: Patient seen and examined. Patient denied rectal exam. Complains of mild abd pain but otherwise denies any complaints. States she has not had a BM since she came in. OBJECTIVE: Vital Signs Period Temp Pulse Resp BP Sys/Schultz Pulse Ox Last 24 Hr 97.9 F-98.8 F 73-116 16-20 106-138/44-80 94-94 GENERAL: awake, no acute distress HEAD: Normal with no signs of trauma. EYES: EOMI ENT: MMM NECK: Trachea midline, full range of motion, supple. LUNGS: Breath sounds equal, clear to auscultation bilaterally, no wheezes, no crackles, no accessory muscle use. HEART: Regular rate and rhythm, S1, S2 without murmur, rub or gallop. ABDOMEN: Soft, nontender, nondistended, normoactive bowel sounds, no guarding, no rebound EXTREMITIES: 2+ pulses, warm, well-perfused, no edema. NEUROLOGICAL: no facial droop noted, normal speech, gait not observed PSYCH: Normal mood, normal affect. SKIN: Warm, dry, normal turgor Laboratory Results - last 24 hr 08/10/19 08/10/19 08/11/19 16:50 21:41 05:23 WBC RBC Hgb Hct MCV MCH MCHC RDW Plt Count MPV Sodium Potassium Chloride Carbon Dioxide Anion Gap BUN Creatinine Est GFR (CKD-EPI)AfAm Est GFR (CKD-EPI)NonAf POC Glucometer 270 172 160 Random Glucose Calcium 08/11/19 08/11/19 08/11/19 09:38 09:38 12:15 WBC 8.2 RBC 3.84 Hgb 10.3 L Hct 30.4 L MCV 79.1 L MCH 26.9 MCHC 34.0 RDW 18.1 H Plt Count 221 MPV 9.7 Sodium 144 Potassium 4.3 Chloride 106 Carbon Dioxide 31 Anion Gap 7 L BUN 20.7 H Creatinine 1.1 Est GFR (CKD-EPI)AfAm 66.85 Est GFR (CKD-EPI)NonAf 57.68 POC Glucometer 198 Random Glucose 194 H Calcium 8.7 08/11/19 15:16 WBC RBC Hgb Hct MCV MCH MCHC RDW Plt Count MPV Sodium Potassium Chloride Carbon Dioxide Anion Gap BUN Creatinine Est GFR (CKD-EPI)AfAm Est GFR (CKD-EPI)NonAf POC Glucometer 204 Random Glucose Calcium Active Medications Generic Name Dose Route Start Last Admin Trade Name Freq PRN Reason Stop Dose Admin Acetaminophen 650 mg 08/09/19 14:24 08/11/19 09:25 Tylenol - PO 650 mg Q4H PRN Administration HEADACHE Albuterol Sulfate 1 puff 08/09/19 07:47 Ventolin Hfa Inhaler - IH Q4H PRN copd Apixaban 5 mg 08/09/19 10:00 08/11/19 09:23 Eliquis - PO 5 mg BID BHARAT Administration Atorvastatin Calcium 20 mg 08/09/19 22:00 08/10/19 21:47 Lipitor - PO 20 mg HS BHARAT Administration Benztropine Mesylate 1 mg 08/10/19 22:00 08/10/19 21:48 Cogentin - PO 1 mg HS BHARAT Administration Budesonide/Formoterol Fumarate 2 puff 08/09/19 11:30 08/11/19 10:00 Symbicort 80/4.5mcg - IH Not Given BID BHARAT Clonazepam 0.5 mg 08/08/19 22:00 08/11/19 09:23 Klonopin - PO 0.5 mg BID BHARAT Administration Clopidogrel Bisulfate 75 mg 08/09/19 10:00 08/11/19 09:24 Plavix - PO Not Given DAILY BHARAT Clozapine 200 mg 08/11/19 22:00 Clozaril - PO HS BHARAT Diphenhydramine HCl 25 mg 08/09/19 11:52 08/09/19 22:48 Benadryl - PO 25 mg HS PRN Administration ALLERGIES Divalproex Sodium 750 mg 08/09/19 22:00 08/10/19 21:48 Depakote *Er* - PO 750 mg HS BHARAT Administration Docusate Sodium 100 mg 08/12/19 10:00 Colace - PO DAILY BHARAT Ferrous Sulfate 325 mg 08/09/19 10:00 08/11/19 09:23 Feosol - PO 325 mg DAILY BHARAT Administration Fluoxetine HCl 40 mg 08/09/19 10:00 08/11/19 09:24 Prozac - PO 40 mg DAILY BHARAT Administration Furosemide 40 mg 08/09/19 10:00 08/11/19 09:23 Lasix - PO 40 mg DAILY BHARAT Administration Gabapentin 600 mg 08/09/19 10:00 03/10/20 09:23 Neurontin - PO 600 mg BID BHARAT Administration Insulin Aspart 1 vial 08/08/19 07:00 08/11/19 12:16 Novolog Vial Sliding Scale - SQ 2 units ACHS BHARAT Administration Protocol Levothyroxine Sodium 50 mcg 08/09/19 09:15 08/11/19 06:03 Synthroid - PO 50 mcg DAILY@0700 BHARAT Administration Meclizine HCl 25 mg 08/08/19 01:07 08/09/19 00:00 Antivert - PO 25 mg BID PRN Administration VERTIGO Metoprolol Succinate 25 mg 08/09/19 10:00 08/11/19 09:23 Toprol Xl - PO 25 mg BID BHARAT Administration Morphine Sulfate 2 mg 08/08/19 16:12 08/11/19 12:23 Morphine Sulfate IVPUSH 2 mg Q6H PRN Administration PAIN LEVEL 7 - 10 Ondansetron HCl 4 mg 08/08/19 01:07 08/08/19 01:30 Zofran Injection IVPUSH 4 mg Q6H PRN Administration NAUSEA Pantoprazole Sodium 40 mg 08/09/19 10:00 08/11/19 09:24 Protonix - PO 40 mg BID BHARAT Administration Quetiapine Fumarate 50 mg 08/09/19 22:00 08/10/19 21:48 Seroquel - PO 50 mg HS BHARAT Administration Senna/Docusate Sodium 2 tablet 08/09/19 22:00 08/10/19 21:47 Pericolace - PO 2 tablet HS BHARAT Administration ASSESSMENT/PLAN: 53y/o M hx morbid obesity, anxiety, schizoaffective d/o, DVT (on eliquis and plavix), HTN, HLD, DM, ?conversion disorder vs CVA/TIA in past, ?CAD/CO (x3), peptic ulcer dx, vertigo, ?COPD vs asthma, urinary incontinence, and migraines who presented from [facility] s/p unwitnessed mechanical fall associated with headache/low blood pressure and loss of consciousness. #Syncope - likely 2/2 orthostatic hypotension, poor oral intake, ? viral syndrome as pt presented with vomiting - Orthostatics positive on admission - BUN was slightly elevated upon admission with ? acute drop in Hgb from baseline. Since then, BUN has normalized and Hgb remains stable with no evidence of active bleed. In setting of hx of PUD, GI consulted upon admission. - FOBT ordered but not completed. Patient refusing rectal exam - Fe 12.5, Iron 41, TIBC 287, Fe sat 14 - Echo without significant abnormalities - Cont home meds: Ferrous Sulfate 325 QD - GI would like to complete EGD, however would like to hold Eliquis for 2 days and hold ideally hold plavix for 5 days prior to EGD - Cardiology cleared patient to hold AC, no contraindications to holding AC for EGD #Vertigo; - Acute on chronic - Cont Meclizine 25 BID - IV Zofran for nausea PRN #DM - BGM - ISS #HTN/HLD; - Toprol XL 25 BID - Lasix 40 - Atorvastatin 20 HS #Migraine hx/Schizoaffective/Anxiety - Cont home meds: Benztropine 1, Klonopin 0.5 PO BID, Gabapentin 600 BID, Clozaril 200 mg HS, Depakote 750, Fluoxetine 40, Seroquel 50 HS - Close outpatient follow up with psychiatry #Hx of DVT - Cont home meds: Eliquis 5 BID - Holding Plavix for possible EGD, cleared by Cardiology #Hypothyrodism - Cont home med: Synthroid 50 mcg #Asthma - Cont home med: Albuterol inhaler, Symbicort #Morbid Obesity - BMI 45 - Dietary/weight loss counseling. #Prophylaxis - Holding Plavix for EGD - Eliquis - to be held for 2 days prior to EGD - Protonix #FEN - PO hydration - monitor and replete lytes as needed - Diabetic diet #Disposition - cardiology cleared patient for EGD, GI to follow up Visit type - Emergency Visit Emergency Visit: Yes ED Registration Date: 08/07/19 Care time: The patient presented to the Emergency Department on the above date and was hospitalized for further evaluation of their emergent condition. - New Patient This patient is new to me today: No - Critical Care Critical Care patient: No ATTENDING PHYSICIAN STATEMENT I saw and evaluated the patient. I reviewed the resident's note and discussed the case with the resident. I agree with the resident's findings and plan as documented. SUBJECTIVE: OBJECTIVE: ASSESSMENT AND PLAN:
--- NOTE | 2019-08-11 17:06 | PN.GI ---
GI Progress Note Subjective: No acute events Lower abdominopelvic pain No overt bleeding reported + constipation - Objective Vital Signs: Vital Signs Temperature 98.4 F 08/11/19 09:28 Pulse Rate 94 H 08/11/19 09:28 Respiratory Rate 16 08/11/19 09:28 Blood Pressure 109/64 08/11/19 09:28 O2 Sat by Pulse Oximetry (%) 94 L 08/11/19 05:00 Constitutional: Calm Eyes: No: Sclera Icterus Cardiovascular: Yes: Regular Rate and Rhythm Respiratory: Yes: CTA Bilaterally Gastrointestinal Inspection: Yes: Scars (+ pelvic scar). No: Distention ...Auscultate: Yes: Normoactive Bowel Sounds ...Palpate: Yes: Soft ...Percussion: No: Tympanitic ...Rectal Exam: Yes: Other (Filling Machine Operator present: No external lesions, no masses, scant brown stool in rectal vault, guaiac negative) Neurological: Yes: Alert Labs: CBC, BMP 08/11/19 09:38 08/11/19 09:38 INR, PTT INR 1.04 (0.83-1.09) 08/07/19 20:00 Hepatic Panel Total Bilirubin 0.2 mg/dL (0.2-1) 08/08/19 05:50 AST 14 U/L (15-37) L 08/08/19 05:50 ALT 15 U/L (13-61) 08/08/19 05:50 Alkaline Phosphatase 89 U/L (45-117) 08/08/19 05:50 Albumin 2.9 g/dl (3.4-5.0) L 08/08/19 05:50 Problem List - Problems (1) Anemia Assessment/Plan: Microcytic anemia. Has never had colonoscopy/Endoscopy. Microcytic component suggestive of chronic component with element of iron deficiency Ideally should have EGD / colonoscopy. Given that Plavix was held yesterday, would likely plan for procedures (EGD and colon) Saturday while A/C and antiplatelet therapy is held. I discussed this with Ms. Villela. She is concerned that she expressed concerns that she would be unable to follow-up as an outpatient, particularly in [place] as she lives in [place]. Continue protonix Has diffuse abdominal pain complaints with abnormal urinary tract on admission CT scan. Consider urology evaluation Colace ineffective. Ongoing constipation. Added MiraLAX to regimen. Code(s): D64.9 - ANEMIA, UNSPECIFIED Qualifiers: Anemia type: unspecified type Qualified Code(s): D64.9 - Anemia, unspecified
[2019-08-11] MEDS: POLYETHYLENE GLYCOL 3350 119 GM BTL PO SCH (18:28)
[2019-08-11] MEDS ORDERED: PT OWN MED DRAWER 7, Y5N ONE (21:28)
[2019-08-11] MEDS: QUEtiapine FUMARATE 25 MG TABLET PO SCH (21:31)
[2019-08-11] MEDS: DIVALPROEX NA *ER* EXTEND REL 250 MG TABLET.SA PO SCH (21:32)
[2019-08-11] MEDS: cloZAPine 100 MG TABLET PO SCH (21:32)
[2019-08-11] MEDS: BENZTROPINE MESYLATE 1 MG TABLET PO SCH (21:32)
[2019-08-11] MEDS: SENNOSIDES/DOCUSATE COMBO (SENNA PLUS) TABLET (UD) PO SCH (21:32)
[2019-08-11] MEDS: ATORVASTATIN CA 20 MG TABLET (FP) PO SCH (21:32)
[2019-08-12] MEDS ORDERED: BACITRACIN 15 GM TUBE TOPICAL OINTMENT TP ONE (05:01)
[2019-08-12] MEDS: INSULIN SLIDING SCALE (NOVOLOG) 1 VIAL SQ SCH ×4 (06:47→22:50)
[2019-08-12] MEDS: MORPHINE SULFATE 2 MG/ML VIAL IVPUSH PRN ×3 (06:48→20:14)
[2019-08-12] MEDS: LEVOTHYROXINE NA 50 MCG TABLET (FP) PO SCH (06:49)
[2019-08-12] MEDS ORDERED: DOCUSATE SODIUM 100 MG CAPSULE (FP) PO SCH (10:00)
[2019-08-12] MEDS ORDERED: MAGNESIUM HYDROX 2400MG/30ML ORAL SUSPENSION 30 ML CUP PO ONE ×2 (10:41→16:30)
[2019-08-12] MEDS: diphenhydrAMINE HCL 25 MG CAPSULE (FP) PO PRN (10:52)
[2019-08-12] MEDS: FUROSEMIDE 40 MG TABLET (FP) PO SCH (10:52)
[2019-08-12] MEDS: FLUoxetine HCL 20 MG CAPSULE PO SCH (10:52)
[2019-08-12] MEDS: metoPROLOL SUCCINATE 25 MG TAB.SR.24H (FP) PO SCH ×2 (10:52→22:45)
[2019-08-12] MEDS: PANTOPRAZOLE 40 MG TABLET PO SCH ×2 (10:52→22:45)
[2019-08-12] MEDS: GABAPENTIN 300 MG CAPSULE PO SCH ×2 (10:52→22:45)
[2019-08-12] MEDS: APIXABAN 5 MG TABLET PO SCH ×2 (10:52→22:45)
[2019-08-12] MEDS: FERROUS SO4 325 MG TABLET (FP) PO SCH (10:52)
[2019-08-12] MEDS: clonazePAM 0.5 MG TABLET PO SCH ×2 (10:54→22:45)
[2019-08-12] MEDS: BUDESONIDE/FORMETEROL FUMARATE 80/4.5 mcg INHALER IH SCH ×2 (10:54→22:51)
--- NOTE | 2019-08-12 11:03 | PN ---
Progress Note, Physician History of Present Illness: No further near or true syncope or melena, Hgb stable. Plan for EGD/colonoscopy Saturday. - Current Medication List Current Medications: Active Medications Acetaminophen (Tylenol -) 650 mg PO Q4H PRN PRN Reason: HEADACHE Last Admin: 08/11/19 09:25 Dose: 650 mg Documented by: Albuterol Sulfate (Ventolin Hfa Inhaler -) 1 puff IH Q4H PRN PRN Reason: copd Apixaban (Eliquis -) 5 mg PO BID [facility] Last Admin: 08/12/19 10:52 Dose: 5 mg Documented by: Atorvastatin Calcium (Lipitor -) 20 mg PO HS [facility] Last Admin: 08/11/19 21:32 Dose: 20 mg Documented by: Benztropine Mesylate (Cogentin -) 1 mg PO HS [facility] Last Admin: 08/11/19 21:32 Dose: 1 mg Documented by: Budesonide/Formoterol Fumarate (Symbicort 80/4.5mcg -) 2 puff IH BID [facility] Last Admin: 08/12/19 10:54 Dose: 2 inh Documented by: Clonazepam (Klonopin -) 0.5 mg PO BID [facility] Last Admin: 08/12/19 10:54 Dose: 0.5 mg Documented by: Clopidogrel Bisulfate (Plavix -) 75 mg PO DAILY [facility] Last Admin: 08/11/19 09:24 Dose: Not Given Documented by: Clozapine (Clozaril -) 200 mg PO [facility] Last Admin: 08/11/19 21:32 Dose: 200 mg Documented by: Diphenhydramine HCl (Benadryl -) 25 mg PO HS PRN PRN Reason: ALLERGIES Last Admin: 08/12/19 10:52 Dose: 25 mg Documented by: Divalproex Sodium (Depakote *Er* -) 750 mg PO [facility] Last Admin: 08/11/19 21:32 Dose: 750 mg Documented by: Ferrous Sulfate (Feosol -) 325 mg PO DAILY [facility] Last Admin: 08/12/19 10:52 Dose: 325 mg Documented by: Fluoxetine HCl (Prozac -) 40 mg PO DAILY [facility] Last Admin: 08/12/19 10:52 Dose: 40 mg Documented by: Furosemide (Lasix -) 40 mg PO DAILY [facility] Last Admin: 08/12/19 10:52 Dose: 40 mg Documented by: Gabapentin (Neurontin -) 600 mg PO BID [facility] Last Admin: 08/12/19 10:52 Dose: 600 mg Documented by: Insulin Aspart (Novolog Vial Sliding Scale -) 1 vial SQ [facility]; Protocol Last Admin: 08/12/19 06:47 Dose: Not Given Documented by: Levothyroxine Sodium (Synthroid -) 50 mcg PO DAILY@0700 [facility] Last Admin: 08/12/19 06:49 Dose: 50 mcg Documented by: Magnesium Hydroxide (Milk Of Magnesia -) 30 ml PO ONCE ONE Stop: 08/12/19 10:42 Meclizine HCl (Antivert -) 25 mg PO BID PRN PRN Reason: VERTIGO Last Admin: 08/09/19 00:00 Dose: 25 mg Documented by: Metoprolol Succinate (Toprol Xl -) 25 mg PO BID [facility] Last Admin: 08/12/19 10:52 Dose: 25 mg Documented by: Morphine Sulfate (Morphine Sulfate) 2 mg IVPUSH Q6H PRN PRN Reason: PAIN LEVEL 7 - 10 Last Admin: 08/12/19 06:48 Dose: 2 mg Documented by: Ondansetron HCl (Zofran Injection) 4 mg IVPUSH Q6H PRN PRN Reason: NAUSEA Last Admin: 08/08/19 01:30 Dose: 4 mg Documented by: Pantoprazole Sodium (Protonix -) 40 mg PO BID [facility] Last Admin: 08/12/19 10:52 Dose: 40 mg Documented by: Polyethylene Glycol (Miralax (For Daily Use) -) 17 gm PO DAILY [facility] Last Admin: 08/11/19 18:28 Dose: 17 gm Documented by: Quetiapine Fumarate (Seroquel -) 50 mg PO [facility] Last Admin: 08/11/19 21:31 Dose: 50 mg Documented by: Senna/Docusate Sodium (Pericolace -) 2 tablet PO [facility] Last Admin: 08/11/19 21:32 Dose: 2 tablet Documented by: - Objective Vital Signs: Vital Signs Temperature 97.9 F 08/12/19 05:00 Pulse Rate 78 08/12/19 05:00 Respiratory Rate 20 08/12/19 05:00 Blood Pressure 120/75 08/12/19 05:00 O2 Sat by Pulse Oximetry (%) 95 08/12/19 01:15 Constitutional: Yes: No Distress, Calm Neck: Yes: Supple Cardiovascular: Yes: Regular Rate and Rhythm Respiratory: Yes: Regular, CTA Bilaterally Gastrointestinal: Yes: Soft, Abdomen, Obese, Hypoactive Bowel Sounds Edema: No Labs: CBC, BMP 08/11/19 09:38 08/11/19 09:38 INR, PTT INR 1.04 (0.83-1.09) 08/07/19 20:00 - ....Imaging EKG: Report Reviewed (Tele: NSR) Problem List - Problems (1) Anemia Code(s): D64.9 - ANEMIA, UNSPECIFIED Qualifiers: Iron deficiency anemia type: chronic blood loss (2) Syncope and collapse Code(s): R55 - SYNCOPE AND COLLAPSE (3) Cerebrovascular accident (CVA) Code(s): I63.9 - CEREBRAL INFARCTION, UNSPECIFIED Qualifiers: CVA mechanism: unspecified Qualified Code(s): I63.9 - Cerebral infarction, unspecified (4) Schizophrenia Code(s): F20.9 - SCHIZOPHRENIA, UNSPECIFIED Qualifiers: Schizophrenia type: unspecified Qualified Code(s): F20.9 - Schizophrenia, unspecified (5) CAD (coronary artery disease) Code(s): I25.10 - ATHSCL HEART DISEASE OF [place] CORONARY ARTERY W/O ANG PCTRS Qualifiers: Coronary Disease-Associated Artery/Lesion type: [place] artery [place] vs. transplanted heart: [place] heart Associated angina: without angina Qualified Code(s): I25.10 - Atherosclerotic heart disease of [place] coronary artery without angina pectoris (6) Diabetes type 2, controlled Code(s): E11.9 - TYPE 2 DIABETES MELLITUS WITHOUT COMPLICATIONS Qualifiers: 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 prison insulin use: without ferry terminal supervisor use 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 complication status: with unspecified complications Qualified Code(s): E11.8 - Type 2 diabetes mellitus with unspecified complications (7) HTN (hypertension) Code(s): I10 - ESSENTIAL (PRIMARY) HYPERTENSION Qualifiers: Hypertension type: essential hypertension Qualified Code(s): I10 - Essential (primary) hypertension (8) Hx of prison use of 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 Code(s): Z79.01 - PENITENTIARY (CURRENT) USE OF ANTICOAGULANTS (9) Hyperlipidemia Code(s): E78.5 - HYPERLIPIDEMIA, UNSPECIFIED Qualifiers: Hyperlipidemia type: pure hypercholesterolemia Qualified Code(s): E78.00 - Pure hypercholesterolemia, unspecified; E78.0 - Pure hypercholesterolemia (10) Morbid obesity Code(s): E66.01 - MORBID (SEVERE) OBESITY DUE TO EXCESS CALORIES (11) ARVIND treated with BiPAP Code(s): G47.33 - OBSTRUCTIVE SLEEP APNEA (ADULT) (PEDIATRIC) Assessment/Plan ASSESSMENT: 1. Pre-procedure cardiovascular evaluation prior to proceeding with EGD for evaluation of anemia/tarry stool in a patient with known history of coronary artery disease post reported myocardial infarction angina pectoris/Clinically st able 2. Syncope, vasovagal with nausea/emesis and orthostasis 3. Diastolic left ventricular dysfunction with clinical class 0 [place] [employer] classification of ventricular failure 4. History of cerebrovascular event/transient ischemic attack on Plavix therapy/Aspirin allergy 5. Hypertensive cardiovascular disease 6. 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 7. Hypercholesterolemia 8. Deep vein thrombosis on DOAC/Eliquis therapy 9. Microcytic anemia/tarry stool r/o GI source 10. Obstructive sleep apnea 11. History of schizophrenia, bipolar disorder 12. Obesity 13. Hypothyroidism PLAN: 1. Continue Toprol-XL 25 bid 2. Ideally patient should be on NGOZI inhibitor or angiotensin receptor chuy therapy unless they are absolutely contraindicated 3. Continue Lipitor 20 qhs 4. D/c Lasix 40 qd given euvolemia 5. There are no absolute contraindications in proceeding with the above planned EGD/colonoscopy Saturday considering that there is no clinical evidence of acute coronary syndrome and/or decompensated congestive heart failure and/or malignant ventricular arrhythmia, Plavix therapy has been withheld for 5-7 days prior to the above planned procedure/Eliquis therapy to be withheld for 24-48 hours prior to the above planned procedure- patient's cardiovascular medications are to be administered in the morning of the procedure with a sip of water 6. Protonix, bowel regimen
[2019-08-12] MEDS: POLYETHYLENE GLYCOL 3350 119 GM BTL PO SCH (11:19)
--- NOTE | 2019-08-12 13:12 | PN ---
Teaching Attending Note Name of Resident: Sterling Amador ATTENDING PHYSICIAN STATEMENT I saw and evaluated the patient. I reviewed the resident's note and discussed the case with the resident. I agree with the resident's findings and plan as documented. SUBJECTIVE: Feeling well. No visual disturbance/limb numbness or weakness. No nausea/vomiting/melena/hematochezia/hematemesis. OBJECTIVE: Afebrile, Hemodynamically stable. Last Vital Signs Temp Pulse Resp BP Pulse Ox 97.9 F 78 20 120/75 95 08/12/19 05:00 08/12/19 05:00 08/12/19 05:00 08/12/19 05:00 08/12/19 01:15 Heart - S1, S2, RRR Lungs - clear to auscultation Abdomen - High BMI. Soft. Mild generalized tenderness. Bowel Sounds normal. Extremities - bilateral calf tenderness. No edema. Laboratory Results - last 24 hr 08/11/19 08/11/19 08/11/19 15:16 17:04 21:30 POC Glucometer 204 185 230 08/12/19 08/12/19 06:17 11:52 POC Glucometer 158 229 Current Medications Generic Name Dose Route Start Last Admin Trade Name Freq PRN Reason Stop Dose Admin Acetaminophen 650 mg 08/09/19 14:24 08/11/19 09:25 Tylenol - PO 650 mg Q4H PRN Administration HEADACHE Albuterol Sulfate 1 puff 08/09/19 07:47 Ventolin Hfa Inhaler - IH Q4H PRN copd Apixaban 5 mg 08/09/19 10:00 08/12/19 10:52 Eliquis - PO 5 mg BID BHARAT Administration Atorvastatin Calcium 20 mg 08/09/19 22:00 08/11/19 21:32 Lipitor - PO 20 mg HS BHARAT Administration Benztropine Mesylate 1 mg 08/10/19 22:00 08/11/19 21:32 Cogentin - PO 1 mg HS BHARAT Administration Budesonide/Formoterol Fumarate 2 puff 08/09/19 11:30 08/12/19 10:54 Symbicort 80/4.5mcg - IH 2 inh BID BHARAT Administration Clonazepam 0.5 mg 08/08/19 22:00 08/12/19 10:54 Klonopin - PO 0.5 mg BID BHARAT Administration Clopidogrel Bisulfate 75 mg 08/09/19 10:00 08/11/19 09:24 Plavix - PO Not Given DAILY BHARAT Clozapine 200 mg 08/11/19 22:00 08/11/19 21:32 Clozaril - PO 200 mg HS BHARAT Administration Diphenhydramine HCl 25 mg 08/09/19 11:52 08/12/19 10:52 Benadryl - PO 25 mg HS PRN Administration ALLERGIES Divalproex Sodium 750 mg 08/09/19 22:00 08/11/19 21:32 Depakote *Er* - PO 750 mg HS BHARAT Administration Ferrous Sulfate 325 mg 08/09/19 10:00 08/12/19 10:52 Feosol - PO 325 mg DAILY BHARAT Administration Fluoxetine HCl 40 mg 08/09/19 10:00 08/12/19 10:52 Prozac - PO 40 mg DAILY BHARAT Administration Gabapentin 600 mg 08/09/19 10:00 08/12/19 10:52 Neurontin - PO 600 mg BID BHARAT Administration Insulin Aspart 1 vial 08/08/19 07:00 08/12/19 12:04 Novolog Vial Sliding Scale - SQ 4 units ACHS BHARAT Administration Protocol Levothyroxine Sodium 50 mcg 08/09/19 09:15 08/12/19 06:49 Synthroid - PO 50 mcg DAILY@0700 BHARAT Administration Meclizine HCl 25 mg 08/08/19 01:07 08/09/19 00:00 Antivert - PO 25 mg BID PRN Administration VERTIGO Metoprolol Succinate 25 mg 08/09/19 10:00 08/12/19 10:52 Toprol Xl - PO 25 mg BID BHARAT Administration Morphine Sulfate 2 mg 08/08/19 16:12 08/12/19 06:48 Morphine Sulfate IVPUSH 2 mg Q6H PRN Administration PAIN LEVEL 7 - 10 Ondansetron HCl 4 mg 08/08/19 01:07 08/08/19 01:30 Zofran Injection IVPUSH 4 mg Q6H PRN Administration NAUSEA Pantoprazole Sodium 40 mg 08/09/19 10:00 08/12/19 10:52 Protonix - PO 40 mg BID BHARAT Administration Polyethylene Glycol 17 gm 08/11/19 17:30 08/12/19 11:19 Miralax (For Daily Use) - PO Not Given DAILY [facility] Quetiapine Fumarate 50 mg 08/09/19 22:00 08/11/19 21:31 Seroquel - PO 50 mg HS [facility] Administration Senna/Docusate Sodium 2 tablet 08/09/19 22:00 08/11/19 21:32 Pericolace - PO 2 tablet HS [facility] Administration Home Medications Medication Instructions Recorded Albuterol Sulfate Inhaler - 1 inh PO Q4H PRN 06/15/17 [Ventolin HFA Inhaler -] Clonazepam 0.5 mg PO Q12H 06/15/17 Ferrous Sulfate 325 mg PO DAILY 06/15/17 Fluoxetine HCl 40 mg PO DAILY 06/15/17 Gabapentin 600 mg PO BID 06/15/17 Levothyroxine [Synthroid -] 100 mcg PO DAILY 06/15/17 Nitroglycerin Sublingual 0.4 mg SL PRN PRN 06/15/17 [Nitrostat -] Quetiapine Fumarate [Seroquel] 50 mg PO HS 06/15/17 Sennosides/Docusate Sodium [Senna 2 each PO HS 06/15/17 Laxative Tablet] Apixaban [Eliquis -] 5 mg PO BID tablet 06/23/17 Budesonide/Formeterol Fumarate 2 inh IH Q12H 06/23/17 [SYMBICORT 80/4.5mcg -] Docusate Sodium [Colace] 100 mg PO DAILY 06/23/17 Furosemide [Lasix -] 40 mg PO DAILY tablet 06/23/17 Metoprolol Succinate [Toprol Xl] 50 mg PO DAILY 06/23/17 Simvastatin [Zocor -] 40 mg PO HS 09/12/17 metFORMIN HCL [Metformin HCl] 500 mg PO BIDAC 09/12/17 Benztropine Mesylate [Cogentin -] 2 mg PO HS 09/23/17 Divalproex *ER* [Depakote *ER* -] 3 tab PO HS 09/23/17 Clozapine [Clozaril] 200 mg PO HS 08/08/19 Pantoprazole Sodium [Protonix -] 40 mg PO BID 08/08/19 Clopidogrel Bisulfate [Plavix] 75 mg PO DAILY 08/09/19 Atorvastatin Ca [Lipitor] 20 mg PO HS 08/10/19 Divalproex *ER* [Depakote *ER* -] 250 mg PO HS 08/10/19 Gabapentin 400 mg PO BID 08/10/19 Magnesium Oxide 400 mg PO DAILY 08/10/19 Melatonin 3 mg PO DAILY 08/10/19 Prazosin HCl [Minipress] 2 mg PO DAILY 08/10/19 Sitagliptin Phosphate [Januvia] 50 mg PO DAILY 08/10/19 Sucralfate [Carafate -] 1 gm PO QID 08/10/19 ASSESSMENT/PLAN: 53 year old female with history of morbid obesity, anxiety, schizophrenia, recurrent DVT (on eliquis), HTN, HLD, DM 2, ? conversion disorder, CAD s/p [place] (x3) on Plavix (allergic to ASA), PUD, asthma, chronic anemia, histor of BPPV, C OPD, urinary incontinence, and migraines, presents from [facility] with Syncope/nausea/vomiting/dark stool. 1. Syncope secondary to Orthostasis due to dehydration sec to nausea/vomiting, now resolved. Echo - normal US Duplex LEs negative. Symptoms resolved. Seen and cleared by Cardiology. 2. Iron Deficiency Anemia Reported Melena - no further episodes. Seen by GI - recommend EGD/[place] Cleared by Cardiology for EGD s/p holding Plavix for 5-7 days and Eliquis for 24-48 hours prior to GI studies. Will discuss with GI arranging for study to be done as out-patient. FOBT pending. 3. CAD s/p [place] x 3. Plavix held for EGD. Continue BB and Statin 4. Hx DVT - Eliquis to be held 24-48 hours before EGD. US Duplex LEs negative. 5. BPPV - Continue Meclizine. May benefit from vestibular rehab as out-patient. 6. DM 2, uncontrolled. A1C 7.4. Resume Januvia/Metformin on discharge. 7. HTN - Continue Toprol XL. 8. Hypothyroidism - continue Levothyroxine. 9. Schizophrenia/Bipolar Disorder - Stable. Continue Seroquel, Clozapine, Cogentin, Clonazepam, Fluoxetine, Depakote. 10. Chronic Diastolic CHF - Stable. Lasix discontinued by Cardiology. 11. COPD - stale. On Symbicort, Albuterol PRN. GI Px - Protonix BID DVT Px - on Eliquis (to be held 24-48 hours prior to EGD)
--- NOTE | 2019-08-12 14:47 | PN ---
Physical Exam: SUBJECTIVE: Patient seen and examined. Patient complains of some back pain. She states she has a history of herniated discs and feels the bed is uncomfortable. Patient agreeable to come back for outpatient EGD once it was explained to her that she access to transportation via medicaid. complains of abd pain as well. Denies chest pain, SOB, fever, chills. States she still has not had a bowel movement. OBJECTIVE: Vital Signs Period Temp Pulse Resp BP Sys/Schultz Pulse Ox Last 24 Hr 97.8 F-98.5 F 78-92 20-20 106-122/63-76 95-97 GENERAL: awake, no acute distress HEAD: Normal with no signs of trauma. EYES: EOMI ENT: MMM NECK: Trachea midline, full range of motion, supple. LUNGS: Breath sounds equal, clear to auscultation bilaterally, no wheezes, no crackles, no accessory muscle use. HEART: Regular rate and rhythm, S1, S2 without murmur, rub or gallop. ABDOMEN: Soft, mild diffuse tenderness to palpation over abd, nondistended, normoactive bowel sounds, no guarding, no rebound EXTREMITIES: 2+ pulses, warm, well-perfused, no edema. NEUROLOGICAL: no facial droop noted, normal speech, gait not observed PSYCH: Normal mood, normal affect. SKIN: Warm, dry, normal turgor Laboratory Results - last 24 hr 08/11/19 08/11/19 08/11/19 15:16 17:04 21:30 POC Glucometer 204 185 230 08/12/19 08/12/19 06:17 11:52 POC Glucometer 158 229 Active Medications Generic Name Dose Route Start Last Admin Trade Name Freq PRN Reason Stop Dose Admin Acetaminophen 650 mg 08/09/19 14:24 08/11/19 09:25 Tylenol - PO 650 mg Q4H PRN Administration HEADACHE Albuterol Sulfate 1 puff 08/09/19 07:47 Ventolin Hfa Inhaler - IH Q4H PRN copd Apixaban 5 mg 08/09/19 10:00 08/12/19 10:52 Eliquis - PO 5 mg BID BHARAT Administration Atorvastatin Calcium 20 mg 08/09/19 22:00 08/11/19 21:32 Lipitor - PO 20 mg HS BHARAT Administration Benztropine Mesylate 1 mg 08/10/19 22:00 08/11/19 21:32 Cogentin - PO 1 mg HS BHARAT Administration Budesonide/Formoterol Fumarate 2 puff 08/09/19 11:30 08/12/19 10:54 Symbicort 80/4.5mcg - IH 2 inh BID BHARAT Administration Clonazepam 0.5 mg 08/08/19 22:00 08/12/19 10:54 Klonopin - PO 0.5 mg BID BHARAT Administration Clopidogrel Bisulfate 75 mg 08/09/19 10:00 08/11/19 09:24 Plavix - PO Not Given DAILY BHARAT Clozapine 200 mg 08/11/19 22:00 08/11/19 21:32 Clozaril - PO 200 mg HS BHARAT Administration Diphenhydramine HCl 25 mg 08/09/19 11:52 08/12/19 10:52 Benadryl - PO 25 mg HS PRN Administration ALLERGIES Divalproex Sodium 750 mg 08/09/19 22:00 08/11/19 21:32 Depakote *Er* - PO 750 mg HS BHARAT Administration Ferrous Sulfate 325 mg 08/09/19 10:00 08/12/19 10:52 Feosol - PO 325 mg DAILY BHARAT Administration Fluoxetine HCl 40 mg 08/09/19 10:00 08/12/19 10:52 Prozac - PO 40 mg DAILY BHARAT Administration Gabapentin 600 mg 08/09/19 10:00 08/12/19 10:52 Neurontin - PO 600 mg BID BHARAT Administration Insulin Aspart 1 vial 08/08/19 07:00 08/12/19 12:04 Novolog Vial Sliding Scale - SQ 4 units ACHS BHARAT Administration Protocol Levothyroxine Sodium 50 mcg 08/09/19 09:15 08/12/19 06:49 Synthroid - PO 50 mcg DAILY@0700 BHARAT Administration Meclizine HCl 25 mg 08/08/19 01:07 08/09/19 00:00 Antivert - PO 25 mg BID PRN Administration VERTIGO Metoprolol Succinate 25 mg 08/09/19 10:00 08/12/19 10:52 Toprol Xl - PO 25 mg BID BHARAT Administration Morphine Sulfate 2 mg 08/08/19 16:12 08/12/19 13:04 Morphine Sulfate IVPUSH 2 mg Q6H PRN Administration PAIN LEVEL 7 - 10 Ondansetron HCl 4 mg 08/08/19 01:07 08/08/19 01:30 Zofran Injection IVPUSH 4 mg Q6H PRN Administration NAUSEA Pantoprazole Sodium 40 mg 08/09/19 10:00 08/12/19 10:52 Protonix - PO 40 mg BID BHARAT Administration Polyethylene Glycol 17 gm 08/11/19 17:30 08/12/19 11:19 Miralax (For Daily Use) - PO Not Given DAILY BHARAT Quetiapine Fumarate 50 mg 08/09/19 22:00 08/11/19 21:31 Seroquel - PO 50 mg HS BHARAT Administration Senna/Docusate Sodium 2 tablet 08/09/19 22:00 08/11/19 21:32 Pericolace - PO 2 tablet HS BHARAT Administration ASSESSMENT/PLAN: 53y/o M hx morbid obesity, anxiety, schizoaffective d/o, DVT (on eliquis and plavix), HTN, HLD, DM, ?conversion disorder vs CVA/TIA in past, ?CAD/[place] (x3), peptic ulcer dx, vertigo, ?COPD vs asthma, urinary incontinence, and migraines who presented from [facility] s/p unwitnessed mechanical fall associated with headache/low blood pressure and loss of consciousness. #Syncope - likely 2/2 orthostatic hypotension, poor oral intake, ? viral syndrome as pt presented with vomiting - Orthostatics positive on admission - BUN was slightly elevated upon admission with ? acute drop in Hgb from baseline. Since then, BUN has normalized and Hgb remains stable with no evidence of active bleed. In setting of hx of PUD, GI consulted upon admission. - FOBT ordered but not completed. Patient refusing rectal exam - Fe 12.5, Iron 41, TIBC 287, Fe sat 14 - Echo without significant abnormalities - Cont home meds: Ferrous Sulfate 325 QD - GI would like to complete EGD and colonoscopy on Saturday - Cardiology cleared patient to hold AC, Plavix on hold. Eliquis to be held starting Saturday at midnight - Milk of Magnesia given x1 - Lower extremity doppler negative for DVT #Vertigo; - Acute on chronic - Cont Meclizine 25 BID - IV Zofran for nausea PRN #DM - BGM - ISS #HTN/HLD; - Toprol XL 25 BID - Lasix 40 - Atorvastatin 20 HS #Migraine hx/Schizoaffective/Anxiety - Cont home meds: Benztropine 1, Klonopin 0.5 PO BID, Gabapentin 600 BID, Clozaril 200 mg HS, Depakote 750, Fluoxetine 40, Seroquel 50 HS - Close outpatient follow up with psychiatry #Hx of DVT - Cont home meds: Eliquis 5 BID. To be held starting Saturday at 0000 - Holding Plavix for possible EGD, cleared by Cardiology #Hypothyrodism - Cont home med: Synthroid 50 mcg #Asthma - Cont home med: Albuterol inhaler, Symbicort #Morbid Obesity - BMI 45 - Dietary/weight loss counseling. #Prophylaxis - Holding Plavix for EGD - Eliquis - to be held starting Saturday at 0000 - Protonix #FEN - PO hydration - monitor and replete lytes as needed - Diabetic diet #Disposition - cardiology cleared patient for EGD, GI planning for EGD and colonoscopy on Saturday Visit type - Emergency Visit Emergency Visit: Yes ED Registration Date: 08/07/19 Care time: The patient presented to the Emergency Department on the above date and was hospitalized for further evaluation of their emergent condition. - New Patient This patient is new to me today: No - Critical Care Critical Care patient: No ATTENDING PHYSICIAN STATEMENT I saw and evaluated the patient. I reviewed the resident's note and discussed the case with the resident. I agree with the resident's findings and plan as documented. SUBJECTIVE: OBJECTIVE: ASSESSMENT AND PLAN:
[2019-08-12] MEDS: ONDANSETRON 4 MG/2 ML VIAL IVPUSH PRN (16:42)
--- NOTE | 2019-08-12 18:01 | PN.GI ---
GI Progress Note Subjective: Pt seen/examined at bedside, sitting up eating lunch, denies abdominal pain, nausea/vomiting, no bm yet - Objective Vital Signs: Vital Signs Temperature 97.8 F 08/12/19 13:55 Pulse Rate 92 H 08/12/19 13:55 Respiratory Rate 08/12/19 13:55 Blood Pressure 122/76 08/12/19 13:55 O2 Sat by Pulse Oximetry (%) 95 08/12/19 01:15 Constitutional: Well Nourished, No Distress, Calm Cardiovascular: Yes: WNL, Regular Rate and Rhythm Respiratory: Yes: WNL, Regular, CTA Bilaterally ...Palpate: Yes: Other (Abd soft, nt, nd) Labs: CBC, BMP 08/11/19 09:38 08/11/19 09:38 INR, PTT INR 1.04 (0.83-1.09) 08/07/19 20:00 Problem List - Problems (1) Anemia Assessment/Plan: 53yo female with iron deficiency anemia, no prior reported EGD or colonoscopy. No overt bleeding. -Plan for EGD and colonoscopy tentatively on Saturday as previously noted -Plavix on hold and Eliquis to be held for 2 days prior to procedure (cardiology note reviewed) -Continue PPI -Continue bowel regimen, could increase to miralax bid if needed Discussed above with nursing staff Code(s): D64.9 - ANEMIA, UNSPECIFIED Qualifiers: Iron deficiency anemia type: chronic blood loss
[2019-08-12] MEDS ORDERED: PT OWN MED DRAWER 7, Y5N ONE (22:36)
[2019-08-12] MEDS: ATORVASTATIN CA 20 MG TABLET (FP) PO SCH (22:45)
[2019-08-12] MEDS: SENNOSIDES/DOCUSATE COMBO (SENNA PLUS) TABLET (UD) PO SCH (22:45)
[2019-08-12] MEDS: QUEtiapine FUMARATE 25 MG TABLET PO SCH (22:45)
[2019-08-12] MEDS: BENZTROPINE MESYLATE 1 MG TABLET PO SCH (22:46)
[2019-08-12] MEDS: DIVALPROEX NA *ER* EXTEND REL 250 MG TABLET.SA PO SCH (22:46)
[2019-08-12] MEDS: cloZAPine 100 MG TABLET PO SCH (22:46)
[2019-08-13] MEDS: MORPHINE SULFATE 2 MG/ML VIAL IVPUSH PRN ×3 (05:53→18:19)
[2019-08-13] MEDS: INSULIN SLIDING SCALE (NOVOLOG) 1 VIAL SQ SCH ×4 (06:01→22:26)
[2019-08-13] MEDS: LEVOTHYROXINE NA 50 MCG TABLET (FP) PO SCH (06:02)
[2019-08-13 08:52] LABS: HEMATOCRIT 34.5 % (32.4-45.2); HEMOGLOBIN 11.6 GM/dL (10.7-15.3); MCH 26.9 pg (25.7-33.7); MCHC 33.5 g/dl (32.0-36.0); MEAN CELL VOLUME 80.4 fl (80-96); PLATELET COUNT 210 K/MM3 (134-434); RDW 18.5 % (11.6-15.6); WHITE BLOOD COUNT 9.4 K/mm3 (4.0-10.0)
--- NOTE | 2019-08-13 09:07 | PN ---
Progress Note, Physician History of Present Illness: No further near or true syncope or melena, Hgb stable. Plan for EGD/colonoscopy Saturday. - Current Medication List Current Medications: Active Medications Acetaminophen (Tylenol -) 650 mg PO Q4H PRN PRN Reason: HEADACHE Last Admin: 08/11/19 09:25 Dose: 650 mg Documented by: Albuterol Sulfate (Ventolin Hfa Inhaler -) 1 puff IH Q4H PRN PRN Reason: copd Apixaban (Eliquis -) 5 mg PO BID [facility] Last Admin: 08/12/19 22:45 Dose: 5 mg Documented by: Atorvastatin Calcium (Lipitor -) 20 mg PO HS [facility] Last Admin: 08/12/19 22:45 Dose: 20 mg Documented by: Benztropine Mesylate (Cogentin -) 1 mg PO [facility] Last Admin: 08/12/19 22:46 Dose: 1 mg Documented by: Budesonide/Formoterol Fumarate (Symbicort 80/4.5mcg -) 2 puff IH BID [facility] Last Admin: 08/12/19 22:51 Dose: Not Given Documented by: Clonazepam (Klonopin -) 0.5 mg PO BID [facility] Last Admin: 08/12/19 22:45 Dose: 0.5 mg Documented by: Clopidogrel Bisulfate (Plavix -) 75 mg PO DAILY [facility] Last Admin: 08/11/19 09:24 Dose: Not Given Documented by: Clozapine (Clozaril -) 200 mg PO [facility] Last Admin: 08/12/19 22:46 Dose: 200 mg Documented by: Diphenhydramine HCl (Benadryl -) 25 mg PO HS PRN PRN Reason: ALLERGIES Last Admin: 08/12/19 10:52 Dose: 25 mg Documented by: Divalproex Sodium (Depakote *Er* -) 750 mg PO [facility] Last Admin: 08/12/19 22:46 Dose: 750 mg Documented by: Ferrous Sulfate (Feosol -) 325 mg PO DAILY [facility] Last Admin: 08/12/19 10:52 Dose: 325 mg Documented by: Fluoxetine HCl (Prozac -) 40 mg PO DAILY [facility] Last Admin: 08/12/19 10:52 Dose: 40 mg Documented by: Gabapentin (Neurontin -) 600 mg PO BID [facility] Last Admin: 08/12/19 22:45 Dose: 600 mg Documented by: Insulin Aspart (Novolog Vial Sliding Scale -) 1 vial SQ [facility]; Protocol Last Admin: 08/13/19 06:01 Dose: 2 units Documented by: Levothyroxine Sodium (Synthroid -) 50 mcg PO DAILY@0700 [facility] Last Admin: 08/13/19 06:02 Dose: 50 mcg Documented by: Meclizine HCl (Antivert -) 25 mg PO BID PRN PRN Reason: VERTIGO Last Admin: 08/09/19 00:00 Dose: 25 mg Documented by: Metoprolol Succinate (Toprol Xl -) 25 mg PO BID [facility] Last Admin: 08/12/19 22:45 Dose: 25 mg Documented by: Morphine Sulfate (Morphine Sulfate) 2 mg IVPUSH Q6H PRN PRN Reason: PAIN LEVEL 7 - 10 Last Admin: 08/13/19 05:53 Dose: 2 mg Documented by: Ondansetron HCl (Zofran Injection) 4 mg IVPUSH Q6H PRN PRN Reason: NAUSEA Last Admin: 08/12/19 16:42 Dose: 4 mg Documented by: Pantoprazole Sodium (Protonix -) 40 mg PO BID [facility] Last Admin: 08/12/19 22:45 Dose: 40 mg Documented by: Polyethylene Glycol (Miralax (For Daily Use) -) 17 gm PO DAILY [facility] Last Admin: 08/12/19 11:19 Dose: Not Given Documented by: Quetiapine Fumarate (Seroquel -) 50 mg PO [facility] Last Admin: 08/12/19 22:45 Dose: 50 mg Documented by: Senna/Docusate Sodium (Pericolace -) 2 tablet PO [facility] Last Admin: 08/12/19 22:45 Dose: 2 tablet Documented by: - Objective Vital Signs: Vital Signs Temperature 97.7 F 08/13/19 08:14 Pulse Rate 83 08/13/19 08:14 Respiratory Rate 20 08/13/19 08:14 Blood Pressure 126/97 08/13/19 08:14 O2 Sat by Pulse Oximetry (%) 96 08/12/19 21:00 Constitutional: Yes: No Distress, Calm Neck: Yes: Supple Cardiovascular: Yes: Regular Rate and Rhythm Respiratory: Yes: Regular, CTA Bilaterally Gastrointestinal: Yes: Normal Bowel Sounds, Soft Edema: No Labs: CBC, BMP 08/13/19 08:30 08/11/19 09:38 INR, PTT INR 1.04 (0.83-1.09) 08/07/19 20:00 Problem List - Problems (1) Anemia Code(s): D64.9 - ANEMIA, UNSPECIFIED Qualifiers: Iron deficiency anemia type: chronic blood loss (2) Syncope and collapse Code(s): R55 - SYNCOPE AND COLLAPSE (3) Cerebrovascular accident (CVA) Code(s): I63.9 - CEREBRAL INFARCTION, UNSPECIFIED Qualifiers: CVA mechanism: unspecified Qualified Code(s): I63.9 - Cerebral infarction, unspecified (4) Schizophrenia Code(s): F20.9 - SCHIZOPHRENIA, UNSPECIFIED Qualifiers: Schizophrenia type: unspecified Qualified Code(s): F20.9 - Schizophrenia, unspecified (5) CAD (coronary artery disease) Code(s): I25.10 - ATHSCL HEART DISEASE OF [place] CORONARY ARTERY W/O ANG PCTRS Qualifiers: Coronary Disease-Associated Artery/Lesion type: [place] artery [place] vs. transplanted heart: [place] heart Associated angina: without angina Qualified Code(s): I25.10 - Atherosclerotic heart disease of [place] coronary artery without angina pectoris (6) Diabetes type 2, controlled Code(s): E11.9 - TYPE 2 DIABETES MELLITUS WITHOUT COMPLICATIONS Qualifiers: 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 usp insulin use: without vermin exterminator use 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 complication status: with unspecified complications Qualified Code(s): E11.8 - Type 2 diabetes mellitus with unspecified complications (7) HTN (hypertension) Code(s): I10 - ESSENTIAL (PRIMARY) HYPERTENSION Qualifiers: Hypertension type: essential hypertension Qualified Code(s): I10 - Essential (primary) hypertension (8) Hx of usp use of 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 Code(s): Z79.01 - DETENTION (CURRENT) USE OF ANTICOAGULANTS (9) Hyperlipidemia Code(s): E78.5 - HYPERLIPIDEMIA, UNSPECIFIED Qualifiers: Hyperlipidemia type: pure hypercholesterolemia Qualified Code(s): E78.00 - Pure hypercholesterolemia, unspecified; E78.0 - Pure hypercholesterolemia (10) Morbid obesity Code(s): E66.01 - MORBID (SEVERE) OBESITY DUE TO EXCESS CALORIES (11) ARVIND treated with BiPAP Code(s): G47.33 - OBSTRUCTIVE SLEEP APNEA (ADULT) (PEDIATRIC) Assessment/Plan ASSESSMENT: 1. Pre-procedure cardiovascular evaluation prior to proceeding with EGD for evaluation of anemia/tarry stool in a patient with known history of coronary artery disease post reported myocardial infarction angina pectoris/Clinically stable 2. Syncope, vasovagal with nausea/emesis and orthostasis 3. Diastolic left ventricular dysfunction with clinical class 0 [place] [employer] classification of ventricular failure 4. History of cerebrovascular event/transient ischemic attack on Plavix therapy/Aspirin allergy 5. Hypertensive cardiovascular disease 6. 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 7. Hypercholesterolemia 8. Deep vein thrombosis on DOAC/Eliquis therapy 9. Microcytic anemia/tarry stool r/o GI source 10. Obstructive sleep apnea 11. History of schizophrenia, bipolar disorder 12. Obesity 13. Hypothyroidism PLAN: 1. Continue Toprol-XL 25 bid 2. Ideally patient should be on NGOZI inhibitor or angiotensin receptor chuy therapy unless they are absolutely contraindicated 3. Continue Lipitor 20 qhs 4. D/c Lasix 40 qd given euvolemia 5. There are no absolute contraindications in proceeding with the above planned EGD/colonoscopy Saturday considering that there is no clinical evidence of acute coronary syndrome and/or decompensated congestive heart failure and/or malignant ventricular arrhythmia, Plavix therapy has been withheld for 5-7 days prior to the above planned procedure/Eliquis therapy to be withheld for 24-48 hours prior to the above planned procedure- patient's cardiovascular medications are to be administered in the morning of the procedure with a sip of water 6. Protonix, bowel regimen
--- NOTE | 2019-08-13 10:00 | PN ---
Teaching Attending Note Name of Resident: Sterling Amador ATTENDING PHYSICIAN STATEMENT I saw and evaluated the patient. I reviewed the resident's note and discussed the case with the resident. I agree with the resident's findings and plan as documented. SUBJECTIVE: Feeling well. No visual disturbance/limb numbness or weakness. No nausea/vomiting/melena/hematochezia/hematemesis. OBJECTIVE: Afebrile, Hemodynamically stable. Last Vital Signs Temp Pulse Resp BP Pulse Ox 97.7 F 83 20 126/97 96 08/13/19 08:14 08/13/19 08:14 08/13/19 08:14 08/13/19 08:14 08/12/19 21:00 Heart - S1, S2, RRR Lungs - clear to auscultation Abdomen - High BMI. Soft. Mild generalized tenderness. Bowel Sounds normal. Extremities - bilateral calf tenderness. No edema. Laboratory Results - last 24 hr 08/12/19 08/12/19 08/13/19 11:52 16:50 05:55 WBC RBC Hgb Hct MCV MCH MCHC RDW Plt Count MPV POC Glucometer 229 190 188 08/13/19 08:30 WBC 9.4 RBC 4.30 Hgb 11.6 Hct 34.5 MCV 80.4 MCH 26.9 MCHC 33.5 RDW 18.5 H Plt Count 210 MPV 10.0 POC Glucometer Current Medications Generic Name Dose Route Start Last Admin Trade Name Freq PRN Reason Stop Dose Admin Acetaminophen 650 mg 08/09/19 14:24 08/11/19 09:25 Tylenol - PO 650 mg Q4H PRN Administration HEADACHE Albuterol Sulfate 1 puff 08/09/19 07:47 Ventolin Hfa Inhaler - IH Q4H PRN copd Apixaban 5 mg 08/09/19 10:00 08/12/19 22:45 Eliquis - PO 5 mg BID BHARAT Administration Atorvastatin Calcium 20 mg 08/09/19 22:00 08/12/19 22:45 Lipitor - PO 20 mg HS BHARAT Administration Benztropine Mesylate 1 mg 08/10/19 22:00 08/12/19 22:46 Cogentin - PO 1 mg HS BHARAT Administration Budesonide/Formoterol Fumarate 2 puff 08/09/19 11:30 08/12/19 22:51 Symbicort 80/4.5mcg - IH Not Given BID BHARAT Clonazepam 0.5 mg 08/08/19 22:00 08/12/19 22:45 Klonopin - PO 0.5 mg BID BHARAT Administration Clopidogrel Bisulfate 75 mg 08/09/19 10:00 08/11/19 09:24 Plavix - PO Not Given DAILY BHARAT Clozapine 200 mg 08/11/19 22:00 08/12/19 22:46 Clozaril - PO 200 mg HS BHARAT Administration Diphenhydramine HCl 25 mg 08/09/19 11:52 08/12/19 10:52 Benadryl - PO 25 mg HS PRN Administration ALLERGIES Divalproex Sodium 750 mg 08/09/19 22:00 08/12/19 22:46 Depakote *Er* - PO 750 mg HS BHARAT Administration Ferrous Sulfate 325 mg 08/09/19 10:00 08/12/19 10:52 Feosol - PO 325 mg DAILY BHARAT Administration Fluoxetine HCl 40 mg 08/09/19 10:00 08/12/19 10:52 Prozac - PO 40 mg DAILY BHARAT Administration Gabapentin 600 mg 08/09/19 10:00 08/12/19 22:45 Neurontin - PO 600 mg BID BHARAT Administration Insulin Aspart 1 vial 08/08/19 07:00 08/13/19 06:01 Novolog Vial Sliding Scale - SQ 2 units ACHS BHARAT Administration Protocol Levothyroxine Sodium 50 mcg 08/09/19 09:15 08/13/19 06:02 Synthroid - PO 50 mcg DAILY@0700 BHARAT Administration Meclizine HCl 25 mg 08/08/19 01:07 08/09/19 00:00 Antivert - PO 25 mg BID PRN Administration VERTIGO Metoprolol Succinate 25 mg 08/09/19 10:00 08/12/19 22:45 Toprol Xl - PO 25 mg BID BHARAT Administration Morphine Sulfate 2 mg 08/12/19 18:10 08/13/19 05:53 Morphine Sulfate IVPUSH 2 mg Q6H PRN Administration PAIN LEVEL 7 - 10 Ondansetron HCl 4 mg 08/08/19 01:07 08/12/19 16:42 Zofran Injection IVPUSH 4 mg Q6H PRN Administration NAUSEA Pantoprazole Sodium 40 mg 08/09/19 10:00 08/12/19 22:45 Protonix - PO 40 mg BID BHARAT Administration Polyethylene Glycol 17 gm 08/11/19 17:30 08/12/19 11:19 Miralax (For Daily Use) - PO Not Given DAILY [facility] Quetiapine Fumarate 50 mg 08/09/19 22:00 08/12/19 22:45 Seroquel - PO 50 mg HS [facility] Administration Senna/Docusate Sodium 2 tablet 08/09/19 22:00 08/12/19 22:45 Pericolace - PO 2 tablet HS BHARAT Administration Home Medications Medication Instructions Recorded Albuterol Sulfate Inhaler - 1 inh PO Q4H PRN 06/15/17 [Ventolin HFA Inhaler -] Clonazepam 0.5 mg PO Q12H 06/15/17 Ferrous Sulfate 325 mg PO DAILY 06/15/17 Fluoxetine HCl 40 mg PO DAILY 06/15/17 Gabapentin 600 mg PO BID 06/15/17 Levothyroxine [Synthroid -] 100 mcg PO DAILY 06/15/17 Nitroglycerin Sublingual 0.4 mg SL PRN PRN 06/15/17 [Nitrostat -] Quetiapine Fumarate [Seroquel] 50 mg PO HS 06/15/17 Sennosides/Docusate Sodium [Senna 2 each PO HS 06/15/17 Laxative Tablet] Apixaban [Eliquis -] 5 mg PO BID tablet 06/23/17 Budesonide/Formeterol Fumarate 2 inh IH Q12H 06/23/17 [SYMBICORT 80/4.5mcg -] Docusate Sodium [Colace] 100 mg PO DAILY 06/23/17 Furosemide [Lasix -] 40 mg PO DAILY tablet 06/23/17 Metoprolol Succinate [Toprol Xl] 50 mg PO DAILY 06/23/17 Simvastatin [Zocor -] 40 mg PO HS 09/12/17 metFORMIN HCL [Metformin HCl] 500 mg PO BIDAC 09/12/17 Benztropine Mesylate [Cogentin -] 2 mg PO HS 09/23/17 Divalproex *ER* [Depakote *ER* -] 3 tab PO HS 09/23/17 Clozapine [Clozaril] 200 mg PO HS 08/08/19 Pantoprazole Sodium [Protonix -] 40 mg PO BID 08/08/19 Clopidogrel Bisulfate [Plavix] 75 mg PO DAILY 08/09/19 Atorvastatin Ca [Lipitor] 20 mg PO HS 08/10/19 Divalproex *ER* [Depakote *ER* -] 250 mg PO HS 08/10/19 Gabapentin 400 mg PO BID 08/10/19 Magnesium Oxide 400 mg PO DAILY 08/10/19 Melatonin 3 mg PO DAILY 08/10/19 Prazosin HCl [Minipress] 2 mg PO DAILY 08/10/19 Sitagliptin Phosphate [Januvia] 50 mg PO DAILY 08/10/19 Sucralfate [Carafate -] 1 gm PO QID 08/10/19 ASSESSMENT/PLAN: 53 year old female with history of morbid obesity, anxiety, schizophrenia, recurrent DVT (on eliquis), HTN, HLD, DM 2, ? conversion disorder, CAD s/p [place] (x3) on Plavix (allergic to ASA), PUD, asthma, chronic anemia, histor of BPPV, COPD, urinary incontinence, and migraines, presents from [facility] with Syncope/nausea/vomiting/dark stool. 1. Syncope secondary to Orthostasis due to dehydration sec to nausea/vomiting, possible viral gastroenteritis, now resolved. Echo - normal US Duplex LEs negative. Symptoms resolved. Seen and cleared by Cardiology. 2. Iron Deficiency Anemia, appears chronic Reported Melena - no further episodes. Seen by GI - recommend EGD/[place] Cleared by Cardiology for EGD s/p holding Plavix for 5-7 days and Eliquis for 24-48 hours prior to GI studies. Hemodynamicaly Stable. H/H stable. Enquired re: arranging GI studies as out-patient, still awaiting response. Discharge to [place] pending GI arrangement for out-patient EGD/Colonoscopy. Patient has medicaid and has access to transport to and from the hospital for appointments and procedures. No medical or social necessity to remain in-patient until next week for EGD/[place]. 3. CAD s/p [place] x 3. Plavix held for EGD. Continue BB and Statin 4. Hx DVT - Eliquis to be held 24-48 hours before EGD. US Duplex LEs negative. 5. BPPV - Continue Meclizine. May benefit from vestibular rehab as out-patient. 6. DM 2, uncontrolled. A1C 7.4. Resume Januvia/Metformin on discharge. 7. HTN - Continue Toprol XL. 8. Hypothyroidism - continue Levothyroxine. 9. Schizophrenia/Bipolar Disorder - Stable. Continue Seroquel, Clozapine, Cogentin, Clonazepam, Fluoxetine, Depakote. 10. Chronic Diastolic CHF - Stable. Lasix discontinued by Cardiology. 11. COPD - stable. On Symbicort, Albuterol PRN. GI Px - Protonix BID DVT Px - on Eliquis (to be held 24-48 hours prior to EGD)
[2019-08-13] MEDS: clonazePAM 0.5 MG TABLET PO SCH ×2 (10:22→22:32)
[2019-08-13] MEDS: FLUoxetine HCL 20 MG CAPSULE PO SCH (10:22)
[2019-08-13] MEDS: metoPROLOL SUCCINATE 25 MG TAB.SR.24H (FP) PO SCH ×2 (10:22→22:32)
[2019-08-13] MEDS: POLYETHYLENE GLYCOL 3350 119 GM BTL PO SCH ×2 (10:22→22:34)
[2019-08-13] MEDS: FERROUS SO4 325 MG TABLET (FP) PO SCH (10:22)
[2019-08-13] MEDS: APIXABAN 5 MG TABLET PO SCH ×2 (10:23→22:30)
[2019-08-13] MEDS: GABAPENTIN 300 MG CAPSULE PO SCH ×2 (10:23→22:32)
[2019-08-13] MEDS: BUDESONIDE/FORMETEROL FUMARATE 80/4.5 mcg INHALER IH SCH ×2 (10:23→22:33)
[2019-08-13] MEDS: PANTOPRAZOLE 40 MG TABLET PO SCH ×2 (10:23→22:32)
--- NOTE | 2019-08-13 11:21 | PN ---
Physical Exam: SUBJECTIVE: Patient seen and examined. No acute events overnight. Patient gustavo has not had a bowel movement and is refusing enemas. OBJECTIVE: Vital Signs Period Temp Pulse Resp BP Sys/Schultz Pulse Ox Last 24 Hr 97.7 F-99.3 F 83-100 18-20 121-126/55-97 96 GENERAL: awake, no acute distress, fully oriented HEAD: Normal with no signs of trauma. EYES: EOMI, no scleral icterus ENT: MMM NECK: Trachea midline, full range of motion, supple. LUNGS: Breath sounds equal, clear to auscultation bilaterally, no wheezes, no crackles, no accessory muscle use. HEART: Regular rate and rhythm, S1, S2 without murmur, rub or gallop. ABDOMEN: Soft, mild diffuse tenderness to palpation over abd, nondistended, normoactive bowel sounds, no guarding, no rebound EXTREMITIES: 2+ pulses, warm, well-perfused, no edema. NEUROLOGICAL: no facial droop noted, normal speech, gait not observed. 5/5 strength upper and lower extremities PSYCH: Normal mood, normal affect. SKIN: Warm, dry, normal turgor Laboratory Results - last 24 hr 08/12/19 08/12/19 08/13/19 11:52 16:50 05:55 WBC RBC Hgb Hct MCV MCH MCHC RDW Plt Count MPV POC Glucometer 229 190 188 08/13/19 08:30 WBC 9.4 RBC 4.30 Hgb 11.6 Hct 34.5 MCV 80.4 MCH 26.9 MCHC 33.5 RDW 18.5 H Plt Count 210 MPV 10.0 POC Glucometer Active Medications Generic Name Dose Route Start Last Admin Trade Name Freq PRN Reason Stop Dose Admin Acetaminophen 650 mg 08/09/19 14:24 08/11/19 09:25 Tylenol - PO 650 mg Q4H PRN Administration HEADACHE Albuterol Sulfate 1 puff 08/09/19 07:47 Ventolin Hfa Inhaler - IH Q4H PRN copd Apixaban 5 mg 08/09/19 10:00 08/13/19 10:23 Eliquis - PO 5 mg BID BHARAT Administration Atorvastatin Calcium 20 mg 08/09/19 22:00 08/12/19 22:45 Lipitor - PO 20 mg HS BHARAT Administration Benztropine Mesylate 1 mg 08/10/19 22:00 08/12/19 22:46 Cogentin - PO 1 mg HS BHARAT Administration Budesonide/Formoterol Fumarate 2 puff 08/09/19 11:30 08/13/19 10:23 Symbicort 80/4.5mcg - IH 2 inh BID BHARAT Administration Clonazepam 0.5 mg 08/08/19 22:00 08/13/19 10:22 Klonopin - PO 0.5 mg BID BHARAT Administration Clopidogrel Bisulfate 75 mg 08/09/19 10:00 08/11/19 09:24 Plavix - PO Not Given DAILY BHARAT Clozapine 200 mg 08/11/19 22:00 08/12/19 22:46 Clozaril - PO 200 mg HS BHARAT Administration Diphenhydramine HCl 25 mg 08/09/19 11:52 08/12/19 10:52 Benadryl - PO 25 mg HS PRN Administration ALLERGIES Divalproex Sodium 750 mg 08/09/19 22:00 08/12/19 22:46 Depakote *Er* - PO 750 mg HS BHARAT Administration Ferrous Sulfate 325 mg 08/09/19 10:00 08/13/19 10:22 Feosol - PO 325 mg DAILY BHARAT Administration Fluoxetine HCl 40 mg 08/09/19 10:00 08/13/19 10:22 Prozac - PO 40 mg DAILY BHARAT Administration Gabapentin 600 mg 08/09/19 10:00 08/13/19 10:23 Neurontin - PO 600 mg BID BHARAT Administration Insulin Aspart 1 vial 08/08/19 07:00 08/13/19 06:01 Novolog Vial Sliding Scale - SQ 2 units ACHS BHARAT Administration Protocol Levothyroxine Sodium 50 mcg 08/09/19 09:15 08/13/19 06:02 Synthroid - PO 50 mcg DAILY@0700 BHARAT Administration Meclizine HCl 25 mg 08/08/19 01:07 08/09/19 00:00 Antivert - PO 25 mg BID PRN Administration VERTIGO Metoprolol Succinate 25 mg 08/09/19 10:00 08/13/19 10:22 Toprol Xl - PO 25 mg BID BHARAT Administration Morphine Sulfate 2 mg 08/12/19 18:10 08/13/19 05:53 Morphine Sulfate IVPUSH 2 mg Q6H PRN Administration PAIN LEVEL 7 - 10 Ondansetron HCl 4 mg 08/08/19 01:07 08/12/19 16:42 Zofran Injection IVPUSH 4 mg Q6H PRN Administration NAUSEA Pantoprazole Sodium 40 mg 08/09/19 10:00 08/13/19 10:23 Protonix - PO 40 mg BID BHARAT Administration Polyethylene Glycol 17 gm 08/11/19 17:30 08/13/19 10:22 Miralax (For Daily Use) - PO 17 gm DAILY BHARAT Administration Quetiapine Fumarate 50 mg 08/09/19 22:00 08/12/19 22:45 Seroquel - PO 50 mg HS BHARAT Administration Senna/Docusate Sodium 2 tablet 08/09/19 22:00 08/12/19 22:45 Pericolace - PO 2 tablet HS BHARAT Administration ASSESSMENT/PLAN: 53y/o M hx morbid obesity, anxiety, schizoaffective d/o, DVT (on eliquis and plavix), HTN, HLD, DM, ?conversion disorder vs CVA/TIA in past, ?CAD/[place] (x3), peptic ulcer dx, vertigo, ?COPD vs asthma, urinary incontinence, and migraines who presented from [facility] s/p unwitnessed mechanical fall associated with headache/low blood pressure and loss of consciousness. #Syncope - likely 2/2 orthostatic hypotension, poor oral intake, ? viral syndrome as pt presented with vomiting - Orthostatics positive on admission - BUN was slightly elevated upon admission with ? acute drop in Hgb from baseline. Since then, BUN has normalized and Hgb remains stable with no evidence of active bleed. In setting of hx of PUD, GI consulted upon admission. - FOBT ordered but not completed. Patient refusing rectal exam - Fe 12.5, Iron 41, TIBC 287, Fe sat 14 - Echo without significant abnormalities - Cont home meds: Ferrous Sulfate 325 QD - GI would like to complete EGD and colonoscopy on Saturday - Cardiology cleared patient to hold AC, Plavix on hold. Eliquis to be held starting Saturday at midnight - Milk of Magnesia given x1 - Lower extremity doppler negative for DVT - Miralax BID, Senna HS #Vertigo - Acute on chronic - Cont Meclizine 25 BID - IV Zofran for nausea PRN #DM - BGM - ISS #HTN/HLD; - Toprol XL 25 BID - Lasix 40 - Atorvastatin 20 HS #Migraine hx/Schizoaffective/Anxiety - Cont home meds: Benztropine 1, Klonopin 0.5 PO BID, Gabapentin 600 BID, C lozaril 200 mg HS, Depakote 750, Fluoxetine 40, Seroquel 50 HS - Close outpatient follow up with psychiatry #Hx of DVT - Cont home meds: Eliquis 5 BID. To be held starting Saturday at 0000 - Holding Plavix for possible EGD, cleared by Cardiology #Hypothyrodism - Cont home med: Synthroid 50 mcg #Asthma - Cont home med: Albuterol inhaler, Symbicort #Morbid Obesity - BMI 45 - Dietary/weight loss counseling. #Prophylaxis - Holding Plavix for EGD - Eliquis - to be held starting Saturday at 0000 - Protonix #FEN - PO hydration - monitor and replete lytes as needed - Diabetic diet #Disposition - cardiology cleared patient for EGD, GI planning for EGD and colonoscopy on Saturday Visit type - Emergency Visit Emergency Visit: Yes ED Registration Date: 08/12/19 Care time: The patient presented to the Emergency Department on the above date and was hospitalized for further evaluation of their emergent condition. - New Patient This patient is new to me today: No - Critical Care Critical Care patient: No ATTENDING PHYSICIAN STATEMENT I saw and evaluated the patient. I reviewed the resident's note and discussed the case with the resident. I agree with the resident's findings and plan as documented. SUBJECTIVE: OBJECTIVE: ASSESSMENT AND PLAN:
[2019-08-13] MEDS ORDERED: PT OWN MED DRAWER 7, Y5N ONE (20:40)
[2019-08-13] MEDS ORDERED: ONDANSETRON 4 MG/2 ML VIAL IVPUSH PRN (21:15)
[2019-08-13] MEDS ORDERED: MORPHINE SULFATE 2 MG/ML VIAL IVPUSH PRN (21:15)
[2019-08-13] MEDS ORDERED: ALBUTEROL SO4 HFA INHALER IH PRN (21:15)
[2019-08-13] MEDS ORDERED: diphenhydrAMINE HCL 25 MG CAPSULE (FP) PO PRN (21:15)
[2019-08-13] MEDS ORDERED: MECLIZINE HCL 25 MG TABLET (FP) PO PRN (21:15)
[2019-08-13] MEDS ORDERED: POLYETHYLENE GLYCOL 3350 119 GM BTL PO SCH (22:00)
[2019-08-13] MEDS ORDERED: INSULIN (NOVOLOG) ASPART 100 UNITS/ML 10ML VIAL ONE (22:22)
[2019-08-13] MEDS: QUEtiapine FUMARATE 25 MG TABLET PO SCH (22:31)
[2019-08-13] MEDS: cloZAPine 100 MG TABLET PO SCH (22:31)
[2019-08-13] MEDS: BENZTROPINE MESYLATE 1 MG TABLET PO SCH (22:31)
[2019-08-13] MEDS: DIVALPROEX NA *ER* EXTEND REL 250 MG TABLET.SA PO SCH (22:32)
[2019-08-13] MEDS: ATORVASTATIN CA 20 MG TABLET (FP) PO SCH (22:32)
[2019-08-13] MEDS: SENNOSIDES/DOCUSATE COMBO (SENNA PLUS) TABLET (UD) PO SCH (23:27)
[2019-08-14] MEDS: INSULIN SLIDING SCALE (NOVOLOG) 1 VIAL SQ SCH ×4 (06:37→22:54)
[2019-08-14] MEDS: LEVOTHYROXINE NA 50 MCG TABLET (FP) PO SCH (06:37)
[2019-08-14] MEDS ORDERED: CLOPIDOGREL BISULFATE 75 MG TABLET (FP) PO SCH (10:00)
[2019-08-14] MEDS ORDERED: INSULIN (NOVOLOG) ASPART 100 UNITS/ML 10ML VIAL ONE (10:53)
--- NOTE | 2019-08-14 11:04 | PN ---
Progress Note (short form) - Note Progress Note: No cardiac issues. Plan for EGD/colonoscopy Saturday. Vital Signs Temperature 98.4 F 08/14/19 02:00 Pulse Rate 9 L 08/14/19 02:00 Respiratory Rate 18 08/14/19 02:00 Blood Pressure 100/75 08/14/19 02:00 O2 Sat by Pulse Oximetry (%) 95 08/13/19 21:00 CBC, BMP 08/13/19 08:30 08/11/19 09:38 Active Medications Acetaminophen (Tylenol -) 650 mg PO Q4H PRN PRN Reason: HEADACHE Albuterol Sulfate (Ventolin Hfa Inhaler -) 1 puff IH Q4H PRN PRN Reason: copd Apixaban (Eliquis -) 5 mg PO BID [facility] Last Admin: 08/13/19 22:30 Dose: 5 mg Documented by: Atorvastatin Calcium (Lipitor -) 20 mg PO HS [facility] Last Admin: 08/13/19 22:32 Dose: 20 mg Documented by: Benztropine Mesylate (Cogentin -) 1 mg PO [facility] Last Admin: 08/13/19 22:31 Dose: 1 mg Documented by: Bisacodyl (Dulcolax -) 20 mg PO ONCE ONE Stop: 08/16/19 13:01 Budesonide/Formoterol Fumarate (Symbicort 80/4.5mcg -) 2 puff IH BID [facility] Last Admin: 08/13/19 22:33 Dose: 2 puff Documented by: Clonazepam (Klonopin -) 0.5 mg PO BID [facility] Last Admin: 08/13/19 22:32 Dose: 0.5 mg Documented by: Clopidogrel Bisulfate (Plavix -) 75 mg PO DAILY [facility] Clozapine (Clozaril -) 200 mg PO [facility] Last Admin: 08/13/19 22:31 Dose: 200 mg Documented by: Diphenhydramine HCl (Benadryl -) 25 mg PO HS PRN PRN Reason: ALLERGIES Divalproex Sodium (Depakote *Er* -) 750 mg PO [facility] Last Admin: 08/13/19 22:32 Dose: 750 mg Documented by: Ferrous Sulfate (Feosol -) 325 mg PO DAILY [facility] Fluoxetine HCl (Prozac -) 40 mg PO DAILY [facility] Gabapentin (Neurontin -) 600 mg PO BID [facility] Last Admin: 08/13/19 22:32 Dose: 600 mg Documented by: Insulin Aspart (Novolog Vial Sliding Scale -) 1 vial SQ ACHS [facility]; Protocol Last Admin: 08/14/19 06:37 Dose: 4 units Documented by: Levothyroxine Sodium (Synthroid -) 50 mcg PO DAILY@0700 [facility] Last Admin: 08/14/19 06:37 Dose: 50 mcg Documented by: Meclizine HCl (Antivert -) 25 mg PO BID PRN PRN Reason: VERTIGO Metoprolol Succinate (Toprol Xl -) 25 mg PO BID [facility] Last Admin: 08/13/19 22:32 Dose: 25 mg Documented by: Morphine Sulfate (Morphine Sulfate) 2 mg IVPUSH Q6H PRN PRN Reason: PAIN LEVEL 7 - 10 Last Admin: 08/14/19 00:23 Dose: 2 mg Documented by: Ondansetron HCl (Zofran Injection) 4 mg IVPUSH Q6H PRN PRN Reason: NAUSEA Pantoprazole Sodium (Protonix -) 40 mg PO BID [facility] Last Admin: 08/13/19 22:32 Dose: 40 mg Documented by: Polyethylene Glycol (Miralax (For Daily Use) -) 17 gm PO BID [facility] Last Admin: 08/13/19 22:34 Dose: Not Given Documented by: Polyethylene Glycol/Electrolytes (Golytely Solution -) 4,000 ml PO ONCE ONE Stop: 08/16/19 14:01 Quetiapine Fumarate (Seroquel -) 50 mg PO [facility] Last Admin: 08/13/19 22:31 Dose: 50 mg Documented by: Senna/Docusate Sodium (Pericolace -) 2 tablet PO [facility] Last Admin: 08/13/19 23:27 Dose: 2 tablet Documented by: - Problem List - Problems (1) Anemia Code(s): D64.9 - ANEMIA, UNSPECIFIED Qualifiers: Iron deficiency anemia type: chronic blood loss (2) Syncope and collapse Code(s): R55 - SYNCOPE AND COLLAPSE (3) Cerebrovascular accident (CVA) Code(s): I63.9 - CEREBRAL INFARCTION, UNSPECIFIED Qualifiers: CVA mechanism: unspecified Qualified Code(s): I63.9 - Cerebral infarction, unspecified (4) Schizophrenia Code(s): F20.9 - SCHIZOPHRENIA, UNSPECIFIED Qualifiers: Schizophrenia type: unspecified Qualified Code(s): F20.9 - Schizophrenia, unspecified (5) CAD (coronary artery disease) Code(s): I25.10 - ATHSCL HEART DISEASE OF [place] CORONARY ARTERY W/O ANG PCTRS Qualifiers: Coronary Disease-Associated Artery/Lesion type: nikolai artery [place] vs. transplanted heart: nikolai heart Associated angina: without angina Qualified Code(s): I25.10 - Atherosclerotic heart disease of nikolai coronary artery without angina pectoris (6) Diabetes type 2, controlled Code(s): E11.9 - TYPE 2 DIABETES MELLITUS WITHOUT COMPLICATIONS Qualifiers: 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 manager terminal insulin use: without manager terminal use 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 complication status: with unspecified complications Qualified Code(s): E11.8 - Type 2 diabetes mellitus with unspecified complications (7) HTN (hypertension) Code(s): I10 - ESSENTIAL (PRIMARY) HYPERTENSION Qualifiers: Hypertension type: essential hypertension Qualified Code(s): I10 - Essential (primary) hypertension (8) Hx of group home use of 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 Code(s): 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 Pre-procedure cardiovascular evaluation prior to proceeding with EGD for evaluation of anemia/tarry stool in a patient with known history of coronary artery disease post reported myocardial infarction angina pectoris/Clinically stable 2. Syncope, vasovagal with nausea/emesis and orthostasis 3. Diastolic left ventricular dysfunction with clinical class 0 [place] [employer] classification of ventricular failure 4. History of cerebrovascular event/transient ischemic attack on Plavix therapy /Aspirin allergy 5. Hypertensive cardiovascular disease 6. 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 7. Hypercholesterolemia 8. Deep vein thrombosis on DOAC/Eliquis therapy 9. Microcytic anemia/tarry stool r/o GI source 10. Obstructive sleep apnea 11. History of schizophrenia, bipolar disorder 12. Obesity 13. Hypothyroidism PLAN: Same: 1. Continue Toprol-XL 25 bid 2. Ideally patient should be on NGOZI inhibitor or angiotensin receptor chuy therapy unless they are absolutely contraindicated 3. Continue Lipitor 20 qhs 4. D/c Lasix 40 qd given euvolemia 5. There are no absolute contraindications in proceeding with the above planned EGD/colonoscopy Saturday considering that there is no clinical evidence of acute coronary syndrome and/or decompensated congestive heart failure and/or malignant ventricular arrhythmia, Plavix therapy has been withheld for 5-7 days prior to the above planned procedure/Eliquis therapy to be withheld for 24-48 hours prior to the above planned procedure- patient's cardiovascular medications are to be administered in the morning of the procedure with a sip of water 6. Protonix, bowel regimen
[2019-08-14] MEDS: clonazePAM 0.5 MG TABLET PO SCH ×2 (11:09→22:52)
[2019-08-14] MEDS: metoPROLOL SUCCINATE 25 MG TAB.SR.24H (FP) PO SCH ×2 (11:10→22:52)
[2019-08-14] MEDS: PANTOPRAZOLE 40 MG TABLET PO SCH ×2 (11:10→22:52)
[2019-08-14] MEDS: GABAPENTIN 300 MG CAPSULE PO SCH ×2 (11:10→22:51)
[2019-08-14] MEDS: APIXABAN 5 MG TABLET PO SCH ×2 (11:11→22:52)
[2019-08-14] MEDS: FLUoxetine HCL 20 MG CAPSULE PO SCH (11:11)
[2019-08-14] MEDS: FERROUS SO4 325 MG TABLET (FP) PO SCH (11:11)
[2019-08-14] MEDS: BUDESONIDE/FORMETEROL FUMARATE 80/4.5 mcg INHALER IH SCH ×2 (11:16→22:57)
[2019-08-14] MEDS: POLYETHYLENE GLYCOL 3350 119 GM BTL PO SCH ×2 (11:22→22:57)
--- NOTE | 2019-08-14 13:51 | PN ---
Teaching Attending Note Name of Resident: Sterling Amador ATTENDING PHYSICIAN STATEMENT I saw and evaluated the patient. I reviewed the resident's note and discussed the case with the resident. I agree with the resident's findings and plan as documented. SUBJECTIVE: Feeling okay. Reports abdominal discomfort. Eating well. No nausea/vomiting/melena/hematochezia/hematemesis. OBJECTIVE: Afebrile, Hemodynamically stable. Drowsy but rousable s/p morphine Last Vital Signs Temp Pulse Resp BP Pulse Ox 97.6 F 84 18 124/77 95 08/14/19 10:00 08/14/19 10:00 08/14/19 10:00 08/14/19 10:00 08/13/19 21:00 Heart - S1, S2, RRR Lungs - clear to auscultation Abdomen - High BMI. Soft. Mild generalized tenderness. Bowel Sounds normal. Extremities - bilateral calf tenderness. No edema. Laboratory Results - last 24 hr 08/13/19 08/13/19 08/14/19 16:41 22:14 06:04 POC Glucometer 287 228 205 08/14/19 11:28 POC Glucometer 151 Current Medications Generic Name Dose Route Start Last Admin Trade Name Freq PRN Reason Stop Dose Admin Acetaminophen 650 mg 08/13/19 21:15 Tylenol - PO Q4H PRN HEADACHE Albuterol Sulfate 1 puff 08/13/19 21:15 Ventolin Hfa Inhaler - IH Q4H PRN copd Apixaban 5 mg 08/13/19 22:00 08/14/19 11:11 Eliquis - PO 5 mg BID BHARAT Administration Atorvastatin Calcium 20 mg 08/13/19 22:00 08/13/19 22:32 Lipitor - PO 20 mg HS BHARAT Administration Benztropine Mesylate 1 mg 08/13/19 22:00 08/13/19 22:31 Cogentin - PO 1 mg HS BHARAT Administration Bisacodyl 20 mg 08/16/19 13:00 Dulcolax - PO 08/16/19 13:01 ONCE ONE Budesonide/Formoterol Fumarate 2 puff 08/13/19 22:00 08/14/19 11:16 Symbicort 80/4.5mcg - IH Not Given BID BHARAT Clonazepam 0.5 mg 08/13/19 22:00 08/14/19 11:09 Klonopin - PO 0.5 mg BID BHARAT Administration Clopidogrel Bisulfate 75 mg 08/14/19 10:00 Plavix - PO DAILY BHARAT Clozapine 200 mg 08/13/19 22:00 08/13/19 22:31 Clozaril - PO 200 mg HS BHARAT Administration Diphenhydramine HCl 25 mg 08/13/19 21:15 Benadryl - PO HS PRN ALLERGIES Divalproex Sodium 750 mg 08/13/19 22:00 08/13/19 22:32 Depakote *Er* - PO 750 mg HS BHARAT Administration Ferrous Sulfate 325 mg 08/14/19 10:00 08/14/19 11:11 Feosol - PO 325 mg DAILY BHARAT Administration Fluoxetine HCl 40 mg 08/14/19 10:00 08/14/19 11:11 Prozac - PO 40 mg DAILY BHARAT Administration Gabapentin 600 mg 08/13/19 22:00 08/14/19 11:10 Neurontin - PO 600 mg BID BHARAT Administration Insulin Aspart 1 vial 08/13/19 22:00 08/14/19 12:15 Novolog Vial Sliding Scale - SQ 2 units ACHS BHARAT Administration Protocol Levothyroxine Sodium 50 mcg 08/14/19 07:00 08/14/19 06:37 Synthroid - PO 50 mcg DAILY@0700 BHARAT Administration Meclizine HCl 25 mg 08/13/19 21:15 Antivert - PO BID PRN VERTIGO Metoprolol Succinate 25 mg 08/13/19 22:00 08/14/19 11:10 Toprol Xl - PO 25 mg BID BHARAT Administration Ondansetron HCl 4 mg 08/13/19 21:15 Zofran Injection IVPUSH Q6H PRN NAUSEA Pantoprazole Sodium 40 mg 08/13/19 22:00 08/14/19 11:10 Protonix - PO 40 mg BID BHARAT Administration Polyethylene Glycol 17 gm 08/13/19 22:00 08/14/19 11:22 Miralax (For Daily Use) - PO 17 gm BID BHARAT Administration Polyethylene Glycol/Electrolytes 4,000 ml 08/16/19 14:00 Golytely Solution - PO 08/16/19 14:01 ONCE ONE Quetiapine Fumarate 50 mg 08/13/19 22:00 08/13/19 22:31 Seroquel - PO 50 mg HS BHARAT Administration Senna/Docusate Sodium 2 tablet 08/13/19 22:00 08/13/19 23:27 Pericolace - PO 2 tablet HS [facility] Administration Home Medications Medication Instructions Recorded Albuterol Sulfate Inhaler - 1 inh PO Q4H PRN 06/15/17 [Ventolin HFA Inhaler -] Clonazepam 0.5 mg PO Q12H 06/15/17 Ferrous Sulfate 325 mg PO DAILY 06/15/17 Fluoxetine HCl 40 mg PO DAILY 06/15/17 Gabapentin 600 mg PO BID 06/15/17 Levothyroxine [Synthroid -] 100 mcg PO DAILY 06/15/17 Nitroglycerin Sublingual 0.4 mg SL PRN PRN 06/15/17 [Nitrostat -] Quetiapine Fumarate [Seroquel] 50 mg PO HS 06/15/17 Sennosides/Docusate Sodium [Senna 2 each PO HS 06/15/17 Laxative Tablet] Apixaban [Eliquis -] 5 mg PO BID tablet 06/23/17 Budesonide/Formeterol Fumarate 2 inh IH Q12H 06/23/17 [SYMBICORT 80/4.5mcg -] Docusate Sodium [Colace] 100 mg PO DAILY 06/23/17 Furosemide [Lasix -] 40 mg PO DAILY tablet 06/23/17 Metoprolol Succinate [Toprol Xl] 50 mg PO DAILY 06/23/17 Simvastatin [Zocor -] 40 mg PO HS 09/12/17 metFORMIN HCL [Metformin HCl] 500 mg PO BIDAC 09/12/17 Benztropine Mesylate [Cogentin -] 2 mg PO HS 09/23/17 Divalproex *ER* [Depakote *ER* -] 3 tab PO HS 09/23/17 Clozapine [Clozaril] 200 mg PO HS 08/08/19 Pantoprazole Sodium [Protonix -] 40 mg PO BID 08/08/19 Clopidogrel Bisulfate [Plavix] 75 mg PO DAILY 08/09/19 Atorvastatin Ca [Lipitor] 20 mg PO HS 08/10/19 Divalproex *ER* [Depakote *ER* -] 250 mg PO HS 08/10/19 Gabapentin 400 mg PO BID 08/10/19 Magnesium Oxide 400 mg PO DAILY 08/10/19 Melatonin 3 mg PO DAILY 08/10/19 Prazosin HCl [Minipress] 2 mg PO DAILY 08/10/19 Sitagliptin Phosphate [Januvia] 50 mg PO DAILY 08/10/19 Sucralfate [Carafate -] 1 gm PO QID 08/10/19 ASSESSMENT/PLAN: 53 year old female with history of morbid obesity, anxiety, schizophrenia, recurrent DVT (on eliquis), HTN, HLD, DM 2, ? conversion disorder, CAD s/p TX (x3) on Plavix (allergic to ASA), PUD, asthma, chronic anemia, history of BPPV, COPD, urinary incontinence, and migraines, presents from [facility] with Syncope/nausea/vomiting/dark stool. 1. Syncope secondary to Orthostasis due to dehydration sec to nausea/vomiting, possible viral gastroenteritis, now resolved. Echo - normal US Duplex LEs negative. Symptoms resolved. Seen and cleared by Cardiology. 2. Iron Deficiency Anemia, appears chronic Reported Melena - no further episodes. Seen by GI - recommend EGD/[place] Cleared by Cardiology for EGD s/p holding Plavix for 5-7 days and Eliquis for 24-48 hours prior to GI studies. Hemodynamicaly Stable. H/H stable. Requested GI studies as out-patient, however GI apparently prefers to keep in-patient for 7 days off Plavix for an in-patient study. No date/schedule yet given by GI for patient's EGD/[place] - if planned GI studies on Wednesday 08/16, Eliquis will need to be held from tomorrow 08/14 3. CAD s/p TX x 3. Plavix held for EGD. Continue BB and Statin 4. Hx DVT - Eliquis to be held 24-48 hours before EGD. US Duplex LEs negative. 5. BPPV - Continue Meclizine. May benefit from vestibular rehab as out-patient. 6. DM 2, uncontrolled. A1C 7.4. Resume Januvia/Metformin on discharge. 7. HTN - Continue Toprol XL. 8. Hypothyroidism - continue Levothyroxine. 9. Schizophrenia/Bipolar Disorder - Stable. Continue Seroquel, Clozapine, Cogentin, Clonazepam, Fluoxetine, Depakote. 10. Chronic Diastolic CHF - Stable. Lasix discontinued by Cardiology. 11. COPD - stable. On Symbicort, Albuterol PRN. GI Px - Protonix BID DVT Px - on Eliquis (to be held 24-48 hours prior to EGD)
--- NOTE | 2019-08-14 16:06 | PN ---
Physical Exam: SUBJECTIVE: Patient seen and examined. Patient not cooperative with interview, states she is sleepy. OBJECTIVE: Vital Signs Period Temp Pulse Resp BP Sys/Schultz Pulse Ox Last 24 Hr 97.6 F-98.4 F 9-98 18-20 100-134/65-77 94-95 GENERAL: awake, no acute distress, fully oriented HEAD: Normal with no signs of trauma. EYES: EOMI, no scleral icterus ENT: MMM NECK: Trachea midline, full range of motion, supple. LUNGS: Breath sounds equal, clear to auscultation bilaterally, no wheezes, no crackles, no accessory muscle use. HEART: Regular rate and rhythm, S1, S2 without murmur, rub or gallop. ABDOMEN: Soft, nontender nondistended, normoactive bowel sounds, no guarding, no rebound EXTREMITIES: 2+ pulses, warm, well-perfused, no edema. NEUROLOGICAL: no facial droop noted, normal speech, gait not observed PSYCH: Normal mood, normal affect. SKIN: Warm, dry, normal turgor Laboratory Results - last 24 hr 08/13/19 08/13/19 08/14/19 16:41 22:14 06:04 POC Glucometer 287 228 205 08/14/19 11:28 POC Glucometer 151 Active Medications Generic Name Dose Route Start Last Admin Trade Name Freq PRN Reason Stop Dose Admin Acetaminophen 650 mg 08/13/19 21:15 Tylenol - PO Q4H PRN HEADACHE Albuterol Sulfate 1 puff 08/13/19 21:15 Ventolin Hfa Inhaler - IH Q4H PRN copd Apixaban 5 mg 08/13/19 22:00 08/14/19 11:11 Eliquis - PO 5 mg BID BHARAT Administration Atorvastatin Calcium 20 mg 08/13/19 22:00 08/13/19 22:32 Lipitor - PO 20 mg HS BHARAT Administration Benztropine Mesylate 1 mg 08/13/19 22:00 08/13/19 22:31 Cogentin - PO 1 mg HS BHARAT Administration Bisacodyl 20 mg 08/16/19 13:00 Dulcolax - PO 08/16/19 13:01 ONCE ONE Budesonide/Formoterol Fumarate 2 puff 08/13/19 22:00 08/14/19 11:16 Symbicort 80/4.5mcg - IH Not Given BID BHARAT Clonazepam 0.5 mg 08/13/19 22:00 08/14/19 11:09 Klonopin - PO 0.5 mg BID BHARAT Administration Clopidogrel Bisulfate 75 mg 08/14/19 10:00 Plavix - PO DAILY BHARAT Clozapine 200 mg 08/13/19 22:00 08/13/19 22:31 Clozaril - PO 200 mg HS BHARAT Administration Diphenhydramine HCl 25 mg 08/13/19 21:15 Benadryl - PO HS PRN ALLERGIES Divalproex Sodium 750 mg 08/13/19 22:00 08/13/19 22:32 Depakote *Er* - PO 750 mg HS BHARAT Administration Ferrous Sulfate 325 mg 08/14/19 10:00 08/14/19 11:11 Feosol - PO 325 mg DAILY BHARAT Administration Fluoxetine HCl 40 mg 08/14/19 10:00 08/14/19 11:11 Prozac - PO 40 mg DAILY BHARAT Administration Gabapentin 600 mg 08/13/19 22:00 08/14/19 11:10 Neurontin - PO 600 mg BID BHARAT Administration Insulin Aspart 1 vial 08/13/19 22:00 08/14/19 12:15 Novolog Vial Sliding Scale - SQ 2 units ACHS BHARAT Administration Protocol Levothyroxine Sodium 50 mcg 08/14/19 07:00 08/14/19 06:37 Synthroid - PO 50 mcg DAILY@0700 BHARAT Administration Meclizine HCl 25 mg 08/13/19 21:15 Antivert - PO BID PRN VERTIGO Metoprolol Succinate 25 mg 08/13/19 22:00 08/14/19 11:10 Toprol Xl - PO 25 mg BID BHARAT Administration Ondansetron HCl 4 mg 08/13/19 21:15 Zofran Injection IVPUSH Q6H PRN NAUSEA Pantoprazole Sodium 40 mg 08/13/19 22:00 08/14/19 11:10 Protonix - PO 40 mg BID BHARAT Administration Polyethylene Glycol 17 gm 08/13/19 22:00 08/14/19 11:22 Miralax (For Daily Use) - PO 17 gm BID BHARAT Administration Polyethylene Glycol/Electrolytes 4,000 ml 08/16/19 14:00 Golytely Solution - PO 08/16/19 14:01 ONCE ONE Quetiapine Fumarate 50 mg 08/13/19 22:00 08/13/19 22:31 Seroquel - PO 50 mg HS BHARAT Administration Senna/Docusate Sodium 2 tablet 08/13/19 22:00 08/13/19 23:27 Pericolace - PO 2 tablet HS BHARAT Administration ASSESSMENT/PLAN: 53y/o M hx morbid obesity, anxiety, schizoaffective d/o, DVT (on eliquis and plavix), HTN, HLD, DM, ?conversion disorder vs CVA/TIA in past, ?CAD/[place] (x3), peptic ulcer dx, vertigo, ?COPD vs asthma, urinary incontinence, and migraines who presented from [facility] s/p unwitnessed mechanical fall associated with headache/low blood pressure and loss of consciousness. #Syncope - likely 2/2 orthostatic hypotension, poor oral intake, ? viral syndrome as pt presented with vomiting - Orthostatics positive on admission - BUN was slightly elevated upon admission with ? acute drop in Hgb from baseline. Since then, BUN has normalized and Hgb remains stable with no evidence of active bleed. In setting of hx of PUD, GI consulted upon admission. - FOBT ordered but not completed. Patient refusing rectal exam - Fe 12.5, Iron 41, TIBC 287, Fe sat 14 - Echo without significant abnormalities - Cont home meds: Ferrous Sulfate 325 QD - GI would like to complete EGD and colonoscopy on Saturday - Cardiology cleared patient to hold AC, Plavix on hold. Eliquis to be held starting tonight - Lower extremity doppler negative for DVT - Miralax BID, Senna HS #Vertigo - Acute on chronic - Cont Meclizine 25 BID - IV Zofran for nausea PRN #DM - BGM - ISS #HTN/HLD; - Toprol XL 25 BID - Lasix 40 - Atorvastatin 20 HS #Migraine hx/Schizoaffective/Anxiety - Cont home meds: Benztropine 1, Klonopin 0.5 PO BID, Gabapentin 600 BID, Clozaril 200 mg HS, Depakote 750, Fluoxetine 40, Seroquel 50 HS - Close outpatient follow up with psychiatry #Hx of DVT - Cont home meds: Eliquis 5 BID. To be held starting tonight - Holding Plavix for possible EGD, cleared by Cardiology #Hypothyrodism - Cont home med: Synthroid 50 mcg #Asthma - Cont home med: Albuterol inhaler, Symbicort #Morbid Obesity - BMI 45 - Dietary/weight loss counseling. #Prophylaxis - Holding Plavix for EGD - Eliquis - to be held starting tonight - Protonix #FEN - PO hydration - monitor and replete lytes as needed - Diabetic diet #Disposition - cardiology cleared patient for EGD, GI planning for EGD and colonoscopy on Saturday, Eliquis to be held starting tonight, Plavix on hold Visit type - Emergency Visit Emergency Visit: Yes ED Registration Date: 08/12/19 Care time: The patient presented to the Emergency Department on the above date and was hospitalized for further evaluation of their emergent condition. - New Patient This patient is new to me today: No - Critical Care Critical Care patient: No ATTENDING PHYSICIAN STATEMENT I saw and evaluated the patient. I reviewed the resident's note and discussed the case with the resident. I agree with the resident's findings and plan as documented. SUBJECTIVE: OBJECTIVE: ASSESSMENT AND PLAN:
[2019-08-14] MEDS ORDERED: ARTIFICIAL TEARS (POLYVINYL ALCOHOL) OPTH DROPS OU PRN (16:17)
[2019-08-14] MEDS ORDERED: PT OWN MED DRAWER 7, Y5N ONE (21:48)
[2019-08-14] MEDS: QUEtiapine FUMARATE 25 MG TABLET PO SCH (22:51)
[2019-08-14] MEDS: DIVALPROEX NA *ER* EXTEND REL 250 MG TABLET.SA PO SCH (22:52)
[2019-08-14] MEDS: ATORVASTATIN CA 20 MG TABLET (FP) PO SCH (22:52)
[2019-08-14] MEDS: cloZAPine 100 MG TABLET PO SCH (22:53)
[2019-08-14] MEDS: SENNOSIDES/DOCUSATE COMBO (SENNA PLUS) TABLET (UD) PO SCH (22:53)
[2019-08-14] MEDS: BENZTROPINE MESYLATE 1 MG TABLET PO SCH (22:54)
[2019-08-15] MEDS: LEVOTHYROXINE NA 50 MCG TABLET (FP) PO SCH (06:30)
[2019-08-15] MEDS: INSULIN SLIDING SCALE (NOVOLOG) 1 VIAL SQ SCH ×4 (06:30→22:52)
--- NOTE | 2019-08-15 08:37 | PN ---
Physical Exam: SUBJECTIVE: Patient seen and examined. No acute events overnight. OBJECTIVE: Vital Signs Period Temp Pulse Resp BP Sys/Schultz Pulse Ox Last 24 Hr 97.6 F-99.4 F 84-94 18-18 103-141/65-88 94-97 GENERAL: awake, no acute distress, fully oriented HEAD: Normal with no signs of trauma. EYES: EOMI, no scleral icterus ENT: MMM NECK: Trachea midline, full range of motion, supple. LUNGS: Breath sounds equal, clear to auscultation bilaterally, no wheezes, no crackles, no accessory muscle use. HEART: Regular rate and rhythm, S1, S2 without murmur, rub or gallop. ABDOMEN: Soft, mild diffuse tenderness to palpation over abd, nondistended, normoactive bowel sounds, no guarding, no rebound EXTREMITIES: 2+ pulses, warm, well-perfused, no edema. NEUROLOGICAL: normal speech, gait not observed PSYCH: Normal mood, normal affect. SKIN: Warm, dry, normal turgor Laboratory Results - last 24 hr 08/14/19 08/14/19 08/14/19 11:28 16:07 21:24 POC Glucometer 151 215 282 08/15/19 06:28 POC Glucometer 195 Active Medications Generic Name Dose Route Start Last Admin Trade Name Freq PRN Reason Stop Dose Admin Acetaminophen 650 mg 08/13/19 21:15 Tylenol - PO Q4H PRN HEADACHE Albuterol Sulfate 1 puff 08/13/19 21:15 Ventolin Hfa Inhaler - IH Q4H PRN copd Apixaban 5 mg 08/13/19 22:00 08/14/19 22:52 Eliquis - PO 5 mg BID BHARAT Administration Artificial Tears 1 drop 08/14/19 16:17 08/14/19 17:01 Artificial Tears OU 1 drop Q24H PRN Administration dry eyes Atorvastatin Calcium 20 mg 08/13/19 22:00 08/14/19 22:52 Lipitor - PO 20 mg HS BHARAT Administration Benztropine Mesylate 1 mg 08/13/19 22:00 08/14/19 22:54 Cogentin - PO 1 mg HS BHARAT Administration Bisacodyl 20 mg 08/16/19 13:00 Dulcolax - PO 08/16/19 13:01 ONCE ONE Budesonide/Formoterol Fumarate 2 puff 08/13/19 22:00 08/14/19 22:57 Symbicort 80/4.5mcg - IH Not Given BID BHARAT Clonazepam 0.5 mg 08/13/19 22:00 08/14/19 22:52 Klonopin - PO 0.5 mg BID BHARAT Administration Clopidogrel Bisulfate 75 mg 08/14/19 10:00 Plavix - PO DAILY BHARAT Clozapine 200 mg 08/13/19 22:00 08/14/19 22:53 Clozaril - PO 200 mg HS BHARAT Administration Diphenhydramine HCl 25 mg 08/13/19 21:15 Benadryl - PO HS PRN ALLERGIES Divalproex Sodium 750 mg 08/13/19 22:00 08/14/19 22:52 Depakote *Er* - PO 750 mg HS BHARAT Administration Ferrous Sulfate 325 mg 08/14/19 10:00 08/14/19 11:11 Feosol - PO 325 mg DAILY BHARAT Administration Fluoxetine HCl 40 mg 08/14/19 10:00 08/14/19 11:11 Prozac - PO 40 mg DAILY BHARAT Administration Gabapentin 600 mg 08/13/19 22:00 08/14/19 22:51 Neurontin - PO 600 mg BID BHARAT Administration Insulin Aspart 1 vial 08/13/19 22:00 08/15/19 06:30 Novolog Vial Sliding Scale - SQ 2 units ACHS BHARAT Administration Protocol Levothyroxine Sodium 50 mcg 08/14/19 07:00 08/15/19 06:30 Synthroid - PO 50 mcg DAILY@0700 BHARAT Administration Meclizine HCl 25 mg 08/13/19 21:15 Antivert - PO BID PRN VERTIGO Metoprolol Succinate 25 mg 08/13/19 22:00 08/14/19 22:52 Toprol Xl - PO 25 mg BID BHARAT Administration Ondansetron HCl 4 mg 08/13/19 21:15 Zofran Injection IVPUSH Q6H PRN NAUSEA Pantoprazole Sodium 40 mg 08/13/19 22:00 08/14/19 22:52 Protonix - PO 40 mg BID BHARAT Administration Polyethylene Glycol 17 gm 08/13/19 22:00 08/14/19 22:57 Miralax (For Daily Use) - PO Not Given BID BHARAT Polyethylene Glycol/Electrolytes 4,000 ml 08/16/19 14:00 Golytely Solution - PO 08/16/19 14:01 ONCE ONE Quetiapine Fumarate 50 mg 08/13/19 22:00 08/14/19 22:51 Seroquel - PO 50 mg HS BHARAT Administration Senna/Docusate Sodium 2 tablet 08/13/19 22:00 08/14/19 22:53 Pericolace - PO 2 tablet HS BHARAT Administration ASSESSMENT/PLAN: 53y/o M hx morbid obesity, anxiety, schizoaffective d/o, DVT (on eliquis and plavix), HTN, HLD, DM, ?conversion disorder vs CVA/TIA in past, ?CAD/[place] (x3), peptic ulcer dx, vertigo, ?COPD vs asthma, urinary incontinence, and migraines who presented from [facility] s/p unwitnessed mechanical fall associated with headache/low blood pressure and loss of consciousness. #Syncope - likely 2/2 orthostatic hypotension, poor oral intake, ? viral syndrome as pt presented with vomiting - Orthostatics positive on admission - BUN was slightly elevated upon admission with ? acute drop in Hgb from baseline. Since then, BUN has normalized and Hgb remains stable with no evidence of active bleed. In setting of hx of PUD, GI consulted upon admission. - FOBT ordered but not completed. Patient refusing rectal exam and stating she has not had any bowel movements - Fe 12.5, Iron 41, TIBC 287, Fe sat 14 - Echo without significant abnormalities - Cont home meds: Ferrous Sulfate 325 QD - EGD and colnoscopy on Saturday as per GI. Dulcolax and Golytely ordered for tomorrow. - Cardiology cleared patient to hold AC, Elqiuis and Plavix on hold until after EGD/Colonscopy - Lower extremity doppler negative for DVT - Miralax BID, Senna HS #Vertigo - Acute on chronic - Cont Meclizine 25 BID - IV Zofran for nausea PRN #DM - BGM - ISS #HTN/HLD; - Toprol XL 25 BID - Lasix 40 - Atorvastatin 20 HS #Migraine hx/Schizoaffective/Anxiety - Cont home meds: Benztropine 1, Klonopin 0.5 PO BID, Gabapentin 600 BID, Clozaril 200 mg HS, Depakote 750, Fluoxetine 40, Seroquel 50 HS - Close outpatient follow up with psychiatry #Hx of DVT - Holding Eliquis and Plavix fo GI procedure #Hypothyrodism - Cont home med: Synthroid 50 mcg #Asthma - Cont home med: Albuterol inhaler, Symbicort #Morbid Obesity - BMI 45 - Dietary/weight loss counseling. #Prophylaxis - Eliquis and Plavix on hold as above - Protonix #FEN - PO hydration - monitor and replete lytes as needed - Diabetic diet #Disposition - cardiology cleared patient for EGD/Colonoscopy, GI planning for EGD and colonoscopy on Saturday, Eliquis and Plavix on hold. Dulcolax and Golytely ordered by GI to start tomorrow - NPO at midnight starting saturday night Visit type - Emergency Visit Emergency Visit: Yes ED Registration Date: 08/12/19 Care time: The patient presented to the Emergency Department on the above date and was hospitalized for further evaluation of their emergent condition. - New Patient This patient is new to me today: No - Critical Care Critical Care patient: No ATTENDING PHYSICIAN STATEMENT I saw and evaluated the patient. I reviewed the resident's note and discussed the case with the resident. I agree with the resident's findings and plan as documented. SUBJECTIVE: OBJECTIVE: ASSESSMENT AND PLAN:
[2019-08-15] MEDS ORDERED: PT OWN MED DRAWER 7, Y5N ONE (09:23)
--- NOTE | 2019-08-15 09:27 | PN ---
Progress Note, Physician - Current Medication List Current Medications: Active Medications Acetaminophen (Tylenol -) 650 mg PO Q4H PRN PRN Reason: HEADACHE Albuterol Sulfate (Ventolin Hfa Inhaler -) 1 puff IH Q4H PRN PRN Reason: copd Apixaban (Eliquis -) 5 mg PO BID [facility] Last Admin: 08/14/19 22:52 Dose: 5 mg Documented by: Artificial Tears (Artificial Tears) 1 drop OU Q24H PRN PRN Reason: dry eyes Last Admin: 08/14/19 17:01 Dose: 1 drop Documented by: Atorvastatin Calcium (Lipitor -) 20 mg PO [facility] Last Admin: 08/14/19 22:52 Dose: 20 mg Documented by: Benztropine Mesylate (Cogentin -) 1 mg PO [facility] Last Admin: 08/14/19 22:54 Dose: 1 mg Documented by: Bisacodyl (Dulcolax -) 20 mg PO ONCE ONE Stop: 08/16/19 13:01 Budesonide/Formoterol Fumarate (Symbicort 80/4.5mcg -) 2 puff IH BID [facility] Last Admin: 08/14/19 22:57 Dose: Not Given Documented by: Clonazepam (Klonopin -) 0.5 mg PO BID [facility] Last Admin: 08/14/19 22:52 Dose: 0.5 mg Documented by: Clopidogrel Bisulfate (Plavix -) 75 mg PO DAILY [facility] Clozapine (Clozaril -) 200 mg PO [facility] Last Admin: 08/14/19 22:53 Dose: 200 mg Documented by: Diphenhydramine HCl (Benadryl -) 25 mg PO HS PRN PRN Reason: ALLERGIES Divalproex Sodium (Depakote *Er* -) 750 mg PO [facility] Last Admin: 08/14/19 22:52 Dose: 750 mg Documented by: Ferrous Sulfate (Feosol -) 325 mg PO DAILY [facility] Last Admin: 08/14/19 11:11 Dose: 325 mg Documented by: Fluoxetine HCl (Prozac -) 40 mg PO DAILY [facility] Last Admin: 08/14/19 11:11 Dose: 40 mg Documented by: Gabapentin (Neurontin -) 600 mg PO BID [facility] Last Admin: 08/14/19 22:51 Dose: 600 mg Documented by: Insulin Aspart (Novolog Vial Sliding Scale -) 1 vial SQ [facility]; Protocol Last Admin: 08/15/19 06:30 Dose: 2 units Documented by: Levothyroxine Sodium (Synthroid -) 50 mcg PO DAILY@0700 [facility] Last Admin: 08/15/19 06:30 Dose: 50 mcg Documented by: Meclizine HCl (Antivert -) 25 mg PO BID PRN PRN Reason: VERTIGO Metoprolol Succinate (Toprol Xl -) 25 mg PO BID [facility] Last Admin: 08/14/19 22:52 Dose: 25 mg Documented by: Ondansetron HCl (Zofran Injection) 4 mg IVPUSH Q6H PRN PRN Reason: NAUSEA Pantoprazole Sodium (Protonix -) 40 mg PO BID [facility] Last Admin: 08/14/19 22:52 Dose: 40 mg Documented by: Polyethylene Glycol (Miralax (For Daily Use) -) 17 gm PO BID [facility] Last Admin: 08/14/19 22:57 Dose: Not Given Documented by: Polyethylene Glycol/Electrolytes (Golytely Solution -) 4,000 ml PO ONCE ONE Stop: 08/16/19 14:01 Quetiapine Fumarate (Seroquel -) 50 mg PO [facility] Last Admin: 08/14/19 22:51 Dose: 50 mg Documented by: Senna/Docusate Sodium (Pericolace -) 2 tablet PO [facility] Last Admin: 08/14/19 22:53 Dose: 2 tablet Documented by: - Objective Vital Signs: Vital Signs Temperature 98.5 F 08/15/19 02:00 Pulse Rate 91 H 08/15/19 02:00 Respiratory Rate 18 08/15/19 02:00 Blood Pressure 103/67 08/15/19 02:00 O2 Sat by Pulse Oximetry (%) 97 08/14/19 21:00 Eyes: Yes: WNL, Conjunctiva Clear, EOM Intact HENT: Yes: WNL, Atraumatic, Normocephalic Neck: Yes: WNL, Supple, Trachea Midline Cardiovascular: Yes: WNL, Regular Rate and Rhythm Respiratory: Yes: WNL, Regular, CTA Bilaterally Gastrointestinal: Yes: WNL, Normal Bowel Sounds Genitourinary: Yes: WNL Musculoskeletal: Yes: WNL Extremities: Yes: WNL Edema: No Integumentary: Yes: WNL Neurological: Yes: WNL, Alert, Oriented ...Motor Strength: WNL Psychiatric: Yes: WNL Labs: CBC, BMP 08/13/19 08:30 08/11/19 09:38 INR, PTT INR 1.04 (0.83-1.09) 08/07/19 20:00 Problem List - Problems (1) Anemia Code(s): D64.9 - ANEMIA, UNSPECIFIED Qualifiers: Iron deficiency anemia type: chronic blood loss (2) Anemia Code(s): D64.9 - ANEMIA, UNSPECIFIED Qualifiers: Anemia type: unspecified type Qualified Code(s): D64.9 - Anemia, unspecified (3) Headache Code(s): R51 - HEADACHE (4) Hypomagnesemia Code(s): E83.42 - HYPOMAGNESEMIA (5) Syncope and collapse Code(s): R55 - SYNCOPE AND COLLAPSE (6) Accidental fall Code(s): W19.XXXA - UNSPECIFIED FALL, INITIAL ENCOUNTER Qualifiers: Encounter type: initial encounter Qualified Code(s): W19.XXXA - Unspecified fall, initial encounter (7) Auditory hallucinations Code(s): R44.0 - AUDITORY HALLUCINATIONS (8) Back pain Code(s): M54.9 - DORSALGIA, UNSPECIFIED (9) Cerebrovascular accident (CVA) Code(s): I63.9 - CEREBRAL INFARCTION, UNSPECIFIED Qualifiers: CVA mechanism: unspecified Qualified Code(s): I63.9 - Cerebral infarction, unspecified (10) Chest pain Code(s): R07.9 - CHEST PAIN, UNSPECIFIED Qualifiers: Chest pain type: unspecified Qualified Code(s): R07.9 - Chest pain, unspecified (11) Depression Code(s): F32.9 - MAJOR DEPRESSIVE DISORDER, SINGLE EPISODE, UNSPECIFIED Qualifiers: Depression Type: unspecified Qualified Code(s): F32.9 - Major depressive disorder, single episode, unspecified (12) Face pain Code(s): R51 - HEADACHE (13) Fall Code(s): W19.XXXA - UNSPECIFIED FALL, INITIAL ENCOUNTER (14) Head injury Code(s): S09.90XA - UNSPECIFIED INJURY OF HEAD, INITIAL ENCOUNTER Qualifiers: Encounter type: initial encounter Qualified Code(s): S09.90XA - Unspecified injury of head, initial encounter (15) Inability to ambulate due to hip Code(s): R26.2 - DIFFICULTY IN WALKING, NOT ELSEWHERE CLASSIFIED (16) Knee pain Code(s): M25.569 - PAIN IN UNSPECIFIED KNEE Qualifiers: Chronicity: acute Laterality: right Qualified Code(s): M25.561 - Pain in right knee (17) Left-sided weakness Code(s): R53.1 - WEAKNESS (18) Schizophrenia Code(s): F20.9 - SCHIZOPHRENIA, UNSPECIFIED Qualifiers: Schizophrenia type: unspecified Qualified Code(s): F20.9 - Schizophrenia, unspecified (19) Suicidal ideations Code(s): R45.851 - SUICIDAL IDEATIONS (20) Asthma Code(s): J45.909 - UNSPECIFIED ASTHMA, UNCOMPLICATED Qualifiers: Asthma severity: moderate Asthma persistence: persistent Asthma complication type: unspecified Qualified Code(s): J45.40 - Moderate persistent asthma, uncomplicated (21) Bipolar 1 disorder, depressed Code(s): F31.9 - BIPOLAR DISORDER, UNSPECIFIED (22) Bipolar disorder Code(s): F31.9 - BIPOLAR DISORDER, UNSPECIFIED Qualifiers: Psychotic features: without psychotic features (23) CAD (coronary artery disease) Code(s): I25.10 - ATHSCL HEART DISEASE OF [place] CORONARY ARTERY W/O ANG PCTRS Qualifiers: Coronary Disease-Associated Artery/Lesion type: [place] artery [place] vs. transplanted heart: [place] heart Associated angina: without angina Qualified Code(s): I25.10 - Atherosclerotic heart disease of [place] coronary artery without angina pectoris (24) COPD (chronic obstructive pulmonary disease) Code(s): J44.9 - CHRONIC OBSTRUCTIVE PULMONARY DISEASE, UNSPECIFIED Qualifiers: COPD type: unspecified COPD Qualified Code(s): J44.9 - Chronic obstructive pulmonary disease, unspecified (25) Chronic low back pain Code(s): M54.5 - LOW BACK PAIN; G89.29 - OTHER CHRONIC PAIN Qualifiers: Back pain laterality: unspecified Sciatica presence: unspecified whether sciatica present Qualified Code(s): M54.5 - Low back pain; G89.29 - Other chronic pain; G89.29 - Other chronic pain (26) DVT (deep venous thrombosis) Code(s): I82.409 - ACUTE EMBOLISM AND THOMBOS UNSP DEEP VN UNSP LOWER EXTREMITY (27) Diabetes type 2, controlled Code(s): E11.9 - TYPE 2 DIABETES MELLITUS WITHOUT COMPLICATIONS Qualifiers: 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 detention insulin use: without detention use 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 complication status: with unspecified complications Qualified Code(s): E11.8 - Type 2 diabetes mellitus with unspecified complications (28) HTN (hypertension) Code(s): I10 - ESSENTIAL (PRIMARY) HYPERTENSION Qualifiers: Hypertension type: essential hypertension Qualified Code(s): I10 - Essential (primary) hypertension (29) Hx of detention use of 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 Code(s): Z79.01 - RN MATERNAL CHILD (CURRENT) USE OF ANTICOAGULANTS (30) Hyperlipidemia Code(s): E78.5 - HYPERLIPIDEMIA, UNSPECIFIED Qualifiers: Hyperlipidemia type: pure hypercholesterolemia Qualified Code(s): E78.00 - Pure hypercholesterolemia, unspecified; E78.0 - Pure hypercholesterolemia (31) Leg pain, bilateral Code(s): M79.604 - PAIN IN RIGHT LEG; M79.605 - PAIN IN LEFT LEG (32) Morbid obesity Code(s): E66.01 - MORBID (SEVERE) OBESITY DUE TO EXCESS CALORIES (33) Pelvic fracture Code(s): S32.9XXA - FRACTURE OF UNSP PARTS OF LUMBOSACRAL SPINE AND PELVIS, INIT Qualifiers: Encounter type: subsequent encounter (34) Dizziness Code(s): R42 - DIZZINESS AND GIDDINESS (35) Enterococcus UTI Code(s): N39.0 - URINARY TRACT INFECTION, SITE NOT SPECIFIED; B95.2 - ENTEROCOCCUS THE CAUSE OF DISEASES CLASSIFIED ELSEWHERE (36) Fall Code(s): W19.XXXA - UNSPECIFIED FALL, INITIAL ENCOUNTER (37) Neurological muscle weakness Code(s): M62.81 - MUSCLE WEAKNESS (GENERALIZED) (38) ARVIND treated with BiPAP Code(s): G47.33 - OBSTRUCTIVE SLEEP APNEA (ADULT) (PEDIATRIC) (39) Weakness Code(s): R53.1 - WEAKNESS Assessment/Plan ASSESSMENT: 1. Pre-procedure cardiovascular evaluation prior to proceeding with EGD for evaluation of anemia/tarry stool in a patient with known history of coronary artery disease post reported myocardial infarction angina pectoris/Clinically stable 2. Syncope, vasovagal with nausea/emesis and orthostasis 3. Diastolic left ventricular dysfunction with clinical class 0 [place] [employer] classification of ventricular failure 4. History of cerebrovascular event/transient ischemic attack on Plavix therapy/Aspirin allergy 5. Hypertensive cardiovascular disease 6. 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 7. Hypercholesterolemia 8. Deep vein thrombosis on DOAC/Eliquis therapy 9. Microcytic anemia/tarry stool r/o GI source 10. Obstructive sleep apnea 11. History of schizophrenia, bipolar disorder 12. Obesity 13. Hypothyroidism PLAN: Same: 1. Continue Toprol-XL 25 bid 2. Ideally patient should be on NGOZI inhibitor or angiotensin receptor chuy therapy unless they are absolutely contraindicated 3. Continue Lipitor 20 qhs 4. D/c Lasix 40 qd given euvolemia 5. There are no absolute contraindications in proceeding with the above planned EGD/colonoscopy Saturday considering that there is no clinical evidence of acute coronary syndrome and/or decompensated congestive heart failure and/or malignant ventricular arrhythmia, Plavix therapy has been withheld for 5-7 days prior to the above planned procedure/Eliquis therapy to be withheld for 24-48 hours prior to the above planned procedure- patient's cardiovascular medications are to be administered in the morning of the procedure with a sip of water 6. Protonix, bowel regimen
[2019-08-15] MEDS: FERROUS SO4 325 MG TABLET (FP) PO SCH (09:45)
[2019-08-15] MEDS: FLUoxetine HCL 20 MG CAPSULE PO SCH (09:45)
[2019-08-15] MEDS: POLYETHYLENE GLYCOL 3350 119 GM BTL PO SCH ×2 (09:46→22:42)
[2019-08-15] MEDS: PANTOPRAZOLE 40 MG TABLET PO SCH ×2 (09:46→22:42)
[2019-08-15] MEDS: GABAPENTIN 300 MG CAPSULE PO SCH ×2 (09:46→22:41)
[2019-08-15] MEDS: metoPROLOL SUCCINATE 25 MG TAB.SR.24H (FP) PO SCH ×2 (09:47→22:42)
[2019-08-15] MEDS: BUDESONIDE/FORMETEROL FUMARATE 80/4.5 mcg INHALER IH SCH ×2 (09:47→22:59)
[2019-08-15] MEDS: clonazePAM 0.5 MG TABLET PO SCH ×2 (09:47→22:40)
--- NOTE | 2019-08-15 13:12 | PN ---
Teaching Attending Note Name of Resident: Sterling Amador ATTENDING PHYSICIAN STATEMENT I saw and evaluated the patient. I reviewed the resident's note and discussed the case with the resident. I agree with the resident's findings and plan as documented. SUBJECTIVE: Feeling okay. Reports some ongoing abdominal discomfort. Eating well. No nausea/vomiting/melena/hematochezia/hematemesis. OBJECTIVE: Afebrile, Hemodynamically stable. Last Vital Signs Temp Pulse Resp BP Pulse Ox 98.7 F 89 18 119/56 L 97 08/15/19 09:29 08/15/19 09:29 08/15/19 09:29 08/15/19 09:29 08/15/19 09:00 Heart - S1, S2, RRR Lungs - clear to auscultation Abdomen - High BMI. Soft. Mild generalized tenderness. Bowel Sounds normal. Extremities - bilateral calf tenderness. No edema. Laboratory Results - last 24 hr 08/14/19 08/14/19 08/15/19 16:07 21:24 06:28 POC Glucometer 215 282 195 08/15/19 11:55 POC Glucometer 194 Current Medications Generic Name Dose Route Start Last Admin Trade Name Freq PRN Reason Stop Dose Admin Acetaminophen 650 mg 08/13/19 21:15 Tylenol - PO Q4H PRN HEADACHE Albuterol Sulfate 1 puff 08/13/19 21:15 Ventolin Hfa Inhaler - IH Q4H PRN copd Apixaban 5 mg 08/13/19 22:00 08/14/19 22:52 Eliquis - PO 5 mg BID [facility] Administration Artificial Tears 1 drop 08/14/19 16:17 08/14/19 17:01 Artificial Tears OU 1 drop Q24H PRN Administration dry eyes Atorvastatin Calcium 20 mg 08/13/19 22:00 08/14/19 22:52 Lipitor - PO 20 mg HS [facility] Administration Benztropine Mesylate 1 mg 08/13/19 22:00 08/14/19 22:54 Cogentin - PO 1 mg HS [facility] Administration Bisacodyl 20 mg 08/16/19 13:00 Dulcolax - PO 08/16/19 13:01 ONCE ONE Budesonide/Formoterol Fumarate 2 puff 08/13/19 22:00 08/15/19 09:47 Symbicort 80/4.5mcg - IH 2 puff BID [facility] Administration Clonazepam 0.5 mg 08/13/19 22:00 08/15/19 09:47 Klonopin - PO 0.5 mg BID [facility] Administration Clopidogrel Bisulfate 75 mg 08/14/19 10:00 Plavix - PO DAILY [facility] Clozapine 200 mg 08/13/19 22:00 08/14/19 22:53 Clozaril - PO 200 mg HS [facility] Administration Diphenhydramine HCl 25 mg 08/13/19 21:15 Benadryl - PO HS PRN ALLERGIES Divalproex Sodium 750 mg 08/13/19 22:00 08/14/19 22:52 Depakote *Er* - PO 750 mg HS [facility] Administration Ferrous Sulfate 325 mg 08/14/19 10:00 08/15/19 09:45 Feosol - PO 325 mg DAILY [facility] Administration Fluoxetine HCl 40 mg 08/14/19 10:00 08/15/19 09:45 Prozac - PO 40 mg DAILY [facility] Administration Gabapentin 600 mg 08/13/19 22:00 08/15/19 09:46 Neurontin - PO 600 mg BID [facility] Administration Insulin Aspart 1 vial 08/13/19 22:00 08/15/19 11:56 Novolog Vial Sliding Scale - SQ 2 units ACHS [facility] Administration Protocol Levothyroxine Sodium 50 mcg 08/14/19 07:00 08/15/19 06:30 Synthroid - PO 50 mcg DAILY@0700 [facility] Administration Meclizine HCl 25 mg 08/13/19 21:15 Antivert - PO BID PRN VERTIGO Metoprolol Succinate 25 mg 08/13/19 22:00 08/15/19 09:47 Toprol Xl - PO 25 mg BID [facility] Administration Ondansetron HCl 4 mg 08/13/19 21:15 Zofran Injection IVPUSH Q6H PRN NAUSEA Pantoprazole Sodium 40 mg 08/13/19 22:00 08/15/19 09:46 Protonix - PO 40 mg BID [facility] Administration Polyethylene Glycol 17 gm 08/13/19 22:00 08/15/19 09:46 Miralax (For Daily Use) - PO 17 gm BID [facility] Administration Polyethylene Glycol/Electrolytes 4,000 ml 08/16/19 14:00 Golytely Solution - PO 08/16/19 14:01 ONCE ONE Quetiapine Fumarate 50 mg 08/13/19 22:00 08/14/19 22:51 Seroquel - PO 50 mg HS [facility] Administration Senna/Docusate Sodium 2 tablet 08/13/19 22:00 08/14/19 22:53 Pericolace - PO 2 tablet HS [facility] Administration Home Medications Medication Instructions Recorded Albuterol Sulfate Inhaler - 1 inh PO Q4H PRN 06/15/17 [Ventolin HFA Inhaler -] Clonazepam 0.5 mg PO Q12H 06/15/17 Ferrous Sulfate 325 mg PO DAILY 06/15/17 Fluoxetine HCl 40 mg PO DAILY 06/15/17 Gabapentin 600 mg PO BID 06/15/17 Levothyroxine [Synthroid -] 100 mcg PO DAILY 06/15/17 Nitroglycerin Sublingual 0.4 mg SL PRN PRN 06/15/17 [Nitrostat -] Quetiapine Fumarate [Seroquel] 50 mg PO HS 06/15/17 Sennosides/Docusate Sodium [Senna 2 each PO HS 06/15/17 Laxative Tablet] Apixaban [Eliquis -] 5 mg PO BID tablet 06/23/17 Budesonide/Formeterol Fumarate 2 inh IH Q12H 06/23/17 [SYMBICORT 80/4.5mcg -] Docusate Sodium [Colace] 100 mg PO DAILY 06/23/17 Furosemide [Lasix -] 40 mg PO DAILY tablet 06/23/17 Metoprolol Succinate [Toprol Xl] 50 mg PO DAILY 06/23/17 Simvastatin [Zocor -] 40 mg PO HS 09/12/17 metFORMIN HCL [Metformin HCl] 500 mg PO BIDAC 09/12/17 Benztropine Mesylate [Cogentin -] 2 mg PO HS 09/23/17 Divalproex *ER* [Depakote *ER* -] 3 tab PO HS 09/23/17 Clozapine [Clozaril] 200 mg PO HS 08/08/19 Pantoprazole Sodium [Protonix -] 40 mg PO BID 08/08/19 Clopidogrel Bisulfate [Plavix] 75 mg PO DAILY 08/09/19 Atorvastatin Ca [Lipitor] 20 mg PO HS 08/10/19 Divalproex *ER* [Depakote *ER* -] 250 mg PO HS 08/10/19 Gabapentin 400 mg PO BID 08/10/19 Magnesium Oxide 400 mg PO DAILY 08/10/19 Melatonin 3 mg PO DAILY 08/10/19 Prazosin HCl [Minipress] 2 mg PO DAILY 08/10/19 Sitagliptin Phosphate [Januvia] 50 mg PO DAILY 08/10/19 Sucralfate [Carafate -] 1 gm PO QID 08/10/19 ASSESSMENT/PLAN: 53 year old female with history of morbid obesity, anxiety, schizophrenia, recurrent DVT (on eliquis), HTN, HLD, DM 2, ? conversion disorder, CAD s/p RI (x3) on Plavix (allergic to ASA), PUD, asthma, chronic anemia, history of BPPV, COPD, urinary incontinence, and migraines, presents from [facility] Living with Syncope/nausea/vomiting/dark stool. 1. Syncope secondary to Orthostasis due to dehydration sec to nausea/vomiting, possible viral gastroenteritis, now resolved. Echo - normal US Duplex LEs negative. Symptoms resolved. Seen and cleared by Cardiology. 2. Iron Deficiency Anemia, appears chronic Reported Melena - no further episodes. Seen by GI - recommend EGD/[place] Cleared by Cardiology for EGD s/p holding Plavix for 5-7 days and Eliquis for 24-48 hours prior to GI studies. Hemodynamicaly Stable. H/H stable. GI preference to keep in-patient for 7 days off Plavix for an in-patient endoscopy study. Aim for EGD/[place] 08/16 - Eliquis and Plavix held. Bowel prep 08/15 3. CAD s/p RI x 3. Plavix held for EGD. Continue BB and Statin 4. Hx DVT - Eliquis to be held 24-48 hours before EGD. US Duplex LEs negative. 5. BPPV - Continue Meclizine. May benefit from vestibular rehab as out-patient. 6. DM 2, uncontrolled. A1C 7.4. Maintain on Novolog sliding scale. Resume Januvia/Metformin on discharge. 7. HTN - Continue Toprol XL. 8. Hypothyroidism - continue Levothyroxine. 9. Schizophrenia/Bipolar Disorder - Stable. Continue Seroquel, Clozapine, Cogentin, Clonazepam, Fluoxetine, Depakote. 10. Chronic Diastolic CHF - Stable. Lasix discontinued by Cardiology. 11. COPD - stable. On Symbicort, Albuterol PRN. GI Px - Protonix BID DVT Px - on Eliquis (currently held 48 hours prior to EGD)
[2019-08-15] MEDS: ACETAMINOPHEN 325 MG TABLET (FP) PO PRN (20:14)
[2019-08-15] MEDS ORDERED: MORPHINE SULFATE 2 MG/ML VIAL IVPUSH ONE (21:17)
[2019-08-15] MEDS: cloZAPine 100 MG TABLET PO SCH (22:39)
[2019-08-15] MEDS: DIVALPROEX NA *ER* EXTEND REL 250 MG TABLET.SA PO SCH (22:40)
[2019-08-15] MEDS: BENZTROPINE MESYLATE 1 MG TABLET PO SCH (22:40)
[2019-08-15] MEDS: ATORVASTATIN CA 20 MG TABLET (FP) PO SCH (22:41)
[2019-08-15] MEDS: QUEtiapine FUMARATE 25 MG TABLET PO SCH (22:42)
[2019-08-15] MEDS: SENNOSIDES/DOCUSATE COMBO (SENNA PLUS) TABLET (UD) PO SCH (22:42)
[2019-08-16] MEDS: LEVOTHYROXINE NA 50 MCG TABLET (FP) PO SCH (06:55)
[2019-08-16] MEDS: INSULIN SLIDING SCALE (NOVOLOG) 1 VIAL SQ SCH ×4 (06:56→22:02)
--- NOTE | 2019-08-16 09:54 | PN ---
Progress Note, Physician - Current Medication List Current Medications: Active Medications Acetaminophen (Tylenol -) 650 mg PO Q4H PRN PRN Reason: HEADACHE Last Admin: 08/15/19 20:14 Dose: 650 mg Documented by: Albuterol Sulfate (Ventolin Hfa Inhaler -) 1 puff IH Q4H PRN PRN Reason: copd Apixaban (Eliquis -) 5 mg PO BID [facility] Last Admin: 08/14/19 22:52 Dose: 5 mg Documented by: Artificial Tears (Artificial Tears) 1 drop OU Q24H PRN PRN Reason: dry eyes Last Admin: 08/14/19 17:01 Dose: 1 drop Documented by: Atorvastatin Calcium (Lipitor -) 20 mg PO HS [facility] Last Admin: 08/15/19 22:41 Dose: 20 mg Documented by: Benztropine Mesylate (Cogentin -) 1 mg PO [facility] Last Admin: 08/15/19 22:40 Dose: 1 mg Documented by: Bisacodyl (Dulcolax -) 20 mg PO ONCE ONE Stop: 08/16/19 13:01 Budesonide/Formoterol Fumarate (Symbicort 80/4.5mcg -) 2 puff IH BID [facility] Last Admin: 08/15/19 22:59 Dose: Not Given Documented by: Clonazepam (Klonopin -) 0.5 mg PO BID [facility] Last Admin: 08/15/19 22:40 Dose: 0.5 mg Documented by: Clopidogrel Bisulfate (Plavix -) 75 mg PO DAILY [facility] Clozapine (Clozaril -) 200 mg PO [facility] Last Admin: 08/15/19 22:39 Dose: 200 mg Documented by: Diphenhydramine HCl (Benadryl -) 25 mg PO HS PRN PRN Reason: ALLERGIES Divalproex Sodium (Depakote *Er* -) 750 mg PO [facility] Last Admin: 08/15/19 22:40 Dose: 750 mg Documented by: Ferrous Sulfate (Feosol -) 325 mg PO DAILY [facility] Last Admin: 08/15/19 09:45 Dose: 325 mg Documented by: Fluoxetine HCl (Prozac -) 40 mg PO DAILY [facility] Last Admin: 08/15/19 09:45 Dose: 40 mg Documented by: Gabapentin (Neurontin -) 600 mg PO BID [facility] Last Admin: 08/15/19 22:41 Dose: 600 mg Documented by: Insulin Aspart (Novolog Vial Sliding Scale -) 1 vial SQ [facility]; Protocol Last Admin: 08/16/19 06:56 Dose: 2 units Documented by: Levothyroxine Sodium (Synthroid -) 50 mcg PO DAILY@0700 [facility] Last Admin: 08/16/19 06:55 Dose: 50 mcg Documented by: Meclizine HCl (Antivert -) 25 mg PO BID PRN PRN Reason: VERTIGO Metoprolol Succinate (Toprol Xl -) 25 mg PO BID [facility] Last Admin: 08/15/19 22:42 Dose: 25 mg Documented by: Ondansetron HCl (Zofran Injection) 4 mg IVPUSH Q6H PRN PRN Reason: NAUSEA Pantoprazole Sodium (Protonix -) 40 mg PO BID [facility] Last Admin: 08/15/19 22:42 Dose: 40 mg Documented by: Polyethylene Glycol (Miralax (For Daily Use) -) 17 gm PO BID [facility] Last Admin: 08/15/19 22:42 Dose: Not Given Documented by: Polyethylene Glycol/Electrolytes (Golytely Solution -) 4,000 ml PO ONCE ONE Stop: 08/16/19 14:01 Quetiapine Fumarate (Seroquel -) 50 mg PO [facility] Last Admin: 08/15/19 22:42 Dose: 50 mg Documented by: Senna/Docusate Sodium (Pericolace -) 2 tablet PO [facility] Last Admin: 08/15/19 22:42 Dose: 2 tablet Documented by: - Objective Vital Signs: Vital Signs Temperature 97.8 F 08/16/19 06:00 Pulse Rate 80 08/16/19 06:00 Respiratory Rate 18 08/16/19 06:00 Blood Pressure 134/75 08/16/19 06:00 O2 Sat by Pulse Oximetry (%) 97 08/15/19 21:00 Eyes: Yes: WNL, Conjunctiva Clear, EOM Intact HENT: Yes: WNL, Atraumatic, Normocephalic Neck: Yes: WNL, Supple, Trachea Midline Cardiovascular: Yes: WNL, Regular Rate and Rhythm Respiratory: Yes: WNL, Regular, CTA Bilaterally Gastrointestinal: Yes: WNL, Normal Bowel Sounds Genitourinary: Yes: WNL Musculoskeletal: Yes: WNL Extremities: Yes: WNL Edema: No Integumentary: Yes: WNL Neurological: Yes: WNL, Alert, Oriented ...Motor Strength: WNL Psychiatric: Yes: WNL Labs: CBC, BMP 08/13/19 08:30 08/11/19 09:38 INR, PTT INR 1.04 (0.83-1.09) 08/07/19 20:00 Problem List - Problems (1) Anemia Code(s): D64.9 - ANEMIA, UNSPECIFIED Qualifiers: Iron deficiency anemia type: chronic blood loss (2) Anemia Code(s): D64.9 - ANEMIA, UNSPECIFIED Qualifiers: Anemia type: unspecified type Qualified Code(s): D64.9 - Anemia, unspecified (3) Headache Code(s): R51 - HEADACHE (4) Hypomagnesemia Code(s): E83.42 - HYPOMAGNESEMIA (5) Syncope and collapse Code(s): R55 - SYNCOPE AND COLLAPSE (6) Accidental fall Code(s): W19.XXXA - UNSPECIFIED FALL, INITIAL ENCOUNTER Qualifiers: Encounter type: initial encounter Qualified Code(s): W19.XXXA - Unspecified fall, initial encounter (7) Auditory hallucinations Code(s): R44.0 - AUDITORY HALLUCINATIONS (8) Back pain Code(s): M54.9 - DORSALGIA, UNSPECIFIED (9) Cerebrovascular accident (CVA) Code(s): I63.9 - CEREBRAL INFARCTION, UNSPECIFIED Qualifiers: CVA mechanism: unspecified Qualified Code(s): I63.9 - Cerebral infarction, unspecified (10) Chest pain Code(s): R07.9 - CHEST PAIN, UNSPECIFIED Qualifiers: Chest pain type: unspecified Qualified Code(s): R07.9 - Chest pain, unspecified (11) Depression Code(s): F32.9 - MAJOR DEPRESSIVE DISORDER, SINGLE EPISODE, UNSPECIFIED Qualifiers: Depression Type: unspecified Qualified Code(s): F32.9 - Major depressive disorder, single episode, unspecified (12) Face pain Code(s): R51 - HEADACHE (13) Fall Code(s): W19.XXXA - UNSPECIFIED FALL, INITIAL ENCOUNTER (14) Head injury Code(s): S09.90XA - UNSPECIFIED INJURY OF HEAD, INITIAL ENCOUNTER Qualifiers: Encounter type: initial encounter Qualified Code(s): S09.90XA - Unspecified injury of head, initial encounter (15) Inability to ambulate due to hip Code(s): R26.2 - DIFFICULTY IN WALKING, NOT ELSEWHERE CLASSIFIED (16) Knee pain Code(s): M25.569 - PAIN IN UNSPECIFIED KNEE Qualifiers: Chronicity: acute Laterality: right Qualified Code(s): M25.561 - Pain in right knee (17) Left-sided weakness Code(s): R53.1 - WEAKNESS (18) Schizophrenia Code(s): F20.9 - SCHIZOPHRENIA, UNSPECIFIED Qualifiers: Schizophrenia type: unspecified Qualified Code(s): F20.9 - Schizophrenia, unspecified (19) Suicidal ideations Code(s): R45.851 - SUICIDAL IDEATIONS (20) Asthma Code(s): J45.909 - UNSPECIFIED ASTHMA, UNCOMPLICATED Qualifiers: Asthma severity: moderate Asthma persistence: persistent Asthma complication type: unspecified Qualified Code(s): J45.40 - Moderate persistent asthma, uncomplicated (21) Bipolar 1 disorder, depressed Code(s): F31.9 - BIPOLAR DISORDER, UNSPECIFIED (22) Bipolar disorder Code(s): F31.9 - BIPOLAR DISORDER, UNSPECIFIED Qualifiers: Psychotic features: without psychotic features (23) CAD (coronary artery disease) Code(s): I25.10 - ATHSCL HEART DISEASE OF [place] CORONARY ARTERY W/O ANG PCTRS Qualifiers: Coronary Disease-Associated Artery/Lesion type: [place] artery [place] vs. transplanted heart: [place] heart Associated angina: without angina Qualified Code(s): I25.10 - Atherosclerotic heart disease of [place] coronary artery without angina pectoris (24) COPD (chronic obstructive pulmonary disease) Code(s): J44.9 - CHRONIC OBSTRUCTIVE PULMONARY DISEASE, UNSPECIFIED Qualifiers: COPD type: unspecified COPD Qualified Code(s): J44.9 - Chronic obstructive pulmonary disease, unspecified (25) Chronic low back pain Code(s): M54.5 - LOW BACK PAIN; G89.29 - OTHER CHRONIC PAIN Qualifiers: Back pain laterality: unspecified Sciatica presence: unspecified whether sciatica present Qualified Code(s): M54.5 - Low back pain; G89.29 - Other chronic pain; G89.29 - Other chronic pain (26) DVT (deep venous thrombosis) Code(s): I82.409 - ACUTE EMBOLISM AND THOMBOS UNSP DEEP VN UNSP LOWER EXTREMITY (27) Diabetes type 2, controlled Code(s): E11.9 - TYPE 2 DIABETES MELLITUS WITHOUT COMPLICATIONS Qualifiers: 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 alf insulin use: without intermediate card tender use 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 complication status: with unspecified complications Qualified Code(s): E11.8 - Type 2 diabetes mellitus with unspecified complications (28) HTN (hypertension) Code(s): I10 - ESSENTIAL (PRIMARY) HYPERTENSION Qualifiers: Hypertension type: essential hypertension Qualified Code(s): I10 - Essential (primary) hypertension (29) Hx of intermediate card tender use of 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 Code(s): Z79.01 - STREET [employer] (CURRENT) USE OF ANTICOAGULANTS (30) Hyperlipidemia Code(s): E78.5 - HYPERLIPIDEMIA, UNSPECIFIED Qualifiers: Hyperlipidemia type: pure hypercholesterolemia Qualified Code(s): E78.00 - Pure hypercholesterolemia, unspecified; E78.0 - Pure hypercholesterolemia (31) Leg pain, bilateral Code(s): M79.604 - PAIN IN RIGHT LEG; M79.605 - PAIN IN LEFT LEG (32) Morbid obesity Code(s): E66.01 - MORBID (SEVERE) OBESITY DUE TO EXCESS CALORIES (33) Pelvic fracture Code(s): S32.9XXA - FRACTURE OF UNSP PARTS OF LUMBOSACRAL SPINE AND PELVIS, INIT Qualifiers: Encounter type: subsequent encounter (34) Dizziness Code(s): R42 - DIZZINESS AND GIDDINESS (35) Enterococcus UTI Code(s): N39.0 - URINARY TRACT INFECTION, SITE NOT SPECIFIED; B95.2 - ENTEROCOCCUS THE CAUSE OF DISEASES CLASSIFIED ELSEWHERE (36) Fall Code(s): W19.XXXA - UNSPECIFIED FALL, INITIAL ENCOUNTER (37) Neurological muscle weakness Code(s): M62.81 - MUSCLE WEAKNESS (GENERALIZED) (38) ARVIND treated with BiPAP Code(s): G47.33 - OBSTRUCTIVE SLEEP APNEA (ADULT) (PEDIATRIC) (39) Weakness Code(s): R53.1 - WEAKNESS Assessment/Plan ASSESSMENT: 1. Pre-procedure cardiovascular evaluation prior to proceeding with EGD for evaluation of anemia/tarry stool in a patient with known history of coronary artery disease post reported myocardial infarction angina pectoris/Clinically stable 2. Syncope, vasovagal with nausea/emesis and orthostasis 3. Diastolic left ventricular dysfunction with clinical class 0 [place] [employer] classification of ventricular failure 4. History of cerebrovascular event/transient ischemic attack on Plavix therapy/Aspirin allergy 5. Hypertensive cardiovascular disease 6. 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 7. Hypercholesterolemia 8. Deep vein thrombosis on DOAC/Eliquis therapy 9. Microcytic anemia/tarry stool r/o GI source 10. Obstructive sleep apnea 11. History of schizophrenia, bipolar disorder 12. Obesity 13. Hypothyroidism PLAN: Same: 1. Continue Toprol-XL 25 bid 2. Ideally patient should be on NGOZI inhibitor or angiotensin receptor chuy therapy unless they are absolutely contraindicated 3. Continue Lipitor 20 qhs 4. D/c Lasix 40 qd given euvolemia 5. There are no absolute contraindications in proceeding with the above planned EGD/colonoscopy Saturday considering that there is no clinical evidence of acute coronary syndrome and/or decompensated congestive heart failure and/or malignant ventricular arrhythmia, Plavix therapy has been withheld for 5-7 days prior to the above planned procedure/Eliquis therapy to be withheld for 24-48 hours prior to the above planned procedure- patient's cardiovascular medications are to be administered in the morning of the procedure with a sip of water 6. Protonix, bowel regimen Coverage for dr. Mendieta
[2019-08-16] MEDS ORDERED: PT OWN MED DRAWER 7, Y5N ONE ×2 (10:47→13:52)
[2019-08-16] MEDS: PANTOPRAZOLE 40 MG TABLET PO SCH ×2 (10:49→22:03)
[2019-08-16] MEDS: GABAPENTIN 300 MG CAPSULE PO SCH ×2 (10:49→22:01)
[2019-08-16] MEDS: FERROUS SO4 325 MG TABLET (FP) PO SCH (10:50)
[2019-08-16] MEDS: metoPROLOL SUCCINATE 25 MG TAB.SR.24H (FP) PO SCH (10:50)
[2019-08-16] MEDS: clonazePAM 0.5 MG TABLET PO SCH ×2 (10:51→21:58)
[2019-08-16] MEDS: FLUoxetine HCL 20 MG CAPSULE PO SCH (10:51)
[2019-08-16] MEDS: POLYETHYLENE GLYCOL 3350 119 GM BTL PO SCH ×2 (10:51→22:01)
[2019-08-16] MEDS: BUDESONIDE/FORMETEROL FUMARATE 80/4.5 mcg INHALER IH SCH ×2 (10:52→22:03)
[2019-08-16] MEDS ORDERED: INSULIN (NOVOLOG) ASPART 100 UNITS/ML 10ML VIAL ONE (11:47)
[2019-08-16 11:48] LABS: HEMATOCRIT 32.6 % (32.4-45.2); MCH 26.8 pg (25.7-33.7); MCHC 33.7 g/dl (32.0-36.0); MEAN CELL VOLUME 79.5 fl (80-96); MEAN PLT VOLUME 10.5 fl (7.5-11.1); PLATELET COUNT 195 K/MM3 (134-434); RDW 18.3 % (11.6-15.6); WHITE BLOOD COUNT 8.4 K/mm3 (4.0-10.0)
[2019-08-16 11:53] LABS: INR 1.05 (0.83-1.09); PROTHROMBIN TIME (PATIENT) 12.4 SEC (9.7-13.0)
--- NOTE | 2019-08-16 11:53 | PN ---
Progress Note (short form) - Note Progress Note: SUBJECTIVE: Feeling okay. Reports some ongoing abdominal discomfort. Eating well. No nausea/vomiting/melena/hematochezia/hematemesis. OBJECTIVE: Afebrile, Hemodynamically stable. Last Vital Signs Temp Pulse Resp BP Pulse Ox 97.8 F 80 18 134/75 97 08/16/19 06:00 08/16/19 06:00 08/16/19 06:00 08/16/19 06:00 08/15/19 21:00 Heart - S1, S2, RRR Lungs - clear to auscultation Abdomen - High BMI. Soft. Mild generalized tenderness. Bowel Sounds normal. Extremities - bilateral calf tenderness. No edema. Laboratory Results - last 24 hr 08/15/19 08/15/19 08/15/19 11:55 12:00 17:25 POC Glucometer 194 229 Stool Occult Blood Negative 08/15/19 08/16/19 22:45 06:54 POC Glucometer 249 171 Stool Occult Blood Current Medications Generic Name Dose Route Start Last Admin Trade Name Freq PRN Reason Stop Dose Admin Acetaminophen 650 mg 08/13/19 21:15 08/15/19 20:14 Tylenol - PO 650 mg Q4H PRN Administration HEADACHE Albuterol Sulfate 1 puff 08/13/19 21:15 Ventolin Hfa Inhaler - IH Q4H PRN copd Apixaban 5 mg 08/13/19 22:00 08/14/19 22:52 Eliquis - PO 5 mg BID BHARAT Administration Artificial Tears 1 drop 08/14/19 16:17 08/14/19 17:01 Artificial Tears OU 1 drop Q24H PRN Administration dry eyes Atorvastatin Calcium 20 mg 08/13/19 22:00 08/15/19 22:41 Lipitor - PO 20 mg HS BHARAT Administration Benztropine Mesylate 1 mg 08/13/19 22:00 08/15/19 22:40 Cogentin - PO 1 mg HS BHARAT Administration Bisacodyl 20 mg 08/16/19 13:00 Dulcolax - PO 08/16/19 13:01 ONCE ONE Budesonide/Formoterol Fumarate 2 puff 08/13/19 22:00 08/16/19 10:52 Symbicort 80/4.5mcg - IH 2 puff BID BHARAT Administration Clonazepam 0.5 mg 08/13/19 22:00 08/16/19 10:51 Klonopin - PO 0.5 mg BID BHARAT Administration Clopidogrel Bisulfate 75 mg 08/14/19 10:00 Plavix - PO DAILY BHARAT Clozapine 200 mg 08/13/19 22:00 08/15/19 22:39 Clozaril - PO 200 mg HS BHARAT Administration Diphenhydramine HCl 25 mg 08/13/19 21:15 Benadryl - PO HS PRN ALLERGIES Divalproex Sodium 750 mg 08/13/19 22:00 08/15/19 22:40 Depakote *Er* - PO 750 mg HS BHARAT Administration Ferrous Sulfate 325 mg 08/14/19 10:00 08/16/19 10:50 Feosol - PO 325 mg DAILY BHARAT Administration Fluoxetine HCl 40 mg 08/14/19 10:00 08/16/19 10:51 Prozac - PO 40 mg DAILY BHARAT Administration Gabapentin 600 mg 08/13/19 22:00 08/16/19 10:49 Neurontin - PO 600 mg BID BHARAT Administration Insulin Aspart 1 vial 08/13/19 22:00 08/16/19 06:56 Novolog Vial Sliding Scale - SQ 2 units ACHS BHARAT Administration Protocol Levothyroxine Sodium 50 mcg 08/14/19 07:00 08/16/19 06:55 Synthroid - PO 50 mcg DAILY@0700 BHARAT Administration Meclizine HCl 25 mg 08/13/19 21:15 Antivert - PO BID PRN VERTIGO Metoprolol Succinate 25 mg 08/13/19 22:00 08/16/19 10:50 Toprol Xl - PO 25 mg BID BHARAT Administration Ondansetron HCl 4 mg 08/13/19 21:15 Zofran Injection IVPUSH Q6H PRN NAUSEA Pantoprazole Sodium 40 mg 08/13/19 22:00 08/16/19 10:49 Protonix - PO 40 mg BID BHARAT Administration Polyethylene Glycol 17 gm 08/13/19 22:00 08/16/19 10:51 Miralax (For Daily Use) - PO 17 gm BID BHARAT Administration Polyethylene Glycol/Electrolytes 4,000 ml 08/16/19 14:00 Golytely Solution - PO 08/16/19 14:01 ONCE ONE Quetiapine Fumarate 50 mg 08/13/19 22:00 08/15/19 22:42 Seroquel - PO 50 mg HS [facility] Administration Senna/Docusate Sodium 2 tablet 08/13/19 22:00 08/15/19 22:42 Pericolace - PO 2 tablet HS [facility] Administration Home Medications Medication Instructions Recorded Albuterol Sulfate Inhaler - 1 inh PO Q4H PRN 06/15/17 [Ventolin HFA Inhaler -] Clonazepam 0.5 mg PO Q12H 06/15/17 Ferrous Sulfate 325 mg PO DAILY 06/15/17 Fluoxetine HCl 40 mg PO DAILY 06/15/17 Gabapentin 600 mg PO BID 06/15/17 Levothyroxine [Synthroid -] 100 mcg PO DAILY 06/15/17 Nitroglycerin Sublingual 0.4 mg SL PRN PRN 06/15/17 [Nitrostat -] Quetiapine Fumarate [Seroquel] 50 mg PO HS 06/15/17 Sennosides/Docusate Sodium [Senna 2 each PO HS 06/15/17 Laxative Tablet] Apixaban [Eliquis -] 5 mg PO BID tablet 06/23/17 Budesonide/Formeterol Fumarate 2 inh IH Q12H 06/23/17 [SYMBICORT 80/4.5mcg -] Docusate Sodium [Colace] 100 mg PO DAILY 06/23/17 Furosemide [Lasix -] 40 mg PO DAILY tablet 06/23/17 Metoprolol Succinate [Toprol Xl] 50 mg PO DAILY 06/23/17 Simvastatin [Zocor -] 40 mg PO HS 09/12/17 metFORMIN HCL [Metformin HCl] 500 mg PO BIDAC 09/12/17 Benztropine Mesylate [Cogentin -] 2 mg PO HS 09/23/17 Divalproex *ER* [Depakote *ER* -] 3 tab PO HS 09/23/17 Clozapine [Clozaril] 200 mg PO HS 08/08/19 Pantoprazole Sodium [Protonix -] 40 mg PO BID 08/08/19 Clopidogrel Bisulfate [Plavix] 75 mg PO DAILY 08/09/19 Atorvastatin Ca [Lipitor] 20 mg PO HS 08/10/19 Divalproex *ER* [Depakote *ER* -] 250 mg PO HS 08/10/19 Gabapentin 400 mg PO BID 08/10/19 Magnesium Oxide 400 mg PO DAILY 08/10/19 Melatonin 3 mg PO DAILY 08/10/19 Prazosin HCl [Minipress] 2 mg PO DAILY 08/10/19 Sitagliptin Phosphate [Januvia] 50 mg PO DAILY 08/10/19 Sucralfate [Carafate -] 1 gm PO QID 08/10/19 ASSESSMENT/PLAN: 53 year old female with history of morbid obesity, anxiety, schizophrenia, recurrent DVT (on eliquis), HTN, HLD, DM 2, ? conversion disorder, CAD s/p NV (x3) on Plavix (allergic to ASA), PUD, asthma, chronic anemia, history of BPPV, COPD, urinary incontinence, and migraines, presents from [facility] with Syncope/nausea/vomiting/dark stool. 1. Syncope secondary to Orthostasis due to dehydration sec to nausea/vomiting, possible viral gastroenteritis, now resolved. Echo - normal US Duplex LEs negative. Symptoms resolved. Seen and cleared by Cardiology. 2. Iron Deficiency Anemia, appears chronic Reported Melena - no further episodes. Seen by GI - recommend EGD/[place] Cleared by Cardiology for EGD s/p holding Plavix for 5-7 days and Eliquis for 24-48 hours prior to GI studies. Hemodynamicaly Stable. H/H stable. GI preference to keep in-patient for 7 days off Plavix for an in-patient endoscopy study. Planned EGD/[place] 08/16 - Eliquis and Plavix held. Bowel prep 08/15 NPO from midnight. 3. CAD s/p NV x 3. Plavix held for EGD. Continue BB and Statin 4. Hx DVT - Eliquis to be held 24-48 hours before EGD. US Duplex LEs negative. 5. BPPV - Continue Meclizine. May benefit from vestibular rehab as out-patient. 6. DM 2, uncontrolled. A1C 7.4. Maintain on Novolog sliding scale. Resume Januvia/Metformin on discharge. 7. HTN - Continue Toprol XL. 8. Hypothyroidism - continue Levothyroxine. 9. Schizophrenia/Bipolar Disorder - Stable. Continue Seroquel, Clozapine, Cogentin, Clonazepam, Fluoxetine, Depakote. 10. Chronic Diastolic CHF - Stable. Lasix discontinued by Cardiology. 11. COPD - stable. On Symbicort, Albuterol PRN. 12. Morbid Obesity - counseled re: lifestyle modification/surgical options. Recommend ARVIND testing as out-patient on discharge. GI Px - Protonix BID DVT Px - on Eliquis (currently held 48 hours prior to EGD) Visit type - Emergency Visit Emergency Visit: Yes ED Registration Date: 08/12/19 Care time: The patient presented to the Emergency Department on the above date and was hospitalized for further evaluation of their emergent condition. - New Patient This patient is new to me today: No - Critical Care Critical Care patient: No - Discharge Referral Referred to [facility] Med P.C.: No
[2019-08-16 11:56] LABS: ACTIVATED PTT 38.5 SECONDS (25.2-36.5)
[2019-08-16 12:09] LABS: BILIRUBIN,TOTAL 0.2 mg/dL (0.2-1); BLOOD UREA NITROGEN 17.4 mg/dL (7-18); MAGNESIUM 1.6 mg/dL (1.8-2.4); POTASSIUM 4.3 mmol/L (3.5-5.1); TOT PROT 6.9 g/dl (6.4-8.2)
[2019-08-16] MEDS ORDERED: BISACODYL 5 MG TABLET.DR (FP) PO ONE (13:00)
[2019-08-16] MEDS ORDERED: MAGNESIUM SULF 50% (8.12 MEQ/2 ML-1 GM VIAL) IVPB ONE (13:30)
[2019-08-16] MEDS ORDERED: PEG 3350/NA SULF BICARB CL/KCL 4000 ML SOLN.RECON PO ONE (14:00)
[2019-08-16] MEDS: ACETAMINOPHEN 325 MG TABLET (FP) PO PRN (14:04)
[2019-08-16] MEDS: BENZTROPINE MESYLATE 1 MG TABLET PO SCH (21:58)
[2019-08-16] MEDS: DIVALPROEX NA *ER* EXTEND REL 250 MG TABLET.SA PO SCH (21:59)
[2019-08-16] MEDS: ATORVASTATIN CA 20 MG TABLET (FP) PO SCH (22:00)
[2019-08-16] MEDS: SENNOSIDES/DOCUSATE COMBO (SENNA PLUS) TABLET (UD) PO SCH (22:03)
[2019-08-16] MEDS: QUEtiapine FUMARATE 25 MG TABLET PO SCH (22:03)
[2019-08-16] MEDS: cloZAPine 100 MG TABLET PO SCH (22:04)
[2019-08-17] MEDS: metoPROLOL SUCCINATE 25 MG TAB.SR.24H (FP) PO SCH ×3 (00:45→22:28)
[2019-08-17] MEDS: INSULIN SLIDING SCALE (NOVOLOG) 1 VIAL SQ SCH ×4 (06:35→21:29)
[2019-08-17] MEDS: LEVOTHYROXINE NA 50 MCG TABLET (FP) PO SCH ×2 (06:36→09:25)
--- NOTE | 2019-08-17 09:05 | PN ---
Progress Note (short form) - Note Progress Note: surgery asked to r/o abscess on buttock. recomend u/s if this is a clinical concern.
[2019-08-17] MEDS: GABAPENTIN 300 MG CAPSULE PO SCH ×2 (09:25→22:28)
[2019-08-17] MEDS: PANTOPRAZOLE 40 MG TABLET PO SCH ×2 (09:25→22:28)
[2019-08-17] MEDS: clonazePAM 0.5 MG TABLET PO SCH ×2 (09:25→22:27)
[2019-08-17] MEDS: FERROUS SO4 325 MG TABLET (FP) PO SCH (09:25)
[2019-08-17] MEDS: FLUoxetine HCL 20 MG CAPSULE PO SCH (09:26)
[2019-08-17] MEDS: BUDESONIDE/FORMETEROL FUMARATE 80/4.5 mcg INHALER IH SCH ×2 (09:40→22:35)
--- NOTE | 2019-08-17 11:27 | PN ---
Teaching Attending Note Name of Resident: Sterling Amador ATTENDING PHYSICIAN STATEMENT I saw and evaluated the patient. I reviewed the resident's note and discussed the case with the resident. I agree with the resident's findings and plan as documented. SUBJECTIVE: Reports some ongoing abdominal discomfort. Eating well. No nausea/vomiting/melena/hematochezia/hematemesis. R buttock pain/tenderness. OBJECTIVE: Afebrile, Hemodynamically stable. Last Vital Signs Temp Pulse Resp BP Pulse Ox 98.1 F 88 18 114/74 97 08/17/19 06:00 08/17/19 10:00 08/17/19 10:00 08/17/19 10:08/17/19 09:00 Heart - S1, S2, RRR Lungs - clear to auscultation Abdomen - High BMI. Soft. Mild generalized tenderness. Bowel Sounds normal. R Buttock subcutaneous swelling/tenderness, small abrasion on skin ?punctum. No overlying erythema. Extremities - bilateral calf tenderness. No edema. Laboratory Results - last 24 hr 08/16/19 08/16/19 08/16/19 10:38 10:38 10:38 WBC 8.4 RBC 4.10 Hgb 11.0 Hct 32.6 MCV 79.5 L MCH 26.8 MCHC 33.7 RDW 18.3 H Plt Count 195 MPV 10.5 PT with INR 12.40 INR 1.05 PTT (Actin FS) 38.5 H Sodium 144 Potassium 4.3 Chloride 104 Carbon Dioxide 33 H Anion Gap 7 L BUN 17.4 Creatinine 1.0 Est GFR (CKD-EPI)AfAm 75.01 Est GFR (CKD-EPI)NonAf 64.72 POC Glucometer Random Glucose 157 H Calcium 9.0 Magnesium 1.6 L Total Bilirubin 0.2 AST 12 L ALT 19 Alkaline Phosphatase 113 Total Protein 6.9 Albumin 3.0 L Blood Type Antibody Screen 08/16/19 08/16/19 08/16/19 10:38 11:50 17:48 WBC RBC Hgb Hct MCV MCH MCHC RDW Plt Count MPV PT with INR INR PTT (Actin FS) Sodium Potassium Chloride Carbon Dioxide Anion Gap BUN Creatinine Est GFR (CKD-EPI)AfAm Est GFR (CKD-EPI)NonAf POC Glucometer 173 131 Random Glucose Calcium Magnesium Total Bilirubin AST ALT Alkaline Phosphatase Total Protein Albumin Blood Type O POSITIVE Antibody Screen Negative 08/16/19 08/17/19 21:21 06:21 WBC RBC Hgb Hct MCV MCH MCHC RDW Plt Count MPV PT with INR INR PTT (Actin FS) Sodium Potassium Chloride Carbon Dioxide Anion Gap BUN Creatinine Est GFR (CKD-EPI)AfAm Est GFR (CKD-EPI)NonAf POC Glucometer 177 166 Random Glucose Calcium Magnesium Total Bilirubin AST ALT Alkaline Phosphatase Total Protein Albumin Blood Type Antibody Screen Current Medications Generic Name Dose Route Start Last Admin Trade Name Freq PRN Reason Stop Dose Admin Acetaminophen 650 mg 08/13/19 21:15 08/16/19 14:04 Tylenol - PO 650 mg Q4H PRN Administration HEADACHE Albuterol Sulfate 1 puff 08/13/19 21:15 Ventolin Hfa Inhaler - IH Q4H PRN copd Apixaban 5 mg 08/13/19 22:00 08/14/19 22:52 Eliquis - PO 5 mg BID BHARAT Administration Artificial Tears 1 drop 08/14/19 16:17 08/14/19 17:01 Artificial Tears OU 1 drop Q24H PRN Administration dry eyes Atorvastatin Calcium 20 mg 08/13/19 22:00 08/16/19 22:00 Lipitor - PO 20 mg HS BHARAT Administration Benztropine Mesylate 1 mg 08/13/19 22:00 08/16/19 21:58 Cogentin - PO 1 mg HS BHARAT Administration Budesonide/Formoterol Fumarate 2 puff 08/13/19 22:00 08/17/19 09:40 Symbicort 80/4.5mcg - IH Not Given BID BHARAT Clonazepam 0.5 mg 08/13/19 22:00 08/17/19 09:25 Klonopin - PO 0.5 mg BID BHARAT Administration Clopidogrel Bisulfate 75 mg 08/14/19 10:00 Plavix - PO DAILY BHARTA Clozapine 200 mg 08/13/19 22:00 08/16/19 22:04 Clozaril - PO 200 mg HS BHARAT Administration Diphenhydramine HCl 25 mg 08/13/19 21:15 Benadryl - PO HS PRN ALLERGIES Divalproex Sodium 750 mg 08/13/19 22:00 08/16/19 21:59 Depakote *Er* - PO 750 mg HS BHARAT Administration Ferrous Sulfate 325 mg 08/14/19 10:00 08/17/19 09:25 Feosol - PO 325 mg DAILY [facility] Administration Fluoxetine HCl 40 mg 08/14/19 10:00 08/17/19 09:26 Prozac - PO 40 mg DAILY [facility] Administration Gabapentin 600 mg 08/13/19 22:00 08/17/19 09:25 Neurontin - PO 600 mg BID [facility] Administration Insulin Aspart 1 vial 08/13/19 22:00 08/17/19 06:35 Novolog Vial Sliding Scale - SQ Not Given [facility] Protocol Levothyroxine Sodium 50 mcg 08/14/19 07:00 08/17/19 09:25 Synthroid - PO 50 mcg DAILY@0700 [facility] Administration Meclizine HCl 25 mg 08/13/19 21:15 Antivert - PO BID PRN VERTIGO Metoprolol Succinate 25 mg 08/13/19 22:00 08/17/19 00:45 Toprol Xl - PO 25 mg BID [facility] Administration Ondansetron HCl 4 mg 08/13/19 21:15 Zofran Injection IVPUSH Q6H PRN NAUSEA Pantoprazole Sodium 40 mg 08/13/19 22:00 08/17/19 09:25 Protonix - PO 40 mg BID [facility] Administration Polyethylene Glycol 17 gm 08/13/19 22:00 08/16/19 22:01 Miralax (For Daily Use) - PO Not Given BID [facility] Quetiapine Fumarate 50 mg 08/13/19 22:00 08/16/19 22:03 Seroquel - PO 50 mg [facility] Administration Senna/Docusate Sodium 2 tablet 08/13/19 22:00 08/16/19 22:03 Pericolace - PO Not Given [facility] Home Medications Medication Instructions Recorded Albuterol Sulfate Inhaler - 1 inh PO Q4H PRN 06/15/17 [Ventolin HFA Inhaler -] Clonazepam 0.5 mg PO Q12H 06/15/17 Ferrous Sulfate 325 mg PO DAILY 06/15/17 Fluoxetine HCl 40 mg PO DAILY 06/15/17 Gabapentin 600 mg PO BID 06/15/17 Levothyroxine [Synthroid -] 100 mcg PO DAILY 06/15/17 Nitroglycerin Sublingual 0.4 mg SL PRN PRN 06/15/17 [Nitrostat -] Quetiapine Fumarate [Seroquel] 50 mg PO HS 06/15/17 Sennosides/Docusate Sodium [Senna 2 each PO HS 06/15/17 Laxative Tablet] Apixaban [Eliquis -] 5 mg PO BID tablet 06/23/17 Budesonide/Formeterol Fumarate 2 inh IH Q12H 06/23/17 [SYMBICORT 80/4.5mcg -] Docusate Sodium [Colace] 100 mg PO DAILY 06/23/17 Furosemide [Lasix -] 40 mg PO DAILY tablet 06/23/17 Metoprolol Succinate [Toprol Xl] 50 mg PO DAILY 06/23/17 Simvastatin [Zocor -] 40 mg PO HS 09/12/17 metFORMIN HCL [Metformin HCl] 500 mg PO BIDAC 09/12/17 Benztropine Mesylate [Cogentin -] 2 mg PO HS 09/23/17 Divalproex *ER* [Depakote *ER* -] 3 tab PO HS 09/23/17 Clozapine [Clozaril] 200 mg PO HS 08/08/19 Pantoprazole Sodium [Protonix -] 40 mg PO BID 08/08/19 Clopidogrel Bisulfate [Plavix] 75 mg PO DAILY 08/09/19 Atorvastatin Ca [Lipitor] 20 mg PO HS 08/10/19 Divalproex *ER* [Depakote *ER* -] 250 mg PO HS 08/10/19 Gabapentin 400 mg PO BID 08/10/19 Magnesium Oxide 400 mg PO DAILY 08/10/19 Melatonin 3 mg PO DAILY 08/10/19 Prazosin HCl [Minipress] 2 mg PO DAILY 08/10/19 Sitagliptin Phosphate [Januvia] 50 mg PO DAILY 08/10/19 Sucralfate [Carafate -] 1 gm PO QID 08/10/19 ASSESSMENT/PLAN: 53 year old female with history of morbid obesity, anxiety, schizophrenia, recurrent DVT (on eliquis), HTN, HLD, DM 2, ? conversion disorder, CAD s/p MT (x3) on Plavix (allergic to ASA), PUD, asthma, chronic anemia, history of BPPV, COPD, urinary incontinence, and migraines, presents from [facility] with Syncope/nausea/vomiting/dark stool. 1. Syncope secondary to Orthostasis due to dehydration sec to nausea/vomiting, possible viral gastroenteritis, now resolved. Echo - normal US Duplex LEs negative. Symptoms resolved. Seen and cleared by Cardiology. 2. Iron Deficiency Anemia, appears chronic Reported Melena - no further episodes. Seen by GI - recommend EGD/[place] Cleared by Cardiology for EGD s/p holding Plavix for 7 days and Eliquis for 24- 48 hours prior to GI studies. Hemodynamicaly Stable. H/H stable. Planned EGD/[place] 08/16 - Eliquis and Plavix held. Received bowel prep 08/15 3. CAD s/p MT x 3. Plavix held for EGD. Continue BB and Statin 4. Hx DVT - Eliquis currently held before EGD. US Duplex LEs negative. 5. BPPV - Continue Meclizine. May benefit from vestibular rehab as out-patient. 6. DM 2, uncontrolled. A1C 7.4. Maintain on Novolog sliding scale. Resume Januvia/Metformin on discharge. 7. HTN - Continue Toprol XL. 8. Hypothyroidism - continue Levothyroxine. 9. Schizophrenia/Bipolar Disorder - Stable. Continue Seroquel, Clozapine, Cogentin, Clonazepam, Fluoxetine, Depakote. 10. Chronic Diastolic CHF - Stable. Lasix discontinued by Cardiology. 11. COPD - stable. On Symbicort, Albuterol PRN. 12. Morbid Obesity - counseled re: lifestyle modification/surgical options. Recommend ARVIND testing/Pulm referral as out-patient on discharge. 13. Possible R buttock/gluteal abscess, appears deep - Surgery consulted, rec ommend US. GI Px - Protonix BID DVT Px - on Eliquis (currently held prior to EGD)
[2019-08-17] MEDS: POLYETHYLENE GLYCOL 3350 119 GM BTL PO SCH ×2 (12:34→22:35)
[2019-08-17] MEDS ORDERED: MIDAZOLAM HCL 2 MG/2 ML SINGLE DOSE VIAL ONE ×2 (12:52)
--- NOTE | 2019-08-17 14:11 | PN ---
Progress Note (short form) - Note Progress Note: EGD / Colon complete. report placed in procedural section of the physical chart and will be scanned into [employer]. Problem List - Problems (1) Anemia Code(s): D64.9 - ANEMIA, UNSPECIFIED Qualifiers: Anemia type: unspecified type Qualified Code(s): D64.9 - Anemia, unspecified
[2019-08-17] MEDS ORDERED: LIDOCAINE 1%/EPI 1:100000 (20 ML MULTI DOSE VIAL) PNB ONE (15:45)
--- NOTE | 2019-08-17 15:54 | PN ---
Physical Exam: SUBJECTIVE: Patient seen and examined. No acute events overnight. Patient drank her bowel prep, to go for EGD and C-scope today. OBJECTIVE: Vital Signs Period Temp Pulse Resp BP Sys/Schultz Pulse Ox Last 24 Hr 97.3 F-98.4 F 76-99 18-22 94-117/56-82 97-100 GENERAL: awake, no acute distress, fully oriented HEAD: Normal with no signs of trauma. EYES: EOMI, no scleral icterus ENT: MMM NECK: Trachea midline, full range of motion, supple. LUNGS: Breath sounds equal, clear to auscultation bilaterally, no wheezes, no crackles, no accessory muscle use. HEART: Regular rate and rhythm, S1, S2 without murmur, rub or gallop. ABDOMEN: Soft, mild diffuse tenderness to palpation over abd, nondistended, normoactive bowel sounds, no guarding, no rebound EXTREMITIES: 2+ pulses, warm, well-perfused, no edema. NEUROLOGICAL: normal speech, gait not observed PSYCH: Normal mood, normal affect. SKIN: Warm, dry, normal turgor. Small ~1.5x1cm irregularly shaped area over the right buttocks with overlying small white vesicles with underlying induration without surrounding erythema Laboratory Results - last 24 hr 08/16/19 08/16/19 08/17/19 17:48 21:21 06:21 POC Glucometer 131 177 166 08/17/19 12:09 POC Glucometer 184 Active Medications Generic Name Dose Route Start Last Admin Trade Name Freq PRN Reason Stop Dose Admin Acetaminophen 650 mg 08/13/19 21:15 08/16/19 14:04 Tylenol - PO 650 mg Q4H PRN Administration HEADACHE Albuterol Sulfate 1 puff 08/13/19 21:15 Ventolin Hfa Inhaler - IH Q4H PRN copd Apixaban 5 mg 08/13/19 22:00 08/14/19 22:52 Eliquis - PO 5 mg BID BHARAT Administration Artificial Tears 1 drop 08/14/19 16:17 08/14/19 17:01 Artificial Tears OU 1 drop Q24H PRN Administration dry eyes Atorvastatin Calcium 20 mg 08/13/19 22:00 08/16/19 22:00 Lipitor - PO 20 mg HS BHARAT Administration Benztropine Mesylate 1 mg 08/13/19 22:00 08/16/19 21:58 Cogentin - PO 1 mg HS BHARAT Administration Budesonide/Formoterol Fumarate 2 puff 08/13/19 22:00 08/17/19 09:40 Symbicort 80/4.5mcg - IH Not Given BID BHARAT Clonazepam 0.5 mg 08/13/19 22:00 08/17/19 09:25 Klonopin - PO 0.5 mg BID BHARAT Administration Clopidogrel Bisulfate 75 mg 08/14/19 10:00 Plavix - PO DAILY BHARAT Clozapine 200 mg 08/13/19 22:00 08/16/19 22:04 Clozaril - PO 200 mg HS BHARAT Administration Diphenhydramine HCl 25 mg 08/13/19 21:15 Benadryl - PO HS PRN ALLERGIES Divalproex Sodium 750 mg 08/13/19 22:00 08/16/19 21:59 Depakote *Er* - PO 750 mg HS BHARAT Administration Ferrous Sulfate 325 mg 08/14/19 10:00 08/17/19 09:25 Feosol - PO 325 mg DAILY BHARAT Administration Fluoxetine HCl 40 mg 08/14/19 10:00 08/17/19 09:26 Prozac - PO 40 mg DAILY BHARAT Administration Gabapentin 600 mg 08/13/19 22:00 08/17/19 09:25 Neurontin - PO 600 mg BID BHARAT Administration Insulin Aspart 1 vial 08/13/19 22:00 08/17/19 12:35 Novolog Vial Sliding Scale - SQ Not Given [facility] Protocol Levothyroxine Sodium 50 mcg 08/14/19 07:00 08/17/19 09:25 Synthroid - PO 50 mcg DAILY@0700 BHARAT Administration Lidocaine/Epinephrine 20 ml 08/17/19 15:45 Xylocaine 1%-Epi 1:100,000 PNB 08/17/19 15:46 ONCE ONE Meclizine HCl 25 mg 08/13/19 21:15 Antivert - PO BID PRN VERTIGO Metoprolol Succinate 25 mg 08/13/19 22:00 08/17/19 12:35 Toprol Xl - PO Not Given BID BHARAT Ondansetron HCl 4 mg 08/13/19 21:15 Zofran Injection IVPUSH Q6H PRN NAUSEA Pantoprazole Sodium 40 mg 08/13/19 22:00 08/17/19 09:25 Protonix - PO 40 mg BID BHARAT Administration Polyethylene Glycol 17 gm 08/13/19 22:00 08/17/19 12:34 Miralax (For Daily Use) - PO Not Given BID BHARAT Quetiapine Fumarate 50 mg 08/13/19 22:00 08/16/19 22:03 Seroquel - PO 50 mg HS BHARAT Administration Senna/Docusate Sodium 2 tablet 08/13/19 22:00 08/16/19 22:03 Pericolace - PO Not Given HS BHARAT ASSESSMENT/PLAN: 53y/o M hx morbid obesity, anxiety, schizoaffective d/o, DVT (on eliquis and plavix), HTN, HLD, DM, ?conversion disorder vs CVA/TIA in past, ?CAD/[place] (x3), peptic ulcer dx, vertigo, ?COPD vs asthma, urinary incontinence, and migraines who presented from [facility] s/p unwitnessed mechanical fall associated with headache/low blood pressure and loss of consciousness. #Syncope - likely 2/2 orthostatic hypotension, poor oral intake, ? viral syndrome as pt presented with vomiting - Orthostatics positive on admission - BUN was slightly elevated upon admission with ? acute drop in Hgb from baseline. Since then, BUN has normalized and Hgb remains stable with no evidence of active bleed. In setting of hx of PUD, GI consulted upon admission - FOBT negative - Fe 12.5, Iron 41, TIBC 287, Fe sat 14 - Echo without significant abnormalities - Cont home meds: Ferrous Sulfate 325 QD - EGD and colonoscopy completed. EGD shows abnormal mucosa in the cardia of the stomach, biopsies taken. Colonoscopy without abnormal results. recommended to repeat in 3 years. - Lower extremity doppler negative for DVT - Miralax BID, Senna HS #Right buttocks ?abcess vs. cyst - Surgery consulted, Dr. Farfan - pending surgery evaluation #Vertigo - Acute on chronic - Cont Meclizine 25 BID - IV Zofran for nausea PRN #DM - BGM - ISS #HTN/HLD - Toprol XL 25 BID - Lasix 40 - Atorvastatin 20 HS #Migraine hx/Schizoaffective/Anxiety - Cont home meds: Benztropine 1, Klonopin 0.5 PO BID, Gabapentin 600 BID, Clozaril 200 mg HS, Depakote 750, Fluoxetine 40, Seroquel 50 HS - Close outpatient follow up with psychiatry #Hx of DVT - Restart Eliquis tomorrow, restart plavix in 2 days #Hypothyrodism - Cont home med: Synthroid 50 mcg #Asthma - Cont home med: Albuterol inhaler, Symbicort #Morbid Obesity - BMI 45 - Dietary/weight loss counseling. #Prophylaxis - Restart Eliquis tomorrow, Plavix in 2 days - Protonix #FEN - PO hydration - monitor and replete lytes as needed - Diabetic diet #Disposition - EGD, Colonoscopy completed. Pending surgery evaluation of right buttocks lesion. Restart Eliquis tomorrow and Plavix in 2 days Visit type - Emergency Visit Emergency Visit: Yes ED Registration Date: 08/12/19 Care time: The patient presented to the Emergency Department on the above date and was hospitalized for further evaluation of their emergent condition. - New Patient This patient is new to me today: No - Critical Care Critical Care patient: No ATTENDING PHYSICIAN STATEMENT I saw and evaluated the patient. I reviewed the resident's note and discussed the case with the resident. I agree with the resident's findings and plan as documented. SUBJECTIVE: OBJECTIVE: ASSESSMENT AND PLAN:
--- NOTE | 2019-08-17 17:01 | CONS ---
DATE OF CONSULTATION: 08/17/2019 This is a consultation at the request of Didier Wilhelm MD REASON FOR CONSULTATION: Buttock abscess. BRIEF HISTORY: This is a 53-year-old female with multiple medical problems as well as psychiatric problems including morbid obesity, anxiety, schizophrenia, DVT, hypertension, hyperlipidemia, diabetes, stroke, coronary artery disease, [place] x3, peptic ulcer disease, asthma, anemia, vertigo, urinary incontinence, migraines who was admitted to [facility] because of a fall. Today she underwent endoscopy to look for peptic ulcer disease and bleeding. She was on 2 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, Eliquis as well as Plavix. The medical doctor noted on her right buttock an area that clinically was felt to be an abscess, and request was made for an inpatient surgical evaluation for incision and drainage. MEDICATIONS: Patient's home medications have been reviewed. In addition to the 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, she is on 22 other medications. ALLERGIES: Also, her allergies have been reviewed as well, 21 allergies are noted in addition to gravy. SOCIAL HISTORY: Positive for tobacco. Positive for alcohol. Positive for crack cocaine. FAMILY HISTORY: Noncontributory. REVIEW OF SYSTEMS: General: Admits to fatigue and being grouchy. Cardiac: Denies chest pain. Respiratory: Denies shortness of breath. Gastrointestinal: Denies abdominal pain. Genitourinary: Denies dysuria. Musculoskeletal: Admits to arthritic pain. Psychiatric: Denies hearing voices. PHYSICAL EXAMINATION: General: This is a morbidly obese 53-year-old female in no distress. Vital Signs: She is afebrile. Has been the entire admission. HEENT: Her head is normocephalic. Her sclerae are anicteric. Neck: Supple. Chest: Clear. Abdomen: Soft. Extremities: Edema. Skin: On evaluation of her right buttock, she has a small abrasion with, otherwise, normal-appearing skin. Underneath this, it feels as though there is dystrophic fat likely from a recent trauma. There is no ecchymosis. There is no fluctuance. There is no cellulitis. There is no crepitus. At this point, clinically this is not an infection but most likely trauma to the skin and unclear how old the injury was. However, out of an abundance of caution due to the primary care physician's clinical suspicion, I did a needle aspiration to confirm that there was no purulence. At this point, recommend decubiti type soft pad be placed to protect the area and provided cushioning. There is no indication for incision and drainage, no indication for antibiotics, and no general surgery pathology. If the patient does develop a decubitus ulcer in this area, that would be managed by the plastic surgical service and not general surgery. DO KRISTINE TREVIÑO/[id number]
[2019-08-17] MEDS ORDERED: PT OWN MED DRAWER 7, Y5N ONE (21:12)
[2019-08-17] MEDS: QUEtiapine FUMARATE 25 MG TABLET PO SCH (22:28)
[2019-08-17] MEDS: ATORVASTATIN CA 20 MG TABLET (FP) PO SCH (22:28)
[2019-08-17] MEDS: cloZAPine 100 MG TABLET PO SCH (22:28)
[2019-08-17] MEDS: DIVALPROEX NA *ER* EXTEND REL 250 MG TABLET.SA PO SCH (22:28)
[2019-08-17] MEDS: BENZTROPINE MESYLATE 1 MG TABLET PO SCH (22:28)
[2019-08-17] MEDS: SENNOSIDES/DOCUSATE COMBO (SENNA PLUS) TABLET (UD) PO SCH (22:35)
[2019-08-18] MEDS: INSULIN SLIDING SCALE (NOVOLOG) 1 VIAL SQ SCH ×3 (06:09→16:59)
[2019-08-18] MEDS: LEVOTHYROXINE NA 50 MCG TABLET (FP) PO SCH (06:09)
[2019-08-18] MEDS: APIXABAN 5 MG TABLET PO SCH ×3 (07:42→10:42)
[2019-08-18] MEDS ORDERED: PT OWN MED DRAWER 7, Y5N ONE (10:35)
[2019-08-18] MEDS: GABAPENTIN 300 MG CAPSULE PO SCH (10:40)
[2019-08-18] MEDS: metoPROLOL SUCCINATE 25 MG TAB.SR.24H (FP) PO SCH (10:40)
[2019-08-18] MEDS: PANTOPRAZOLE 40 MG TABLET PO SCH (10:41)
[2019-08-18] MEDS: FLUoxetine HCL 20 MG CAPSULE PO SCH (10:41)
[2019-08-18] MEDS: FERROUS SO4 325 MG TABLET (FP) PO SCH (10:41)
[2019-08-18] MEDS: clonazePAM 0.5 MG TABLET PO SCH (10:41)
[2019-08-18] MEDS: BUDESONIDE/FORMETEROL FUMARATE 80/4.5 mcg INHALER IH SCH (10:41)
[2019-08-18] MEDS: POLYETHYLENE GLYCOL 3350 119 GM BTL PO SCH (10:41)
--- NOTE | 2019-08-18 12:22 | DS ---
Physical Exam: SUBJECTIVE: Patient seen and examined. No acute events overnight. Patient states she is happy to be going home today. Still complains of chronic back pain. Denies chest pain, SOB, fever, chills. OBJECTIVE: Vital Signs Period Temp Pulse Resp BP Sys/Schultz Pulse Ox Last 24 Hr 97.6 F-99.8 F 85-99 18-22 104-122/60-80 98-100 PHYSICAL EXAM GENERAL: awake, no acute distress, fully oriented HEAD: Normal with no signs of trauma. EYES: EOMI, no scleral icterus ENT: MMM NECK: Trachea midline, full range of motion, supple. LUNGS: Breath sounds equal, clear to auscultation bilaterally, no wheezes, no crackles, no accessory muscle use. HEART: Regular rate and rhythm, S1, S2 without murmur, rub or gallop. ABDOMEN: Soft, nontender, nondistended, normoactive bowel sounds, no guarding, no rebound EXTREMITIES: 2+ pulses, warm, well-perfused, no edema. NEUROLOGICAL: normal speech, gait not observed PSYCH: Normal mood, normal affect. SKIN: Warm, dry, normal turgor. LABS Laboratory Results - last 24 hr 08/17/19 08/17/19 08/17/19 12:09 17:03 21:21 POC Glucometer 184 231 232 08/18/19 08/18/19 06:07 11:32 POC Glucometer 174 280 HOSPITAL COURSE: Date of Admission:08/12/19 Date of Discharge: 08/18/19 53y/o M hx morbid obesity, anxiety, schizoaffective d/o, DVT (on eliquis and plavix), HTN, HLD, DM, ?conversion disorder vs CVA/TIA in past, ?CAD/[place] (x3), peptic ulcer dx, vertigo, ?COPD vs asthma, urinary incontinence, and migraines who presented from [facility] s/p unwitnessed mechanical fall associated with headache/low blood pressure and loss of consciousness. Orthosta tic vitals were positive on admission, syncope likely 2/2 orthostatic hypotension. Patient noted to be anemic and complained of one episode of tarry stools but had constipation while admitted. She was seen by GI and plan was made for EGD and colonoscopy while admitted. However as patient was on Plavix and Eliquis the EGD and Colonoscopy could not be completed until the Plavix was for 5 days and the Eliquis was held for 2 days. Colonoscopy was negative for acute pathology. EGD found some abnormal tissue in the stomach and samples were taken for biopsy. Patient to follow up with GI after discharge for results of the biopsy. Patient was seen by was seen by surgery Dr. Farfan for a possible abscess of her right buttocks. As per surgery, there was no acute intervention to be done as this is likely dystrophic fat from recent trauma to the area. Minutes to complete discharge: 36 Discharge Summary Problems reviewed: Yes Reason For Visit: SYNCOPE AND COLLAPSE Current Active Problems Anemia (Acute) Anemia (Acute) Headache (Acute) Hypomagnesemia (Acute) Syncope and collapse (Acute) Condition: Stable - Instructions Diet, Activity, Other Instructions: You presented to the hospital due to a fall associated with low blood pressure. You had an ultrasound of heart completed which did not show any significant abnormalities. An ultrasound of your lower extremities was negative for blood clots. You were noted to be anemic but this is chronic due to iron deficiency. You were seen by GI and had a colonoscopy and EGD completed. Your colonoscopy did not show any significant abnormalities but the EGD found some abnormal tissue in your stomach of which samples were taken for biopsy. It is important for you to follow up with GI for the results of your biopsy. Medication Changes: 1. CONTINUE taking Meclizine 25mg twice a day as needed for dizziness. 2. Please restart your Plavix medication tomorrow. Follow up with the following physicians: 1. Please follow up with your primary care provider within one week of discharge for further management of your medical conditions. 2. Please follow up with Dr. Jacques, Gastroenterology, to discuss the results of your EGD and colonoscopy. Activity and Diet 1. Please monitor your diet as you need to intake foods with less salt, sugar and fats. Continue all your other medications as prescribed Please return to the ER if you have any signs or symptoms of chest pain, shortness of breath, uncontrollable fever, chills, nausea, vomiting, numbness, tingling, or weakness in any part of your body, changes in vision, or slurred speech. Please return to the ER if symptoms persist, worsen, or new symptoms arise. Referrals: Rakesh Jacques, [Staff Physician] - ON STAFF,NOT [Non Staff, Medical] - Disposition: HOME - Home Medications Comprehensive Discharge Medication List: Ambulatory Orders Albuterol Sulfate Inhaler - [Ventolin HFA Inhaler -] 1 inh PO Q4H PRN 06/15/17 Clonazepam 1 mg PO Q12H 06/15/17 Ferrous Sulfate 325 mg PO DAILY 06/15/17 Fluoxetine HCl 40 mg PO DAILY 06/15/17 Levothyroxine [Synthroid -] 100 mcg PO DAILY 06/15/17 Sennosides/Docusate Sodium [Senna Laxative Tablet] 2 each PO HS 06/15/17 Apixaban [Eliquis -] 5 mg PO BID tablet 06/23/17 Docusate Sodium [Colace] 100 mg PO DAILY 06/23/17 Metoprolol Succinate [Toprol Xl] 50 mg PO DAILY 06/23/17 Simvastatin [Zocor -] 40 mg PO HS 09/12/17 metFORMIN HCL [Metformin HCl] 500 mg PO BIDAC 09/12/17 Clozapine [Clozaril] 200 mg PO HS 08/08/19 Pantoprazole Sodium [Protonix -] 40 mg PO BID 08/08/19 Clopidogrel Bisulfate [Plavix] 75 mg PO DAILY 08/09/19 Divalproex *ER* [Depakote *ER* -] 250 mg PO HS 08/10/19 Magnesium Oxide 400 mg PO DAILY 08/10/19 Prazosin HCl [Minipress] 2 mg PO DAILY 08/10/19 Sucralfate [Carafate -] 1 gm PO QID 08/10/19 Meclizine HCl [Antivert -] 25 mg PO BID PRN 30 Days #60 tablet 08/18/19 This patient is new to me today: No Emergency Visit: Yes ED Registration Date: 08/12/19 Care time: The patient presented to the Emergency Department on the above date and was hospitalized for further evaluation of their emergent condition. Critical Care patient: No - Discharge Referral Referred to [facility] Med P.C.: No ATTENDING PHYSICIAN STATEMENT I saw and evaluated the patient. I reviewed the resident's note and discussed the case with the resident. I agree with the resident's findings and plan as documented. SUBJECTIVE: OBJECTIVE: ASSESSMENT AND PLAN:
--- NOTE | 2019-08-18 13:09 | PN ---
Progress Note, Physician Chief Complaint: Events noted Not in distress History of Present Illness: Patient was seen and examined. Awake and alert. Chart was reviewed Denies chest pain, SOB or palpitations - Current Medication List Current Medications: Active Medications Acetaminophen (Tylenol -) 650 mg PO Q4H PRN PRN Reason: HEADACHE Last Admin: 08/16/19 14:04 Dose: 650 mg Documented by: Albuterol Sulfate (Ventolin Hfa Inhaler -) 1 puff IH Q4H PRN PRN Reason: copd Apixaban (Eliquis -) 5 mg PO BID [facility] Last Admin: 08/18/19 10:42 Dose: 5 mg Documented by: Artificial Tears (Artificial Tears) 1 drop OU Q24H PRN PRN Reason: dry eyes Last Admin: 08/14/19 17:01 Dose: 1 drop Documented by: Atorvastatin Calcium (Lipitor -) 20 mg PO HS [facility] Last Admin: 08/17/19 22:28 Dose: 20 mg Documented by: Benztropine Mesylate (Cogentin -) 1 mg PO [facility] Last Admin: 08/17/19 22:28 Dose: 1 mg Documented by: Budesonide/Formoterol Fumarate (Symbicort 80/4.5mcg -) 2 puff IH BID [facility] Last Admin: 08/18/19 10:41 Dose: Not Given Documented by: Clonazepam (Klonopin -) 0.5 mg PO BID [facility] Last Admin: 08/18/19 10:41 Dose: 0.5 mg Documented by: Clopidogrel Bisulfate (Plavix -) 75 mg PO DAILY [facility] Clozapine (Clozaril -) 200 mg PO [facility] Last Admin: 08/17/19 22:28 Dose: 200 mg Documented by: Diphenhydramine HCl (Benadryl -) 25 mg PO HS PRN PRN Reason: ALLERGIES Last Admin: 08/18/19 00:10 Dose: 25 mg Documented by: Divalproex Sodium (Depakote *Er* -) 750 mg PO [facility] Last Admin: 08/17/19 22:28 Dose: 750 mg Documented by: Ferrous Sulfate (Feosol -) 325 mg PO DAILY [facility] Last Admin: 08/18/19 10:41 Dose: 325 mg Documented by: Fluoxetine HCl (Prozac -) 40 mg PO DAILY [facility] Last Admin: 08/18/19 10:41 Dose: 40 mg Documented by: Gabapentin (Neurontin -) 600 mg PO BID [facility] Last Admin: 08/18/19 10:40 Dose: 600 mg Documented by: Insulin Aspart (Novolog Vial Sliding Scale -) 1 vial SQ [facility]; Protocol Last Admin: 08/18/19 11:35 Dose: Not Given Documented by: Levothyroxine Sodium (Synthroid -) 50 mcg PO DAILY@0700 [facility] Last Admin: 08/18/19 06:09 Dose: 50 mcg Documented by: Meclizine HCl (Antivert -) 25 mg PO BID PRN PRN Reason: VERTIGO Metoprolol Succinate (Toprol Xl -) 25 mg PO BID [facility] Last Admin: 08/18/19 10:40 Dose: 25 mg Documented by: Ondansetron HCl (Zofran Injection) 4 mg IVPUSH Q6H PRN PRN Reason: NAUSEA Pantoprazole Sodium (Protonix -) 40 mg PO BID [facility] Last Admin: 08/18/19 10:41 Dose: 40 mg Documented by: Polyethylene Glycol (Miralax (For Daily Use) -) 17 gm PO BID [facility] Last Admin: 08/18/19 10:41 Dose: Not Given Documented by: Quetiapine Fumarate (Seroquel -) 50 mg PO [facility] Last Admin: 08/17/19 22:28 Dose: 50 mg Documented by: Senna/Docusate Sodium (Pericolace -) 2 tablet PO [facility] Last Admin: 08/17/19 22:35 Dose: Not Given Documented by: - Objective Vital Signs: Vital Signs Temperature 97.8 F 08/18/19 10:00 Pulse Rate 94 H 08/18/19 10:00 Respiratory Rate 20 08/18/19 10:00 Blood Pressure 98/61 08/18/19 10:00 O2 Sat by Pulse Oximetry (%) 98 08/17/19 21:00 Neck: Yes: Supple Cardiovascular: Yes: Regular Rate and Rhythm, S1, S2 Respiratory: Yes: CTA Bilaterally Gastrointestinal: Yes: Normal Bowel Sounds, Soft. No: Tenderness Edema: No Problem List - Problems (1) Anemia Code(s): D64.9 - ANEMIA, UNSPECIFIED Qualifiers: Anemia type: unspecified type Qualified Code(s): D64.9 - Anemia, unspecified (2) Cerebrovascular accident (CVA) Code(s): I63.9 - CEREBRAL INFARCTION, UNSPECIFIED Qualifiers: CVA mechanism: unspecified Qualified Code(s): I63.9 - Cerebral infarction, unspecified (3) Schizophrenia Code(s): F20.9 - SCHIZOPHRENIA, UNSPECIFIED Qualifiers: Schizophrenia type: unspecified Qualified Code(s): F20.9 - Schizophrenia, unspecified (4) Bipolar disorder Code(s): F31.9 - BIPOLAR DISORDER, UNSPECIFIED Qualifiers: Psychotic features: without psychotic features (5) CAD (coronary artery disease) Code(s): I25.10 - ATHSCL HEART DISEASE OF [place] CORONARY ARTERY W/O ANG PCTRS Qualifiers: Coronary Disease-Associated Artery/Lesion type: [place] artery [place] vs. transplanted heart: [place] heart Associated angina: without angina Qualified Code(s): I25.10 - Atherosclerotic heart disease of [place] coronary artery without angina pectoris (6) COPD (chronic obstructive pulmonary disease) Code(s): J44.9 - CHRONIC OBSTRUCTIVE PULMONARY DISEASE, UNSPECIFIED Qualifiers: COPD type: unspecified COPD Qualified Code(s): J44.9 - Chronic obstructive pulmonary disease, unspecified (7) DVT (deep venous thrombosis) Code(s): I82.409 - ACUTE EMBOLISM AND THOMBOS UNSP DEEP VN UNSP LOWER EXTREMITY (8) Diabetes type 2, controlled Code(s): E11.9 - TYPE 2 DIABETES MELLITUS WITHOUT COMPLICATIONS Qualifiers: 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 ad terminal makeup operator insulin use: without jail use 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 complication status: with unspecified complications Qualified Co de(s): E11.8 - Type 2 diabetes mellitus with unspecified complications (9) HTN (hypertension) Code(s): I10 - ESSENTIAL (PRIMARY) HYPERTENSION Qualifiers: Hypertension type: essential hypertension Qualified Code(s): I10 - Essential (primary) hypertension (10) Hyperlipidemia Code(s): E78.5 - HYPERLIPIDEMIA, UNSPECIFIED Qualifiers: Hyperlipidemia type: pure hypercholesterolemia Qualified Code(s): E78.00 - Pure hypercholesterolemia, unspecified; E78.0 - Pure hypercholesterolemia (11) ARVIND treated with BiPAP Code(s): G47.33 - OBSTRUCTIVE SLEEP APNEA (ADULT) (PEDIATRIC) Assessment/Plan 1. Post EGD for evaluation of anemia/tarry stool in a patient with known history of coronary artery disease post reported myocardial infarction angina pectoris/Clinically stable 2. Syncope, vasovagal with nausea/emesis and orthostasis 3. Diastolic left ventricular dysfunction with clinical class 0 [place] [employer] classification of ventricular failure 4. History of cerebrovascular event/transient ischemic attack on Plavix therapy/Aspirin allergy 5. Hypertensive cardiovascular disease 6. 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 7. Hypercholesterolemia 8. Deep vein thrombosis on DOAC/Eliquis therapy 9. Microcytic anemia/tarry stool 10. History of schizophrenia and bipolar disorder 11. Obesity 12. Hypothyroidism PLAN: 1. Continue Toprol-XL 25 mg BID 2. Ideally patient should be on ACEI or ARB unless they are absolutely contraindicated. Currently with low BP 3. Continue Lipitor 20 mg QHS 4. GI and surgical input noted Ahmet Antunez MD
[2019-08-18 14:09] VITALS: BP 119/73; PULSE 85; TEMP 99
--- NOTE | 2019-08-20 10:27 | PATH ---
Surgical Pathology Report Patient Name: LEXUS ANGEL [facility]. Rec. #: [id number] /Age/Gender: 1965 (Age: 53) / F Account: [id number] Location: [address] [place] [address]/[facility] Taken: 08/17/2019 Received: 08/18/2019 Reported: 08/20/2019 Physicians: Pasha Collins D.O. Specimen(s) Received A: STOMACH, CARDIA B: ANGULARIS AND BODY Clinical History Anemia Postoperative diagnosis: Gastritis, abnormal submucosa in cardia, anemia, normal colon Final Diagnosis A. STOMACH, CARDIA, BIOPSY: GASTRIC CARDIAC TYPE MUCOSA WITH PATCHY SUPERFICIAL EROSION, FIBRINOPURLUENT EXUDATE, BROWN COARSE CRYSTALLINE DEPOSITION, AND REACTIVE CHANGES CONSISTENT WITH "IRON PILL GASTRITIS". IRON SPECIAL STAIN IS POSITIVE. IMMUNOHISTOCHEMICAL STAIN FOR H. PYLORI IS NEGATIVE. SEE COMMENT. B. STOMACH, BODY AND ANGULARIS, BIOPSY: GASTRIC BODY MUCOSA WITH MODERATE CHRONIC GASTRITIS. IMMUNOHISTOCHEMICAL STAIN FOR H. PYLORI IS NEGATIVE. Comment: Suggest clinical and endoscopic correlation. Positive and negative controls (internal if applicable) show appropriate results. Electronically Signed Dotty Rasmussen M.D. Gross Description A. Received in formalin, labeled "biopsy cardia" are 5 xiong, irregular portions of soft tissue ranging from 0.1-0.4 cm. in greatest dimension. The specimens are submitted in toto in one cassette. B. Received in formalin, labeled "biopsy angularis and body" are 2 xiong, irregular portions of soft tissue averaging 0.3 cm. in greatest dimension. The specimens are submitted in toto in one cassette. 08/18/2019 [facility]08/18/2019
== END 2019-08-18 16:54 | disposition home or self-care (01) | DRG 663 ==
LOC: JER 18:03 → JERBED 19:50 → J4S 08-08 00:49 → OBSVTOIN 08-12 14:23 → J5S 08-13 21:00
PROVIDERS: ADMIT Internal Medicine; ATTEND Internal Medicine
PROC: 0DB78ZX Excision of Stomach, Pylorus, Via Natural or Artificial Opening Endoscopic, Diagnostic (ICD-10-PCS; 2019-08-17)
PROC: 0DJD8ZZ Inspection of Lower Intestinal Tract, Via Natural or Artificial Opening Endoscopic (ICD-10-PCS; 2019-08-17)
PROC: 0DB68ZX Excision of Stomach, Via Natural or Artificial Opening Endoscopic, Diagnostic (ICD-10-PCS; principal; 2019-08-17 12:00)
DX: D50.9 Iron deficiency anemia, unspecified (principal); A08.4 Viral intestinal infection, unspecified; I25.10 Atherosclerotic heart disease of native coronary artery without angina pectoris; I25.2 Old myocardial infarction; F43.10 Post-traumatic stress disorder, unspecified; E78.5 Hyperlipidemia, unspecified; F31.9 Bipolar disorder, unspecified; E11.9 Type 2 diabetes mellitus without complications; E83.42 Hypomagnesemia; E86.0 Dehydration; I11.0 Hypertensive heart disease with heart failure; J44.9 Chronic obstructive pulmonary disease, unspecified; E03.9 Hypothyroidism, unspecified; I50.32 Chronic diastolic (congestive) heart failure; G47.33 Obstructive sleep apnea (adult) (pediatric); H81.10 Benign paroxysmal vertigo, unspecified ear; R11.2 Nausea with vomiting, unspecified; R51 Headache; L02.31 Cutaneous abscess of buttock; E66.01 Morbid (severe) obesity due to excess calories; R32 Unspecified urinary incontinence; Z68.41 Body mass index [BMI] 40.0-44.9, adult; F20.9 Schizophrenia, unspecified; E88.09 Other disorders of plasma-protein metabolism, not elsewhere classified; F41.9 Anxiety disorder, unspecified; G43.909 Migraine, unspecified, not intractable, without status migrainosus; M54.5 Low back pain; Z86.718 Personal history of other venous thrombosis and embolism; Z87.11 Personal history of peptic ulcer disease; Z86.73 Personal history of transient ischemic attack (TIA), and cerebral infarction without residual deficits; Z79.01 Long term (current) use of anticoagulants
CPT/HCPCS: 36415; 70450-TC; 71045-TC-FY; 72100-TC-FY; 74177-TC; 80048; 80053; 81003; 82272; 82550; 82553; 82728; 82962; 83036; 83540; 83550; 83690; 83735; 84100; 84443; 84484; 85025; 85027; 85610; 85730; 86850; 86900; 86901; 87086; 93005; 93010; 93306-TC; 93970-TC; 97116-GP; 97161-GP; 99285-25; G0378; J0131; Q9967